=== PATIENT | male | born 1945 | race African-American/Black ===

== ENCOUNTER 2016-09-28 08:10 | Emergency (ER) | payer MEDICAID, MEDICARE ==
[~2016-09-28] VITALS: Ht 177.8 cm; Wt 69.4 kg
[2016-09-28 08:41] VITALS: BP 154/90
[2016-09-28] MEDS ORDERED: ACETAMINOPHEN 500 MG TAB PO ONE ×2 (08:41→08:45)
== END 2016-09-28 11:13 | disposition home or self-care (01) ==
LOC: EDBD 08:10 → ER 08:10
DX: S82.002A Unspecified fracture of left patella, initial encounter for closed fracture (principal); S20.211A Contusion of right front wall of thorax, initial encounter; J44.9 Chronic obstructive pulmonary disease, unspecified; E11.9 Type 2 diabetes mellitus without complications; I10 Essential (primary) hypertension; W01.0XXA Fall on same level from slipping, tripping and stumbling without subsequent striking against object, initial encounter; Y93.89 Activity, other specified; Y99.8 Other external cause status; Y92.89 Other specified places as the place of occurrence of the external cause
CPT/HCPCS: 29505; 71101; 73564

== ENCOUNTER 2016-12-30 23:53 | Inpatient (IN) | payer MEDICARE, MEDICAID ==
[~2016-12-30] VITALS: Ht 175.3 cm; Wt 71.2 kg
[2016-12-31 00:20] LABS: Urine RBC None Seen /hpf (0 - 3)
[2016-12-31] MEDS ORDERED: SODIUM CHLORIDE 0.9% 2,000 ML IV ONE (00:30)
[2016-12-31] MEDS ORDERED: PIPERACILLIN-TAZOB 3.375GM 100 ML IV ONE (00:30)
[2016-12-31] MEDS ORDERED: ACETAMINOPHEN 325 MG TAB PO ONE ×2 (00:30→03:15)
[2016-12-31] MEDS ORDERED: VANCOMYCIN 1GM/250ML D5W 250 ML IV ONE (00:30)
[2016-12-31 00:32] LABS: Urine Bilirubin Negative (Negative); Urine Blood Negative /uL (Negative); Urine Color Yellow (Yellow); Urine Glucose 4+ mg/dL (Normal); Urine Ketone 1+ (Negative); Urine Nitrite Negative (Negative); Urine Squamous Epithelial Cell FEW /hpf (<5); Urine Urobilinogen Normal (Negative); Urine pH 6.5 (5.0-8.0)
[2016-12-31 00:55] LABS: DEFINITIVE SEE PRINTOUT; Hemoglobin 10.8 g/dL (13.5-17.5); Mean Corpuscular Hemoglobin 20.6 pg (28.0-32.0); Mean Corpuscular Hgb Conc. 30.9 g/dL (32.0-36.0); Mean Corpuscular Volume 66.8 fL (80.0-100.0); Platelet Count (auto) 117 10^3/uL (140-450); Red Cell Distribution Width 16.5 % (11.6-16.0); SUSPECT SEE PRINTOUT; White Blood Cell 2.8 10^3/uL (4.4-10.8)
[2016-12-31 01:01] LABS: Albumin 3.8 g/dL (3.4-5.0); Anion Gap 12 (5-15); Aspartate Aminotransferase 9 U/L (15-37); BUN/Creatinine Ratio 14.5; Blood Urea Nitrogen 34 mg/dL (7-18); Calcium 8.9 mg/dL (8.5-10.1); Carbon Dioxide 22 mmol/L (21-32); Chloride 105 mmol/L (98-107); GFR African American 35 mL/min; GFR Non-African American 29 mL/min; Glucose 332 mg/dL (74-106); Potassium 4.2 mmol/L (3.5-5.1); Sodium 139 mmol/L (136-145)
[2016-12-31 01:06] LABS: Alkaline Phosphatase 53 U/L (45-117); Bilirubin, Total 0.8 mg/dL (0.2-1.0); Total Protein 8.5 g/dL (6.4-8.2)
[2016-12-31 01:06] LABS: Lactic Acid w/Reflex 2.8 mmol/L (0.4-2.0)
[2016-12-31 01:07] LABS: Metamyelocytes % 0; Myelocytes % 0; Promyelocytes % 0; Reactive Lymphocytes 0
[2016-12-31 01:08] LABS: REFLEX LACTIC ACID YES OR NO YES
[2016-12-31 01:10] LABS: INR 1.05 (0.9-1.15); Prothrombin Time 11.4 sec (9.37-12.3)
[2016-12-31 01:12] LABS: Temperature: 21.9 C (20.0-25.0)
[2016-12-31 02:19] LABS: Anisocytosis Moderate; Hypochromia Marked; Large Platelets FEW; Microcytosis Marked; Platelet Estimate Decrea
[2016-12-31 02:20] LABS: Ovalocytes MODERATE; Schistocytes FEW
[2016-12-31] MEDS ORDERED: SODIUM CHLORIDE 0.9% 1,000 ML IV ONE ×2 (03:15→04:00)
[2016-12-31] MEDS ORDERED: GABA-494 PO (04:46)
[2016-12-31] MEDS ORDERED: ENOX30IN5 SC (04:46)
[2016-12-31] MEDS ORDERED: OXY5T PO (04:46)
[2016-12-31] MEDS ORDERED: ENTE1TAB2 PO (04:46)
[2016-12-31] MEDS ORDERED: MYCO500T PO (04:46)
[2016-12-31] MEDS ORDERED: TACR1CAP19 PO (04:46)
[2016-12-31] MEDS ORDERED: PRE5T PO (04:46)
[2016-12-31] MEDS ORDERED: INSU1INJ5 SC (04:46)
[2016-12-31] MEDS ORDERED: TAMS0.4C36 PO (04:46)
[2016-12-31] MEDS ORDERED: PANT1INJ3 PO (04:46)
[2016-12-31] MEDS ORDERED: MULTCAP45 PO (04:46)
[2016-12-31] MEDS ORDERED: ATOR20TA50 PO (04:46)
[2016-12-31] MEDS ORDERED: FINA5TAB4 PO (04:46)
[2016-12-31] MEDS ORDERED: MORPHINE SULF INJ 2 MG/ML SYRINGE 1ML IV PRN ×2 (05:45)
[2016-12-31] MEDS ORDERED: cloNIDine HCL 0.1 MG TAB PO PRN (05:45)
[2016-12-31] MEDS ORDERED: DEXTROSE (50%) 50ML SYRG IV PRN (05:45)
[2016-12-31] MEDS ORDERED: METOPROLOL TARTRATE 1MG/1ML-5ML VIAL IV ONE (05:45)
[2016-12-31] MEDS ORDERED: VANCOMYCIN PER PHARMACY 0 MG IV SCH (05:45)
[2016-12-31] MEDS ORDERED: TEMAZEPAM 15 MG CAP PO PRN (05:45)
[2016-12-31] MEDS ORDERED: ACETAMINOPHEN 325 MG TAB PO PRN (05:45)
[2016-12-31] MEDS ORDERED: NITROGLYCERIN 0.4 MG SL TAB SL PRN (05:45)
[2016-12-31] MEDS ORDERED: ONDANSETRON HCL 4 MG/2 ML VIAL IV PRN (05:45)
[2016-12-31] MEDS ORDERED: HYDROcodone-ACET 5/325MG TAB PO PRN (05:45)
[2016-12-31] MEDS: SODIUM CHLORIDE 0.9% 1,000 ML IV SCH (05:57)
[2016-12-31] MEDS: ACCU-CHEK COMFORT CURVE STRIP VI SCH ×3 (06:04→17:41)
[2016-12-31] MEDS: InsuLIN REG 1unit/0.01ml Soln (100units/ml) SC SCH ×3 (06:07→17:49)
[2016-12-31] MEDS: PIPERACILLIN-TAZOB 2.25GM 50 ML IV SCH ×3 (06:12→18:15)
[2016-12-31] MEDS ORDERED: IBUPROFEN 600 MG TAB PO ONE (07:30)
[2016-12-31 09:00] VITALS: BP 125/60
[2016-12-31 09:41] VITALS: BP 100/61
[2016-12-31] MEDS: FINASTERIDE 5 MG TAB PO SCH (10:30)
[2016-12-31] MEDS: PANTOPRAZOLE 40 MG TAB PO SCH (10:30)
[2016-12-31] MEDS: ENOXAPARIN SOD 30 MG/0.3 ML SYRINGE SC SCH (10:31)
[2016-12-31] MEDS: predniSONE 5 MG TAB PO SCH (10:31)
[2016-12-31] MEDS: MYCOPHENOLATE 500 MG TAB PO SCH ×2 (10:57→21:15)
[2016-12-31] MEDS: TACROLIMUS 1 MG CAP PO SCH ×2 (10:58→21:15)
[2016-12-31 12:00] VITALS: BP 96/61
[2016-12-31 16:00] VITALS: BP 91/54
[2016-12-31 19:54] VITALS: BP 102/57
[2016-12-31] MEDS: ATORVASTATIN 20 MG TAB PO SCH (21:15)
[2017-01-01] VITALS: BP 126/61
[2017-01-01] MEDS: PIPERACILLIN-TAZOB 2.25GM 50 ML IV SCH ×4 (00:04→17:55)
[2017-01-01] MEDS: InsuLIN REG 1unit/0.01ml Soln (100units/ml) SC SCH ×4 (00:04→17:57)
[2017-01-01] MEDS: ACCU-CHEK COMFORT CURVE STRIP VI SCH ×4 (00:04→17:34)
[2017-01-01] MEDS: SODIUM CHLORIDE 0.9% 1,000 ML IV SCH ×3 (00:05→21:36)
[2017-01-01] MEDS ORDERED: VANCOMYCIN 1GM/250ML D5W 250 ML IV SCH (01:00)
[2017-01-01 04:00] VITALS: BP 138/69
[2017-01-01 05:00] LABS: CONDITION Y; DEFINITIVE SEE PRINTOUT; Hemoglobin 9.9 g/dL (13.5-17.5); Mean Corpuscular Hemoglobin 20.8 pg (28.0-32.0); Mean Corpuscular Hgb Conc. 31.1 g/dL (32.0-36.0); Mean Corpuscular Volume 66.8 fL (80.0-100.0); Mean Platelet Volume 9.5 fL (7.4-10.4); Platelet Count (auto) 110 10^3/uL (140-450); Red Cell Distribution Width 18.5 % (11.6-16.0); SUSPECT SEE PRINTOUT; White Blood Cell 4.1 10^3/uL (4.4-10.8)
[2017-01-01 05:10] LABS: Metamyelocytes % 0; Myelocytes % 0; Promyelocytes % 0; Reactive Lymphocytes 0
[2017-01-01 05:18] LABS: Albumin 2.9 g/dL (3.4-5.0); BUN/Creatinine Ratio 14.7; Bilirubin, Total 0.8 mg/dL (0.2-1.0); Magnesium 1.9 mg/dL (1.6-2.6); Potassium 4.1 mmol/L (3.5-5.1)
[2017-01-01 05:21] LABS: Lactic Acid w/Reflex 2.4 mmol/L (0.4-2.0)
[2017-01-01 05:26] LABS: REFLEX LACTIC ACID YES OR NO NO
[2017-01-01 05:44] LABS: Anisocytosis Moderate; Hypochromia Marked; Microcytosis Marked; Ovalocytes MODERATE; Platelet Estimate Decreased
[2017-01-01 08:00] VITALS: BP 147/80
[2017-01-01] MEDS: PANTOPRAZOLE 40 MG TAB PO SCH (09:53)
[2017-01-01] MEDS: predniSONE 5 MG TAB PO SCH (09:54)
[2017-01-01] MEDS: FINASTERIDE 5 MG TAB PO SCH (09:54)
[2017-01-01] MEDS: TACROLIMUS 1 MG CAP PO SCH ×2 (09:55→22:23)
[2017-01-01] MEDS: MYCOPHENOLATE 500 MG TAB PO SCH ×2 (09:55→22:22)
[2017-01-01] MEDS: ENOXAPARIN SOD 30 MG/0.3 ML SYRINGE SC SCH (09:56)
[2017-01-01 12:00] VITALS: BP 141/73
[2017-01-01] MEDS ORDERED: MAGNESIUM SULFATE 1GM/100ML 100 ML IV ONE (13:30)
[2017-01-01] MEDS ORDERED: FLUCONAZOLE 100MG/50ML 50 ML IV ONE (13:30)
[2017-01-01 15:55] VITALS: BP 106/68
[2017-01-01 19:50] VITALS: BP 109/64
[2017-01-01] MEDS: ATORVASTATIN 20 MG TAB PO SCH (22:22)
[2017-01-02] MEDS: ACCU-CHEK COMFORT CURVE STRIP VI SCH ×5 (00:14→23:52)
[2017-01-02] MEDS: InsuLIN REG 1unit/0.01ml Soln (100units/ml) SC SCH ×5 (00:24→23:53)
[2017-01-02 04:59] LABS: CONDITION Y; DEFINITIVE SEE PRINTOUT; Hemoglobin 9.1 g/dL (13.5-17.5); Mean Corpuscular Hemoglobin 20.6 pg (28.0-32.0); Mean Corpuscular Hgb Conc. 31.2 g/dL (32.0-36.0); Mean Platelet Volume 10.8 fL (7.4-10.4); Platelet Count (auto) 109 10^3/uL (140-450); Red Cell Distribution Width 18.1 % (11.6-16.0); SUSPECT SEE PRINTOUT; White Blood Cell 3.2 10^3/uL (4.4-10.8)
[2017-01-02 05:16] LABS: BUN/Creatinine Ratio 12.9; Magnesium 2.3 mg/dL (1.6-2.6); Potassium 3.9 mmol/L (3.5-5.1)
[2017-01-02 05:58] LABS: Metamyelocytes % 0; Myelocytes % 0; Promyelocytes % 0; Reactive Lymphocytes 0
[2017-01-02] MEDS: PIPERACILLIN-TAZOB 2.25GM 50 ML IV SCH ×5 (06:33→23:52)
[2017-01-02 06:56] LABS: Anisocytosis Moderate; Giant Platelets Few; Hypochromia Marked; Large Platelets FEW; Microcytosis Marked; Platelet Estimate Decrea; Stomatocytes Moderate
[2017-01-02 07:30] VITALS: BP 149/84
[2017-01-02] MEDS: SODIUM CHLORIDE 0.9% 1,000 ML IV SCH ×2 (09:17→17:19)
[2017-01-02] MEDS: FLUCONAZOLE 100MG/50ML 50 ML IV SCH (09:17)
[2017-01-02] MEDS: MYCOPHENOLATE 500 MG TAB PO SCH ×2 (09:18→22:23)
[2017-01-02] MEDS: predniSONE 5 MG TAB PO SCH (09:18)
[2017-01-02] MEDS: ENOXAPARIN SOD 30 MG/0.3 ML SYRINGE SC SCH (09:19)
[2017-01-02] MEDS: FINASTERIDE 5 MG TAB PO SCH (09:19)
[2017-01-02] MEDS: TACROLIMUS 1 MG CAP PO SCH ×2 (09:19→22:23)
[2017-01-02] MEDS: PANTOPRAZOLE 40 MG TAB PO SCH (09:19)
[2017-01-02 10:12] LABS: EBV Ab VCA IgG Antibody >600.0 U/mL (0.0-17.9); EBV Ab VCA IgM Antibody <36.0 U/mL (0.0-35.9); EBV Early Antigen IgG Antibody <9.0 U/mL (0.0-8.9)
[2017-01-02 12:00] VITALS: BP 149/99
[2017-01-02 16:00] VITALS: BP 141/70
[2017-01-02 20:00] VITALS: BP 141/84
[2017-01-02] MEDS: ATORVASTATIN 20 MG TAB PO SCH (22:23)
[2017-01-03] MEDS: SODIUM CHLORIDE 0.9% 1,000 ML IV SCH ×2 (03:19→12:59)
[2017-01-03 05:39] LABS: Calcium 8.3 mg/dL (8.5-10.1)
[2017-01-03] MEDS: InsuLIN REG 1unit/0.01ml Soln (100units/ml) SC SCH ×2 (05:50→12:00)
[2017-01-03] MEDS: ACCU-CHEK COMFORT CURVE STRIP VI SCH ×2 (05:50→12:04)
[2017-01-03] MEDS: PIPERACILLIN-TAZOB 2.25GM 50 ML IV SCH ×2 (05:50→12:04)
[2017-01-03 08:00] VITALS: BP 101/75
[2017-01-03] MEDS: MYCOPHENOLATE 500 MG TAB PO SCH (10:00)
[2017-01-03] MEDS: FLUCONAZOLE 100MG/50ML 50 ML IV SCH (10:00)
[2017-01-03] MEDS: predniSONE 5 MG TAB PO SCH (10:39)
[2017-01-03] MEDS: PANTOPRAZOLE 40 MG TAB PO SCH (10:39)
[2017-01-03] MEDS: FINASTERIDE 5 MG TAB PO SCH (10:40)
[2017-01-03] MEDS: TACROLIMUS 1 MG CAP PO SCH (10:40)
[2017-01-03] MEDS: ENOXAPARIN SOD 30 MG/0.3 ML SYRINGE SC SCH (10:41)
[2017-01-03 12:00] VITALS: BP 146/94
[2017-01-03] MEDS ORDERED: LEVO250T45 PO (12:15)
[2017-01-03] MEDS ORDERED: FLUC200T35 PO (12:15)
[2017-01-03] MEDS ORDERED: SACC250C PO (12:16)
[2017-01-04 09:13] LABS: Vitamin D 25-Hydroxy 16 ng/mL (.); Vitamin D-2 25-Hydroxy <1.0 ng/mL (.)
== END 2017-01-03 15:18 | disposition home or self-care (01) | DRG 871 ==
LOC: ER 23:53 → EDBD 23:53 → TELE 23:54 → DOU IN ICU 12-31 08:51
PROVIDERS: ADMIT Nurse Practitioner; ATTEND Internal Medicine
DX: A41.9 Sepsis, unspecified organism (principal); N17.0 Acute kidney failure with tubular necrosis; D61.818 Other pancytopenia; J18.9 Pneumonia, unspecified organism; E11.21 Type 2 diabetes mellitus with diabetic nephropathy; N18.4 Chronic kidney disease, stage 4 (severe); Z94.2 Lung transplant status; K74.60 Unspecified cirrhosis of liver; E11.22 Type 2 diabetes mellitus with diabetic chronic kidney disease; F11.20 Opioid dependence, uncomplicated; J44.9 Chronic obstructive pulmonary disease, unspecified; N12 Tubulo-interstitial nephritis, not specified as acute or chronic; B37.49 Other urogenital candidiasis; N40.0 Benign prostatic hyperplasia without lower urinary tract symptoms; B19.20 Unspecified viral hepatitis C without hepatic coma; I12.9 Hypertensive chronic kidney disease with stage 1 through stage 4 chronic kidney disease, or unspecified chronic kidney disease; Z82.3 Family history of stroke; Z87.891 Personal history of nicotine dependence
CPT/HCPCS: 36415; 70450; 71010; 71250; 73562; 74176; 76775; 80048; 80053; 80061; 80197; 80202; 80307; 81001; 82306; 82570; 82962; 83036; 83605; 83735; 83880; 83970; 84100; 84156; 84300; 84484; 85007; 85027; 85610; 85730; 86160; 86644; 86645; 86664; 86701; 86703; 86803; 87040; 87081; 87086; 87340; 93005; 93306; 94761; 96361; 96365; 96366; 96368; 97163; J1450; J1815; J2543; J7507; J7517

== ENCOUNTER 2022-03-23 12:10 | Inpatient (IN) | payer MEDICAID, MEDICARE, OTHER ==
[~2022-03-23] VITALS: Ht 188 cm; Wt 77.0 kg
[~2022-03-23 12:10] MED LIST: ATOR20TA50 PO; ENOX30IN5 SC; ENTE1TAB12 PO; FINA5TAB4 PO; FLUC200T35 PO; GABA100C9 PO; INSU1INJ5 SC; LEVO250T19 PO; MULTCAP45 PO; MYCO500T PO; OXY5T PO; PANT1INJ3 PO; PRE5T PO; SACC250C PO; TACR1CAP19 PO; TAMS0.4C36 PO
[2022-03-23] MEDS ORDERED: levoFLOXacin 750MG 150 ML IV ONE (13:00)
[2022-03-23] MEDS ORDERED: cefTRIAXone 1GM/50ML D5W 50 ML IV ONE (13:00)
[2022-03-23 13:31] LABS: Basophils # (auto) 0.1 10 ^3/uL (0-0.2); Eosinophils # (auto) 0 10 ^3/uL (0-0.8); Lymphocytes # (auto) 1.4 10 ^3/uL (0.4-5.4); Monocytes # (auto) 0.6 10 ^3/uL (0-1.3)
[2022-03-23 13:33] LABS: Eosinophils % (auto) 0.1 % (0.0-7.0); Lymphocytes % (auto) 15.1 % (10.0-50.0); Mean Corpuscular Hemoglobin 18.5 pg (28.0-32.0); Mean Corpuscular Hgb Conc. 30.7 g/dL (32.0-36.0); Mean Corpuscular Volume 60.3 fL (80.0-100.0); Monocytes % (auto) 6.5 % (0.0-12.0); Neutrophils # (auto) 7.1 10 ^3/uL (1.6-8.6); Neutrophils % (auto) 77.3 % (37.0-80.0); Nucleated Red Blood Cells % 0.3 %; Red Blood Cells 6.47 10^6/uL (4.5-5.90); Red Cell Distribution Width 19.9 % (11.8-14.3); White Blood Cell 9.2 10^3/uL (4.4-10.8)
[2022-03-23 14:03] LABS: Albumin 3.1 g/dL (3.4-5.0); BUN/Creatinine Ratio 9.4; Calcium 8.8 mg/dL (8.5-10.1); Potassium 4.6 mmol/L (3.5-5.1)
[2022-03-23 14:05] LABS: Bilirubin, Total 0.5 mg/dL (0.2-1.0); Magnesium 2.5 mg/dL (1.6-2.6); Total Protein 7.6 g/dL (6.4-8.2)
[2022-03-23] MEDS ORDERED: REMDESIVIR PER PHARMACY 0 ML IV SCH (14:30)
[2022-03-23] MEDS ORDERED: methylPREDNISolone SOD SUCC 125 MG/2 ML VL IV ONE (14:30)
[2022-03-23] MEDS ORDERED: ALBUTEROL SULF HFA 90MCG INH 200DOSE IN PRN (15:00)
[2022-03-23] MEDS ORDERED: ACETAMINOPHEN 500 MG TAB PO PRN (15:00)
[2022-03-23 16:01] LABS: Magnesium 2.2 mg/dL (1.6-2.6)
[2022-03-23 16:10] LABS: CRP High Sensitivity 4.89 mg/dL (< 0.3)
[2022-03-23 16:13] LABS: Thyroid Stimulating Hormone 0.75 uIU/mL (0.358-3.74)
[2022-03-23] MEDS ORDERED: MORPHINE SULFATE INJ 2 MG/ml SYRG IV PRN (16:15)
[2022-03-23] MEDS ORDERED: NITROGLYCERIN 0.4 MG SL TAB SL PRN (16:15)
[2022-03-23] MEDS: PANTOPRAZOLE 40 MG/10 ML VIAL INJ IV SCH (16:59)
[2022-03-23] MEDS: TAMSULOSIN HYDROCHLORIDE 0.4 MG CAP PO SCH (18:41)
[2022-03-23 19:23] LABS: Urine Bacteria FEW /hpf (None Seen); Urine Blood 1+ /uL (Negative); Urine Specific Gravity 1.016 (1.001-1.035); Urine WBC 1 /hpf (0 - 3)
[2022-03-23] MEDS ORDERED: MYCOPHENOLATE 500 MG TAB PO SCH (22:00)
[2022-03-23] MEDS: TACROLIMUS 3 MG PO SCH (22:00)
[2022-03-23] MEDS: [UNRECOGNIZED DRUG - OTHER] PO SCH (22:00)
[2022-03-23] MEDS: GABAPENTIN 100 MG CAP PO SCH (22:49)
[2022-03-23] MEDS: FINASTERIDE 5 MG TAB PO SCH (22:49)
[2022-03-23] MEDS: ATORVASTATIN 20 MG TAB PO SCH (22:50)
[2022-03-23 23:32] VITALS: BP 114/75
[2022-03-24] VITALS (7 sets, daily range): BP systolic 111–124; BP diastolic 68–93
[2022-03-24] MEDS: SODIUM BICARBONATE 50ML VIAL 50 ML in SOD CHL 0.45% 1,000 ML IV SCH ×2 (05:00→19:00)
[2022-03-24] MEDS: GABAPENTIN 100 MG CAP PO SCH ×3 (05:24→22:27)
[2022-03-24 06:27] LABS: Basophils # (auto) 0 10 ^3/uL (0-0.2); Eosinophils # (auto) 0 10 ^3/uL (0-0.8); Hemoglobin 10.4 g/dL (13.5-17.5); Monocytes # (auto) 0 10 ^3/uL (0-1.3); Nucleated Red Blood Cells % 0.1 %; Red Cell Distribution Width 20.1 % (11.8-14.3); White Blood Cell 4.8 10^3/uL (4.4-10.8)
[2022-03-24 06:28] LABS: Basophils % (auto) 0.2 % (0.0-2.0); Hematocrit 33.7 % (41.0-53.0); Lymphocytes # (auto) 0.4 10 ^3/uL (0.4-5.4); Lymphocytes % (auto) 8.4 % (10.0-50.0); Mean Corpuscular Hemoglobin 18.9 pg (28.0-32.0); Mean Corpuscular Hgb Conc. 30.8 g/dL (32.0-36.0); Mean Corpuscular Volume 61.3 fL (80.0-100.0); Monocytes % (auto) 0.7 % (0.0-12.0); Neutrophils # (auto) 4.3 10 ^3/uL (1.6-8.6); Neutrophils % (auto) 90.7 % (37.0-80.0); Red Blood Cells 5.49 10^6/uL (4.5-5.90)
[2022-03-24 06:39] LABS: Albumin 2.6 g/dL (3.4-5.0); Calcium 8.3 mg/dL (8.5-10.1); Potassium 5.2 mmol/L (3.5-5.1)
[2022-03-24 06:43] LABS: Bilirubin, Total 0.5 mg/dL (0.2-1.0); Total Protein 6.6 g/dL (6.4-8.2)
[2022-03-24 07:12] LABS: BUN/Creatinine Ratio 13.4
[2022-03-24] MEDS: TACROLIMUS 3 MG PO SCH ×2 (10:00→22:00)
[2022-03-24] MEDS ORDERED: DEXTROSE (50%) 50ML SYRG IV PRN (11:00)
[2022-03-24] MEDS: ZINC SULFATE 220mg CAP or TAB PO SCH (13:38)
[2022-03-24] MEDS: ENOXAPARIN SOD 30 MG/0.3 ML SYRINGE SC SCH (13:38)
[2022-03-24] MEDS: PANTOPRAZOLE 40 MG/10 ML VIAL INJ IV SCH (13:38)
[2022-03-24] MEDS: DexAMETHasone SOD PHOS 10MG/1ML VIAL INJ IV SCH (13:39)
[2022-03-24] MEDS: CHOLECALCIFEROL (VITD3) 2,000 UNIT CAP/TAB PO SCH (13:39)
[2022-03-24] MEDS: ASCORBIC ACID 1,000 MG TAB PO SCH (13:39)
[2022-03-24] MEDS: AZITHROMYCIN 500MG/ 250ML 250 ML IV SCH (14:57)
[2022-03-24] MEDS: cefTRIAXone 1GM/50ML D5W 50 ML IV SCH (18:45)
[2022-03-24] MEDS: TAMSULOSIN HYDROCHLORIDE 0.4 MG CAP PO SCH (18:52)
[2022-03-24] MEDS: InsuLIN REG 1unit/0.01ml Soln (100units/ml) SC SCH ×3 (21:32→23:39)
[2022-03-24] MEDS: ACCU-CHEK COMFORT CURVE STRIP VI SCH ×3 (21:36→23:34)
[2022-03-24] MEDS: MYCOPHENOLATE 250 MG CAP PO SCH (22:00)
[2022-03-24] MEDS: [UNRECOGNIZED DRUG - OTHER] PO SCH (22:00)
[2022-03-24] MEDS: ATORVASTATIN 20 MG TAB PO SCH (22:27)
[2022-03-24] MEDS: FINASTERIDE 5 MG TAB PO SCH (22:28)
[2022-03-25 04:43] VITALS: BP 139/87
[2022-03-25 05:27] LABS: Eosinophils # (auto) 0 10 ^3/uL (0-0.8); Mean Corpuscular Hemoglobin 18.4 pg (28.0-32.0); Monocytes # (auto) 0.2 10 ^3/uL (0-1.3)
[2022-03-25 05:30] LABS: Basophils # (auto) 0 10 ^3/uL (0-0.2); Basophils % (auto) 0.2 % (0.0-2.0); Hematocrit 34.2 % (41.0-53.0); Hemoglobin 10.7 g/dL (13.5-17.5); Lymphocytes # (auto) 0.4 10 ^3/uL (0.4-5.4); Lymphocytes % (auto) 3.3 % (10.0-50.0); Mean Corpuscular Hgb Conc. 31.2 g/dL (32.0-36.0); Mean Corpuscular Volume 58.8 fL (80.0-100.0); Monocytes % (auto) 1.7 % (0.0-12.0); Neutrophils # (auto) 11.8 10 ^3/uL (1.6-8.6); Neutrophils % (auto) 94.8 % (37.0-80.0); Nucleated Red Blood Cells % 0.1 %; Red Blood Cells 5.82 10^6/uL (4.5-5.90); Red Cell Distribution Width 19.3 % (11.8-14.3); White Blood Cell 12.4 10^3/uL (4.4-10.8)
[2022-03-25] MEDS: InsuLIN REG 1unit/0.01ml Soln (100units/ml) SC SCH ×2 (05:48→12:00)
[2022-03-25] MEDS: ACCU-CHEK COMFORT CURVE STRIP VI SCH ×2 (05:48→11:59)
[2022-03-25 05:49] LABS: BUN/Creatinine Ratio 18.3; Calcium 8.3 mg/dL (8.5-10.1); Potassium 4.6 mmol/L (3.5-5.1)
[2022-03-25] MEDS: GABAPENTIN 100 MG CAP PO SCH ×2 (05:56→14:53)
[2022-03-25 06:00] LABS: CRP High Sensitivity 4.87 mg/dL (< 0.3)
[2022-03-25] MEDS: SODIUM BICARBONATE 50ML VIAL 50 ML in SOD CHL 0.45% 1,000 ML IV SCH (07:00)
[2022-03-25 09:00] VITALS: BP 123/72
[2022-03-25] MEDS ORDERED: cefTRIAXone SOD 1,000 MG VL IM SCH (09:00)
[2022-03-25] MEDS: cefTRIAXone 1GM/50ML D5W 50 ML IV SCH (09:05)
[2022-03-25] MEDS: DexAMETHasone SOD PHOS 10MG/1ML VIAL INJ IV SCH (09:31)
[2022-03-25] MEDS: ENOXAPARIN SOD 30 MG/0.3 ML SYRINGE SC SCH (09:35)
[2022-03-25] MEDS: CHOLECALCIFEROL (VITD3) 2,000 UNIT CAP/TAB PO SCH (09:36)
[2022-03-25] MEDS: ZINC SULFATE 220mg CAP or TAB PO SCH (09:36)
[2022-03-25] MEDS: ASCORBIC ACID 1,000 MG TAB PO SCH (09:36)
[2022-03-25] MEDS: AZITHROMYCIN 500MG/ 250ML 250 ML IV SCH (09:37)
[2022-03-25] MEDS: MYCOPHENOLATE 250 MG CAP PO SCH (09:40)
[2022-03-25] MEDS: PANTOPRAZOLE 40 MG/10 ML VIAL INJ IV SCH (09:41)
[2022-03-25] MEDS: TACROLIMUS 3 MG PO SCH (10:00)
[2022-03-25] MEDS ORDERED: DEXA6TAB6 PO (10:36)
[2022-03-25] MEDS ORDERED: ALBUAER3 IN (10:36)
[2022-03-25] MEDS ORDERED: DOXY-332 PO (10:36)
[2022-03-25 11:24] VITALS: BP 123/72
[2022-03-25 13:00] VITALS: BP 130/74
[2022-03-25 17:00] VITALS: BP 133/79
== END 2022-03-25 16:00 | disposition home health service (06) | DRG 177 ==
LOC: EDBD 12:10 → ER 12:10 → TELE 16:05 → TELE-CENTR 23:08
PROVIDERS: ADMIT Nurse Practitioner Family; ATTEND Nurse Practitioner Family
DX: U07.1 COVID-19 (principal); J12.82 Pneumonia due to coronavirus disease 2019; J96.01 Acute respiratory failure with hypoxia; N17.0 Acute kidney failure with tubular necrosis; J44.0 Chronic obstructive pulmonary disease with (acute) lower respiratory infection; J98.11 Atelectasis; N18.4 Chronic kidney disease, stage 4 (severe); Z94.2 Lung transplant status; D63.1 Anemia in chronic kidney disease; E11.22 Type 2 diabetes mellitus with diabetic chronic kidney disease; E11.40 Type 2 diabetes mellitus with diabetic neuropathy, unspecified; E11.65 Type 2 diabetes mellitus with hyperglycemia; E78.5 Hyperlipidemia, unspecified; E87.5 Hyperkalemia; I12.9 Hypertensive chronic kidney disease with stage 1 through stage 4 chronic kidney disease, or unspecified chronic kidney disease; K21.9 Gastro-esophageal reflux disease without esophagitis; N40.0 Benign prostatic hyperplasia without lower urinary tract symptoms; Z79.624 Long term (current) use of inhibitors of nucleotide synthesis; Z79.899 Other long term (current) drug therapy; Z82.3 Family history of stroke; Z83.3 Family history of diabetes mellitus; Z87.891 Personal history of nicotine dependence; Z86.19 Personal history of other infectious and parasitic diseases
CPT/HCPCS: 36415; 71045; 76775; 80048; 80053; 81001; 82306; 82728; 82962; 83036; 83605; 83615; 83735; 83880; 83970; 84100; 84443; 84484; 85025; 85379; 86141; 87040; 87081; 87426; 87804; 93005; 93970; 94640; 96365; 96368; 96375; 97163; 99291; C9113; G0378; J0696; J1100; J1815; J1956; J7517

== ENCOUNTER 2024-03-05 01:30 | Inpatient (IN) | payer OTHER ==
[2024-03-05] VITALS (32 sets, daily range): BP systolic 85–131; BP diastolic 45–78; PULSE 75–142; RESP 13–30; TEMP 99.1–100.8; O2SAT 84–100
[~2024-03-05] VITALS: Ht 172.7 cm; Wt 77.0 kg
[~2024-03-05 01:30] MED LIST changes: +ALBUAER3 IN; +DEXA6TAB6 PO; +DOXY100C79 PO; +FLUC200T PO; -FLUC200T35 PO; +GABA-1308 PO; -GABA100C9 PO; -TAMS0.4C36 PO; +TAMS0.4C39 PO
[2024-03-05] MEDS: HYDROcodone-ACET 5/325MG TAB PO ONE ×2 (02:59→07:03)
[2024-03-05 03:16] LABS: Basophils # (auto) 0.1 10 ^3/uL (0-0.2); Eosinophils # (auto) 0 10 ^3/uL (0-0.8); Mean Corpuscular Volume 62.8 fL (80.0-100.0)
[2024-03-05 03:18] LABS: Basophils % (auto) 0.5 % (0.0-2.0); Eosinophils % (auto) 0.2 % (0.0-7.0); Hematocrit 28.8 % (41.0-53.0); Hemoglobin 8.7 g/dL (13.5-17.5); Lymphocytes # (auto) 1.1 10 ^3/uL (0.4-5.4); Lymphocytes % (auto) 9.5 % (10.0-50.0); Mean Corpuscular Hgb Conc. 30.3 g/dL (32.0-36.0); Monocytes # (auto) 0.5 10 ^3/uL (0-1.3); Monocytes % (auto) 4.4 % (0.0-12.0); Neutrophils # (auto) 9.4 10 ^3/uL (1.6-8.6); Neutrophils % (auto) 85.4 % (37.0-80.0); Nucleated Red Blood Cells % 0.1 %; Platelet Count (auto) 165 10^3/uL (140-450); Red Blood Cells 4.59 10^6/uL (4.5-5.90); Red Cell Distribution Width 19.5 % (11.8-14.3); White Blood Cell 11.1 10^3/uL (4.4-10.8)
[2024-03-05 03:26] LABS: Alanine Aminotransferase 22 U/L (7-40); Albumin 4.2 g/dL (3.2-4.8); Alkaline Phosphatase 51 U/L (46-116); Anion Gap 12 (5-15); Aspartate Aminotransferase 21 U/L (13-40); BUN/Creatinine Ratio 12.5 (10.0-20.0); Bilirubin, Total 0.4 mg/dL (0.2-1.0); Blood Urea Nitrogen 36 mg/dL (9-23); Carbon Dioxide 20 mmol/L (20-31); Chloride 109 mmol/L (98-107); Glucose 103 mg/dL (74-106); Potassium 3.9 mmol/L (3.5-5.1); Sodium 141 mmol/L (136-145); Total Protein 6.7 g/dL (5.7-8.2)
[2024-03-05 03:30] LABS: INR 1.07 (0.9-1.15); Partial Thromboplastin Time 21.2 SEC (24.5-34.5); Prothrombin Time 11.3 sec (9.3-11.8)
[2024-03-05 04:11] LABS: Anisocytosis Slight; Hypochromia Marked; Ovalocytes FEW; Platelet Estimate Adequate; Target Cell FEW
[2024-03-05] MEDS: METOPROLOL TARTRATE 1MG/1ML-5ML VIAL IV SCH (04:20)
--- NOTE | 2024-03-05 04:20 | ED.PDOC ---
History of Present Illness HPI Comments 78 y/o M, with a Hx of AFIB, COPD w/home O2, DM, HLD, HTN, liver disease, bilateral lung transplant, and former tobacco use, is BIBA for c/o buttock pain s/p mechanical fall and injury, today. Per EMS report, patient fell from ground- level and landed on his buttocks in his bathtub, while trying to get out, this morning. Patient endorses on no head or additional injuries along with LOC. Patient states pain being an 8/10 and non-radiating. On scene, patient was found in AFIB RVR and a blood glucose of 93, with all remaining vitals within normal limits. En route, patient was given 2.5L NS bolus. Patient denies having any prior symptoms to fall in addition to any current weakness, numbness, tingling sensation, chest pain, shortness of breath, or other associated symptoms or modifiers at this time. Chief Complaint: Fall Injury Time Seen by MD: 01:40 Primary Care Provider: LUIS ANTONIO Reviewed Notes: Nurses Notes, Pillar Man Notes, Medications, Allergies Allergies: Coded Allergies: No Known Drug Allergy (Verified Allergy, Unknown, 08/25/15) Home Meds Active Scripts Doxycycline (Monohydrate) (Doxycycline) 100 Mg Cap, 100 MG PO BID, #14 CAP Prov:REINALDO KRAUS MD 03/25/22 Albuterol Sulfate (VENTOLIN MDI) 90 Mcg Ih, 2 PUFF IN Q4HPRN PRN, #1 INHALER Prov:REINALDO KRAUS MD 03/25/22 Dexamethasone (Decadron) 6 Mg Tab, 6 MG PO DAILY@BREAKFAST, #8 TAB Prov:REINALDO KRAUS MD 03/25/22 Yeast (S. Boulardii)(S. Cerevi (Florastor) 250 Mg Cap, 250 MG PO DAILY, #7 CAP Prov:CATHERINE VALDES MD 01/03/17 Levofloxacin (Levaquin) 250 Mg Tab, 250 MG PO DAILY, #5 TAB Prov:CATHERINE VALDES MD 01/03/17 Fluconazole (Diflucan) 200 Mg Tab, 1 TAB PO DAILY, #7 TAB Prov:CATHERINE VALDES MD 01/03/17 Reported Medications Oxycodone Hcl (OXYCODONE HCL) 5 Mg Tb, 10 MG PO Q4HPRN PRN for MODERATE PAIN 12/31/16 Tamsulosin Hcl (Tamsulosin Hcl) 0.4 Mg Cap, 0.4 MG PO QPM for 30 Days, MG 12/31/16 Tacrolimus (ASTAGRAF XL) 1 Mg Cap, 3 MG PO BID, CAP 12/31/16 Prednisone (PREDNISONE) 5 Mg Tb, 10 MG PO DAILY 12/31/16 Pantoprazole Sodium (PANTOPRAZOLE SODIUM) 40 Mg Inj, 40 MG PO DAILY, INJ 12/31/16 Mycophenolate Mofetil (Cellcept) 500 Mg Tab, 2 TAB PO BID, #360 TAB 3 Refills 12/31/16 Multiple Vitamin (Multivitamins) Cap, 1 CAP PO DAILY, #30 CAP 3 Refills 12/31/16 Insulin Detemir (Levemir Flextouch) 100 Unit/Ml Inj, 100 UNIT SC HS, INJ 12/31/16 Gabapentin (Gabapentin) 100 Mg Cap, 100 MG PO TID 12/31/16 Finasteride (Finasteride) 5 Mg Tab, 5 MG PO HS for 30 Days, MG 12/31/16 Entecavir Monohydrate (Entecavir) 0.5 Mg Tab, 0.5 MG PO HS, TAB 12/31/16 Enoxaparin Sodium (Enoxaparin Sodium) 30 Mg/0.3 Ml Inj, 30 MG SC HS, INJ 12/31/16 Atorvastatin Calcium (ATORVASTATIN CALCIUM) 20 Mg Tab, 20 MG PO HS, TAB 12/31/16 Information Source: Patient, Emergency Med Personnel Mode of Arrival: EMS Severity: Moderate Timing: Hours Duration: Since onset Prehospital treatment: 12 Lead EKG, Accucheck (93), Envelope Maker Past Medical History PAST MEDICAL HISTORY: AFIB, COPD (w/home O2), DM, High Lipids, HTN, Liver Surgical History (Other): bilateral lung transplant in 2016 Family History Family History: Family hx of Cancer Social History Smoker: Quit Greater Than 1 Year Alcohol: Denies ETOH Use Drugs: Denies Drug Use Lives In: Home Constitutional: denies: chills, diaphoresis, fatigue, fever, malaise, sweats, weakness, others EENTM: denies: blurred vision, double vision, ear bleeding, ear discharge, ear drainage, ear pain, ear ringing, eye pain, eye redness, hearing loss, mouth pain, mouth swelling, nasal discharge, nose bleeding, nose congestion, nose pain, photophobia, tearing, throat pain, throat swelling, voice changes, others Respiratory: denies: cough, hemoptysis, orthopnea, SOB at rest, shortness of breath, SOB with excertion, stridor, wheezing, others Cardiovascular: denies: chest pain, dizzy spells, diaphoresis, Dyspnea on exertion, edema, irregular heart beat, left arm pain, lightheadedness, palpitations, PND, syncope, others Gastrointestinal: denies: abdomen distended, abdominal pain, blood streaked bowels, constipated, diarrhea, dysphagia, difficulty swallowing, hematemesis, melena, nausea, poor appetite, poor fluid intake, rectal bleeding, rectal pain, vomiting, others Genitourinary: denies: burning, dysuria, flank pain, frequency, hematuria, incontinence, penile discharge, penile sore, pain, testicle pain, testicle swelling, urgency, others Neurological: denies: dizziness, fainting, headache, left sided numbness, left sided weakness, numbness, paresthesia, pre-existing deficit, right sided numbness, right sided weakness, seizure, speech problems, tingling, tremors, weakness, others Musculoskeletal: reports: others (buttock pain); denies: back pain, gout, joint pain, joint swelling, muscle pain, muscle stiffness, neck pain Integumetry: denies: bruises, change in color, change in hair/nails, dryness, laceration, lesions, lumps, rash, wounds, others Allergic/Immunocompromised: denies: Difficulty Healing, Frequent Infections, Hives, Itching, others Hematologic/Lymphatic: denies: anemia, blood clots, easy bleeding, easy bruising, swollen glands, others Endocrine: denies: excessive hunger, excessive sweating, excessive thirst, excessive urination, flushing, intolerance to cold, intolerance to heat, unexplained weight gain, unexplained weight loss, others Psychiatric: denies: anxiety, bipolar disorder, depression, hopeless, panic disorder, schizophrenia, sleepless, suicidal, others All Other Systems: Reviewed and Negative Physical Exam General Appearance: Mild Distress, Normal HEENT: Normal ENT Inspection, Pharynx Normal, TMs Normal Neck: Full Range of Motion, Non-Tender, Normal, Normal Inspection Respiratory: Chest Non-Tender, Lungs Clear, No Accessory Muscle Use, No Respiratory Distress, Normal Breath Sounds Cardiovascular: No Edema, No JVD, No Murmur, No Gallop, Normal Peripheral Pulses, Regular Rate/Rhythm Breast Exam: Deferred Gastrointestinal: No Organomegaly, Non Tender, No Pulsatile Mass, Normal Bowel Sounds, Soft Genitalia: Deferred Pelvic: Deferred Rectal: Deferred Extremities: No calf tenderness, Normal capillary refill, Normal inspection, Normal range of motion, Non-tender, No pedal edema Musculoskeletal : Apperance: Normal Neurologic: Alert, verification lead II-XII nml as Tested, No Motor Deficits, Normal Affect, Normal Mood, No Sensory Deficits Cerebellar Function: Normal Reflexes: Normal Skin: Dry, Normal Color, Warm Lymphatic: No Adenopathy Was a procedure done? Was a procedure done?: No Differential Dx Considerations may include: fracture, dislocation, sprain, bruising, contusions X-Ray, Labs, Meds, VS Vital Signs Date Time Temp Pulse Resp B/P (MAP) Pulse Ox O2 Delivery O2 Flow Rate FiO2 03/05/24 05:20 106 105/54 03/05/24 05:19 121 97/67 03/05/24 05:10 120 105/54 03/05/24 04:21 144 98/59 03/05/24 04:20 164 98/59 03/05/24 04:07 127 23 98/59 (72) 93 03/05/24 02:34 120 18 96 Simple Mask* 10 99 03/05/24 02:29 97.8 120 18 114/88 (97) 96 97.8 03/05/24 01:52 154 03/05/24 01:49 98.0 125 20 112/79 (90) 92 Lab Test 03/05/24 03:45 03/05/24 02:55 Range/Units Troponin I High Sensitivity 12 11 </=54 ng/L White Blood Count 11.1 H 4.4-10.8 10^3/uL Red Blood Count 4.59 4.5-5.90 10^6/uL Hemoglobin 8.7 L 13.5-17.5 g/dL Hematocrit 28.8 L 41.0-53.0 % Mean Corpuscular Volume 62.8 L 80.0-100.0 fL Mean Corpuscular Hemoglobin 19.0 L 28.0-32.0 pg Mean Corpuscular Hemoglobin Concent 30.3 L 32.0-36.0 g/dL Red Cell Distribution Width 19.5 H 11.8-14.3 % Platelet Count 165 140-450 10^3/uL Mean Platelet Volume 8.3 6.9-10.8 fL Neutrophils (%) (Auto) 85.4 H 37.0-80.0 % Lymphocytes (%) (Auto) 9.5 L 10.0-50.0 % Monocytes (%) (Auto) 4.4 0.0-12.0 % Eosinophils (%) (Auto) 0.2 0.0-7.0 % Basophils (%) (Auto) 0.5 0.0-2.0 % Neutrophils # (Auto) 9.4 H 1.6-8.6 10 ^3/uL Lymphocytes # (Auto) 1.1 0.4-5.4 10 ^3/uL Monocytes # (Auto) 0.5 0-1.3 10 ^3/uL Eosinophils # (Auto) 0 0-0.8 10 ^3/uL Basophils # (Auto) 0.1 0-0.2 10 ^3/uL Nucleated Red Blood Cells 0.1 % Platelet Estimate Adequate Hypochromasia (manual) Marked Poikilocytosis (manual) Slight Anisocytosis (manual) Slight Microcytosis Marked Target Cells Few Ovalocytes Few Dona Cells Moderate Schistocytes Few Prothrombin Time 11.3 9.3-11.8 sec Prothrombin Time INR 1.07 0.9-1.15 Activated Partial Thromboplast Time 21.2 L 24.5-34.5 SEC Sodium Level 141 136-145 mmol/L Potassium Level 3.9 3.5-5.1 mmol/L Chloride Level 109 H 98-107 mmol/L Carbon Dioxide Level 20 20-31 mmol/L Anion Gap 12 5-15 Blood Urea Nitrogen 36 H 9-23 mg/dL Creatinine 2.87 H 0.700-1.30 mg/dL Glomerular Filtration Rate Calc 22 >90 mL/min BUN/Creatinine Ratio 12.5 10.0-20.0 Serum Glucose 103 74-106 mg/dL Calcium Level 9.0 8.7-10.4 mg/dL Total Bilirubin 0.4 0.2-1.0 mg/dL Aspartate Amino Transferase (AST) 21 13-40 U/L Alanine Aminotransferase (ALT) 22 7-40 U/L Alkaline Phosphatase 51 46-116 U/L B-Type Natriuretic Peptide 71.78 0-100 pg/mL Total Protein 6.7 5.7-8.2 g/dL Albumin 4.2 3.2-4.8 g/dL Current Medications Medications (Trade) Dose Ordered Sig/Anish Route Start Time Stop Time Status Last Admin Acetaminophen/ Hydrocodone Bitart ([place] 5/325MG Tab) 1 tab ONCE ONCE PO 03/05/24 02:45 03/05/24 02:46 DC 03/05/24 02:59 Metoprolol Tartrate (Lopressor) 5 mg Q5M IV 03/05/24 04:15 03/05/24 05:10 First troponin is 11. Second troponin is 12. EKG shows AFib fibrillation White blood cell count is 11.1. BUN 36 and creatinine is 2.9 The patient was given metoprolol for atrial fibrillation. He will be admitted to the hospitalist for further evaluation and care. Time of 1ST Reevaluation: 02:10 Reevaluation 1ST: Unchanged Patient Education/Counseling: Diagnosis, Treatment Family Education/Counseling: No Family Present Departure 1 Departure Time of Disposition: 05:43 Impression: Primary Impression: Atrial fibrillation Qualified Codes: I48.91 - Unspecified atrial fibrillation Additional Impressions: Fall Qualified Codes: W19.XXXA - Unspecified fall, initial encounter L1 vertebral fracture Qualified Codes: S32.019A - Unspecified fracture of first lumbar vertebra, initial encounter for closed fracture L5 vertebral fracture Qualified Codes: S32.059S - Unspecified fracture of fifth lumbar vertebra, sequela Disposition: ADMITTED INPATIENT Admit to: Tele Condition: Guarded Critical Care Note Critical Care Time?: No Stability Stability form required: No I personally scribed for AFRICA RUIZ MD ([email or web address]) on 03/05/24 at 04:20. Electronically submitted by Carlos Newberry [email or web address]). AFRICA RUIZ MD Mar 05, 2024 04:20
--- NOTE | 2024-03-05 04:26 | DVH ---
Examination: LS2CT CLINICAL INDICATION: fall COMPARISON: None. CONTRAST USED: None. TECHNIQUE: Axial sections through the lumbar spine with sagittal and coronal reformats are obtained without contrast. Multiplanar reconstructions were obtained. CT scan done according to ALARA (As Low As Reasonably Achievable). FINDINGS: The alignment of the lumbosacral spine is maintained. Degenerative changes are seen in the form of multilevel marginal osteophytes and Schmorls nodes. Acute fracture is seen involving the L1 vertebra with mild reduction in height. Chronic compression deformity with severe reduction in the height of L5 vertebra is seen. There is posterior retropulsion of the posterior cortex into the spinal canal causing spinal canal st enosis. Rest of the vertebral bodies and posterior elements are unremarkable. No destructive bony lesion is n oted. The pre and paravertebral soft tissues are unremarkable. The sacroiliac joints are unremarkab le to the extent visualized. Atherosclerotic changes are seen involving the descending abdominal aorta and bilateral iliac arterie s with ectasia. Multiple calcified periportal lymph nodes are seen. Incidentally detected bilateral renal [place] 1 simple cortical cysts, largest measuring 29 mm in rig ht kidney. No follow-up is recommended as incidentally detected renal lesions are likely benign. Rest of the abdominal organs to the extent visualized are unremarkable. Diffuse osteopenia. Chronic fracture of the right 11th rib is seen. Post-operative surgical hardware is proximal of right femur. T12-L1: Disc height is within normal limits. There is no significant disc herniation, central canal or neural foraminal narrowing. The facet joints and ligamentum flavum are within normal limits. L1-L2: Disc height is within normal limits. There is no significant disc herniation, central canal or neural foraminal narrowing. The facet joints and ligamentum flavum are within normal limits. L2-L3: Disc height is within normal limits. There is no significant disc herniation, central canal or neural foraminal narrowing. The facet joints and ligamentum flavum are within normal limits. L3-L4: Disc height is within normal limits. Diffuse disc bulge is seen, measuring 1.8 mm indenting on the ventral thecal sac. Bilateral neural foraminal narrowing is seen. Bilateral facet arthropath y is seen. Bilateral ligamentum flavum hypertrophy is seen. Moderate spinal canal stenosis is seen. L4-L5: Disc height is within normal limits. Diffuse disc bulge is seen, measuring 5.4 mm indenting on the ventral thecal sac. Bilateral neural foraminal narrowing is seen. Bilateral facet arthropath y is seen. Bilateral ligamentum flavum hypertrophy is seen. Severe spinal canal stenosis is seen. L5-S1: Disc height is within normal limits. Diffuse disc bulge is seen, measuring 4 mm indenting on the ventral thecal sac. Bilateral neural foraminal narrowing is seen. Bilateral facet arthropathy is seen. Bilateral ligamentum flavum hypertrophy is seen. Mild spinal canal stenosis is seen. IMPRESSION: 1. Acute fracture is seen involving the L1 vertebra with mild reduction in height. Chronic compress ion deformity with severe reduction in the height of L5 vertebra is seen. 2. Degenerative changes in the lumbar spine as described above. 3. Additional chronic and/or ancillary findings as detailed above. 4. Suggest clinical correlation and follow-up as clinically deemed necessary. Electronically Signed 03/05/2024 04:18 Inder Layton
--- NOTE | 2024-03-05 08:33 | ECG ---
[facility] Test Date: 2024-03-05 Test Time: 01:52:44 Pat Name: GIANNI SCHWARTZ Department: ER Room: 0245T Gender: M Conference Specialist: KEI : 1945 Requested By: AFRICA RUIZ Order Number: [id number] Reading MD: Nino Castañeda Measurements Intervals [place] Rate: 154 P: 0 SC: 0 QRS: 92 QRSD: 88 T: 45 QT: 311 QTc: 498 Interpretive Statements Atrial fibrillation with rapid V-rate Low voltage, extremity leads ST depression, probably rate related Electronically Signed On 03-05-2024 15:01:15 PDT by Nino Castañeda Please click the below link to view image of tracing.
[2024-03-05] MEDS: ONDANSETRON HCL 4 MG/2 ML VIAL IV ONE (11:34)
[2024-03-05] MEDS: MORPHINE SULFATE INJ 2 MG/ml SYRG IV ONE (11:35)
[2024-03-05] MEDS ORDERED: HYDROcodone-ACET 5/325MG TAB PO PRN (11:45)
[2024-03-05] MEDS ORDERED: MORPHINE SULFATE INJ 2 MG/ml SYRG IV PRN (11:45)
[2024-03-05] MEDS ORDERED: NITROGLYCERIN 0.4 MG SL TAB SL PRN (11:45)
[2024-03-05] MEDS: SODIUM CHLORIDE 0.9% 1,000 ML IV SCH (11:57)
--- NOTE | 2024-03-05 12:14 | DVH ---
Chest x-ray Technique: AP portable REASON FOR EXAM: sob Comparison: 03/25/2022 FINDINGS: Heart size is enlarged. Aorta is tortuous. Volume loss in the right upper lung zone with el evation of the minor fissure There are no infiltrates or effusions. There is prominence of the right hilar shadow. Degenerative changes in the thoracic spine. IMPRESSION: 1. Compared to previous exam minimal change. Volume loss in the right upper lung zone with elevation o f the minor fissure. Right hilar prominence raising question of mass or adenopathy as on previous exa m. Recommend CT chest for further evaluation
--- NOTE | 2024-03-05 12:32 | DVH ---
RENAL ULTRASOUND CLINICAL HISTORY: yasmine TECHNIQUE: Multiple ultrasound images of the kidneys and bladder were obtained. COMPARISON: KIDNEY on DOS: 03/24/22 FINDINGS: The right kidney measures 8.3 cm in length. The left kidney measures 9.4 cm. There is a 2.1 cm minima lly complicated left midpole renal cyst with internal echoes. There is no sonographic evidence of nep hrolithiasis or hydronephrosis. The bladder appears within normal limits. IMPRESSION: 1. 2.1 cm minimally complicated left midpole renal cyst. 2. There is no sonographic evidence of nephrolithiasis or hydronephrosis. HS:Y
[2024-03-05] MEDS ORDERED: DEXTROSE (50%) 50ML SYRG IV PRN (13:00)
--- NOTE | 2024-03-05 13:46 | DVH ---
EXAM: CT CHEST WITHOUT CONTRAST HISTORY: shortness of breath COMPARISON: None TECHNIQUE: Axial images of the chest were obtained and reformatted in coronal and sagittal planes. All CT scans at this medical facility are performed using dose modulation techniques as appropriate t o a performed exam including the following: Automated exposure control was utilized; adjustment of th e MA and/or KV according to patient size; and use of iterative reconstruction technique. CT Dose: CTDI volume is 12.35 mGy. Dose-length product is 458.21 mGy*cm FINDINGS: Limited evaluation due to motion artifact . The thyroid gland is unremarkable. Partially visualized heart is unremarkable. No evidence of aortic aneurysm. Mild dilatation of the pu lmonary trunk up to 35 mm. No significant lymphadenopathy. Trace bilateral pleural effusions tracking along the fissures with associated atelectasis. There appe ars to be loss of volume of the left lobe with hyperinflation and emphysematous changes of the right lung . There scattered bilateral lung atelectasis / scarring. No pneumothorax. 1.9 cm hepatic cyst. There is fullness of the pancreatic head with limited evaluation due to motion a rtifact. Large amount of fecal material within the partially visualized colon. Nonspecific hypodensit ies of the area of the proximal pole vein/ pancreatic head which is not well evaluated given motion a rtifact. Minimal soft tissue edema. Of superior vertebral body height of T2, and T3 with moderate loss of vert ebral body height of T7 of unknown chronicity. Acute/subacute compression fracture of T1. Subacute/c hronic fracture deformity of right posterior rib 10 IMPRESSION: Study is significantly limited by motion artifact. Mild dilatation of the pulmonary trunk up to 35 mm. Correlate for pulmonary arterial hypertension. Trace bilateral pleural effusions tracking along the fissures with scattered bilateral lung atelectas is /scarring, and hyperinflation with emphysematous changes of the right lower. Fullness of the pancreatic head limited evaluation given motion a noncontrast imaging. CT abdomen and pelvis with contrast is recommended for further evaluation. Additional findings as above.
--- NOTE | 2024-03-05 14:01 | DVHINCON2 ---
Date of service: Mar 05, 2024 Referring Physician Reason for Consultation Acute kidney injury History of Present Illness Patient is a 78-year-old male with past medical history of AFIB, COPD status post bilateral lung transplant 2016, DM, High Lipids, HTN, and Liver Disease is admitted with buttock pain status post mechanical fall. On admission patient found to have elevated BUN and creatinine nephrology is consulted for acute kidney injury Past Medical History AFIB, COPD status post bilateral lung transplant 2016, DM, High Lipids, HTN, and Liver Disease Past Surgical History Double lung transplant Allergies: Coded Allergies: No Known Drug Allergy (Verified Allergy, Unknown, 08/25/15) Home Meds Active Scripts Doxycycline (Monohydrate) (Doxycycline) 100 Mg Cap, 100 MG PO BID, #14 CAP Prov:REINALDO KRAUS MD 03/25/22 Albuterol Sulfate (VENTOLIN MDI) 90 Mcg Ih, 2 PUFF IN Q4HPRN PRN, #1 INHALER Prov:REINALDO KRAUS MD 03/25/22 Dexamethasone (Decadron) 6 Mg Tab, 6 MG PO DAILY@BREAKFAST, #8 TAB Prov:REINALDO KRAUS MD 03/25/22 Yeast (S. Boulardii)(S. Cerevi (Florastor) 250 Mg Cap, 250 MG PO DAILY, #7 CAP Prov:CATHERINE VALDES MD 01/03/17 Levofloxacin (Levaquin) 250 Mg Tab, 250 MG PO DAILY, #5 TAB Prov:CATHERINE VALDES MD 01/03/17 Fluconazole (Diflucan) 200 Mg Tab, 1 TAB PO DAILY, #7 TAB Prov:CATHERINE VALDES MD 01/03/17 Reported Medications Oxycodone Hcl (OXYCODONE HCL) 5 Mg Tb, 10 MG PO Q4HPRN PRN for MODERATE PAIN 12/31/16 Tamsulosin Hcl (Tamsulosin Hcl) 0.4 Mg Cap, 0.4 MG PO QPM for 30 Days, MG 12/31/16 Tacrolimus (ASTAGRAF XL) 1 Mg Cap, 3 MG PO BID, CAP 12/31/16 Prednisone (PREDNISONE) 5 Mg Tb, 10 MG PO DAILY 12/31/16 Pantoprazole Sodium (PANTOPRAZOLE SODIUM) 40 Mg Inj, 40 MG PO DAILY, INJ 12/31/16 Mycophenolate Mofetil (Cellcept) 500 Mg Tab, 2 TAB PO BID, #360 TAB 3 Refills 12/31/16 Multiple Vitamin (Multivitamins) Cap, 1 CAP PO DAILY, #30 CAP 3 Refills 12/31/16 Insulin Detemir (Levemir Flextouch) 100 Unit/Ml Inj, 100 UNIT SC HS, INJ 12/31/16 Gabapentin (Gabapentin) 100 Mg Cap, 100 MG PO TID 12/31/16 Finasteride (Finasteride) 5 Mg Tab, 5 MG PO HS for 30 Days, MG 12/31/16 Entecavir Monohydrate (Entecavir) 0.5 Mg Tab, 0.5 MG PO HS, TAB 12/31/16 Enoxaparin Sodium (Enoxaparin Sodium) 30 Mg/0.3 Ml Inj, 30 MG SC HS, INJ 12/31/16 Atorvastatin Calcium (ATORVASTATIN CALCIUM) 20 Mg Tab, 20 MG PO HS, TAB 12/31/16 Current Medications Current Medications Medications (Trade) Dose Ordered Sig/Anish Route PRN Reason Start Time Stop Time Status Last Admin Metoprolol Tartrate (Lopressor) 5 mg Q5M IV 03/05/24 04:15 03/05/24 08:16 DC 03/05/24 04:30 Nitroglycerin (Ntrostat Sublingual) 0.4 mg Q5MINP PRN SL FOR CHEST PAIN 03/05/24 11:45 Morphine Sulfate 2 mg Q30M PRN IV FOR CHEST PAIN 03/05/24 11:45 Ceftriaxone Sodium 50 ml @ 100 mls/hr DAILY@09 IV 03/06/24 09:00 Ondansetron HCl (Zofran) 4 mg Q4HPRN PRN IV NAUSEA / VOMITING 03/05/24 11:45 Morphine Sulfate 2 mg Q4HPRN PRN IV SEVERE PAIN (7-10 PAIN SCALE) 03/05/24 11:45 03/05/24 14:12 Acetaminophen/ Hydrocodone Bitart ([place] 5/325MG Tab) 1 tab Q4HPRN PRN PO MODERATE PAIN (4-6 PAIN SCALE) 03/05/24 11:45 Famotidine (Pepcid Tablet) 10 mg EOD PO 03/06/24 10:00 Cyclobenzaprine HCl (Flexeril Tablet) 5 mg TID PO 03/05/24 14:00 03/05/24 14:11 Methylprednisolone Sodium Succinate (Solu Medrol) 40 mg BID IV 03/05/24 22:00 Sodium Chloride 1,000 ml @ 100 mls/hr Q10H IV 03/05/24 11:45 03/05/24 11:57 Enoxaparin Sodium (Lovenox) 30 mg DAILY SC 03/06/24 10:00 Furosemide (Lasix Injection) 20 mg BIDD IV 03/05/24 18:00 Metoprolol Tartrate (Lopressor Tablet) 12.5 mg BID PO 03/05/24 22:00 Finasteride (Proscar Tablet) 5 mg DAILY PO 03/06/24 10:00 Tamsulosin HCl (Flomax) 0.4 mg QPM PO 03/05/24 18:00 Diagnostic Test (Pha) (Accu-Chek Comfort Curve T) 1 strip ACHS 03/05/24 17:00 Insulin Human Regular (InsuLIN R) ACHS SC 03/05/24 17:00 Dextrose 50 ml UD PRN IV Blood Sugar LESS THAN 60 03/05/24 13:00 Levalbuterol HCl (Xopenex Medneb) 0.625 mg Q6HR NEB 03/05/24 18:00 Albuterol (Ventolin Medneb) 2.5 mg Q6HWA NEB 03/05/24 18:00 Ipratropium [place] (Atrovent Medneb) 0.5 mg Q6HR NEB 03/05/24 18:00 Family History: Cerebrovascular accident (CVA) G8 FATHER Diabetes mellitus G8 MOTHER FHx: cancer G8 MOTHER Review of Systems All 12 item review of systems reviewed with the patient nonsignificant except what is mentioned in the history of present illness H&P Exam Vital Signs/I&O Vital Sign Date Time Temp Pulse Resp B/P (MAP) Pulse Ox O2 Delivery O2 Flow Rate FiO2 03/05/24 14:12 111 20 104/54 03/05/24 11:00 100.2 96 100.2 03/05/24 07:55 Simple Mask* 10 99 Physical Exam Patient is awake with moderate respiratory distress High flow oxygen face mask Lungs bibasilar crackles Cardiac exam is tachycardic GI soft nontender normal Extremity 1+ edema Neuro nonfocal Labs/Diagnostic Data Labs/Diagnostic Data Laboratory Tests Test 10/31/24 12:02 03/05/24 05:52 03/05/24 03:45 03/05/24 02:55 Range/Units Lactic Acid Level 1.7 0.4-2.0 mmol/L Troponin I High Sensitivity 18 12 11 </=54 ng/L White Blood Count 11.1 H 4.4-10.8 10^3/uL Red Blood Count 4.59 4.5-5.90 10^6/uL Hemoglobin 8.7 L 13.5-17.5 g/dL Hematocrit 28.8 L 41.0-53.0 % Mean Corpuscular Volume 62.8 L 80.0-100.0 fL Mean Corpuscular Hemoglobin 19.0 L 28.0-32.0 pg Mean Corpuscular Hemoglobin Concent 30.3 L 32.0-36.0 g/dL Red Cell Distribution Width 19.5 H 11.8-14.3 % Platelet Count 165 140-450 10^3/uL Mean Platelet Volume 8.3 6.9-10.8 fL Neutrophils (%) (Auto) 85.4 H 37.0-80.0 % Lymphocytes (%) (Auto) 9.5 L 10.0-50.0 % Monocytes (%) (Auto) 4.4 0.0-12.0 % Eosinophils (%) (Auto) 0.2 0.0-7.0 % Basophils (%) (Auto) 0.5 0.0-2.0 % Neutrophils # (Auto) 9.4 H 1.6-8.6 10 ^3/uL Lymphocytes # (Auto) 1.1 0.4-5.4 10 ^3/uL Monocytes # (Auto) 0.5 0-1.3 10 ^3/uL Eosinophils # (Auto) 0 0-0.8 10 ^3/uL Basophils # (Auto) 0.1 0-0.2 10 ^3/uL Nucleated Red Blood Cells 0.1 % Platelet Estimate Adequate Hypochromasia (manual) Marked Poikilocytosis (manual) Slight Anisocytosis (manual) Slight Microcytosis Marked Target Cells Few Ovalocytes Few [place] Cells Moderate Schistocytes Few Prothrombin Time 11.3 9.3-11.8 sec Prothrombin Time INR 1.07 0.9-1.15 Activated Partial Thromboplast Time 21.2 L 24.5-34.5 SEC Sodium Level 141 136-145 mmol/L Potassium Level 3.9 3.5-5.1 mmol/L Chloride Level 109 H 98-107 mmol/L Carbon Dioxide Level 20 20-31 mmol/L Anion Gap 12 5-15 Blood Urea Nitrogen 36 H 9-23 mg/dL Creatinine 2.87 H 0.700-1.30 mg/dL Glomerular Filtration Rate Calc 22 >90 mL/min BUN/Creatinine Ratio 12.5 10.0-20.0 Serum Glucose 103 74-106 mg/dL Calcium Level 9.0 8.7-10.4 mg/dL Total Bilirubin 0.4 0.2-1.0 mg/dL Aspartate Amino Transferase (AST) 21 13-40 U/L Alanine Aminotransferase (ALT) 22 7-40 U/L Alkaline Phosphatase 51 46-116 U/L B-Type Natriuretic Peptide 71.78 0-100 pg/mL Total Protein 6.7 5.7-8.2 g/dL Albumin 4.2 3.2-4.8 g/dL Assessment Acute kidney injury superimposed Chronic Kidney Disease secondary hemodynamic mediated Acute on chronic respiratory failure, on high flow oxygen AFib with RVR L1 fracture status post fall Microcytic anemia rule out GI bleeding Double lung transplant on immunosuppression 2.1 cm complex left kidney cyst Pneumonia rule out opportunistic infection Sepsis Recommendations Closely monitor fluid and electrolytes Avoid nephrotoxic medications Negrete catheter Strict I&Os Check urine electrolytes and urine protein excretion Check tacrolimus level Kidney ultrasound reported complex 2.1 cm left mid pole cyst Pulmonary consult ID consult Orthopedic consult Urology consult Check stool occult blood Check ferritin, iron study We will continue to follow Patient seen and examined by myself. I discussed my plan of care with the patient and primary nurse at the bedside I would like to thank for the consult, will follow up Plan discussed with: Patient SUDEEP GUILLEN MD Mar 05, 2024 14:01
[2024-03-05] MEDS: CYCLOBENZAPRINE HCL 10 MG TAB PO SCH (14:11)
[2024-03-05] MEDS: MORPHINE SULFATE INJ 2 MG/ml SYRG IV PRN (14:12)
--- NOTE | 2024-03-05 14:57 | DVHHP2 ---
History of Present Illness Reason for Visit: Fall with low back pain History of Present Illness 78 y/o M, with a Hx of AFIB, COPD w/home O2, DM, HLD, HTN, liver disease, bilateral lung transplant, and former tobacco use, is BIBA for c/o buttock pain s/p mechanical fall and injury, today. Per EMS report, patient fell from ground- level and landed on his buttocks in his bathtub, while trying to get out, this morning. Patient endorses on no head or additional injuries along with LOC. Patient states pain being an 8/10 and non-radiating. On scene, patient was found in AFIB RVR and a blood glucose of 93, with all remaining vitals within normal limits. En route, patient was given 2.5L NS bolus. Patient denies having any prior symptoms to fall in addition to any current weakness, numbness, tingling sensation, chest pain, shortness of breath, or other associated symptoms or modifiers at this time. In the ER patient noted to be short of breath with respiratory distress. He is on 6 L OxyMask. At home he uses 3 L oxygen via nasal cannula. Given his respiratory distress with a lumbar vertebra L1 fracture he is being admitted to the hospital for further evaluation and management. Past Medical History AFIB, COPD (w/home O2), DM, High Lipids, HTN, status post right lung transplant, osteoporosis, chronic vertebral fracture Past Surgical History lung transplant in 2016 Family History: Hypertension Smoke: No ALCOHOL: rare Lives: with Family Review of Systems Review of Systems No chest pain. No cough or productive sputum. No fevers chills or sweats. Other review of systems reviewed normal Allergies: Coded Allergies: No Known Drug Allergy (Verified Allergy, Unknown, 08/25/15) Medications Current Medications Medications Dose Ordered Sig/Anish Route Start Time Stop Time Status Last Admin Dose Admin Nitroglycerin 0.4 mg Q5MINP PRN SL 03/05/24 11:45 Morphine Sulfate 2 mg Q30M PRN IV 03/05/24 11:45 Ceftriaxone Sodium 50 ml @ 100 mls/hr DAILY@09 IV 03/06/24 09:00 Ondansetron HCl 4 mg Q4HPRN PRN IV 03/05/24 11:45 Morphine Sulfate 2 mg Q4HPRN PRN IV 03/05/24 11:45 03/05/24 14:12 2 MG Acetaminophen/ Hydrocodone Bitart 1 tab Q4HPRN PRN PO 03/05/24 11:45 Famotidine 10 mg EOD PO 03/06/24 10:00 Cyclobenzaprine HCl 5 mg TID PO 03/05/24 14:00 03/05/24 14:11 5 MG Methylprednisolone Sodium Succinate 40 mg BID IV 03/05/24 22:00 Sodium Chloride 1,000 ml @ 100 mls/hr Q10H IV 03/05/24 11:45 03/05/24 11:57 100 MLS/HR Enoxaparin Sodium 30 mg DAILY SC 03/06/24 10:00 Furosemide 20 mg BIDD IV 03/05/24 18:00 Metoprolol Tartrate 12.5 mg BID PO 03/05/24 22:00 Finasteride 5 mg DAILY PO 03/06/24 10:00 Tamsulosin HCl 0.4 mg QPM PO 03/05/24 18:00 Diagnostic Test (Pha) 1 strip ACHS 03/05/24 17:00 Insulin Human Regular ACHS SC 03/05/24 17:00 Dextrose 50 ml UD PRN IV 03/05/24 13:00 Levalbuterol HCl 0.625 mg Q6HR NEB 03/05/24 18:00 Albuterol 2.5 mg Q6HWA [facility] 03/05/24 18:00 Ipratropium [place] 0.5 mg Q6HR NEB 03/05/24 18:00 Exam Vital Signs Vital Signs Date Time Temp Pulse Resp B/P (MAP) Pulse Ox O2 Delivery O2 Flow Rate FiO2 03/05/24 14:12 111 20 104/54 03/05/24 11:00 100.2 96 100.2 03/05/24 07:55 Simple Mask* 10 99 Exam Elderly gentleman appears frail in mild respiratory distress. Family is at bedside. HEENT neck supple no JVD. Poor dentition. Heart mild tachycardia S1 plus S2 without murmurs. Lungs fair air movement without any audible rales or wheezing. Chest tube will expansion. Abdomen is soft nontender positive bowel sounds. Extremities trace edema around the ankles. Positive distal pedal pulses. Labs/Xrays Labs Test 03/05/24 12:02 03/05/24 05:52 03/05/24 02:55 Range/Units Lactic Acid Level 1.7 0.4-2.0 mmol/L Troponin I High Sensitivity 18 </=54 ng/L White Blood Count 11.1 H 4.4-10.8 10^3/uL Red Blood Count 4.59 4.5-5.90 10^6/uL Hemoglobin 8.7 L 13.5-17.5 g/dL Hematocrit 28.8 L 41.0-53.0 % Mean Corpuscular Volume 62.8 L 80.0-100.0 fL Mean Corpuscular Hemoglobin 19.0 L 28.0-32.0 pg Mean Corpuscular Hemoglobin Concent 30.3 L 32.0-36.0 g/dL Red Cell Distribution Width 19.5 H 11.8-14.3 % Platelet Count 165 140-450 10^3/uL Mean Platelet Volume 8.3 6.9-10.8 fL Neutrophils (%) (Auto) 85.4 H 37.0-80.0 % Lymphocytes (%) (Auto) 9.5 L 10.0-50.0 % Monocytes (%) (Auto) 4.4 0.0-12.0 % Eosinophils (%) (Auto) 0.2 0.0-7.0 % Basophils (%) (Auto) 0.5 0.0-2.0 % Neutrophils # (Auto) 9.4 H 1.6-8.6 10 ^3/uL Lymphocytes # (Auto) 1.1 0.4-5.4 10 ^3/uL Monocytes # (Auto) 0.5 0-1.3 10 ^3/uL Eosinophils # (Auto) 0 0-0.8 10 ^3/uL Basophils # (Auto) 0.1 0-0.2 10 ^3/uL Nucleated Red Blood Cells 0.1 % Platelet Estimate Adequate Hypochromasia (manual) Marked Poikilocytosis (manual) Slight Anisocytosis (manual) Slight Microcytosis Marked Target Cells Few Ovalocytes Few [place] Cells Moderate Schistocytes Few Prothrombin Time 11.3 9.3-11.8 sec Prothrombin Time INR 1.07 0.9-1.15 Activated Partial Thromboplast Time 21.2 L 24.5-34.5 SEC Sodium Level 141 136-145 mmol/L Potassium Level 3.9 3.5-5.1 mmol/L Chloride Level 109 H 98-107 mmol/L Carbon Dioxide Level 20 20-31 mmol/L Anion Gap 12 5-15 Blood Urea Nitrogen 36 H 9-23 mg/dL Creatinine 2.87 H 0.700-1.30 mg/dL Glomerular Filtration Rate Calc 22 >90 mL/min BUN/Creatinine Ratio 12.5 10.0-20.0 Serum Glucose 103 74-106 mg/dL Calcium Level 9.0 8.7-10.4 mg/dL Total Bilirubin 0.4 0.2-1.0 mg/dL Aspartate Amino Transferase (AST) 21 13-40 U/L Alanine Aminotransferase (ALT) 22 7-40 U/L Alkaline Phosphatase 51 46-116 U/L B-Type Natriuretic Peptide 71.78 0-100 pg/mL Total Protein 6.7 5.7-8.2 g/dL Albumin 4.2 3.2-4.8 g/dL Assessment/Plan Assessment/Plan We will admit him to hospital. Given that his lung transplant we will get the Pulmonary consultation. Start him on his immunosuppressive medications. Check tacrolimus levels. We will obtain Nephrology consultation for renal failure. He will be started on IV diuretics for shortness of breath. We will get a 2D echocardiogram. Put him on empiric antibiotics steroids and breathing treatments. For lumbar vertebral fracture we will start him on muscle relaxant and pain medications as needed. Physical therapy evaluation. Otherwise continue rest of supportive care and treatment and medications as he is on at h ome. Further clinical management per clinical course and recommendations from the consultants. At present his condition remains guarded. Discussed with the patient and daughter at bedside along with the nurse at bedside regarding care plan Plan discussed with: Patient, Daughter My Orders Orders - HERRERA ENRIQUEZ MD Procedure Category Date Status Time Echo 2d Mode Cardiac US 03/05/24 Logged DOP 11:32 Cardiac DIET 03/05/24 Transmitted Diet-2gna,Lofat,Lochol Lunch *[facility]. [facility] CONS 03/05/24 Transmitted -[place] 11:32 Nitroglycerin PHA 03/05/24 In Process Sublingual (Ntrostat 11:45 Morphine Sulfate PHA 03/05/24 In Process Injection 11:45 Stat Ekg For Chest CHARBEL 03/05/24 In Process Pain 11:32 Notify Of Changes CHARBEL 03/05/24 In Process From Base 11:32 Pony Rougher For CHARBEL 03/05/24 In Process 24 Hours 11:32 Emergency Dysrhythmia CHARBEL 03/05/24 In Process Protocol 11:32 Rhythm Strips Once CHARBEL 03/05/24 In Process Every Shift 11:32 Oxygen By Nasal RT 03/05/24 Transmitted Cannula 11:32 Urinalysis LAB 03/05/24 Logged 11:32 Urine Bacterial JAC 03/05/24 Logged Culture 11:32 Kidney US 03/05/24 Resulted 11:32 Pt Request For Service PT 03/05/24 Logged 11:32 * Orthopedic Consult CONS 03/05/24 Transmitted 11:32 Blood Culture JAC 03/05/24 In Process 11:32 Lactic Acid W/ Reflex LAB 03/06/24 Verified Order 04:00 Ceftriaxone 1gm/50ml PHA 03/06/24 In Process D5w (Rocephin) 09:00 Ondansetron Hcl PHA 03/05/24 In Process (Zofran) 11:45 Morphine Sulfate PHA 03/05/24 In Process Injection 11:45 Hydrocodone-Acet PHA 03/05/24 In Process 5/325mg Tab ([place] 11:45 Famotidine Tablet PHA 03/06/24 In Process (Pepcid Tablet) 10:00 Cyclobenzaprine PHA 03/05/24 In Process Tablet (Flexeril 14:00 Methylprednisolone PHA 03/05/24 In Process Sod Succ (Solu Medrol 22:00 Sodium Chloride 0.9% PHA 03/05/24 In Process 11:45 Complete Blood Count LAB 03/06/24 Verified 04:00 Basic Metabolic Panel LAB 03/06/24 Verified 05:00 Basic Metabolic Panel LAB 03/07/24 Verified 05:00 Basic Metabolic Panel LAB 03/08/24 Verified 05:00 Basic Metabolic Panel LAB 03/09/24 Verified 05:00 Basic Metabolic Panel LAB 03/10/24 Verified 05:00 Enoxaparin Sodium PHA 03/06/24 In Process (Lovenox) 10:00 Chest Portable XY 03/05/24 Resulted 11:39 Insert/Manage Urinary CHARBEL 03/05/24 In Process Catheter 12:45 *Consult CONS 03/05/24 Transmitted / 12:45 * Cardiology Consult CONS 03/05/24 Transmitted 12:[address] 03/05/24 Resulted 12:51 Furosemide Injection PHA 03/05/24 In Process (Lasix Injection) 18:00 Communication Order ORDERS 03/05/24 Transmitted 12:53 Metoprolol Tartrate PHA 03/05/24 In Process Tablet (Lopressor Ta 22:00 Finasteride Tablet PHA 03/06/24 In Process (Proscar Tablet) 10:00 Tamsulosin PHA 03/05/24 In Process Hydrochloride (Flomax) 18:00 Glucose Blood PHA 03/05/24 In Process (Accu-Chek Comfort 17:00 Insulin R (Human) PHA 03/05/24 In Process (Insulin R) 17:00 Dextrose 50% Syringe PHA 03/05/24 In Process 13:00 Levalbuterol Hcl PHA 03/05/24 In Process (Xopenex Medneb) 18:00 Albuterol Medneb PHA 03/05/24 In Process (Ventolin Medneb) 18:00 Ipratropium Medneb PHA 03/05/24 In Process (Atrovent Medneb) 18:00 Parathyroid Hormone LAB 03/05/24 In Process Intact 14:[address] Rainer CONS 03/05/24 Transmitted [place](Spine) 14:54 Admit ADMIT 03/05/24 Transmitted 14:54 Oxygen By Nasal RT 03/05/24 Transmitted Cannula 14:54 Problem List: (1) Atrial fibrillation (2) L1 vertebral fracture (3) Diabetes mellitus (4) Fall HERRERA ENRIQUEZ MD Mar 05, 2024 14:57
[2024-03-05 15:41] LABS: Phosphorus 4.4 mg/dL (2.4-5.1)
[2024-03-05 15:50] LABS: % Iron Saturation 6.8 % (20-55)
[2024-03-05 16:17] LABS: Urine Bacteria FEW /hpf (None Seen); Urine Blood 1+ /uL (Negative); Urine Clarity Clear (Clear); Urine Color Light-Yellow (Yellow); Urine Protein, UAD 1+ (Negative); Urine Specific Gravity 1.018 (1.001-1.035); Urine Urobilinogen Normal (Negative); Urine WBC 1 /hpf (0 - 3); Urine pH 5.5 (5.0-9.0)
[2024-03-05 16:23] LABS: Sodium Urine 101 mmol/L (40-220)
[2024-03-05 16:28] LABS: Protein, Urine 62.3 mg/dL (1-14)
[2024-03-05 16:30] LABS: Amphetamine Screen, Urine Neg (NEGATIVE); Barbiturate Scree,Urine Neg (NEGATIVE); Benzodiazephine Screen, Urine Neg (NEGATIVE); Cocaine Screen, Urine Neg (NEGATIVE); Opiate Scree,Urine Neg (NEGATIVE)
[2024-03-05 16:31] LABS: Cannabinoid Screen, Urine Pos (NEGATIVE); Creatinine, Urine 113.12 mg/dL (30.0-125.0); Phencyclidine Screen, Urine Neg (NEGATIVE); Urine Protein/Creatinine Ratio 0.55
[2024-03-05 16:41] LABS: Rapid Influenza A Negative (Negative); Rapid Influenza B Negative (Negative)
[2024-03-05 16:48] LABS: COVID19 ANTIGEN SOFIA FIA NEGATIVE (NEGATIVE)
--- NOTE | 2024-03-05 17:12 | DVHINCON2 ---
Date of service: Mar 05, [address] Briceno Reason for Consultation Possible pulmonary hypertension, pleural effusions, Emphysema History of Present Illness 78-year-old man history of atrial fibrillation, COPD, chronic hypoxic respiratory failure, dependence on supplemental oxygen, diabetes mellitus type 2, hyperlipidemia, hypertension, liver disease, bilateral lung transplant, former smoker brought in by ambulance with a chief complaint of buttock pain status post mechanical fall and injury. He had a ground level fall and landed on his buttocks in his bathtub we will try to get out. He denies any loss of consciousness. He was found to be in atrial fibrillation with RVR. He had a blood glucose of 93. Pulmonary consultation is called for evaluation of COPD and possible pulmonary hypertension. Review of systems: 14 point review of systems is negative unless otherwise noted above. Past medical history: atrial fibrillation, COPD, chronic hypoxic respiratory failure, dependence on supplemental oxygen, diabetes mellitus type 2, hyperlipidemia, hypertension, liver disease, bilateral lung transplant, former smoker Past Surgical history: Bilateral lung transplant in 2016 Medications: Reviewed Allergies: No known drug allergies. Family history: Family history of cancer. No family history of premature CAD. No family history of lung disease. Social history: Ex-smoker. Quit more than one year ago. Denies any alcohol or illicit drug use. Lives at home. Family History: Cerebrovascular accident (CVA) G8 FATHER Diabetes mellitus G8 MOTHER FHx: cancer G8 MOTHER Allergies: Coded Allergies: No Known Drug Allergy (Verified Allergy, Unknown, 08/25/15) Home Meds Active Scripts Hydrocodone-Acetaminophen (Hydrocodone Bitartrate/AC 5-325 mg) 1 Tab Tab, 1 TAB PO Q8HPRN PRN, #14 TAB Prov:HERRERA ENRIQUEZ MD 03/09/24 Calcium Citrate-Vitamin D (Calcitrate Plus D 315-200 mg-Unit) 1 Tab Tab, 1 TAB PO BID, #90 TAB Prov:HERRERA ENRIQUEZ MD 03/09/24 Cyclobenzaprine Hcl (Cyclobenzaprine Hcl) 5 Mg Tab, 1 TAB PO TID, #30 TAB Prov:HERRERA ENRIQUEZ MD 03/09/24 Albuterol Sulfate (VENTOLIN MDI) 90 Mcg Ih, 2 PUFF IN Q4HPRN PRN, #1 INHALER Prov:REINALDO KRAUS MD 03/25/22 Reported Medications Oxycodone Hcl (OXYCODONE HCL) 5 Mg Tb, 10 MG PO Q4HPRN PRN for MODERATE PAIN 12/31/16 Tamsulosin Hcl (Tamsulosin Hcl) 0.4 Mg Cap, 0.4 MG PO QPM for 30 Days, MG 12/31/16 Tacrolimus (ASTAGRAF XL) 1 Mg Cap, 3 MG PO BID, CAP 12/31/16 Prednisone (PREDNISONE) 5 Mg Tb, 10 MG PO DAILY 12/31/16 Pantoprazole Sodium (PANTOPRAZOLE SODIUM) 40 Mg Inj, 40 MG PO DAILY, INJ 12/31/16 Mycophenolate Mofetil (Cellcept) 500 Mg Tab, 2 TAB PO BID, #360 TAB 3 Refills 12/31/16 Multiple Vitamin (Multivitamins) Cap, 1 CAP PO DAILY, #30 CAP 3 Refills 12/31/16 Insulin Detemir (Levemir Flextouch) 100 Unit/Ml Inj, 100 UNIT SC HS, INJ 12/31/16 Gabapentin (Gabapentin) 100 Mg Cap, 100 MG PO TID 12/31/16 Finasteride (Finasteride) 5 Mg Tab, 5 MG PO HS for 30 Days, MG 12/31/16 Entecavir Monohydrate (Entecavir) 0.5 Mg Tab, 0.5 MG PO HS, TAB 12/31/16 Atorvastatin Calcium (ATORVASTATIN CALCIUM) 20 Mg Tab, 20 MG PO HS, TAB 12/31/16 Discontinued Reported Medications Enoxaparin Sodium (Enoxaparin Sodium) 30 Mg/0.3 Ml Inj, 30 MG SC HS, INJ 12/31/16 Discontinued Scripts Doxycycline (Monohydrate) (Doxycycline) 100 Mg Cap, 100 MG PO BID, #14 CAP Prov:REINALDO KRAUS MD 03/25/22 Dexamethasone (Decadron) 6 Mg Tab, 6 MG PO DAILY@BREAKFAST, #8 TAB Prov:REINALDO KRAUS MD 03/25/22 Yeast (S. Boulardii)(S. Cerevi (Florastor) 250 Mg Cap, 250 MG PO DAILY, #7 CAP Prov:CATHERINE VALDES MD 01/03/17 Levofloxacin (Levaquin) 250 Mg Tab, 250 MG PO DAILY, #5 TAB Prov:CATHERINE VALDES MD 01/03/17 Fluconazole (Diflucan) 200 Mg Tab, 1 TAB PO DAILY, #7 TAB Prov:CATHERINE VALDES MD 01/03/17 Current Medications Current Medications Medications (Trade) Dose Ordered Sig/Anish Route PRN Reason Start Time Stop Time Status Last Admin Metoprolol Tartrate (Lopressor) 5 mg Q5M IV 03/05/24 04:15 03/05/24 08:16 DC 03/05/24 04:30 Nitroglycerin (Ntrostat Sublingual) 0.4 mg Q5MINP PRN SL FOR CHEST PAIN 03/05/24 11:45 Morphine Sulfate 2 mg Q30M PRN IV FOR CHEST PAIN 03/05/24 11:45 Ceftriaxone Sodium 50 ml @ 100 mls/hr DAILY@09 IV 03/06/24 09:00 Ondansetron HCl (Zofran) 4 mg Q4HPRN PRN IV NAUSEA / VOMITING 03/05/24 11:45 Morphine Sulfate 2 mg Q4HPRN PRN IV SEVERE PAIN (7-10 PAIN SCALE) 03/05/24 11:45 03/05/24 14:12 Acetaminophen/ Hydrocodone Bitart ([place] 5/325MG Tab) 1 tab Q4HPRN PRN PO MODERATE PAIN (4-6 PAIN SCALE) 03/05/24 11:45 Famotidine (Pepcid Tablet) 10 mg EOD PO 03/06/24 10:00 Cyclobenzaprine HCl (Flexeril Tablet) 5 mg TID PO 03/05/24 14:00 03/05/24 14:11 Methylprednisolone Sodium Succinate (Solu Medrol) 40 mg BID IV 03/05/24 22:00 Sodium Chloride 1,000 ml @ 100 mls/hr Q10H IV 03/05/24 11:45 03/05/24 11:57 Enoxaparin Sodium (Lovenox) 30 mg DAILY SC 03/06/24 10:00 Furosemide (Lasix Injection) 20 mg BIDD IV 03/05/24 18:00 Metoprolol Tartrate (Lopressor Tablet) 12.5 mg BID PO 03/05/24 22:00 Finasteride (Proscar Tablet) 5 mg DAILY PO 03/06/24 10:00 Tamsulosin HCl (Flomax) 0.4 mg QPM PO 03/05/24 18:00 Diagnostic Test (Pha) (Accu-Chek Comfort Curve T) 1 strip ACHS 03/05/24 17:00 Insulin Human Regular (InsuLIN R) ACHS SC 03/05/24 17:00 Dextrose 50 ml UD PRN IV Blood Sugar LESS THAN 60 03/05/24 13:00 Levalbuterol HCl (Xopenex Medneb) 0.625 mg Q6HR NEB 03/05/24 18:00 Albuterol (Ventolin Medneb) 2.5 mg Q6HWA NEB 03/05/24 18:00 Ipratropium [place] (Atrovent Medneb) 0.5 mg Q6HR NEB 03/05/24 18:00 Vital Signs Vital Signs Date Time Temp Pulse Resp B/P (MAP) Pulse Ox O2 Delivery O2 Flow Rate FiO2 03/05/24 15:18 99.1 111 20 104/54 95 4.0 41 99.1 03/05/24 13:22 Nasal Cannula* Physical Exam Gen.: Patient lying in bed in no apparent distress. On supplemental oxygen. Head: Normocephalic, atraumatic Eyes: EOMI/PERRLA. Ears: Normal hearing. Normal anatomy. Neck/trachea: Trachea midline, supple. Nose: Normal external anatomy. Mouth: Moist mucous membranes. Chest: Fair air entry bilaterally. Wheezing present. No rhonchi. Cardio vascular: Positive S1, positive S2. Regular rate and rhythm. Abdomen: Positive bowel sounds in all 4 quadrants. Soft, non-tender, non- distended. : Deferred. Rectal: Deferred Skin: Warm, dry. Extremities: 2+ radial pulses bilaterally. No lower extremity edema. Neuro: Awake, alert, oriented x3. No gross motor or sensory deficits. Cranial nerves II through XII intact. Gait not assessed. Labs/Diagnostic Data Labs Test 03/05/24 15:50 03/05/24 15:05 03/05/24 12:02 03/05/24 05:52 Range/Units Urine Color Light-yellow Yellow Urine Clarity Clear Clear Urine pH 5.5 5.0-9.0 Urine Specific White 1.018 1.001-1.035 Urine Protein 1+ H Negative Urine Ketones Negative Negative Urine Blood 1+ H Negative /uL Urine Nitrite Negative Negative Urine Bilirubin Negative Negative Urine Urobilinogen Normal Negative mg/dL Urine Leukocyte Esterase Negative Negative /uL Urine RBC 1 0 - 3 /hpf Urine WBC 1 0 - 3 /hpf Urine Squamous Epithelial Cells None seen <5 /hpf Urine Bacteria Few H None Seen /hpf Urine Creatinine 113.12 30.0-125.0 mg/dL Urine Protein/Creatinine Ratio 0.55 Urine Sodium 101 40-220 mmol/L Urine Glucose 1+ H Normal mg/dL Urine Total Protein 62.3 H 1-14 mg/dL Urine Opiates Screen Neg NEGATIVE Urine Fentanyl Screen Neg NEGATIVE Urine Barbiturates Screen Neg NEGATIVE Urine Phencyclidine Screen Neg NEGATIVE Urine Amphetamines Screen Neg NEGATIVE Urine Benzodiazepines Screen Neg NEGATIVE Urine Cocaine Screen Neg NEGATIVE Urine Cannabinoids Screen Pos NEGATIVE Influenza Type A Antigen Negative Negative Influenza Type B Antigen Negative Negative SARS-CoV-2 Antigen (Rapid) Negative NEGATIVE Phosphorus Level 4.4 2.4-5.1 mg/dL Magnesium Level 2.0 1.6-2.6 mg/dL Iron Level 15 L 65-175 ug/dL Total Iron Binding Capacity 220 L 250-425 ug/dL Percent Iron Saturation 6.8 L 20-55 % Ferritin 995.4 H 22-322 ng/mL Vitamin D 25-Hydroxy 92.1 30.0-100 ng/mL Lactic Acid Level 1.7 0.4-2.0 mmol/L Troponin I High Sensitivity 18 </=54 ng/L Test 03/05/24 02:55 Range/Units White Blood Count 11.1 H 4.4-10.8 10^3/uL Red Blood Count 4.59 4.5-5.90 10^6/uL Hemoglobin 8.7 L 13.5-17.5 g/dL Hematocrit 28.8 L 41.0-53.0 % Mean Corpuscular Volume 62.8 L 80.0-100.0 fL Mean Corpuscular Hemoglobin 19.0 L 28.0-32.0 pg Mean Corpuscular Hemoglobin Concent 30.3 L 32.0-36.0 g/dL Red Cell Distribution Width 19.5 H 11.8-14.3 % Platelet Count 165 140-450 10^3/uL Mean Platelet Volume 8.3 6.9-10.8 fL Neutrophils (%) (Auto) 85.4 H 37.0-80.0 % Lymphocytes (%) (Auto) 9.5 L 10.0-50.0 % Monocytes (%) (Auto) 4.4 0.0-12.0 % Eosinophils (%) (Auto) 0.2 0.0-7.0 % Basophils (%) (Auto) 0.5 0.0-2.0 % Neutrophils # (Auto) 9.4 H 1.6-8.6 10 ^3/uL Lymphocytes # (Auto) 1.1 0.4-5.4 10 ^3/uL Monocytes # (Auto) 0.5 0-1.3 10 ^3/uL Eosinophils # (Auto) 0 0-0.8 10 ^3/uL Basophils # (Auto) 0.1 0-0.2 10 ^3/uL Nucleated Red Blood Cells 0.1 % Platelet Estimate Adequate Hypochromasia (manual) Marked Poikilocytosis (manual) Slight Anisocytosis (manual) Slight Microcytosis Marked Target Cells Few Ovalocytes Few Dona Cells Moderate Schistocytes Few Prothrombin Time 11.3 9.3-11.8 sec Prothrombin Time INR 1.07 0.9-1.15 Activated Partial Thromboplast Time 21.2 L 24.5-34.5 SEC Sodium Level 141 136-145 mmol/L Potassium Level 3.9 3.5-5.1 mmol/L Chloride Level 109 H 98-107 mmol/L Carbon Dioxide Level 20 20-31 mmol/L Anion Gap 12 5-15 Blood Urea Nitrogen 36 H 9-23 mg/dL Creatinine 2.87 H 0.700-1.30 mg/dL Glomerular Filtration Rate Calc 22 >90 mL/min BUN/Creatinine Ratio 12.5 10.0-20.0 Serum Glucose 103 74-106 mg/dL Calcium Level 9.0 8.7-10.4 mg/dL Total Bilirubin 0.4 0.2-1.0 mg/dL Aspartate Amino Transferase (AST) 21 13-40 U/L Alanine Aminotransferase (ALT) 22 7-40 U/L Alkaline Phosphatase 51 46-116 U/L B-Type Natriuretic Peptide 71.78 0-100 pg/mL Total Protein 6.7 5.7-8.2 g/dL Albumin 4.2 3.2-4.8 g/dL Parathyroid Hormone (Intact) 82.5 H 18.4-80.1 pg/mL Assessment Impression: Acute on chronic hypoxic respiratory failure secondary to acute exacerbation of COPD and atrial fibrillation with RVR COPD exacerbation Pleural effusion Atelectasis Emphysema Possible pulmonary hypertension Atrial fibrillation with RVR L1 vertebral fracture L5 vertebral fracture Hepatic cysts Plan: CT chest report and images reviewed. Mild dilatation of pulmonary trunk at 35 mm. Follow up echocardiogram report to assess right ventricular systolic pressu re for pulmonary hypertension. Trace bilateral pleural effusions tracking along the fissures with scattered bilateral lung atelectasis/scarring. Hyperinflation with emphysematous changes in the right lower lobe. Supplemental oxygen On 4 liters/minute via nasal cannula. Keep O2 saturation above 92%. Incentive spirometry Continue antibiotics Follow up cultures Bronchodilators IV steroids Taper as tolerated Diuresis euvolemia Monitor ins and outs. Monitor renal function. Monitor electrolytes. Supplement as necessary. GI prophylaxis-Pepcid DVT prophylaxis-Lovenox Condition: Critical Prognosis: Poor given multiple comorbidities. Rest of plan per hospitalist and other consultants. A total of 36 minutes of critical care time was spent reviewing the patient record, examining the patient, making a diagnostic and therapeutic plan, discussing this plan with the medical personnel, following up on diagnostic studies and following the patient for clinical stability excluding any and all procedures. At least 50% of this time was spent in direct, [id number] contact. Thank you Dr. Briceno for allowing me to participate in this patient's care. Further recommendations will depend on patient's clinical course. Please do not hesitate to contact me if you have any questions or concerns. This medical document was created using an electronic medical record system with [employer] dictation system. Although this document has been carefully reviewed, there may still be some phonetic and typographical errors. These areas are purely typographical due to imperfections of the software programs, an d do not reflect any compromise in the patient's medical care. Plan discussed with: Patient, Other (REY Rosenthal MD) LIOR ALVAREZ MD Mar 05, 2024 17:12
[2024-03-05] MEDS: ACCU-CHEK COMFORT CURVE STRIP VI SCH (17:20)
[2024-03-05] MEDS: InsuLIN REG 1unit/0.01ml Soln (100units/ml) SC SCH (17:22)
[2024-03-05] MEDS ORDERED: ALBUTEROL SULF 2.5 MG/0.5ML(0.5%) NEB SOLN NEB SCH (18:00)
[2024-03-05 18:13] LABS: Alanine Aminotransferase 25 U/L (7-40); Albumin 4.3 g/dL (3.2-4.8); Alkaline Phosphatase 52 U/L (46-116); Anion Gap 9 (5-15); Aspartate Aminotransferase 49 U/L (13-40); BUN/Creatinine Ratio 13.1 (10.0-20.0); Bilirubin, Total 0.6 mg/dL (0.2-1.0); Blood Urea Nitrogen 36 mg/dL (9-23); Carbon Dioxide 23 mmol/L (20-31); Chloride 107 mmol/L (98-107); Glucose 183 mg/dL (74-106); Potassium 4.9 mmol/L (3.5-5.1); Sodium 139 mmol/L (136-145); Total Protein 6.8 g/dL (5.7-8.2)
[2024-03-05] MEDS: FUROSEMIDE 20 MG/2 ML VIAL IV SCH (18:14)
[2024-03-05] MEDS: TAMSULOSIN HYDROCHLORIDE 0.4 MG CAP PO SCH (18:15)
[2024-03-05] MEDS: ACETAMINOPHEN 325 MG TAB PO PRN (18:32)
[2024-03-05] MEDS: DIGOXIN (250MCG/ML) 2 ML AMPULE IV ONE (18:33)
[2024-03-05] MEDS: METOPROLOL TARTRATE 25 MG TAB PO SCH (18:33)
--- NOTE | 2024-03-05 18:39 | DVHINCON2 ---
Date Seen: Mar 05, [address] Fitzgerald Reason for Consultation Shortness of breath. Atrial fibrillation. Rapid ventricular response. History of Present Illness 78-year-old gentleman with a history of dysrhythmias in associated COPD. Multiple medical problems. Developed progressive symptoms of shortness of breath and was brought for further evaluation and treatment. Patient has a history of a mechanical fall with injury. He fell to the floor and landed on his buttocks in his bathtub. Given his symptomatology cardiac evaluation was requested. He is normally on 2 L of nasal cannula but now he is on 10 L with rapid AFib. He states he progressively became more short of breath. As previously mentioned he has a history of COPD. Prostatic enlargement. Neuropathy. He is a diabetic. He has a history of lung transplantation. He is on three immunosuppressants. Past Medical History History of COPD. Lung transplant. Hyperlipidemia. Diabetes. Hypertension. Previous pulmonary infections. Chronic kidney disease. Past Surgical History Lung transplant. Family History: Cerebrovascular accident (CVA) G8 FATHER Diabetes mellitus G8 MOTHER FHx: cancer G8 MOTHER Allergies: Coded Allergies: No Known Drug Allergy (Verified Allergy, Unknown, 08/25/15) Home Meds Active Scripts Doxycycline (Monohydrate) (Doxycycline) 100 Mg Cap, 100 MG PO BID, #14 CAP Prov:REINALDO KRAUS MD 03/25/22 Albuterol Sulfate (VENTOLIN MDI) 90 Mcg Ih, 2 PUFF IN Q4HPRN PRN, #1 INHALER Prov:REINALDO KRAUS MD 03/25/22 Dexamethasone (Decadron) 6 Mg Tab, 6 MG PO DAILY@BREAKFAST, #8 TAB Prov:REINALDO KRAUS MD 03/25/22 Yeast (S. Boulardii)(S. Cerevi (Florastor) 250 Mg Cap, 250 MG PO DAILY, #7 CAP Prov:CATHERINE VALDES MD 01/03/17 Levofloxacin (Levaquin) 250 Mg Tab, 250 MG PO DAILY, #5 TAB Prov:CATHERINE VALDES MD 01/03/17 Fluconazole (Diflucan) 200 Mg Tab, 1 TAB PO DAILY, #7 TAB Prov:CATHERINE VALDES MD 01/03/17 Reported Medications Oxycodone Hcl (OXYCODONE HCL) 5 Mg Tb, 10 MG PO Q4HPRN PRN for MODERATE PAIN 12/31/16 Tamsulosin Hcl (Tamsulosin Hcl) 0.4 Mg Cap, 0.4 MG PO QPM for 30 Days, MG 12/31/16 Tacrolimus (ASTAGRAF XL) 1 Mg Cap, 3 MG PO BID, CAP 12/31/16 Prednisone (PREDNISONE) 5 Mg Tb, 10 MG PO DAILY 12/31/16 Pantoprazole Sodium (PANTOPRAZOLE SODIUM) 40 Mg Inj, 40 MG PO DAILY, INJ 12/31/16 Mycophenolate Mofetil (Cellcept) 500 Mg Tab, 2 TAB PO BID, #360 TAB 3 Refills 12/31/16 Multiple Vitamin (Multivitamins) Cap, 1 CAP PO DAILY, #30 CAP 3 Refills 12/31/16 Insulin Detemir (Levemir Flextouch) 100 Unit/Ml Inj, 100 UNIT SC HS, INJ 12/31/16 Gabapentin (Gabapentin) 100 Mg Cap, 100 MG PO TID 12/31/16 Finasteride (Finasteride) 5 Mg Tab, 5 MG PO HS for 30 Days, MG 12/31/16 Entecavir Monohydrate (Entecavir) 0.5 Mg Tab, 0.5 MG PO HS, TAB 12/31/16 Enoxaparin Sodium (Enoxaparin Sodium) 30 Mg/0.3 Ml Inj, 30 MG SC HS, INJ 12/31/16 Atorvastatin Calcium (ATORVASTATIN CALCIUM) 20 Mg Tab, 20 MG PO HS, TAB 12/31/16 Current Medications Current Medications Medications (Trade) Dose Ordered Sig/Anish Route PRN Reason Start Time Stop Time Status Last Admin Metoprolol Tartrate (Lopressor) 5 mg Q5M IV 03/05/24 04:15 03/05/24 08:16 DC 03/05/24 04:30 Nitroglycerin (Ntrostat Sublingual) 0.4 mg Q5MINP PRN SL FOR CHEST PAIN 03/05/24 11:45 Morphine Sulfate 2 mg Q30M PRN IV FOR CHEST PAIN 03/05/24 11:45 Ceftriaxone Sodium 50 ml @ 100 mls/hr DAILY@09 IV 03/06/24 09:00 Ondansetron HCl (Zofran) 4 mg Q4HPRN PRN IV NAUSEA / VOMITING 03/05/24 11:45 Morphine Sulfate 2 mg Q4HPRN PRN IV SEVERE PAIN (7-10 PAIN SCALE) 03/05/24 11:45 03/05/24 14:12 Acetaminophen/ Hydrocodone Bitart ([place] 5/325MG Tab) 1 tab Q4HPRN PRN PO MODERATE PAIN (4-6 PAIN SCALE) 03/05/24 11:45 Famotidine (Pepcid Tablet) 10 mg EOD PO 03/06/24 10:00 Cyclobenzaprine HCl (Flexeril Tablet) 5 mg TID PO 03/05/24 14:00 03/05/24 14:11 Methylprednisolone Sodium Succinate (Solu Medrol) 40 mg BID IV 03/05/24 22:00 Sodium Chloride 1,000 ml @ 100 mls/hr Q10H IV 03/05/24 11:45 03/05/24 11:57 Enoxaparin Sodium (Lovenox) 30 mg DAILY SC 03/06/24 10:00 Furosemide (Lasix Injection) 20 mg BIDD IV 03/05/24 18:00 03/05/24 18:14 Metoprolol Tartrate (Lopressor Tablet) 12.5 mg BID PO 03/05/24 22:00 Finasteride (Proscar Tablet) 5 mg DAILY PO 03/06/24 10:00 Tamsulosin HCl (Flomax) 0.4 mg QPM PO 03/05/24 18:00 03/05/24 18:15 Diagnostic Test (Pha) (Accu-Chek Comfort Curve T) 1 strip ACHS 03/05/24 17:00 03/05/24 17:20 Insulin Human Regular (InsuLIN R) ACHS SC 03/05/24 17:00 03/05/24 17:22 Dextrose 50 ml UD PRN IV Blood Sugar LESS THAN 60 03/05/24 13:00 Levalbuterol HCl (Xopenex Medneb) 0.625 mg Q6HR NEB 03/05/24 18:00 Albuterol (Ventolin Medneb) 2.5 mg Q6HWA NEB 03/05/24 18:00 Ipratropium [place] (Atrovent Medneb) 0.5 mg Q6HR NEB 03/05/24 18:00 Acetaminophen (Tylenol Tablet) 650 mg Q4HP PRN PO MILD PAIN (1-3 PAIN SCALE) 03/05/24 18:15 Review of Systems Patient is short of breath. Difficult to fully evaluate for review of systems. No neurological or ENT anomalies of the non noted above. Cardiac and respiratory as noted. GI negative. Endocrine hematologic oncologic as noted. Vital Signs Vital Signs Date Time Temp Pulse Resp B/P (MAP) Pulse Ox O2 Delivery O2 Flow Rate FiO2 03/05/24 18:14 116/74 03/05/24 15:18 99.1 111 20 95 4.0 41 99.1 03/05/24 13:22 Nasal Cannula* Physical Exam His blood pressure is 104/54 with a respiratory rate of 20. His pulse is 111. HEENT examination is otherwise unremarkable artery well hydrated. Mild jugular distention no carotid bruits. Lungs reveal good air entry no rales or rhonchi. Increased expiratory phase. Heart exam reveals a regular S1-S2. Tachycardic. Faint heart sounds. Abdominal examination is unremarkable. Extremities show adequate perfusion w ithout clubbing or cyanosis no edema. Neurologically intact. Integumentary is otherwise unremarkable. Warm and dry Labs/Diagnostic Data Echocardiogram preliminarily reviewed. Shows normal left ventricular function with dilatation of the right ventricle. Pulmonary artery pressures of 60 mmHg consistent with pulmonary hypertension. TAPSE scored was not calculated. Labs Test 03/05/24 17:38 03/05/24 17:18 03/05/24 15:50 03/05/24 15:05 Range/Units POC Glucose 185 H 70-106 mg/dl Urine Color Light-yellow Yellow Urine Clarity Clear Clear Urine pH 5.5 5.0-9.0 Urine Specific [place] 1.018 1.001-1.035 Urine Protein 1+ H Negative Urine Ketones Negative Negative Urine Blood 1+ H Negative /uL Urine Nitrite Negative Negative Urine Bilirubin Negative Negative Urine Urobilinogen Normal Negative mg/dL Urine Leukocyte Esterase Negative Negative /uL Urine RBC 1 0 - 3 /hpf Urine WBC 1 0 - 3 /hpf Urine Squamous Epithelial Cells None seen <5 /hpf Urine Bacteria Few H None Seen /hpf Urine Creatinine 113.12 30.0-125.0 mg/dL Urine Protein/Creatinine Ratio 0.55 Urine Sodium 101 40-220 mmol/L Urine Glucose 1+ H Normal mg/dL Urine Total Protein 62.3 H 1-14 mg/dL Urine Opiates Screen Neg NEGATIVE Urine Fentanyl Screen Neg NEGATIVE Urine Barbiturates Screen Neg NEGATIVE Urine Phencyclidine Screen Neg NEGATIVE Urine Amphetamines Screen Neg NEGATIVE Urine Benzodiazepines Screen Neg NEGATIVE Urine Cocaine Screen Neg NEGATIVE Urine Cannabinoids Screen Pos NEGATIVE Influenza Type A Antigen Negative Negative Influenza Type B Antigen Negative Negative SARS-CoV-2 Antigen (Rapid) Negative NEGATIVE Phosphorus Level 4.4 2.4-5.1 mg/dL Iron Level 15 L 65-175 ug/dL Total Iron Binding Capacity 220 L 250-425 ug/dL Percent Iron Saturation 6.8 L 20-55 % Ferritin 995.4 H 22-322 ng/mL Vitamin D 25-Hydroxy 92.1 30.0-100 ng/mL Test 03/05/24 12:02 03/05/24 05:52 03/05/24 02:55 Range/Units Lactic Acid Level 1.7 0.4-2.0 mmol/L Troponin I High Sensitivity 18 </=54 ng/L White Blood Count 11.1 H 4.4-10.8 10^3/uL Red Blood Count 4.59 4.5-5.90 10^6/uL Hemoglobin 8.7 L 13.5-17.5 g/dL Hematocrit 28.8 L 41.0-53.0 % Mean Corpuscular Volume 62.8 L 80.0-100.0 fL Mean Corpuscular Hemoglobin 19.0 L 28.0-32.0 pg Mean Corpuscular Hemoglobin Concent 30.3 L 32.0-36.0 g/dL Red Cell Distribution Width 19.5 H 11.8-14.3 % Platelet Count 165 140-450 10^3/uL Mean Platelet Volume 8.3 6.9-10.8 fL Neutrophils (%) (Auto) 85.4 H 37.0-80.0 % Lymphocytes (%) (Auto) 9.5 L 10.0-50.0 % Monocytes (%) (Auto) 4.4 0.0-12.0 % Eosinophils (%) (Auto) 0.2 0.0-7.0 % Basophils (%) (Auto) 0.5 0.0-2.0 % Neutrophils # (Auto) 9.4 H 1.6-8.6 10 ^3/uL Lymphocytes # (Auto) 1.1 0.4-5.4 10 ^3/uL Monocytes # (Auto) 0.5 0-1.3 10 ^3/uL Eosinophils # (Auto) 0 0-0.8 10 ^3/uL Basophils # (Auto) 0.1 0-0.2 10 ^3/uL Nucleated Red Blood Cells 0.1 % Platelet Estimate Adequate Hypochromasia (manual) Marked Poikilocytosis (manual) Slight Anisocytosis (manual) Slight Microcytosis Marked Target Cells Few Ovalocytes Few Dona Cells Moderate Schistocytes Few Prothrombin Time 11.3 9.3-11.8 sec Prothrombin Time INR 1.07 0.9-1.15 Activated Partial Thromboplast Time 21.2 L 24.5-34.5 SEC B-Type Natriuretic Peptide 71.78 0-100 pg/mL Parathyroid Hormone (Intact) 82.5 H 18.4-80.1 pg/mL Assessment Noted history of shortness of breath status post lung transplantation as history of COPD. Given pulmonary hypertension and progressive dysrhythmias underlying atrial fibrillation would strongly consider pulmonary embolization. Status post recent fall. Acute kidney injury. Atrial fibrillation. Rapid ventricular response. Plan/Recommendation I will recommend full anticoagulation for now. Lovenox a mg per kilos Q 24 given low GFR. V/Q scan to be performed in the morning.Patient's heart rate is intermittently rapid. We will hold off on any antiarrhythmic for now and treat with O2 and anticoagulation for now. Plan discussed with: Patient Date of Service: Mar 05, 2024 Billing Provider: KIRK BINGHAM Sr., MD Cardiology Common Codes: 10742-EVZXVPC INP/OBS CARE (High) Cardiology Consultation Codes: 00312-[id number] CONSULT <60MIN KIRK BINGHAM Sr., MD Mar 05, 2024 18:38
[2024-03-05] MEDS: IPRATROPIUM BROM 0.5 MG/2.5ML INH SOL NEB SCH (18:55)
[2024-03-05] MEDS: LEVALBUTEROL HCL 1.25 MG/3 ML NEB NEB SCH (18:55)
[2024-03-05] MEDS: ENOXAPARIN SOD 80 MG/0.8ML SYRINGE SC ONE (19:27)
[2024-03-05] MEDS: methylPREDNISolone SOD SUCC 40 MG/ML VL IV SCH (21:50)
[2024-03-06] VITALS (85 sets, daily range): BP systolic 88–150; BP diastolic 42–89; PULSE 78–124; RESP 10–29; TEMP 97.7–99.2; O2SAT 89–100
[2024-03-06 03:54] LABS: Red Cell Distribution Width 19.4 % (11.8-14.3); White Blood Cell 6.7 10^3/uL (4.4-10.8)
[2024-03-06 03:57] LABS: Basophils # (auto) 0 10 ^3/uL (0-0.2); Eosinophils # (auto) 0 10 ^3/uL (0-0.8); Hematocrit 29.3 % (41.0-53.0); Hemoglobin 9.1 g/dL (13.5-17.5); Lymphocytes # (auto) 0.5 10 ^3/uL (0.4-5.4); Lymphocytes % (auto) 8.1 % (10.0-50.0); Mean Corpuscular Hemoglobin 19.2 pg (28.0-32.0); Mean Corpuscular Hgb Conc. 31.1 g/dL (32.0-36.0); Mean Corpuscular Volume 61.7 fL (80.0-100.0); Monocytes # (auto) 0.1 10 ^3/uL (0-1.3); Monocytes % (auto) 1.3 % (0.0-12.0); Neutrophils % (auto) 90.6 % (37.0-80.0); Nucleated Red Blood Cells % 0.2 %; Platelet Count (auto) 140 10^3/uL (140-450); Red Blood Cells 4.75 10^6/uL (4.5-5.90)
[2024-03-06 04:08] LABS: Alanine Aminotransferase 25 U/L (7-40); Albumin 4.2 g/dL (3.2-4.8); Alkaline Phosphatase 51 U/L (46-116); Anion Gap 10 (5-15); Aspartate Aminotransferase 51 U/L (13-40); BUN/Creatinine Ratio 14.1 (10.0-20.0); Bilirubin, Total 0.5 mg/dL (0.2-1.0); Blood Urea Nitrogen 38 mg/dL (9-23); Calcium 9.1 mg/dL (8.7-10.4); Carbon Dioxide 23 mmol/L (20-31); Chloride 107 mmol/L (98-107); Glucose 130 mg/dL (74-106); Magnesium 2.2 mg/dL (1.6-2.6); Potassium 4.8 mmol/L (3.5-5.1); Sodium 140 mmol/L (136-145); Total Protein 7.1 g/dL (5.7-8.2)
--- NOTE | 2024-03-06 04:11 | DVH ---
CHEST RADIOGRAPH Indication:sob Technique: AP portable Comparison: XY CHEST PORTABLE on DOS: 03/05/24, CXR1 on DOS: 03/26/22, CXRP on DOS: 03/26/22, CHEST X RAY 1 VIEW on DOS: 03/25/22, CHEST PORTABLE on DOS: 03/24/22, XY CHEST PORTABLE on DOS: 03/05/24 FINDINGS: Heart size is enlarged. Aorta is tortuous. Volume loss in the right upper lung zone with elevation of the minor fissure There are no infiltrates or effusions. There is prominence of the right hilar shad ow. Degenerative changes in the thoracic spine. IMPRESSION: 1. Compared to previous exam minimal change. Volume loss in the right upper lung zone with elevation of the minor fissure.
[2024-03-06 04:57] LABS: Anisocytosis Slight; Target Cell FEW
[2024-03-06 04:58] LABS: Hypochromia Moderate; Platelet Estimate Adequate
[2024-03-06] MEDS: cefTRIAXone 1GM/50ML D5W 50 ML IV SCH (07:49)
[2024-03-06] MEDS: FINASTERIDE 5 MG TAB PO SCH (08:47)
[2024-03-06] MEDS: PANTOPRAZOLE 40 MG/10 ML VIAL INJ IV SCH (08:47)
[2024-03-06] MEDS: METOPROLOL TARTRATE 25 MG TAB PO SCH ×3 (08:47→22:04)
[2024-03-06] MEDS: ENOXAPARIN SOD 80 MG/0.8ML SYRINGE SC SCH (08:48)
[2024-03-06] MEDS: MYCOPHENOLATE 500 MG TAB PO SCH (08:48)
[2024-03-06] MEDS: EVEROLIMUS 0.5 MG PO SCH (08:49)
[2024-03-06] MEDS ORDERED: FAMOTIDINE 20 MG TAB PO SCH (10:00)
[2024-03-06] MEDS ORDERED: ENOXAPARIN SOD 30 MG/0.3 ML SYRINGE SC SCH (10:00)
--- NOTE | 2024-03-06 10:02 | DVHSR ---
APPROVED REPORT EXAM: Two-dimensional and M-mode echocardiogram with Doppler and color Doppler. Blood Pressure: 104/54 mmHg INDICATION sob DIMENSIONS LVDd4.2 (3.8-5.7cm)LA (2D)3.6 (1.9-4.0cm)Aortic Root3.4 (2.0-3.7cm) LVDs3.0 (2.5-4.0cm)LA (MM) (1.9-4.0cm)Aortic Cusp Exc1.6 (1.5-2.0cm) EF (%) 54.8 (55-70%)Rt. Atrium4.8 (1.9-4.0cm)Asc. Aorta cm IVSd1.1 (0.7-1.1cm)RV (D)3.0 (1.8-2.4cm) PWd1.1 (0.7-1.1cm) Mitral Valve MitralMitral Stenosis E wave0.78m/sMV Mean GR.mmHg A wave0.68m/sMV Peak GR.mmHg E/A ratio1.12D MVAcm2 DECEL [id number] 1/2 [place] Aortic Valve Aortic ValveAortic Stenosis V11.01m/Mckayla Mean GR.2mmHg V21.03m/Mckayla Peak GR.4mmHg Pulmonic Valve V21.09m/s Tricuspid Valve TR Velocity3.79m/s [id number] Other Information Technically limited study due to body habitus/ heart rate. Conclusion Normal left ventricular size and dimension. Normal left ventricular systolic function with ejection fraction 55%. There is a grade 2 diastolic dysfunction. Normal right ventricular size and dimension. Normal right ventricular systolic function. Moderately to severely elevated right ventricular systolic pressure 59 mm of mercury. Normal biatrial size and dimension. Normal aortic valve structure and function. Normal mitral valve structure. Normal tricuspid valve structure and function. The pulmonary valve is grossly normal. No pericardial effusion.
--- NOTE | 2024-03-06 12:26 | DVHPN2 ---
Progress Note - Dictate Date Seen: Mar 06, 2024 Medical Necessity Reason Pt with a Central, PICC or Fol: No Subjective patient awake and alert. his daughter at bedside vital signs Vital Sign Date Time Temp Pulse Resp B/P (MAP) Pulse Ox O2 Delivery O2 Flow Rate FiO2 03/06/24 11:00 97.7 93 15 112/65 (81) 95 97.7 03/06/24 08:00 Oxymizer 5 N/A Total Intake and Output 03/05/24 03/05/24 03/06/24 15:00 23:00 07:00 Intake Total 600 ml 940 ml Balance 600 ml 940 ml medications Current Medications Medications Dose Ordered Sig/Anish Route Start Time Stop Time Status Last Admin Dose Admin Nitroglycerin 0.4 mg Q5MINP PRN SL 03/05/24 11:45 Morphine Sulfate 2 mg Q30M PRN IV 03/05/24 11:45 Ceftriaxone Sodium 50 ml @ 100 mls/hr DAILY@09 IV 03/06/24 09:00 03/06/24 07:49 100 MLS/HR Ondansetron HCl 4 mg Q4HPRN PRN IV 03/05/24 11:45 Morphine Sulfate 2 mg Q4HPRN PRN IV 03/05/24 11:45 03/05/24 14:12 2 MG Acetaminophen/ Hydrocodone Bitart 1 tab Q4HPRN PRN PO 03/05/24 11:45 Cyclobenzaprine HCl 5 mg TID PO 03/05/24 14:00 03/06/24 06:14 5 MG Methylprednisolone Sodium Succinate 40 mg BID IV 03/05/24 22:00 03/06/24 07:49 40 MG Sodium Chloride 1,000 ml @ 100 mls/hr Q10H IV 03/05/24 11:45 03/06/24 07:49 100 MLS/HR Enoxaparin Sodium 30 mg DAILY SC 03/06/24 10:00 Hold Furosemide 20 mg BIDD IV 03/05/24 18:00 03/06/24 06:21 20 MG Finasteride 5 mg DAILY PO 03/06/24 10:00 03/06/24 08:47 5 MG Tamsulosin HCl 0.4 mg QPM PO 03/05/24 18:00 03/05/24 18:15 0.4 MG Diagnostic Test (Pha) 1 strip ACHS 10/31/24 17:00 03/06/24 08:49 1 STRIP Insulin Human Regular ACHS SC 03/05/24 17:00 03/06/24 11:15 4 UNITS Dextrose 50 ml UD PRN IV 03/05/24 13:00 Levalbuterol HCl 0.625 mg Q6HR NEB 03/05/24 18:00 03/06/24 06:18 0.625 MG Ipratropium [place] 0.5 mg Q6HR NEB 03/05/24 18:00 03/06/24 06:18 0.5 MG Acetaminophen 650 mg Q4HP PRN PO 03/05/24 18:15 03/05/24 18:32 650 MG Enoxaparin Sodium 80 mg DAILY SC 03/06/24 10:00 03/06/24 08:48 80 MG Pantoprazole Sodium 40 mg DAILY IV 03/06/24 10:00 03/06/24 08:47 40 MG Mycophenolate Mofetil 500 mg BID PO 03/06/24 10:00 03/06/24 08:48 500 MG Patient Own Medication 4 BID PO 03/06/24 10:00 03/06/24 08:49 4 Metoprolol Tartrate 12.5 mg BID PO 03/06/24 10:00 03/06/24 08:58 12.5 MG Docusate Sodium 100 mg BIDPRN PRN PO 03/06/24 10:30 objective gen: nad lungs: cta cvs: no rub ext: no edema laboratory and microbiology Laboratory Tests 03/06/24 03:28 Test 03/06/24 03:28 Range/Units Serum Glucose 130 H 74-106 mg/dL Assessment/Plan Acute kidney injury superimposed 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 Discussed with patient and his daughter at bedside. Plan discussed with: Patient, Daughter MONISHA REYES MD Mar 06, 2024 12:26
--- NOTE | 2024-03-06 12:35 | DVH ---
NUCLEAR MEDICINE VENTILATION/PERFUSION LUNG SCAN. INDICATION: Dyspnea COMPARISON: None TECHNIQUE: Following intravenous demonstration of 5.2 millicuries of technetium 99m MAA, and inhala tion of 7.8 mCi of Xe 133 scintigrams were obtained in multiple projections of the lungs. FINDINGS: Asymmetric decreased perfusion in the right lung. IMPRESSION: Mismatched defect is present in the right lung. If there is high clinical suspicion for pulmonary emb olism, recommend further evaluation with CTA chest.
--- NOTE | 2024-03-06 13:31 | DVHPN2 ---
Progress Note - Dictate Date Seen: Mar 06, 2024 Medical Necessity Reason Pt with a Central, PICC or Fol: No Subjective He is more alert and awake and feels better today. On 4 L of oxygen via nasal cannula. Heart rate is controlled. vital signs Vital Sign Date Time Temp Pulse Resp B/P (MAP) Pulse Ox O2 Delivery O2 Flow Rate FiO2 03/06/24 13:08 97 16 100 03/06/24 13:02 Nasal Cannula* 3 32 03/06/24 12:30 104/52 (69) 03/06/24 11:00 97.7 97.7 Total Intake and Output 03/05/24 03/05/24 03/06/24 15:00 23:00 07:00 Intake Total 600 ml 940 ml Balance 600 ml 940 ml medications Current Medications Medications Dose Ordered Sig/Anish Route Start Time Stop Time Status Last Admin Dose Admin Nitroglycerin 0.4 mg Q5MINP PRN SL 03/05/24 11:45 Morphine Sulfate 2 mg Q30M PRN IV 03/05/24 11:45 Ceftriaxone Sodium 50 ml @ 100 mls/hr DAILY@09 IV 03/06/24 09:00 03/06/24 07:49 100 MLS/HR Ondansetron HCl 4 mg Q4HPRN PRN IV 03/05/24 11:45 Morphine Sulfate 2 mg Q4HPRN PRN IV 03/05/24 11:45 03/05/24 14:12 2 MG Acetaminophen/ Hydrocodone Bitart 1 tab Q4HPRN PRN PO 03/05/24 11:45 Cyclobenzaprine HCl 5 mg TID PO 03/05/24 14:00 03/06/24 12:59 5 MG Methylprednisolone Sodium Succinate 40 mg BID IV 03/05/24 22:00 03/06/24 07:49 40 MG Sodium Chloride 1,000 ml @ 100 mls/hr Q10H IV 03/05/24 11:45 03/06/24 07:49 100 MLS/HR Enoxaparin Sodium 30 mg DAILY SC 03/06/24 10:00 Hold Furosemide 20 mg BIDD IV 03/05/24 18:00 03/06/24 06:21 20 MG Finasteride 5 mg DAILY PO 03/06/24 10:00 03/06/24 08:47 5 MG Tamsulosin HCl 0.4 mg QPM PO 03/05/24 18:00 03/05/24 18:15 0.4 MG Diagnostic Test (Pha) 1 strip ACHS 03/05/24 17:00 03/06/24 12:59 1 STRIP Insulin Human Regular ACHS SC 03/05/24 17:00 03/06/24 11:15 4 UNITS Dextrose 50 ml UD PRN IV 03/05/24 13:00 Levalbuterol HCl 0.625 mg Q6HR NEB 03/05/24 18:00 03/06/24 13:02 0.625 MG Ipratropium [place] 0.5 mg Q6HR NEB 03/05/24 18:00 03/06/24 13:02 0.5 MG Acetaminophen 650 mg Q4HP PRN PO 03/05/24 18:15 03/05/24 18:32 650 MG Enoxaparin Sodium 80 mg DAILY SC 03/06/24 10:00 03/06/24 08:48 80 MG Pantoprazole Sodium 40 mg DAILY IV 03/06/24 10:00 03/06/24 08:47 40 MG Mycophenolate Mofetil 500 mg BID PO 03/06/24 10:00 03/06/24 08:48 500 MG Patient Own Medication 4 BID PO 03/06/24 10:00 03/06/24 08:49 4 Metoprolol Tartrate 12.5 mg BID PO 03/06/24 10:00 03/06/24 08:58 12.5 MG Docusate Sodium 100 mg BIDPRN PRN PO 03/06/24 10:30 objective Comfortable in bed without distress. Son at bedside. HEENT neck supple no JVD. Heart regular rate and rhythm S1-S2. Lungs fair air movement without any wheezing. Abdomen soft positive bowel sounds. Extremities no significant edema. laboratory and microbiology Laboratory Tests 03/06/24 03:28 Test 03/06/24 03:28 Range/Units Serum Glucose 130 H 74-106 mg/dL Assessment/Plan Respiratory status has improved. Blood and urine cultures so far negative for growth. Vital signs are stable. Titrate the oxygen down to use home 3 L via nasal cannula. Given patient is clinically stable to we will downgrade and transferred him to telemetry floor. Physical therapy evaluation. His CT of the pelvis and hips reviewed and no acute fractures noted however osteoporosis noted. Further clinical management per clinical course. Discussed with the patient and family at bedside regarding care plan. Problems(with codes): (1) L1 vertebral fracture (2) Fall (3) Diabetes mellitus (4) Atrial fibrillation Plan discussed with: Other HERRERA ENRIQUEZ MD Mar 06, 2024 13:31
--- NOTE | 2024-03-06 14:51 | DVHINCON2 ---
Consultation - Spinal Surgery Date Seen: Mar 06, 2024 Referring Physician Referring Physician Attending Doctor: Janak Diego MD Reason for Consultation Chief Complaint: Fall Injury History of Present Illness History of Present Illness HPI Comments 78 y/o M, with a Hx of AFIB, COPD w/home O2, DM, HLD, HTN, liver disease, bilateral lung transplant, and former tobacco use, is BIBA for c/o buttock pain s/p mechanical fall and injury, today. Per EMS report, patient fell from ground- level and landed on his buttocks in his bathtub, while trying to get out, this morning. Patient endorses on no head or additional injuries along with LOC. Patient states pain being an 8/10 and non-radiating. On scene, patient was found in AFIB RVR and a blood glucose of 93, with all remaining vitals within normal limits. En route, patient was given 2.5L NS bolus. Patient denies having any prior symptoms to fall in addition to any current weakness, numbness, tingling sensation, chest pain, shortness of breath, or other associated symptoms or modifiers at this time. Past Medical/Surgical History Past Medical/Surgical History Past Medical History AFIB, COPD (w/home O2), DM, High Lipids, HTN, status post right lung transplant, osteoporosis, chronic vertebral fracture Past Surgical History lung transplant in 2016 Family and Social History Family and Social History Family History: Hypertension Smoke: No ALCOHOL: rare Lives: with Family Allergies and medications Allergies: Coded Allergies: No Known Drug Allergy (Verified Allergy, Unknown, 08/25/15) Home Meds Active Scripts Doxycycline (Monohydrate) (Doxycycline) 100 Mg Cap, 100 MG PO BID, #14 CAP Prov:REINALDO KRAUS MD 03/25/22 Albuterol Sulfate (VENTOLIN MDI) 90 Mcg Ih, 2 PUFF IN Q4HPRN PRN, #1 INHALER Prov:REINALDO KRAUS MD 03/25/22 Dexamethasone (Decadron) 6 Mg Tab, 6 MG PO DAILY@BREAKFAST, #8 TAB Prov:REINALDO KRAUS MD 03/25/22 Yeast (S. Boulardii)(S. Cerevi (Florastor) 250 Mg Cap, 250 MG PO DAILY, #7 CAP Prov:CATHERINE VALDES MD 01/03/17 Levofloxacin (Levaquin) 250 Mg Tab, 250 MG PO DAILY, #5 TAB Prov:CATHERINE VALDES MD 01/03/17 Fluconazole (Diflucan) 200 Mg Tab, 1 TAB PO DAILY, #7 TAB Prov:CATHERINE VALDES MD 01/03/17 Reported Medications Oxycodone Hcl (OXYCODONE HCL) 5 Mg Tb, 10 MG PO Q4HPRN PRN for MODERATE PAIN 12/31/16 Tamsulosin Hcl (Tamsulosin Hcl) 0.4 Mg Cap, 0.4 MG PO QPM for 30 Days, MG 12/31/16 Tacrolimus (ASTAGRAF XL) 1 Mg Cap, 3 MG PO BID, CAP 12/31/16 Prednisone (PREDNISONE) 5 Mg Tb, 10 MG PO DAILY 12/31/16 Pantoprazole Sodium (PANTOPRAZOLE SODIUM) 40 Mg Inj, 40 MG PO DAILY, INJ 12/31/16 Mycophenolate Mofetil (Cellcept) 500 Mg Tab, 2 TAB PO BID, #360 TAB 3 Refills 12/31/16 Multiple Vitamin (Multivitamins) Cap, 1 CAP PO DAILY, #30 CAP 3 Refills 12/31/16 Insulin Detemir (Levemir Flextouch) 100 Unit/Ml Inj, 100 UNIT SC HS, INJ 12/31/16 Gabapentin (Gabapentin) 100 Mg Cap, 100 MG PO TID 12/31/16 Finasteride (Finasteride) 5 Mg Tab, 5 MG PO HS for 30 Days, MG 12/31/16 Entecavir Monohydrate (Entecavir) 0.5 Mg Tab, 0.5 MG PO HS, TAB 12/31/16 Enoxaparin Sodium (Enoxaparin Sodium) 30 Mg/0.3 Ml Inj, 30 MG SC HS, INJ 12/31/16 Atorvastatin Calcium (ATORVASTATIN CALCIUM) 20 Mg Tab, 20 MG PO HS, TAB 12/31/16 Review of systems Review of Systems: HEENT:Normal, CVS:Abnormal (AFib, COPD on home O2), RESPIRATORY:Abnormal (Bilateral lung transplant), GI:Normal, :Normal, MSK:Normal, NEURO:Normal Examination Vital signs Imaging ORDER NUMBER(s): [id number], ACCESSION NUMBER(s): [id number] Examination: LS2CT CLINICAL INDICATION: fall COMPARISON: None. CONTRAST USED: None. TECHNIQUE: Axial sections through the lumbar spine with sagittal and coronal reformats are obtained without contrast. Multiplanar reconstructions were obtained. CT scan done according to ALARA (As Low As Reasonably Achievable). FINDINGS: The alignment of the lumbosacral spine is maintained. Degenerative changes are seen in the form of multilevel marginal osteophytes and Schmorls nodes. Acute fracture is seen involving the L1 vertebra with mild reduction in height. Chronic compression deformity with severe reduction in the height of L5 vertebra is seen. There is posterior retropulsion of the posterior cortex into the spinal canal causing spinal canal stenosis. Rest of the vertebral bodies and posterior elements are unremarkable. No destructive bony lesion is noted. The pre and paravertebral soft tissues are unremarkable. The sacroiliac joints are unremarkable to the extent visualized. Atherosclerotic changes are seen involving the descending abdominal aorta and bilateral iliac arteries with ectasia. Multiple calcified periportal lymph nodes are seen. Incidentally detected bilateral renal [place] 1 simple cortical cysts, largest measuring 29 mm in right kidney. No follow-up is recommended as incidentally detected renal lesions are likely benign. Rest of the abdominal organs to the extent visualized are unremarkable. Diffuse osteopenia. Chronic fracture of the right 11th rib is seen. Post-operative surgical hardware is proximal of right femur. T12-L1: Disc height is within normal limits. There is no significant disc herniation, central canal or neural foraminal narrowing. The facet joints and ligamentum flavum are within normal limits. L1-L2: Disc height is within normal limits. There is no significant disc herniation, central canal or neural foraminal narrowing. The facet joints and ligamentum flavum are within normal limits. L2-L3: Disc height is within normal limits. There is no significant disc herniation, central canal or neural foraminal narrowing. The facet joints and ligamentum flavum are within normal limits. L3-L4: Disc height is within normal limits. Diffuse disc bulge is seen, measuring 1.8 mm indenting on the ventral thecal sac. Bilateral neural foraminal narrowing is seen. Bilateral facet arthropathy is seen. Bilateral ligamentum flavum hypertrophy is seen. Moderate spinal canal stenosis is seen. L4-L5: Disc height is within normal limits. Diffuse disc bulge is seen, measuring 5.4 mm indenting on the ventral thecal sac. Bilateral neural foraminal narrowing is seen. Bilateral facet arthropathy is seen. Bilateral ligamentum flavum hypertrophy is seen. Severe spinal canal stenosis is seen. L5-S1: Disc height is within normal limits. Diffuse disc bulge is seen, measuring 4 mm indenting on the ventral thecal sac. Bilateral neural foraminal narrowing is seen. Bilateral facet arthropathy is seen. Bilateral ligamentum flavum hypertrophy is seen. Mild spinal canal stenosis is seen. IMPRESSION: 1. Acute fracture is seen involving the L1 vertebra with mild reduction in height. Chronic compression deformity with severe reduction in the height of L5 vertebra is seen. 2. Degenerative changes in the lumbar spine as described above. 3. Additional chronic and/or ancillary findings as detailed above. 4. Suggest clinical correlation and follow-up as clinically deemed necessary. Vital Signs Date Time Temp Pulse Resp B/P (MAP) Pulse Ox O2 Delivery O2 Flow Rate FiO2 03/06/24 13:45 100 16 116/78 (91) 96 03/06/24 13:02 Nasal Cannula* 3 32 03/06/24 11:00 97.7 97.7 Medications Current Medications Medications (Trade) Dose Ordered Sig/Anish Route PRN Reason Start Time Stop Time Status Last Admin Ceftriaxone Sodium 50 ml @ 100 mls/hr DAILY@09 IV 03/06/24 09:00 03/06/24 07:49 Famotidine (Pepcid Tablet) 10 mg EOD PO 03/06/24 10:00 03/06/24 08:20 DC Methylprednisolone Sodium Succinate (Solu Medrol) 40 mg BID IV 03/05/24 22:00 03/06/24 07:49 Enoxaparin Sodium (Lovenox) 30 mg DAILY SC 03/06/24 10:00 Hold Furosemide (Lasix Injection) 20 mg BIDD IV 03/05/24 18:00 03/06/24 06:21 Metoprolol Tartrate (Lopressor Tablet) 12.5 mg BID PO 03/05/24 22:00 03/06/24 08:15 DC 03/05/24 18:33 Finasteride (Proscar Tablet) 5 mg DAILY PO 03/06/24 10:00 03/06/24 08:47 Tamsulosin HCl (Flomax) 0.4 mg QPM PO 03/05/24 18:00 03/05/24 18:15 Diagnostic Test (Pha) (Accu-Chek Comfort Curve T) 1 strip ACHS 03/05/24 17:00 03/06/24 12:59 Insulin Human Regular (InsuLIN R) ACHS SC 03/05/24 17:00 03/06/24 11:15 Levalbuterol HCl (Xopenex Medneb) 0.625 mg Q6HR NEB 03/05/24 18:00 03/06/24 13:02 Albuterol (Ventolin Medneb) 2.5 mg Q6HWA NEB 03/05/24 18:00 03/05/24 18:46 DC Ipratropium [place] (Atrovent Medneb) 0.5 mg Q6HR NEB 03/05/24 18:00 03/06/24 13:02 Acetaminophen (Tylenol Tablet) 650 mg Q4HP PRN PO MILD PAIN (1-3 PAIN SCALE) 03/05/24 18:15 03/05/24 18:32 Enoxaparin Sodium (Lovenox) 80 mg DAILY SC 03/06/24 10:00 03/06/24 08:48 Metoprolol Tartrate (Lopressor Tablet) 25 mg BID PO 03/06/24 10:00 03/06/24 08:52 DC Pantoprazole Sodium (Protonix) 40 mg DAILY IV 03/06/24 10:00 03/06/24 08:47 Mycophenolate Mofetil (Cellcept) 500 mg BID PO 03/06/24 10:00 03/06/24 08:48 Patient Own Medication 4 BID PO 03/06/24 10:00 03/06/24 08:49 Metoprolol Tartrate (Lopressor Tablet) 12.5 mg BID PO 03/06/24 10:00 03/06/24 13:31 DC 03/06/24 08:58 Docusate Sodium (Colace Capsule) 100 mg BIDPRN PRN PO FOR CONSTIPATION 03/06/24 10:30 Metoprolol Tartrate (Lopressor Tablet) 25 mg BID PO 03/06/24 22:00 Gabapentin (Neurontin Capsule) 100 mg HS PO 03/06/24 22:00 Laboratory Labs Test 03/06/24 11:09 03/06/24 03:28 03/05/24 15:50 03/05/24 15:05 Range/Units POC Glucose 238 H 70-106 mg/dl White Blood Count 6.7 # 4.4-10.8 10^3/uL Red Blood Count 4.75 4.5-5.90 10^6/uL Hemoglobin 9.1 L 13.5-17.5 g/dL Hematocrit 29.3 L 41.0-53.0 % Mean Corpuscular Volume 61.7 L 80.0-100.0 fL Mean Corpuscular Hemoglobin 19.2 L 28.0-32.0 pg Mean Corpuscular Hemoglobin Concent 31.1 L 32.0-36.0 g/dL Red Cell Distribution Width 19.4 H 11.8-14.3 % Platelet Count 140 140-450 10^3/uL Mean Platelet Volume 8.3 6.9-10.8 fL Neutrophils (%) (Auto) 90.6 H 37.0-80.0 % Lymphocytes (%) (Auto) 8.1 L 10.0-50.0 % Monocytes (%) (Auto) 1.3 0.0-12.0 % Eosinophils (%) (Auto) 0.0 0.0-7.0 % Basophils (%) (Auto) 0.0 0.0-2.0 % Neutrophils # (Auto) 6.0 1.6-8.6 10 ^3/uL Lymphocytes # (Auto) 0.5 0.4-5.4 10 ^3/uL Monocytes # (Auto) 0.1 0-1.3 10 ^3/uL Eosinophils # (Auto) 0 0-0.8 10 ^3/uL Basophils # (Auto) 0 0-0.2 10 ^3/uL Nucleated Red Blood Cells 0.2 % Platelet Estimate Adequate Hypochromasia (manual) Moderate Poikilocytosis (manual) Slig Anisocytosis (manual) Slight Microcytosis Moderate Target Cells Few [place] Cells Few Schistocytes Few Sodium Level 140 136-145 mmol/L Potassium Level 4.8 3.5-5.1 mmol/L Chloride Level 107 98-107 mmol/L Carbon Dioxide Level 23 20-31 mmol/L Anion Gap 10 5-15 Blood Urea Nitrogen 38 H 9-23 mg/dL Creatinine 2.70 H 0.700-1.30 mg/dL Glomerular Filtration Rate Calc 23 >90 mL/min BUN/Creatinine Ratio 14.1 10.0-20.0 Serum Glucose 130 H 74-106 mg/dL Lactic Acid Level 1.4 0.4-2.0 mmol/L Calcium Level 9.1 8.7-10.4 mg/dL Magnesium Level 2.2 1.6-2.6 mg/dL Total Bilirubin 0.5 0.2-1.0 mg/dL Aspartate Amino Transferase (AST) 51 H 13-40 U/L Alanine Aminotransferase (ALT) 25 7-40 U/L Alkaline Phosphatase 51 46-116 U/L Total Protein 7.1 5.7-8.2 g/dL Albumin 4.2 3.2-4.8 g/dL Urine Color Light-yellow Yellow Urine Clarity Clear Clear Urine pH 5.5 5.0-9.0 Urine Specific [place] 1.018 1.001-1.035 Urine Protein 1+ H Negative Urine Ketones Negative Negative Urine Blood 1+ H Negative /uL Urine Nitrite Negative Negative Urine Bilirubin Negative Negative Urine Urobilinogen Normal Negative mg/dL Urine Leukocyte Esterase Negative Negative /uL Urine RBC 1 0 - 3 /hpf Urine WBC 1 0 - 3 /hpf Urine Squamous Epithelial Cells None seen <5 /hpf Urine Bacteria Few H None Seen /hpf Urine Creatinine 113.12 30.0-125.0 mg/dL Urine Protein/Creatinine Ratio 0.55 Urine Sodium 101 40-220 mmol/L Urine Glucose 1+ H Normal mg/dL Urine Total Protein 62.3 H 1-14 mg/dL Urine Opiates Screen Neg NEGATIVE Urine Fentanyl Screen Neg NEGATIVE Urine Barbiturates Screen Neg NEGATIVE Urine Phencyclidine Screen Neg NEGATIVE Urine Amphetamines Screen Neg NEGATIVE Urine Benzodiazepines Screen Neg NEGATIVE Urine Cocaine Screen Neg NEGATIVE Urine Cannabinoids Screen Pos NEGATIVE Influenza Type A Antigen Negative Negative Influenza Type B Antigen Negative Negative SARS-CoV-2 Antigen (Rapid) Negative NEGATIVE Phosphorus Level 4.4 2.4-5.1 mg/dL Iron Level 15 L 65-175 ug/dL Total Iron Binding Capacity 220 L 250-425 ug/dL Percent Iron Saturation 6.8 L 20-55 % Ferritin 995.4 H 22-322 ng/mL Vitamin D 25-Hydroxy 92.1 30.0-100 ng/mL Test 03/05/24 05:52 03/05/24 02:55 Range/Units Troponin I High Sensitivity 18 </=54 ng/L Ovalocytes Few Prothrombin Time 11.3 9.3-11.8 sec Prothrombin Time INR 1.07 0.9-1.15 Activated Partial Thromboplast Time 21.2 L 24.5-34.5 SEC B-Type Natriuretic Peptide 71.78 0-100 pg/mL Parathyroid Hormone (Intact) 82.5 H 18.4-80.1 pg/mL Microbiology Date/Time Source Procedure Growth Status 03/05/24 20:55 Nose MRSA Screen - Final Complete 03/05/24 15:50 Urine - Midstream Clean Catch Urine Culture - Preliminary Resulted 03/05/24 12:55 Blood Blood Culture - Preliminary NO GROWTH AFTER 24 HOURS OF INCUBATION. Resulted Examination: GENERAL:Normal, HEENT:Normal, NECK:Normal, LUNGS:Normal (At baseline per patient, normally on home O2), CVS:Abnormal (Patient currently in ICU due to AFib with RVR), ABDOMEN:Normal (No complaints), MSK:Normal (Patient demonstrating equal strong extremities, he is able to lift legs in generate very little pain to his low back. When he does have pain lifting his left leg it causes an achiness to his left low back. 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 Acute fracture is seen involving the L1 vertebra with mild reduction in height. Chronic compression deformity with severe reduction in the height of L5 vertebra is seen. 2. Degenerative changes in the lumbar spine This patient does not need emergent spine surgery at this time, he is not demonstrating any symptoms, he also states that his pain is minimal Patient states that he has had back issues for quite some time, it was discussed with the patient that if he starts to develop symptoms that are unrelenting or incapacitating also affecting his ability to walk and carry out his activities of daily living it is advised that he follow-up with spine surgery on outpatient basis. Patient is agreeable to this plan he has not had physical therapy in the past he has never had any surgery and he has never had any epidural steroid injections. Continue supportive care and pain management per admitting team's discretion Physical therapy evaluation and recommendations Recommend muscle relaxers for any muscle spasms the patient may be experiencing There is no barrier to discharge from a spine surgery perspective Follow-up with Dr. Truong Call [phone] for a appointment [id number] [place] [address] Call with questions Gina Vazquez [facility] Orthopaedic Spine Surgery nurse practitioner For Dr Abdulaziz Truong - for staff use only Patient was examined, chart reviewed, labs evaluated, and diagnostic studies and findings analyzed. Case was discussed with Dr. Rainer Truong who formulated the plan of care. This medical document was created using an electronic medical record system with [employer] dictation system. Although this document has been carefully reviewed, there might still be some phonetic and typographical errors. These areas are purely typographical due to imperfections of the software programs, and do not reflect any compromise in the patient's medical care. Plan discussed with Plan discussed with: Patient, Other (Bedside nurse) COURTNEY VAZQUEZ NP Mar 06, 2024 14:50
[2024-03-06] MEDS: DOCUSATE SOD 100 MG CAP PO PRN (22:01)
[2024-03-06] MEDS: GABAPENTIN 100 MG CAP PO SCH (22:04)
--- NOTE | 2024-03-06 22:25 | DVHPN2 ---
Progress Note - Dictate Date Seen: Mar 06, 2024 Medical Necessity Reason Pt with a Central, PICC or Fol: No vital signs Vital Sign Date Time Temp Pulse Resp B/P (MAP) Pulse Ox O2 Delivery O2 Flow Rate FiO2 03/06/24 22:04 101 120/73 03/06/24 19:13 14 99 03/06/24 19:05 Nasal Cannula 3.0 03/06/24 19:05 32 03/06/24 16:15 98.7 98.7 Total Intake and Output 03/05/24 03/05/24 03/06/24 15:00 23:00 07:00 Intake Total 600 ml 940 ml Balance 600 ml 940 ml medications Current Medications Medications Dose Ordered Sig/Anish Route Start Time Stop Time Status Last Admin Dose Admin Nitroglycerin 0.4 mg Q5MINP PRN SL 03/05/24 11:45 Morphine Sulfate 2 mg Q30M PRN IV 03/05/24 11:45 Ceftriaxone Sodium 50 ml @ 100 mls/hr DAILY@09 IV 03/06/24 09:00 03/06/24 07:49 100 MLS/HR Ondansetron HCl 4 mg Q4HPRN PRN IV 03/05/24 11:45 Morphine Sulfate 2 mg Q4HPRN PRN IV 03/05/24 11:45 03/05/24 14:12 2 MG Acetaminophen/ Hydrocodone Bitart 1 tab Q4HPRN PRN PO 03/05/24 11:45 Cyclobenzaprine HCl 5 mg TID PO 03/05/24 14:00 03/06/24 22:03 5 MG Methylprednisolone Sodium Succinate 40 mg BID IV 03/05/24 22:00 03/06/24 22:01 40 MG Enoxaparin Sodium 30 mg DAILY SC 03/06/24 10:00 Hold Furosemide 20 mg BIDD IV 03/05/24 18:00 03/06/24 17:35 20 MG Finasteride 5 mg DAILY PO 03/06/24 10:00 03/06/24 08:47 5 MG Tamsulosin HCl 0.4 mg QPM PO 03/05/24 18:00 03/06/24 17:32 0.4 MG Diagnostic Test (Pha) 1 strip ACHS 03/05/24 17:00 03/06/24 22:04 1 STRIP Insulin Human Regular ACHS SC 03/05/24 17:00 03/06/24 16:23 3 UNITS Dextrose 50 ml UD PRN IV 03/05/24 13:00 Levalbuterol HCl 0.625 mg Q6HR NEB 03/05/24 18:00 03/06/24 19:05 0.625 MG Ipratropium [place] 0.5 mg Q6HR NEB 03/05/24 18:00 03/06/24 19:05 0.5 MG Acetaminophen 650 mg Q4HP PRN PO 03/05/24 18:15 03/05/24 18:32 650 MG Enoxaparin Sodium 80 mg DAILY SC 03/06/24 10:00 03/06/24 08:48 80 MG Pantoprazole Sodium 40 mg DAILY IV 03/06/24 10:00 03/06/24 08:47 40 MG Mycophenolate Mofetil 500 mg BID PO 03/06/24 10:00 03/06/24 22:01 500 MG Patient Own Medication 4 BID PO 03/06/24 10:00 03/06/24 08:49 4 Docusate Sodium 100 mg BIDPRN PRN PO 03/06/24 10:30 03/06/24 22:01 100 MG Metoprolol Tartrate 25 mg BID PO 03/06/24 22:00 03/06/24 22:04 25 MG Gabapentin 100 mg HS PO 03/06/24 22:00 03/06/24 22:04 100 MG laboratory and microbiology Laboratory Tests 03/06/24 03:28 Test 03/06/24 03:28 Range/Units Serum Glucose 130 H 74-106 mg/dL BO [facility] Mar 06, 2024 22:25
[2024-03-07] VITALS (27 sets, daily range): BP systolic 94–128; BP diastolic 51–79; PULSE 74–115; RESP 11–18; TEMP 98–99; O2SAT 91–100
[2024-03-07 03:35] LABS: Eosinophils # (auto) 0 10 ^3/uL (0-0.8); Hematocrit 25.2 % (41.0-53.0); Lymphocytes # (auto) 0.4 10 ^3/uL (0.4-5.4); Lymphocytes % (auto) 5.7 % (10.0-50.0); Mean Corpuscular Hemoglobin 19.1 pg (28.0-32.0); Mean Corpuscular Hgb Conc. 31.1 g/dL (32.0-36.0); Mean Corpuscular Volume 61.3 fL (80.0-100.0); Monocytes # (auto) 0.1 10 ^3/uL (0-1.3); Neutrophils # (auto) 6.6 10 ^3/uL (1.6-8.6); Red Blood Cells 4.12 10^6/uL (4.5-5.90); White Blood Cell 7.2 10^3/uL (4.4-10.8)
[2024-03-07 03:37] LABS: Basophils # (auto) 0 10 ^3/uL (0-0.2); Basophils % (auto) 0.4 % (0.0-2.0); Hemoglobin 7.8 g/dL (13.5-17.5); Monocytes % (auto) 1.6 % (0.0-12.0); Neutrophils % (auto) 92.3 % (37.0-80.0); Platelet Count (auto) 124 10^3/uL (140-450)
[2024-03-07 03:50] LABS: Red Cell Distribution Width 19.3 % (11.8-14.3)
[2024-03-07 04:09] LABS: Alanine Aminotransferase 21 U/L (7-40); Albumin 3.8 g/dL (3.2-4.8); Alkaline Phosphatase 43 U/L (46-116); Anion Gap 7 (5-15); Aspartate Aminotransferase 34 U/L (13-40); BUN/Creatinine Ratio 14.4 (10.0-20.0); Bilirubin, Total 0.4 mg/dL (0.2-1.0); Blood Urea Nitrogen 42 mg/dL (9-23); Calcium 8.5 mg/dL (8.7-10.4); Carbon Dioxide 25 mmol/L (20-31); Chloride 105 mmol/L (98-107); Glucose 217 mg/dL (74-106); Magnesium 2.1 mg/dL (1.6-2.6); Potassium 4.7 mmol/L (3.5-5.1); Sodium 137 mmol/L (136-145)
[2024-03-07 04:10] LABS: Total Protein 6.1 g/dL (5.7-8.2)
--- NOTE | 2024-03-07 10:21 | DVHPN2 ---
Progress Note - Dictate Date Seen: Mar 06, 2024 Medical Necessity Reason Pt with a Central, PICC or Fol: No Subjective Patient seen and examined at bedside. Remains on supplemental oxygen Overnight events reviewed. vital signs Vital Sign Date Time Temp Pulse Resp B/P (MAP) Pulse Ox O2 Delivery O2 Flow Rate FiO2 03/07/24 06:57 87 18 100 03/07/24 06:51 Nasal Cannula* 3 32 03/07/24 05:49 116/68 03/07/24 05:00 98.1 98.1 Total Intake and Output 03/06/24 03/06/24 03/07/24 15:00 23:00 07:00 Intake Total 600 ml 850 ml 300 ml Output Total 1070 ml 850 ml Balance 600 ml -220 ml -550 ml medications Current Medications Medications Dose Ordered Sig/Anish Route Start Time Stop Time Status Last Admin Dose Admin Nitroglycerin 0.4 mg Q5MINP PRN SL 03/05/24 11:45 Morphine Sulfate 2 mg Q30M PRN IV 03/05/24 11:45 Ceftriaxone Sodium 50 ml @ 100 mls/hr DAILY@09 IV 03/06/24 09:00 03/06/24 07:49 100 MLS/HR Ondansetron HCl 4 mg Q4HPRN PRN IV 03/05/24 11:45 Morphine Sulfate 2 mg Q4HPRN PRN IV 03/05/24 11:45 03/05/24 14:12 2 MG Acetaminophen/ Hydrocodone Bitart 1 tab Q4HPRN PRN PO 03/05/24 11:45 Cyclobenzaprine HCl 5 mg TID PO 03/05/24 14:00 03/07/24 05:49 5 MG Methylprednisolone Sodium Succinate 40 mg BID IV 03/05/24 22:00 03/06/24 22:01 40 MG Enoxaparin Sodium 30 mg DAILY SC 03/06/24 10:00 Hold Furosemide 20 mg BIDD IV 03/05/24 18:00 03/07/24 05:49 20 MG Finasteride 5 mg DAILY PO 03/06/24 10:00 03/06/24 08:47 5 MG Tamsulosin HCl 0.4 mg QPM PO 03/05/24 18:00 03/06/24 17:32 0.4 MG Diagnostic Test (Pha) 1 strip ACHS 03/05/24 17:00 03/07/24 05:49 1 STRIP Insulin Human Regular ACHS SC 03/05/24 17:00 03/07/24 05:52 4 UNITS Dextrose 50 ml UD PRN IV 03/05/24 13:00 Levalbuterol HCl 0.625 mg Q6HR NEB 03/05/24 18:00 03/07/24 06:51 0.625 MG Ipratropium [place] 0.5 mg Q6HR NEB 03/05/24 18:00 03/07/24 06:51 0.5 MG Acetaminophen 650 mg Q4HP PRN PO 03/05/24 18:15 03/05/24 18:32 650 MG Enoxaparin Sodium 80 mg DAILY SC 03/06/24 10:00 03/06/24 08:48 80 MG Pantoprazole Sodium 40 mg DAILY IV 03/06/24 10:00 03/06/24 08:47 40 MG Mycophenolate Mofetil 500 mg BID PO 03/06/24 10:00 03/06/24 22:01 500 MG Patient Own Medication 4 BID PO 03/06/24 10:00 03/06/24 22:06 4 Docusate Sodium 100 mg BIDPRN PRN PO 03/06/24 10:30 03/06/24 22:01 100 MG Metoprolol Tartrate 25 mg BID PO 03/06/24 22:00 03/06/24 22:04 25 MG Gabapentin 100 mg HS PO 03/06/24 22:00 03/06/24 22:04 100 MG objective Gen.: Patient lying in bed in no apparent distress. On supplemental oxygen. Head: Normocephalic, atraumatic. Eyes: EOMI/PERRLA. Ears: Normal hearing. Normal anatomy. Neck/trachea: Trachea midline, supple. Nose: Normal external anatomy. Mouth: Moist mucous membranes. Chest: Decreased air entry bilaterally. No wheezing or rhonchi. Cardiovascular: Positive S1, positive S2. Regular rate and rhythm. Abdomen: Positive bowel sounds in all 4 quadrants. Soft, non-tender, non- distended. : Deferred. Rectal: Deferred. Skin: Warm, dry. Intact. Extremities: 2+ radial pulses bilaterally. No lower extremity edema. Neuro: Awake, alert, oriented x3. No gross motor or sensory deficits. Cranial nerves II through XII intact. Gait not assessed. laboratory and microbiology Laboratory Tests 03/07/24 03:07 Test 03/07/24 03:07 Range/Units Serum Glucose 217 H 74-106 mg/dL Assessment/Plan Impression: Acute on chronic hypoxic respiratory failure secondary to acute exacerbation of COPD and atrial fibrillation with RVR COPD exacerbation Pleural effusion Atelectasis Emphysema Possible pulmonary hypertension Atrial fibrillation with RVR L1 vertebral fracture L5 vertebral fracture Hepatic cysts Events: Remains on 4 LPM NC Taper O2 as tolerated V/Q scan shows asymmetric decreased perfusion in the right lung: Mismatched defect present in the right lung. If there is high clinical suspicion for pulmonary embolism, recommend further evaluation with CTA chest. Awaiting Echocardiogram results Heart rate 118 - increase Lopressor dose. Resume CellCept Everolimus. Labs and imaging reviewed. Rest of plan as noted below Plan: CT chest report and images reviewed. Mild dilatation of pulmonary trunk at 35 mm. Follow up echocardiogram report to assess right ventricular systolic pressure for pulmonary hypertension. Trace bilateral pleural effusions tracking along the fissures with scattered bilateral lung atelectasis/scarring. Hyperinflation with emphysematous changes in the right lower lobe. Supplemental oxygen On 4 liters/minute via nasal cannula. Keep O2 saturation above 92%. Incentive spirometry Continue antibiotics Follow up cultures Bronchodilators IV steroids Taper as tolerated Diuresis euvolemia Monitor ins and outs. Monitor renal function. Monitor electrolytes. Supplement as necessary. GI prophylaxis-Pepcid DVT prophylaxis-Lovenox Prognosis: Poor given multiple comorbidities. Rest of plan per hospitalist and other consultants. Thank you Dr. Briceno for allowing me to participate in this patient's care. Further recommendations will depend on patient's clinical course. Please do not hesitate to contact me if you have any questions or concerns. This medical document was created using an electronic medical record system with [employer] dictation system. Although this document has been carefully reviewed, there may still be some phonetic and typographical errors. These areas are purely typographical due to imperfections of the software programs, and do not reflect any compromise in the patient's medical care. Plan discussed with: Patient, Other (REY Rosenthal) LIOR ALVAREZ MD Mar 07, 2024 10:21
[2024-03-07] MEDS: ONDANSETRON HCL 4 MG/2 ML VIAL IV PRN (11:38)
--- NOTE | 2024-03-07 16:53 | DVHPN2 ---
Progress Note - Dictate Date Seen: Mar 07, 2024 Medical Necessity Reason Pt with a Central, PICC or Fol: No Subjective On baseline 3 L oxygen via nasal cannula. No complaints. vital signs Vital Sign Date Time Temp Pulse Resp B/P (MAP) Pulse Ox O2 Delivery O2 Flow Rate FiO2 03/07/24 13:00 98.1 115 18 106/70 (82) 94 98.1 03/07/24 11:43 Nasal Cannula* 3 32 Total Intake and Output 03/06/24 03/06/24 03/07/24 15:00 23:00 07:00 Intake Total 600 ml 850 ml 300 ml Output Total 1070 ml 850 ml Balance 600 ml -220 ml -550 ml medications Current Medications Medications Dose Ordered Sig/Anish Route Start Time Stop Time Status Last Admin Dose Admin Nitroglycerin 0.4 mg Q5MINP PRN SL 03/05/24 11:45 Morphine Sulfate 2 mg Q30M PRN IV 03/05/24 11:45 Ceftriaxone Sodium 50 ml @ 100 mls/hr DAILY@09 IV 03/06/24 09:00 03/07/24 11:41 100 MLS/HR Ondansetron HCl 4 mg Q4HPRN PRN IV 03/05/24 11:45 03/07/24 11:38 4 MG Morphine Sulfate 2 mg Q4HPRN PRN IV 03/05/24 11:45 03/07/24 11:39 2 MG Acetaminophen/ Hydrocodone Bitart 1 tab Q4HPRN PRN PO 03/05/24 11:45 Cyclobenzaprine HCl 5 mg TID PO 03/05/24 14:00 03/07/24 14:42 5 MG Methylprednisolone Sodium Succinate 40 mg BID IV 03/05/24 22:00 03/07/24 11:39 40 MG Enoxaparin Sodium 30 mg DAILY SC 03/06/24 10:00 Hold Furosemide 20 mg BIDD IV 03/05/24 18:00 03/07/24 05:49 20 MG Finasteride 5 mg DAILY PO 03/06/24 10:00 03/07/24 11:39 5 MG Tamsulosin HCl 0.4 mg QPM PO 03/05/24 18:00 03/06/24 17:32 0.4 MG Diagnostic Test (Pha) 1 strip ACHS 03/05/24 17:00 03/07/24 11:52 1 STRIP Insulin Human Regular ACHS SC 03/05/24 17:00 03/07/24 13:10 6 UNITS Dextrose 50 ml UD PRN IV 03/05/24 13:00 Levalbuterol HCl 0.625 mg Q6HR NEB 03/05/24 18:00 03/07/24 06:51 0.625 MG Ipratropium [place] 0.5 mg Q6HR NEB 03/05/24 18:00 03/07/24 11:43 0.5 MG Acetaminophen 650 mg Q4HP PRN PO 03/05/24 18:15 03/05/24 18:32 650 MG Enoxaparin Sodium 80 mg DAILY SC 03/06/24 10:00 03/07/24 11:41 80 MG Pantoprazole Sodium 40 mg DAILY IV 03/06/24 10:00 03/07/24 11:37 40 MG Mycophenolate Mofetil 500 mg BID PO 03/06/24 10:00 03/07/24 13:05 500 MG Patient Own Medication 4 BID PO 03/06/24 10:00 03/07/24 13:06 4 Docusate Sodium 100 mg BIDPRN PRN PO 03/06/24 10:30 03/06/24 22:01 100 MG Metoprolol Tartrate 25 mg BID PO 03/06/24 22:00 03/07/24 11:40 25 MG Gabapentin 100 mg HS PO 03/06/24 22:00 03/06/24 22:04 100 MG objective Comfortable in bed without distress. Son at bedside. HEENT neck supple no JVD. Heart regular rate and rhythm S1-S2. Lungs fair air movement without any wheezing. Abdomen soft positive bowel sounds. Extremities no edema. laboratory and microbiology Laboratory Tests 03/07/24 03:07 Test 03/07/24 03:07 Range/Units Serum Glucose 217 H 74-106 mg/dL Assessment/Plan Respiratory status has improved. Kidney function mildly worsened possibly secondary to IV diuretics. Therefore I will DC Lasix. I will also DC Lovenox given the no clinical suspicion for high probability PE. Ultrasound of the legs no DVT. Oxygenation has improved. Continue present supportive care and treatment as he is on. His further clinical management per clinical course and recommendations from the consultants. Discussed with the patient's nurse regarding care plan. Plan discussed with: Other GANAPAVARAPU,HERRERA MD Mar 07, 2024 16:53
--- NOTE | 2024-03-07 17:47 | DVH ---
Bilateral lower extremity venous duplex Clinical History: sob Comparison: BLDVT on DOS: 03/24/22, BI LOWER DVT on DOS: 03/24/22 Technique: Duplex Doppler evaluation of the deep venous systems of both lower extremities from the common femora l veins to the popliteal veins including color Doppler and spectral/pulsed waveform analysis was perf ormed. Findings: RIGHT SIDE: The common femoral vein demonstrates appropriate compressibility and waveform variability. There is compressibility/patency of the great saphenous vein at the proximal thigh. The femoral vein demonstrates appropriate compressibility and waveform variability. The deep femoral vein demonstrates appropriate compressibility and waveform variability. The popliteal vein demonstrates appropriate compressibility and waveform variability. There is normal compressibility at the tibioperoneal trunk. LEFT SIDE: The common femoral vein demonstrates appropriate compressibility and waveform variability. There is compressibility/patency of the great saphenous vein at the proximal thigh. The femoral vein demonstrates appropriate compressibility and waveform variability. The deep femoral vein demonstrates appropriate compressibility and waveform variability. The popliteal vein demonstrates appropriate compressibility and waveform variability. There is normal compressibility at the tibioperoneal trunk. Impression: 1. No right or left femoropopliteal venous thrombosis.
--- NOTE | 2024-03-07 21:50 | DVHINCON2 ---
DATE OF CONSULTATION: 03/07/2024 PULMONARY FOLLOWUP PRIMARY PHYSICIAN: Dr. Herrera Enriquez. I am covering for Dr. Diaz. HISTORY OF PRESENT ILLNESS: The patient was seen in the morning. Also, discussed with bedside RN. The patient appears to be comfortable, in no distress. He has been transferred to the floor. He denies any orthopnea or PND. Maintaining saturations, not been running any fevers. He denies any chest pain or hemoptysis. He appears comfortable. PHYSICAL EXAMINATION: VITAL SIGNS: Stable. Respiratory rate is 18, blood pressure is 114/80, pulse ox 97 on 3 liters. NECK: Supple. No JVD. HEART: Reveals diminished air entry, prolonged exhalation. No rales were appreciated. ABDOMEN: Soft, nontender, bowel sounds normal. EXTREMITIES: No edema. LABORATORY WORK: Previously done CT on 03/05/2024 was reviewed, which shows mild dilatation of the pulmonary trunk, trace bilateral pleural effusions. Other findings as noted. The lab work significant for WBC 7, hematocrit 25, platelet count 124. Serum chemistries, BUN 42, creatinine 2.92. Others were noted. Influenza A and B as well as COVID antigen test has been negative. Cultures have been unremarkable. ASSESSMENT: Acute respiratory failure, COPD exacerbation. History of pleural effusion, possible pulmonary hypertension. PLAN: Continue current and titrate oxygen further down and discontinue oxygen if the patient is able to maintain saturations. Continue Rocephin for 7 days. Can change steroids to p.o. Continue Med nebs. The patient is on Xopenex and ipratropium. Incentive spirometry. The patient is also on Lovenox for DVT prophylaxis. Encourage ambulation and incentive spirometry. Rest of the management per response and course in hospital. Aniket Simon MD /PAR TID: [id number] RECEIPT: [id number] cc: HERRERA ENRIQUEZ
[2024-03-08] VITALS (17 sets, daily range): BP systolic 120–142; BP diastolic 70–86; PULSE 64–104; RESP 16–20; TEMP 97.3–98.4; O2SAT 94–99
[2024-03-08 08:27] LABS: Chloride 103 mmol/L (98-107); Sodium 138 mmol/L (136-145)
[2024-03-08 08:28] LABS: Anion Gap 14 (5-15); Calcium 8.6 mg/dL (8.7-10.4); Carbon Dioxide 21 mmol/L (20-31)
--- NOTE | 2024-03-08 08:30 | DVHINCON2 ---
Consultation - Spinal Surgery Date Seen: Mar 08, 2024 Referring Physician Referring Physician dr. poe History of Present Illness History of Present Illness Unfortunate gentleman with multiple medical problems sustained a fall same level unwitnessed comes in with multiple medical issues including low back pain without radicular issues no bowel or bladder incontinence no balance trouble Allergies and medications Allergies: Coded Allergies: No Known Drug Allergy (Verified Allergy, Unknown, 08/25/15) Home Meds Active Scripts Doxycycline (Monohydrate) (Doxycycline) 100 Mg Cap, 100 MG PO BID, #14 CAP Prov:REINALDO KRAUS MD 03/25/22 Albuterol Sulfate (VENTOLIN MDI) 90 Mcg Ih, 2 PUFF IN Q4HPRN PRN, #1 INHALER Prov:REINALDO KRAUS MD 03/25/22 Dexamethasone (Decadron) 6 Mg Tab, 6 MG PO DAILY@BREAKFAST, #8 TAB Prov:REINALDO KRAUS MD 03/25/22 Yeast (S. Boulardii)(S. Cerevi (Florastor) 250 Mg Cap, 250 MG PO DAILY, #7 CAP Prov:CATHERINE VALDES MD 01/03/17 Levofloxacin (Levaquin) 250 Mg Tab, 250 MG PO DAILY, #5 TAB Prov:CATHERINE VALDES MD 01/03/17 Fluconazole (Diflucan) 200 Mg Tab, 1 TAB PO DAILY, #7 TAB Prov:CATHERINE VALDES MD 01/03/17 Reported Medications Oxycodone Hcl (OXYCODONE HCL) 5 Mg Tb, 10 MG PO Q4HPRN PRN for MODERATE PAIN 12/31/16 Tamsulosin Hcl (Tamsulosin Hcl) 0.4 Mg Cap, 0.4 MG PO QPM for 30 Days, MG 12/31/16 Tacrolimus (ASTAGRAF XL) 1 Mg Cap, 3 MG PO BID, CAP 12/31/16 Prednisone (PREDNISONE) 5 Mg Tb, 10 MG PO DAILY 12/31/16 Pantoprazole Sodium (PANTOPRAZOLE SODIUM) 40 Mg Inj, 40 MG PO DAILY, INJ 12/31/16 Mycophenolate Mofetil (Cellcept) 500 Mg Tab, 2 TAB PO BID, #360 TAB 3 Refills 12/31/16 Multiple Vitamin (Multivitamins) Cap, 1 CAP PO DAILY, #30 CAP 3 Refills 12/31/16 Insulin Detemir (Levemir Flextouch) 100 Unit/Ml Inj, 100 UNIT SC HS, INJ 12/31/16 Gabapentin (Gabapentin) 100 Mg Cap, 100 MG PO TID 12/31/16 Finasteride (Finasteride) 5 Mg Tab, 5 MG PO HS for 30 Days, MG 12/31/16 Entecavir Monohydrate (Entecavir) 0.5 Mg Tab, 0.5 MG PO HS, TAB 12/31/16 Enoxaparin Sodium (Enoxaparin Sodium) 30 Mg/0.3 Ml Inj, 30 MG SC HS, INJ 12/31/16 Atorvastatin Calcium (ATORVASTATIN CALCIUM) 20 Mg Tab, 20 MG PO HS, TAB 12/31/16 Review of systems Review of Systems: HEENT:Normal, CVS:Normal, CVS:Abnormal, RESPIRATORY:Abnormal, GI:Abnormal, NEURO:Normal Examination Vital signs Vital Signs Date Time Temp Pulse Resp B/P (MAP) Pulse Ox O2 Delivery O2 Flow Rate FiO2 03/08/24 06:13 98 16 99 03/08/24 06:07 Nasal Cannula* 3 32 03/08/24 05:00 98.4 120/70 (87) 98.4 Laboratory [place] [id number] Ph: [phone] DIAGNOSTIC IMAGING Diagnostic Imaging Report : [id number] Signed PATIENT: LANA DUPONTEUHARRISONACCT: [id number] UNIT: [id number] : 1945 LOC: ER ROOM / BED: / AGE / SEX: 78 / M ADM STATUS: REG ER SERVICE [id number] ORDERING PHYSICIAN: AFRICA RUIZ MD PROCEDURE(s): LS2CT - LS SPINE WO CONTRAST REASON: fall ORDER NUMBER(s): [id number], ACCESSION NUMBER(s): [id number] Examination: LS2CT CLINICAL INDICATION: fall COMPARISON: None. CONTRAST USED: None. TECHNIQUE: Axial sections through the lumbar spine with sagittal and coronal reformats are obtained without contrast. Multiplanar reconstructions were obtained. CT scan done according to ALARA (As Low As Reasonably Achievable). FINDINGS: The alignment of the lumbosacral spine is maintained. Degenerative changes are seen in the form of multilevel marginal osteophytes and Schmorls nodes. Acute fracture is seen involving the L1 vertebra with mild reduction in height. Chronic compression deformity with severe reduction in the height of L5 vertebra is seen. There is posterior retropulsion of the posterior cortex into the spinal canal causing spinal canal stenosis. Rest of the vertebral bodies and posterior elements are unremarkable. No destructive bony lesion is noted. The pre and paravertebral soft tissues are unremarkable. The sacroiliac joints are unremarkable to the extent visualized. Atherosclerotic changes are seen involving the descending abdominal aorta and bilateral iliac arteries with ectasia. Multiple calcified periportal lymph nodes are seen. Incidentally detected bilateral renal [place] 1 simple cortical cysts, largest measuring 29 mm in right kidney. No follow-up is recommended as incidentally detected renal lesions are likely benign. Rest of the abdominal organs to the extent visualized are unremarkable. Diffuse osteopenia. Chronic fracture of the right 11th rib is seen. Post-operative surgical hardware is proximal of right femur. T12-L1: Disc height is within normal limits. There is no significant disc herniation, central canal or neural foraminal narrowing. The facet joints and ligamentum flavum are within normal limits. L1-L2: Disc height is within normal limits. There is no significant disc herniation, central canal or neural foraminal narrowing. The facet joints and ligamentum flavum are within normal limits. L2-L3: Disc height is within normal limits. There is no significant disc herniation, central canal or neural foraminal narrowing. The facet joints and ligamentum flavum are within normal limits. L3-L4: Disc height is within normal limits. Diffuse disc bulge is seen, measuring 1.8 mm indenting on the ventral thecal sac. Bilateral neural foraminal narrowing is seen. Bilateral facet arthropathy is seen. Bilateral ligamentum flavum hypertrophy is seen. Moderate spinal canal stenosis is seen. L4-L5: Disc height is within normal limits. Diffuse disc bulge is seen, measuring 5.4 mm indenting on the ventral thecal sac. Bilateral neural foraminal narrowing is seen. Bilateral facet arthropathy is seen. Bilateral ligamentum flavum hypertrophy is seen. Severe spinal canal stenosis is seen. L5-S1: Disc height is within normal limits. Diffuse disc bulge is seen, measuring 4 mm indenting on the ventral thecal sac. Bilateral neural foraminal narrowing is seen. Bilateral facet arthropathy is seen. Bilateral ligamentum flavum hypertrophy is seen. Mild spinal canal stenosis is seen. IMPRESSION: 1. Acute fracture is seen involving the L1 vertebra with mild reduction in height. Chronic compression deformity with severe reduction in the height of L5 vertebra is seen. 2. Degenerative changes in the lumbar spine as described above. 3. Additional chronic and/or ancillary findings as detailed above. 4. Suggest clinical correlation and follow-up as clinically deemed necessary. Electronically Signed 03/05/2024 04:18 Inder Layton ATED BY: CALIN SALDAÑA MD DICTATED DATE/TIME: 03/05/24417 SIGNED BY: CALIN SALDAÑA MD SIGNED DATE/TIME: 03/05/24417 CC: Labs Test 03/08/24 06:11 03/08/24 06:06 03/07/24 03:07 03/06/24 03:28 Range/Units POC Glucose 258 H 70-106 mg/dl White Blood Count 7.2 4.4-10.8 10^3/uL Red Blood Count 4.12 L 4.5-5.90 10^6/uL Hemoglobin 7.8 L 13.5-17.5 g/dL Hematocrit 25.2 #L 41.0-53.0 % Mean Corpuscular Volume 61.3 L 80.0-100.0 fL Mean Corpuscular Hemoglobin 19.1 L 28.0-32.0 pg Mean Corpuscular Hemoglobin Concent 31.1 L 32.0-36.0 g/dL Red Cell Distribution Width 19.3 H 11.8-14.3 % Platelet Count 124 L 140-450 10^3/uL Mean Platelet Volume 8.3 6.9-10.8 fL Neutrophils (%) (Auto) 92.3 H 37.0-80.0 % Lymphocytes (%) (Auto) 5.7 L 10.0-50.0 % Monocytes (%) (Auto) 1.6 0.0-12.0 % Eosinophils (%) (Auto) 0.0 0.0-7.0 % Basophils (%) (Auto) 0.4 0.0-2.0 % Neutrophils # (Auto) 6.6 1.6-8.6 10 ^3/uL Lymphocytes # (Auto) 0.4 0.4-5.4 10 ^3/uL Monocytes # (Auto) 0.1 0-1.3 10 ^3/uL Eosinophils # (Auto) 0 0-0.8 10 ^3/uL Basophils # (Auto) 0 0-0.2 10 ^3/uL Nucleated Red Blood Cells 0.0 % Magnesium Level 2.1 1.6-2.6 mg/dL Total Bilirubin 0.4 0.2-1.0 mg/dL Aspartate Amino Transferase (AST) 34 13-40 U/L Alanine Aminotransferase (ALT) 21 7-40 U/L Alkaline Phosphatase 43 L 46-116 U/L Total Protein 6.1 5.7-8.2 g/dL Albumin 3.8 3.2-4.8 g/dL Platelet Estimate Adequate Hypochromasia (manual) Moderate Poikilocytosis (manual) Slig Anisocytosis (manual) Slight Microcytosis Moderate Target Cells Few Dona Cells Few Schistocytes Few Lactic Acid Level 1.4 0.4-2.0 mmol/L Test 03/05/24 15:50 03/05/24 15:05 03/05/24 05:52 03/05/24 02:55 Range/Units Urine Color Light-yellow Yellow Urine Clarity Clear Clear Urine pH 5.5 5.0-9.0 Urine Specific [place] 1.018 1.001-1.035 Urine Protein 1+ H Negative Urine Ketones Negative Negative Urine Blood 1+ H Negative /uL Urine Nitrite Negative Negative Urine Bilirubin Negative Negative Urine Urobilinogen Normal Negative mg/dL Urine Leukocyte Esterase Negative Negative /uL Urine RBC 1 0 - 3 /hpf Urine WBC 1 0 - 3 /hpf Urine Squamous Epithelial Cells None seen <5 /hpf Urine Bacteria Few H None Seen /hpf Urine Creatinine 113.12 30.0-125.0 mg/dL Urine Protein/Creatinine Ratio 0.55 Urine Sodium 101 40-220 mmol/L Urine Glucose 1+ H Normal mg/dL Urine Total Protein 62.3 H 1-14 mg/dL Urine Opiates Screen Neg NEGATIVE Urine Fentanyl Screen Neg NEGATIVE Urine Barbiturates Screen Neg NEGATIVE Urine Phencyclidine Screen Neg NEGATIVE Urine Amphetamines Screen Neg NEGATIVE Urine Benzodiazepines Screen Neg NEGATIVE Urine Cocaine Screen Neg NEGATIVE Urine Cannabinoids Screen Pos NEGATIVE Influenza Type A Antigen Negative Negative Influenza Type B Antigen Negative Negative SARS-CoV-2 Antigen (Rapid) Negative NEGATIVE Phosphorus Level 4.4 2.4-5.1 mg/dL Iron Level 15 L 65-175 ug/dL Total Iron Binding Capacity 220 L 250-425 ug/dL Percent Iron Saturation 6.8 L 20-55 % Ferritin 995.4 H 22-322 ng/mL Vitamin D 25-Hydroxy 92.1 30.0-100 ng/mL Troponin I High Sensitivity 18 </=54 ng/L Ovalocytes Few Prothrombin Time 11.3 9.3-11.8 sec Prothrombin Time INR 1.07 0.9-1.15 Activated Partial Thromboplast Time 21.2 L 24.5-34.5 SEC B-Type Natriuretic Peptide 71.78 0-100 pg/mL Parathyroid Hormone (Intact) 82.5 H 18.4-80.1 pg/mL Microbiology Date/Time Source Procedure Growth Status 03/05/24 20:55 Nose MRSA Screen - Final Complete 03/05/24 15:50 Urine - Midstream Clean Catch Urine Culture - Preliminary Resulted 03/05/24 12:55 Blood Blood Culture - Preliminary NO GROWTH AFTER 48 HOURS OF INCUBATION. Resulted Examination: GENERAL:Normal, HEENT:Normal, NECK:Normal, LUNGS:Abnormal, CVS:Abnormal, ABDOMEN:Abnormal, MSK:Abnormal, SKIN:Abnormal Problem List/Assessment/Plan Problems: (1) L1 vertebral fracture Assessment and Plan Lumbar 1 compression fracture biomechanically stable definitive treatment is a TLSO brace weight bear as tolerated with brace with physical therapy may f/u with primary care doctor to make appt to see me in my office Plan discussed with Plan discussed with: Patient MAURO PAYNE MD Mar 08, 2024 08:30
[2024-03-08 08:33] LABS: BUN/Creatinine Ratio 20.6 (10.0-20.0); Glucose 253 mg/dL (74-106)
[2024-03-08 08:34] LABS: Blood Urea Nitrogen 57 mg/dL (9-23)
--- NOTE | 2024-03-08 09:04 | ECG ---
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
--- NOTE | 2024-03-08 09:24 | ECG ---
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
--- NOTE | 2024-03-08 10:11 | DVHPN2 ---
Progress Note - Dictate Date Seen: Mar 08, 2024 Medical Necessity Reason Pt with a Central, PICC or Fol: No Subjective Patient resting comfortably, denies shortness of breath this morning vital signs Vital Sign Date Time Temp Pulse Resp B/P (MAP) Pulse Ox O2 Delivery O2 Flow Rate FiO2 03/08/24 09:48 101 122/72 03/08/24 09:21 97.8 18 95 97.8 03/08/24 09:20 3.0 32 03/08/24 06:07 Nasal Cannula* Total Intake and Output 03/07/24 03/07/24 03/08/24 15:00 23:00 07:00 Intake Total 700 ml 325 ml Output Total 550 ml 1000 ml 400 ml Balance -550 ml -300 ml -75 ml medications Current Medications Medications Dose Ordered Sig/Anish Route Start Time Stop Time Status Last Admin Dose Admin Nitroglycerin 0.4 mg Q5MINP PRN SL 03/05/24 11:45 Morphine Sulfate 2 mg Q30M PRN IV 03/05/24 11:45 Ceftriaxone Sodium 50 ml @ 100 mls/hr DAILY@09 IV 03/06/24 09:00 03/08/24 09:49 100 MLS/HR Ondansetron HCl 4 mg Q4HPRN PRN IV 03/05/24 11:45 03/07/24 23:59 4 MG Morphine Sulfate 2 mg Q4HPRN PRN IV 03/05/24 11:45 03/07/24 22:02 2 MG Acetaminophen/ Hydrocodone Bitart 1 tab Q4HPRN PRN PO 03/05/24 11:45 Cyclobenzaprine HCl 5 mg TID PO 03/05/24 14:00 03/08/24 06:05 5 MG Methylprednisolone Sodium Succinate 40 mg BID IV 03/05/24 22:00 03/08/24 09:49 40 MG Finasteride 5 mg DAILY PO 03/06/24 10:00 03/08/24 09:47 5 MG Tamsulosin HCl 0.4 mg QPM PO 03/05/24 18:00 03/07/24 17:58 0.4 MG Diagnostic Test (Pha) 1 strip ACHS 03/05/24 17:00 03/08/24 06:02 1 STRIP Insulin Human Regular ACHS SC 03/05/24 17:00 03/08/24 06:15 6 UNITS Dextrose 50 ml UD PRN IV 03/05/24 13:00 Levalbuterol HCl 0.625 mg Q6HR NEB 03/05/24 18:00 03/07/24 06:51 0.625 MG Ipratropium [place] 0.5 mg Q6HR NEB 03/05/24 18:00 03/08/24 06:07 0.5 MG Acetaminophen 650 mg Q4HP PRN PO 03/05/24 18:15 03/05/24 18:32 650 MG Pantoprazole Sodium 40 mg DAILY IV 03/06/24 10:00 03/08/24 09:47 40 MG Mycophenolate Mofetil 500 mg BID PO 03/06/24 10:00 03/07/24 21:50 500 MG Patient Own Medication 4 BID PO 03/06/24 10:00 03/07/24 21:51 4 Docusate Sodium 100 mg BIDPRN PRN PO 03/06/24 10:30 03/06/24 22:01 100 MG Metoprolol Tartrate 25 mg BID PO 03/06/24 22:00 03/08/24 09:48 25 MG Gabapentin 100 mg HS PO 03/06/24 22:00 03/07/24 21:49 100 MG objective gen: nad lungs: Occasional rhonchi cvs: no rub ext: no edema laboratory and microbiology Laboratory Tests 03/08/24 06:06 03/07/24 03:07 Test 03/08/24 06:06 Range/Units Serum Glucose 253 H 74-106 mg/dL Assessment/Plan Acute kidney injury superimposed 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 - currently has established care at [facility] - trough tacrolimus level pending, we will continue to follow Plan discussed with: Patient MONISHA REYES MD Mar 08, 2024 10:11
--- NOTE | 2024-03-08 16:13 | DVHPN2 ---
Progress Note - Dictate Date Seen: Mar 08, 2024 Medical Necessity Reason Pt with a Central, PICC or Fol: No Subjective On baseline 3 L oxygen via nasal cannula. Clinically stable. Participated with the physical therapy with walker. Pain is improved in his lower back vital signs Vital Sign Date Time Temp Pulse Resp B/P (MAP) Pulse Ox O2 Delivery O2 Flow Rate FiO2 03/08/24 12:43 97.6 89 19 127/74 (91) 97 97.6 03/08/24 11:39 Nasal Cannula* 3 32 Total Intake and Output 03/07/24 03/07/24 03/08/24 15:00 23:00 07:00 Intake Total 50 ml 700 ml 325 ml Output Total 550 ml 1000 ml 400 ml Balance -500 ml -300 ml -75 ml medications Current Medications Medications Dose Ordered Sig/Anish Route Start Time Stop Time Status Last Admin Dose Admin Nitroglycerin 0.4 mg Q5MINP PRN SL 03/05/24 11:45 Morphine Sulfate 2 mg Q30M PRN IV 03/05/24 11:45 Ondansetron HCl 4 mg Q4HPRN PRN IV 03/05/24 11:45 03/07/24 23:59 4 MG Morphine Sulfate 2 mg Q4HPRN PRN IV 03/05/24 11:45 03/07/24 22:02 2 MG Acetaminophen/ Hydrocodone Bitart 1 tab Q4HPRN PRN PO 03/05/24 11:45 Cyclobenzaprine HCl 5 mg TID PO 03/05/24 14:00 03/08/24 14:29 5 MG Finasteride 5 mg DAILY PO 03/06/24 10:00 03/08/24 09:47 5 MG Tamsulosin HCl 0.4 mg QPM PO 03/05/24 18:00 03/07/24 17:58 0.4 MG Diagnostic Test (Pha) 1 strip ACHS 03/05/24 17:00 03/08/24 11:37 1 STRIP Insulin Human Regular ACHS SC 03/05/24 17:00 03/08/24 11:42 3 UNITS Dextrose 50 ml UD PRN IV 03/05/24 13:00 Levalbuterol HCl 0.625 mg Q6HR NEB 03/05/24 18:00 03/08/24 11:39 0.625 MG Ipratropium [place] 0.5 mg Q6HR NEB 03/05/24 18:00 03/08/24 11:39 0.5 MG Acetaminophen 650 mg Q4HP PRN PO 03/05/24 18:15 03/05/24 18:32 650 MG Mycophenolate Mofetil 500 mg BID PO 03/06/24 10:00 03/08/24 10:44 500 MG Patient Own Medication 4 BID PO 03/06/24 10:00 03/08/24 10:45 4 Docusate Sodium 100 mg BIDPRN PRN PO 03/06/24 10:30 03/06/24 22:01 100 MG Metoprolol Tartrate 25 mg BID PO 03/06/24 22:00 03/08/24 09:48 25 MG Gabapentin 100 mg HS PO 03/06/24 22:00 03/07/24 21:49 100 MG Pantoprazole Sodium 40 mg DAILY@0600 PO 03/09/24 06:00 objective Comfortable in bed without distress. Son at bedside. HEENT neck supple no JVD. Heart regular rate and rhythm S1-S2. Lungs fair air movement without any wheezing. Abdomen soft positive bowel sounds. Extremities no edema. laboratory and microbiology Laboratory Tests 03/08/24 06:06 03/07/24 03:07 Test 03/08/24 06:06 Range/Units Serum Glucose 253 H 74-106 mg/dL Assessment/Plan Respiratory status has improved. Continue present supportive care and treatment as he is on. Continue physical therapy. We will arrange for home health and home PT and home oxygen. If he remains stable overnight discharge plan home tomorrow. Discussed with the patient and his nurse regarding care plan. Problems(with codes): (1) Atrial fibrillation (2) L1 vertebral fracture (3) Diabetes mellitus (4) Degenerative disc disease, lumbar (5) Compression fracture of lumbar vertebra with routine healing Plan discussed with: Patient, Other HERRERA ENRIQUEZ MD Mar 08, 2024 16:13
--- NOTE | 2024-03-08 20:12 | DVHPN ---
DATE: 03/08/2024 PULMONARY FOLLOWUP SUBJECTIVE: The patient was seen in the afternoon, doing well, lying flat in bed, no distress. Denies any significant cough or expectoration. He states he did ambulate a little bit in the room. Denies any orthopnea or PND. OBJECTIVE: VITAL SIGNS: Physical examination, afebrile, heart rate 88, respiratory rate 16, blood pressure 127/74, saturations are 97% on 3 liters. HEENT: Unremarkable. Tongue moist. CHEST EXAMINATION: Reveals bilateral rales, no wheezing. ABDOMEN: Soft, nontender. EXTREMITIES: No edema or clubbing. NEUROLOGIC: Awake and oriented. LABORATORY WORK: Lab work reviewed. No new labs from yesterday with BMP significant for BUN 57, creatinine 2.7. Cultures unremarkable. No new radiological report. ASSESSMENT AND PLAN: The patient appears to be doing better. Plan is to ambulate. Continue current antibiotics and med nebs. Continue steroids. Patient evaluated for need for supplemental oxygen if room air saturations less than 90, would require oxygen supplementation. Plan discussed with the patient. Aniket Simon MD /RUB TID: [id number] RECEIPT: [id number] cc:
[2024-03-09] VITALS (14 sets, daily range): BP systolic 116–140; BP diastolic 60–78; PULSE 68–110; RESP 14–20; TEMP 97.7–98.4; O2SAT 96–100
[2024-03-09] MEDS: PANTOPRAZOLE 40 MG TAB PO SCH (05:06)
[2024-03-09 07:03] LABS: Basophils # (auto) 0 10 ^3/uL (0-0.2); Eosinophils # (auto) 0 10 ^3/uL (0-0.8)
[2024-03-09 07:09] LABS: Chloride 106 mmol/L (98-107); Potassium 4.7 mmol/L (3.5-5.1); Sodium 138 mmol/L (136-145)
[2024-03-09 07:10] LABS: Anion Gap 8 (5-15); Calcium 8.9 mg/dL (8.7-10.4); Carbon Dioxide 24 mmol/L (20-31)
[2024-03-09 07:15] LABS: BUN/Creatinine Ratio 17.6 (10.0-20.0); Glucose 162 mg/dL (74-106)
[2024-03-09 07:16] LABS: Blood Urea Nitrogen 44 mg/dL (9-23)
[2024-03-09 07:28] LABS: Basophils % (auto) 0.8 % (0.0-2.0); Eosinophils % (auto) 0.1 % (0.0-7.0); Hematocrit 28.4 % (41.0-53.0); Hemoglobin 8.4 g/dL (13.5-17.5); Lymphocytes # (auto) 0.9 10 ^3/uL (0.4-5.4); Lymphocytes % (auto) 14.3 % (10.0-50.0); Mean Corpuscular Hemoglobin 18.9 pg (28.0-32.0); Mean Corpuscular Hgb Conc. 29.7 g/dL (32.0-36.0); Mean Corpuscular Volume 63.9 fL (80.0-100.0); Monocytes # (auto) 0.5 10 ^3/uL (0-1.3); Monocytes % (auto) 8.8 % (0.0-12.0); Neutrophils # (auto) 4.6 10 ^3/uL (1.6-8.6); Nucleated Red Blood Cells % 0.3 %; Platelet Count (auto) 138 10^3/uL (140-450); Red Blood Cells 4.44 10^6/uL (4.5-5.90); Red Cell Distribution Width 18.9 % (11.8-14.3)
[2024-03-09] MEDS ORDERED: CALC1TAB46 PO (14:25)
[2024-03-09] MEDS ORDERED: HYDR-4902 PO (14:25)
[2024-03-09] MEDS ORDERED: CYCL-837 PO (14:25)
--- NOTE | 2024-03-09 14:30 | DVHDS2 ---
Discharge Summary Date of Admission Mar 05, 2024 at 11:32 Date of Discharge: Mar 09, 2024 Labs/Diagnostic Data: Laboratory Results Test 03/09/24 11:26 03/09/24 06:20 03/07/24 03:07 03/06/24 03:28 POC Glucose 245 mg/dl (70-106) White Blood Count 6.0 10^3/uL (4.4-10.8) Red Blood Count 4.44 10^6/uL (4.5-5.90) Hemoglobin 8.4 g/dL (13.5-17.5) Hematocrit 28.4 % (41.0-53.0) Mean Corpuscular Volume 63.9 fL (80.0-100.0) Mean Corpuscular Hemoglobin 18.9 pg (28.0-32.0) Mean Corpuscular Hemoglobin Concent 29.7 g/dL (32.0-36.0) Red Cell Distribution Width 18.9 % (11.8-14.3) Platelet Count 138 10^3/uL (140-450) Mean Platelet Volume 8.1 fL (6.9-10.8) Neutrophils (%) (Auto) 76.0 % (37.0-80.0) Lymphocytes (%) (Auto) 14.3 % (10.0-50.0) Monocytes (%) (Auto) 8.8 % (0.0-12.0) Eosinophils (%) (Auto) 0.1 % (0.0-7.0) Basophils (%) (Auto) 0.8 % (0.0-2.0) Neutrophils # (Auto) 4.6 10 ^3/uL (1.6-8.6) Lymphocytes # (Auto) 0.9 10 ^3/uL (0.4-5.4) Monocytes # (Auto) 0.5 10 ^3/uL (0-1.3) Eosinophils # (Auto) 0 10 ^3/uL (0-0.8) Basophils # (Auto) 0 10 ^3/uL (0-0.2) Nucleated Red Blood Cells 0.3 % Sodium Level 138 mmol/L (136-145) Potassium Level 4.7 mmol/L (3.5-5.1) Chloride Level 106 mmol/L (98-107) Carbon Dioxide Level 24 mmol/L (20-31) Anion Gap 8 (5-15) Blood Urea Nitrogen 44 mg/dL (9-23) Creatinine 2.50 mg/dL (0.700-1.30) Glomerular Filtration Rate Calc 26 mL/min (>90) BUN/Creatinine Ratio 17.6 (10.0-20.0) Serum Glucose 162 mg/dL (74-106) Calcium Level 8.9 mg/dL (8.7-10.4) Magnesium Level 2.1 mg/dL (1.6-2.6) Total Bilirubin 0.4 mg/dL (0.2-1.0) Aspartate Amino Transferase (AST) 34 U/L (13-40) Alanine Aminotransferase (ALT) 21 U/L (7-40) Alkaline Phosphatase 43 U/L (46-116) Total Protein 6.1 g/dL (5.7-8.2) Albumin 3.8 g/dL (3.2-4.8) Platelet Estimate Adequate Hypochromasia (manual) Moderate Poikilocytosis (manual) Slig Anisocytosis (manual) Slight Microcytosis Moderate Target Cells Few Shields Cells Few Schistocytes Few Lactic Acid Level 1.4 mmol/L (0.4-2.0) Tacrolimus (LC/MS/MS) <0.5 ng/mL (.) Test 03/05/24 15:50 03/05/24 15:05 03/05/24 05:52 03/05/24 02:55 Urine Color Light-yellow (Yellow) Urine Clarity Clear (Clear) Urine pH 5.5 (5.0-9.0) Urine Specific [place] 1.018 (1.001-1.035) Urine Protein 1+ (Negative) Urine Ketones Negative (Negative) Urine Blood 1+ /uL (Negative) Urine Nitrite Negative (Negative) Urine Bilirubin Negative (Negative) Urine Urobilinogen Normal mg/dL (Negative) Urine Leukocyte Esterase Negative /uL (Negative) Urine RBC 1 /hpf (0 - 3) Urine WBC 1 /hpf (0 - 3) Urine Squamous Epithelial Cells None seen /hpf (<5) Urine Bacteria Few /hpf (None Seen) Urine Creatinine 113.12 mg/dL (30.0-125.0) Urine Protein/Creatinine Ratio 0.55 Urine Sodium 101 mmol/L (40-220) Urine Glucose 1+ mg/dL (Normal) Urine Total Protein 62.3 mg/dL (1-14) Urine Opiates Screen Neg (NEGATIVE) Urine Fentanyl Screen Neg (NEGATIVE) Urine Barbiturates Screen Neg (NEGATIVE) Urine Phencyclidine Screen Neg (NEGATIVE) Urine Amphetamines Screen Neg (NEGATIVE) Urine Benzodiazepines Screen Neg (NEGATIVE) Urine Cocaine Screen Neg (NEGATIVE) Urine Cannabinoids Screen Pos (NEGATIVE) Influenza Type A Antigen Negative (Negative) Influenza Type B Antigen Negative (Negative) SARS-CoV-2 Antigen (Rapid) Negative (NEGATIVE) Phosphorus Level 4.4 mg/dL (2.4-5.1) Iron Level 15 ug/dL (65-175) Total Iron Binding Capacity 220 ug/dL (250-425) Percent Iron Saturation 6.8 % (20-55) Ferritin 995.4 ng/mL (22-322) Vitamin D 25-Hydroxy 92.1 ng/mL (30.0-100) Troponin I High Sensitivity 18 ng/L (</=54) Ovalocytes Few Prothrombin Time 11.3 sec (9.3-11.8) Prothrombin Time INR 1.07 (0.9-1.15) Activated Partial Thromboplast Time 21.2 SEC (24.5-34.5) B-Type Natriuretic Peptide 71.78 pg/mL (0-100) Parathyroid Hormone (Intact) 82.5 pg/mL (18.4-80.1) Other Laboratory Tests 03/09/24 06:20 Final Diagnosis/Problems List L1 vertebral fx, acute resp.failure Discharge Disposition: Home with Health Services Discharge Instruct/Medications Diet: Consistent carbohydrate, Cardiac 2g Na,low cholest Activity: No Restrictions, As Tolerated Follow Up/Referral: PCP 2 weeks for osteoporosis management and your Lung doctor as scheduled Medications: as prescribed and home medications Discharge Statement: "Patient was advised to return to the ER or call 911 if any headaches, dizziness, shortness of breath, chest pain, abdominal pain, bleeding, fevers, or worsening of medical condition. Patient was counseled about treatment plan, medications, possible side effects, patientverbalized understanding. All questions were answered to the best of my ability. This discharge took greater then 30 minutes in planning, reviewing documentation, counseling the patient, and discussing with other team members." ASSESSMENT ASSESSMENT Assessment L1 vertebral fx, acute resp.failure HERRERA ENRIQUEZ MD Mar 09, 2024 14:30
--- NOTE | 2024-03-09 17:08 | DVHPN2 ---
Progress Note Date Seen: Mar 09, 2024 Medical Necessity Reason Pt with a Central, PICC or Fol: No Subjective Patient reports: No new complaints Review of Systems: HEENT:Normal, CVS:Normal, RESPIRATORY:Normal, GI:Normal, :Normal, MSK:Normal, NEURO:Normal Objective vital signs Vital Sign Date Time Temp Pulse Resp B/P (MAP) Pulse Ox O2 Delivery O2 Flow Rate FiO2 03/09/24 13:00 98.3 89 18 140/65 (90) 96 98.3 03/09/24 11:29 Nasal Cannula 3.0 03/09/24 11:29 32 Total Intake and Output 03/08/24 03/08/24 03/09/24 15:00 23:00 07:00 Intake Total 50 ml 750 ml Output Total 750 ml 200 ml Balance 50 ml 0 ml -200 ml medications Current Medications Medications Dose Ordered Sig/Anish Route Start Time Stop Time Status Last Admin Dose Admin Nitroglycerin 0.4 mg Q5MINP PRN SL 03/05/24 11:45 Morphine Sulfate 2 mg Q30M PRN IV 03/05/24 11:45 Ondansetron HCl 4 mg Q4HPRN PRN IV 03/05/24 11:45 03/07/24 23:59 4 MG Morphine Sulfate 2 mg Q4HPRN PRN IV 03/05/24 11:45 03/09/24 11:19 2 MG Acetaminophen/ Hydrocodone Bitart 1 tab Q4HPRN PRN PO 03/05/24 11:45 Cyclobenzaprine HCl 5 mg TID PO 03/05/24 14:00 03/09/24 05:08 5 MG Finasteride 5 mg DAILY PO 03/06/24 10:00 03/09/24 11:13 5 MG Tamsulosin HCl 0.4 mg QPM PO 03/05/24 18:00 03/08/24 17:38 0.4 MG Diagnostic Test (Pha) 1 strip ACHS 03/05/24 17:00 03/09/24 11:33 1 STRIP Insulin Human Regular ACHS SC 03/05/24 17:00 03/09/24 11:33 4 UNITS Dextrose 50 ml UD PRN IV 03/05/24 13:00 Levalbuterol HCl 0.625 mg Q6HR NEB 03/05/24 18:00 03/09/24 11:29 0.625 MG Ipratropium [place] 0.5 mg Q6HR NEB 03/05/24 18:00 03/09/24 11:29 0.5 MG Acetaminophen 650 mg Q4HP PRN PO 03/05/24 18:15 03/05/24 18:32 650 MG Mycophenolate Mofetil 500 mg BID PO 03/06/24 10:00 03/09/24 11:14 500 MG Patient Own Medication 4 BID PO 03/06/24 10:00 03/09/24 11:15 4 Docusate Sodium 100 mg BIDPRN PRN PO 03/06/24 10:30 03/06/24 22:01 100 MG Metoprolol Tartrate 25 mg BID PO 03/06/24 22:00 03/09/24 11:14 25 MG Gabapentin 100 mg HS PO 03/06/24 22:00 03/08/24 22:12 100 MG Pantoprazole Sodium 40 mg DAILY@0600 PO 03/09/24 06:00 03/09/24 05:06 40 MG laboratory and microbiology Laboratory Tests 03/09/24 06:20 Test 03/09/24 06:20 Range/Units Serum Glucose 162 H 74-106 mg/dL Microbiology Date/Time Source Procedure Growth Status 03/05/24 20:55 Nose MRSA Screen - Final Complete 03/05/24 15:50 Urine - Midstream Clean Catch Urine Culture - Final Complete 03/05/24 12:55 Blood Blood Culture - Preliminary NO GROWTH AFTER 72 HOURS OF INCUBATION. 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
--- NOTE | 2024-03-09 19:22 | DVHPN2 ---
Progress Note - Dictate Date Seen: Mar 09, 2024 Medical Necessity Reason Pt with a Central, PICC or Fol: No Subjective Patient seen and examined at bedside. Remains on supplemental oxygen Overnight events reviewed. vital signs Vital Sign Date Time Temp Pulse Resp B/P (MAP) Pulse Ox O2 Delivery O2 Flow Rate FiO2 03/09/24 17:16 92 03/09/24 17:00 98.2 20 119/60 (79) 98 98.2 03/09/24 11:29 Nasal Cannula 3.0 03/09/24 11:29 32 Total Intake and Output 03/08/24 03/08/24 03/09/24 15:00 23:00 07:00 Intake Total 50 ml 750 ml Output Total 750 ml 200 ml Balance 50 ml 0 ml -200 ml objective Gen.: Patient lying in bed in no apparent distress. On supplemental oxygen. Head: Normocephalic, atraumatic. Eyes: EOMI/PERRLA. Ears: Normal hearing. Normal anatomy. Neck/trachea: Trachea midline, supple. Nose: Normal external anatomy. Mouth: Moist mucous membranes. Chest: Decreased air entry bilaterally. No wheezing or rhonchi. Cardiovascular: Positive S1, positive S2. Regular rate and rhythm. Abdomen: Positive bowel sounds in all 4 quadrants. Soft, non-tender, non- distended. : Deferred. Rectal: Deferred. Skin: Warm, dry. Intact. Extremities: 2+ radial pulses bilaterally. No lower extremity edema. Neuro: Awake, alert, oriented x3. No gross motor or sensory deficits. Cranial nerves II through XII intact. Gait not assessed. laboratory and microbiology Laboratory Tests 03/09/24 06:20 Test 03/09/24 06:20 Range/Units Serum Glucose 162 H 74-106 mg/dL Assessment/Plan Impression: Acute on chronic hypoxic respiratory failure secondary to acute exacerbation of COPD and atrial fibrillation with RVR COPD exacerbation, improved Pleural effusion Atelectasis Emphysema Pulmonary hypertension RVSP 59 mmHg Atrial fibrillation with RVR L1 vertebral fracture L5 vertebral fracture Hepatic cysts Events: Remains on 3 LPM NC Taper O2 as tolerated Echo report reviewed. EF 55%. RVSP 59 mmHg Recommend outpatient follow up for further management of pulm HTN. Labs and imaging reviewed. Rest of plan as noted below Plan: CT chest report and images reviewed. Mild dilatation of pulmonary trunk at 35 mm. Follow up echocardiogram report to assess right ventricular systolic pressure for pulmonary hypertension. Trace bilateral pleural effusions tracking along the fissures with scattered bilateral lung atelectasis/scarring. Hyperinflation with emphysematous changes in the right lower lobe. V/Q scan shows asymmetric decreased perfusion in the right lung: Mismatched defect present in the right lung. If there is high clinical suspicion for pulmonary embolism, recommend further evaluation with CTA chest. Supplemental oxygen Keep O2 saturation above 92%. Incentive spirometry Continue antibiotics Follow up cultures Bronchodilators IV steroids Taper as tolerated Diuresis euvolemia Monitor ins and outs. Monitor renal function. Monitor electrolytes. Supplement as necessary. GI prophylaxis-Pepcid DVT prophylaxis-Lovenox Prognosis: Poor given multiple comorbidities. Rest of plan per hospitalist and other consultants. Thank you Dr. Briceno for allowing me to participate in this patient's care. Further recommendations will depend on patient's clinical course. Please do not hesitate to contact me if you have any questions or concerns. This medical document was created using an electronic medical record system with [email or web address] dictation system. Although this document has been carefully reviewed, there may still be some phonetic and typographical errors. These areas are purely typographical due to imperfections of the software programs, and do not reflect any compromise in the patient's medical care. Plan discussed with: Other (RN, MD) LIOR ALVAREZ MD Mar 09, 2024 19:22
== END 2024-03-09 18:15 | disposition home health service (06) | DRG 189 ==
LOC: ER 01:30 → EDUNIT# 01:30 → EDBD 01:30 → TELE 11:32 → TELE-EAST 13:23 → ICU WEST 17:59 → TELE-CENTR 03-07 04:25
PROVIDERS: ADMIT Hospitalist; ATTEND Hospitalist
DX: J96.00 Acute respiratory failure, unspecified whether with hypoxia or hypercapnia (principal); S32.059A Unspecified fracture of fifth lumbar vertebra, initial encounter for closed fracture; N17.9 Acute kidney failure, unspecified; J98.11 Atelectasis; J44.1 Chronic obstructive pulmonary disease with (acute) exacerbation; J44.0 Chronic obstructive pulmonary disease with (acute) lower respiratory infection; J90 Pleural effusion, not elsewhere classified; N18.4 Chronic kidney disease, stage 4 (severe); S32.019A Unspecified fracture of first lumbar vertebra, initial encounter for closed fracture; Z94.2 Lung transplant status; I48.20 Chronic atrial fibrillation, unspecified; Z20.822 Contact with and (suspected) exposure to COVID-19; D50.9 Iron deficiency anemia, unspecified; J43.9 Emphysema, unspecified; E11.22 Type 2 diabetes mellitus with diabetic chronic kidney disease; I27.20 Pulmonary hypertension, unspecified; M47.816 Spondylosis without myelopathy or radiculopathy, lumbar region; N28.1 Cyst of kidney, acquired; E78.5 Hyperlipidemia, unspecified; W18.39XA Other fall on same level, initial encounter; E11.40 Type 2 diabetes mellitus with diabetic neuropathy, unspecified; M81.0 Age-related osteoporosis without current pathological fracture; K76.89 Other specified diseases of liver; M51.369 Other intervertebral disc degeneration, lumbar region without mention of lumbar back pain or lower extremity pain; I12.9 Hypertensive chronic kidney disease with stage 1 through stage 4 chronic kidney disease, or unspecified chronic kidney disease; Z99.81 Dependence on supplemental oxygen; Z87.891 Personal history of nicotine dependence; Y93.89 Activity, other specified; Y92.89 Other specified places as the place of occurrence of the external cause; Y99.8 Other external cause status; Z82.49 Family history of ischemic heart disease and other diseases of the circulatory system; Z82.3 Family history of stroke; Z80.9 Family history of malignant neoplasm, unspecified; Z83.3 Family history of diabetes mellitus; Z79.60 Long term (current) use of unspecified immunomodulators and immunosuppressants
CPT/HCPCS: 36415; 71045; 71250; 72131; 76775; 78582; 80048; 80053; 80197; 80307; 81001; 82306; 82570; 82728; 82962; 83540; 83550; 83605; 83735; 83880; 83970; 84100; 84156; 84300; 84484; 85025; 85610; 85730; 87040; 87081; 87086; 87426; 87804; 93005; 93306; 93970; 94640; 97110; 97116; 97162; 97530; G0378; J1815; J2405; J2470; J7517

== ENCOUNTER 2024-03-12 02:58 | Inpatient (IN) | payer OTHER ==
[2024-03-12] VITALS (8 sets, daily range): BP systolic 116–129; BP diastolic 66–79; PULSE 53–111; RESP 16–19; TEMP 97.5–98.2; O2SAT 94–100
[~2024-03-12] VITALS: Ht 175.3 cm; Wt 98.2 kg
[~2024-03-12 02:58] MED LIST changes: +CALC1TAB46 PO; +CYCL-837 PO; -DEXA6TAB6 PO; -DOXY100C79 PO; -ENOX30IN5 SC; -FLUC200T PO; +HYDR-4902 PO; -LEVO250T19 PO; -SACC250C PO
--- NOTE | 2024-03-12 03:38 | ED.PDOC ---
History of Present Illness HPI Comments 78 y/o M, with a Hx of AFIB, COPD w/home O2, DM, HLD, HTN, liver disease, bilateral lung transplant, and former tobacco use, is BIBA for c/o generalized weakness, polyphagia, and polydipsia for 1 day. 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 Patient was found on scene by EMS staff with a blood glucose of 384, a SpO2 of 80%RA, a blood pressure of 80/60, and in AFIB RVR at a rate in 130. En route, patient was placed on 4LPM O2 via NC. Upon arrival to ED, patient had a SpO2 of 96% 4LPM, respiratory rate of 18, pulse rate of 89, blood pressure of 140/65, and a temperature of 98.3F. Patient denies having any shortness of breath, palpitations, chest pain, polyuria, or other associated symptoms or modifiers at this time. Chief Complaint: General Weakness Time Seen by MD: 03:00 Primary Care Provider: LUIS ANTONIO Reviewed Notes: Nurses Notes, Script Artist Notes, Medications, Allergies Allergies: Coded Allergies: No Known Drug Allergy (Verified Allergy, Unknown, 08/25/15) Home Meds Active Scripts Hydrocodone-Acetaminophen (Hydrocodone Bitartrate/AC 5-325 mg) 1 Tab Tab, 1 TAB PO Q8HPRN PRN, #14 TAB Prov:HERRERA ENRIQUEZ MD 03/09/24 Calcium Citrate-Vitamin D (Calcitrate Plus D 315-200 mg-Unit) 1 Tab Tab, 1 TAB PO BID, #90 TAB Prov:HERRERA ENRIQUEZ MD 03/09/24 Cyclobenzaprine Hcl (Cyclobenzaprine Hcl) 5 Mg Tab, 1 TAB PO TID, #30 TAB Prov:HERRERA ERNIQUEZ MD 03/09/24 Albuterol Sulfate (VENTOLIN MDI) 90 Mcg Ih, 2 PUFF IN Q4HPRN PRN, #1 INHALER Prov:REINALDO KRAUS MD 03/25/22 Reported Medications Oxycodone Hcl (OXYCODONE HCL) 5 Mg Tb, 10 MG PO Q4HPRN PRN for MODERATE PAIN 12/31/16 Tamsulosin Hcl (Tamsulosin Hcl) 0.4 Mg Cap, 0.4 MG PO QPM for 30 Days, MG 12/31/16 Tacrolimus (ASTAGRAF XL) 1 Mg Cap, 3 MG PO BID, CAP 12/31/16 Prednisone (PREDNISONE) 5 Mg Tb, 10 MG PO DAILY 12/31/16 Pantoprazole Sodium (PANTOPRAZOLE SODIUM) 40 Mg Inj, 40 MG PO DAILY, INJ 12/31/16 Mycophenolate Mofetil (Cellcept) 500 Mg Tab, 2 TAB PO BID, #360 TAB 3 Refills 12/31/16 Multiple Vitamin (Multivitamins) Cap, 1 CAP PO DAILY, #30 CAP 3 Refills 12/31/16 Insulin Detemir (Levemir Flextouch) 100 Unit/Ml Inj, 100 UNIT SC HS, INJ 12/31/16 Gabapentin (Gabapentin) 100 Mg Cap, 100 MG PO TID 12/31/16 Finasteride (Finasteride) 5 Mg Tab, 5 MG PO HS for 30 Days, MG 12/31/16 Entecavir Monohydrate (Entecavir) 0.5 Mg Tab, 0.5 MG PO HS, TAB 12/31/16 Atorvastatin Calcium (ATORVASTATIN CALCIUM) 20 Mg Tab, 20 MG PO HS, TAB 12/31/16 Discontinued Reported Medications Enoxaparin Sodium (Enoxaparin Sodium) 30 Mg/0.3 Ml Inj, 30 MG SC HS, INJ 12/31/16 Discontinued Scripts Doxycycline (Monohydrate) (Doxycycline) 100 Mg Cap, 100 MG PO BID, #14 CAP Prov:REINALDO KRAUS MD 03/25/22 Dexamethasone (Decadron) 6 Mg Tab, 6 MG PO DAILY@BREAKFAST, #8 TAB Prov:REINALDO KRAUS MD 03/25/22 Yeast (S. Boulardii)(S. Cerevi (Florastor) 250 Mg Cap, 250 MG PO DAILY, #7 CAP Prov:CATHERINE VALDES MD 01/03/17 Levofloxacin (Levaquin) 250 Mg Tab, 250 MG PO DAILY, #5 TAB Prov:CATHERINE VALDES MD 01/03/17 Fluconazole (Diflucan) 200 Mg Tab, 1 TAB PO DAILY, #7 TAB Prov:CATHERINE VALDES MD 01/03/17 Information Source: Patient, Emergency Med Personnel Mode of Arrival: EMS Severity: Moderate Timing: Days Duration: Since onset Past Medical History PAST MEDICAL HISTORY: AFIB, COPD (w/home O2), DM, High Lipids, HTN, Liver Surgical History (Other): bilateral lung transplant Family History Family History: Family hx of Cancer Social History Smoker: Non-Smoker, Quit Greater Than 1 Year Alcohol: Denies ETOH Use Drugs: Denies Drug Use Lives In: Home Constitutional: denies: chills, diaphoresis, fatigue, fever, malaise, sweats, weakness, others EENTM: denies: blurred vision, double vision, ear bleeding, ear discharge, ear drainage, ear pain, ear ringing, eye pain, eye redness, hearing loss, mouth pain, mouth swelling, nasal discharge, nose bleeding, nose congestion, nose pain, photophobia, tearing, throat pain, throat swelling, voice changes, others Respiratory: denies: cough, hemoptysis, orthopnea, SOB at rest, shortness of breath, SOB with excertion, stridor, wheezing, others Cardiovascular: denies: chest pain, dizzy spells, diaphoresis, Dyspnea on exertion, edema, irregular heart beat, left arm pain, lightheadedness, palpitations, PND, syncope, others Gastrointestinal: denies: abdomen distended, abdominal pain, blood streaked bowels, constipated, diarrhea, dysphagia, difficulty swallowing, hematemesis, melena, nausea, poor appetite, poor fluid intake, rectal bleeding, rectal pain, vomiting, others Genitourinary: denies: burning, dysuria, flank pain, frequency, hematuria, incontinence, penile discharge, penile sore, pain, testicle pain, testicle swelling, urgency, others Neurological: reports: weakness; denies: dizziness, fainting, headache, left sided numbness, left sided weakness, numbness, paresthesia, pre-existing deficit, right sided numbness, right sided weakness, seizure, speech problems, tingling, tremors, others Musculoskeletal: denies: back pain, gout, joint pain, joint swelling, muscle pain, muscle stiffness, neck pain, others Integumetry: denies: bruises, change in color, change in hair/nails, dryness, laceration, lesions, lumps, rash, wounds, others Allergic/Immunocompromised: denies: Difficulty Healing, Frequent Infections, Hives, Itching, others Hematologic/Lymphatic: denies: anemia, blood clots, easy bleeding, easy bruising, swollen glands, others Endocrine: denies: excessive hunger, excessive sweating, excessive thirst, excessive urination, flushing, intolerance to cold, intolerance to heat, unexplained weight gain, unexplained weight loss, others Psychiatric: denies: anxiety, bipolar disorder, depression, hopeless, panic disorder, schizophrenia, sleepless, suicidal, others All Other Systems: Reviewed and Negative Physical Exam General Appearance: No Apparent Distress, Other (chronically ill-appearing ) HEENT: Normal ENT Inspection, Pharynx Normal, TMs Normal Neck: Full Range of Motion, Non-Tender, Normal, Normal Inspection Respiratory: Chest Non-Tender, Lungs Clear, No Accessory Muscle Use, No Respiratory Distress, Normal Breath Sounds Cardiovascular: No Edema, No JVD, No Murmur, No Gallop, Normal Peripheral Pulses, Regular Rate/Rhythm Breast Exam: Deferred Gastrointestinal: No Organomegaly, Non Tender, No Pulsatile Mass, Normal Bowel Sounds, Soft Genitalia: Deferred Pelvic: Deferred Rectal: Deferred Extremities: No calf tenderness, Normal capillary refill, Normal inspection, Normal range of motion, Non-tender, No pedal edema Musculoskeletal : Apperance: Normal Neurologic: Alert, plant physiologist II-XII nml as Tested, No Motor Deficits, Normal Affect, Normal Mood, No Sensory Deficits Cerebellar Function: Normal Reflexes: Normal Skin: Dry, Normal Color, Warm Lymphatic: No Adenopathy Was a procedure done? Was a procedure done?: No EKG EKG : Pulse Rate (adult): 128 [place]: Normal Cardiac Rhythm: ST Block: None Hypertrophy: None ST: Normal Differential Dx Considerations may include: hyperglycemia, electrolyte imbalance, dehydration, malnutrition, viral syndrome X-Ray, Labs, Meds, VS Vital Signs Date Time Temp Pulse Resp B/P (MAP) Pulse Ox O2 Delivery O2 Flow Rate FiO2 03/12/24 04:41 110 19 98 Nasal Cannula* 2 28 03/12/24 03:38 128 03/12/24 03:25 98.2 112 20 105/61 (76) 95 98.2 03/12/24 03:08 98.4 130 22 114/58 (76) 80 03/12/24 03:01 128 Lab Test 03/12/24 04:20 03/12/24 03:46 03/12/24 03:15 Range/Units Troponin I High Sensitivity 13 16 </=54 ng/L Urine Color Light-yellow Yellow Urine Clarity Clear Clear Urine pH 5.5 5.0-9.0 Urine Specific [place] 1.016 1.001-1.035 Urine Protein Trace H Negative Urine Ketones 1+ H Negative Urine Blood Negative Negative /uL Urine Nitrite Negative Negative Urine Bilirubin Negative Negative Urine Urobilinogen Normal Negative mg/dL Urine Leukocyte Esterase Negative Negative /uL Urine RBC 1 0 - 3 /hpf Urine WBC 1 0 - 3 /hpf Urine Squamous Epithelial Cells Few <5 /hpf Urine Bacteria None seen None Seen /hpf Urine Glucose 4+ H Normal mg/dL White Blood Count 7.6 # 4.4-10.8 10^3/uL Red Blood Count 4.56 4.5-5.90 10^6/uL Hemoglobin 8.6 L 13.5-17.5 g/dL Hematocrit 28.5 L 41.0-53.0 % Mean Corpuscular Volume 62.5 L 80.0-100.0 fL Mean Corpuscular Hemoglobin 18.9 L 28.0-32.0 pg Mean Corpuscular Hemoglobin Concent 30.3 L 32.0-36.0 g/dL Red Cell Distribution Width 18.6 H 11.8-14.3 % Platelet Count 181 140-450 10^3/uL Mean Platelet Volume 8.3 6.9-10.8 fL Neutrophils (%) (Auto) 79.2 37.0-80.0 % Lymphocytes (%) (Auto) 14.1 10.0-50.0 % Monocytes (%) (Auto) 5.3 0.0-12.0 % Eosinophils (%) (Auto) 0.3 0.0-7.0 % Basophils (%) (Auto) 1.1 0.0-2.0 % Neutrophils # (Auto) 6.0 1.6-8.6 10 ^3/uL Lymphocytes # (Auto) 1.1 0.4-5.4 10 ^3/uL Monocytes # (Auto) 0.4 0-1.3 10 ^3/uL Eosinophils # (Auto) 0 0-0.8 10 ^3/uL Basophils # (Auto) 0.1 0-0.2 10 ^3/uL Nucleated Red Blood Cells 0.4 % Sodium Level 137 136-145 mmol/L Potassium Level 5.3 H 3.5-5.1 mmol/L Chloride Level 105 98-107 mmol/L Carbon Dioxide Level 22 20-31 mmol/L Anion Gap 10 5-15 Blood Urea Nitrogen 48 H 9-23 mg/dL Creatinine 2.99 H 0.700-1.30 mg/dL Glomerular Filtration Rate Calc 21 >90 mL/min BUN/Creatinine Ratio 16.1 10.0-20.0 Serum Glucose 399 #H 74-106 mg/dL Calcium Level 9.6 8.7-10.4 mg/dL B-Type Natriuretic Peptide 85.67 0-100 pg/mL Current Medications Medications (Trade) Dose Ordered Sig/Anish Route Start Time Stop Time Status Last Admin Sodium Chloride 1,000 ml @ 1,000 mls/hr Q1H ONCE IV 03/12/24 03:15 03/12/24 04:14 DC 03/12/24 03:49 Time of 1ST Reevaluation: 03:30 Reevaluation 1ST: Unchanged Patient Education/Counseling: Diagnosis, Treatment Family Education/Counseling: No Family Present Departure 1 Departure Time of Disposition: 05:37 (Patient with a pneumonia and new oxygen requirement. We will admit patient for further workup) Impression: Primary Impression: Pneumonia Qualified Codes: J18.9 - Pneumonia, unspecified organism Additional Impressions: Hypoxia Weakness Disposition: 09 ADMITTED INPATIENT Admit to: Med Surg Condition: Serious Critical Care Note Critical Care Time?: Yes Critical care comment: Acute hypoxia Authorized and Performed by: Lizzie Park MD Total critical care time: Approximately 38 minutes Due to a high probability of clinically significant, life threatening deterioration, the patient required my highest level of preparedness to intervene emergently and I personally spent this critical care time directly and personally managing the patient. This critical care time included obtaining a history; examining the patient; pulse oximetry; ordering and review of studies; arranging urgent treatment with development of a management plan; evaluation of patient's response to treatment; frequent reassessment; and, discussions with other providers. This critical care time was performed to assess and manage the high probability of imminent, life-threatening deterioration that could result in multi-organ failure. It was exclusive of separately billable procedures and treating other patients and teaching time. Please see my other sections and the rest of the note for further information on patient assessment and treatment. Stability Stability form required: No Heart Score Heart Score: Heart Score Response (Comments) Value History N/A 0 EKG N/A 0 Age N/A 0 Risk Factors N/A 0 Troponin N/A 0 Total 0 I personally scribed for LIZZIE PARK MD ([email or web address]) on 03/12/24 at 03:38. Electronically submitted by Carlos Newberry ([email or web address]). LIZZIE PARK MD Mar 12, 2024 03:38
[2024-03-12] MEDS: SODIUM CHLORIDE 0.9% 1,000 ML IV ONE (03:49)
[2024-03-12 03:52] LABS: Basophils # (auto) 0.1 10 ^3/uL (0-0.2); Basophils % (auto) 1.1 % (0.0-2.0); Eosinophils # (auto) 0 10 ^3/uL (0-0.8); Eosinophils % (auto) 0.3 % (0.0-7.0); Hematocrit 28.5 % (41.0-53.0); Hemoglobin 8.6 g/dL (13.5-17.5); Lymphocytes # (auto) 1.1 10 ^3/uL (0.4-5.4); Lymphocytes % (auto) 14.1 % (10.0-50.0); Mean Corpuscular Hemoglobin 18.9 pg (28.0-32.0); Mean Corpuscular Hgb Conc. 30.3 g/dL (32.0-36.0); Mean Corpuscular Volume 62.5 fL (80.0-100.0); Monocytes # (auto) 0.4 10 ^3/uL (0-1.3); Monocytes % (auto) 5.3 % (0.0-12.0); Neutrophils % (auto) 79.2 % (37.0-80.0); Nucleated Red Blood Cells % 0.4 %; Platelet Count (auto) 181 10^3/uL (140-450); Red Blood Cells 4.56 10^6/uL (4.5-5.90); Red Cell Distribution Width 18.6 % (11.8-14.3); White Blood Cell 7.6 10^3/uL (4.4-10.8)
[2024-03-12 03:55] LABS: Urine Bacteria None Seen /hpf (None Seen)
[2024-03-12 04:06] LABS: Urine Blood Negative /uL (Negative); Urine Clarity Clear (Clear); Urine Color Light-Yellow (Yellow); Urine Protein, UAD TRACE (Negative); Urine Specific Gravity 1.016 (1.001-1.035); Urine Urobilinogen Normal (Negative); Urine WBC 1 /hpf (0 - 3); Urine pH 5.5 (5.0-9.0)
--- NOTE | 2024-03-12 04:14 | DVH ---
CHEST RADIOGRAPH Indication:sob Technique: Single frontal view of the chest was obtained Comparison: XY CHEST PORTABLE on DOS: 03/06/24 FINDINGS: Lines and Tubes: None Lungs: Bilateral upper lobe subsegmental atelectasis. Patchy left upper and lower lobe infiltrate, in creased since prior study. Pleura: No effusion. No pneumothorax. Cardiomediastinal contours: Stable Bones: No acute osseous abnormality. IMPRESSION: 1. Worsening bilateral airspace disease especially in the left lung. Pneumonia is not excluded.
[2024-03-12 04:20] LABS: Chloride 105 mmol/L (98-107); Potassium 5.3 mmol/L (3.5-5.1); Sodium 137 mmol/L (136-145)
[2024-03-12 04:21] LABS: Anion Gap 10 (5-15); Calcium 9.6 mg/dL (8.7-10.4); Carbon Dioxide 22 mmol/L (20-31)
[2024-03-12 04:26] LABS: BUN/Creatinine Ratio 16.1 (10.0-20.0); Blood Urea Nitrogen 48 mg/dL (9-23)
[2024-03-12 04:32] LABS: Glucose 399 mg/dL (74-106)
[2024-03-12] MEDS: AZITHROMYCIN 250 MG TAB PO ONE (05:53)
[2024-03-12] MEDS: VANCOMYCIN 1GM/200ML PREMIX 200 ML IV ONE (05:53)
--- NOTE | 2024-03-12 06:17 | ECG ---
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
[2024-03-12] MEDS: CEFEPIME 2GM/50ML NS 50 ML IV ONE (06:54)
[2024-03-12] MEDS ORDERED: ACETAMINOPHEN 325 MG TAB PO PRN (14:00)
[2024-03-12] MEDS ORDERED: DOCUSATE SOD 100 MG CAP PO PRN (14:00)
[2024-03-12] MEDS ORDERED: MORPHINE SULFATE INJ 2 MG/ml SYRG IV PRN (14:00)
[2024-03-12] MEDS ORDERED: ONDANSETRON HCL 4 MG/2 ML VIAL IV PRN (14:00)
[2024-03-12] MEDS ORDERED: NITROGLYCERIN 0.4 MG SL TAB SL PRN (14:00)
--- NOTE | 2024-03-12 14:16 | DVHHP2 ---
History of Present Illness Reason for Visit: Could not get up from the toilet seat History of Present Illness 78-year-old male with a known history of chronic AFib, chronic respiratory failure on home O2, COPD, history of lung transplant, previous smoker, hypertension, diabetes mellitus type 2, dyslipidemia initially presented to the hospital with generalized weakness polyphagia polydipsia for one day. Patient was recently hospitalized for L1 fracture was discharged home on home O2. Been paramedics was called patient was found to have blood glucose of 384, O2 saturation 80 % on room air, blood pressure of ED by 60 and in AFib with a RVR at a rate of 130s. Patient is currently denies any chest pain shortness of breath. Denies any fevers chills. Cardiovascular: AFIB, CHF, HTN, hyperipidemia Pulmonary: COPD Renal/: Chronic renal insuff Endocrine: Diabetes Past Surgical History: Other (Lung transplant patient) ALCOHOL: none Review of Systems Review of Systems 12 review of system are negative besides mentioned above. Allergies: Coded Allergies: No Known Drug Allergy (Verified Allergy, Unknown, 08/25/15) Medications Current Medications Medications Dose Ordered Sig/Anish Route Start Time Stop Time Status Last Admin Dose Admin Sodium Chloride 1,000 ml @ 60 mls/hr [id number] IV 03/12/24 14:00 Acetaminophen/ Hydrocodone Bitart 1 tab Q4HP PRN PO 03/12/24 14:00 Ondansetron HCl 4 mg Q4HP PRN IV 03/12/24 14:00 Docusate Sodium 100 mg BIDPRN PRN PO 03/12/24 14:00 Acetaminophen 650 mg Q6HP PRN PO 03/12/24 14:00 Morphine Sulfate 2 mg Q4HPRN PRN IV 03/12/24 14:00 Nitroglycerin 0.4 mg Q5MINP PRN SL 03/12/24 14:00 Morphine Sulfate 2 mg Q30M PRN IV 03/12/24 14:00 Ceftriaxone Sodium 50 ml @ 100 mls/hr DAILY@09 IV 03/12/24 14:00 Exam Vital Signs Vital Signs Date Time Temp Pulse Resp B/P (MAP) Pulse Ox O2 Delivery O2 Flow Rate FiO2 03/12/24 13:00 111 21 129/79 (96) 97 03/12/24 08:40 Nasal Cannula* 2 28 03/12/24 03:25 98.2 98.2 Exam HEENT pupils are reactive Neck is supple CV is S1-S2 regular rate and rhythm Respiratory diminished breath sounds bases GI positive bowel sound Extremity no edema 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 Labs/Xrays Labs Test 03/12/24 12:36 03/12/24 06:15 03/12/24 03:46 03/12/24 03:15 Range/Units POC Glucose 248 H 70-106 mg/dl Troponin I High Sensitivity 16 </=54 ng/L Urine Color Light-yellow Yellow Urine Clarity Clear Clear Urine pH 5.5 5.0-9.0 Urine Specific [place] 1.016 1.001-1.035 Urine Protein Trace H Negative Urine Ketones 1+ H Negative Urine Blood Negative Negative /uL Urine Nitrite Negative Negative Urine Bilirubin Negative Negative Urine Urobilinogen Normal Negative mg/dL Urine Leukocyte Esterase Negative Negative /uL Urine RBC 1 0 - 3 /hpf Urine WBC 1 0 - 3 /hpf Urine Squamous Epithelial Cells Few <5 /hpf Urine Bacteria None seen None Seen /hpf Urine Glucose 4+ H Normal mg/dL White Blood Count 7.6 # 4.4-10.8 10^3/uL Red Blood Count 4.56 4.5-5.90 10^6/uL Hemoglobin 8.6 L 13.5-17.5 g/dL Hematocrit 28.5 L 41.0-53.0 % Mean Corpuscular Volume 62.5 L 80.0-100.0 fL Mean Corpuscular Hemoglobin 18.9 L 28.0-32.0 pg Mean Corpuscular Hemoglobin Concent 30.3 L 32.0-36.0 g/dL Red Cell Distribution Width 18.6 H 11.8-14.3 % Platelet Count 181 140-450 10^3/uL Mean Platelet Volume 8.3 6.9-10.8 fL Neutrophils (%) (Auto) 79.2 37.0-80.0 % Lymphocytes (%) (Auto) 14.1 10.0-50.0 % Monocytes (%) (Auto) 5.3 0.0-12.0 % Eosinophils (%) (Auto) 0.3 0.0-7.0 % Basophils (%) (Auto) 1.1 0.0-2.0 % Neutrophils # (Auto) 6.0 1.6-8.6 10 ^3/uL Lymphocytes # (Auto) 1.1 0.4-5.4 10 ^3/uL Monocytes # (Auto) 0.4 0-1.3 10 ^3/uL Eosinophils # (Auto) 0 0-0.8 10 ^3/uL Basophils # (Auto) 0.1 0-0.2 10 ^3/uL Nucleated Red Blood Cells 0.4 % Sodium Level 137 136-145 mmol/L Potassium Level 5.3 H 3.5-5.1 mmol/L Chloride Level 105 98-107 mmol/L Carbon Dioxide Level 22 20-31 mmol/L Anion Gap 10 5-15 Blood Urea Nitrogen 48 H 9-23 mg/dL Creatinine 2.99 H 0.700-1.30 mg/dL Glomerular Filtration Rate Calc 21 >90 mL/min BUN/Creatinine Ratio 16.1 10.0-20.0 Serum Glucose 399 #H 74-106 mg/dL Calcium Level 9.6 8.7-10.4 mg/dL B-Type Natriuretic Peptide 85.67 0-100 pg/mL Assessment/Plan Assessment/Plan 78-year-old male with a known history of chronic AFib, chronic respiratory failure on home O2, COPD, diabetes mellitus type 2, hypertension, dyslipidemia, bilateral lung transplant, previous tobacco use disorder presented to the hospital with generalized eventually as currently get out of toilet seat found to have 1. Acute on chronic hypoxic respiratory failure 2. Pneumonia 3. Acute kidney injury with underlying CKD 4. COPD not in exacerbation 5. Recent L1 fracture status post found 6. Chronic AFib 7. Diabetes mellitus 8. Hypertension abdominal 9. bilateral lung transplant? Patient is a poor historian -IV antibiotics, med nebs, O2 supplementation, Infectious Disease consultation -nephrology consultation. Plan discussed with: Patient My Orders Orders - SANDY HEWITT MD Procedure Category Date Status Time Admit ADMIT 03/12/24 Transmitted 13:47 Code Status CODE 03/12/24 Transmitted 13:47 Sodium Chloride 0.9% PHA 03/12/24 In Process 14:00 Hydrocodone-Acet PHA 03/12/24 In Process 5/325mg Tab ([place] 14:00 Ondansetron Hcl PHA 03/12/24 In Process (Zofran) 14:00 Docusate Sodium PHA 03/12/24 In Process Capsule (Colace 14:00 Fall Risk Precautions [place] 03/12/[address] 13:47 Complete Blood Count LAB 03/13/24 Verified 04:00 Comprehensive LAB 03/13/24 Verified Metabolic Panel 04:00 Cardiac DIET 03/12/24 Transmitted Diet-2gna,Lofat,Lochol Dinner Pt Request For Service PT 03/12/24 Logged 13:47 Condition: Fair [place] 03/12/24 In Process 13:47 Acetaminophen Tablet PHA 03/12/24 In Process (Tylenol Tablet) 14:00 Morphine Sulfate PHA 03/12/24 In Process Injection 14:00 Nitroglycerin PHA 03/12/24 In Process Sublingual (Ntrostat 14:00 Morphine Sulfate PHA 03/12/24 In Process Injection 14:00 Stat Ekg For Chest [facility] 03/12/24 In Process Pain 13:47 Notify Of Changes [facility] 03/12/24 In Process From Base 13:47 Seat Coverer For [facility] 03/12/24 In Process 24 Hours 13:47 Emergency Dysrhythmia [facility] 03/12/24 In Process Protocol 13:47 Rhythm Strips Once [facility] 03/12/24 In Process Every Shift 13:47 Oxygen By Nasal RT 03/12/24 Transmitted Cannula 13:47 * Infectious Morgan Pearce CONS 03/12/24 Transmitted Mallad 13:47 Basic Metabolic Panel LAB 03/12/24 Logged 13:53 Ceftriaxone 1gm/50ml PHA 03/12/24 In Process D5w (Rocephin) 14:00 Azithromycin 500mg/ PHA 03/12/24 In Process 250ml (Zithromax 50 14:00 Problem List: (1) Atrial fibrillation (2) Diabetes mellitus (3) Hypoxia (4) Pneumonia Date of Service: Mar 12, 2024 Billing Provider: SANDY HEWITT MD Common Visit Codes: NOT BILLABLE SANDY HEWITT MD Mar 12, 2024 14:16
[2024-03-12] MEDS: SODIUM CHLORIDE 0.9% 1,000 ML IV SCH (14:17)
[2024-03-12] MEDS: cefTRIAXone 1GM/50ML D5W 50 ML IV SCH (14:17)
[2024-03-12] MEDS: AZITHROMYCIN 500MG/ 250ML 250 ML IV ONE (14:40)
[2024-03-12 16:08] LABS: Chloride 108 mmol/L (98-107); Potassium 5.1 mmol/L (3.5-5.1); Sodium 139 mmol/L (136-145)
[2024-03-12 16:09] LABS: Anion Gap 6 (5-15); Calcium 8.6 mg/dL (8.7-10.4); Carbon Dioxide 25 mmol/L (20-31)
[2024-03-12 16:14] LABS: BUN/Creatinine Ratio 15.3 (10.0-20.0); Blood Urea Nitrogen 40 mg/dL (9-23); Glucose 384 mg/dL (74-106)
[2024-03-12] MEDS ORDERED: DEXTROSE (50%) 50ML SYRG IV PRN (16:45)
[2024-03-12] MEDS: ACCU-CHEK COMFORT CURVE STRIP VI SCH (17:45)
[2024-03-12] MEDS: InsuLIN REG 1unit/0.01ml Soln (100units/ml) SC SCH ×2 (17:45→22:29)
[2024-03-12] MEDS: MORPHINE SULFATE INJ 2 MG/ml SYRG IV PRN (17:55)
[2024-03-12] MEDS: IPRATROPIUM BROM 0.5 MG/2.5ML INH SOL NEB SCH (18:13)
[2024-03-12] MEDS: ALBUTEROL SULF 2.5 MG/0.5ML(0.5%) NEB SOLN NEB SCH (18:13)
--- NOTE | 2024-03-12 19:34 | DVHINCON2 ---
Date of service: Mar 12, [address] Fitzgerald Reason for Consultation Acute kidney injury History of Present Illness Patient is a 78-year-old male with past medical history significant for AFIB, end-stage COPD status post double lung transplant on home O2, DM, High Lipids, HTN, Liver Disease is admitted for generalized weakness polyuria and polydipsia for a couple of days. On admission patient found to have elevated BUN creatinine nephrology is consulted for acute kidney injury Past Medical History PAST MEDICAL HISTORY: AFIB, COPD (w/home O2), DM, High Lipids, HTN, Liver Past Surgical History Double lung transplant Allergies: Coded Allergies: No Known Drug Allergy (Verified Allergy, Unknown, 08/25/15) Home Meds Active Scripts Hydrocodone-Acetaminophen (Hydrocodone Bitartrate/AC 5-325 mg) 1 Tab Tab, 1 TAB PO Q8HPRN PRN, #14 TAB Prov:HERRERA ENRIQUEZ MD 03/09/24 Calcium Citrate-Vitamin D (Calcitrate Plus D 315-200 mg-Unit) 1 Tab Tab, 1 TAB PO BID, #90 TAB Prov:HERRERA ENRIQUEZ MD 03/09/24 Cyclobenzaprine Hcl (Cyclobenzaprine Hcl) 5 Mg Tab, 1 TAB PO TID, #30 TAB Prov:HERRERA ENRIQUEZ MD 03/09/24 Reported Medications Hydrochlorothiazide (Hydrochlorothiazide) 12.5 Mg Cap, 12.5 MG PO DAILY, CAP 03/13/24 Losartan Potassium (Losartan Potassium) 50 Mg Tab, 50 MG PO DAILY, MG 03/13/24 Amlodipine Besylate (Amlodipine Besylate) 10 Mg Tab, 10 MG PO DAILY, TAB 03/13/24 Metoprolol Tartrate (Lopressor) 25 Mg Tb, 25 MG PO Q12HR, TAB 03/13/24 Nateglinide (Nateglinide) 120 Mg Tab, 120 MG PO TIDWM, TAB 03/13/24 Insulin Lispro (Humalog Kwikpen) 100 Unit/Ml Inj, 5 UNIT SC AC, INJ 03/13/24 Everolimus (Everolimus) 0.5 Mg Tab, 4 TAB PO BIDAC, TAB 03/13/24 Prednisone (Prednisone) 2.5 Mg Tab, 2.5 MG PO TID, TAB 11/8/24 Mycophenolate Mofetil (Mycophenolate Mofetil) 250 Mg Cap, 500 MG PO BID, CAP 03/13/24 Tamsulosin Hcl (Tamsulosin Hcl) 0.4 Mg Cap, 0.8 MG PO QPM for 30 Days, MG 12/31/16 Pantoprazole Sodium (PANTOPRAZOLE SODIUM) 40 Mg Inj, 40 MG PO DAILY, INJ 12/31/16 Multiple Vitamin (Multivitamins) Cap, 1 CAP PO DAILY, #30 CAP 3 Refills 12/31/16 Insulin Detemir (Levemir Flextouch) 100 Unit/Ml Inj, 20 UNIT SC HS, INJ 12/31/16 Gabapentin (Gabapentin) 100 Mg Cap, 100 MG PO BID 12/31/16 Finasteride (Finasteride) 5 Mg Tab, 5 MG PO HS for 30 Days, MG 12/31/16 Entecavir Monohydrate (Entecavir) 0.5 Mg Tab, 0.5 MG PO Q72HR, TAB 12/31/16 Atorvastatin Calcium (ATORVASTATIN CALCIUM) 20 Mg Tab, 20 MG PO HS, TAB 12/31/16 Discontinued Reported Medications Tacrolimus (ASTAGRAF XL) 1 Mg Cap, 3 MG PO BID, CAP 12/31/16 Prednisone (PREDNISONE) 5 Mg Tb, 10 MG PO DAILY 12/31/16 Mycophenolate Mofetil (Cellcept) 500 Mg Tab, 2 TAB PO BID, #360 TAB 3 Refills 12/31/16 Enoxaparin Sodium (Enoxaparin Sodium) 30 Mg/0.3 Ml Inj, 30 MG SC HS, INJ 12/31/16 Discontinued Scripts Doxycycline (Monohydrate) (Doxycycline) 100 Mg Cap, 100 MG PO BID, #14 CAP Prov:REINALDO KRAUS MD 03/25/22 Dexamethasone (Decadron) 6 Mg Tab, 6 MG PO DAILY@BREAKFAST, #8 TAB Prov:REINALDO KRAUS MD 03/25/22 Yeast (S. Boulardii)(S. Cerevi (Florastor) 250 Mg Cap, 250 MG PO DAILY, #7 CAP Prov:CATHERINE VALDES MD 01/03/17 Levofloxacin (Levaquin) 250 Mg Tab, 250 MG PO DAILY, #5 TAB Prov:CATHERINE VALDES MD 01/03/17 Fluconazole (Diflucan) 200 Mg Tab, 1 TAB PO DAILY, #7 TAB Prov:CATHERINE VALDES MD 01/03/17 Current Medications Current Medications Medications (Trade) Dose Ordered Sig/Anish Route PRN Reason Start Time Stop Time Status Last Admin Sodium Chloride 1,000 ml @ 60 mls/hr [id number] IV 03/12/24 14:00 03/13/24 06:20 Acetaminophen/ Hydrocodone Bitart ([place] 5/325MG Tab) 1 tab Q4HP PRN PO MODERATE PAIN (4-6 PAIN SCALE) 03/12/24 14:00 Ondansetron HCl (Zofran) 4 mg Q4HP PRN IV NAUSEA / VOMITING 03/12/24 14:00 Docusate Sodium (Colace Capsule) 100 mg BIDPRN PRN PO FOR CONSTIPATION 03/12/24 14:00 Acetaminophen (Tylenol Tablet) 650 mg Q6HP PRN PO PAIN SCALE 1-3 OR TEMP>100.4 03/12/24 14:00 Morphine Sulfate 2 mg Q4HPRN PRN IV SEVERE PAIN (7-10 PAIN SCALE) 03/12/24 14:00 03/13/24 10:00 Nitroglycerin (Ntrostat Sublingual) 0.4 mg Q5MINP PRN SL FOR CHEST PAIN 03/12/24 14:00 Morphine Sulfate 2 mg Q30M PRN IV FOR CHEST PAIN 03/12/24 14:00 Ceftriaxone Sodium 50 ml @ 100 mls/hr DAILY@09 IV 03/12/24 14:00 03/13/24 09:48 Albuterol (Ventolin Medneb) 2.5 mg Q4HWA NEB 03/12/24 18:00 03/13/24 10:36 Ipratropium [place] (Atrovent Medneb) 0.5 mg Q4HWA NEB 03/12/24 18:00 03/13/24 10:36 Metoprolol Tartrate (Lopressor Tablet) 25 mg BID PO 03/12/24 22:00 03/13/24 10:01 Apixaban (Eliquis) 2.5 mg BID PO 03/12/24 22:00 03/13/24 10:01 Diagnostic Test (Pha) (Accu-Chek Comfort Curve T) 1 strip ACHS 03/12/24 17:00 03/13/24 12:15 Insulin Human Regular (InsuLIN R) HS SC 03/12/24 22:00 03/12/24 22:29 Insulin Human Regular (InsuLIN R) AC SC 03/12/24 17:00 03/13/24 06:16 Dextrose 50 ml UD PRN IV Blood Sugar LESS THAN 60 03/12/24 16:45 Atorvastatin Calcium (Lipitor) 20 mg HS PO 03/12/24 22:00 03/12/24 21:13 Finasteride (Proscar Tablet) 5 mg HS PO 03/12/24 22:00 03/12/24 21:14 Gabapentin (Neurontin Capsule) 100 mg TID PO 03/12/24 22:00 03/13/24 05:51 Prednisone 10 mg DAILY PO 03/13/24 10:00 03/13/24 10:01 Tamsulosin HCl (Flomax) 0.4 mg QPM PO 03/12/24 18:00 03/12/24 19:39 Patient Own Medication 0.5 mg HS PO 03/12/24 22:00 Patient Own Medication 3 mg BID PO 03/12/24 22:00 Mycophenolate Mofetil (Cellcept) 1,000 mg BID PO 03/12/24 22:00 03/13/24 10:02 Family History: Cerebrovascular accident (CVA) G8 FATHER Diabetes mellitus G8 MOTHER FHx: cancer G8 MOTHER Review of Systems All 12 item review of systems reviewed with the patient nonsignificant except what is mentioned in the history of present illness H&P Exam Vital Signs/I&O Vital Sign Date Time Temp Pulse Resp B/P (MAP) Pulse Ox O2 Delivery O2 Flow Rate FiO2 03/13/24 10:42 93 16 100 03/13/24 10:36 2.0 03/13/24 10:36 Nasal Cannula* 28 03/13/24 10:01 114/63 03/13/24 09:00 98.5 98.5 Intake and Output 03/12/24 03/13/24 19:00 07:00 Intake Total 820 ml Output Total 200 ml Balance 620 ml Intake Oral 400 ml IV Total 420 ml Output Urine Total 200 ml Physical Exam Patient is awake and O2 nasal cannula Lungs clear to auscultation bilaterally Cardiac exam regular rate and rhythm GI soft nontender was normal Extremities no clubbing cyanosis or edema Neuro nonfocal Labs/Diagnostic Data Labs/Diagnostic Data Laboratory Tests Test 03/13/24 11:07 03/13/24 06:07 03/13/24 05:00 03/12/24 21:17 Range/Units Urine Color Light-yellow Yellow Urine Clarity Clear Clear Urine pH 5.0 5.0-9.0 Urine Specific [place] 1.017 1.001-1.035 Urine Protein Trace H Negative Urine Ketones Trace Negative Urine Blood Negative Negative /uL Urine Nitrite Negative Negative Urine Bilirubin Negative Negative Urine Urobilinogen Normal Negative mg/dL Urine Leukocyte Esterase Negative Negative /uL Urine RBC <1 0 - 3 /hpf Urine WBC 1 0 - 3 /hpf Urine Squamous Epithelial Cells Few <5 /hpf Urine Uric Acid Crystals Few None Seen /hpf Urine Bacteria Few H None Seen /hpf Urine Creatinine 92.91 30.0-125.0 mg/dL Urine Protein/Creatinine Ratio 0.52 Urine Sodium 111 40-220 mmol/L Urine Glucose 3+ H Normal mg/dL Urine Total Protein 48.3 H 1-14 mg/dL POC Glucose 164 H 188 H 70-106 mg/dl White Blood Count 4.8 # 4.4-10.8 10^3/uL Red Blood Count 4.37 L 4.5-5.90 10^6/uL Hemoglobin 8.2 L 13.5-17.5 g/dL Hematocrit 27.2 L 41.0-53.0 % Mean Corpuscular Volume 62.1 L 80.0-100.0 fL Mean Corpuscular Hemoglobin 18.9 L 28.0-32.0 pg Mean Corpuscular Hemoglobin Concent 30.4 L 32.0-36.0 g/dL Red Cell Distribution Width 19.0 H 11.8-14.3 % Platelet Count 182 140-450 10^3/uL Mean Platelet Volume 8.7 6.9-10.8 fL Neutrophils (%) (Auto) 63.2 37.0-80.0 % Lymphocytes (%) (Auto) 23.7 10.0-50.0 % Monocytes (%) (Auto) 10.5 0.0-12.0 % Eosinophils (%) (Auto) 1.4 0.0-7.0 % Basophils (%) (Auto) 1.2 0.0-2.0 % Neutrophils # (Auto) 3.0 1.6-8.6 10 ^3/uL Lymphocytes # (Auto) 1.1 0.4-5.4 10 ^3/uL Monocytes # (Auto) 0.5 0-1.3 10 ^3/uL Eosinophils # (Auto) 0.1 0-0.8 10 ^3/uL Basophils # (Auto) 0.1 0-0.2 10 ^3/uL Nucleated Red Blood Cells 0.4 % Platelet Estimate Adequate Tear Drop Cells Few Ovalocytes Moderate [place] Cells Few Sodium Level 143 136-145 mmol/L Potassium Level 4.3 3.5-5.1 mmol/L Chloride Level 111 H 98-107 mmol/L Carbon Dioxide Level 23 20-31 mmol/L Anion Gap 9 5-15 Blood Urea Nitrogen 32 H 9-23 mg/dL Creatinine 2.18 H 0.700-1.30 mg/dL Glomerular Filtration Rate Calc 30 >90 mL/min BUN/Creatinine Ratio 14.7 10.0-20.0 Serum Glucose 146 #H 74-106 mg/dL Calcium Level 8.7 8.7-10.4 mg/dL Total Bilirubin 0.6 0.2-1.0 mg/dL Aspartate Amino Transferase (AST) 14 13-40 U/L Alanine Aminotransferase (ALT) 14 7-40 U/L Alkaline Phosphatase 44 L 46-116 U/L Total Protein 6.0 5.7-8.2 g/dL Albumin 3.4 3.2-4.8 g/dL Test 03/12/24 20:15 03/12/24 17:38 03/12/24 14:59 03/12/24 12:36 Range/Units Iron Level 27 L 65-175 ug/dL Total Iron Binding Capacity 197 L 250-425 ug/dL Percent Iron Saturation 13.7 L 20-55 % Ferritin 567.7 H 22-322 ng/mL Vitamin D 25-Hydroxy 84.6 30.0-100 ng/mL POC Glucose 343 H 248 H 70-106 mg/dl Sodium Level 139 136-145 mmol/L Potassium Level 5.1 3.5-5.1 mmol/L Chloride Level 108 H 98-107 mmol/L Carbon Dioxide Level 25 20-31 mmol/L Anion Gap 6 5-15 Blood Urea Nitrogen 40 H 9-23 mg/dL Creatinine 2.62 H 0.700-1.30 mg/dL Glomerular Filtration Rate Calc 24 >90 mL/min BUN/Creatinine Ratio 15.3 10.0-20.0 Serum Glucose 384 H 74-106 mg/dL Uric Acid 10.0 H 3.7-9.2 mg/dL Calcium Level 8.6 L 8.7-10.4 mg/dL Phosphorus Level 2.1 L 2.4-5.1 mg/dL Magnesium Level 2.2 1.6-2.6 mg/dL Test 03/12/24 06:15 03/12/24 04:20 03/12/24 03:46 03/12/24 03:15 Range/Units Troponin I High Sensitivity 16 13 16 </=54 ng/L Urine Color Light-yellow Yellow Urine Clarity Clear Clear Urine pH 5.5 5.0-9.0 Urine Specific [place] 1.016 1.001-1.035 Urine Protein Trace H Negative Urine Ketones 1+ H Negative Urine Blood Negative Negative /uL Urine Nitrite Negative Negative Urine Bilirubin Negative Negative Urine Urobilinogen Normal Negative mg/dL Urine Leukocyte Esterase Negative Negative /uL Urine RBC 1 0 - 3 /hpf Urine WBC 1 0 - 3 /hpf Urine Squamous Epithelial Cells Few <5 /hpf Urine Bacteria None seen None Seen /hpf Urine Glucose 4+ H Normal mg/dL White Blood Count 7.6 # 4.4-10.8 10^3/uL Red Blood Count 4.56 4.5-5.90 10^6/uL Hemoglobin 8.6 L 13.5-17.5 g/dL Hematocrit 28.5 L 41.0-53.0 % Mean Corpuscular Volume 62.5 L 80.0-100.0 fL Mean Corpuscular Hemoglobin 18.9 L 28.0-32.0 pg Mean Corpuscular Hemoglobin Concent 30.3 L 32.0-36.0 g/dL Red Cell Distribution Width 18.6 H 11.8-14.3 % Platelet Count 181 140-450 10^3/uL Mean Platelet Volume 8.3 6.9-10.8 fL Neutrophils (%) (Auto) 79.2 37.0-80.0 % Lymphocytes (%) (Auto) 14.1 10.0-50.0 % Monocytes (%) (Auto) 5.3 0.0-12.0 % Eosinophils (%) (Auto) 0.3 0.0-7.0 % Basophils (%) (Auto) 1.1 0.0-2.0 % Neutrophils # (Auto) 6.0 1.6-8.6 10 ^3/uL Lymphocytes # (Auto) 1.1 0.4-5.4 10 ^3/uL Monocytes # (Auto) 0.4 0-1.3 10 ^3/uL Eosinophils # (Auto) 0 0-0.8 10 ^3/uL Basophils # (Auto) 0.1 0-0.2 10 ^3/uL Nucleated Red Blood Cells 0.4 % Sodium Level 137 136-145 mmol/L Potassium Level 5.3 H 3.5-5.1 mmol/L Chloride Level 105 98-107 mmol/L Carbon Dioxide Level 22 20-31 mmol/L Anion Gap 10 5-15 Blood Urea Nitrogen 48 H 9-23 mg/dL Creatinine 2.99 H 0.700-1.30 mg/dL Glomerular Filtration Rate Calc 21 >90 mL/min BUN/Creatinine Ratio 16.1 10.0-20.0 Serum Glucose 399 #H 74-106 mg/dL Hemoglobin A1c 10.1 H <5.7 % A1C Calcium Level 9.6 8.7-10.4 mg/dL B-Type Natriuretic Peptide 85.67 0-100 pg/mL Assessment Acute kidney injury superimposed Chronic Kidney Disease secondary hemodynamic mediated New onset diabetes mellitus Hyperglycemia Chronic respiratory failure History of double lung transplant on immunosuppression Tachycardia Microcytic anemia Recommendations Closely monitor fluid and electrolytes Avoid nephrotoxic medications Strict I&Os Check urine electrolytes and urine protein excretion Check kidney ultrasound Insulin sliding scale Resume home immunosuppression Check ferritin and iron studies We will continue to follow Patient seen and examined by myself. I discussed my plan of care with the patient and primary nurse at the bedside I would like to thank Dr. Fitzgerald for the consult, will follow up Plan discussed with: Patient SUDEEP GUILLEN MD Mar 12, 2024 19:34
[2024-03-12] MEDS: TAMSULOSIN HYDROCHLORIDE 0.4 MG CAP PO SCH (19:39)
[2024-03-12 20:44] LABS: Magnesium 2.2 mg/dL (1.6-2.6)
[2024-03-12 20:45] LABS: Phosphorus 2.1 mg/dL (2.4-5.1)
[2024-03-12 20:46] LABS: % Iron Saturation 13.7 % (20-55)
--- NOTE | 2024-03-12 20:46 | DVH ---
EXAM: US KIDNEY INDICATION: 78 years old, Male; yasmine. TECHNIQUE: Multiple real-time sonographic images of the kidneys and bladder were obtained. COMPARISON: US KIDNEY on DOS: 03/05/24, KIDNEY on DOS: 03/24/22 Findings: Right kidney measures 8.3 cm with normal contours, increased echotexture, and normal cortical thickne ss. No evidence of hydronephrosis, calculi, cystic or solid lesions. Left kidney measures 9.2 cm with normal contours, increased echotexture, and normal cortical thicknes s. 2.3 x 1.8 x 1.8 cm anechoic lesion in the midpole of the left kidney. No evidence of hydronephros is, calculi, or solid lesions. Urinary bladder is unremarkable without evidence of abnormal wall thickening, mass, or calculi. Prevo id volume 312 mL. Postvoid volume was not obtained. Impression: 1. Atrophic right kidney and increased echogenicity of bilateral kidneys. Correlate for medical renal disease. 2. Left renal parapelvic cyst.
[2024-03-12] MEDS: APIXABAN 2.5 MG TAB PO SCH (21:13)
[2024-03-12] MEDS: ATORVASTATIN 20 MG TAB PO SCH (21:13)
[2024-03-12] MEDS: METOPROLOL TARTRATE 25 MG TAB PO SCH (21:14)
[2024-03-12] MEDS: GABAPENTIN 100 MG CAP PO SCH (21:14)
[2024-03-12] MEDS: FINASTERIDE 5 MG TAB PO SCH (21:14)
[2024-03-12] MEDS: MYCOPHENOLATE 500 MG TAB PO SCH (22:00)
[2024-03-12] MEDS: [UNRECOGNIZED DRUG - OTHER] PO SCH (22:00)
[2024-03-12] MEDS: TACROLIMUS 3 MG PO SCH (22:00)
[2024-03-13] VITALS (19 sets, daily range): BP systolic 101–114; BP diastolic 43–73; PULSE 61–127; RESP 16–21; TEMP 97.7–99.5; O2SAT 91–100
[2024-03-13 05:40] LABS: Basophils # (auto) 0.1 10 ^3/uL (0-0.2); Eosinophils # (auto) 0.1 10 ^3/uL (0-0.8); Hemoglobin 8.2 g/dL (13.5-17.5); Monocytes # (auto) 0.5 10 ^3/uL (0-1.3)
[2024-03-13 05:43] LABS: Basophils % (auto) 1.2 % (0.0-2.0); Eosinophils % (auto) 1.4 % (0.0-7.0); Hematocrit 27.2 % (41.0-53.0); Lymphocytes # (auto) 1.1 10 ^3/uL (0.4-5.4); Lymphocytes % (auto) 23.7 % (10.0-50.0); Mean Corpuscular Hemoglobin 18.9 pg (28.0-32.0); Mean Corpuscular Hgb Conc. 30.4 g/dL (32.0-36.0); Mean Corpuscular Volume 62.1 fL (80.0-100.0); Monocytes % (auto) 10.5 % (0.0-12.0); Neutrophils % (auto) 63.2 % (37.0-80.0); Nucleated Red Blood Cells % 0.4 %; Platelet Count (auto) 182 10^3/uL (140-450); Red Blood Cells 4.37 10^6/uL (4.5-5.90); White Blood Cell 4.8 10^3/uL (4.4-10.8)
[2024-03-13 06:23] LABS: Alanine Aminotransferase 14 U/L (7-40); Alkaline Phosphatase 44 U/L (46-116); Anion Gap 9 (5-15); BUN/Creatinine Ratio 14.7 (10.0-20.0); Blood Urea Nitrogen 32 mg/dL (9-23); Calcium 8.7 mg/dL (8.7-10.4); Carbon Dioxide 23 mmol/L (20-31); Chloride 111 mmol/L (98-107); Potassium 4.3 mmol/L (3.5-5.1); Sodium 143 mmol/L (136-145)
[2024-03-13 06:24] LABS: Albumin 3.4 g/dL (3.2-4.8); Aspartate Aminotransferase 14 U/L (13-40); Bilirubin, Total 0.6 mg/dL (0.2-1.0)
[2024-03-13 06:31] LABS: Glucose 146 mg/dL (74-106)
[2024-03-13 06:55] LABS: Platelet Estimate Adequate
[2024-03-13 06:56] LABS: Ovalocytes MODERATE
[2024-03-13 06:57] LABS: Tear Drop Cells FEW
--- NOTE | 2024-03-13 09:56 | DVHINCON2 ---
Date of service: Mar 13, [address] Hewitt Reason for Consultation Generalized weakness. History of Present Illness Patient is a 78-year-old male presents to the hospital for the complaint of generalized weakness, polyphagia and polydipsia for the past one day. He denies any chest pain, shortness of breath, fever or chills. Patient was recently hospitalized for L1 fracture, he was discharged home on home O2. Paramedics was called patient was found to have blood glucose of 384, O2 saturation 80 % on room air, blood pressure of ED by 60 and in AFib with a RVR at a rate of 130s. On admission patient found to have elevated BUN creatinine. Antibiotic status: Azithromycin 250 ml @ 125 mls/hr [Started 03/12 - Ongoing] Ceftriaxone Sodium 50 ml @ 100 mls/hr [Started 03/12 - Ongoing] Blood culture: 03/05: No growth monitored. 03/12: Renal US: 1. Atrophic right kidney and increased echogenicity of bilateral kidneys. Correlate for medical renal disease. 2. Left renal parapelvic cyst. 03/12: Chest x-ray: Worsening bilateral airspace disease especially in the left lung. Pneumonia is not excluded Past Medical History Patient's past medical history is significant for chronic AFib, chronic respiratory failure on home O2, COPD, history of lung transplant, previous smoker, hypertension, diabetes mellitus type 2 and dyslipidemia. Past Surgical History Other (Lung transplant patient) Family History: Cerebrovascular accident (CVA) G8 FATHER Diabetes mellitus G8 MOTHER FHx: cancer G8 MOTHER Social History ALCOHOL: none Allergies: Coded Allergies: No Known Drug Allergy (Verified Allergy, Unknown, 08/25/15) Home Meds Active Scripts Amoxicillin & Pot Clavulanate (AUGMENTIN TABLET) 875 Mg Tb, 875 MG PO BID for 10 Days, #20 TAB Prov:SANDY HEWITT MD 03/14/24 Apixaban [place] (ELIQUIS) 2.5 Mg Tab, 2.5 MG PO BID for 30 Days, #60 TAB Prov:SANDY HEWITT MD 03/14/24 Hydrocodone-Acetaminophen (Hydrocodone Bitartrate/AC 5-325 mg) 1 Tab Tab, 1 TAB PO Q8HPRN PRN, #14 TAB Prov:HERRERA ENRIQUEZ MD 03/09/24 Calcium Citrate-Vitamin D (Calcitrate Plus D 315-200 mg-Unit) 1 Tab Tab, 1 TAB PO BID, #90 TAB Prov:HERRERA ENRIQUEZ MD 03/09/24 Cyclobenzaprine Hcl (Cyclobenzaprine Hcl) 5 Mg Tab, 1 TAB PO TID, #30 TAB Prov:HERRERA ENRIQUEZ MD 03/09/24 Reported Medications Hydrochlorothiazide (Hydrochlorothiazide) 12.5 Mg Cap, 12.5 MG PO DAILY, CAP 03/13/24 Losartan Potassium (Losartan Potassium) 50 Mg Tab, 50 MG PO DAILY, MG 03/13/24 Amlodipine Besylate (Amlodipine Besylate) 10 Mg Tab, 10 MG PO DAILY, TAB 03/13/24 Metoprolol Tartrate (Lopressor) 25 Mg Tb, 25 MG PO Q12HR, TAB 03/13/24 Nateglinide (Nateglinide) 120 Mg Tab, 120 MG PO TIDWM, TAB 03/13/24 Insulin Lispro (Humalog Kwikpen) 100 Unit/Ml Inj, 5 UNIT SC AC, INJ 03/13/24 Everolimus (Everolimus) 0.5 Mg Tab, 4 TAB PO BIDAC, TAB 03/13/24 Prednisone (Prednisone) 2.5 Mg Tab, 2.5 MG PO TID, TAB 03/13/24 Mycophenolate Mofetil (Mycophenolate Mofetil) 250 Mg Cap, 500 MG PO BID, CAP 03/13/24 Tamsulosin Hcl (Tamsulosin Hcl) 0.4 Mg Cap, 0.8 MG PO QPM for 30 Days, MG 12/31/16 Pantoprazole Sodium (PANTOPRAZOLE SODIUM) 40 Mg Inj, 40 MG PO DAILY, INJ 12/31/16 Multiple Vitamin (Multivitamins) Cap, 1 CAP PO DAILY, #30 CAP 3 Refills 12/31/16 Insulin Detemir (Levemir Flextouch) 100 Unit/Ml Inj, 20 UNIT SC HS, INJ 12/31/16 Gabapentin (Gabapentin) 100 Mg Cap, 100 MG PO BID 12/31/16 Finasteride (Finasteride) 5 Mg Tab, 5 MG PO HS for 30 Days, MG 12/31/16 Entecavir Monohydrate (Entecavir) 0.5 Mg Tab, 0.5 MG PO Q72HR, TAB 12/31/16 Atorvastatin Calcium (ATORVASTATIN CALCIUM) 20 Mg Tab, 20 MG PO HS, TAB 12/31/16 Discontinued Reported Medications Tacrolimus (ASTAGRAF XL) 1 Mg Cap, 3 MG PO BID, CAP 12/31/16 Prednisone (PREDNISONE) 5 Mg Tb, 10 MG PO DAILY 12/31/16 Mycophenolate Mofetil (Cellcept) 500 Mg Tab, 2 TAB PO BID, #360 TAB 3 Refills 12/31/16 Current Medications Current Medications Medications (Trade) Dose Ordered Sig/Anish Route PRN Reason Start Time Stop Time Status Last Admin Sodium Chloride 1,000 ml @ 60 mls/hr [id number] IV 03/12/24 14:00 03/13/24 06:20 Acetaminophen/ Hydrocodone Bitart ([place] 5/325MG Tab) 1 tab Q4HP PRN PO MODERATE PAIN (4-6 PAIN SCALE) 03/12/24 14:00 Ondansetron HCl (Zofran) 4 mg Q4HP PRN IV NAUSEA / VOMITING 03/12/24 14:00 Docusate Sodium (Colace Capsule) 100 mg BIDPRN PRN PO FOR CONSTIPATION 03/12/24 14:00 Acetaminophen (Tylenol Tablet) 650 mg Q6HP PRN PO PAIN SCALE 1-3 OR TEMP>100.4 03/12/24 14:00 Morphine Sulfate 2 mg Q4HPRN PRN IV SEVERE PAIN (7-10 PAIN SCALE) 03/12/24 14:00 03/13/24 02:50 Nitroglycerin (Ntrostat Sublingual) 0.4 mg Q5MINP PRN SL FOR CHEST PAIN 03/12/24 14:00 Morphine Sulfate 2 mg Q30M PRN IV FOR CHEST PAIN 03/12/24 14:00 Ceftriaxone Sodium 50 ml @ 100 mls/hr DAILY@09 IV 03/12/24 14:00 03/12/24 14:17 Albuterol (Ventolin Medneb) 2.5 mg Q4HWA NEB 03/12/24 18:00 03/13/24 07:03 Ipratropium [place] (Atrovent Medneb) 0.5 mg Q4HWA NEB 03/12/24 18:00 03/13/24 07:03 Metoprolol Tartrate (Lopressor Tablet) 25 mg BID PO 03/12/24 22:00 03/12/24 21:14 Apixaban (Eliquis) 2.5 mg BID PO 03/12/24 22:00 03/12/24 21:13 Diagnostic Test (Pha) (Accu-Chek Comfort Curve T) 1 strip ACHS 03/12/24 17:00 03/13/24 06:16 Insulin Human Regular (InsuLIN R) HS SC 03/12/24 22:00 03/12/24 22:29 Insulin Human Regular (InsuLIN R) AC SC 03/12/24 17:00 03/13/24 06:16 Dextrose 50 ml UD PRN IV Blood Sugar LESS THAN 60 03/12/24 16:45 Atorvastatin Calcium (Lipitor) 20 mg HS PO 03/12/24 22:00 03/12/24 21:13 Finasteride (Proscar Tablet) 5 mg HS PO 03/12/24 22:00 03/12/24 21:14 Gabapentin (Neurontin Capsule) 100 mg TID PO 03/12/24 22:00 03/13/24 05:51 Prednisone 10 mg DAILY PO 03/13/24 10:00 Tamsulosin HCl (Flomax) 0.4 mg QPM PO 03/12/24 18:00 03/12/24 19:39 Patient Own Medication 0.5 mg HS PO 03/12/24 22:00 Patient Own Medication 3 mg BID PO 03/12/24 22:00 Mycophenolate Mofetil (Cellcept) 1,000 mg BID PO 03/12/24 22:00 Review of Systems General: No Fever, chills, night sweats or weight loss. Reports generalized weakness, polyphagia and polydipsia HEENT: No Sinus pain, headache, vision changes or sore throat Respiratory: No dyspnea, sputum production, cough Cardiovascular: No Chest pain, palpitations or leg edema Gastrointestinal: No Nausea, vomiting, diarrhea, abdominal pain Genitourinary: No Dysuria, urinary frequency, hematuria, pelvic pain Skin: No Rashes, ulcers, abscesses, redness or swelling Musculoskeletal: No Joint pain, muscle pain or swelling Neurologic: No Altered mental status, headaches or focal neurological deficits Psychiatric: No Anxiety, depression or confusion Vital Signs Vital Signs Date Time Temp Pulse Resp B/P (MAP) Pulse Ox O2 Delivery O2 Flow Rate FiO2 03/13/24 09:00 98.5 91 20 101/43 (62) 91 98.5 03/13/24 07:03 2.0 03/13/24 07:03 Nasal Cannula* 28 Physical Exam General: Patient appears alert, comfortable and well-appearing. HEENT: Normocephalic, atraumatic, Sclera anicteric, conjunctiva clear, No nasal discharge or congestion. Mucous membranes moist, no tonsillar erythema or exudates. Neck: No cervical lymphadenopathy or masses. No neck stiffness. Lungs: Breath sounds clear bilaterally, no wheezes, rales, or rhonchi. No use of accessory muscles or respiratory distress. Cardiovascular: Regular rate and rhythm, no murmurs, rubs, or gallops. Abdomen: Soft, non-tender, non-distended. Bowel sounds present in all quadrants. No hepatosplenomegaly or masses. Skin: No rash, petechiae, or ecchymosis. Extremities: No edema, cyanosis, or clubbing. No tenderness to palpation, erythema, or swelling in joints. No signs of deep vein thrombosis (DVT). Neurologic: Patient is alert and oriented to person, place, and time. Cranial nerves II-XII intact. Motor strength 5/5 bilaterally in all extremities. Labs/Diagnostic Data Labs Test 03/13/24 06:07 03/13/24 05:00 03/12/24 20:15 03/12/24 14:59 Range/Units POC Glucose 164 H 70-106 mg/dl White Blood Count 4.8 # 4.4-10.8 10^3/uL Red Blood Count 4.37 L 4.5-5.90 10^6/uL Hemoglobin 8.2 L 13.5-17.5 g/dL Hematocrit 27.2 L 41.0-53.0 % Mean Corpuscular Volume 62.1 L 80.0-100.0 fL Mean Corpuscular Hemoglobin 18.9 L 28.0-32.0 pg Mean Corpuscular Hemoglobin Concent 30.4 L 32.0-36.0 g/dL Red Cell Distribution Width 19.0 H 11.8-14.3 % Platelet Count 182 140-450 10^3/uL Mean Platelet Volume 8.7 6.9-10.8 fL Neutrophils (%) (Auto) 63.2 37.0-80.0 % Lymphocytes (%) (Auto) 23.7 10.0-50.0 % Monocytes (%) (Auto) 10.5 0.0-12.0 % Eosinophils (%) (Auto) 1.4 0.0-7.0 % Basophils (%) (Auto) 1.2 0.0-2.0 % Neutrophils # (Auto) 3.0 1.6-8.6 10 ^3/uL Lymphocytes # (Auto) 1.1 0.4-5.4 10 ^3/uL Monocytes # (Auto) 0.5 0-1.3 10 ^3/uL Eosinophils # (Auto) 0.1 0-0.8 10 ^3/uL Basophils # (Auto) 0.1 0-0.2 10 ^3/uL Nucleated Red Blood Cells 0.4 % Platelet Estimate Adequate Tear Drop Cells Few Ovalocytes Moderate [place] Cells Few Sodium Level 143 136-145 mmol/L Potassium Level 4.3 3.5-5.1 mmol/L Chloride Level 111 H 98-107 mmol/L Carbon Dioxide Level 23 20-31 mmol/L Anion Gap 9 5-15 Blood Urea Nitrogen 32 H 9-23 mg/dL Creatinine 2.18 H 0.700-1.30 mg/dL Glomerular Filtration Rate Calc 30 >90 mL/min BUN/Creatinine Ratio 14.7 10.0-20.0 Serum Glucose 146 #H 74-106 mg/dL Calcium Level 8.7 8.7-10.4 mg/dL Total Bilirubin 0.6 0.2-1.0 mg/dL Aspartate Amino Transferase (AST) 14 13-40 U/L Alanine Aminotransferase (ALT) 14 7-40 U/L Alkaline Phosphatase 44 L 46-116 U/L Total Protein 6.0 5.7-8.2 g/dL Albumin 3.4 3.2-4.8 g/dL Iron Level 27 L 65-175 ug/dL Total Iron Binding Capacity 197 L 250-425 ug/dL Percent Iron Saturation 13.7 L 20-55 % Ferritin 567.7 H 22-322 ng/mL Vitamin D 25-Hydroxy 84.6 30.0-100 ng/mL Uric Acid 10.0 H 3.7-9.2 mg/dL Phosphorus Level 2.1 L 2.4-5.1 mg/dL Magnesium Level 2.2 1.6-2.6 mg/dL Test 03/12/24 06:15 03/12/24 03:46 03/12/24 03:15 Range/Units Troponin I High Sensitivity 16 </=54 ng/L Urine Color Light-yellow Yellow Urine Clarity Clear Clear Urine pH 5.5 5.0-9.0 Urine Specific [place] 1.016 1.001-1.035 Urine Protein Trace H Negative Urine Ketones 1+ H Negative Urine Blood Negative Negative /uL Urine Nitrite Negative Negative Urine Bilirubin Negative Negative Urine Urobilinogen Normal Negative mg/dL Urine Leukocyte Esterase Negative Negative /uL Urine RBC 1 0 - 3 /hpf Urine WBC 1 0 - 3 /hpf Urine Squamous Epithelial Cells Few <5 /hpf Urine Bacteria None seen None Seen /hpf Urine Glucose 4+ H Normal mg/dL Hemoglobin A1c 10.1 H <5.7 % A1C B-Type Natriuretic Peptide 85.67 0-100 pg/mL Assessment Patient is a 78-year-old male presented to the hospital with: 1. Acute on chronic hypoxic respiratory failure 2. Pneumonia 3. Acute kidney injury with underlying CKD 4. COPD not in exacerbation 5. Recent L1 fracture status post found 6. Chronic AFib 7. Diabetes mellitus 8. Hypertension abdominal 9. bilateral lung transplant? Patient is a poor historian Recommendations: --Ordered sputum culture and MRSA screening. --We will monitor Thank you for consult. MARTA ALBARRAN MD Mar 13, 2024 09:56
[2024-03-13] MEDS: predniSONE 5 MG TAB PO SCH (10:01)
[2024-03-13 11:59] LABS: Urine Bacteria FEW /hpf (None Seen); Urine Blood Negative /uL (Negative); Urine Clarity Clear (Clear); Urine Color Light-Yellow (Yellow); Urine Protein, UAD TRACE (Negative); Urine Specific Gravity 1.017 (1.001-1.035); Urine Urobilinogen Normal (Negative); Urine WBC 1 /hpf (0 - 3)
[2024-03-13] MEDS ORDERED: INSU100I4 SC (12:03)
[2024-03-13] MEDS ORDERED: MET25T PO (12:03)
[2024-03-13] MEDS ORDERED: HYDR12.59 PO (12:03)
[2024-03-13] MEDS ORDERED: PRED2.5T4 PO (12:03)
[2024-03-13] MEDS ORDERED: EVER0.5T3 PO (12:03)
[2024-03-13] MEDS ORDERED: LOSA-534 PO (12:03)
[2024-03-13] MEDS ORDERED: MYCO250C4 PO (12:03)
[2024-03-13] MEDS ORDERED: NATE120T5 PO (12:03)
[2024-03-13] MEDS ORDERED: AMLO1TAB23 PO (12:03)
--- NOTE | 2024-03-13 12:04 | DVHINCON2 ---
Date of service: Mar 13, 2024 History of Present Illness 78-year-old male with a known history of chronic AFib, chronic respiratory failure on home O2, COPD, history of lung transplant, previous smoker, hyperten maggie, diabetes mellitus type 2, dyslipidemia initially presented to the hospital with generalized weakness polyphagia polydipsia for one day. Patient was recently hospitalized for L1 fracture was discharged home on home O2. Been paramedics was called patient was found to have blood glucose of 384, O2 saturation 80 % on room air, blood pressure of ED by 60 and in AFib with a RVR a t a rate of 130s. Patient is currently denies any chest pain shortness of breath. Denies any fevers chills. Cardiovascular: AFIB, CHF, HTN, hyperipidemia Pulmonary: COPD Renal/: Chronic renal insuff Endocrine: Diabetes Past Surgical History: Other (Lung transplant patient) ALCOHOL: none Past Medical History reviewed Family History: Cerebrovascular accident (CVA) G8 FATHER Diabetes mellitus G8 MOTHER FHx: cancer G8 MOTHER Allergies: Coded Allergies: No Known Drug Allergy (Verified Allergy, Unknown, 08/25/15) Home Meds Active Scripts Hydrocodone-Acetaminophen (Hydrocodone Bitartrate/AC 5-325 mg) 1 Tab Tab, 1 TAB PO Q8HPRN PRN, #14 TAB Prov:HERRERA ENRIQUEZ MD 03/09/24 Calcium Citrate-Vitamin D (Calcitrate Plus D 315-200 mg-Unit) 1 Tab Tab, 1 TAB PO BID, #90 TAB Prov:HERRERA ENRIQUEZ MD 03/09/24 Cyclobenzaprine Hcl (Cyclobenzaprine Hcl) 5 Mg Tab, 1 TAB PO TID, #30 TAB Prov:HERRERA ENRIQUEZ MD 03/09/24 Albuterol Sulfate (VENTOLIN MDI) 90 Mcg Ih, 2 PUFF IN Q4HPRN PRN, #1 INHALER Prov:REINALDO KRAUS MD 03/25/22 Reported Medications Oxycodone Hcl (OXYCODONE HCL) 5 Mg Tb, 10 MG PO Q4HPRN PRN for MODERATE PAIN 12/31/16 Tamsulosin Hcl (Tamsulosin Hcl) 0.4 Mg Cap, 0.4 MG PO QPM for 30 Days, MG 12/31/16 Tacrolimus (ASTAGRAF XL) 1 Mg Cap, 3 MG PO BID, CAP 12/31/16 Prednisone (PREDNISONE) 5 Mg Tb, 10 MG PO DAILY 12/31/16 Pantoprazole Sodium (PANTOPRAZOLE SODIUM) 40 Mg Inj, 40 MG PO DAILY, INJ 12/31/16 Mycophenolate Mofetil (Cellcept) 500 Mg Tab, 2 TAB PO BID, #360 TAB 3 Refills 12/31/16 Multiple Vitamin (Multivitamins) Cap, 1 CAP PO DAILY, #30 CAP 3 Refills 12/31/16 Insulin Detemir (Levemir Flextouch) 100 Unit/Ml Inj, 100 UNIT SC HS, INJ 12/31/16 Gabapentin (Gabapentin) 100 Mg Cap, 100 MG PO TID 12/31/16 Finasteride (Finasteride) 5 Mg Tab, 5 MG PO HS for 30 Days, MG 12/31/16 Entecavir Monohydrate (Entecavir) 0.5 Mg Tab, 0.5 MG PO HS, TAB 12/31/16 Atorvastatin Calcium (ATORVASTATIN CALCIUM) 20 Mg Tab, 20 MG PO HS, TAB 12/31/16 Discontinued Reported Medications Enoxaparin Sodium (Enoxaparin Sodium) 30 Mg/0.3 Ml Inj, 30 MG SC HS, INJ 12/31/16 Discontinued Scripts Doxycycline (Monohydrate) (Doxycycline) 100 Mg Cap, 100 MG PO BID, #14 CAP Prov:REINALDO KRAUS MD 03/25/22 Dexamethasone (Decadron) 6 Mg Tab, 6 MG PO DAILY@BREAKFAST, #8 TAB Prov:REINALDO KRAUS MD 03/25/22 Yeast (S. Boulardii)(S. Cerevi (Florastor) 250 Mg Cap, 250 MG PO DAILY, #7 CAP Prov:CATHERINE VALDES MD 01/03/17 Levofloxacin (Levaquin) 250 Mg Tab, 250 MG PO DAILY, #5 TAB Prov:CATHERINE VALDES MD 01/03/17 Fluconazole (Diflucan) 200 Mg Tab, 1 TAB PO DAILY, #7 TAB Prov:CATHERINE VALDES MD 01/03/17 Current Medications Current Medications Medications (Trade) Dose Ordered Sig/Anish Route PRN Reason Start Time Stop Time Status Last Admin Sodium Chloride 1,000 ml @ 60 mls/hr [id number] IV 03/12/24 14:00 03/13/24 06:20 Acetaminophen/ Hydrocodone Bitart ([place] 5/325MG Tab) 1 tab Q4HP PRN PO MODERATE PAIN (4-6 PAIN SCALE) 03/12/24 14:00 Ondansetron HCl (Zofran) 4 mg Q4HP PRN IV NAUSEA / VOMITING 03/12/24 14:00 Docusate Sodium (Colace Capsule) 100 mg BIDPRN PRN PO FOR CONSTIPATION 03/12/24 14:00 Acetaminophen (Tylenol Tablet) 650 mg Q6HP PRN PO PAIN SCALE 1-3 OR TEMP>100.4 03/12/24 14:00 Morphine Sulfate 2 mg Q4HPRN PRN IV SEVERE PAIN (7-10 PAIN SCALE) 03/12/24 14:00 03/13/24 10:00 Nitroglycerin (Ntrostat Sublingual) 0.4 mg Q5MINP PRN SL FOR CHEST PAIN 03/12/24 14:00 Morphine Sulfate 2 mg Q30M PRN IV FOR CHEST PAIN 03/12/24 14:00 Ceftriaxone Sodium 50 ml @ 100 mls/hr DAILY@09 IV 03/12/24 14:00 03/13/24 09:48 Albuterol (Ventolin Medneb) 2.5 mg Q4HWA NEB 03/12/24 18:00 03/13/24 10:36 Ipratropium [place] (Atrovent Medneb) 0.5 mg Q4HWA NEB 03/12/24 18:00 03/13/24 10:36 Metoprolol Tartrate (Lopressor Tablet) 25 mg BID PO 03/12/24 22:00 03/13/24 10:01 Apixaban (Eliquis) 2.5 mg BID PO 03/12/24 22:00 03/13/24 10:01 Diagnostic Test (Pha) (Accu-Chek Comfort Curve T) 1 strip ACHS 03/12/24 17:00 03/13/24 06:16 Insulin Human Regular (InsuLIN R) HS SC 03/12/24 22:00 03/12/24 22:29 Insulin Human Regular (InsuLIN R) AC SC 03/12/24 17:00 03/13/24 06:16 Dextrose 50 ml UD PRN IV Blood Sugar LESS THAN 60 03/12/24 16:45 Atorvastatin Calcium (Lipitor) 20 mg HS PO 03/12/24 22:00 03/12/24 21:13 Finasteride (Proscar Tablet) 5 mg HS PO 03/12/24 22:00 03/12/24 21:14 Gabapentin (Neurontin Capsule) 100 mg TID PO 03/12/24 22:00 03/13/24 05:51 Prednisone 10 mg DAILY PO 03/13/24 10:00 03/13/24 10:01 Tamsulosin HCl (Flomax) 0.4 mg QPM PO 03/12/24 18:00 03/12/24 19:39 Patient Own Medication 0.5 mg HS PO 03/12/24 22:00 Patient Own Medication 3 mg BID PO 03/12/24 22:00 Mycophenolate Mofetil (Cellcept) 1,000 mg BID PO 03/12/24 22:00 03/13/24 10:02 Review of Systems 10 pt ros otherwise negative Vital Signs Vital Signs Date Time Temp Pulse Resp B/P (MAP) Pulse Ox O2 Delivery O2 Flow Rate FiO2 03/13/24 10:42 93 16 100 03/13/24 10:36 2.0 03/13/24 10:36 Nasal Cannula* 28 03/13/24 10:01 114/63 03/13/24 09:00 98.5 98.5 Physical Exam nad s1 s2 tachycardic ctab soft nt/nd Labs/Diagnostic Data Labs Test 03/13/24 11:07 03/13/24 06:07 03/13/24 05:00 03/12/24 20:15 Range/Units Urine Color Light-yellow Yellow Urine Clarity Clear Clear Urine pH 5.0 5.0-9.0 Urine Specific [place] 1.017 1.001-1.035 Urine Protein Trace H Negative Urine Ketones Trace Negative Urine Blood Negative Negative /uL Urine Nitrite Negative Negative Urine Bilirubin Negative Negative Urine Urobilinogen Normal Negative mg/dL Urine Leukocyte Esterase Negative Negative /uL Urine RBC <1 0 - 3 /hpf Urine WBC 1 0 - 3 /hpf Urine Squamous Epithelial Cells Few <5 /hpf Urine Uric Acid Crystals Few None Seen /hpf Urine Bacteria Few H None Seen /hpf Urine Glucose 3+ H Normal mg/dL POC Glucose 164 H 70-106 mg/dl White Blood Count 4.8 # 4.4-10.8 10^3/uL Red Blood Count 4.37 L 4.5-5.90 10^6/uL Hemoglobin 8.2 L 13.5-17.5 g/dL Hematocrit 27.2 L 41.0-53.0 % Mean Corpuscular Volume 62.1 L 80.0-100.0 fL Mean Corpuscular Hemoglobin 18.9 L 28.0-32.0 pg Mean Corpuscular Hemoglobin Concent 30.4 L 32.0-36.0 g/dL Red Cell Distribution Width 19.0 H 11.8-14.3 % Platelet Count 182 140-450 10^3/uL Mean Platelet Volume 8.7 6.9-10.8 fL Neutrophils (%) (Auto) 63.2 37.0-80.0 % Lymphocytes (%) (Auto) 23.7 10.0-50.0 % Monocytes (%) (Auto) 10.5 0.0-12.0 % Eosinophils (%) (Auto) 1.4 0.0-7.0 % Basophils (%) (Auto) 1.2 0.0-2.0 % Neutrophils # (Auto) 3.0 1.6-8.6 10 ^3/uL Lymphocytes # (Auto) 1.1 0.4-5.4 10 ^3/uL Monocytes # (Auto) 0.5 0-1.3 10 ^3/uL Eosinophils # (Auto) 0.1 0-0.8 10 ^3/uL Basophils # (Auto) 0.1 0-0.2 10 ^3/uL Nucleated Red Blood Cells 0.4 % Platelet Estimate Adequate Tear Drop Cells Few Ovalocytes Moderate [place] Cells Few Sodium Level 143 136-145 mmol/L Potassium Level 4.3 3.5-5.1 mmol/L Chloride Level 111 H 98-107 mmol/L Carbon Dioxide Level 23 20-31 mmol/L Anion Gap 9 5-15 Blood Urea Nitrogen 32 H 9-23 mg/dL Creatinine 2.18 H 0.700-1.30 mg/dL Glomerular Filtration Rate Calc 30 >90 mL/min BUN/Creatinine Ratio 14.7 10.0-20.0 Serum Glucose 146 #H 74-106 mg/dL Calcium Level 8.7 8.7-10.4 mg/dL Total Bilirubin 0.6 0.2-1.0 mg/dL Aspartate Amino Transferase (AST) 14 13-40 U/L Alanine Aminotransferase (ALT) 14 7-40 U/L Alkaline Phosphatase 44 L 46-116 U/L Total Protein 6.0 5.7-8.2 g/dL Albumin 3.4 3.2-4.8 g/dL Iron Level 27 L 65-175 ug/dL Total Iron Binding Capacity 197 L 250-425 ug/dL Percent Iron Saturation 13.7 L 20-55 % Ferritin 567.7 H 22-322 ng/mL Vitamin D 25-Hydroxy 84.6 30.0-100 ng/mL Test 03/12/24 14:59 03/12/24 06:15 03/12/24 03:15 Range/Units Uric Acid 10.0 H 3.7-9.2 mg/dL Phosphorus Level 2.1 L 2.4-5.1 mg/dL Magnesium Level 2.2 1.6-2.6 mg/dL Troponin I High Sensitivity 16 </=54 ng/L Hemoglobin A1c 10.1 H <5.7 % A1C B-Type Natriuretic Peptide 85.67 0-100 pg/mL Assessment sinus tach with PACs L1 fx obesity HTN ckd pulm htn Plan/Recommendation echo done last month stable ecg and tele now is sinus tach with PACs very irregular, at risk for going to afib but not clear recommend beta giuseppe for now pt started on doac , can consider this for 30 days and if negative holter in future dc it Plan discussed with: Patient FERCHO BHATTI MD Mar 13, 2024 12:04
[2024-03-13 12:06] LABS: Protein, Urine 48.3 mg/dL (1-14)
[2024-03-13 12:08] LABS: Creatinine, Urine 92.91 mg/dL (30.0-125.0); Urine Protein/Creatinine Ratio 0.52
--- NOTE | 2024-03-13 12:23 | DVHPN2 ---
Progress Note Date Seen: Mar 13, 2024 Medical Necessity Reason Pt with a Central, PICC or Fol: No Subjective Review of Systems: RESPIRATORY:Abnormal Other Systems: O2 nasal cannula Patient seen and examined by myself today in follow-up Objective vital signs Vital Sign Date Time Temp Pulse Resp B/P (MAP) Pulse Ox O2 Delivery O2 Flow Rate FiO2 03/13/24 10:42 93 16 100 03/13/24 10:36 2.0 03/13/24 10:36 Nasal Cannula* 28 03/13/24 10:01 114/63 03/13/24 09:00 98.5 98.5 Total Intake and Output 03/12/24 03/12/24 03/13/24 15:00 23:00 07:00 Intake Total 180 ml 640 ml Output Total 200 ml Balance 180 ml 440 ml medications Current Medications Medications Dose Ordered Sig/Anish Route Start Time Stop Time Status Last Admin Dose Admin Sodium Chloride 1,000 ml @ 60 mls/hr [id number] IV 03/12/24 14:00 03/13/24 06:20 Acetaminophen/ Hydrocodone Bitart 1 tab Q4HP PRN PO 03/12/24 14:00 Ondansetron HCl 4 mg Q4HP PRN IV 03/12/24 14:00 Docusate Sodium 100 mg BIDPRN PRN PO 03/12/24 14:00 Acetaminophen 650 mg Q6HP PRN PO 03/12/24 14:00 Morphine Sulfate 2 mg Q4HPRN PRN IV 03/12/24 14:00 03/13/24 10:00 Nitroglycerin 0.4 mg Q5MINP PRN SL 03/12/24 14:00 Morphine Sulfate 2 mg Q30M PRN IV 03/12/24 14:00 Ceftriaxone Sodium 50 ml @ 100 mls/hr DAILY@09 IV 03/12/24 14:00 03/13/24 09:48 Albuterol 2.5 mg Q4HWA NEB 03/12/24 18:00 03/13/24 10:36 Ipratropium [place] 0.5 mg Q4HWA NEB 03/12/24 18:00 03/13/24 10:36 Metoprolol Tartrate 25 mg BID PO 03/12/24 22:00 03/13/24 10:01 Apixaban 2.5 mg BID PO 03/12/24 22:00 03/13/24 10:01 Diagnostic Test (Pha) 1 strip ACHS 03/12/24 17:00 03/13/24 12:15 Insulin Human Regular HS SC 03/12/24 22:00 03/12/24 22:29 Insulin Human Regular AC SC 03/12/24 17:00 03/13/24 06:16 Dextrose 50 ml UD PRN IV 03/12/24 16:45 Atorvastatin Calcium 20 mg HS PO 03/12/24 22:00 03/12/24 21:13 Finasteride 5 mg HS PO 03/12/24 22:00 03/12/24 21:14 Gabapentin 100 mg TID PO 03/12/24 22:00 03/13/24 05:51 Prednisone 10 mg DAILY PO 03/13/24 10:00 03/13/24 10:01 Tamsulosin HCl 0.4 mg QPM PO 03/12/24 18:00 03/12/24 19:39 Patient Own Medication 0.5 mg HS PO 03/12/24 22:00 Patient Own Medication 3 mg BID PO 03/12/24 22:00 Mycophenolate Mofetil 1,000 mg BID PO 03/12/24 22:00 03/13/24 10:02 Examination: LUNGS:Normal, CVS:Normal, MSK:Normal laboratory and microbiology Laboratory Tests 03/13/24 05:00 Test 03/13/24 05:00 Range/Units Serum Glucose 146 #H 74-106 mg/dL Problem List/Assessment/Plan Problem List/Assessment/Plan Acute kidney injury superimposed Chronic Kidney Disease secondary hemodynamic mediated New onset diabetes mellitus Hyperglycemia Chronic respiratory failure History of double lung transplant on immunosuppression Tachycardia Microcytic anemia Iron deficiency Recommendations Kidney function is improving Increased urine output Strict I&Os kidney ultrasound reported bilateral echogenic kidney Insulin sliding scale Resume home immunosuppression Iron replacement We will continue to follow Plan discussed with: Patient My Orders My Orders Orders - SUDEEP GUILLEN MD Procedure Category Date Status Time Kidney US 03/12/24 Resulted 19:30 Tacrolimus (Fk506) LAB 03/13/24 In Process 04:00 SUDEEP GUILLEN MD Mar 13, 2024 12:23
[2024-03-13 13:49] LABS: Rapid Influenza A Negative (Negative); Rapid Influenza B Negative (Negative)
[2024-03-13 13:51] LABS: COVID19 ANTIGEN SOFIA FIA NEGATIVE (NEGATIVE)
--- NOTE | 2024-03-13 16:43 | DVHPN2 ---
Subjective Overnight events noted. Patient was felt later improvement. 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 Medications Current Medications Medications Dose Ordered Sig/Anish Route Start Time Stop Time Status Last Admin Dose Admin Sodium Chloride 1,000 ml @ 60 mls/hr [id number] IV 03/12/24 14:00 03/13/24 06:20 60 MLS/HR Acetaminophen/ Hydrocodone Bitart 1 tab Q4HP PRN PO 03/12/24 14:00 Ondansetron HCl 4 mg Q4HP PRN IV 03/12/24 14:00 Docusate Sodium 100 mg BIDPRN PRN PO 03/12/24 14:00 Acetaminophen 650 mg Q6HP PRN PO 03/12/24 14:00 Morphine Sulfate 2 mg Q4HPRN PRN IV 03/12/24 14:00 03/13/24 10:00 2 MG Nitroglycerin 0.4 mg Q5MINP PRN SL 03/12/24 14:00 Morphine Sulfate 2 mg Q30M PRN IV 03/12/24 14:00 Ceftriaxone Sodium 50 ml @ 100 mls/hr DAILY@09 IV 03/12/24 14:00 03/13/24 09:48 100 MLS/HR Albuterol 2.5 mg Q4HWA NEB 03/12/24 18:00 03/13/24 14:53 2.5 MG Ipratropium [place] 0.5 mg Q4HWA NEB 03/12/24 18:00 03/13/24 14:53 0.5 MG Metoprolol Tartrate 25 mg BID PO 03/12/24 22:00 03/13/24 10:01 25 MG Apixaban 2.5 mg BID PO 03/12/24 22:00 03/13/24 10:01 2.5 MG Diagnostic Test (Pha) 1 strip ACHS 03/12/24 17:00 03/13/24 12:15 1 STRIP Insulin Human Regular HS SC 03/12/24 22:00 03/12/24 22:29 3 UNITS Insulin Human Regular AC SC 03/12/24 17:00 03/13/24 12:26 6 UNITS Dextrose 50 ml UD PRN IV 03/12/24 16:45 Atorvastatin Calcium 20 mg HS PO 03/12/24 22:00 03/12/24 21:13 20 MG Finasteride 5 mg HS PO 03/12/24 22:00 03/12/24 21:14 5 MG Gabapentin 100 mg TID PO 03/12/24 22:00 03/13/24 14:44 100 MG Prednisone 10 mg DAILY PO 03/13/24 10:00 03/13/24 10:01 10 MG Tamsulosin HCl 0.4 mg QPM PO 03/12/24 18:00 03/12/24 19:39 0.4 MG Patient Own Medication 0.5 mg HS PO 03/12/24 22:00 Patient Own Medication 3 mg BID PO 03/12/24 22:00 Mycophenolate Mofetil 1,000 mg BID PO 03/12/24 22:00 03/13/24 10:02 1,000 MG Ferrous Sulfate 325 mg BIDWM PO 03/13/24 18:00 Laboratory Results Laboratory Tests 03/13/24 05:00 Chemistry Test 03/13/24 05:00 Albumin 3.4 g/dL (3.2-4.8) Calcium Level 8.7 mg/dL (8.7-10.4) Total Protein 6.0 g/dL (5.7-8.2) LFT Test 03/13/24 05:00 Alanine Aminotransferase (ALT) 14 U/L (7-40) Alkaline Phosphatase 44 U/L (46-116) L Aspartate Amino Transferase (AST) 14 U/L (13-40) Total Bilirubin 0.6 mg/dL (0.2-1.0) Urinalysis Test 03/13/24 11:07 Urine Color Light-yellow (Yellow) Urine Clarity Clear (Clear) Urine pH 5.0 (5.0-9.0) Urine Specific [place] 1.017 (1.001-1.035) Urine Protein Trace (Negative) H Urine Ketones Trace (Negative) Urine Blood Negative /uL (Negative) Urine Nitrite Negative (Negative) Urine Bilirubin Negative (Negative) Urine Urobilinogen Normal mg/dL (Negative) Urine Leukocyte Esterase Negative /uL (Negative) Urine RBC <1 /hpf (0 - 3) Urine WBC 1 /hpf (0 - 3) Urine Squamous Epithelial Cells Few /hpf (<5) Urine Uric Acid Crystals Few /hpf (None Seen) Urine Bacteria Few /hpf (None Seen) H Urine Creatinine 92.91 mg/dL (30.0-125.0) Urine Protein/Creatinine Ratio 0.52 Urine Sodium 111 mmol/L (40-220) Urine Glucose 3+ mg/dL (Normal) H Urine Total Protein 48.3 mg/dL (1-14) H Assessment/Plan Assessment/Plan 78-year-old male with a known history of chronic AFib, chronic respiratory failure on home O2, COPD, diabetes mellitus type 2, hypertension, dyslipidemia, bilateral lung transplant, previous tobacco use disorder presented to the hospital with generalized eventually as currently get out of toilet seat found to have 1. Acute on chronic hypoxic respiratory failure 2. Pneumonia 3. Acute kidney injury with underlying CKD 4. COPD not in exacerbation 5. Recent L1 fracture status post found 6. Chronic AFib 7. Diabetes mellitus 8. Hypertension abdominal 9. Bilateral lung transplant -IV antibiotics, med nebs, O2 supplementation, Infectious Disease consultation appreciated -nephrology consultation if patient Plan discussed with: Patient, Other My Orders Orders - SANDY HEWITT MD Procedure Category Date Status Time Metoprolol Tartrate PHA 03/12/24 In Process Tablet (Lopressor Ta 22:00 Apixaban (Eliquis) PHA 03/12/24 In Process 22:00 Glucose Blood PHA 03/12/24 In Process (Accu-Chek Comfort 17:00 Insulin R (Human) PHA 03/12/24 In Process (Insulin R) 22:00 Insulin R (Human) PHA 03/12/24 In Process (Insulin R) 17:00 Dextrose 50% Syringe PHA 03/12/24 In Process 16:45 Atorvastatin (Lipitor) PHA 03/12/24 In Process 22:00 Finasteride Tablet PHA 03/12/24 In Process (Proscar Tablet) 22:00 Gabapentin Capsule PHA 03/12/24 In Process (Neurontin Capsule) 22:00 Prednisone Tablet PHA 03/13/24 In Process 10:00 Tamsulosin PHA 03/12/24 In Process Hydrochloride (Flomax) 18:00 (Nf) Entecavir PHA 03/12/24 In Process Monohydrate 22:00 (Nf) Tacrolimus PHA 03/12/24 In Process (Astagraf Xl) 22:00 * Cardiology Consult CONS 03/12/24 Transmitted 19:28 Mycophenolate Mofetil PHA 03/12/24 In Process (Cellcept) 22:00 * Wound Consult CONS 03/13/24 Transmitted Cover Wound With Foam CHARBEL 03/13/24 In Process Dressing 10:15 * Dietary Consult CONS 03/13/24 Transmitted 14:29 Date of Service: Mar 13, 2024 Billing Provider: SANDY HEWITT MD Common Visit Codes: NOT BILLABLE SANDY HEWITT MD Mar 13, 2024 16:43
[2024-03-13] MEDS: FERROUS SULFATE 325mg EC TAB PO SCH (17:53)
[2024-03-13] MEDS: EVEROLIMUS 0.5 MG PO SCH (22:00)
[2024-03-14] VITALS (17 sets, daily range): BP systolic 109–149; BP diastolic 63–76; PULSE 82–125; RESP 16–20; TEMP 97.3–98.9; O2SAT 95–100
--- NOTE | 2024-03-14 10:27 | DVHPN2 ---
Progress Note - Dictate Date Seen: Mar 14, 2024 Medical Necessity Reason Pt with a Central, PICC or Fol: No Subjective Patient was seen and evaluated. He complained of pain on IV site. Site is swollen/infiltrated. Antibiotic status: Azithromycin 250 ml @ 125 mls/hr [Started 03/12 - 03/13] Ceftriaxone Sodium 50 ml @ 100 mls/hr [Started 03/12 - Ongoing] Blood culture: 03/05: No growth monitored. 03/12: Renal US: 1. Atrophic right kidney and increased echogenicity of bilateral kidneys. Correlate for medical renal disease. 2. Left renal parapelvic cyst. 03/12: Chest x-ray: Worsening bilateral airspace disease especially in the left lung. Pneumonia is not excluded vital signs Vital Sign Date Time Temp Pulse Resp B/P (MAP) Pulse Ox O2 Delivery O2 Flow Rate FiO2 03/14/24 10:15 102 18 99 03/14/24 10:09 Nasal Cannula 2.0 03/14/24 10:09 28 03/14/24 09:14 109/67 03/14/24 09:00 98.4 98.4 Total Intake and Output 03/13/24 03/13/24 03/14/24 15:00 23:00 07:00 Intake Total 50 ml 1890 ml 680 ml Output Total 500 ml 400 ml Balance 50 ml 1390 ml 280 ml medications Current Medications Medications Dose Ordered Sig/Anish Route Start Time Stop Time Status Last Admin Dose Admin Sodium Chloride 1,000 ml @ 60 mls/hr [id number] IV 03/12/24 14:00 03/14/24 01:45 60 MLS/HR Acetaminophen/ Hydrocodone Bitart 1 tab Q4HP PRN PO 03/12/24 14:00 Ondansetron HCl 4 mg Q4HP PRN IV 03/12/24 14:00 Docusate Sodium 100 mg BIDPRN PRN PO 03/12/24 14:00 Acetaminophen 650 mg Q6HP PRN PO 03/12/24 14:00 Morphine Sulfate 2 mg Q4HPRN PRN IV 03/12/24 14:00 03/13/24 10:00 2 MG Nitroglycerin 0.4 mg Q5MINP PRN SL 03/12/24 14:00 Morphine Sulfate 2 mg Q30M PRN IV 03/12/24 14:00 Ceftriaxone Sodium 50 ml @ 100 mls/hr DAILY@09 IV 03/12/24 14:00 03/14/24 09:10 100 MLS/HR Albuterol 2.5 mg Q4HWA NEB 03/12/24 18:00 03/14/24 10:09 2.5 MG Ipratropium [place] 0.5 mg Q4HWA NEB 03/12/24 18:00 03/14/24 10:09 0.5 MG Metoprolol Tartrate 25 mg BID PO 03/12/24 22:00 03/14/24 09:14 25 MG Apixaban 2.5 mg BID PO 03/12/24 22:00 03/14/24 09:08 2.5 MG Diagnostic Test (Pha) 1 strip ACHS 03/12/24 17:00 03/14/24 06:15 1 STRIP Insulin Human Regular HS SC 03/12/24 22:00 03/13/24 22:00 6 UNITS Insulin Human Regular AC SC 03/12/24 17:00 03/14/24 07:00 3 UNITS Dextrose 50 ml UD PRN IV 03/12/24 16:45 Atorvastatin Calcium 20 mg HS PO 03/12/24 22:00 03/13/24 23:20 20 MG Finasteride 5 mg HS PO 03/12/24 22:00 03/13/24 23:20 5 MG Gabapentin 100 mg TID PO 03/12/24 22:00 03/14/24 06:15 100 MG Prednisone 10 mg DAILY PO 03/13/24 10:00 03/14/24 09:08 10 MG Tamsulosin HCl 0.4 mg QPM PO 03/12/24 18:00 03/13/24 17:53 0.4 MG Patient Own Medication 0.5 mg HS PO 03/12/24 22:00 Patient Own Medication 3 mg BID PO 03/12/24 22:00 Mycophenolate Mofetil 1,000 mg BID PO 03/12/24 22:00 03/14/24 09:08 1,000 MG Ferrous Sulfate 325 mg BIDWM PO 03/13/24 18:00 03/14/24 09:07 325 MG Patient Own Medication 4 BID PO 03/13/24 22:00 03/14/24 09:09 4 objective General: Patient appears alert, comfortable and well-appearing. HEENT: Normocephalic, atraumatic, Sclera anicteric, conjunctiva clear, No nasal discharge or congestion. Mucous membranes moist, no tonsillar erythema or exudates. Neck: No cervical lymphadenopathy or masses. No neck stiffness. Lungs: Breath sounds clear bilaterally, no wheezes, rales, or rhonchi. No use of accessory muscles or respiratory distress. Cardiovascular: Regular rate and rhythm, no murmurs, rubs, or gallops. Abdomen: Soft, non-tender, non-distended. Bowel sounds present in all quadrants. No hepatosplenomegaly or masses. Skin: No rash, petechiae, or ecchymosis. Extremities: No edema, cyanosis, or clubbing. No tenderness to palpation, erythema, or swelling in joints. No signs of deep vein thrombosis (DVT). Neurologic: Patient is alert and oriented to person, place, and time. Cranial nerves II-XII intact. Motor strength 5/5 bilaterally in all extremities. laboratory and microbiology Laboratory Tests 03/13/24 05:00 Test 03/13/24 05:00 Range/Units Serum Glucose 146 #H 74-106 mg/dL Assessment/Plan Patient is a 78-year-old male presented to the hospital with: 1. Acute on chronic hypoxic respiratory failure 2. Pneumonia 3. Acute kidney injury with underlying CKD 4. COPD not in exacerbation 5. Recent L1 fracture status post found 6. Chronic AFib 7. Diabetes mellitus 8. Hypertension abdominal 9. bilateral lung transplant? Patient is a poor historian Recommendations: --Ordered sputum culture --MRSA screening: Negative --Reviewed chest x-ray and renal ultrasound. --We will monitor Thank you for consult. MARTA ALBARRAN MD Mar 14, 2024 10:27
--- NOTE | 2024-03-14 10:46 | DVHPN2 ---
Progress Note Date Seen: Mar 14, 2024 Medical Necessity Reason Pt with a Central, PICC or Fol: No Subjective Patient reports: No new complaints Other Systems: Patient seen and examined by myself today in follow-up Objective vital signs Vital Sign Date Time Temp Pulse Resp B/P (MAP) Pulse Ox O2 Delivery O2 Flow Rate FiO2 03/14/24 10:15 102 18 99 03/14/24 10:09 Nasal Cannula 2.0 03/14/24 10:09 28 03/14/24 09:14 109/67 03/14/24 09:00 98.4 98.4 Total Intake and Output 03/13/24 03/13/24 03/14/24 15:00 23:00 07:00 Intake Total 50 ml 1890 ml 680 ml Output Total 500 ml 400 ml Balance 50 ml 1390 ml 280 ml medications Current Medications Medications Dose Ordered Sig/Anish Route Start Time Stop Time Status Last Admin Dose Admin Sodium Chloride 1,000 ml @ 60 mls/hr [id number] IV 03/12/24 14:00 03/14/24 01:45 60 MLS/HR Acetaminophen/ Hydrocodone Bitart 1 tab Q4HP PRN PO 03/12/24 14:00 Ondansetron HCl 4 mg Q4HP PRN IV 03/12/24 14:00 Docusate Sodium 100 mg BIDPRN PRN PO 03/12/24 14:00 Acetaminophen 650 mg Q6HP PRN PO 03/12/24 14:00 Morphine Sulfate 2 mg Q4HPRN PRN IV 03/12/24 14:00 03/13/24 10:00 2 MG Nitroglycerin 0.4 mg Q5MINP PRN SL 03/12/24 14:00 Morphine Sulfate 2 mg Q30M PRN IV 03/12/24 14:00 Ceftriaxone Sodium 50 ml @ 100 mls/hr DAILY@09 IV 03/12/24 14:00 03/14/24 09:10 100 MLS/HR Albuterol 2.5 mg Q4HWA NEB 03/12/24 18:00 03/14/24 10:09 2.5 MG Ipratropium [place] 0.5 mg Q4HWA NEB 03/12/24 18:00 03/14/24 10:09 0.5 MG Metoprolol Tartrate 25 mg BID PO 03/12/24 22:00 03/14/24 09:14 25 MG Apixaban 2.5 mg BID PO 03/12/24 22:00 03/14/24 09:08 2.5 MG Diagnostic Test (Pha) 1 strip ACHS 03/12/24 17:00 03/14/24 06:15 1 STRIP Insulin Human Regular HS SC 03/12/24 22:00 03/13/24 22:00 6 UNITS Insulin Human Regular AC SC 03/12/24 17:00 03/14/24 07:00 3 UNITS Dextrose 50 ml UD PRN IV 03/12/24 16:45 Atorvastatin Calcium 20 mg HS PO 03/12/24 22:00 03/13/24 23:20 20 MG Finasteride 5 mg HS PO 03/12/24 22:00 03/13/24 23:20 5 MG Gabapentin 100 mg TID PO 03/12/24 22:00 03/14/24 06:15 100 MG Prednisone 10 mg DAILY PO 03/13/24 10:00 03/14/24 09:08 10 MG Tamsulosin HCl 0.4 mg QPM PO 03/12/24 18:00 03/13/24 17:53 0.4 MG Patient Own Medication 0.5 mg HS PO 03/12/24 22:00 Patient Own Medication 3 mg BID PO 03/12/24 22:00 Mycophenolate Mofetil 1,000 mg BID PO 03/12/24 22:00 03/14/24 09:08 1,000 MG Ferrous Sulfate 325 mg BIDWM PO 03/13/24 18:00 03/14/24 09:07 325 MG Patient Own Medication 4 BID PO 03/13/24 22:00 03/14/24 09:09 4 Examination: LUNGS:Normal, CVS:Normal, MSK:Normal laboratory and microbiology Laboratory Tests 03/13/24 05:00 Test 03/13/24 05:00 Range/Units Serum Glucose 146 #H 74-106 mg/dL Problem List/Assessment/Plan Problem List/Assessment/Plan Acute kidney injury superimposed Chronic Kidney Disease IIIb secondary hemodynamic mediated Uncontrolled diabetes mellitus Hyperglycemia Chronic respiratory failure History of double lung transplant on immunosuppression Tachycardia Microcytic anemia Iron deficiency Recommendations Kidney function is improving Increased urine output Strict I&Os kidney ultrasound reported bilateral echogenic kidney Insulin sliding scale Resume home immunosuppression Iron replacement We will continue to follow Plan discussed with: Patient My Orders My Orders Orders - SUDEEP GUILLEN MD Procedure Category Date Status Time Ferrous Sulfate Tablet PHA 03/13/24 In Process 18:00 SUDEEP GUILLEN MD Mar 14, 2024 10:45
[2024-03-14] MEDS ORDERED: APIX2.5T PO (15:51)
[2024-03-14] MEDS ORDERED: AUG875T PO (15:51)
--- NOTE | 2024-03-14 15:55 | DVHDS2 ---
Discharge Summary Date of Admission Mar 12, 2024 at 13:47 Date of Discharge: Mar 14, 2024 Labs/Diagnostic Data: Laboratory Results Test 03/14/24 11:40 03/13/24 12:40 03/13/24 11:07 03/13/24 05:00 POC Glucose 236 mg/dl (70-106) Influenza Type A Antigen Negative (Negative) Influenza Type B Antigen Negative (Negative) SARS-CoV-2 Antigen (Rapid) Negative (NEGATIVE) Urine Color Light-yellow (Yellow) Urine Clarity Clear (Clear) Urine pH 5.0 (5.0-9.0) Urine Specific [place] 1.017 (1.001-1.035) Urine Protein Trace (Negative) Urine Ketones Trace (Negative) Urine Blood Negative /uL (Negative) Urine Nitrite Negative (Negative) Urine Bilirubin Negative (Negative) Urine Urobilinogen Normal mg/dL (Negative) Urine Leukocyte Esterase Negative /uL (Negative) Urine RBC <1 /hpf (0 - 3) Urine WBC 1 /hpf (0 - 3) Urine Squamous Epithelial Cells Few /hpf (<5) Urine Uric Acid Crystals Few /hpf (None Seen) Urine Bacteria Few /hpf (None Seen) Urine Creatinine 92.91 mg/dL (30.0-125.0) Urine Protein/Creatinine Ratio 0.52 Urine Sodium 111 mmol/L (40-220) Urine Glucose 3+ mg/dL (Normal) Urine Total Protein 48.3 mg/dL (1-14) White Blood Count 4.8 10^3/uL (4.4-10.8) Red Blood Count 4.37 10^6/uL (4.5-5.90) Hemoglobin 8.2 g/dL (13.5-17.5) Hematocrit 27.2 % (41.0-53.0) Mean Corpuscular Volume 62.1 fL (80.0-100.0) Mean Corpuscular Hemoglobin 18.9 pg (28.0-32.0) Mean Corpuscular Hemoglobin Concent 30.4 g/dL (32.0-36.0) Red Cell Distribution Width 19.0 % (11.8-14.3) Platelet Count 182 10^3/uL (140-450) Mean Platelet Volume 8.7 fL (6.9-10.8) Neutrophils (%) (Auto) 63.2 % (37.0-80.0) Lymphocytes (%) (Auto) 23.7 % (10.0-50.0) Monocytes (%) (Auto) 10.5 % (0.0-12.0) Eosinophils (%) (Auto) 1.4 % (0.0-7.0) Basophils (%) (Auto) 1.2 % (0.0-2.0) Neutrophils # (Auto) 3.0 10 ^3/uL (1.6-8.6) Lymphocytes # (Auto) 1.1 10 ^3/uL (0.4-5.4) Monocytes # (Auto) 0.5 10 ^3/uL (0-1.3) Eosinophils # (Auto) 0.1 10 ^3/uL (0-0.8) Basophils # (Auto) 0.1 10 ^3/uL (0-0.2) Nucleated Red Blood Cells 0.4 % Platelet Estimate Adequate Tear Drop Cells Few Ovalocytes Moderate Mccleary Cells Few Sodium Level 143 mmol/L (136-145) Potassium Level 4.3 mmol/L (3.5-5.1) Chloride Level 111 mmol/L (98-107) Carbon Dioxide Level 23 mmol/L (20-31) Anion Gap 9 (5-15) Blood Urea Nitrogen 32 mg/dL (9-23) Creatinine 2.18 mg/dL (0.700-1.30) Glomerular Filtration Rate Calc 30 mL/min (>90) BUN/Creatinine Ratio 14.7 (10.0-20.0) Serum Glucose 146 mg/dL (74-106) Calcium Level 8.7 mg/dL (8.7-10.4) Total Bilirubin 0.6 mg/dL (0.2-1.0) Aspartate Amino Transferase (AST) 14 U/L (13-40) Alanine Aminotransferase (ALT) 14 U/L (7-40) Alkaline Phosphatase 44 U/L (46-116) Total Protein 6.0 g/dL (5.7-8.2) Albumin 3.4 g/dL (3.2-4.8) Test 03/12/24 20:15 03/12/24 14:59 03/12/24 06:15 03/12/24 03:15 Iron Level 27 ug/dL (65-175) Total Iron Binding Capacity 197 ug/dL (250-425) Percent Iron Saturation 13.7 % (20-55) Ferritin 567.7 ng/mL (22-322) Vitamin D 25-Hydroxy 84.6 ng/mL (30.0-100) Uric Acid 10.0 mg/dL (3.7-9.2) Phosphorus Level 2.1 mg/dL (2.4-5.1) Magnesium Level 2.2 mg/dL (1.6-2.6) Troponin I High Sensitivity 16 ng/L (</=54) Hemoglobin A1c 10.1 % A1C (<5.7) B-Type Natriuretic Peptide 85.67 pg/mL (0-100) Other Laboratory Tests 03/13/24 05:00 Brief Hx & Hospital Course: 78-year-old male with a known history of paroxysmal AFib, chronic respiratory failure on home O2, COPD, diabetes mellitus type 2, hypertension, dyslipidemia, bilateral lung transplant, presented to the hospital with generalized weakness as he could not get out of toilet seat found to have acute on chronic hypoxic respiratory failure. Secondary to pneumonia, also acute kidney injury with underlying CKD. Patient was treated with the IV antibiotics. Patient was given gentle IV hydration as well. Patient has a recent history of L1 fracture was sent home recently. Patient does have bilateral lung transplant resumed on immunosuppressive medications. Patient is currently at baseline and requesting to go home. Patient was being seen by Cardiology during the hospital stay because of arrhythmias eventually Eliquis was recommended low-dose for primary prevention of stroke. Patient was explained current plan of care including life-threatening bleeding disability explained to the patient while he is on Eliquis, he understand verbalized understanding and agreed to plan. Also cardiology recommended outpatient Holter monitoring and if there was no arrhythmias discontinue Eliquis in 30 days. Patient will be given p.o. antibiotics upon discharge. Condition at Discharge: Stable Final Diagnosis/Problems List 78-year-old male with a known history of chronic AFib, chronic respiratory failure on home O2, COPD, diabetes mellitus type 2, hypertension, dyslipidemia, bilateral lung transplant, previous tobacco use disorder presented to the hospital with generalized eventually as currently get out of toilet seat found to have 1. Acute on chronic hypoxic respiratory failure 2. Pneumonia 3. Acute kidney injury with underlying CKD 4. COPD not in exacerbation 5. Recent L1 fracture status post found 6. Chronic AFib 7. Diabetes mellitus 8. Hypertension abdominal 9. Bilateral lung transplant Discharge Disposition: Home with [facility] Services [facility] Discharge Will this Physician continue t: No Discharge Instruct/Medications Diet: Cardiac 2g Na,low cholest Diet comment: 1999 ADA diet Activity: No Restrictions, As Tolerated Activity comment: Activity as tolerated Follow Up/Referral: Follow up with the PCP in 1-2 weeks Follow up with Dr. 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 French in one week for Holter monitoring to assess any cardiac arrhythmia otherwise DC Eliquis in 30 days. Medications: Eliquis, Augmentin as prescribed Discharge Statement: "Patient was advised to return to the ER or call 911 if any headaches, dizziness, shortness of breath, chest pain, abdominal pain, bleeding, fevers, or worsening of medical condition. Patient was counseled about treatment plan, medications, possible side effects, patientverbalized understanding. All questions were answered to the best of my ability. This discharge took greater then 30 minutes in planning, reviewing documentation, counseling the patient, and discussing with other team members." ASSESSMENT ASSESSMENT Assessment 78-year-old male with a known history of chronic AFib, chronic respiratory failure on home O2, COPD, diabetes mellitus type 2, hypertension, dyslipidemia, bilateral lung transplant, previous tobacco use disorder presented to the hospital with generalized eventually as currently get out of toilet seat found to have 1. Acute on chronic hypoxic respiratory failure 2. Pneumonia 3. Acute kidney injury with underlying CKD 4. COPD not in exacerbation 5. Recent L1 fracture status post found 6. Chronic AFib 7. Diabetes mellitus 8. Hypertension abdominal 9. Bilateral lung transplant Date of Service: Mar 14, 2024 Billing Provider: SANDY HEWITT MD Common Visit Codes: NOT BILLABLE SANDY HEWITT MD Mar 14, 2024 15:55
[2024-03-15] VITALS (24 sets, daily range): BP systolic 103–141; BP diastolic 67–89; PULSE 93–121; RESP 16–20; TEMP 98–98.6; O2SAT 90–100
--- NOTE | 2024-03-15 11:01 | DVHPN2 ---
Progress Note Date Seen: Mar 15, 2024 Medical Necessity Reason Pt with a Central, PICC or Fol: No Subjective Patient reports: No new complaints Other Systems: Patient seen and examined by myself today in follow-up, O2 nasal cannula Objective vital signs Vital Sign Date Time Temp Pulse Resp B/P (MAP) Pulse Ox O2 Delivery O2 Flow Rate FiO2 03/15/24 10:38 103 16 03/15/24 10:33 99 03/15/24 10:07 107/65 03/15/24 10:00 Nasal Cannula 2.0 03/15/24 10:00 28 03/15/24 05:00 98.5 98.5 Total Intake and Output 03/14/24 03/14/24 03/15/24 15:00 23:00 07:00 Intake Total 50 ml 700 ml 800 ml Output Total 350 ml 400 ml Balance 50 ml 350 ml 400 ml medications Current Medications Medications Dose Ordered Sig/Anish Route Start Time Stop Time Status Last Admin Dose Admin Sodium Chloride 1,000 ml @ 60 mls/hr [id number] IV 03/12/24 14:00 03/15/24 08:49 60 MLS/HR Acetaminophen/ Hydrocodone Bitart 1 tab Q4HP PRN PO 03/12/24 14:00 Ondansetron HCl 4 mg Q4HP PRN IV 03/12/24 14:00 Docusate Sodium 100 mg BIDPRN PRN PO 03/12/24 14:00 Acetaminophen 650 mg Q6HP PRN PO 03/12/24 14:00 Morphine Sulfate 2 mg Q4HPRN PRN IV 03/12/24 14:00 03/15/24 07:26 2 MG Nitroglycerin 0.4 mg Q5MINP PRN SL 03/12/24 14:00 Morphine Sulfate 2 mg Q30M PRN IV 03/12/24 14:00 Ceftriaxone Sodium 50 ml @ 100 mls/hr DAILY@09 IV 03/12/24 14:00 03/15/24 08:49 100 MLS/HR Albuterol 2.5 mg Q4HWA NEB 03/12/24 18:00 03/15/24 10:31 2.5 MG Ipratropium [place] 0.5 mg Q4HWA NEB 03/12/24 18:00 03/15/24 10:31 0.5 MG Metoprolol Tartrate 25 mg BID PO 03/12/24 22:00 03/15/24 10:07 25 MG Apixaban 2.5 mg BID PO 03/12/24 22:00 03/15/24 10:07 2.5 MG Diagnostic Test (Pha) 1 strip ACHS 03/12/24 17:00 03/15/24 06:18 1 STRIP Insulin Human Regular HS SC 03/12/24 22:00 03/14/24 22:00 4 UNITS Insulin Human Regular AC SC 03/12/24 17:00 03/14/24 17:00 12 UNITS Dextrose 50 ml UD PRN IV 03/12/24 16:45 Atorvastatin Calcium 20 mg HS PO 03/12/24 22:00 03/14/24 21:42 20 MG Finasteride 5 mg HS PO 03/12/24 22:00 03/14/24 21:38 5 MG Gabapentin 100 mg TID PO 03/12/24 22:00 03/15/24 05:23 100 MG Prednisone 10 mg DAILY PO 03/13/24 10:00 03/15/24 10:07 10 MG Tamsulosin HCl 0.4 mg QPM PO 03/12/24 18:00 03/14/24 18:26 0.4 MG Patient Own Medication 0.5 mg HS PO 03/12/24 22:00 Patient Own Medication 3 mg BID PO 03/12/24 22:00 Mycophenolate Mofetil 1,000 mg BID PO 03/12/24 22:00 03/15/24 10:09 1,000 MG Ferrous Sulfate 325 mg BIDWM PO 03/13/24 18:00 03/15/24 08:48 325 MG Patient Own Medication 4 BID PO 03/13/24 22:00 03/15/24 10:12 4 Examination: LUNGS:Normal, CVS:Normal, MSK:Normal laboratory and microbiology Laboratory Tests 03/13/24 05:00 Test 03/13/24 05:00 Range/Units Serum Glucose 146 #H 74-106 mg/dL Microbiology Date/Time Source Procedure Growth Status 03/13/24 12:40 Nose MRSA Screen - Final Complete Problem List/Assessment/Plan Problem List/Assessment/Plan Acute kidney injury superimposed Chronic Kidney Disease IIIb secondary hemodynamic mediated Uncontrolled diabetes mellitus Hyperglycemia Chronic respiratory failure 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
--- NOTE | 2024-03-15 13:11 | DVHPN2 ---
Progress Note - Dictate Date Seen: Mar 15, 2024 Medical Necessity Reason Pt with a Central, PICC or Fol: No Subjective Patient was seen and evaluated. He complained of pain on IV site. Site is swollen/infiltrated. Antibiotic status: Azithromycin 250 ml @ 125 mls/hr [Started 03/12 - 03/13] Ceftriaxone Sodium 50 ml @ 100 mls/hr [Started 03/12 - Ongoing] Blood culture: 03/05: No growth monitored. 03/12: Renal US: 1. Atrophic right kidney and increased echogenicity of bilateral kidneys. Correlate for medical renal disease. 2. Left renal parapelvic cyst. 03/12: Chest x-ray: Worsening bilateral airspace disease especially in the left lung. Pneumonia is not excluded vital signs Vital Sign Date Time Temp Pulse Resp B/P (MAP) Pulse Ox O2 Delivery O2 Flow Rate FiO2 03/15/24 10:38 103 16 03/15/24 10:33 99 03/15/24 10:07 107/65 03/15/24 10:00 Nasal Cannula 2.0 03/15/24 10:00 28 03/15/24 05:00 98.5 98.5 Total Intake and Output 03/14/24 03/14/24 03/15/24 15:00 23:00 07:00 Intake Total 50 ml 700 ml 800 ml Output Total 350 ml 400 ml Balance 50 ml 350 ml 400 ml medications Current Medications Medications Dose Ordered Sig/Anish Route Start Time Stop Time Status Last Admin Dose Admin Sodium Chloride 1,000 ml @ 60 mls/hr [id number] IV 03/12/24 14:00 03/15/24 08:49 60 MLS/HR Acetaminophen/ Hydrocodone Bitart 1 tab Q4HP PRN PO 03/12/24 14:00 Ondansetron HCl 4 mg Q4HP PRN IV 03/12/24 14:00 Docusate Sodium 100 mg BIDPRN PRN PO 03/12/24 14:00 Acetaminophen 650 mg Q6HP PRN PO 03/12/24 14:00 Morphine Sulfate 2 mg Q4HPRN PRN IV 03/12/24 14:00 03/15/24 07:26 2 MG Nitroglycerin 0.4 mg Q5MINP PRN SL 03/12/24 14:00 Morphine Sulfate 2 mg Q30M PRN IV 03/12/24 14:00 Ceftriaxone Sodium 50 ml @ 100 mls/hr DAILY@09 IV 03/12/24 14:00 03/15/24 08:49 100 MLS/HR Albuterol 2.5 mg Q4HWA NEB 03/12/24 18:00 03/15/24 10:31 2.5 MG Ipratropium [place] 0.5 mg Q4HWA NEB 03/12/24 18:00 03/15/24 10:31 0.5 MG Metoprolol Tartrate 25 mg BID PO 03/12/24 22:00 03/15/24 10:07 25 MG Apixaban 2.5 mg BID PO 03/12/24 22:00 03/15/24 10:07 2.5 MG Diagnostic Test (Pha) 1 strip ACHS 03/12/24 17:00 03/15/24 11:40 1 STRIP Insulin Human Regular HS SC 03/12/24 22:00 03/14/24 22:00 4 UNITS Insulin Human Regular AC SC 03/12/24 17:00 03/15/24 11:43 6 UNITS Dextrose 50 ml UD PRN IV 03/12/24 16:45 Atorvastatin Calcium 20 mg HS PO 03/12/24 22:00 03/14/24 21:42 20 MG Finasteride 5 mg HS PO 03/12/24 22:00 03/14/24 21:38 5 MG Gabapentin 100 mg TID PO 03/12/24 22:00 03/15/24 05:23 100 MG Prednisone 10 mg DAILY PO 03/13/24 10:00 03/15/24 10:07 10 MG Tamsulosin HCl 0.4 mg QPM PO 03/12/24 18:00 03/14/24 18:26 0.4 MG Patient Own Medication 0.5 mg HS PO 03/12/24 22:00 Patient Own Medication 3 mg BID PO 03/12/24 22:00 Mycophenolate Mofetil 1,000 mg BID PO 03/12/24 22:00 03/15/24 10:09 1,000 MG Ferrous Sulfate 325 mg BIDWM PO 03/13/24 18:00 03/15/24 08:48 325 MG Patient Own Medication 4 BID PO 03/13/24 22:00 03/15/24 10:12 4 objective General: Patient appears alert, comfortable and well-appearing. HEENT: Normocephalic, atraumatic, Sclera anicteric, conjunctiva clear, No nasal discharge or congestion. Mucous membranes moist, no tonsillar erythema or exudates. Neck: No cervical lymphadenopathy or masses. No neck stiffness. Lungs: Breath sounds clear bilaterally, no wheezes, rales, or rhonchi. No use of accessory muscles or respiratory distress. Cardiovascular: Regular rate and rhythm, no murmurs, rubs, or gallops. Abdomen: Soft, non-tender, non-distended. Bowel sounds present in all quadrants. No hepatosplenomegaly or masses. Skin: No rash, petechiae, or ecchymosis. Extremities: No edema, cyanosis, or clubbing. No tenderness to palpation, erythema, or swelling in joints. No signs of deep vein thrombosis (DVT). Neurologic: Patient is alert and oriented to person, place, and time. Cranial nerves II-XII intact. Motor strength 5/5 bilaterally in all extremities. laboratory and microbiology Laboratory Tests 03/13/24 05:00 Test 03/13/24 05:00 Range/Units Serum Glucose 146 #H 74-106 mg/dL Assessment/Plan Patient is a 78-year-old male presented to the hospital with: 1. Acute on chronic hypoxic respiratory failure 2. Pneumonia 3. Acute kidney injury with underlying CKD 4. COPD not in exacerbation 5. Recent L1 fracture status post found 6. Chronic AFib 7. Diabetes mellitus 8. Hypertension abdominal 9. bilateral lung transplant? Patient is a poor historian Recommendations: --Ordered sputum culture --MRSA screening: Negative --Reviewed chest x-ray and renal ultrasound. --We will monitor Thank you for consult. MARTA ALBARRAN MD Mar 15, 2024 13:11
[2024-03-16] VITALS (15 sets, daily range): BP systolic 111–140; BP diastolic 64–81; PULSE 84–108; RESP 16–20; TEMP 97.5–98.7; O2SAT 95–100
[2024-03-16] MEDS: HYDROcodone-ACET 5/325MG TAB PO PRN (10:45)
--- NOTE | 2024-03-16 11:18 | DVHPN2 ---
Progress Note - Dictate Date Seen: Mar 16, 2024 Medical Necessity Reason Pt with a Central, PICC or Fol: No vital signs Vital Sign Date Time Temp Pulse Resp B/P (MAP) Pulse Ox O2 Delivery O2 Flow Rate FiO2 03/16/24 11:08 106 20 99 03/16/24 11:02 Nasal Cannula* 2 28 03/16/24 10:45 115/64 03/16/24 09:39 98.0 98.0 Total Intake and Output 03/15/24 03/15/24 03/16/24 15:00 23:00 07:00 Intake Total 80 ml 720 ml 300 ml Output Total 850 ml 300 ml Balance 80 ml -130 ml 0 ml medications Current Medications Medications Dose Ordered Sig/Anish Route Start Time Stop Time Status Last Admin Dose Admin Sodium Chloride 1,000 ml @ 60 mls/hr [id number] IV 03/12/24 14:00 03/16/24 02:55 60 MLS/HR Acetaminophen/ Hydrocodone Bitart 1 tab Q4HP PRN PO 03/12/24 14:00 03/16/24 10:45 1 TAB Ondansetron HCl 4 mg Q4HP PRN IV 03/12/24 14:00 Docusate Sodium 100 mg BIDPRN PRN PO 03/12/24 14:00 Acetaminophen 650 mg Q6HP PRN PO 03/12/24 14:00 Morphine Sulfate 2 mg Q4HPRN PRN IV 03/12/24 14:00 03/15/24 07:26 2 MG Nitroglycerin 0.4 mg Q5MINP PRN SL 03/12/24 14:00 Morphine Sulfate 2 mg Q30M PRN IV 03/12/24 14:00 Ceftriaxone Sodium 50 ml @ 100 mls/hr DAILY@09 IV 03/12/24 14:00 03/16/24 10:44 100 MLS/HR Albuterol 2.5 mg Q4HWA NEB 03/12/24 18:00 03/16/24 11:02 2.5 MG Ipratropium [place] 0.5 mg Q4HWA NEB 03/12/24 18:00 03/16/24 11:01 0.5 MG Metoprolol Tartrate 25 mg BID PO 03/12/24 22:00 03/16/24 10:45 25 MG Apixaban 2.5 mg BID PO 03/12/24 22:00 03/16/24 10:44 2.5 MG Diagnostic Test (Pha) 1 strip ACHS 03/12/24 17:00 03/16/24 06:54 1 STRIP Insulin Human Regular HS SC 03/12/24 22:00 03/15/24 23:06 2 UNITS Insulin Human Regular AC SC 03/12/24 17:00 03/15/24 17:10 6 UNITS Dextrose 50 ml UD PRN IV 03/12/24 16:45 Atorvastatin Calcium 20 mg HS PO 03/12/24 22:00 03/15/24 22:59 20 MG Finasteride 5 mg HS PO 03/12/24 22:00 03/15/24 22:58 5 MG Gabapentin 100 mg TID PO 03/12/24 22:00 03/16/24 05:37 100 MG Prednisone 10 mg DAILY PO 03/13/24 10:00 03/16/24 10:44 10 MG Tamsulosin HCl 0.4 mg QPM PO 03/12/24 18:00 03/15/24 17:54 0.4 MG Patient Own Medication 0.5 mg HS PO 03/12/24 22:00 Patient Own Medication 3 mg BID PO 03/12/24 22:00 Mycophenolate Mofetil 1,000 mg BID PO 03/12/24 22:00 03/15/24 10:09 1,000 MG Ferrous Sulfate 325 mg BIDWM PO 03/13/24 18:00 03/16/24 08:24 325 MG Patient Own Medication 4 BID PO 03/13/24 22:00 03/16/24 10:55 4 objective LUNGS:Normal, CVS:Normal, MSK:Normal laboratory and microbiology Laboratory Tests 03/13/24 05:00 Test 03/13/24 05:00 Range/Units Serum Glucose 146 #H 74-106 mg/dL Assessment/Plan Acute kidney injury superimposed Chronic Kidney Disease IIIb secondary hemodynamic mediated Uncontrolled diabetes mellitus Hyperglycemia Chronic respiratory failure 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
--- NOTE | 2024-03-16 12:59 | DVHPN2 ---
Progress Note - Dictate Date Seen: Mar 16, 2024 Medical Necessity Reason Pt with a Central, PICC or Fol: No Subjective Patient was seen and evaluated. Patient on 2 LPM O2 via NC. No S/S of distress/SOB or pain Antibiotic status: Azithromycin 250 ml @ 125 mls/hr [Started 03/12 - 03/13] Ceftriaxone Sodium 50 ml @ 100 mls/hr [Started 03/12 - Ongoing] Blood culture: 03/05: No growth monitored. 03/12: Renal US: 1. Atrophic right kidney and increased echogenicity of bilateral kidneys. Correlate for medical renal disease. 2. Left renal parapelvic cyst. 03/12: Chest x-ray: Worsening bilateral airspace disease especially in the left lung. Pneumonia is not excluded vital signs Vital Sign Date Time Temp Pulse Resp B/P (MAP) Pulse Ox O2 Delivery O2 Flow Rate FiO2 03/16/24 11:08 106 20 99 03/16/24 11:02 Nasal Cannula* 2 28 03/16/24 10:45 115/64 03/16/24 09:39 98.0 98.0 Total Intake and Output 03/15/24 03/15/24 03/16/24 15:00 23:00 07:00 Intake Total 80 ml 720 ml 300 ml Output Total 850 ml 300 ml Balance 80 ml -130 ml 0 ml medications Current Medications Medications Dose Ordered Sig/Anish Route Start Time Stop Time Status Last Admin Dose Admin Sodium Chloride 1,000 ml @ 60 mls/hr [id number] IV 03/12/24 14:00 03/16/24 02:55 60 MLS/HR Acetaminophen/ Hydrocodone Bitart 1 tab Q4HP PRN PO 03/12/24 14:00 03/16/24 10:45 1 TAB Ondansetron HCl 4 mg Q4HP PRN IV 03/12/24 14:00 Docusate Sodium 100 mg BIDPRN PRN PO 03/12/24 14:00 Acetaminophen 650 mg Q6HP PRN PO 03/12/24 14:00 Morphine Sulfate 2 mg Q4HPRN PRN IV 03/12/24 14:00 03/15/24 07:26 2 MG Nitroglycerin 0.4 mg Q5MINP PRN SL 03/12/24 14:00 Morphine Sulfate 2 mg Q30M PRN IV 03/12/24 14:00 Ceftriaxone Sodium 50 ml @ 100 mls/hr DAILY@09 IV 03/12/24 14:00 03/16/24 10:44 100 MLS/HR Albuterol 2.5 mg Q4HWA NEB 03/12/24 18:00 03/16/24 11:02 2.5 MG Ipratropium [place] 0.5 mg Q4HWA NEB 03/12/24 18:00 03/16/24 11:01 0.5 MG Metoprolol Tartrate 25 mg BID PO 03/12/24 22:00 03/16/24 10:45 25 MG Apixaban 2.5 mg BID PO 03/12/24 22:00 03/16/24 10:44 2.5 MG Diagnostic Test (Pha) 1 strip ACHS 03/12/24 17:00 03/16/24 12:51 1 STRIP Insulin Human Regular HS SC 03/12/24 22:00 03/15/24 23:06 2 UNITS Insulin Human Regular AC SC 03/12/24 17:00 03/16/24 12:48 6 UNITS Dextrose 50 ml UD PRN IV 03/12/24 16:45 Atorvastatin Calcium 20 mg HS PO 03/12/24 22:00 03/15/24 22:59 20 MG Finasteride 5 mg HS PO 03/12/24 22:00 03/15/24 22:58 5 MG Gabapentin 100 mg TID PO 03/12/24 22:00 03/16/24 05:37 100 MG Prednisone 10 mg DAILY PO 03/13/24 10:00 03/16/24 10:44 10 MG Tamsulosin HCl 0.4 mg QPM PO 03/12/24 18:00 03/15/24 17:54 0.4 MG Patient Own Medication 0.5 mg HS PO 03/12/24 22:00 Patient Own Medication 3 mg BID PO 03/12/24 22:00 Mycophenolate Mofetil 1,000 mg BID PO 03/12/24 22:00 03/15/24 10:09 1,000 MG Ferrous Sulfate 325 mg BIDWM PO 03/13/24 18:00 03/16/24 08:24 325 MG Patient Own Medication 4 BID PO 03/13/24 22:00 03/16/24 10:55 4 objective General: Patient appears alert, comfortable and well-appearing. HEENT: Normocephalic, atraumatic, Sclera anicteric, conjunctiva clear, No nasal discharge or congestion. Mucous membranes moist, no tonsillar erythema or exudates. Neck: No cervical lymphadenopathy or masses. No neck stiffness. Lungs: Breath sounds clear bilaterally, no wheezes, rales, or rhonchi. No use of accessory muscles or respiratory distress. Cardiovascular: Regular rate and rhythm, no murmurs, rubs, or gallops. Abdomen: Soft, non-tender, non-distended. Bowel sounds present in all quadrants. No hepatosplenomegaly or masses. Skin: No rash, petechiae, or ecchymosis. Extremities: No edema, cyanosis, or clubbing. No tenderness to palpation, erythema, or swelling in joints. No signs of deep vein thrombosis (DVT). Neurologic: Patient is alert and oriented to person, place, and time. Cranial nerves II-XII intact. Motor strength 5/5 bilaterally in all extremities. laboratory and microbiology Laboratory Tests 03/13/24 05:00 Test 03/13/24 05:00 Range/Units Serum Glucose 146 #H 74-106 mg/dL Assessment/Plan Patient is a 78-year-old male presented to the hospital with: 1. Acute on chronic hypoxic respiratory failure 2. Pneumonia 3. Acute kidney injury with underlying CKD 4. COPD not in exacerbation 5. Recent L1 fracture status post found 6. Chronic AFib 7. Diabetes mellitus 8. Hypertension abdominal 9. bilateral lung transplant? Patient is a poor historian Recommendations: --Ordered sputum culture --MRSA screening: Negative --Reviewed chest x-ray and renal ultrasound. --We will monitor Thank you for consult. MARTA ALBARRAN MD Mar 16, 2024 12:59
== END 2024-03-16 20:00 | DRG 205 ==
LOC: EDBD 02:58 → ER 02:58 → TELE 13:47 → TELE-EAST 18:13 → TELE-WESTW 03-15 17:13
PROVIDERS: ADMIT Internal Medicine; ATTEND Internal Medicine
DX: T86.812 Lung transplant infection (principal); J15.69 Pneumonia due to other Gram-negative bacteria; J96.21 Acute and chronic respiratory failure with hypoxia; N17.0 Acute kidney failure with tubular necrosis; J15.9 Unspecified bacterial pneumonia; I13.0 Hypertensive heart and chronic kidney disease with heart failure and stage 1 through stage 4 chronic kidney disease, or unspecified chronic kidney disease; J44.0 Chronic obstructive pulmonary disease with (acute) lower respiratory infection; Z94.2 Lung transplant status; Z20.822 Contact with and (suspected) exposure to COVID-19; D50.9 Iron deficiency anemia, unspecified; E11.22 Type 2 diabetes mellitus with diabetic chronic kidney disease; E11.65 Type 2 diabetes mellitus with hyperglycemia; E66.9 Obesity, unspecified; I27.20 Pulmonary hypertension, unspecified; N18.32 Chronic kidney disease, stage 3b; E78.5 Hyperlipidemia, unspecified; I50.9 Heart failure, unspecified; I49.1 Atrial premature depolarization; I48.0 Paroxysmal atrial fibrillation; Z79.01 Long term (current) use of anticoagulants; Z87.891 Personal history of nicotine dependence; Z99.81 Dependence on supplemental oxygen; Z82.3 Family history of stroke; Z83.3 Family history of diabetes mellitus; Z68.32 Body mass index [BMI] 32.0-32.9, adult; Z79.899 Other long term (current) drug therapy
CPT/HCPCS: 36415; 71045; 76775; 80048; 80053; 80197; 81001; 82306; 82570; 82728; 82962; 83036; 83540; 83550; 83735; 83880; 84100; 84156; 84300; 84484; 84550; 85025; 87081; 87426; 87804; 93005; 94640; 96361; 96365; 96366; 96367; 96368; 97110; 97116; 97163; 97530; 99291; G0378; J0692; J1815; J7517

== ENCOUNTER 2024-04-11 15:15 | Inpatient (IN) | payer OTHER ==
[~2024-04-11] VITALS: Ht 175.3 cm; Wt 75.0 kg
[~2024-04-11 15:15] MED LIST changes: -ALBUAER3 IN; +AMLO1TAB23 PO; +APIX2.5T PO; +AUG875T PO; +EVER0.5T3 PO; +HYDR12.59 PO; +INSU100I4 SC; +LOSA-534 PO; +MET25T PO; +MYCO250C4 PO; -MYCO500T PO; +NATE120T5 PO; -OXY5T PO; -PRE5T PO; +PRED2.5T4 PO; -TACR1CAP19 PO
[2024-04-11 16:01] LABS: Basophils # (auto) 0.1 10 ^3/uL (0-0.2); Lymphocytes # (auto) 1.3 10 ^3/uL (0.4-5.4); Lymphocytes % (auto) 15.5 % (10.0-50.0); Monocytes # (auto) 0.4 10 ^3/uL (0-1.3); Neutrophils # (auto) 6.4 10 ^3/uL (1.6-8.6); Nucleated Red Blood Cells % 0.1 %; White Blood Cell 8.2 10^3/uL (4.4-10.8)
[2024-04-11 16:03] LABS: Basophils % (auto) 1.5 % (0.0-2.0); Eosinophils # (auto) 0 10 ^3/uL (0-0.8); Eosinophils % (auto) 0.6 % (0.0-7.0); Mean Corpuscular Hemoglobin 19.3 pg (28.0-32.0); Mean Corpuscular Hgb Conc. 31.5 g/dL (32.0-36.0); Mean Corpuscular Volume 61.3 fL (80.0-100.0); Monocytes % (auto) 4.4 % (0.0-12.0); Platelet Count (auto) 191 10^3/uL (140-450); Red Blood Cells 3.43 10^6/uL (4.5-5.90)
[2024-04-11 16:11] LABS: Hemoglobin 6.6 g/dL (13.5-17.5)
[2024-04-11 16:35] LABS: Alanine Aminotransferase 17 U/L (7-40); Albumin 4.2 g/dL (3.2-4.8); Alkaline Phosphatase 100 U/L (46-116); Anion Gap 11 (5-15); Aspartate Aminotransferase 19 U/L (13-40); BUN/Creatinine Ratio 17.1 (10.0-20.0); Bilirubin, Total 0.3 mg/dL (0.2-1.0); Calcium 9.5 mg/dL (8.7-10.4); Carbon Dioxide 24 mmol/L (20-31); Chloride 104 mmol/L (98-107); Lipase 35 U/L (12-53); Potassium 4.3 mmol/L (3.5-5.1); Sodium 139 mmol/L (136-145); Total Protein 6.8 g/dL (5.7-8.2)
[2024-04-11 16:45] VITALS: PULSE 128; RESP 26; O2SAT 100
[2024-04-11 16:53] LABS: Blood Urea Nitrogen 44 mg/dL (9-23)
[2024-04-11 16:55] LABS: Glucose 45 mg/dL (74-106); Lactic Acid w/Reflex 2.7 mmol/L (0.4-2.0)
[2024-04-11] MEDS: DEXTROSE 50% SYRINGE 50 ML IV ONE (16:56)
[2024-04-11] MEDS: SODIUM CHLORIDE 0.9% 1,000 ML IV ONE (17:52)
[2024-04-11] MEDS: SODIUM CHLORIDE 0.9% 500 ML IV ONE (17:55)
[2024-04-11] MEDS: DEXTROSE (50%) 50ML SYRG IV ONE (18:03)
[2024-04-11] MEDS: ALBUMIN 25% 100 ML IV ONE (18:16)
[2024-04-11 20:20] VITALS: BP 115/65; PULSE 112; RESP 20; TEMP 97.9
[2024-04-11 20:40] VITALS: BP 100/58; PULSE 104; RESP 18; TEMP 98.3
[2024-04-11 21:09] LABS: Urine Bacteria FEW /hpf (None Seen); Urine Blood 1+ /uL (Negative); Urine Clarity Turbid (Clear); Urine Color Yellow (Yellow); Urine Protein, UAD 1+ (Negative); Urine Specific Gravity 1.014 (1.001-1.035); Urine Squamous Epithelial Cell FEW /hpf (<5); Urine Urobilinogen Normal (Negative); Urine WBC 439 /hpf (0 - 3); Urine WBC Clumps PRESENT /hpf (None Seen); Urine pH 5.5 (5.0-9.0)
[2024-04-11] MEDS: ONDANSETRON ODT 4 MG TAB PO ONE (21:25)
--- NOTE | 2024-04-11 22:05 | ED.PDOC ---
Altered Mental Status HPI Comments In it is a pleasant 78-year-old male in poor overall health who arrives to the ED today via EMS due to a syncopal event approximately 1/2 hour prior to arrival. Patient has been in [facility] for management and was discharged today. The patient went to the parking lot and had a syncopal event that was witnessed by his daughter. EMS was called and they brought the patient to our facility. At arrival, patient's blood pressure was 80/50 with a heart rate of 128. Could not elicit the reason why the patient was in the [facility] facility, but apparently the patient has not been utilizing his antirejection medications status post left-sided lung transplant some time back. Patient was afebrile at arrival. Chief Complaint: Syncope Time Seen by MD: 15:17 Primary Care Provider: LUIS ANTONIO Reviewed Notes: Nurses Notes, Printing Specialist Notes Allergies: Coded Allergies: No Known Drug Allergy (Verified Allergy, Unknown, 08/25/15) Home Meds Active Scripts Amoxicillin & Pot Clavulanate (AUGMENTIN TABLET) 875 Mg Tb, 875 MG PO BID for 10 Days, #20 TAB Prov:SANDY HEWITT MD 03/14/24 Apixaban Base (ELIQUIS) 2.5 Mg Tab, 2.5 MG PO BID for 30 Days, #60 TAB Prov:SANDY HEWITT MD 03/14/24 Hydrocodone-Acetaminophen (Hydrocodone Bitartrate/AC 5-325 mg) 1 Tab Tab, 1 TAB PO Q8HPRN PRN, #14 TAB Prov:HERRERA ENRIQUEZ MD 03/09/24 Calcium Citrate-Vitamin D (Calcitrate Plus D 315-200 mg-Unit) 1 Tab Tab, 1 TAB PO BID, #90 TAB Prov:HERRERA ENRIQUEZ MD 03/09/24 Cyclobenzaprine Hcl (Cyclobenzaprine Hcl) 5 Mg Tab, 1 TAB PO TID, #30 TAB Prov:HERRERA ENRIQUEZ MD 03/09/24 Reported Medications Hydrochlorothiazide (Hydrochlorothiazide) 12.5 Mg Cap, 12.5 MG PO DAILY, CAP 03/13/24 Losartan Potassium (Losartan Potassium) 50 Mg Tab, 50 MG PO DAILY, MG 03/13/24 Amlodipine Besylate (Amlodipine Besylate) 10 Mg Tab, 10 MG PO DAILY, TAB 03/13/24 Metoprolol Tartrate (Lopressor) 25 Mg Tb, 25 MG PO Q12HR, TAB 03/13/24 Nateglinide (Nateglinide) 120 Mg Tab, 120 MG PO TIDWM, TAB 03/13/24 Insulin Lispro (Humalog Kwikpen) 100 Unit/Ml Inj, 5 UNIT SC AC, INJ 03/13/24 Everolimus (Everolimus) 0.5 Mg Tab, 4 TAB PO BIDAC, TAB 03/13/24 Prednisone (Prednisone) 2.5 Mg Tab, 2.5 MG PO TID, TAB 03/13/24 Mycophenolate Mofetil (Mycophenolate Mofetil) 250 Mg Cap, 500 MG PO BID, CAP 03/13/24 Tamsulosin Hcl (Tamsulosin Hcl) 0.4 Mg Cap, 0.8 MG PO QPM for 30 Days, MG 12/31/16 Pantoprazole Sodium (PANTOPRAZOLE SODIUM) 40 Mg Inj, 40 MG PO DAILY, INJ 12/31/16 Multiple Vitamin (Multivitamins) Cap, 1 CAP PO DAILY, #30 CAP 3 Refills 12/31/16 Insulin Detemir (Levemir Flextouch) 100 Unit/Ml Inj, 20 UNIT SC HS, INJ 12/31/16 Gabapentin (Gabapentin) 100 Mg Cap, 100 MG PO BID 12/31/16 Finasteride (Finasteride) 5 Mg Tab, 5 MG PO HS for 30 Days, MG 12/31/16 Entecavir Monohydrate (Entecavir) 0.5 Mg Tab, 0.5 MG PO Q72HR, TAB 12/31/16 Atorvastatin Calcium (ATORVASTATIN CALCIUM) 20 Mg Tab, 20 MG PO HS, TAB 12/31/16 Information Source: Patient, Emergency Med Personnel Mode of Arrival: EMS Severity: Severe, Unable to Care for Self Timing: Minutes Duration: Since onset Prehospital treatment: 12 Lead EKG Quality: None Recent: Other (Weakness) History of: Diabetes, Other (Status post left lung transplant) Past Medical History PAST MEDICAL HISTORY: AFIB, COPD, DM, High Lipids, HTN, Liver Surgical History (Other): Status post left-sided lung transplant Family History Family History: Family hx of Cancer Social History Smoker: Non-Smoker, Quit Greater Than 1 Year Alcohol: Denies ETOH Use Drugs: Denies Drug Use Lives In: Home Constitutional: reports: fatigue, weakness; denies: chills, diaphoresis, fever, malaise, sweats, others EENTM: denies: blurred vision, double vision, ear bleeding, ear discharge, ear drainage, ear pain, ear ringing, eye pain, eye redness, hearing loss, mouth pain, mouth swelling, nasal discharge, nose bleeding, nose congestion, nose pain, photophobia, tearing, throat pain, throat swelling, voice changes, others Respiratory: denies: cough, hemoptysis, orthopnea, SOB at rest, shortness of breath, SOB with excertion, stridor, wheezing, others Cardiovascular: denies: chest pain, dizzy spells, diaphoresis, Dyspnea on exertion, edema, irregular heart beat, left arm pain, lightheadedness, palpitations, PND, syncope, others Gastrointestinal: denies: abdomen distended, abdominal pain, blood streaked bowels, constipated, diarrhea, dysphagia, difficulty swallowing, hematemesis, melena, nausea, poor appetite, poor fluid intake, rectal bleeding, rectal pain, vomiting, others Genitourinary: denies: burning, dysuria, flank pain, frequency, hematuria, incontinence, penile discharge, penile sore, pain, testicle pain, testicle swelling, urgency, others Neurological: reports: fainting; denies: dizziness, headache, left sided numbness, left sided weakness, numbness, paresthesia, pre-existing deficit, right sided numbness, right sided weakness, seizure, speech problems, tingling, tremors, weakness, others Musculoskeletal: denies: back pain, gout, joint pain, joint swelling, muscle pain, muscle stiffness, neck pain, others Integumetry: denies: bruises, change in color, change in hair/nails, dryness, laceration, lesions, lumps, rash, wounds, others Allergic/Immunocompromised: denies: Difficulty Healing, Frequent Infections, Hives, Itching, others Hematologic/Lymphatic: denies: anemia, blood clots, easy bleeding, easy bruising, swollen glands, others Endocrine: denies: excessive hunger, excessive sweating, excessive thirst, excessive urination, flushing, intolerance to cold, intolerance to heat, une xplained weight gain, unexplained weight loss, others Psychiatric: denies: anxiety, bipolar disorder, depression, hopeless, panic disorder, schizophrenia, sleepless, suicidal, others Physical Exam General Appearance: Moderate Distress (Patient is in moderate distress and appears to be and ill individual.), Normal HEENT: Normal ENT Inspection, Pharynx Normal, TMs Normal Neck: Full Range of Motion, Non-Tender, Normal, Normal Inspection Respiratory: Chest Non-Tender, Lungs Clear, No Accessory Muscle Use, No Respiratory Distress, Other (Tachypneic) Cardiovascular: No Edema, No JVD, No Murmur, No Gallop, Normal Peripheral Pulses, Tachycardia Breast Exam: Deferred Gastrointestinal: No Organomegaly, Non Tender, No Pulsatile Mass, Normal Bowel Sounds, Soft Genitalia: Deferred Pelvic: Deferred Rectal: Deferred Extremities: No calf tenderness, Normal capillary refill, Non-tender, No pedal edema Neurologic: Alert, No Sensory Deficits Cerebellar Function: NOT DONE Reflexes: NOT DONE Skin: Dry, Normal Color, Warm Lymphatic: No Adenopathy Was a procedure done? 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: Attending Physician Indication: Hypotension, Volume resuscitation Room prepared for procedure: Yes Maple Syrup Maker performed hand hygien: Yes Maximal sterile barrier precau: Sterile gown, Sterlie gloves, Large sterlie drape Skin Preparation: Chlorhexidine gluconate Skin preparation completely dr: Yes Insertion site: Right, Femoral Central line catheter type: [id number] dialysis Number of lumens: 3 Central line exchanged over a: Yes Antiseptic ointment applied to: No Post Assessment: Proper placement Informed consent obtained: Yes Risks/benefits/alt described: Yes Differential Diagnosis (ALOC) Differential Diagnosis: Dehydration, Hypoglycemia, DKA, Encephalopathy, Sepsis, CVA, Mass Lesion, SAH, Heart Failure, Renal Failure X-Ray, Labs, Meds, VS Vital Signs Date Time Temp Pulse Resp B/P (MAP) Pulse Ox O2 Delivery O2 Flow Rate FiO2 04/12/24 00:55 174 04/11/24 22:30 98.0 114 15 123/65 98.0 04/11/24 20:40 98.3 104 18 100/58 98.3 04/11/24 20:20 97.9 112 20 115/65 97.9 04/11/24 19:30 Nasal Cannula* 4 36 04/11/24 17:15 73/49 (57) 04/11/24 17:00 70/43 (52) 04/11/24 16:48 129 04/11/24 16:45 128 26 100 Nasal Cannula* 4 36 04/11/24 16:45 98.4 128 26 80/50 (60) 100 98.4 04/11/24 16:29 125 04/11/24 15:20 98.4 134 24 84/55 (65) 98 Lab Test 04/11/24 20:45 04/11/24 17:51 04/11/24 16:50 04/11/24 15:46 Range/Units Urine Color Yellow Yellow Urine Clarity Turbid H Clear Urine pH 5.5 5.0-9.0 Urine Specific [place] 1.014 1.001-1.035 Urine Protein 1+ H Negative Urine Ketones Negative Negative Urine Blood 1+ H Negative /uL Urine Nitrite Negative Negative Urine Bilirubin Negative Negative Urine Urobilinogen Normal Negative mg/dL Urine Leukocyte Esterase 3+ Negative /uL Urine RBC 8 0 - 3 /hpf Urine WBC 439 0 - 3 /hpf Urine WBC Clumps Present None Seen /hpf Urine Squamous Epithelial Cells Few <5 /hpf Urine Bacteria Few H None Seen /hpf Urine Glucose 2+ H Normal mg/dL Lactic Acid Level 1.2 2.7 *H 0.4-2.0 mmol/L Troponin I High Sensitivity 14 16 15 </=54 ng/L White Blood Count 8.2 4.4-10.8 10^3/uL Red Blood Count 3.43 L 4.5-5.90 10^6/uL Hemoglobin 6.6 *L 13.5-17.5 g/dL Hematocrit 21.0 L 41.0-53.0 % Mean Corpuscular Volume 61.3 L 80.0-100.0 fL Mean Corpuscular Hemoglobin 19.3 L 28.0-32.0 pg Mean Corpuscular Hemoglobin Concent 31.5 L 32.0-36.0 g/dL Red Cell Distribution Width 18.0 H 11.8-14.3 % Platelet Count 191 140-450 10^3/uL Mean Platelet Volume 8.2 6.9-10.8 fL Neutrophils (%) (Auto) 78.0 37.0-80.0 % Lymphocytes (%) (Auto) 15.5 10.0-50.0 % Monocytes (%) (Auto) 4.4 0.0-12.0 % Eosinophils (%) (Auto) 0.6 0.0-7.0 % Basophils (%) (Auto) 1.5 0.0-2.0 % Neutrophils # (Auto) 6.4 1.6-8.6 10 ^3/uL Lymphocytes # (Auto) 1.3 0.4-5.4 10 ^3/uL Monocytes # (Auto) 0.4 0-1.3 10 ^3/uL Eosinophils # (Auto) 0 0-0.8 10 ^3/uL Basophils # (Auto) 0.1 0-0.2 10 ^3/uL Nucleated Red Blood Cells 0.1 % Sodium Level 139 136-145 mmol/L Potassium Level 4.3 3.5-5.1 mmol/L Chloride Level 104 98-107 mmol/L Carbon Dioxide Level 24 20-31 mmol/L Anion Gap 11 5-15 Blood Urea Nitrogen 44 H 9-23 mg/dL Creatinine 2.58 H 0.700-1.30 mg/dL Glomerular Filtration Rate Calc 25 >90 mL/min BUN/Creatinine Ratio 17.1 10.0-20.0 Serum Glucose 45 *L 74-106 mg/dL Calcium Level 9.5 8.7-10.4 mg/dL Total Bilirubin 0.3 0.2-1.0 mg/dL Aspartate Amino Transferase (AST) 19 13-40 U/L Alanine Aminotransferase (ALT) 17 7-40 U/L Alkaline Phosphatase 100 46-116 U/L B-Type Natriuretic Peptide 106.31 0-100 pg/mL Total Protein 6.8 5.7-8.2 g/dL Albumin 4.2 3.2-4.8 g/dL Lipase 35 12-53 U/L Current Medications Medications (Trade) Dose Ordered Sig/Anish Route Start Time Stop Time Status Last Admin Sodium Chloride 1,000 ml @ 150 mls/hr Q6H40M ONCE IV 04/11/24 15:30 04/11/24 22:09 DC 04/11/24 17:52 Sodium Chloride 500 ml @ 500 mls/hr Q1H ONCE IV 04/11/24 17:00 04/11/24 17:59 DC 04/11/24 17:55 Albumin Human 100 ml @ 100 mls/hr ONCE ONCE IV 04/11/24 17:00 04/11/24 17:59 DC 04/11/24 18:16 Dextrose 50 ml ONCE ONCE IV 04/11/24 17:00 04/11/24 17:01 DC 04/11/24 18:03 Levofloxacin/ Dextrose 150 ml @ 100 mls/hr ONCE ONCE IV 04/11/24 21:45 04/11/24 23:14 DC 04/11/24 23:47 Amiodarone HCl 100 ml @ 618 mls/hr ONCE ONCE IV 04/12/24 01:30 04/12/24 01:39 DC 04/12/24 01:23 Amiodarone HCl 250 ml @ 33.333 mls/ hr Q7H30M IV 04/12/24 01:30 04/12/24 07:29 04/12/24 01:23 Adenosine (Adenosine) 6 mg ONCE ONCE IV 04/12/24 01:30 04/12/24 01:31 DC 04/12/24 01:23 Adenosine (Adenosine) 12 mg ONCE ONCE IV 04/12/24 01:30 04/12/24 01:31 DC 04/12/24 01:23 Adenosine (Adenosine) 12 mg ONCE ONCE IV 04/12/24 01:30 04/12/24 01:31 DC 04/12/24 01:23 X-Ray, Labs, Meds, VS Comment All studies performed the ED were reviewed by me personally. Head CT was unremarkable for any acute intracranial abnormality. General cerebral volume loss and mild chronic microvascular ischemic changes were noted. 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 Small right and trace left pleural effusions. Persistent slight mass effect upon the right hard by the inflated right lung. Coronary artery calcifications in the left anterior descending artery. Healing moderate to marked compression fracture of L1. Patient's EKG revealed a sinus tachycardia with an irregular rate. Rate was 125. Low voltage and minimal ST elevation on anterior lateral leads noted. IA interval was 50 and QT interval was 327. Laboratories revealed an anemia, hypoglycemia, acute on chronic renal injury, a large urinary tract infection. Patient required fluids and albumin which elevated the patient's blood pressure, but pressure continued to slowly reduce and therefore, central line was placed. Patient will be admitted for multiple comorbidities and will require multiple consultations. While in the ED, patient's heart rate increased to 190 that was displaying signs of SVT. Three rounds of adenosine was utilized at 6 mg, 12 mg and 12 mg. We were unable to achieve conversion. Patient was given 100 mg of ketamine and multiple shock attempts were utilized. For shock was at 150 joules. Second shock was at 200 joules and 3rd shock was at 200 joules. Still unable to convert. Amiodarone was utilized as a push and then a drip was established. Still unable to convert the tachycardic rhythm. Patient's blood pressure remained solid throughout events and therefore, cardiology will evaluate tomorrow for further intervention. Provider Linda Mcclain was contacted and agreed to accept the patient as an admit. Time of 1ST Reevaluation: 22:02 Reevaluation 1ST: Improved Consultation: PCP, Cardiology Patient Education/Counseling: Diagnosis, Treatment Family Education/Counseling: Diagnosis, Treatment Departure 1 Departure Time of Disposition: 22:04 Impression: Primary Impression: Hypotension Additional Impressions: UTI (urinary tract infection) [id number] kidney injury Hypoglycemia Anemia SVT (supraventricular tachycardia) Disposition: ADMITTED INPATIENT Condition: Fair Discharged With: Self Critical Care Note Critical Care Time?: Yes (45 min-critical care time only) Critical care comment: Due to the high probability of a clinically significant and possibly life- threatening deterioration, the patient required my highest level of preparedness to intervene emergently and therefore, I personally provider 45 minutes of critical care time exclusive of time spent on separate billable procedures. This critical care time includes, but is not limited to, obtaining additional history, continued re-examination of the patient, revealed pulse oximetry, ordering and reviewing of additional laboratories studies as well as arranging an urgent treatment with the development of a management plan and evaluation of patient's response to treatment with frequent reassessments and discussions with other providers. Stability Stability form required: No Heart Score Heart Score: Heart Score Response (Comments) Value History Slightly Suspicious 0 EKG Repolarization Disturb 1 Age >65 2 Risk Factors 1 or 2 risk factors 1 Troponin Normal limit 0 Total 4 NORMA PEDROZA PAC Apr 11, 2024 22:05 JAMES BOSCH MD Apr 11, 2024 22:42
[2024-04-11 22:30] VITALS: BP 123/65; PULSE 114; RESP 15; TEMP 98
[2024-04-11] MEDS: levoFLOXacin 750MG 150 ML IV ONE (23:47)
--- NOTE | 2024-04-11 23:47 | DVH ---
CLINICAL HISTORY: Syncopal event TECHNIQUE: Helical imaging carried out from skull base to vertex without intravenous contrast. This e xam was performed according to our departmental dose optimization program. Up-to-date CT equipment an d radiation dose reduction techniques are utilized as appropriate. [[employer] Exposure Report] WID: COMPARISON: None FINDINGS: Generalized cerebral volume loss with concordant prominence of the subarachnoid spaces and ventricles . Mild patchy low attenuation throughout the cerebral white matter consistent with nonspecific white matter disease. Benign prominence of the retro cerebellar CSF space. There is no midline shift or mass effect. The holley white matter interfaces are maintained. The basal cisterns are patent. There is no evidence of acute intracranial hemorrhage or extra-axial fluid alicia ection. The mastoid air cells and visualized paranasal sinuses are well-aerated. Prior ocular lens re placement. IMPRESSION: 1. No acute intracranial abnormality. 2. Generalized cerebral volume loss and mild chronic microvascular ischemic change
[2024-04-12] VITALS (12 sets, daily range): BP systolic 111–134; BP diastolic 63–71; PULSE 103–131; RESP 18–31; TEMP 97.3–98.3; O2SAT 93–100
--- NOTE | 2024-04-12 00:38 | DVH ---
CLINICAL HISTORY: Syncopal event TECHNIQUE: CT of the chest was performed without intravenous contrast. This exam was performed accord ing to our departmental dose optimization program. Up-to-date CT equipment and radiation dose reducti on techniques are utilized as appropriate. COMPARISON: CT CHEST WITHOUT CONTRAST on DOS: 03/05/24 FINDINGS: Lower Neck: Unremarkable Axilla, Mediastinum and Anjana: No axillary or mediastinal lymphadenopathy Heart and Great Vessels: The heart size is normal. Slight compression of the right heart by the infla ratna right lung. Coronary artery calcifications up to moderate in the left anterior descending artery. The thoracic aorta is normal in caliber containing [id number] calcified plaque. The central p ulmonary arteries are normal caliber Airway, Lungs and Pleura: The trachea and central airways are patent. There appears to be congenital lobar overinflation of the right lung there is scarring in both lungs. There is increase in a small r ight pleural effusion and dependent atelectasis in the right lung. Trace left pleural effusion. Upper Abdomen: There is a cyst in segment 4A of the liver although not optimally evaluated without co ntrast. There are calcified periportal lymph nodes. There is no acute abnormality in the upper abdome n. Chest Wall and Osseous Structures: There is bony demineralization. There is moderate chronic compress ion fracture of T7 and healing moderate to marked compression fracture of L1. There is a chronic post erior right 10th rib fracture. IMPRESSION: 1. 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 2. Small right and trace left pleural effusions. 3. Scattered areas of scarring in both lungs. 4. Persistent slight mass effect upon the right heart by the inflated right lung. 5. Coronary artery calcifications up to moderate in the left anterior descending artery. 6. Healing moderate to marked compression fracture of L1. Radiation optimization: All CT scans at this facility use at least one of these dose optimization ayden hniques: automated exposure control mA and/or kV adjustment per patient size (includes targeted exam s where dose is matched to clinical indication) or iterative reconstruction.
[2024-04-12] MEDS: METOPROLOL TARTRATE 1MG/1ML-5ML VIAL IV ONE (00:50)
[2024-04-12] MEDS: AMIODARONE HCL (50 MG/ ML) 3 ML VIAL IV ONE (01:22)
[2024-04-12] MEDS: ADENOSINE 6 MG/2 ML INJ IV ONE ×4 (01:22→01:23)
[2024-04-12] MEDS: AMIODARONE 450mg/250ml AE 250 ML IV ONE (01:22)
[2024-04-12] MEDS: KETAMINE 50mg/ML 10ml Vial (500mg/10ml) IV ONE (01:23)
[2024-04-12] MEDS: AMIODARONE 450mg/250ml AE 250 ML IV SCH ×2 (01:23→07:48)
[2024-04-12] MEDS: AMIODARONE BOLUS KIT 100 ML IV ONE (01:23)
[2024-04-12] MEDS ORDERED: DEXTROSE (50%) 50ML SYRG IV PRN ×2 (01:45→15:45)
--- NOTE | 2024-04-12 02:01 | DVHHP2 ---
Admitting Diagnosis: Syncope, acute anemia, a fib with rvr, yasmine, Hypoglycemia, UTI History of Present Illness History Source: Patient Exam Limitations: No limitations HPI Mr. Jamie Kim is a 78-year-old male with a history of COPD, CKD, DM2, HTN, A Fib, Lung transplant who is in poor overall health, patient presents with a chief complaint of s/p syncopal event approximately 1/2 hour prior to arrival to the hospital. Patient has been in [facility] for management and was discharged today. The patient went to the parking lot and had a syncopal event that was witnessed by his daughter. While in ED patient went into SVT with heart rate of 190's, converted to atrial fibrillation with RVR started on Amiodarone drip per protocol. Patient denies chest pain, headaches, dizziness, nausea, vomiting, palpitations, dysuria, hematuria, abdominal pain, diarrhea, melena , hematochezia. Home Meds Active Scripts Amoxicillin & Pot Clavulanate (AUGMENTIN TABLET) 875 Mg Tb, 875 MG PO BID for 10 Days, #20 TAB Prov:SANDY HEWITT MD 03/14/24 Apixaban Base (ELIQUIS) 2.5 Mg Tab, 2.5 MG PO BID for 30 Days, #60 TAB Prov:SANDY HEWITT MD 03/14/24 Hydrocodone-Acetaminophen (Hydrocodone Bitartrate/AC 5-325 mg) 1 Tab Tab, 1 TAB PO Q8HPRN PRN, #14 TAB Prov:HERRERA ENRIQUEZ MD 03/09/24 Calcium Citrate-Vitamin D (Calcitrate Plus D 315-200 mg-Unit) 1 Tab Tab, 1 TAB PO BID, #90 TAB Prov:HERRERA ENRIQUEZ MD 03/09/24 Cyclobenzaprine Hcl (Cyclobenzaprine Hcl) 5 Mg Tab, 1 TAB PO TID, #30 TAB Prov:HERRERA ENRIQUEZ MD 03/09/24 Reported Medications Hydrochlorothiazide (Hydrochlorothiazide) 12.5 Mg Cap, 12.5 MG PO DAILY, CAP 03/13/24 Losartan Potassium (Losartan Potassium) 50 Mg Tab, 50 MG PO DAILY, MG 03/13/24 Amlodipine Besylate (Amlodipine Besylate) 10 Mg Tab, 10 MG PO DAILY, TAB 03/13/24 Metoprolol Tartrate (Lopressor) 25 Mg Tb, 25 MG PO Q12HR, TAB 03/13/24 Nateglinide (Nateglinide) 120 Mg Tab, 120 MG PO TIDWM, TAB 03/13/24 Insulin Lispro (Humalog Kwikpen) 100 Unit/Ml Inj, 5 UNIT SC AC, INJ 03/13/24 Everolimus (Everolimus) 0.5 Mg Tab, 4 TAB PO BIDAC, TAB 03/13/24 Prednisone (Prednisone) 2.5 Mg Tab, 2.5 MG PO TID, TAB 03/13/24 Mycophenolate Mofetil (Mycophenolate Mofetil) 250 Mg Cap, 500 MG PO BID, CAP 03/13/24 Tamsulosin Hcl (Tamsulosin Hcl) 0.4 Mg Cap, 0.8 MG PO QPM for 30 Days, MG 12/31/16 Pantoprazole Sodium (PANTOPRAZOLE SODIUM) 40 Mg Inj, 40 MG PO DAILY, INJ 12/31/16 Multiple Vitamin (Multivitamins) Cap, 1 CAP PO DAILY, #30 CAP 3 Refills 12/31/16 Insulin Detemir (Levemir Flextouch) 100 Unit/Ml Inj, 20 UNIT SC HS, INJ 12/31/16 Gabapentin (Gabapentin) 100 Mg Cap, 100 MG PO BID 12/31/16 Finasteride (Finasteride) 5 Mg Tab, 5 MG PO HS for 30 Days, MG 12/31/16 Entecavir Monohydrate (Entecavir) 0.5 Mg Tab, 0.5 MG PO Q72HR, TAB 12/31/16 Atorvastatin Calcium (ATORVASTATIN CALCIUM) 20 Mg Tab, 20 MG PO HS, TAB 12/31/16 Past Medical History Cardiac: AFIB, HTN Pulmonary: COPD Central Nervous System: No pertinent Hx GI: No pertinent Hx Hemotology/Oncology: No pertinent Hx Hepatobiliary: No pertinent Hx Psychiatric: No pertinent Hx Musculoskeletal: No pertinent Hx Rheumotologic: No pertinent Hx Infectious Disease: No peritnent Hx ENT: No pertinent Hx Renal/: CKD Endocrine: NIDDM Dermatology: No pertinent Hx Others lung transplant Patient Family History: Cerebrovascular accident (CVA) G8 FATHER Diabetes mellitus G8 MOTHER FHx: cancer G8 MOTHER Smoker: No Hx (Negative) Alocohol: None Lives with: With family Domestic Violence: Neg Review of Systems Constitutional: No symptom reported Ears, Nose, & Throat: No symptom reported Eyes: No symptom reported Pulmonary/Respiratory: No symptom reported Cardiovascular: No symptom reported Gastrointestinal: No symptom reported Genitourinary: No symptom reported Musculoskeletal: No symptom reported Skin: No symptom reported Psychiatric: No symptom reported Endocrine: No symptom reported Hemotologic/Lymphatic: No symptom reported H&P Exam Vital Signs Vital Signs Date Time Temp Pulse Resp B/P (MAP) Pulse Ox O2 Delivery O2 Flow Rate FiO2 04/11/24 22:30 98.0 114 15 123/65 98.0 04/11/24 19:30 Nasal Cannula* 4 36 04/11/24 16:45 100 General Appeara: Well developed, Well nourished, Normal Appearance Head Exam: Normal inspection Neck Exam: Normal inspection, Non-tender, Normal alignment Eye Exam: bilateral eye Normal inspection, bilateral eye PERRL, bilateral eye EOMI Ear Exam: bilateral ear Auricle normal Nasal Exam: Normal inspection Mouth: Normal Inspection Pulmonary/Respiratory: Normal inspection, Normal breath sounds, Chest non- tender, Lungs clear Cardiovascular/Chest: Normal inspection, Tachycardia, Irregularly irregular Peripheral Pulses: 2+ dorsalis pedis (R), 2+ dorsalis pedis (L), 2+ Radial (R), 2+ Radial (L) Abdominal Exam: Normal bowel sounds, Soft, No tenderness Rectal Exam: Deferred Back Exam: Normal inspection Male Genital Exam: Not 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: Normal hearing, Normal speech, PERRL Motor/Sensory: Normal sensory function, Normal motor function Neuro/Mental St: Alert, Oriented Appearance: Appropriate appearance, Appropriate insight Eye contact/ Speech: Cooperative, Good eye contact, Normal speech Thoughts/Psych: Normal thought pattern Coordination/Gait: Normal finger->nose Skin Exam: Normal inspection, Normal color, Warm/dry Labs/Xrays Labs Test 04/11/24 20:45 04/11/24 17:51 04/11/24 15:46 Range/Units Urine Color Yellow Yellow Urine Clarity Turbid H Clear Urine pH 5.5 5.0-9.0 Urine Specific [place] 1.014 1.001-1.035 Urine Protein 1+ H Negative Urine Ketones Negative Negative Urine Blood 1+ H Negative /uL Urine Nitrite Negative Negative Urine Bilirubin Negative Negative Urine Urobilinogen Normal Negative mg/dL Urine Leukocyte Esterase 3+ Negative /uL Urine RBC 8 0 - 3 /hpf Urine WBC 439 0 - 3 /hpf Urine WBC Clumps Present None Seen /hpf Urine Squamous Epithelial Cells Few <5 /hpf Urine Bacteria Few H None Seen /hpf Urine Glucose 2+ H Normal mg/dL Lactic Acid Level 1.2 0.4-2.0 mmol/L Troponin I High Sensitivity 14 </=54 ng/L White Blood Count 8.2 4.4-10.8 10^3/uL Red Blood Count 3.43 L 4.5-5.90 10^6/uL Hemoglobin 6.6 *L 13.5-17.5 g/dL Hematocrit 21.0 L 41.0-53.0 % Mean Corpuscular Volume 61.3 L 80.0-100.0 fL Mean Corpuscular Hemoglobin 19.3 L 28.0-32.0 pg Mean Corpuscular Hemoglobin Concent 31.5 L 32.0-36.0 g/dL Red Cell Distribution Width 18.0 H 11.8-14.3 % Platelet Count 191 140-450 10^3/uL Mean Platelet Volume 8.2 6.9-10.8 fL Neutrophils (%) (Auto) 78.0 37.0-80.0 % Lymphocytes (%) (Auto) 15.5 10.0-50.0 % Monocytes (%) (Auto) 4.4 0.0-12.0 % Eosinophils (%) (Auto) 0.6 0.0-7.0 % Basophils (%) (Auto) 1.5 0.0-2.0 % Neutrophils # (Auto) 6.4 1.6-8.6 10 ^3/uL Lymphocytes # (Auto) 1.3 0.4-5.4 10 ^3/uL Monocytes # (Auto) 0.4 0-1.3 10 ^3/uL Eosinophils # (Auto) 0 0-0.8 10 ^3/uL Basophils # (Auto) 0.1 0-0.2 10 ^3/uL Nucleated Red Blood Cells 0.1 % Sodium Level 139 136-145 mmol/L Potassium Level 4.3 3.5-5.1 mmol/L Chloride Level 104 98-107 mmol/L Carbon Dioxide Level 24 20-31 mmol/L Anion Gap 11 5-15 Blood Urea Nitrogen 44 H 9-23 mg/dL Creatinine 2.58 H 0.700-1.30 mg/dL Glomerular Filtration Rate Calc 25 >90 mL/min BUN/Creatinine Ratio 17.1 10.0-20.0 Serum Glucose 45 *L 74-106 mg/dL Calcium Level 9.5 8.7-10.4 mg/dL Total Bilirubin 0.3 0.2-1.0 mg/dL Aspartate Amino Transferase (AST) 19 13-40 U/L Alanine Aminotransferase (ALT) 17 7-40 U/L Alkaline Phosphatase 100 46-116 U/L B-Type Natriuretic Peptide 106.31 0-100 pg/mL Total Protein 6.8 5.7-8.2 g/dL Albumin 4.2 3.2-4.8 g/dL Lipase 35 12-53 U/L Assessment/Plan Problem List: (1) Syncope (2) Atrial fibrillation with RVR (3) Hypotension (4) Anemia (5) Hvtwh-la-jjwirsr kidney injury (6) UTI (urinary tract infection) (7) Hypoglycemia Plan 78 yo male with known history of COPD, CKD, hypertension, DM2 , Atrial fibrillation, Lung transplant, hypertension presents with syncopal episode. Patient found to have 1. Atrial fibrillation with RVR 2. Acute anemia 3. Acute on chronic kidney injury 4. Hypoglycemia 5. UTI 6. Hypotension 7. Syncope Admit BARBI Cardiology consultation , 2D echocardiogram, hold anticoagulation d/t anemia serial H&H every 6 hours transfuse PRBC's IV antibiotic Ceftriaxone Continue Amiodarone drip per protocol Glucose monitoring AC & HS Monitor BMP Iron panel, Ferritin level IV fluids NS GI ppx Protonix Fall Precautions Discussed all above with patient who verbalizes agreement and understanding of care plan. All questions were answered. Discussed assessment and care plan with supervising MD . Plan discussed with: Patient, Other Code Visit Code Visit Total Time (mins): 45 Additional Comments Additional Comments Additional Comments 78 yo male with known history of COPD, CKD, hypertension, DM2 , Atrial fibrillation, Lung transplant, hypertension presents with syncopal episode. Patient found to have 1. AFib with RVR currently on amiodarone drip 2. Acute kidney injury suspected secondary to vasomotor nephropathy with the underlying CKD 3. UTI 4. Syncope 5. Anemia 6. COPD 7. Status post lung transplant -resume amiodarone motor later continue amiodarone follow up Cardiology recommendations NATALEE MYLES Apr 12, 2024 02:01 SANDY HEWITT MD Apr 12, 2024 17:31
[2024-04-12 02:26] LABS: % Iron Saturation 19.8 % (20-55)
[2024-04-12] MEDS: SODIUM CHLORIDE 0.9% 1,000 ML IV ONE (03:03)
[2024-04-12] MEDS: cefTRIAXone 1GM/50ML D5W 50 ML IV SCH (03:03)
[2024-04-12 03:19] LABS: Ferritin 646.4 ng/mL (22-322)
[2024-04-12] MEDS: ACCU-CHEK COMFORT CURVE STRIP VI SCH (05:30)
[2024-04-12] MEDS: InsuLIN REG 1unit/0.01ml Soln (100units/ml) SC SCH ×2 (05:30→21:51)
[2024-04-12] MEDS: LEVALBUTEROL HCL 1.25 MG/3 ML NEB NEB SCH (06:36)
[2024-04-12] MEDS: PANTOPRAZOLE 40 MG/10 ML VIAL INJ IV SCH (10:45)
[2024-04-12] MEDS: HYDROcodone-ACET 5/325MG TAB PO PRN (10:47)
[2024-04-12 10:58] LABS: Anion Gap 12 (5-15); Chloride 106 mmol/L (98-107); Sodium 137 mmol/L (136-145)
[2024-04-12 11:01] LABS: Basophils # (auto) 0.1 10 ^3/uL (0-0.2); Basophils % (auto) 0.6 % (0.0-2.0); Eosinophils # (auto) 0 10 ^3/uL (0-0.8); Eosinophils % (auto) 0.1 % (0.0-7.0); Hematocrit 27.3 % (41.0-53.0); Hemoglobin 8.6 g/dL (13.5-17.5); Lymphocytes # (auto) 0.6 10 ^3/uL (0.4-5.4); Lymphocytes % (auto) 6.7 % (10.0-50.0); Mean Corpuscular Hemoglobin 22.1 pg (28.0-32.0); Mean Corpuscular Hgb Conc. 31.7 g/dL (32.0-36.0); Mean Corpuscular Volume 69.8 fL (80.0-100.0); Monocytes # (auto) 0.6 10 ^3/uL (0-1.3); Monocytes % (auto) 6.6 % (0.0-12.0); Neutrophils # (auto) 8.1 10 ^3/uL (1.6-8.6); Nucleated Red Blood Cells % 0.3 %; Platelet Count (auto) 141 10^3/uL (140-450); Red Blood Cells 3.91 10^6/uL (4.5-5.90); White Blood Cell 9.4 10^3/uL (4.4-10.8)
[2024-04-12 11:03] LABS: Red Cell Distribution Width 27.9 % (11.8-14.3)
[2024-04-12 11:04] LABS: BUN/Creatinine Ratio 15.4 (10.0-20.0)
[2024-04-12 11:09] LABS: Blood Urea Nitrogen 37 mg/dL (9-23); Calcium 8.6 mg/dL (8.7-10.4); Carbon Dioxide 19 mmol/L (20-31); Glucose 288 mg/dL (74-106)
[2024-04-12 11:16] LABS: Anisocytosis Slight; Hypochromia Slight
[2024-04-12 11:17] LABS: Platelet Estimate Decreased
--- NOTE | 2024-04-12 13:40 | DVHSR ---
APPROVED REPORT EXAM: Two-dimensional and M-mode echocardiogram with Doppler and color Doppler. Blood Pressure: 121/62 mmHg INDICATION Atrial Fibrillation Syncope w/ RVR RISK FACTORS Height: 5' 9", Weight: 149 DIMENSIONS LVDd4.0 (3.8-5.7cm)LA (2D)4.2 (1.9-4.0cm)Aortic Root3.6 (2.0-3.7cm) LVDs2.7 (2.5-4.0cm)LA (MM) (1.9-4.0cm)Aortic Cusp Exc1.5 (1.5-2.0cm) EF (%) 62.0 (55-70%)Rt. Atrium4.8 (1.9-4.0cm)Asc. Aorta cm IVSd1.1 (0.7-1.1cm)RV (D) (1.8-2.4cm) PWd1.1 (0.7-1.1cm) Mitral Valve MitralMitral Stenosis E wave1.00m/sMV Mean GR.mmHg A wave0.90m/sMV Peak GR.mmHg E/A ratio1.12D MVAcm2 Aortic Valve Aortic ValveAortic Stenosis V11.10m/Mckayla Mean GR.3mmHg V21.20m/Mckayla Peak GR.6mmHg LVOT Diameter2.3 (1.8-2.4cm)Doppler AVA3.81cm2 AI P 1/2 Tzgf842.80ms Pulmonic Valve V20.80m/s Tricuspid Valve TR Velocity3.10m/s [id number] Conclusion Normal left ventricular size and dimension. Normal left ventricular systolic function estimated ejec tion fraction of 60%. There is a grade diastolic dysfunction. Normal right ventricular size and dimension. Normal right ventricular systolic function. Mild-to-mo derately increased right ventricular systolic pressure at 44 mm of mercury. Normal biatrial size and dimension. The aortic valve is mildly thickened and sclerotic there is mild aortic valve regurgitation. The mitral valve appears normal structure and function. Normal tricuspid valve structure and function. The pulmonary valve is grossly normal. No pericardial effusion.
[2024-04-12 15:02] LABS: Hematocrit 27.4 % (41.0-53.0); Hemoglobin 8.8 g/dL (13.5-17.5)
[2024-04-12] MEDS: ONDANSETRON HCL 4 MG/2 ML VIAL IV PRN (18:21)
[2024-04-12] MEDS: TAMSULOSIN HYDROCHLORIDE 0.4 MG CAP PO SCH (18:21)
[2024-04-12] MEDS: MORPHINE SULFATE INJ 2 MG/ml SYRG IV PRN (18:22)
[2024-04-12 18:37] LABS: Hematocrit 32.6 % (41.0-53.0); Hemoglobin 10.3 g/dL (13.5-17.5)
[2024-04-12] MEDS: ACETAMINOPHEN 325 MG TAB PO PRN (18:46)
--- NOTE | 2024-04-12 23:09 | DVHINCON2 ---
DATE OF CONSULTATION: 04/12/2024 CARDIOLOGY CONSULTATION REFERRING PHYSICIAN: Dr. Fitzgerald. CONSULTING PHYSICIAN: Dr. Saeed. INDICATION: AFib. HISTORY OF PRESENT ILLNESS: The patient is a 78-year-old male with history of diabetes, hypertension, AFib, COPD, history of lung transplant, who was transferred from a rehab facility after the patient had an episode of brief loss of consciousness. When brought to the hospital, the patient's blood pressure was reported to be in the 60s systolic. He was also tachycardic, heart rates in the 170s. EKG showed AFib, subsequently started on amiodarone drip. Currently, patient is in sinus tachycardia, heart rate in the low 100s. Denying any chest pain. Does give history of shortness of breath. The patient also noted to be severely anemic. PAST MEDICAL HISTORY: * Diabetes. * Hypertension. * Atrial fibrillation. * COPD. * CKD. MEDICATIONS: Per med rec. ALLERGIES: No known drug allergies. PHYSICAL EXAMINATION: GENERAL: Alert and awake, in no form of cardiopulmonary distress. VITAL SIGNS: Blood pressure 122/54, pulse 112 per minute, saturation 96%. HEENT: No carotid bruits. No jugular venous distention. CHEST: Bilateral air entry. Few rhonchi. CARDIOVASCULAR: Submucosal and palpable. Normal S1, S2. Tachycardic. EXTREMITIES: No peripheral edema. DIAGNOSTIC DATA: White count 9, hemoglobin 6, platelets 191. Sodium 137, potassium 5.0, creatinine is 2.4. BNP is 106. ASSESSMENT: * Syncope, likely secondary to hypotension. * Hypertension, resolved. * Atrial fibrillation with rapid ventricular response. * History of diabetes. * History of hypertension. * Chronic kidney disease. * Chronic obstructive pulmonary disease. * Severe anemia. RECOMMENDATIONS: * Continue amiodarone drip. * We will monitor H and H closely. * Monitor electrolytes and renal function closely. * Hold anticoagulation for now given severe anemia. * Workup in progress. * Obtain echo. * Continue telemetry monitoring. Thank you for allowing me to participate in the care of this patient. MD TODD Fritz/DAVID/MIGUELINA TID: [id number] RECEIPT: [id number]
[2024-04-13] VITALS (12 sets, daily range): BP systolic 123–139; BP diastolic 67–78; PULSE 99–135; RESP 12–22; TEMP 99.5–99.6; O2SAT 93–100
[2024-04-13 01:17] LABS: Hematocrit 30.3 % (41.0-53.0); Hemoglobin 9.1 g/dL (13.5-17.5)
[2024-04-13 05:57] LABS: Eosinophils # (auto) 0 10 ^3/uL (0-0.8); Eosinophils % (auto) 0.3 % (0.0-7.0); Mean Corpuscular Hemoglobin 22.2 pg (28.0-32.0); Mean Corpuscular Hgb Conc. 31.7 g/dL (32.0-36.0); Monocytes # (auto) 0.8 10 ^3/uL (0-1.3)
[2024-04-13 06:00] LABS: Basophils # (auto) 0.2 10 ^3/uL (0-0.2); Basophils % (auto) 1.5 % (0.0-2.0); Calcium 8.9 mg/dL (8.7-10.4); Chloride 105 mmol/L (98-107); Hematocrit 28.1 % (41.0-53.0); Hemoglobin 8.9 g/dL (13.5-17.5); Lymphocytes # (auto) 1.1 10 ^3/uL (0.4-5.4); Lymphocytes % (auto) 10.4 % (10.0-50.0); Mean Corpuscular Volume 70.1 fL (80.0-100.0); Monocytes % (auto) 7.5 % (0.0-12.0); Neutrophils # (auto) 8.4 10 ^3/uL (1.6-8.6); Neutrophils % (auto) 80.3 % (37.0-80.0); Nucleated Red Blood Cells % 0.4 %; Platelet Count (auto) 153 10^3/uL (140-450); Potassium 5.1 mmol/L (3.5-5.1); Red Blood Cells 4.01 10^6/uL (4.5-5.90); Sodium 136 mmol/L (136-145); White Blood Cell 10.4 10^3/uL (4.4-10.8)
[2024-04-13 06:01] LABS: Anion Gap 11 (5-15); Carbon Dioxide 20 mmol/L (20-31)
[2024-04-13 06:06] LABS: BUN/Creatinine Ratio 13.2 (10.0-20.0)
[2024-04-13 06:22] LABS: Red Cell Distribution Width 29.4 % (11.8-14.3)
[2024-04-13 06:24] LABS: Blood Urea Nitrogen 34 mg/dL (9-23); Glucose 260 mg/dL (74-106)
[2024-04-13 06:58] LABS: Anisocytosis Moderate; Hypochromia Moderate; Large Platelets FEW; Ovalocytes FEW; Platelet Estimate Adequate
--- NOTE | 2024-04-13 14:47 | ECG ---
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
[2024-04-13] MEDS: METOPROLOL SUCCINATE XL 50 MG TAB PO SCH (15:56)
--- NOTE | 2024-04-13 16:20 | DVHPN2 ---
Subjective OVERNIGHT EVENTS NOTED PATIENT IS STILL ON AMIODARONE DRIP, METOPROLOL HAS BEEN ADDED. Reviewed: Care Plan Changes from previous H/P or p: No Changes Objective Vitals Vital Signs Date Time Temp Pulse Resp B/P (MAP) Pulse Ox O2 Delivery O2 Flow Rate FiO2 04/13/24 16:00 142 23 138/74 (95) 96 04/13/24 13:50 Nasal Cannula 2.0 04/13/24 13:50 28 04/12/24 20:00 97.8 97.8 Intake/Output Intake and Output 04/13/24 07:00 Intake Total 1616.674 ml Output Total 800 ml Balance 816.674 ml Intake Oral 0 ml IV Total 1016.674 ml Blood Product 600 ml Output Urine Total 800 ml Exam HEENT PUPILS REACTIVE NECK IS SUPPLE CVS S1-S2 IRREGULAR IRREGULAR RATE AND RHYTHM RESPIRATORY BY THE DEGREE OF GI POSITIVE BOWEL SOUNDS EXTREMITY NO PEDAL EDEMA INTERVENTIONAL PHYSIATRIST NO MOTOR DEFICIT Medications Current Medications Medications Dose Ordered Sig/Anish Route Start Time Stop Time Status Last Admin Dose Admin Metoprolol Tartrate 2.5 mg Q6HPRN PRN IV 04/12/24 00:45 Amiodarone HCl 250 ml @ 16.667 mls/ hr Q15H IV 04/12/24 07:30 04/13/24 08:31 16.667 MLS/HR Ondansetron HCl 4 mg Q6HPRN PRN IV 04/12/24 01:45 04/12/24 18:21 4 MG Morphine Sulfate 2 mg Q6HPRN PRN IV 04/12/24 01:45 04/12/24 18:22 2 MG Ceftriaxone Sodium 50 ml @ 100 mls/hr DAILY@2200 IV 04/12/24 02:00 04/12/24 21:58 100 MLS/HR Pantoprazole Sodium 40 mg DAILY IV 04/12/24 10:00 04/13/24 11:06 40 MG Acetaminophen 650 mg Q6HPRN PRN PO 04/12/24 01:45 04/12/24 18:46 650 MG Acetaminophen/ Hydrocodone Bitart 1 tab Q6HPRN PRN PO 04/12/24 01:45 04/12/24 10:47 1 TAB Diagnostic Test (Pha) 1 strip ACHS 04/12/24 07:00 04/13/24 11:30 1 STRIP Levalbuterol HCl 0.625 mg Q6HR NEB 04/12/24 06:00 04/13/24 13:50 0.625 MG Insulin Human Regular HS SC 04/12/24 22:00 Insulin Human Regular AC SC 04/12/24 17:00 04/13/24 12:26 2 UNITS Dextrose 50 ml UD PRN IV 04/12/24 15:45 Tamsulosin HCl 0.4 mg QPM PO 04/12/24 18:00 04/12/24 18:21 0.4 MG Metoprolol Succinate 25 mg BID PO 04/13/24 15:30 04/13/24 15:56 25 MG Laboratory Results Laboratory Tests 04/13/24 05:03 Chemistry Test 04/13/24 05:03 Calcium Level 8.9 mg/dL (8.7-10.4) Urinalysis Test 04/11/24 20:45 Urine Color Yellow (Yellow) Urine Clarity Turbid (Clear) H Urine pH 5.5 (5.0-9.0) Urine Specific [place] 1.014 (1.001-1.035) Urine Protein 1+ (Negative) H Urine Ketones Negative (Negative) Urine Blood 1+ /uL (Negative) H Urine Nitrite Negative (Negative) Urine Bilirubin Negative (Negative) Urine Urobilinogen Normal mg/dL (Negative) Urine Leukocyte Esterase 3+ /uL (Negative) Urine RBC 8 /hpf (0 - 3) Urine WBC 439 /hpf (0 - 3) Urine WBC Clumps Present /hpf (None Seen) Urine Squamous Epithelial Cells Few /hpf (<5) Urine Bacteria Few /hpf (None Seen) H Urine Glucose 2+ mg/dL (Normal) H Microbiology Microbiology Date/Time Source Procedure Growth Status 04/11/24 20:45 Voided Urine Urine Culture - Preliminary Resulted Assessment/Plan Assessment/Plan 78 yo male with known history of COPD, CKD, hypertension, DM2 , Atrial fibrillation, Lung transplant, hypertension presents with syncopal episode. Patient found to have 1. AFib with RVR currently on amiodarone drip 2. Acute kidney injury suspected secondary to vasomotor nephropathy with the underlying CKD 3. GRAM-NEGATIVE UTI 4. Syncope 5. Anemia 6. COPD 7. Status post lung transplant -ADD METOPROLOL, FOLLOW-UP 2D ECHO CARDIOLOGY CONSULTATION CONTINUE ANTIBIOTICS: OF URINE CULTURE Plan discussed with: Patient My Orders Orders - SANDY HEWITT MD Procedure Category Date Status Time Tamsulosin PHA 04/12/24 In Process Hydrochloride (Flomax) 18:00 Metoprolol Xl PHA 04/13/24 In Process Succinate (Toprol Xl) 15:30 Cleanse Wound With CHARBEL 04/13/24 In Process Mild Soap A 10:20 Cleanse Wound With CHARBEL 04/13/24 In Process Wound Clean 10:20 * Dietary Consult CONS 04/13/24 Transmitted 15:54 Date of Service: Apr 13, 2024 Billing Provider: SANDY HEWITT MD Common Visit Codes: NOT BILLABLE SANDY HEWITT MD Apr 13, 2024 16:20
[2024-04-14] VITALS (19 sets, daily range): BP systolic 103–162; BP diastolic 61–85; PULSE 94–125; RESP 14–22; TEMP 97.8–102.5; O2SAT 96–100
[2024-04-14 07:35] LABS: Eosinophils # (auto) 0.1 10 ^3/uL (0-0.8); Hemoglobin 8.9 g/dL (13.5-17.5); Mean Corpuscular Volume 68.4 fL (80.0-100.0); Monocytes # (auto) 0.6 10 ^3/uL (0-1.3); Neutrophils # (auto) 6.1 10 ^3/uL (1.6-8.6); Nucleated Red Blood Cells % 0.1 %; White Blood Cell 7.6 10^3/uL (4.4-10.8)
[2024-04-14 07:39] LABS: Basophils # (auto) 0.1 10 ^3/uL (0-0.2); Basophils % (auto) 0.7 % (0.0-2.0); Eosinophils % (auto) 0.7 % (0.0-7.0); Hematocrit 27.6 % (41.0-53.0); Lymphocytes # (auto) 0.9 10 ^3/uL (0.4-5.4); Lymphocytes % (auto) 11.2 % (10.0-50.0); Mean Corpuscular Hgb Conc. 32.1 g/dL (32.0-36.0); Monocytes % (auto) 7.8 % (0.0-12.0); Neutrophils % (auto) 79.6 % (37.0-80.0); Platelet Count (auto) 148 10^3/uL (140-450); Red Blood Cells 4.04 10^6/uL (4.5-5.90); Red Cell Distribution Width 29.6 % (11.8-14.3)
[2024-04-14 07:47] LABS: Chloride 106 mmol/L (98-107); Sodium 140 mmol/L (136-145)
[2024-04-14 07:48] LABS: Anion Gap 9 (5-15); Calcium 8.9 mg/dL (8.7-10.4); Carbon Dioxide 25 mmol/L (20-31)
[2024-04-14 07:53] LABS: BUN/Creatinine Ratio 12.6 (10.0-20.0)
[2024-04-14 07:58] LABS: Blood Urea Nitrogen 38 mg/dL (9-23); Glucose 117 mg/dL (74-106); Potassium 5.3 mmol/L (3.5-5.1)
--- NOTE | 2024-04-14 13:34 | ECG ---
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
--- NOTE | 2024-04-14 17:26 | DVHPN2 ---
Subjective OVERNIGHT EVENTS NOTED PATIENT IS STILL ON AMIODARONE DRIP, patient is complaining of fever and rigors temperature was 100.4. Patient's urine culture came back ESBL positive. Infectious Disease will be consulted and antibiotics will be changed. Reviewed: Care Plan Changes from previous H/P or p: No Changes Objective Vitals Vital Signs Date Time Temp Pulse Resp B/P (MAP) Pulse Ox O2 Delivery O2 Flow Rate FiO2 04/14/24 13:00 99.1 111 21 155/79 (104) 100 99.1 04/14/24 11:11 Nasal Cannula* 2 28 Intake/Output Intake and Output 04/14/24 07:00 Intake Total 200.003 ml Output Total 450 ml Balance -249.997 ml Intake Oral 0 ml IV Total 200.003 ml Output Urine Total 450 ml # Voids 1 Exam HEENT PUPILS REACTIVE NECK IS SUPPLE CVS S1-S2 IRREGULAR IRREGULAR RATE AND RHYTHM RESPIRATORY BY THE DEGREE OF GI POSITIVE BOWEL SOUNDS EXTREMITY NO PEDAL EDEMA 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 Medications Current Medications Medications Dose Ordered Sig/Anish Route Start Time Stop Time Status Last Admin Dose Admin Metoprolol Tartrate 2.5 mg Q6HPRN PRN IV 04/12/24 00:45 Amiodarone HCl 250 ml @ 16.667 mls/ hr Q15H IV 04/12/24 07:30 04/14/24 05:31 16.667 MLS/HR Ondansetron HCl 4 mg Q6HPRN PRN IV 04/12/24 01:45 04/12/24 18:21 4 MG Morphine Sulfate 2 mg Q6HPRN PRN IV 04/12/24 01:45 04/12/24 18:22 2 MG Pantoprazole Sodium 40 mg DAILY IV 04/12/24 10:00 04/14/24 10:37 40 MG Acetaminophen 650 mg Q6HPRN PRN PO 04/12/24 01:45 04/14/24 05:40 650 MG Acetaminophen/ Hydrocodone Bitart 1 tab Q6HPRN PRN PO 04/12/24 01:45 04/12/24 10:47 1 TAB Diagnostic Test (Pha) 1 strip ACHS 04/12/24 07:00 04/14/24 11:28 1 STRIP Levalbuterol HCl 0.625 mg Q6HR NEB 04/12/24 06:00 04/14/24 11:11 0.625 MG Insulin Human Regular HS SC 04/12/24 22:00 04/13/24 21:46 4 UNITS Insulin Human Regular AC SC 04/12/24 17:00 04/14/24 11:44 3 UNITS Dextrose 50 ml UD PRN IV 04/12/24 15:45 Tamsulosin HCl 0.4 mg QPM PO 04/12/24 18:00 04/13/24 18:17 0.4 MG Metoprolol Succinate 25 mg BID PO 04/13/24 15:30 04/14/24 10:36 25 MG Patient Own Medication 1 gm Q8HR IV 04/14/24 17:30 UNV Laboratory Results Laboratory Tests 04/14/24 06:14 Chemistry Test 04/14/24 06:14 Calcium Level 8.9 mg/dL (8.7-10.4) Urinalysis Test 04/11/24 20:45 Urine Color Yellow (Yellow) Urine Clarity Turbid (Clear) H Urine pH 5.5 (5.0-9.0) Urine Specific [place] 1.014 (1.001-1.035) Urine Protein 1+ (Negative) H Urine Ketones Negative (Negative) Urine Blood 1+ /uL (Negative) H Urine Nitrite Negative (Negative) Urine Bilirubin Negative (Negative) Urine Urobilinogen Normal mg/dL (Negative) Urine Leukocyte Esterase 3+ /uL (Negative) Urine RBC 8 /hpf (0 - 3) Urine WBC 439 /hpf (0 - 3) Urine WBC Clumps Present /hpf (None Seen) Urine Squamous Epithelial Cells Few /hpf (<5) Urine Bacteria Few /hpf (None Seen) H Urine Glucose 2+ mg/dL (Normal) H Microbiology Microbiology Date/Time Source Procedure Growth Status 04/11/24 20:45 Voided Urine Urine Culture - Preliminary Escherichia coli - ESBL Resulted Assessment/Plan Assessment/Plan 78 yo male with known history of COPD, CKD, hypertension, DM2 , Atrial fibrillation, Lung transplant, hypertension presents with syncopal episode. Patient found to have 1. AFib with RVR currently on amiodarone drip 2. Acute kidney injury suspected secondary to vasomotor nephropathy with the underlying CKD 3. GRAM-NEGATIVE UTI with a ESBL 4. Syncope 5. Anemia 6. COPD 7. Status post lung transplant 8. Febrile episode rule out bacteremia -blood cultures x2 -discontinue Rocephin, start meropenem, Infectious Disease consultation -continue METOPROLOL, continue amiodarone drip, follow up Cardiology recommendations. Plan discussed with: Patient My Orders Orders - SANDY HEWITT MD Procedure Category Date Status Time Blood Culture JAC 04/14/24 In Process 14:28 (Nf) Meropenam PHA 04/14/24 Logged 17:30 * Infectious Rula- CONS 04/14/24 Transmitted Mallad 17:22 Date of Service: Apr 14, 2024 Billing Provider: SANDY HEWITT MD Common Visit Codes: NOT BILLABLE SANDY HEWITT MD Apr 14, 2024 17:26
[2024-04-14] MEDS: hydrALAZINE HCL 20 MG/ML VL IV PRN (17:54)
[2024-04-14] MEDS: NS IV SCH (20:06)
[2024-04-14] MEDS: MEROPENEM IV SCH (20:06)
--- NOTE | 2024-04-14 22:36 | DVHINCON2 ---
Date of service: Apr 14, [address] Hewitt Reason for Consultation UTI History of Present Illness This is a 78-year-old male who patient presents with a chief complaint of s/p syncopal event approximately 1/2 hour prior to arrival to the hospital. Patient has been in [facility] [place] for management and was discharged. The patient went to the parking lot and had a syncopal event that was witnessed by his daughter. While in ED patient went into SVT with heart rate of 190's, converted to atrial fibrillation with RVR started on Amiodarone drip per protocol. Past medical history : COPD, CKD, DM2, HTN, A Fib, Lung transplant who is in poor overall health, Past Medical History Cardiac: AFIB, HTN Pulmonary: COPD Central Nervous System: No pertinent Hx GI: No pertinent Hx Hemotology/Oncology: No pertinent Hx Hepatobiliary: No pertinent Hx Psychiatric: No pertinent Hx Musculoskeletal: No pertinent Hx Rheumotologic: No pertinent Hx Infectious Disease: No peritnent Hx ENT: No pertinent Hx Renal/: CKD Endocrine: NIDDM Dermatology: No pertinent Hx Others lung transplant Family History: Cerebrovascular accident (CVA) G8 FATHER Diabetes mellitus G8 MOTHER FHx: cancer G8 MOTHER Family History Patient Family History: Cerebrovascular accident (CVA) G8 FATHER Diabetes mellitus G8 MOTHER FHx: cancer G8 MOTHER Social History Smoker: No Hx (Negative) Alocohol: None Lives with: With family Domestic Violence: Neg Allergies: Coded Allergies: No Known Drug Allergy (Verified Allergy, Unknown, 08/25/15) Home Meds Active Scripts Amoxicillin & Pot Clavulanate (AUGMENTIN TABLET) 875 Mg Tb, 875 MG PO BID for 10 Days, #20 TAB Prov:SANDY HEWITT MD 03/14/24 Apixaban Base (ELIQUIS) 2.5 Mg Tab, 2.5 MG PO BID for 30 Days, #60 TAB Prov:SANDY HEWITT MD 03/14/24 Hydrocodone-Acetaminophen (Hydrocodone Bitartrate/AC 5-325 mg) 1 Tab Tab, 1 TAB PO Q8HPRN PRN, #14 TAB Prov:HERRERA ENRIQUEZ MD 03/09/24 Calcium Citrate-Vitamin D (Calcitrate Plus D 315-200 mg-Unit) 1 Tab Tab, 1 TAB PO BID, #90 TAB Prov:HERRERA ENRIQUEZ MD 03/09/24 Cyclobenzaprine Hcl (Cyclobenzaprine Hcl) 5 Mg Tab, 1 TAB PO TID, #30 TAB Prov:HERRERA ENRIQUEZ MD 03/09/24 Reported Medications Hydrochlorothiazide (Hydrochlorothiazide) 12.5 Mg Cap, 12.5 MG PO DAILY, CAP 03/13/24 Losartan Potassium (Losartan Potassium) 50 Mg Tab, 50 MG PO DAILY, MG 03/13/24 Amlodipine Besylate (Amlodipine Besylate) 10 Mg Tab, 10 MG PO DAILY, TAB 03/13/24 Metoprolol Tartrate (Lopressor) 25 Mg Tb, 25 MG PO Q12HR, TAB 03/13/24 Nateglinide (Nateglinide) 120 Mg Tab, 120 MG PO TIDWM, TAB 03/13/24 Insulin Lispro (Humalog Kwikpen) 100 Unit/Ml Inj, 5 UNIT SC AC, INJ 03/13/24 Everolimus (Everolimus) 0.5 Mg Tab, 4 TAB PO BIDAC, TAB 03/13/24 Prednisone (Prednisone) 2.5 Mg Tab, 2.5 MG PO TID, TAB 03/13/24 Mycophenolate Mofetil (Mycophenolate Mofetil) 250 Mg Cap, 500 MG PO BID, CAP 03/13/24 Tamsulosin Hcl (Tamsulosin Hcl) 0.4 Mg Cap, 0.8 MG PO QPM for 30 Days, MG 12/31/16 Pantoprazole Sodium (PANTOPRAZOLE SODIUM) 40 Mg Inj, 40 MG PO DAILY, INJ 12/31/16 Multiple Vitamin (Multivitamins) Cap, 1 CAP PO DAILY, #30 CAP 3 Refills 12/31/16 Insulin Detemir (Levemir Flextouch) 100 Unit/Ml Inj, 20 UNIT SC HS, INJ 12/31/16 Gabapentin (Gabapentin) 100 Mg Cap, 100 MG PO BID 12/31/16 Finasteride (Finasteride) 5 Mg Tab, 5 MG PO HS for 30 Days, MG 12/31/16 Entecavir Monohydrate (Entecavir) 0.5 Mg Tab, 0.5 MG PO Q72HR, TAB 12/31/16 Atorvastatin Calcium (ATORVASTATIN CALCIUM) 20 Mg Tab, 20 MG PO HS, TAB 12/31/16 Current Medications Current Medications Medications (Trade) Dose Ordered Sig/Anish Route PRN Reason Start Time Stop Time Status Last Admin Patient Own Medication 1 gm Q8HR IV 04/14/24 17:30 UNV Hydralazine HCl (Apresoline Injection) 10 mg Q6HP PRN IV SBP>160 04/14/24 17:45 04/14/24 17:54 Review of Systems Constitutional: No symptom reported Ears, Nose, & Throat: No symptom reported Eyes: No symptom reported Pulmonary/Respiratory: No symptom reported Cardiovascular: No symptom reported Gastrointestinal: No symptom reported Genitourinary: No symptom reported Musculoskeletal: No symptom reported Skin: No symptom reported Psychiatric: No symptom reported Endocrine: No symptom reported Hemotologic/Lymphatic: No symptom reported Vital Signs Vital Signs Date Time Temp Pulse Resp B/P (MAP) Pulse Ox O2 Delivery O2 Flow Rate FiO2 04/14/24 21:31 109 110/65 04/14/24 20:20 98.6 20 99 98.6 04/14/24 11:11 Nasal Cannula* 2 28 Physical Exam General: Patient appears alert, comfortable and well-appearing. HEENT: Normocephalic, atraumatic, Sclera anicteric, conjunctiva clear, No nasal discharge or congestion. Mucous membranes moist, no tonsillar erythema or exudates. Neck: No cervical lymphadenopathy or masses. No neck stiffness. Lungs: Breath sounds clear bilaterally, no wheezes, rales, or rhonchi. No use of accessory muscles or respiratory distress. Cardiovascular: Regular rate and rhythm, no murmurs, rubs, or gallops. Abdomen: Soft, non-tender, non-distended. Bowel sounds present in all quadrants. No hepatosplenomegaly or masses. Skin: No rash, petechiae, or ecchymosis. Extremities: No edema, cyanosis, or clubbing. No tenderness to palpation, erythema, or swelling in joints. No signs of deep vein thrombosis (DVT). Neurologic: Patient is alert and oriented to person, place, and time. Cranial nerves II-XII intact. Motor strength 5/5 bilaterally in all extremities. Labs/Diagnostic Data Labs Test 04/14/24 21:24 04/14/24 06:14 04/13/24 05:03 04/12/24 14:50 Range/Units POC Glucose 224 H 70-106 mg/dl White Blood Count 7.6 # 4.4-10.8 10^3/uL Red Blood Count 4.04 L 4.5-5.90 10^6/uL Hemoglobin 8.9 L 13.5-17.5 g/dL Hematocrit 27.6 L 41.0-53.0 % Mean Corpuscular Volume 68.4 L 80.0-100.0 fL Mean Corpuscular Hemoglobin 22.0 L 28.0-32.0 pg Mean Corpuscular Hemoglobin Concent 32.1 32.0-36.0 g/dL Red Cell Distribution Width 29.6 H 11.8-14.3 % Platelet Count 148 140-450 10^3/uL Mean Platelet Volume 8.8 6.9-10.8 fL Neutrophils (%) (Auto) 79.6 37.0-80.0 % Lymphocytes (%) (Auto) 11.2 10.0-50.0 % Monocytes (%) (Auto) 7.8 0.0-12.0 % Eosinophils (%) (Auto) 0.7 0.0-7.0 % Basophils (%) (Auto) 0.7 0.0-2.0 % Neutrophils # (Auto) 6.1 1.6-8.6 10 ^3/uL Lymphocytes # (Auto) 0.9 0.4-5.4 10 ^3/uL Monocytes # (Auto) 0.6 0-1.3 10 ^3/uL Eosinophils # (Auto) 0.1 0-0.8 10 ^3/uL Basophils # (Auto) 0.1 0-0.2 10 ^3/uL Nucleated Red Blood Cells 0.1 % Sodium Level 140 136-145 mmol/L Potassium Level 5.3 H 3.5-5.1 mmol/L Chloride Level 106 98-107 mmol/L Carbon Dioxide Level 25 20-31 mmol/L Anion Gap 9 5-15 Blood Urea Nitrogen 38 H 9-23 mg/dL Creatinine 3.01 H 0.700-1.30 mg/dL Glomerular Filtration Rate Calc 20 >90 mL/min BUN/Creatinine Ratio 12.6 10.0-20.0 Serum Glucose 117 #H 74-106 mg/dL Calcium Level 8.9 8.7-10.4 mg/dL Platelet Estimate Adequate Large Platelets Few Hypochromasia (manual) Moderate Poikilocytosis (manual) Slight Anisocytosis (manual) Moderate Microcytosis Marked Ovalocytes Few [place] Cells Moderate Schistocytes Few Hemoglobin A1c 8.5 H <5.7 % A1C Test 04/12/24 02:00 04/11/24 20:45 04/11/24 17:51 04/11/24 15:46 Range/Units Magnesium Level 1.9 1.6-2.6 mg/dL Iron Level 33 L 65-175 ug/dL Total Iron Binding Capacity 167 L 250-425 ug/dL Percent Iron Saturation 19.8 L 20-55 % Ferritin 646.4 H 22-322 ng/mL Vitamin B12 Level 784 211-911 pg/mL Urine Color Yellow Yellow Urine Clarity Turbid H Clear Urine pH 5.5 5.0-9.0 Urine Specific [place] 1.014 1.001-1.035 Urine Protein 1+ H Negative Urine Ketones Negative Negative Urine Blood 1+ H Negative /uL Urine Nitrite Negative Negative Urine Bilirubin Negative Negative Urine Urobilinogen Normal Negative mg/dL Urine Leukocyte Esterase 3+ Negative /uL Urine RBC 8 0 - 3 /hpf Urine WBC 439 0 - 3 /hpf Urine WBC Clumps Present None Seen /hpf Urine Squamous Epithelial Cells Few <5 /hpf Urine Bacteria Few H None Seen /hpf Urine Glucose 2+ H Normal mg/dL Lactic Acid Level 1.2 0.4-2.0 mmol/L Troponin I High Sensitivity 14 </=54 ng/L Total Bilirubin 0.3 0.2-1.0 mg/dL Aspartate Amino Transferase (AST) 19 13-40 U/L Alanine Aminotransferase (ALT) 17 7-40 U/L Alkaline Phosphatase 100 46-116 U/L B-Type Natriuretic Peptide 106.31 0-100 pg/mL Total Protein 6.8 5.7-8.2 g/dL Albumin 4.2 3.2-4.8 g/dL Lipase 35 12-53 U/L Microbiology Date/Time Source Procedure Growth Status 04/11/24 20:45 Voided Urine Urine Culture - Preliminary Escherichia coli - ESBL Resulted Assessment 78 yo male with known history of COPD, CKD, hypertension, DM2 , Atrial fibrill ation, Lung transplant, hypertension presents with syncopal episode. Patient found to have UTI Afib with RVR hypotension h/o lung transplant recommendations IV meropenem follow sensitivity blood cx prelim neg cont immunosuppressive meds thank you for consult Plan discussed with: Patient, Other MARTA ALBARRAN MD Apr 14, 2024 22:36
[2024-04-15] VITALS (20 sets, daily range): BP systolic 103–155; BP diastolic 23–98; PULSE 90–118; RESP 14–20; TEMP 97.8–101.1; O2SAT 87–100
[2024-04-15] LABS: Chloride 105 mmol/L (98-107); Sodium 142 mmol/L (136-145)
[2024-04-15 00:01] LABS: Anion Gap 11 (5-15); Calcium 8.9 mg/dL (8.7-10.4); Carbon Dioxide 26 mmol/L (20-31)
[2024-04-15 00:07] LABS: Blood Urea Nitrogen 37 mg/dL (9-23); Glucose 158 mg/dL (74-106); Potassium 5.4 mmol/L (3.5-5.1)
--- NOTE | 2024-04-15 01:31 | DVH ---
US KIDNEY HISTORY: elevated bun and creatinine COMPARISON: US KIDNEY on DOS: 03/12/24, US KIDNEY on DOS: 03/05/24, KIDNEY on DOS: 03/24/22 TECHNIQUE: Transverse and longitudinal grayscale and color Doppler images were obtained of the kidney s and bladder. FINDINGS: Right kidney length 10 cm. No hydronephrosis or renal stones. Decreased cortical thickness. Slightly increased echogenicity. Cystic lesion measuring up to 1.9 cm. Left kidney length 9 cm. No hydronephrosis or renal stones. Decreased cortical thickness. Increased echogenicity. Cystic lesion measuring 1.8 cm. Distended urinary bladder with wall thickness measuring 5.5 mm. Prevoid urinary bladder volume of 157 mL. There is a solid avascular structure of the base of the urinary bladder measuring 7 cm. Incidental finding of small bilateral pleural effusions. IMPRESSION: Decreased bilateral renal cortical thickness and increased echogenicity concerning for medical renal disease. 7 cm mass along the base of the urinary bladder. Consider further evaluation with cystoscopy and biop sy.
[2024-04-15] MEDS: SODIUM ZIRCONIUM CYCL 10 GM PAK PO ONE (02:21)
[2024-04-15] MEDS: METOPROLOL TARTRATE 1MG/1ML-5ML VIAL IV PRN (02:24)
[2024-04-15 06:57] LABS: Anion Gap 13 (5-15); Carbon Dioxide 23 mmol/L (20-31); Chloride 104 mmol/L (98-107); Potassium 4.5 mmol/L (3.5-5.1); Sodium 140 mmol/L (136-145)
[2024-04-15 06:58] LABS: Calcium 9.5 mg/dL (8.7-10.4)
[2024-04-15 07:04] LABS: Blood Urea Nitrogen 33 mg/dL (9-23); Glucose 135 mg/dL (74-106)
--- NOTE | 2024-04-15 10:05 | DVHINCON2 ---
Date of service: Apr 15, 2024 Referring Physician Hospitalist Reason for Consultation Bladder mass PATIENT: GIANNI SCHWARTZ JRACCT: [id number] UNIT: [id number] : 1945 [facility]: [facility]GE / SEX: 78 / M ADM STATUS: ADM IN SERVICE 58 ORDERING PHYSICIAN: NATALEE MYLES ITEM PROCESSING CLERK PROCEDURE(s): KIDUS - KIDNEY REASON: elevated bun and creatinine ORDER NUMBER(s): [id number], ACCESSION NUMBER(s): [id number] US KIDNEY HISTORY: elevated bun and creatinine COMPARISON: US KIDNEY on DOS: 03/12/24, US KIDNEY on DOS: 03/05/24, KIDNEY on DOS: 03/24/22 TECHNIQUE: Transverse and longitudinal grayscale and color Doppler images were obtained of the kidneys and bladder. FINDINGS: Right kidney length 10 cm. No hydronephrosis or renal stones. Decreased cortical thickness. Slightly increased echogenicity. Cystic lesion measuring up to 1.9 cm. Left kidney length 9 cm. No hydronephrosis or renal stones. Decreased cortical thickness. Increased echogenicity. Cystic lesion measuring 1.8 cm. Distended urinary bladder with wall thickness measuring 5.5 mm. Prevoid urinary bladder volume of 157 mL. There is a solid avascular structure of the base of the urinary bladder measuring 7 cm. Incidental finding of small bilateral pleural effusions. IMPRESSION: Decreased bilateral renal cortical thickness and increased echogenicity concerning for medical renal disease. 7 cm mass along the base of the urinary bladder. Consider further evaluation with cystoscopy and biopsy. ATED BY: LANI HENRY DO DICTATED DATE/TIME: 04/15/24127 SIGNED BY: LANI HENRY DO SIGNED DATE/TIME: 04/15/24127 CC: History of Present Illness Patient found to have a 7 cm bladder mass per US. No gross hematuria. Patient states that he broke his tailbone two weeks ago and since then has had difficulty with urination. He has on Flomax therapy for known BPH. He staged he has difficulty emptying his bladder and urinary stream is slow. 78-year-old male with a history of COPD, CKD, DM2, HTN, A Fib, Lung transplant who is in poor overall health, patient presents with a chief complaint of s/p syncopal event approximately 1/2 hour prior to arrival to the hospital. Patient has been in [facility] [place] for management and was discharged today. The patient went to the parking lot and had a syncopal event that was witnessed by his daughter. While in ED patient went into SVT with heart rate of 190's, converted to atrial fibrillation with RVR started on Amiodarone drip per protocol. Patient denies chest pain, headaches, dizziness, nausea, vomiting, palpitations, dysuria, hematuria, abdominal pain, diarrhea, melena , hematochezia. Home Meds Active Scripts Amoxicillin & Pot Clavulanate (AUGMENTIN TABLET) 875 Mg Tb, 875 MG PO BID for 10 Days, #20 TAB Prov:SANDY HEWITT MD 03/14/24 Apixaban Base (ELIQUIS) 2.5 Mg Tab, 2.5 MG PO BID for 30 Days, #60 TAB Prov:SANDY HEWITT MD 03/14/24 Hydrocodone-Acetaminophen (Hydrocodone Bitartrate/AC 5-325 mg) 1 Tab Tab, 1 TAB PO Q8HPRN PRN, #14 TAB Prov:HERRERA ENRIQUEZ MD 03/09/24 Calcium Citrate-Vitamin D (Calcitrate Plus D 315-200 mg-Unit) 1 Tab Tab, 1 TAB PO BID, #90 TAB Prov:HERRERA ENRIQUEZ MD 03/09/24 Cyclobenzaprine Hcl (Cyclobenzaprine Hcl) 5 Mg Tab, 1 TAB PO TID, #30 TAB Prov:HERRERA ENRIQUEZ MD 03/09/24 Reported Medications Hydrochlorothiazide (Hydrochlorothiazide) 12.5 Mg Cap, 12.5 MG PO DAILY, CAP 03/13/24 Losartan Potassium (Losartan Potassium) 50 Mg Tab, 50 MG PO DAILY, MG 03/13/24 Amlodipine Besylate (Amlodipine Besylate) 10 Mg Tab, 10 MG PO DAILY, TAB 03/13/24 Metoprolol Tartrate (Lopressor) 25 Mg Tb, 25 MG PO Q12HR, TAB 03/13/24 Nateglinide (Nateglinide) 120 Mg Tab, 120 MG PO TIDWM, TAB 03/13/24 Insulin Lispro (Humalog Kwikpen) 100 Unit/Ml Inj, 5 UNIT SC AC, INJ 03/13/24 Everolimus (Everolimus) 0.5 Mg Tab, 4 TAB PO BIDAC, TAB 03/13/24 Prednisone (Prednisone) 2.5 Mg Tab, 2.5 MG PO TID, TAB 03/13/24 Mycophenolate Mofetil (Mycophenolate Mofetil) 250 Mg Cap, 500 MG PO BID, CAP 03/13/24 Tamsulosin Hcl (Tamsulosin Hcl) 0.4 Mg Cap, 0.8 MG PO QPM for 30 Days, MG 12/31/16 Pantoprazole Sodium (PANTOPRAZOLE SODIUM) 40 Mg Inj, 40 MG PO DAILY, INJ 12/31/16 Multiple Vitamin (Multivitamins) Cap, 1 CAP PO DAILY, #30 CAP 3 Refills 12/31/16 Insulin Detemir (Levemir Flextouch) 100 Unit/Ml Inj, 20 UNIT SC HS, INJ 12/31/16 Gabapentin (Gabapentin) 100 Mg Cap, 100 MG PO BID 12/31/16 Finasteride (Finasteride) 5 Mg Tab, 5 MG PO HS for 30 Days, MG 12/31/16 Entecavir Monohydrate (Entecavir) 0.5 Mg Tab, 0.5 MG PO Q72HR, TAB 12/31/16 Atorvastatin Calcium (ATORVASTATIN CALCIUM) 20 Mg Tab, 20 MG PO HS, TAB 12/31/16 Past Medical History Cardiac: AFIB, HTN Pulmonary: COPD Central Nervous System: No pertinent Hx GI: No pertinent Hx Hemotology/Oncology: No pertinent Hx Hepatobiliary: No pertinent Hx Psychiatric: No pertinent Hx Musculoskeletal: No pertinent Hx Rheumotologic: No pertinent Hx Infectious Disease: No peritnent Hx ENT: No pertinent Hx Renal/: CKD Endocrine: NIDDM Dermatology: No pertinent Hx Past Surgical History lung transplant Family History: Cerebrovascular accident (CVA) G8 FATHER Diabetes mellitus G8 MOTHER FHx: cancer G8 MOTHER Allergies: Coded Allergies: No Known Drug Allergy (Verified Allergy, Unknown, 08/25/15) Home Meds Active Scripts Amoxicillin & Pot Clavulanate (AUGMENTIN TABLET) 875 Mg Tb, 875 MG PO BID for 10 Days, #20 TAB Prov:SANDY HEWITT MD 03/14/24 Apixaban Base (ELIQUIS) 2.5 Mg Tab, 2.5 MG PO BID for 30 Days, #60 TAB Prov:SANDY HEWITT MD 03/14/24 Hydrocodone-Acetaminophen (Hydrocodone Bitartrate/AC 5-325 mg) 1 Tab Tab, 1 TAB PO Q8HPRN PRN, #14 TAB Prov:HERRERA ENRIQUEZ MD 03/09/24 Calcium Citrate-Vitamin D (Calcitrate Plus D 315-200 mg-Unit) 1 Tab Tab, 1 TAB PO BID, #90 TAB Prov:HERRERA ENRIQUEZ MD 03/09/24 Cyclobenzaprine Hcl (Cyclobenzaprine Hcl) 5 Mg Tab, 1 TAB PO TID, #30 TAB Prov:HERRERA ENRIQUEZ MD 03/09/24 Reported Medications Hydrochlorothiazide (Hydrochlorothiazide) 12.5 Mg Cap, 12.5 MG PO DAILY, CAP 03/13/24 Losartan Potassium (Losartan Potassium) 50 Mg Tab, 50 MG PO DAILY, MG 03/13/24 Amlodipine Besylate (Amlodipine Besylate) 10 Mg Tab, 10 MG PO DAILY, TAB 03/13/24 Metoprolol Tartrate (Lopressor) 25 Mg Tb, 25 MG PO Q12HR, TAB 03/13/24 Nateglinide (Nateglinide) 120 Mg Tab, 120 MG PO TIDWM, TAB 03/13/24 Insulin Lispro (Humalog Kwikpen) 100 Unit/Ml Inj, 5 UNIT SC AC, INJ 03/13/24 Everolimus (Everolimus) 0.5 Mg Tab, 4 TAB PO BIDAC, TAB 03/13/24 Prednisone (Prednisone) 2.5 Mg Tab, 2.5 MG PO TID, TAB 03/13/24 Mycophenolate Mofetil (Mycophenolate Mofetil) 250 Mg Cap, 500 MG PO BID, CAP 03/13/24 Tamsulosin Hcl (Tamsulosin Hcl) 0.4 Mg Cap, 0.8 MG PO QPM for 30 Days, MG 12/31/16 Pantoprazole Sodium (PANTOPRAZOLE SODIUM) 40 Mg Inj, 40 MG PO DAILY, INJ 12/31/16 Multiple Vitamin (Multivitamins) Cap, 1 CAP PO DAILY, #30 CAP 3 Refills 12/31/16 Insulin Detemir (Levemir Flextouch) 100 Unit/Ml Inj, 20 UNIT SC HS, INJ 12/31/16 Gabapentin (Gabapentin) 100 Mg Cap, 100 MG PO BID 12/31/16 Finasteride (Finasteride) 5 Mg Tab, 5 MG PO HS for 30 Days, MG 12/31/16 Entecavir Monohydrate (Entecavir) 0.5 Mg Tab, 0.5 MG PO Q72HR, TAB 12/31/16 Atorvastatin Calcium (ATORVASTATIN CALCIUM) 20 Mg Tab, 20 MG PO HS, TAB 12/31/16 Current Medications Current Medications Medications (Trade) Dose Ordered Sig/Anish Route PRN Reason Start Time Stop Time Status Last Admin Patient Own Medication 1 gm Q8HR IV 04/14/24 17:30 UNV Hydralazine HCl (Apresoline Injection) 10 mg Q6HP PRN IV SBP>160 04/14/24 17:45 04/14/24 17:54 Review of Systems Constitutional: No symptom reported Ears, Nose, & Throat: No symptom reported Eyes: No symptom reported Pulmonary/Respiratory: No symptom reported Cardiovascular: No symptom reported Gastrointestinal: No symptom reported Genitourinary: No symptom reported Musculoskeletal: No symptom reported Skin: No symptom reported Psychiatric: No symptom reported Endocrine: No symptom reported Hemotologic/Lymphatic: No symptom reported Vital Signs Vital Signs Date Time Temp Pulse Resp B/P (MAP) Pulse Ox O2 Delivery O2 Flow Rate FiO2 04/15/24 08:48 97.8 94 18 113/77 (89) 87 97.8 04/15/24 06:41 Nasal Cannula* 2 28 Physical Exam Vital Signs Date Time Temp Pulse Resp B/P (MAP) Pulse Ox O2 Delivery O2 Flow Rate FiO2 04/11/24 22:30 98.0 114 15 123/65 98.0 04/11/24 19:30 Nasal Cannula* 4 36 04/11/24 16:45 100 General Appeara: Well developed, Well nourished, Normal Appearance Head Exam: Normal inspection Neck Exam: Normal inspection, Non-tender, Normal alignment Eye Exam: bilateral eye Normal inspection, bilateral eye PERRL, bilateral eye EOMI Ear Exam: bilateral ear Auricle normal Nasal Exam: Normal inspection Mouth: Normal Inspection Pulmonary/Respiratory: Normal inspection, Normal breath sounds, Chest non- tender, Lungs clear Cardiovascular/Chest: Normal inspection, Tachycardia, Irregularly irregular Peripheral Pulses: 2+ dorsalis pedis (R), 2+ dorsalis pedis (L), 2+ Radial (R), 2+ Radial (L) Abdominal Exam: Normal bowel sounds, Soft, No tenderness Rectal Exam: Deferred Back Exam: Normal inspection Male Genital Exam: Not done SCIENTIFIC ADVISOR Exam: Normal hearing, Normal speech, PERRL Motor/Sensory: Normal sensory function, Normal motor function Neuro/Mental St: Alert, Oriented Appearance: Appropriate appearance, Appropriate insight Eye contact/ Speech: Cooperative, Good eye contact, Normal speech Thoughts/Psych: Normal thought pattern Coordination/Gait: Normal finger->nose Skin Exam: Normal inspection, Normal color, Warm/dry Labs/Diagnostic Data Labs Test 04/15/24 06:12 04/15/24 05:58 04/14/24 06:14 04/13/24 05:03 Range/Units Sodium Level 140 136-145 mmol/L Potassium Level 4.5 3.5-5.1 mmol/L Chloride Level 104 98-107 mmol/L Carbon Dioxide Level 23 20-31 mmol/L Anion Gap 13 5-15 Blood Urea Nitrogen 33 H 9-23 mg/dL Creatinine 2.99 H 0.700-1.30 mg/dL Glomerular Filtration Rate Calc 21 >90 mL/min BUN/Creatinine Ratio 11.0 10.0-20.0 Serum Glucose 135 H 74-106 mg/dL Calcium Level 9.5 8.7-10.4 mg/dL POC Glucose 139 H 70-106 mg/dl White Blood Count 7.6 # 4.4-10.8 10^3/uL Red Blood Count 4.04 L 4.5-5.90 10^6/uL Hemoglobin 8.9 L 13.5-17.5 g/dL Hematocrit 27.6 L 41.0-53.0 % Mean Corpuscular Volume 68.4 L 80.0-100.0 fL Mean Corpuscular Hemoglobin 22.0 L 28.0-32.0 pg Mean Corpuscular Hemoglobin Concent 32.1 32.0-36.0 g/dL Red Cell Distribution Width 29.6 H 11.8-14.3 % Platelet Count 148 140-450 10^3/uL Mean Platelet Volume 8.8 6.9-10.8 fL Neutrophils (%) (Auto) 79.6 37.0-80.0 % Lymphocytes (%) (Auto) 11.2 10.0-50.0 % Monocytes (%) (Auto) 7.8 0.0-12.0 % Eosinophils (%) (Auto) 0.7 0.0-7.0 % Basophils (%) (Auto) 0.7 0.0-2.0 % Neutrophils # (Auto) 6.1 1.6-8.6 10 ^3/uL Lymphocytes # (Auto) 0.9 0.4-5.4 10 ^3/uL Monocytes # (Auto) 0.6 0-1.3 10 ^3/uL Eosinophils # (Auto) 0.1 0-0.8 10 ^3/uL Basophils # (Auto) 0.1 0-0.2 10 ^3/uL Nucleated Red Blood Cells 0.1 % Platelet Estimate Adequate Large Platelets Few Hypochromasia (manual) Moderate Poikilocytosis (manual) Slight Anisocytosis (manual) Moderate Microcytosis Marked Ovalocytes Few [place] Cells Moderate Schistocytes Few Test 04/12/24 14:50 04/12/24 02:00 04/11/24 20:45 04/11/24 17:51 Range/Units Hemoglobin A1c 8.5 H <5.7 % A1C Magnesium Level 1.9 1.6-2.6 mg/dL Iron Level 33 L 65-175 ug/dL Total Iron Binding Capacity 167 L 250-425 ug/dL Percent Iron Saturation 19.8 L 20-55 % Ferritin 646.4 H 22-322 ng/mL Vitamin B12 Level 784 211-911 pg/mL Urine Color Yellow Yellow Urine Clarity Turbid H Clear Urine pH 5.5 5.0-9.0 Urine Specific [place] 1.014 1.001-1.035 Urine Protein 1+ H Negative Urine Ketones Negative Negative Urine Blood 1+ H Negative /uL Urine Nitrite Negative Negative Urine Bilirubin Negative Negative Urine Urobilinogen Normal Negative mg/dL Urine Leukocyte Esterase 3+ Negative /uL Urine RBC 8 0 - 3 /hpf Urine WBC 439 0 - 3 /hpf Urine WBC Clumps Present None Seen /hpf Urine Squamous Epithelial Cells Few <5 /hpf Urine Bacteria Few H None Seen /hpf Urine Glucose 2+ H Normal mg/dL Lactic Acid Level 1.2 0.4-2.0 mmol/L Troponin I High Sensitivity 14 </=54 ng/L Test 04/11/24 15:46 Range/Units Total Bilirubin 0.3 0.2-1.0 mg/dL Aspartate Amino Transferase (AST) 19 13-40 U/L Alanine Aminotransferase (ALT) 17 7-40 U/L Alkaline Phosphatase 100 46-116 U/L B-Type Natriuretic Peptide 106.31 0-100 pg/mL Total Protein 6.8 5.7-8.2 g/dL Albumin 4.2 3.2-4.8 g/dL Lipase 35 12-53 U/L Microbiology Date/Time Source Procedure Growth Status 04/11/24 20:45 Voided Urine Urine Culture - Preliminary Escherichia coli - ESBL Resulted Assessment Bladder mass CKD BPH Plan/Recommendation Cystoscopy diagnostic at bedside. Plan discussed with: Patient, Other COMFORT CONTEH MD Apr 15, 2024 10:05
[2024-04-15 11:46] LABS: Protein, Urine 212.7 mg/dL (1-14); Protein, Urine 216.7 mg/dL (1-14)
[2024-04-15 11:49] LABS: Creatinine, Urine 93.53 mg/dL (30.0-125.0); Creatinine, Urine 94.09 mg/dL (30.0-125.0); Urine Protein/Creatinine Ratio 2.3
[2024-04-15] MEDS: SODIUM CHLORIDE 0.9% 1,000 ML IV SCH (11:56)
--- NOTE | 2024-04-15 12:53 | DVHCONRES ---
Date Seen: Apr 15, 2024 Resident Creating Document: CHRISTIANO ROACH RESIDENT Referring Physician DAX Reason for Consultation DAX History of Present Illness A 78-year-old male with a history of COPD, CKD, DM2, HTN, A Fib, and a lung transplant, in poor overall health, presented with a syncopal event approximately 30 minutes before arriving at the hospital. He had been discharged from [facility] earlier today. The syncopal event was witnessed by his daughter in the parking lot. In the ED, the patient experienced SVT with a heart rate in the 190s, which converted to atrial fibrillation with RVR. He was started on an amiodarone drip per protocol. The patient denies chest pain, headaches, dizziness, nausea, vomiting, palpitations, dysuria, hematuria, abdominal pain, diarrhea, melena, and hematochezia. A nephrology consultation was done for evaluation of acute kidney injury. His creatinine was elevated at 2.99 (baseline around 2.40), GFR was 21, urine sodium was 64, urine creatinine was 93.53, and urine total protein was 212.7 mg/dL. The patient was found to have a UTI with Gram-negative ESBL. Blood cultures are negative so far. Cardiology and infectious disease consultations have been done. He is on an amiodarone drip and receiving IV normal saline at 60 mL/hour. No new complaints have been reported Past Medical History As per HPI Past Surgical History As per HPI Family History: Cerebrovascular accident (CVA) G8 FATHER Diabetes mellitus G8 MOTHER FHx: cancer G8 MOTHER Allergies: Coded Allergies: No Known Drug Allergy (Verified Allergy, Unknown, 08/25/15) Home Meds Active Scripts Amoxicillin & Pot Clavulanate (AUGMENTIN TABLET) 875 Mg Tb, 875 MG PO BID for 10 Days, #20 TAB Prov:SANDY HEWITT MD 03/14/24 Apixaban Base (ELIQUIS) 2.5 Mg Tab, 2.5 MG PO BID for 30 Days, #60 TAB Prov:SANDY HEWITT MD 03/14/24 Hydrocodone-Acetaminophen (Hydrocodone Bitartrate/AC 5-325 mg) 1 Tab Tab, 1 TAB PO Q8HPRN PRN, #14 TAB Prov:HERRERA ENRIQUEZ MD 03/09/24 Calcium Citrate-Vitamin D (Calcitrate Plus D 315-200 mg-Unit) 1 Tab Tab, 1 TAB PO BID, #90 TAB Prov:HERRERA ENRIQUEZ MD 03/09/24 Cyclobenzaprine Hcl (Cyclobenzaprine Hcl) 5 Mg Tab, 1 TAB PO TID, #30 TAB Prov:HERRERA ENRIQUEZ MD 03/09/24 Reported Medications Hydrochlorothiazide (Hydrochlorothiazide) 12.5 Mg Cap, 12.5 MG PO DAILY, CAP 03/13/24 Losartan Potassium (Losartan Potassium) 50 Mg Tab, 50 MG PO DAILY, MG 03/13/24 Amlodipine Besylate (Amlodipine Besylate) 10 Mg Tab, 10 MG PO DAILY, TAB 03/13/24 Metoprolol Tartrate (Lopressor) 25 Mg Tb, 25 MG PO Q12HR, TAB 03/13/24 Nateglinide (Nateglinide) 120 Mg Tab, 120 MG PO TIDWM, TAB 03/13/24 Insulin Lispro (Humalog Kwikpen) 100 Unit/Ml Inj, 5 UNIT SC AC, INJ 03/13/24 Everolimus (Everolimus) 0.5 Mg Tab, 4 TAB PO BIDAC, TAB 03/13/24 Prednisone (Prednisone) 2.5 Mg Tab, 2.5 MG PO TID, TAB 03/13/24 Mycophenolate Mofetil (Mycophenolate Mofetil) 250 Mg Cap, 500 MG PO BID, CAP 03/13/24 Tamsulosin Hcl (Tamsulosin Hcl) 0.4 Mg Cap, 0.8 MG PO QPM for 30 Days, MG 12/31/16 Pantoprazole Sodium (PANTOPRAZOLE SODIUM) 40 Mg Inj, 40 MG PO DAILY, INJ 12/31/16 Multiple Vitamin (Multivitamins) Cap, 1 CAP PO DAILY, #30 CAP 3 Refills 12/31/16 Insulin Detemir (Levemir Flextouch) 100 Unit/Ml Inj, 20 UNIT SC HS, INJ 12/31/16 Gabapentin (Gabapentin) 100 Mg Cap, 100 MG PO BID 12/31/16 Finasteride (Finasteride) 5 Mg Tab, 5 MG PO HS for 30 Days, MG 12/31/16 Entecavir Monohydrate (Entecavir) 0.5 Mg Tab, 0.5 MG PO Q72HR, TAB 12/31/16 Atorvastatin Calcium (ATORVASTATIN CALCIUM) 20 Mg Tab, 20 MG PO HS, TAB 12/31/16 Current Medications Current Medications Medications (Trade) Dose Ordered Sig/Anish Route PRN Reason Start Time Stop Time Status Last Admin Patient Own Medication 1 gm Q8HR IV 04/14/24 17:30 UNV Hydralazine HCl (Apresoline Injection) 10 mg Q6HP PRN IV SBP>160 04/14/24 17:45 04/14/24 17:54 Sodium Chloride 1,000 ml @ 60 mls/hr [id number] IV 04/15/24 10:15 04/15/24 11:56 Review of Systems Patient complaining of mild shortness of breath, denying palpitation at this point. Vital Signs Vital Signs Date Time Temp Pulse Resp B/P (MAP) Pulse Ox O2 Delivery O2 Flow Rate FiO2 04/15/24 12:05 116 18 100 04/15/24 10:30 Nasal Cannula 2.0 04/15/24 10:30 28 04/15/24 10:28 121/43 04/15/24 08:48 97.8 97.8 Physical Exam General Appearance: Cooperative. Well developed. Well nourished. NAD Head Exam: Normal inspection Neck Exam: Normal inspection. Non-tender. Normal alignment Pulmonary/Respiratory: Chest non-tender. Clear bilateral breath sounds Cardiovascular/Chest: Regular rate and rhythm. No murmurs. No JVD. Peripheral Pulses: 2+ Radial (R). 2+ Radial (L). 2+ Pedal (R). 2+ Pedal (L) Abdominal Exam: Normal bowel sounds. Soft. Nontender. No hepatospenomegaly. No masses Ankle Exam: Negative ankle edema Lower extremities: Negative lower extremity edema Neuro/Mental Status: A&O x4. Coherent Thoughts/Psych: Normal thought pattern. Appropriate mood and affect. Good judgement and insight Appearance: In no acute distress Skin Exam: Normal inspection. Normal color. Warm. Dry Labs/Diagnostic Data Labs Test 04/15/24 11:51 04/15/24 10:30 04/15/24 06:12 04/14/24 06:14 Range/Units POC Glucose 140 H 70-106 mg/dl Urine Creatinine 94.09 30.0-125.0 mg/dL Urine Protein/Creatinine Ratio 2.30 Urine Sodium 64 40-220 mmol/L Urine Total Protein 216.7 H 1-14 mg/dL Sodium Level 140 136-145 mmol/L Potassium Level 4.5 3.5-5.1 mmol/L Chloride Level 104 98-107 mmol/L Carbon Dioxide Level 23 20-31 mmol/L Anion Gap 13 5-15 Blood Urea Nitrogen 33 H 9-23 mg/dL Creatinine 2.99 H 0.700-1.30 mg/dL Glomerular Filtration Rate Calc 21 >90 mL/min BUN/Creatinine Ratio 11.0 10.0-20.0 Serum Glucose 135 H 74-106 mg/dL Calcium Level 9.5 8.7-10.4 mg/dL White Blood Count 7.6 # 4.4-10.8 10^3/uL Red Blood Count 4.04 L 4.5-5.90 10^6/uL Hemoglobin 8.9 L 13.5-17.5 g/dL Hematocrit 27.6 L 41.0-53.0 % Mean Corpuscular Volume 68.4 L 80.0-100.0 fL Mean Corpuscular Hemoglobin 22.0 L 28.0-32.0 pg Mean Corpuscular Hemoglobin Concent 32.1 32.0-36.0 g/dL Red Cell Distribution Width 29.6 H 11.8-14.3 % Platelet Count 148 140-450 10^3/uL Mean Platelet Volume 8.8 6.9-10.8 fL Neutrophils (%) (Auto) 79.6 37.0-80.0 % Lymphocytes (%) (Auto) 11.2 10.0-50.0 % Monocytes (%) (Auto) 7.8 0.0-12.0 % Eosinophils (%) (Auto) 0.7 0.0-7.0 % Basophils (%) (Auto) 0.7 0.0-2.0 % Neutrophils # (Auto) 6.1 1.6-8.6 10 ^3/uL Lymphocytes # (Auto) 0.9 0.4-5.4 10 ^3/uL Monocytes # (Auto) 0.6 0-1.3 10 ^3/uL Eosinophils # (Auto) 0.1 0-0.8 10 ^3/uL Basophils # (Auto) 0.1 0-0.2 10 ^3/uL Nucleated Red Blood Cells 0.1 % Test 04/13/24 05:03 04/12/24 14:50 04/12/24 02:00 04/11/24 20:45 Range/Units Platelet Estimate Adequate Large Platelets Few Hypochromasia (manual) Moderate Poikilocytosis (manual) Slight Anisocytosis (manual) Moderate Microcytosis Marked Ovalocytes Few Dona Cells Moderate Schistocytes Few Hemoglobin A1c 8.5 H <5.7 % A1C Magnesium Level 1.9 1.6-2.6 mg/dL Iron Level 33 L 65-175 ug/dL Total Iron Binding Capacity 167 L 250-425 ug/dL Percent Iron Saturation 19.8 L 20-55 % Ferritin 646.4 H 22-322 ng/mL Vitamin B12 Level 784 211-911 pg/mL Urine Color Yellow Yellow Urine Clarity Turbid H Clear Urine pH 5.5 5.0-9.0 Urine Specific [place] 1.014 1.001-1.035 Urine Protein 1+ H Negative Urine Ketones Negative Negative Urine Blood 1+ H Negative /uL Urine Nitrite Negative Negative Urine Bilirubin Negative Negative Urine Urobilinogen Normal Negative mg/dL Urine Leukocyte Esterase 3+ Negative /uL Urine RBC 8 0 - 3 /hpf Urine WBC 439 0 - 3 /hpf Urine WBC Clumps Present None Seen /hpf Urine Squamous Epithelial Cells Few <5 /hpf Urine Bacteria Few H None Seen /hpf Urine Glucose 2+ H Normal mg/dL Test 04/11/24 17:51 04/11/24 15:46 Range/Units Lactic Acid Level 1.2 0.4-2.0 mmol/L Troponin I High Sensitivity 14 </=54 ng/L Total Bilirubin 0.3 0.2-1.0 mg/dL Aspartate Amino Transferase (AST) 19 13-40 U/L Alanine Aminotransferase (ALT) 17 7-40 U/L Alkaline Phosphatase 100 46-116 U/L B-Type Natriuretic Peptide 106.31 0-100 pg/mL Total Protein 6.8 5.7-8.2 g/dL Albumin 4.2 3.2-4.8 g/dL Lipase 35 12-53 U/L Microbiology Date/Time Source Procedure Growth Status 04/11/24 20:45 Voided Urine Urine Culture - Final Escherichia coli - ESBL Complete Assessment DAX on CKD stage IV likely hemodynamically mediated in setting of sepsis Sepsis due to UTI Atrial fibrillation with RVR Syncopal episode Hypotension Plan/recommendation -continue IV fluid normal saline 60 mL/hour. Continue monitoring urine output. -FENa (Fractional Excretion of Sodium): 1.46%: Could be prerenal or intrinsic cause of DAX -Protein Creatinine Ratio: 2.27 -2.3 g/day Estimated 24 hour urinary protein excretion -strict I&O -avoid nephrotoxic drugs -continue to monitor kidney function -antibiotic per hospitalist team. -we will closely follow up. Addendum Patient seen and examined, plan discussed with resident. Agree with above, we will follow closely Plan discussed with: Patient, Other (RN) CHRISTIANO ROACH RESIDENT Apr 15, 2024 12:53 BRENDEN SINGH MD Apr 15, 2024 18:29
--- NOTE | 2024-04-15 16:42 | DVHPN2 ---
Subjective OVERNIGHT EVENTS NOTED PATIENT IS STILL ON AMIODARONE DRIP, patient is complaining of fever and rigors temperature was 100.4. Patient's urine culture came back ESBL positive. Blood culture still pending. Reviewed: Care Plan Changes from previous H/P or p: No Changes Objective Vitals Vital Signs Date Time Temp Pulse Resp B/P (MAP) Pulse Ox O2 Delivery O2 Flow Rate FiO2 04/15/24 13:00 99.8 118 20 142/62 (88) 98 99.8 04/15/24 10:30 Nasal Cannula 2.0 04/15/24 10:30 28 Intake/Output Intake and Output 04/15/24 07:00 Intake Total 666.670 ml Output Total 650 ml Balance 16.670 ml Intake Oral 500 ml IV Total 166.670 ml Output Urine Total 650 ml Exam HEENT PUPILS REACTIVE NECK IS SUPPLE CVS S1-S2 IRREGULAR IRREGULAR RATE AND RHYTHM RESPIRATORY BY THE DEGREE OF GI POSITIVE BOWEL SOUNDS EXTREMITY NO PEDAL EDEMA PREDATOR CONTROL TRAPPER NO MOTOR DEFICIT Medications Current Medications Medications Dose Ordered Sig/Anish Route Start Time Stop Time Status Last Admin Dose Admin Metoprolol Tartrate 2.5 mg Q6HPRN PRN IV 04/12/24 00:45 04/15/24 02:24 2.5 MG Amiodarone HCl 250 ml @ 16.667 mls/ hr Q15H IV 04/12/24 07:30 04/15/24 02:12 16.667 MLS/HR Ondansetron HCl 4 mg Q6HPRN PRN IV 04/12/24 01:45 04/12/24 18:21 4 MG Morphine Sulfate 2 mg Q6HPRN PRN IV 04/12/24 01:45 04/12/24 18:22 2 MG Pantoprazole Sodium 40 mg DAILY IV 04/12/24 10:00 04/15/24 10:28 40 MG Acetaminophen 650 mg Q6HPRN PRN PO 04/12/24 01:45 04/15/24 01:57 650 MG Acetaminophen/ Hydrocodone Bitart 1 tab Q6HPRN PRN PO 04/12/24 01:45 04/12/24 10:47 1 TAB Diagnostic Test (Pha) 1 strip ACHS 04/12/24 07:00 04/15/24 11:52 1 STRIP Levalbuterol HCl 0.625 mg Q6HR NEB 04/12/24 06:00 04/15/24 11:55 0.625 MG Insulin Human Regular HS SC 04/12/24 22:00 04/14/24 21:33 4 UNITS Insulin Human Regular AC SC 04/12/24 17:00 04/15/24 06:06 2 UNITS Dextrose 50 ml UD PRN IV 04/12/24 15:45 Tamsulosin HCl 0.4 mg QPM PO 04/12/24 18:00 04/14/24 17:54 0.4 MG Metoprolol Succinate 25 mg BID PO 04/13/24 15:30 04/15/24 10:28 25 MG Patient Own Medication 1 gm Q8HR IV 04/14/24 17:30 UNV Hydralazine HCl 10 mg Q6HP PRN IV 04/14/24 17:45 04/14/24 17:54 10 MG Sodium Chloride 1,000 ml @ 60 mls/hr [id number] IV 04/15/24 10:15 04/15/24 11:56 60 MLS/HR Lactulose 30 ml Q8HPRN PO 04/15/24 22:00 Future Hold Docusate Sodium 100 mg BID PO 04/15/24 22:00 Sennosides 17.2 mg HS PO 04/15/24 22:00 Laboratory Results Laboratory Tests 04/14/24 06:14 04/15/24 06:12 Chemistry Test 04/14/24 23:38 04/15/24 06:12 Calcium Level 8.9 mg/dL (8.7-10.4) 9.5 mg/dL (8.7-10.4) Urinalysis Test 04/11/24 20:45 04/15/24 10:30 Urine Color Yellow (Yellow) Urine Clarity Turbid (Clear) H Urine pH 5.5 (5.0-9.0) Urine Specific [place] 1.014 (1.001-1.035) Urine Protein 1+ (Negative) H Urine Ketones Negative (Negative) Urine Blood 1+ /uL (Negative) H Urine Nitrite Negative (Negative) Urine Bilirubin Negative (Negative) Urine Urobilinogen Normal mg/dL (Negative) Urine Leukocyte Esterase 3+ /uL (Negative) Urine RBC 8 /hpf (0 - 3) Urine WBC 439 /hpf (0 - 3) Urine WBC Clumps Present /hpf (None Seen) Urine Squamous Epithelial Cells Few /hpf (<5) Urine Bacteria Few /hpf (None Seen) H Urine Glucose 2+ mg/dL (Normal) H Urine Creatinine 94.09 mg/dL (30.0-125.0) Urine Protein/Creatinine Ratio 2.30 Urine Sodium 64 mmol/L (40-220) Urine Total Protein 216.7 mg/dL (1-14) H Microbiology Microbiology Date/Time Source Procedure Growth Status 04/11/24 20:45 Voided Urine Urine Culture - Final Escherichia coli - ESBL Complete Assessment/Plan Assessment/Plan 78 yo male with known history of COPD, CKD, hypertension, DM2 , Atrial fibrillation, Lung transplant, hypertension presents with syncopal episode. Patient found to have 1. AFib with RVR currently on amiodarone drip 2. Acute kidney injury suspected secondary to vasomotor nephropathy with the underlying CKD 3. GRAM-NEGATIVE UTI with a ESBL 4. Syncope 5. Anemia 6. COPD 7. Status post lung transplant 8. Febrile episode rule out bacteremia -blood cultures x2 -continue meropenem, Infectious Disease consultation -continue METOPROLOL, continue amiodarone drip, follow up Cardiology recommendations. Plan discussed with: Patient My Orders Orders - SANDY HEWITT MD Procedure Category Date Status Time Meropenem 500mg PHA 04/14/24 In Process Premix (Merrem 18:15 * Infectious Rula- CONS 04/14/24 Transmitted Mallad 17:22 Hydralazine Injection PHA 04/14/24 In Process (Apresoline Inject 17:45 Lactulose Oral PHA 04/15/24 In Process 22:00 Docusate Sodium PHA 04/15/24 In Process Capsule (Colace 22:00 Senna Pod Tablet PHA 04/15/24 In Process (Senokot Tablet) 22:00 Date of Service: Apr 15, 2024 Billing Provider: SANDY HEWITT MD Common Visit Codes: NOT BILLABLE SANDY HEWITT MD Apr 15, 2024 16:42
--- NOTE | 2024-04-15 18:43 | DVHPN2 ---
Progress Note - Dictate Date Seen: Apr 15, 2024 Medical Necessity Reason Pt with a Central, PICC or Fol: No Subjective Patient's temperature is elevated at 100.4. Patient's urine culture came back ESBL positive. Blood culture still pending. vital signs Vital Sign Date Time Temp Pulse Resp B/P (MAP) Pulse Ox O2 Delivery O2 Flow Rate FiO2 04/15/24 17:00 97.8 114 18 155/98 (117) 96 97.8 04/15/24 10:30 Nasal Cannula 2.0 04/15/24 10:30 28 Total Intake and Output 04/14/24 04/14/24 04/15/24 15:00 23:00 07:00 Intake Total 183.335 ml 483.335 ml Output Total 300 ml 350 ml Balance -116.665 ml 133.335 ml medications Current Medications Medications Dose Ordered Sig/Anish Route Start Time Stop Time Status Last Admin Dose Admin Metoprolol Tartrate 2.5 mg Q6HPRN PRN IV 04/12/24 00:45 04/15/24 02:24 2.5 MG Amiodarone HCl 250 ml @ 16.667 mls/ hr Q15H IV 04/12/24 07:30 04/15/24 16:50 16.667 MLS/HR Ondansetron HCl 4 mg Q6HPRN PRN IV 04/12/24 01:45 04/12/24 18:21 4 MG Morphine Sulfate 2 mg Q6HPRN PRN IV 04/12/24 01:45 04/12/24 18:22 2 MG Pantoprazole Sodium 40 mg DAILY IV 04/12/24 10:00 04/15/24 10:28 40 MG Acetaminophen 650 mg Q6HPRN PRN PO 04/12/24 01:45 04/15/24 01:57 650 MG Acetaminophen/ Hydrocodone Bitart 1 tab Q6HPRN PRN PO 04/12/24 01:45 04/12/24 10:47 1 TAB Diagnostic Test (Pha) 1 strip ACHS 04/12/24 07:00 04/15/24 16:50 1 STRIP Levalbuterol HCl 0.625 mg Q6HR NEB 04/12/24 06:00 04/15/24 11:55 0.625 MG Insulin Human Regular HS SC 04/12/24 22:00 04/14/24 21:33 4 UNITS Insulin Human Regular AC SC 04/12/24 17:00 04/15/24 18:06 6 UNITS Dextrose 50 ml UD PRN IV 04/12/24 15:45 Tamsulosin HCl 0.4 mg QPM PO 04/12/24 18:00 04/15/24 16:50 0.4 MG Metoprolol Succinate 25 mg BID PO 04/13/24 15:30 04/15/24 10:28 25 MG Patient Own Medication 1 gm Q8HR IV 04/14/24 17:30 UNV Hydralazine HCl 10 mg Q6HP PRN IV 04/14/24 17:45 04/14/24 17:54 10 MG Sodium Chloride 1,000 ml @ 60 mls/hr [id number] IV 04/15/24 10:15 04/15/24 11:56 60 MLS/HR Lactulose 30 ml Q8HPRN PO 04/15/24 22:00 Future Hold Docusate Sodium 100 mg BID PO 04/15/24 22:00 Sennosides 17.2 mg HS PO 04/15/24 22:00 objective General: Patient appears alert, comfortable and well-appearing. HEENT: Normocephalic, atraumatic, Sclera anicteric, conjunctiva clear, No nasal discharge or congestion. Mucous membranes moist, no tonsillar erythema or exudates. Neck: No cervical lymphadenopathy or masses. No neck stiffness. Lungs: Breath sounds clear bilaterally, no wheezes, rales, or rhonchi. No use of accessory muscles or respiratory distress. Cardiovascular: Regular rate and rhythm, no murmurs, rubs, or gallops. Abdomen: Soft, non-tender, non-distended. Bowel sounds present in all quadrants. No hepatosplenomegaly or masses. Skin: No rash, petechiae, or ecchymosis. Extremities: No edema, cyanosis, or clubbing. No tenderness to palpation, erythema, or swelling in joints. No signs of deep vein thrombosis (DVT). Neurologic: Patient is alert and oriented to person, place, and time. Cranial nerves II-XII intact. Motor strength 5/5 bilaterally in all extremities. laboratory and microbiology Laboratory Tests 04/15/24 06:12 04/14/24 06:14 Test 04/15/24 06:12 Range/Units Serum Glucose 135 H 74-106 mg/dL Assessment/Plan P78 yo male with known history of COPD, CKD, hypertension, DM2 , Atrial fibrillation, Lung transplant, hypertension presents with syncopal episode. Patient found to have UTI Afib with RVR hypotension h/o lung transplant recommendations IV meropenem follow sensitivity blood cx prelim neg cont immunosuppressive meds 04/14, Renal US showed: Decreased bilateral renal cortical thickness and increased echogenicity concerning for medical renal disease. 7 cm mass along the base of the urinary bladder. Consider further evaluation with cystoscopy and biopsy. 04/11, Head CT: No acute intracranial abnormality. 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 Small right and trace left pleural effusions. Scattered areas of scarring in both lungs. Persistent slight mass effect upon the right heart by the inflated right lung. Coronary artery calcifications up to moderate in the left anterior descending artery. Healing moderate to marked compression fracture of L1. Thank you for consult. Dietary Evaluation Review Comments: 1) Consider a Renal Specific K2,low phos 2gmNa, 60gPro/CCHO diet 2) Continue current plan of care Expected Outcomes/Goals: F/U in 3-5 days Plan discussed with: Other CC Plasma Assessment Blood Product Administration S: [id number] MARTA ALBARRAN MD Apr 15, 2024 18:43
[2024-04-15] MEDS ORDERED: LACTULOSE 20Gm/30ML SOLN PO SCH (22:00)
[2024-04-15] MEDS: SENNA 8.6 MG TAB PO SCH (22:14)
[2024-04-15] MEDS: DOCUSATE SOD 100 MG CAP PO SCH (22:15)
[2024-04-16] VITALS (18 sets, daily range): BP systolic 119–151; BP diastolic 68–83; PULSE 75–125; RESP 18–22; TEMP 98.6–102.3; O2SAT 90–100
[2024-04-16 07:02] LABS: Eosinophils # (auto) 0 10 ^3/uL (0-0.8); Lymphocytes # (auto) 0.9 10 ^3/uL (0.4-5.4); Monocytes # (auto) 0.6 10 ^3/uL (0-1.3); Neutrophils # (auto) 4.4 10 ^3/uL (1.6-8.6)
[2024-04-16 07:05] LABS: Chloride 106 mmol/L (98-107); Potassium 4.8 mmol/L (3.5-5.1); Sodium 140 mmol/L (136-145)
[2024-04-16 07:06] LABS: Anion Gap 10 (5-15); Carbon Dioxide 24 mmol/L (20-31)
[2024-04-16 07:07] LABS: Basophils # (auto) 0 10 ^3/uL (0-0.2); Basophils % (auto) 0.7 % (0.0-2.0); Eosinophils % (auto) 0.6 % (0.0-7.0); Hematocrit 28.8 % (41.0-53.0); Hemoglobin 9.2 g/dL (13.5-17.5); Lymphocytes % (auto) 15.5 % (10.0-50.0); Mean Corpuscular Hemoglobin 21.9 pg (28.0-32.0); Mean Corpuscular Volume 68.6 fL (80.0-100.0); Monocytes % (auto) 10.1 % (0.0-12.0); Neutrophils % (auto) 73.1 % (37.0-80.0); Nucleated Red Blood Cells % 0.1 %; Platelet Count (auto) 143 10^3/uL (140-450); Red Blood Cells 4.19 10^6/uL (4.5-5.90); White Blood Cell 6.1 10^3/uL (4.4-10.8)
[2024-04-16 07:11] LABS: BUN/Creatinine Ratio 11.9 (10.0-20.0)
[2024-04-16 07:12] LABS: Blood Urea Nitrogen 34 mg/dL (9-23); Glucose 135 mg/dL (74-106)
[2024-04-16 08:28] LABS: Anisocytosis Moderate; Hypochromia Slight
[2024-04-16 08:29] LABS: Platelet Estimate Adequate
--- NOTE | 2024-04-16 13:10 | DVHOP2 ---
Operative Report - 2 Report Details Date: 04/16/24 Preop Diagnosis: Urinary outlet obstruction Bladder mass Postop Diagnosis: Urethral stricture disease Surgeon: Comfort Conteh Anesthesiologist: Bedside cystoscopy without anesthesiologist Anesthesia: Local Consent: The patient was informed of the risks and benefits of the procedure. These include but are not limited to complications of anesthesia, postoperative infection, incomplete relief of symptoms, recurrence of symptoms, damage to blood vessels, nerves and tendons, deep venous thrombosis, pulmonary embolism and possible need for repeat surgery in the future. Indications for Surgery: Bladder mass reported on ultrasound Name of Procedure Performed Diagnostic Cystoscopy attempted Procedure Details Procedure Details: Patient was consented for a diagnostic cystoscopy. With the patient in the supine position at the bedside, genitalia was prepped and draped in usual sterile manner. Lidocaine gel was applied to the penile urethra. Flexible digital cystoscope was used to access the urethra. There was a proximal urethral stricture which I attempted to dilate with the cystoscope, but the patient could not tolerate the pain and the procedure was terminated. Patient will be consented for a diagnostic cystoscopy with urethral calibration and possible TURBT under anesthesia tomorrow. Specimen: None Condition Fair Disposition COMFORT CONTEH MD Apr 16, 2024 13:10
--- NOTE | 2024-04-16 15:42 | DVHPN2 ---
Progress Note Date Seen: Apr 16, 2024 Medical Necessity Reason Pt with a Central, PICC or Fol: Yes The following are medically ne: Negrete Catheter Subjective Review of Systems: HEENT:Normal, CVS:Normal, RESPIRATORY:Normal, GI:Normal, :Normal, MSK:Normal, NEURO:Normal Objective vital signs Vital Sign Date Time Temp Pulse Resp B/P (MAP) Pulse Ox O2 Delivery O2 Flow Rate FiO2 04/16/24 13:32 110 18 04/16/24 13:29 95 04/16/24 13:00 99.9 136/76 (96) 99.9 04/16/24 10:30 Nasal Cannula* 2 28 Total Intake and Output 04/15/24 04/15/24 04/16/24 15:00 23:00 07:00 Intake Total 500 ml 500 ml Output Total 1100 ml 200 ml Balance -600 ml 300 ml medications Current Medications Medications Dose Ordered Sig/Anish Route Start Time Stop Time Status Last Admin Dose Admin Metoprolol Tartrate 2.5 mg Q6HPRN PRN IV 04/12/24 00:45 04/15/24 02:24 2.5 MG Amiodarone HCl 250 ml @ 16.667 mls/ hr Q15H IV 04/12/24 07:30 04/16/24 14:29 16.667 MLS/HR Ondansetron HCl 4 mg Q6HPRN PRN IV 04/12/24 01:45 04/12/24 18:21 4 MG Morphine Sulfate 2 mg Q6HPRN PRN IV 04/12/24 01:45 04/12/24 18:22 2 MG Pantoprazole Sodium 40 mg DAILY IV 04/12/24 10:00 04/16/24 10:36 40 MG Acetaminophen 650 mg Q6HPRN PRN PO 04/12/24 01:45 04/15/24 22:14 650 MG Acetaminophen/ Hydrocodone Bitart 1 tab Q6HPRN PRN PO 04/12/24 01:45 04/12/24 10:47 1 TAB Diagnostic Test (Pha) 1 strip ACHS 04/12/24 07:00 04/16/24 12:42 1 STRIP Levalbuterol HCl 0.625 mg Q6HR NEB 04/12/24 06:00 04/16/24 13:28 0.625 MG Insulin Human Regular HS SC 04/12/24 22:00 04/14/24 21:33 4 UNITS Insulin Human Regular AC SC 04/12/24 17:00 04/16/24 13:01 3 UNITS Dextrose 50 ml UD PRN IV 04/12/24 15:45 Tamsulosin HCl 0.4 mg QPM PO 04/12/24 18:00 04/15/24 16:50 0.4 MG Metoprolol Succinate 25 mg BID PO 04/13/24 15:30 04/16/24 10:35 25 MG Patient Own Medication 1 gm Q8HR IV 04/14/24 17:30 UNV Hydralazine HCl 10 mg Q6HP PRN IV 04/14/24 17:45 04/14/24 17:54 10 MG Sodium Chloride 1,000 ml @ 60 mls/hr [id number] IV 04/15/24 10:15 04/16/24 10:52 60 MLS/HR Lactulose 30 ml Q8HPRN PO 04/15/24 22:00 Hold Docusate Sodium 100 mg BID PO 04/15/24 22:00 04/16/24 10:35 100 MG Sennosides 17.2 mg HS PO 04/15/24 22:00 04/15/24 22:14 17.2 MG Examination: GENERAL:Normal, HEENT:Normal, NECK:Normal, LUNGS:Normal, CVS:Normal, ABDOMEN:Normal, MSK:Normal, SKIN:Normal, NEURO:Normal, :Normal laboratory and microbiology Laboratory Tests 04/16/24 05:42 Test 04/16/24 05:42 Range/Units Serum Glucose 135 H 74-106 mg/dL Microbiology Date/Time Source Procedure Growth Status 04/14/24 23:25 Catheter Site Gram Stain Pending Resulted 04/14/24 23:25 Catheter Site Wound Culture - Preliminary Resulted 04/14/24 16:41 Blood Blood Culture - Preliminary NO GROWTH AFTER 24 HOURS OF INCUBATION. Resulted 04/11/24 20:45 Voided Urine Urine Culture - Final Escherichia coli - ESBL Complete Problem List/Assessment/Plan Problem List/Assessment/Plan DAX on CKD stage IV likely hemodynamically mediated in setting of sepsis Bladder mass 7 cm Sepsis due to UTI/ESBL Atrial fibrillation with RVR Syncopal episode Hypotension Recommendations Urology planning for cystoscopy and transurethral resection of bladder mass Continue gentle IV fluids Kidney function stable Plan discussed with: Patient Dietary Evaluation Review Comments: 1) Consider a Renal Specific K2,low phos 2gmNa, 60gPro/CCHO diet 2) Continue current plan of care Expected Outcomes/Goals: F/U in 3-5 days CC Plasma Assessment Blood Product Administration S: [id number] BRENDEN SINGH MD Apr 16, 2024 15:42
--- NOTE | 2024-04-16 16:46 | DVHPN2 ---
Subjective OVERNIGHT EVENTS NOTED PATIENT IS STILL ON AMIODARONE DRIP, patient was found to have urinary bladder mass on renal ultrasound status post bedside cystoscopy had to be terminated because of patient was currently tolerated the pain and procedure. 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 Medications Current Medications Medications Dose Ordered Sig/Anish Route Start Time Stop Time Status Last Admin Dose Admin Metoprolol Tartrate 2.5 mg Q6HPRN PRN IV 04/12/24 00:45 04/15/24 02:24 2.5 MG Amiodarone HCl 250 ml @ 16.667 mls/ hr Q15H IV 04/12/24 07:30 04/16/24 14:29 16.667 MLS/HR Ondansetron HCl 4 mg Q6HPRN PRN IV 04/12/24 01:45 04/12/24 18:21 4 MG Morphine Sulfate 2 mg Q6HPRN PRN IV 04/12/24 01:45 04/12/24 18:22 2 MG Pantoprazole Sodium 40 mg DAILY IV 04/12/24 10:00 04/16/24 10:36 40 MG Acetaminophen 650 mg Q6HPRN PRN PO 04/12/24 01:45 04/15/24 22:14 650 MG Acetaminophen/ Hydrocodone Bitart 1 tab Q6HPRN PRN PO 04/12/24 01:45 04/12/24 10:47 1 TAB Diagnostic Test (Pha) 1 strip ACHS 04/12/24 07:00 04/16/24 12:42 1 STRIP Levalbuterol HCl 0.625 mg Q6HR NEB 04/12/24 06:00 04/16/24 13:28 0.625 MG Insulin Human Regular HS SC 04/12/24 22:00 04/14/24 21:33 4 UNITS Insulin Human Regular AC SC 04/12/24 17:00 04/16/24 13:01 3 UNITS Dextrose 50 ml UD PRN IV 04/12/24 15:45 Tamsulosin HCl 0.4 mg QPM PO 04/12/24 18:00 04/15/24 16:50 0.4 MG Metoprolol Succinate 25 mg BID PO 04/13/24 15:30 04/16/24 10:35 25 MG Patient Own Medication 1 gm Q8HR IV 04/14/24 17:30 UNV Hydralazine HCl 10 mg Q6HP PRN IV 04/14/24 17:45 04/14/24 17:54 10 MG Sodium Chloride 1,000 ml @ 60 mls/hr [id number] IV 04/15/24 10:15 04/16/24 10:52 60 MLS/HR Lactulose 30 ml Q8HPRN PO 04/15/24 22:00 Hold Docusate Sodium 100 mg BID PO 04/15/24 22:00 04/16/24 10:35 100 MG Sennosides 17.2 mg HS PO 04/15/24 22:00 04/15/24 22:14 17.2 MG Laboratory Results Laboratory Tests 04/16/24 05:42 Chemistry Test 04/16/24 05:42 Calcium Level 9.0 mg/dL (8.7-10.4) Urinalysis Test 04/11/24 20:45 04/15/24 10:30 Urine Color Yellow (Yellow) Urine Clarity Turbid (Clear) H Urine pH 5.5 (5.0-9.0) Urine Specific [place] 1.014 (1.001-1.035) Urine Protein 1+ (Negative) H Urine Ketones Negative (Negative) Urine Blood 1+ /uL (Negative) H Urine Nitrite Negative (Negative) Urine Bilirubin Negative (Negative) Urine Urobilinogen Normal mg/dL (Negative) Urine Leukocyte Esterase 3+ /uL (Negative) Urine RBC 8 /hpf (0 - 3) Urine WBC 439 /hpf (0 - 3) Urine WBC Clumps Present /hpf (None Seen) Urine Squamous Epithelial Cells Few /hpf (<5) Urine Bacteria Few /hpf (None Seen) H Urine Glucose 2+ mg/dL (Normal) H Urine Creatinine 94.09 mg/dL (30.0-125.0) Urine Protein/Creatinine Ratio 2.30 Urine Sodium 64 mmol/L (40-220) Urine Total Protein 216.7 mg/dL (1-14) H Microbiology Microbiology Date/Time Source Procedure Growth Status 04/14/24 23:25 Catheter Site Gram Stain Pending Resulted 04/14/24 23:25 Catheter Site Wound Culture - Preliminary Resulted 04/14/24 16:41 Blood Blood Culture - Preliminary NO GROWTH AFTER 24 HOURS OF INCUBATION. Resulted 04/11/24 20:45 Voided Urine Urine Culture - Final Escherichia coli - ESBL Complete Assessment/Plan Assessment/Plan 78 yo male with known history of COPD, CKD, hypertension, DM2 , Atrial fibrillation, Lung transplant, hypertension presents with syncopal episode. Patient found to have 1. AFib with RVR currently on amiodarone drip 2. Acute kidney injury suspected secondary to vasomotor nephropathy with the underlying CKD 3. GRAM-NEGATIVE UTI with a ESBL 4. Syncope 5. Anemia 6. COPD 7. Status post lung transplant 8. Urinary bladder mass status post bedside cystoscopy has to be terminated, currently scheduled for cystoscopy and TURBT. -urology consult appreciated -blood cultures x2 are negative -continue meropenem, Infectious Disease consultation -continue METOPROLOL, continue amiodarone drip, follow up Cardiology recommendations. Plan discussed with: Patient Date of Service: Apr 16, 2024 Billing Provider: SANDY HEWITT MD Common Visit Codes: NOT BILLABLE SANDY HEWITT MD Apr 16, 2024 16:46
--- NOTE | 2024-04-16 16:57 | DVHPN2 ---
Progress Note - Dictate Date Seen: Apr 16, 2024 Medical Necessity Reason Pt with a Central, PICC or Fol: Yes The following are medically ne: Negrete Catheter Subjective Patient's is still on Amiodarone drip. Patient was found to have urinary bladder mass on renal ultrasound S/P bedside cystoscopy. Had to be terminated because patient didn't tolerate the pain and procedure. Procedure will reattempt tomorrow. vital signs Vital Sign Date Time Temp Pulse Resp B/P (MAP) Pulse Ox O2 Delivery O2 Flow Rate FiO2 04/16/24 13:32 110 18 04/16/24 13:29 95 04/16/24 13:00 99.9 136/76 (96) 99.9 04/16/24 10:30 Nasal Cannula* 2 28 Total Intake and Output 04/15/24 04/15/24 04/16/24 15:00 23:00 07:00 Intake Total 500 ml 500 ml Output Total 1100 ml 200 ml Balance -600 ml 300 ml medications Current Medications Medications Dose Ordered Sig/Anish Route Start Time Stop Time Status Last Admin Dose Admin Metoprolol Tartrate 2.5 mg Q6HPRN PRN IV 04/12/24 00:45 04/15/24 02:24 2.5 MG Amiodarone HCl 250 ml @ 16.667 mls/ hr Q15H IV 04/12/24 07:30 04/16/24 14:29 16.667 MLS/HR Ondansetron HCl 4 mg Q6HPRN PRN IV 04/12/24 01:45 04/12/24 18:21 4 MG Morphine Sulfate 2 mg Q6HPRN PRN IV 04/12/24 01:45 04/12/24 18:22 2 MG Pantoprazole Sodium 40 mg DAILY IV 04/12/24 10:00 04/16/24 10:36 40 MG Acetaminophen 650 mg Q6HPRN PRN PO 04/12/24 01:45 04/15/24 22:14 650 MG Acetaminophen/ Hydrocodone Bitart 1 tab Q6HPRN PRN PO 04/12/24 01:45 04/12/24 10:47 1 TAB Diagnostic Test (Pha) 1 strip ACHS 04/12/24 07:00 04/16/24 12:42 1 STRIP Levalbuterol HCl 0.625 mg Q6HR NEB 04/12/24 06:00 04/16/24 13:28 0.625 MG Insulin Human Regular HS SC 04/12/24 22:00 04/14/24 21:33 4 UNITS Insulin Human Regular AC SC 04/12/24 17:00 04/16/24 13:01 3 UNITS Dextrose 50 ml UD PRN IV 04/12/24 15:45 Tamsulosin HCl 0.4 mg QPM PO 04/12/24 18:00 04/15/24 16:50 0.4 MG Metoprolol Succinate 25 mg BID PO 04/13/24 15:30 04/16/24 10:35 25 MG Patient Own Medication 1 gm Q8HR IV 04/14/24 17:30 UNV Hydralazine HCl 10 mg Q6HP PRN IV 04/14/24 17:45 04/14/24 17:54 10 MG Sodium Chloride 1,000 ml @ 60 mls/hr [id number] IV 04/15/24 10:15 04/16/24 10:52 60 MLS/HR Lactulose 30 ml Q8HPRN PO 04/15/24 22:00 Hold Docusate Sodium 100 mg BID PO 04/15/24 22:00 04/16/24 10:35 100 MG Sennosides 17.2 mg HS PO 04/15/24 22:00 04/15/24 22:14 17.2 MG objective General: Patient appears alert, comfortable and well-appearing. HEENT: Normocephalic, atraumatic, Sclera anicteric, conjunctiva clear, No nasal discharge or congestion. Mucous membranes moist, no tonsillar erythema or exudates. Neck: No cervical lymphadenopathy or masses. No neck stiffness. Lungs: Breath sounds clear bilaterally, no wheezes, rales, or rhonchi. No use of accessory muscles or respiratory distress. Cardiovascular: Regular rate and rhythm, no murmurs, rubs, or gallops. Abdomen: Soft, non-tender, non-distended. Bowel sounds present in all quadrants. No hepatosplenomegaly or masses. Skin: No rash, petechiae, or ecchymosis. Extremities: No edema, cyanosis, or clubbing. No tenderness to palpation, erythema, or swelling in joints. No signs of deep vein thrombosis (DVT). Neurologic: Patient is alert and oriented to person, place, and time. Cranial nerves II-XII intact. Motor strength 5/5 bilaterally in all extremities. laboratory and microbiology Laboratory Tests 04/16/24 05:42 Test 04/16/24 05:42 Range/Units Serum Glucose 135 H 74-106 mg/dL Assessment/Plan Patient is a 78-year-old male presents with syncopal episode. Patient found to have UTI due to Klebsiella ESBL Bladder mass Atrial fibrillation with RVR Acute anemia Acute on chronic kidney injury Hypoglycemia Hypotension Syncope Lung transplant Recommendations: cont IV Meropenem Midline 04/11, Patient's urine culture came back ESBL positive. 04/14, Blood culture: No growth monitored. 04/14, Wound culture: Pending. 04/14, Renal US showed: Decreased bilateral renal cortical thickness and increased echogenicity concerning for medical renal disease. 7 cm mass along the base of the urinary bladder. Consider further evaluation with cystoscopy and biopsy. Plan for cystoscopy today by urology. 04/11, Chest CT: Scattered areas of scarring in both lungs. Thank you for opportunity to take care of this patient. Dietary Evaluation Review Comments: 1) Consider a Renal Specific K2,low phos 2gmNa, 60gPro/CCHO diet 2) Continue current plan of care Expected Outcomes/Goals: F/U in 3-5 days Plan discussed with: Other CC Plasma Assessment Blood Product Administration S: [id number] MARTA ALBARRAN MD Apr 16, 2024 16:57
[2024-04-17] VITALS (18 sets, daily range): BP systolic 112–146; BP diastolic 67–74; PULSE 65–122; RESP 14–22; TEMP 98.3–99.1; O2SAT 92–100
[2024-04-17 07:09] LABS: Chloride 107 mmol/L (98-107); Potassium 4.5 mmol/L (3.5-5.1); Sodium 142 mmol/L (136-145)
[2024-04-17 07:10] LABS: Anion Gap 13 (5-15); Calcium 8.7 mg/dL (8.7-10.4); Carbon Dioxide 22 mmol/L (20-31)
[2024-04-17 07:15] LABS: BUN/Creatinine Ratio 12.7 (10.0-20.0)
[2024-04-17 07:21] LABS: Blood Urea Nitrogen 31 mg/dL (9-23); Glucose 175 mg/dL (74-106)
--- NOTE | 2024-04-17 09:45 | DVHPN2 ---
Progress Note - Dictate Date Seen: Apr 17, 2024 Medical Necessity Reason Pt with a Central, PICC or Fol: No The following are medically ne: Negrete Catheter Subjective had cysto yesterday vital signs Vital Sign Date Time Temp Pulse Resp B/P (MAP) Pulse Ox O2 Delivery O2 Flow Rate FiO2 04/17/24 07:13 111 20 99 04/17/24 07:07 Nasal Cannula 2.0 04/17/24 07:07 28 04/17/24 05:00 98.3 122/73 (89) 98.3 Total Intake and Output 04/16/24 04/16/24 04/17/24 15:00 23:00 07:00 Intake Total 150 ml 480 ml Output Total 500 ml 4 ml Balance -350 ml 476 ml medications Current Medications Medications Dose Ordered Sig/Anish Route Start Time Stop Time Status Last Admin Dose Admin Metoprolol Tartrate 2.5 mg Q6HPRN PRN IV 04/12/24 00:45 04/15/24 02:24 2.5 MG Amiodarone HCl 250 ml @ 16.667 mls/ hr Q15H IV 04/12/24 07:30 04/17/24 06:40 16.667 MLS/HR Ondansetron HCl 4 mg Q6HPRN PRN IV 04/12/24 01:45 04/12/24 18:21 4 MG Morphine Sulfate 2 mg Q6HPRN PRN IV 04/12/24 01:45 04/12/24 18:22 2 MG Pantoprazole Sodium 40 mg DAILY IV 04/12/24 10:00 04/16/24 10:36 40 MG Acetaminophen 650 mg Q6HPRN PRN PO 04/12/24 01:45 04/16/24 21:21 650 MG Acetaminophen/ Hydrocodone Bitart 1 tab Q6HPRN PRN PO 04/12/24 01:45 04/12/24 10:47 1 TAB Diagnostic Test (Pha) 1 strip ACHS 04/12/24 07:00 04/17/24 06:23 1 STRIP Levalbuterol HCl 0.625 mg Q6HR NEB 04/12/24 06:00 04/17/24 07:07 0.625 MG Insulin Human Regular HS SC 04/12/24 22:00 04/14/24 21:33 4 UNITS Insulin Human Regular AC SC 04/12/24 17:00 04/17/24 06:51 3 UNITS Dextrose 50 ml UD PRN IV 04/12/24 15:45 Tamsulosin HCl 0.4 mg QPM PO 04/12/24 18:00 04/16/24 17:03 0.4 MG Metoprolol Succinate 25 mg BID PO 04/13/24 15:30 04/16/24 21:22 25 MG Patient Own Medication 1 gm Q8HR IV 04/14/24 17:30 UNV Hydralazine HCl 10 mg Q6HP PRN IV 04/14/24 17:45 04/14/24 17:54 10 MG Sodium Chloride 1,000 ml @ 60 mls/hr [id number] IV 04/15/24 10:15 04/16/24 10:52 60 MLS/HR Lactulose 30 ml Q8HPRN PO 04/15/24 22:00 Hold Docusate Sodium 100 mg BID PO 04/15/24 22:00 04/16/24 21:21 100 MG Sennosides 17.2 mg HS PO 04/15/24 22:00 04/16/24 21:21 17.2 MG objective GENERAL:Normal, HEENT:Normal, NECK:Normal, LUNGS:Normal, CVS:Normal, ABDOMEN:Normal, MSK:Normal, SKIN:Normal, NEURO:Normal, :Abnormal laboratory and microbiology Laboratory Tests 04/17/24 06:33 04/16/24 05:42 Test 04/17/24 06:33 Range/Units Serum Glucose 175 H 74-106 mg/dL Assessment/Plan DAX on CKD stage IV likely hemodynamically mediated in setting of sepsis Bladder mass 7 cm Sepsis due to UTI/ESBL Atrial fibrillation with RVR Syncopal episode Hypotension Recommendations Urology planning TURBT Continue gentle IV fluids Kidney function improving, no new recommendations at this time Dietary Evaluation Review Comments: 1) Consider a Renal Specific K2,low phos 2gmNa, 60gPro/CCHO diet 2) Continue current plan of care Expected Outcomes/Goals: F/U in 3-5 days Plan discussed with: Patient CC Plasma Assessment Blood Product Administration S: [id number] ALEISHA SHAVER MD Apr 17, 2024 09:45
--- NOTE | 2024-04-17 12:42 | DVHPN2 ---
Progress Note - Dictate Date Seen: Apr 17, 2024 Medical Necessity Reason Pt with a Central, PICC or Fol: No The following are medically ne: Negrete Catheter Subjective Patient's is still on Amiodarone drip. Patient was found to have urinary bladder mass on renal ultrasound ; planned for bedside cystoscopy. Had to be terminated because patient didn't tolerate the pain and procedure. Procedure will reattempt today under anesthesia vital signs Vital Sign Date Time Temp Pulse Resp B/P (MAP) Pulse Ox O2 Delivery O2 Flow Rate FiO2 04/17/24 11:55 111 16 98 04/17/24 11:49 Nasal Cannula 2.0 04/17/24 11:49 28 04/17/24 10:21 112/74 04/17/24 09:00 98.8 98.8 Total Intake and Output 04/16/24 04/16/24 04/17/24 15:00 23:00 07:00 Intake Total 150 ml 480 ml Output Total 500 ml 4 ml Balance -350 ml 476 ml medications Current Medications Medications Dose Ordered Sig/Anish Route Start Time Stop Time Status Last Admin Dose Admin Metoprolol Tartrate 2.5 mg Q6HPRN PRN IV 04/12/24 00:45 04/15/24 02:24 2.5 MG Amiodarone HCl 250 ml @ 16.667 mls/ hr Q15H IV 04/12/24 07:30 04/17/24 06:40 16.667 MLS/HR Ondansetron HCl 4 mg Q6HPRN PRN IV 04/12/24 01:45 04/12/24 18:21 4 MG Morphine Sulfate 2 mg Q6HPRN PRN IV 04/12/24 01:45 04/12/24 18:22 2 MG Pantoprazole Sodium 40 mg DAILY IV 04/12/24 10:00 04/17/24 10:21 40 MG Acetaminophen 650 mg Q6HPRN PRN PO 04/12/24 01:45 04/16/24 21:21 650 MG Acetaminophen/ Hydrocodone Bitart 1 tab Q6HPRN PRN PO 04/12/24 01:45 04/12/24 10:47 1 TAB Diagnostic Test (Pha) 1 strip ACHS 04/12/24 07:00 04/17/24 12:06 1 STRIP Levalbuterol HCl 0.625 mg Q6HR NEB 04/12/24 06:00 04/17/24 11:49 0.625 MG Insulin Human Regular HS SC 04/12/24 22:00 04/14/24 21:33 4 UNITS Insulin Human Regular AC SC 04/12/24 17:00 04/17/24 06:51 3 UNITS Dextrose 50 ml UD PRN IV 04/12/24 15:45 Tamsulosin HCl 0.4 mg QPM PO 04/12/24 18:00 04/16/24 17:03 0.4 MG Metoprolol Succinate 25 mg BID PO 04/13/24 15:30 04/17/24 10:21 25 MG Patient Own Medication 1 gm Q8HR IV 04/14/24 17:30 UNV Hydralazine HCl 10 mg Q6HP PRN IV 04/14/24 17:45 04/14/24 17:54 10 MG Sodium Chloride 1,000 ml @ 60 mls/hr [id number] IV 04/15/24 10:15 04/16/24 10:52 60 MLS/HR Lactulose 30 ml Q8HPRN PO 04/15/24 22:00 Hold Docusate Sodium 100 mg BID PO 04/15/24 22:00 04/17/24 10:21 100 MG Sennosides 17.2 mg HS PO 04/15/24 22:00 04/16/24 21:21 17.2 MG Meropenem 250 ml @ 83.3 mls/hr Q12HR IV 04/17/24 22:00 UNV objective General: Patient appears alert, comfortable and well-appearing. HEENT: Normocephalic, atraumatic, Sclera anicteric, conjunctiva clear, No nasal discharge or congestion. Mucous membranes moist, no tonsillar erythema or exudates. Neck: No cervical lymphadenopathy or masses. No neck stiffness. Lungs: Breath sounds clear bilaterally, no wheezes, rales, or rhonchi. No use of accessory muscles or respiratory distress. Cardiovascular: Regular rate and rhythm, no murmurs, rubs, or gallops. Abdomen: Soft, non-tender, non-distended. Bowel sounds present in all quadrants. No hepatosplenomegaly or masses. Skin: No rash, petechiae, or ecchymosis. Extremities: No edema, cyanosis, or clubbing. No tenderness to palpation, erythema, or swelling in joints. No signs of deep vein thrombosis (DVT). Neurologic: Patient is alert and oriented to person, place, and time. Cranial nerves II-XII intact. Motor strength 5/5 bilaterally in all extremities. laboratory and microbiology Laboratory Tests 04/17/24 06:33 04/16/24 05:42 Test 04/17/24 06:33 Range/Units Serum Glucose 175 H 74-106 mg/dL Assessment/Plan Patient is a 78-year-old male presents with syncopal episode. Patient found to have UTI due to Klebsiella ESBL Bladder mass Atrial fibrillation with RVR Acute anemia Acute on chronic kidney injury Hypoglycemia Hypotension Syncope Recommendations: cont IV Meropenem Based on culture sensitivity Midline 04/11, Patient's urine culture came back ESBL positive. 04/14, Blood culture: No growth monitored. 04/14, Wound culture: Pending. 04/14, Renal US showed: Decreased bilateral renal cortical thickness and increased echogenicity concerning for medical renal disease. 7 cm mass along the base of the urinary bladder. Consider further evaluation with cystoscopy and biopsy. Plan for cystoscopy today by urolog under anesthesia today 04/11, Chest CT: Scattered areas of scarring in both lungs. Thank you for opportunity to take care of this patient. Dietary Evaluation Review Comments: 1) Consider a Renal Specific K2,low phos 2gmNa, 60gPro/CCHO diet 2) Continue current plan of care Expected Outcomes/Goals: F/U in 3-5 days Plan discussed with: Patient, Other CC Plasma Assessment Blood Product Administration S: [id number] MARTA ALBARRAN MD Apr 17, 2024 12:42
--- NOTE | 2024-04-17 15:46 | DVHPN2 ---
Subjective OVERNIGHT EVENTS NOTED PATIENT IS STILL ON AMIODARONE DRIP, patient was found to have urinary bladder mass on renal ultrasound status post bedside cystoscopy had to be terminated because of patient was currently tolerated the pain and procedure. Today patient has refused urological procedure. We will DC the amiodarone drip we will switch to p.o. amiodarone. 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 Medications Current Medications Medications Dose Ordered Sig/Anish Route Start Time Stop Time Status Last Admin Dose Admin Metoprolol Tartrate 2.5 mg Q6HPRN PRN IV 04/12/24 00:45 04/15/24 02:24 2.5 MG Ondansetron HCl 4 mg Q6HPRN PRN IV 04/12/24 01:45 04/12/24 18:21 4 MG Morphine Sulfate 2 mg Q6HPRN PRN IV 04/12/24 01:45 04/12/24 18:22 2 MG Pantoprazole Sodium 40 mg DAILY IV 04/12/24 10:00 04/17/24 10:21 40 MG Acetaminophen 650 mg Q6HPRN PRN PO 04/12/24 01:45 04/16/24 21:21 650 MG Acetaminophen/ Hydrocodone Bitart 1 tab Q6HPRN PRN PO 04/12/24 01:45 04/12/24 10:47 1 TAB Diagnostic Test (Pha) 1 strip ACHS 04/12/24 07:00 04/17/24 12:06 1 STRIP Levalbuterol HCl 0.625 mg Q6HR NEB 04/12/24 06:00 04/17/24 11:49 0.625 MG Insulin Human Regular HS SC 04/12/24 22:00 04/14/24 21:33 4 UNITS Insulin Human Regular AC SC 04/12/24 17:00 04/17/24 06:51 3 UNITS Dextrose 50 ml UD PRN IV 04/12/24 15:45 Tamsulosin HCl 0.4 mg QPM PO 04/12/24 18:00 04/16/24 17:03 0.4 MG Metoprolol Succinate 25 mg BID PO 04/13/24 15:30 04/17/24 10:21 25 MG Patient Own Medication 1 gm Q8HR IV 04/14/24 17:30 UNV Hydralazine HCl 10 mg Q6HP PRN IV 04/14/24 17:45 04/14/24 17:54 10 MG Sodium Chloride 1,000 ml @ 60 mls/hr [id number] IV 04/15/24 10:15 04/16/24 10:52 60 MLS/HR Lactulose 30 ml Q8HPRN PO 04/15/24 22:00 Hold Docusate Sodium 100 mg BID PO 04/15/24 22:00 04/17/24 10:21 100 MG Sennosides 17.2 mg HS PO 04/15/24 22:00 04/16/24 21:21 17.2 MG Meropenem 250 ml @ 83.3 mls/hr Q12HR IV 04/17/24 22:00 UNV Amiodarone HCl 200 mg Q12HR PO 04/17/24 22:00 UNV Laboratory Results Laboratory Tests 04/16/24 05:42 04/17/24 06:33 Chemistry Test 04/17/24 06:33 Calcium Level 8.7 mg/dL (8.7-10.4) Urinalysis Test 04/11/24 20:45 04/15/24 10:30 Urine Color Yellow (Yellow) Urine Clarity Turbid (Clear) H Urine pH 5.5 (5.0-9.0) Urine Specific [place] 1.014 (1.001-1.035) Urine Protein 1+ (Negative) H Urine Ketones Negative (Negative) Urine Blood 1+ /uL (Negative) H Urine Nitrite Negative (Negative) Urine Bilirubin Negative (Negative) Urine Urobilinogen Normal mg/dL (Negative) Urine Leukocyte Esterase 3+ /uL (Negative) Urine RBC 8 /hpf (0 - 3) Urine WBC 439 /hpf (0 - 3) Urine WBC Clumps Present /hpf (None Seen) Urine Squamous Epithelial Cells Few /hpf (<5) Urine Bacteria Few /hpf (None Seen) H Urine Glucose 2+ mg/dL (Normal) H Urine Creatinine 94.09 mg/dL (30.0-125.0) Urine Protein/Creatinine Ratio 2.30 Urine Sodium 64 mmol/L (40-220) Urine Total Protein 216.7 mg/dL (1-14) H Microbiology Microbiology Date/Time Source Procedure Growth Status 04/14/24 23:25 Catheter Site Gram Stain - Final Resulted 04/14/24 23:25 Catheter Site Wound Culture - Preliminary Resulted 04/14/24 16:41 Blood Blood Culture - Preliminary NO GROWTH AFTER 48 HOURS OF INCUBATION. Resulted 04/11/24 20:45 Voided Urine Urine Culture - Final Escherichia coli - ESBL Complete Assessment/Plan Assessment/Plan 78 yo male with known history of COPD, CKD, hypertension, DM2 , Atrial fibrillation, Lung transplant, hypertension presents with syncopal episode. Patient found to have 1. AFib with RVR, DC the amiodarone drip, switched to p.o. amiodarone 2. Acute kidney injury suspected secondary to vasomotor nephropathy with the underlying CKD 3. GRAM-NEGATIVE UTI with a ESBL 4. Syncope 5. Anemia 6. COPD 7. Status post lung transplant 8. Urinary bladder mass status post bedside cystoscopy has to be terminated, currently scheduled for cystoscopy and TURBT. -urology consult appreciated, patient refused cystoscopy -blood cultures x2 are negative -continue meropenem, Infectious Disease consultation -continue METOPROLOL, continue amiodarone drip, follow up Cardiology recommendations. Plan discussed with: Patient My Orders Orders - SANDY HEWITT MD Procedure Category Date Status Time Pt Request For Service PT 04/17/24 Logged 14:48 Amiodarone Tablet PHA 04/17/24 Logged (Cordarone Tablet) 15:15 Amiodarone Tablet PHA 04/17/24 Logged (Cordarone Tablet) 22:00 Date of Service: Apr 17, 2024 Billing Provider: SANDY HEWITT MD Common Visit Codes: NOT BILLABLE SANDY HEWITT MD Apr 17, 2024 15:46
[2024-04-17] MEDS: AMIODARONE HCL 200 MG TAB PO ONE (16:45)
--- NOTE | 2024-04-17 18:55 | DVHPN2 ---
Progress Note - Dictate Date Seen: Apr 17, 2024 Medical Necessity Reason Pt with a Central, PICC or Fol: No Medical Necessity Reason Bladder mass Difficulty with urination BPH Subjective Patient has refused to proceed with cystoscopy with possible TURBT under anesthesia vital signs Vital Sign Date Time Temp Pulse Resp B/P (MAP) Pulse Ox O2 Delivery O2 Flow Rate FiO2 04/17/24 17:00 99.1 111 22 115/71 (86) 97 99.1 04/17/24 11:49 Nasal Cannula 2.0 04/17/24 11:49 28 Total Intake and Output 04/16/24 04/16/24 04/17/24 15:00 23:00 07:00 Intake Total 150 ml 480 ml Output Total 500 ml 4 ml Balance -350 ml 476 ml medications Current Medications Medications Dose Ordered Sig/Anish Route Start Time Stop Time Status Last Admin Dose Admin Metoprolol Tartrate 2.5 mg Q6HPRN PRN IV 04/12/24 00:45 04/15/24 02:24 2.5 MG Ondansetron HCl 4 mg Q6HPRN PRN IV 04/12/24 01:45 04/12/24 18:21 4 MG Morphine Sulfate 2 mg Q6HPRN PRN IV 04/12/24 01:45 04/12/24 18:22 2 MG Pantoprazole Sodium 40 mg DAILY IV 04/12/24 10:00 04/17/24 10:21 40 MG Acetaminophen 650 mg Q6HPRN PRN PO 04/12/24 01:45 04/16/24 21:21 650 MG Acetaminophen/ Hydrocodone Bitart 1 tab Q6HPRN PRN PO 04/12/24 01:45 04/12/24 10:47 1 TAB Diagnostic Test (Pha) 1 strip ACHS 04/12/24 07:00 04/17/24 16:43 1 STRIP Levalbuterol HCl 0.625 mg Q6HR NEB 04/12/24 06:00 04/17/24 11:49 0.625 MG Insulin Human Regular HS SC 04/12/24 22:00 04/14/24 21:33 4 UNITS Insulin Human Regular AC SC 04/12/24 17:00 04/17/24 16:39 2 UNITS Dextrose 50 ml UD PRN IV 04/12/24 15:45 Tamsulosin HCl 0.4 mg QPM PO 04/12/24 18:00 04/17/24 16:48 0.4 MG Metoprolol Succinate 25 mg BID PO 04/13/24 15:30 04/17/24 10:21 25 MG Patient Own Medication 1 gm Q8HR IV 04/14/24 17:30 UNV Hydralazine HCl 10 mg Q6HP PRN IV 04/14/24 17:45 04/14/24 17:54 10 MG Sodium Chloride 1,000 ml @ 60 mls/hr [id number] IV 04/15/24 10:15 04/17/24 16:39 60 MLS/HR Lactulose 30 ml Q8HPRN PO 04/15/24 22:00 Hold Docusate Sodium 100 mg BID PO 04/15/24 22:00 04/17/24 10:21 100 MG Sennosides 17.2 mg HS PO 04/15/24 22:00 04/16/24 21:21 17.2 MG Amiodarone HCl 200 mg Q12HR PO 04/17/24 22:00 laboratory and microbiology Laboratory Tests 04/17/24 06:33 04/16/24 05:42 Test 04/17/24 06:33 Range/Units Serum Glucose 175 H 74-106 mg/dL Problem List Bladder mass Difficulty with urination Elevated creatinine Assessment/Plan Bladder mass CKD BPH I attempted a local bedside cystoscopy yesterday which she consented to. During the procedure he could not tolerate and cystoscopy was aborted per patient request. Today he is scheduled for cystoscopy with possible bladder tumor resection under anesthesia. Patient refuses to proceed with cystoscopy with possible TURBT under anesthesia. Dietary Evaluation Review Comments: 1) Consider a Renal Specific K2,low phos 2gmNa, 60gPro/CCHO diet 2) Continue current plan of care Expected Outcomes/Goals: F/U in 3-5 days Plan discussed with: Patient CC Plasma Assessment Blood Product Administration S: [id number] COMFORT CONTEH MD Apr 17, 2024 18:55
[2024-04-17] MEDS ORDERED: MEROPENEM 2GM/ 250ML 250 ML IV SCH (22:00)
[2024-04-17] MEDS: AMIODARONE HCL 200 MG TAB PO SCH (22:25)
[2024-04-18] VITALS (18 sets, daily range): BP systolic 98–139; BP diastolic 63–81; PULSE 100–130; RESP 16–24; TEMP 97.8–100.2; O2SAT 90–100
[2024-04-18 07:32] LABS: Sodium 143 mmol/L (136-145)
[2024-04-18 07:33] LABS: Anion Gap 14 (5-15); Carbon Dioxide 20 mmol/L (20-31)
[2024-04-18 07:38] LABS: BUN/Creatinine Ratio 10.9 (10.0-20.0)
[2024-04-18 07:42] LABS: Blood Urea Nitrogen 27 mg/dL (9-23); Chloride 109 mmol/L (98-107); Glucose 168 mg/dL (74-106)
--- NOTE | 2024-04-18 13:12 | DVHPN2 ---
Progress Note - Dictate Date Seen: Apr 18, 2024 Medical Necessity Reason Pt with a Central, PICC or Fol: No vital signs Vital Sign Date Time Temp Pulse Resp B/P (MAP) Pulse Ox O2 Delivery O2 Flow Rate FiO2 04/18/24 11:34 117 18 100 04/18/24 10:35 120/78 04/18/24 10:12 2.0 28 04/18/24 10:00 Nasal Cannula 04/18/24 09:00 97.8 97.8 Total Intake and Output 04/17/24 04/17/24 04/18/24 15:00 23:00 07:00 Intake Total 1060 ml 240 ml Output Total 100 ml Balance 960 ml 240 ml medications Current Medications Medications Dose Ordered Sig/Anish Route Start Time Stop Time Status Last Admin Dose Admin Metoprolol Tartrate 2.5 mg Q6HPRN PRN IV 04/12/24 00:45 04/15/24 02:24 2.5 MG Ondansetron HCl 4 mg Q6HPRN PRN IV 04/12/24 01:45 04/12/24 18:21 4 MG Morphine Sulfate 2 mg Q6HPRN PRN IV 04/12/24 01:45 04/12/24 18:22 2 MG Pantoprazole Sodium 40 mg DAILY IV 04/12/24 10:00 04/18/24 10:35 40 MG Acetaminophen 650 mg Q6HPRN PRN PO 04/12/24 01:45 04/16/24 21:21 650 MG Acetaminophen/ Hydrocodone Bitart 1 tab Q6HPRN PRN PO 04/12/24 01:45 04/12/24 10:47 1 TAB Diagnostic Test (Pha) 1 strip ACHS 04/12/24 07:00 04/18/24 11:30 1 STRIP Levalbuterol HCl 0.625 mg Q6HR NEB 04/12/24 06:00 04/18/24 11:24 0.625 MG Insulin Human Regular HS SC 04/12/24 22:00 04/14/24 21:33 4 UNITS Insulin Human Regular AC SC 04/12/24 17:00 04/18/24 12:13 2 UNITS Dextrose 50 ml UD PRN IV 04/12/24 15:45 Tamsulosin HCl 0.4 mg QPM PO 04/12/24 18:00 04/17/24 16:48 0.4 MG Metoprolol Succinate 25 mg BID PO 04/13/24 15:30 04/18/24 10:35 25 MG Patient Own Medication 1 gm Q8HR IV 04/14/24 17:30 UNV Hydralazine HCl 10 mg Q6HP PRN IV 04/14/24 17:45 04/14/24 17:54 10 MG Sodium Chloride 1,000 ml @ 60 mls/hr [id number] IV 04/15/24 10:15 04/17/24 16:39 60 MLS/HR Lactulose 30 ml Q8HPRN PO 04/15/24 22:00 Hold Docusate Sodium 100 mg BID PO 04/15/24 22:00 04/18/24 10:36 100 MG Sennosides 17.2 mg HS PO 04/15/24 22:00 04/17/24 22:24 17.2 MG Amiodarone HCl 200 mg Q12HR PO 04/17/24 22:00 04/18/24 10:37 200 MG objective GENERAL:Normal, HEENT:Normal, NECK:Normal, LUNGS:Normal, CVS:Normal, ABDOMEN:Normal, MSK:Normal, SKIN:Normal, NEURO:Normal, :Abnormal laboratory and microbiology Laboratory Tests 04/18/24 05:42 04/16/24 05:42 Test 04/18/24 05:42 Range/Units Serum Glucose 168 H 74-106 mg/dL Assessment/Plan DAX on CKD stage IV likely hemodynamically mediated in setting of sepsis Bladder mass 7 cm Sepsis due to UTI/ESBL Atrial fibrillation with RVR Syncopal episode Hypotension Recommendations Urology recs noted, patient refused procedure Continue gentle IV fluids Kidney function stable, no new recommendations at this time Dietary Evaluation Review Comments: 1) Consider a Renal Specific K2,low phos 2gmNa, 60gPro/CCHO diet 2) Continue current plan of care Expected Outcomes/Goals: F/U in 3-5 days Plan discussed with: Patient CC Plasma Assessment Blood Product Administration S: [id number] ALEISHA SHAVER MD Apr 18, 2024 13:12
[2024-04-18] MEDS: AMIODARONE BOLUS KIT 100 ML IV ONE ×2 (13:30→14:04)
[2024-04-18] MEDS ORDERED: LEVALBUTEROL HCL 1.25 MG/3 ML NEB NEB PRN (13:30)
[2024-04-18] MEDS: SODIUM ZIRCONIUM CYCL 10 GM PAK PO ONE (14:45)
[2024-04-18] MEDS: MEROPENEM 500MG PREMIX 50 ML IV SCH (17:34)
--- NOTE | 2024-04-18 17:36 | DVHPN2 ---
Progress Note - Dictate Date Seen: Apr 18, 2024 Medical Necessity Reason Pt with a Central, PICC or Fol: No Subjective Comfortable in bed. No acute distress noted. Denies any chest pain or shortness for breath. vital signs Vital Sign Date Time Temp Pulse Resp B/P (MAP) Pulse Ox O2 Delivery O2 Flow Rate FiO2 04/18/24 15:55 98.5 04/18/24 15:16 130 16 120/72 (88) 04/18/24 13:00 94 04/18/24 10:12 2.0 28 04/18/24 10:00 Nasal Cannula Total Intake and Output 04/17/24 04/17/24 04/18/24 15:00 23:00 07:00 Intake Total 1060 ml 240 ml Output Total 100 ml Balance 960 ml 240 ml medications Current Medications Medications Dose Ordered Sig/Anish Route Start Time Stop Time Status Last Admin Dose Admin Metoprolol Tartrate 2.5 mg Q6HPRN PRN IV 04/12/24 00:45 04/15/24 02:24 2.5 MG Ondansetron HCl 4 mg Q6HPRN PRN IV 04/12/24 01:45 04/12/24 18:21 4 MG Morphine Sulfate 2 mg Q6HPRN PRN IV 04/12/24 01:45 04/12/24 18:22 2 MG Acetaminophen 650 mg Q6HPRN PRN PO 04/12/24 01:45 04/18/24 14:55 650 MG Acetaminophen/ Hydrocodone Bitart 1 tab Q6HPRN PRN PO 04/12/24 01:45 04/12/24 10:47 1 TAB Diagnostic Test (Pha) 1 strip ACHS 04/12/24 07:00 04/18/24 16:41 1 STRIP Insulin Human Regular HS SC 04/12/24 22:00 04/14/24 21:33 4 UNITS Insulin Human Regular AC SC 04/12/24 17:00 04/18/24 12:13 2 UNITS Dextrose 50 ml UD PRN IV 04/12/24 15:45 Tamsulosin HCl 0.4 mg QPM PO 04/12/24 18:00 04/17/24 16:48 0.4 MG Metoprolol Succinate 25 mg BID PO 04/13/24 15:30 04/18/24 10:35 25 MG Patient Own Medication 1 gm Q8HR IV 04/14/24 17:30 UNV Hydralazine HCl 10 mg Q6HP PRN IV 04/14/24 17:45 04/14/24 17:54 10 MG Sodium Chloride 1,000 ml @ 60 mls/hr [id number] IV 04/15/24 10:15 04/17/24 16:39 60 MLS/HR Lactulose 30 ml Q8HPRN PO 04/15/24 22:00 Hold Docusate Sodium 100 mg BID PO 04/15/24 22:00 04/18/24 10:36 100 MG Sennosides 17.2 mg HS PO 04/15/24 22:00 04/17/24 22:24 17.2 MG Amiodarone HCl 400 mg Q12HR PO 04/18/24 22:00 Levalbuterol HCl 0.625 mg Q6HPRN PRN NEB 04/18/24 13:30 objective HEENT: neck supple no JVD poor dentition. CVS: heart tachycardia S1 plus S2. Pulmonary: lungs fair air movement without rales wheezes. GI: abdomen soft nontender positive bowel sounds. extremities no edema positive pulses. neurologically no deficits laboratory and microbiology Laboratory Tests 04/18/24 05:42 04/16/24 05:42 Test 04/18/24 05:42 Range/Units Serum Glucose 168 H 74-106 mg/dL Assessment/Plan Patient remains in atrial fibrillation at rest heart rate in the low 100s. Patient remains asymptomatic. I will give him a amiodarone 150 IV bolus. I will increase his oral amiodarone to 400 twice a day. Continue current antibiotic for ESBL UTI. Otherwise continue rest of supportive care and treatment. Follow clinical management per finishing course and discussed plan of care with nurse as well as patient at bedside. Problems(with codes): (1) Atrial fibrillation with RVR (2) [id number] kidney injury (3) UTI (urinary tract infection) (4) Anemia (5) Diabetes mellitus (6) Weakness Dietary Evaluation Review Comments: 1) Consider a Renal Specific K2,low phos 2gmNa, 60gPro/CCHO diet 2) Continue current plan of care Expected Outcomes/Goals: F/U in 3-5 days Plan discussed with: Patient, Other CC Plasma Assessment Blood Product Administration S: [id number] GANAPAVARAPU,HERRERA MD Apr 18, 2024 17:36
[2024-04-18] MEDS: AMIODARONE HCL 200 MG TAB PO SCH (21:31)
[2024-04-19] VITALS (11 sets, daily range): BP systolic 117–147; BP diastolic 61–87; PULSE 82–119; RESP 18–20; TEMP 98.4–101; O2SAT 96–100
[2024-04-19 07:11] LABS: Basophils # (auto) 0.1 10 ^3/uL (0-0.2); Basophils % (auto) 1.2 % (0.0-2.0); Eosinophils # (auto) 0 10 ^3/uL (0-0.8); Eosinophils % (auto) 0.2 % (0.0-7.0); Hematocrit 26.3 % (41.0-53.0); Hemoglobin 8.4 g/dL (13.5-17.5); Lymphocytes # (auto) 1.4 10 ^3/uL (0.4-5.4); Lymphocytes % (auto) 26.6 % (10.0-50.0); Mean Corpuscular Hemoglobin 22.1 pg (28.0-32.0); Mean Corpuscular Volume 68.9 fL (80.0-100.0); Monocytes # (auto) 0.5 10 ^3/uL (0-1.3); Monocytes % (auto) 9.9 % (0.0-12.0); Neutrophils # (auto) 3.3 10 ^3/uL (1.6-8.6); Neutrophils % (auto) 62.1 % (37.0-80.0); Nucleated Red Blood Cells % 0.2 %; Platelet Count (auto) 165 10^3/uL (140-450); Red Blood Cells 3.82 10^6/uL (4.5-5.90); White Blood Cell 5.4 10^3/uL (4.4-10.8)
[2024-04-19 07:19] LABS: Red Cell Distribution Width 30.3 % (11.8-14.3)
[2024-04-19 07:30] LABS: Alanine Aminotransferase 16 U/L (7-40); Albumin 3.1 g/dL (3.2-4.8); Alkaline Phosphatase 79 U/L (46-116); Anion Gap 13 (5-15); Aspartate Aminotransferase 20 U/L (13-40); BUN/Creatinine Ratio 11.2 (10.0-20.0); Bilirubin, Total 0.3 mg/dL (0.2-1.0); Blood Urea Nitrogen 26 mg/dL (9-23); Calcium 8.5 mg/dL (8.7-10.4); Carbon Dioxide 21 mmol/L (20-31); Chloride 110 mmol/L (98-107); Glucose 165 mg/dL (74-106); Magnesium 1.5 mg/dL (1.6-2.6); Potassium 4.2 mmol/L (3.5-5.1); Sodium 144 mmol/L (136-145); Total Protein 5.4 g/dL (5.7-8.2)
[2024-04-19 08:23] LABS: Anisocytosis Moderate; Hypochromia Slight; Ovalocytes FEW
[2024-04-19 08:24] LABS: Platelet Estimate Adequate
--- NOTE | 2024-04-19 13:14 | DVHPN2 ---
Progress Note - Dictate Date Seen: Apr 19, 2024 Medical Necessity Reason Pt with a Central, PICC or Fol: No vital signs Vital Sign Date Time Temp Pulse Resp B/P (MAP) Pulse Ox O2 Delivery O2 Flow Rate FiO2 04/19/24 12:07 101.0 04/19/24 10:00 99 Nasal Cannula 3.0 04/19/24 10:00 32 04/19/24 08:00 116 04/19/24 08:00 20 04/19/24 05:00 125/61 (82) Total Intake and Output 04/18/24 04/18/24 04/19/24 14:59 22:59 06:59 Intake Total 380 ml 350 ml Output Total 300 ml Balance 380 ml 50 ml medications Current Medications Medications Dose Ordered Sig/Anish Route Start Time Stop Time Status Last Admin Dose Admin Metoprolol Tartrate 2.5 mg Q6HPRN PRN IV 04/12/24 00:45 04/15/24 02:24 2.5 MG Ondansetron HCl 4 mg Q6HPRN PRN IV 04/12/24 01:45 04/12/24 18:21 4 MG Morphine Sulfate 2 mg Q6HPRN PRN IV 04/12/24 01:45 04/12/24 18:22 2 MG Acetaminophen 650 mg Q6HPRN PRN PO 04/12/24 01:45 04/19/24 12:07 650 MG Acetaminophen/ Hydrocodone Bitart 1 tab Q6HPRN PRN PO 04/12/24 01:45 04/12/24 10:47 1 TAB Diagnostic Test (Pha) 1 strip ACHS 04/12/24 07:00 04/19/24 11:37 1 STRIP Insulin Human Regular HS SC 04/12/24 22:00 04/14/24 21:33 4 UNITS Insulin Human Regular AC SC 04/12/24 17:00 04/19/24 12:04 3 UNITS Dextrose 50 ml UD PRN IV 04/12/24 15:45 Tamsulosin HCl 0.4 mg QPM PO 04/12/24 18:00 04/18/24 17:33 0.4 MG Metoprolol Succinate 25 mg BID PO 04/13/24 15:30 04/18/24 21:32 25 MG Patient Own Medication 1 gm Q8HR IV 04/14/24 17:30 UNV Hydralazine HCl 10 mg Q6HP PRN IV 04/14/24 17:45 04/14/24 17:54 10 MG Sodium Chloride 1,000 ml @ 60 mls/hr [id number] IV 04/15/24 10:15 04/19/24 11:41 60 MLS/HR Lactulose 30 ml Q8HPRN PO 04/15/24 22:00 Hold Docusate Sodium 100 mg BID PO 04/15/24 22:00 04/19/24 10:44 100 MG Sennosides 17.2 mg HS PO 04/15/24 22:00 04/18/24 21:31 17.2 MG Amiodarone HCl 400 mg Q12HR PO 04/18/24 22:00 04/19/24 10:44 400 MG Levalbuterol HCl 0.625 mg Q6HPRN PRN NEB 04/18/24 13:30 Mycophenolate Mofetil 500 mg BID PO 04/19/24 22:00 Patient Own Medication 4 tab BIDAC PO 04/19/24 17:00 objective GENERAL:Normal, HEENT:Normal, NECK:Normal, LUNGS:Normal, CVS:Normal, ABDOMEN:Normal, MSK:Normal, SKIN:Normal, NEURO:Normal, :Abnormal laboratory and microbiology Laboratory Tests 04/19/24 06:14 Test 04/19/24 06:14 Range/Units Serum Glucose 165 H 74-106 mg/dL Assessment/Plan DAX on CKD stage IV likely hemodynamically mediated in setting of sepsis Bladder mass 7 cm Sepsis due to UTI/ESBL Atrial fibrillation with RVR Syncopal episode Hypotension Recommendations + fever today rec repeat Ucx Urology recs noted, patient refused procedure Continue gentle IV fluids Kidney function stable, no new recommendations at this time Dietary Evaluation Review Comments: 1) Consider a Renal Specific K2,low phos 2gmNa, 60gPro/CCHO diet 2) Continue current plan of care Expected Outcomes/Goals: F/U in 3-5 days Plan discussed with: Patient CC Plasma Assessment Blood Product Administration S: [id number] ALEISHA SHAVER MD Apr 19, 2024 13:14
--- NOTE | 2024-04-19 15:10 | DVHPN2 ---
Progress Note - Dictate Date Seen: Apr 19, 2024 Medical Necessity Reason Pt with a Central, PICC or Fol: No Subjective Comfortable in bed. No acute distress noted. Heart rate is slightly improved patient is having fevers overnight. vital signs Vital Sign Date Time Temp Pulse Resp B/P (MAP) Pulse Ox O2 Delivery O2 Flow Rate FiO2 04/19/24 12:07 101.0 04/19/24 10:00 99 Nasal Cannula 3.0 04/19/24 10:00 32 04/19/24 08:00 116 04/19/24 08:00 20 04/19/24 05:00 125/61 (82) Total Intake and Output 04/18/24 04/18/24 04/19/24 15:00 23:00 07:00 Intake Total 380 ml 350 ml Output Total 300 ml Balance 380 ml 50 ml medications Current Medications Medications Dose Ordered Sig/Anish Route Start Time Stop Time Status Last Admin Dose Admin Metoprolol Tartrate 2.5 mg Q6HPRN PRN IV 04/12/24 00:45 04/15/24 02:24 2.5 MG Ondansetron HCl 4 mg Q6HPRN PRN IV 04/12/24 01:45 04/12/24 18:21 4 MG Morphine Sulfate 2 mg Q6HPRN PRN IV 04/12/24 01:45 04/12/24 18:22 2 MG Acetaminophen 650 mg Q6HPRN PRN PO 04/12/24 01:45 04/19/24 12:07 650 MG Acetaminophen/ Hydrocodone Bitart 1 tab Q6HPRN PRN PO 04/12/24 01:45 04/12/24 10:47 1 TAB Diagnostic Test (Pha) 1 strip ACHS 04/12/24 07:00 04/19/24 11:37 1 STRIP Insulin Human Regular HS SC 04/12/24 22:00 04/14/24 21:33 4 UNITS Insulin Human Regular AC SC 04/12/24 17:00 04/19/24 12:04 3 UNITS Dextrose 50 ml UD PRN IV 04/12/24 15:45 Tamsulosin HCl 0.4 mg QPM PO 04/12/24 18:00 04/18/24 17:33 0.4 MG Metoprolol Succinate 25 mg BID PO 04/13/24 15:30 04/18/24 21:32 25 MG Patient Own Medication 1 gm Q8HR IV 04/14/24 17:30 UNV Hydralazine HCl 10 mg Q6HP PRN IV 04/14/24 17:45 04/14/24 17:54 10 MG Sodium Chloride 1,000 ml @ 60 mls/hr [id number] IV 04/15/24 10:15 04/19/24 11:41 60 MLS/HR Lactulose 30 ml Q8HPRN PO 04/15/24 22:00 Hold Docusate Sodium 100 mg BID PO 04/15/24 22:00 04/19/24 10:44 100 MG Sennosides 17.2 mg HS PO 04/15/24 22:00 04/18/24 21:31 17.2 MG Amiodarone HCl 400 mg Q12HR PO 04/18/24 22:00 04/19/24 10:44 400 MG Levalbuterol HCl 0.625 mg Q6HPRN PRN NEB 04/18/24 13:30 Mycophenolate Mofetil 500 mg BID PO 04/19/24 22:00 Patient Own Medication 4 tab BIDAC PO 04/19/24 17:00 objective HEENT: neck supple no JVD poor dentition. CVS: heart tachycardia S1 plus S2. Pulmonary: lungs fair air movement without rales wheezes. GI: abdomen soft nontender positive bowel sounds. extremities no edema positive pulses. neurologically no deficits laboratory and microbiology Laboratory Tests 04/19/24 06:14 Test 04/19/24 06:14 Range/Units Serum Glucose 165 H 74-106 mg/dL Assessment/Plan Patient remains in atrial fibrillation at rest heart rate in the low 100s. Patient remains asymptomatic. To continue current amiodarone and metoprolol. Again patient is spiked fever we will repeat blood and urine cultures today. Patient may need to have his midline removed he has persistent infection. Meantime continue current antibiotic for ESBL UTI. We will resume his home immunosuppressive medications that have not started the while in the hospital. Otherwise continue nystatin for again treatment and for looking management for clinical course. Discussed with the patient and the nurse regarding care plan. Problems(with codes): (1) Ywlkz-ft-ahjzjsq kidney injury (2) Atrial fibrillation (3) UTI (urinary tract infection) (4) Atrial fibrillation with RVR (5) Diabetes mellitus (6) Weakness Dietary Evaluation Review Comments: 1) Consider a Renal Specific K2,low phos 2gmNa, 60gPro/CCHO diet 2) Continue current plan of care Expected Outcomes/Goals: F/U in 3-5 days Plan discussed with: Other CC Plasma Assessment Blood Product Administration S: [id number] HERRERA ENRIQUEZ MD Apr 19, 2024 15:10
[2024-04-19 16:48] LABS: Urine Bacteria MOD /hpf (None Seen); Urine Blood 2+ /uL (Negative); Urine Clarity Ex.Turbid (Clear); Urine Color Light-Orange (Yellow); Urine Mucus FEW (None Seen); Urine Protein, UAD 2+ (Negative); Urine Specific Gravity 1.015 (1.001-1.035); Urine Squamous Epithelial Cell FEW /hpf (<5); Urine Urobilinogen Normal (Negative); Urine WBC 625 /hpf (0 - 3); Urine WBC Clumps PRESENT /hpf (None Seen); Urine pH 5.5 (5.0-9.0)
[2024-04-19] MEDS: EVEROLIMUS 0.5 MG PO SCH (17:42)
--- NOTE | 2024-04-19 19:03 | DVHPN2 ---
Progress Note - Dictate Date Seen: Apr 19, 2024 Medical Necessity Reason Pt with a Central, PICC or Fol: No Subjective Patient is comfortable in bed. No acute distress noted. Heart rate is slightly improved, patient is having fevers overnight. vital signs Vital Sign Date Time Temp Pulse Resp B/P (MAP) Pulse Ox O2 Delivery O2 Flow Rate FiO2 04/19/24 17:00 98.8 117 20 147/87 (107) 98 98.8 04/19/24 10:00 Nasal Cannula 3.0 04/19/24 10:00 32 Total Intake and Output 04/18/24 04/18/24 04/19/24 15:00 23:00 07:00 Intake Total 380 ml 350 ml Output Total 300 ml Balance 380 ml 50 ml medications Current Medications Medications Dose Ordered Sig/Anish Route Start Time Stop Time Status Last Admin Dose Admin Metoprolol Tartrate 2.5 mg Q6HPRN PRN IV 04/12/24 00:45 04/15/24 02:24 2.5 MG Ondansetron HCl 4 mg Q6HPRN PRN IV 04/12/24 01:45 04/12/24 18:21 4 MG Morphine Sulfate 2 mg Q6HPRN PRN IV 04/12/24 01:45 04/12/24 18:22 2 MG Acetaminophen 650 mg Q6HPRN PRN PO 04/12/24 01:45 04/19/24 12:07 650 MG Acetaminophen/ Hydrocodone Bitart 1 tab Q6HPRN PRN PO 04/12/24 01:45 04/12/24 10:47 1 TAB Diagnostic Test (Pha) 1 strip ACHS 04/12/24 07:00 04/19/24 16:52 1 STRIP Insulin Human Regular HS SC 04/12/24 22:00 04/14/24 21:33 4 UNITS Insulin Human Regular AC SC 04/12/24 17:00 04/19/24 12:04 3 UNITS Dextrose 50 ml UD PRN IV 04/12/24 15:45 Tamsulosin HCl 0.4 mg QPM PO 04/12/24 18:00 04/19/24 17:41 0.4 MG Metoprolol Succinate 25 mg BID PO 04/13/24 15:30 04/18/24 21:32 25 MG Patient Own Medication 1 gm Q8HR IV 04/14/24 17:30 UNV Hydralazine HCl 10 mg Q6HP PRN IV 04/14/24 17:45 04/14/24 17:54 10 MG Sodium Chloride 1,000 ml @ 60 mls/hr [id number] IV 04/15/24 10:15 04/19/24 15:23 60 MLS/HR Lactulose 30 ml Q8HPRN PO 04/15/24 22:00 Hold Docusate Sodium 100 mg BID PO 04/15/24 22:00 04/19/24 10:44 100 MG Sennosides 17.2 mg HS PO 04/15/24 22:00 04/18/24 21:31 17.2 MG Amiodarone HCl 400 mg Q12HR PO 04/18/24 22:00 04/19/24 10:44 400 MG Levalbuterol HCl 0.625 mg Q6HPRN PRN NEB 04/18/24 13:30 Mycophenolate Mofetil 500 mg BID PO 04/19/24 22:00 Patient Own Medication 4 tab BIDAC PO 04/19/24 17:00 04/19/24 17:42 4 TAB Finasteride 5 mg DAILY PO 04/20/24 10:00 objective General: Patient appears alert, comfortable and well-appearing. HEENT: Normocephalic, atraumatic, Sclera anicteric, conjunctiva clear, No nasal discharge or congestion. Mucous membranes moist, no tonsillar erythema or exudates. Neck: No cervical lymphadenopathy or masses. No neck stiffness. Lungs: Breath sounds clear bilaterally, no wheezes, rales, or rhonchi. No use of accessory muscles or respiratory distress. Cardiovascular: Regular rate and rhythm, no murmurs, rubs, or gallops. Abdomen: Soft, non-tender, non-distended. Bowel sounds present in all quadrants. No hepatosplenomegaly or masses. Skin: No rash, petechiae, or ecchymosis. Extremities: No edema, cyanosis, or clubbing. No tenderness to palpation, erythema, or swelling in joints. No signs of deep vein thrombosis (DVT). Neurologic: Patient is alert and oriented to person, place, and time. Cranial nerves II-XII intact. Motor strength 5/5 bilaterally in all extremities. laboratory and microbiology Laboratory Tests 04/19/24 06:14 Test 04/19/24 06:14 Range/Units Serum Glucose 165 H 74-106 mg/dL Assessment/Plan Patient is a 78-year-old male presents with syncopal episode. Patient found to have UTI due to Klebsiella ESBL Bladder mass Atrial fibrillation with RVR Acute anemia Acute on chronic kidney injury Hypoglycemia Hypotension Syncope Recommendations: cont IV Meropenem Based on culture sensitivity Midline refused TURBT under anesthesia urology on board 04/11, Patient's urine culture came back ESBL positive. 04/14, Blood culture: No growth monitored. 04/14, Wound culture: Pending. 04/14, Renal US showed: Decreased bilateral renal cortical thickness and increased echogenicity concerning for medical renal disease. 7 cm mass along the base of the urinary bladder. Consider further evaluation with cystoscopy and biopsy. Thank you for opportunity to take care of this patient. Dietary Evaluation Review Comments: 1) Consider a Renal Specific K2,low phos 2gmNa, 60gPro/CCHO diet 2) Continue current plan of care Expected Outcomes/Goals: F/U in 3-5 days Plan discussed with: Other CC Plasma Assessment Blood Product Administration S: [id number] MARTA ALBARRAN MD Apr 19, 2024 19:03
[2024-04-19] MEDS: MYCOPHENOLATE 500 MG TAB PO SCH (22:13)
[2024-04-20] VITALS (13 sets, daily range): BP systolic 110–150; BP diastolic 60–77; PULSE 89–130; RESP 16–20; TEMP 98–99.5; O2SAT 96–99
[2024-04-20 07:38] LABS: Basophils # (auto) 0 10 ^3/uL (0-0.2); Eosinophils # (auto) 0 10 ^3/uL (0-0.8); Hematocrit 27.7 % (41.0-53.0); Hemoglobin 8.8 g/dL (13.5-17.5); Monocytes # (auto) 0.6 10 ^3/uL (0-1.3); Neutrophils # (auto) 3.1 10 ^3/uL (1.6-8.6)
[2024-04-20 07:40] LABS: Basophils % (auto) 0.8 % (0.0-2.0); Eosinophils % (auto) 0.9 % (0.0-7.0); Lymphocytes # (auto) 1.6 10 ^3/uL (0.4-5.4); Lymphocytes % (auto) 30.1 % (10.0-50.0); Mean Corpuscular Hemoglobin 21.9 pg (28.0-32.0); Mean Corpuscular Hgb Conc. 31.6 g/dL (32.0-36.0); Mean Corpuscular Volume 69.4 fL (80.0-100.0); Monocytes % (auto) 10.3 % (0.0-12.0); Neutrophils % (auto) 57.9 % (37.0-80.0); Nucleated Red Blood Cells % 0.2 %; Platelet Count (auto) 189 10^3/uL (140-450); Red Blood Cells 3.99 10^6/uL (4.5-5.90); White Blood Cell 5.3 10^3/uL (4.4-10.8)
[2024-04-20 07:42] LABS: Anion Gap 10 (5-15); Calcium 8.8 mg/dL (8.7-10.4); Carbon Dioxide 21 mmol/L (20-31); Sodium 142 mmol/L (136-145)
[2024-04-20 07:45] LABS: Red Cell Distribution Width 30.1 % (11.8-14.3)
[2024-04-20 07:51] LABS: Blood Urea Nitrogen 23 mg/dL (9-23); Chloride 111 mmol/L (98-107); Glucose 122 mg/dL (74-106)
[2024-04-20 08:22] LABS: Anisocytosis Moderate
[2024-04-20 08:23] LABS: Hypochromia Slight
[2024-04-20 08:24] LABS: Ovalocytes FEW; Platelet Estimate Adequate
[2024-04-20] MEDS: FINASTERIDE 5 MG TAB PO SCH (10:26)
--- NOTE | 2024-04-20 13:04 | DVHPN2 ---
Progress Note Date Seen: Apr 20, 2024 Medical Necessity Reason Pt with a Central, PICC or Fol: No Subjective Patient reports: No new complaints Other Systems: Patient seen and examined by myself today in follow-up Objective vital signs Vital Sign Date Time Temp Pulse Resp B/P (MAP) Pulse Ox O2 Delivery O2 Flow Rate FiO2 04/20/24 10:00 96 Nasal Cannula* 2 28 04/20/24 10:00 111 128/72 04/20/24 09:00 98.8 18 98.8 Total Intake and Output 04/19/24 04/19/24 04/20/24 15:00 23:00 07:00 Intake Total 384 ml 920 ml Output Total 650 ml Balance 384 ml 920 ml -650 ml medications Current Medications Medications Dose Ordered Sig/Anish Route Start Time Stop Time Status Last Admin Dose Admin Metoprolol Tartrate 2.5 mg Q6HPRN PRN IV 04/12/24 00:45 04/15/24 02:24 2.5 MG Ondansetron HCl 4 mg Q6HPRN PRN IV 04/12/24 01:45 04/12/24 18:21 4 MG Morphine Sulfate 2 mg Q6HPRN PRN IV 04/12/24 01:45 04/12/24 18:22 2 MG Acetaminophen 650 mg Q6HPRN PRN PO 04/12/24 01:45 04/19/24 12:07 650 MG Acetaminophen/ Hydrocodone Bitart 1 tab Q6HPRN PRN PO 04/12/24 01:45 04/12/24 10:47 1 TAB Diagnostic Test (Pha) 1 strip ACHS 04/12/24 07:00 04/20/24 11:30 1 STRIP Insulin Human Regular HS SC 04/12/24 22:00 04/19/24 22:17 2 UNITS Insulin Human Regular AC SC 04/12/24 17:00 04/20/24 12:39 6 UNITS Dextrose 50 ml UD PRN IV 04/12/24 15:45 Tamsulosin HCl 0.4 mg QPM PO 04/12/24 18:00 04/19/24 17:41 0.4 MG Metoprolol Succinate 25 mg BID PO 04/13/24 15:30 04/19/24 22:00 25 MG Patient Own Medication 1 gm Q8HR IV 04/14/24 17:30 UNV Hydralazine HCl 10 mg Q6HP PRN IV 04/14/24 17:45 04/14/24 17:54 10 MG Sodium Chloride 1,000 ml @ 60 mls/hr [id number] IV 04/15/24 10:15 04/19/24 15:23 60 MLS/HR Lactulose 30 ml Q8HPRN PO 04/15/24 22:00 Hold Docusate Sodium 100 mg BID PO 04/15/24 22:00 04/20/24 10:26 100 MG Sennosides 17.2 mg HS PO 04/15/24 22:00 04/19/24 21:56 17.2 MG Amiodarone HCl 400 mg Q12HR PO 04/18/24 22:00 04/20/24 10:27 400 MG Levalbuterol HCl 0.625 mg Q6HPRN PRN NEB 04/18/24 13:30 Mycophenolate Mofetil 500 mg BID PO 04/19/24 22:00 04/20/24 10:27 500 MG Patient Own Medication 4 tab BIDAC PO 04/19/24 17:00 04/20/24 07:59 4 TAB Finasteride 5 mg DAILY PO 04/20/24 10:00 04/20/24 10:26 5 MG Examination: LUNGS:Normal, CVS:Normal, MSK:Normal laboratory and microbiology Laboratory Tests 04/20/24 06:43 Test 04/20/24 06:43 Range/Units Serum Glucose 122 H 74-106 mg/dL Microbiology Date/Time Source Procedure Growth Status 04/14/24 23:25 Catheter Site Gram Stain - Final Resulted 04/14/24 23:25 Catheter Site Wound Culture - Preliminary Resulted 04/14/24 16:41 Blood Blood Culture - Final NO GROWTH AFTER 5 DAYS OF INCUBATION. Complete 04/11/24 20:45 Voided Urine Urine Culture - Final Escherichia coli - ESBL Complete Problem List/Assessment/Plan Problem List/Assessment/Plan DAX on CKD stage IV likely hemodynamically mediated in setting of sepsis Lung transplant Bladder mass 7 cm Sepsis due to UTI/ESBL Atrial fibrillation with RVR Syncopal episode Diabetes mellitus type 2 Hypotension Sepsis Recommendations Kidney function slowly improving Increased urine output IV antibiotic per ID consult Urology consult Insulin sliding scale Pulmonary consult Urology consult We will continue to follow up Plan discussed with: Patient Dietary Evaluation Review Comments: 1) Consider a Renal Specific K2,low phos 2gmNa, 60gPro/CCHO diet 2) Continue current plan of care Expected Outcomes/Goals: F/U in 3-5 days CC Plasma Assessment Blood Product Administration S: [id number] SUDEEP GUILLEN MD Apr 20, 2024 13:04
--- NOTE | 2024-04-20 15:05 | ECG ---
[facility] Test Date: 2024-04-12 Test Time: 00:55:26 Pat Name: GIANNI SCHWARTZ Department: ED Room: 0283T Gender: M [employer]: : [id number] Requested By: NORMA PEDROZA Order Number: [id number] Reading MD: Nino Castañeda Measurements Intervals [place] Rate: 174 P: 0 NH: 0 QRS: 142 QRSD: 103 T: 71 QT: 305 QTc: 519 Interpretive Statements Atrial fibrillation with rapid V-rate Right axis deviation Abnormal R-wave progression, late transition Repolarization abnormality, prob rate related Artifact in lead(s) I,II,III,aVR,aVL,aVF,V1,V2,V3,V5 Electronically Signed On 04-24-2024 9:43:23 PST by Nino Castañeda Please click the below link to view image of tracing.
[2024-04-20] MEDS: AMIODARONE BOLUS KIT 100 ML IV ONE (15:15)
--- NOTE | 2024-04-20 15:58 | DVHPN2 ---
Progress Note - Dictate Date Seen: Apr 20, 2024 Medical Necessity Reason Pt with a Central, PICC or Fol: No Subjective Comfortable in bed. No acute distress noted. Repeat urine and blood cultures so far negative for growth from yesterday. Remains afebrile overnight. vital signs Vital Sign Date Time Temp Pulse Resp B/P (MAP) Pulse Ox O2 Delivery O2 Flow Rate FiO2 04/20/24 13:00 98.0 103 18 129/71 (90) 98 98.0 04/20/24 10:00 Nasal Cannula* 2 28 Total Intake and Output 04/19/24 04/19/24 04/20/24 15:00 23:00 07:00 Intake Total 384 ml 920 ml Output Total 650 ml Balance 384 ml 920 ml -650 ml medications Current Medications Medications Dose Ordered Sig/Anish Route Start Time Stop Time Status Last Admin Dose Admin Metoprolol Tartrate 2.5 mg Q6HPRN PRN IV 04/12/24 00:45 04/15/24 02:24 2.5 MG Ondansetron HCl 4 mg Q6HPRN PRN IV 04/12/24 01:45 04/12/24 18:21 4 MG Morphine Sulfate 2 mg Q6HPRN PRN IV 04/12/24 01:45 04/12/24 18:22 2 MG Acetaminophen 650 mg Q6HPRN PRN PO 04/12/24 01:45 04/19/24 12:07 650 MG Acetaminophen/ Hydrocodone Bitart 1 tab Q6HPRN PRN PO 04/12/24 01:45 04/12/24 10:47 1 TAB Diagnostic Test (Pha) 1 strip ACHS 04/12/24 07:00 04/20/24 11:30 1 STRIP Insulin Human Regular HS SC 04/12/24 22:00 04/19/24 22:17 2 UNITS Insulin Human Regular AC SC 04/12/24 17:00 04/20/24 12:39 6 UNITS Dextrose 50 ml UD PRN IV 04/12/24 15:45 Tamsulosin HCl 0.4 mg QPM PO 04/12/24 18:00 04/19/24 17:41 0.4 MG Metoprolol Succinate 25 mg BID PO 04/13/24 15:30 04/19/24 22:00 25 MG Patient Own Medication 1 gm Q8HR IV 04/14/24 17:30 UNV Hydralazine HCl 10 mg Q6HP PRN IV 04/14/24 17:45 04/14/24 17:54 10 MG Sodium Chloride 1,000 ml @ 60 mls/hr [id number] IV 04/15/24 10:15 04/19/24 15:23 60 MLS/HR Lactulose 30 ml Q8HPRN PO 04/15/24 22:00 Hold Docusate Sodium 100 mg BID PO 04/15/24 22:00 04/20/24 10:26 100 MG Sennosides 17.2 mg HS PO 04/15/24 22:00 04/19/24 21:56 17.2 MG Amiodarone HCl 400 mg Q12HR PO 04/18/24 22:00 04/20/24 10:27 400 MG Levalbuterol HCl 0.625 mg Q6HPRN PRN NEB 04/18/24 13:30 Patient Own Medication 4 tab BIDAC PO 04/19/24 17:00 04/20/24 07:59 4 TAB Finasteride 5 mg DAILY PO 04/20/24 10:00 04/20/24 10:26 5 MG Mycophenolate Mofetil 1,000 mg BID PO 04/20/24 22:00 objective HEENT: neck supple no JVD poor dentition. CVS: heart tachycardia S1 plus S2. Pulmonary: lungs fair air movement without rales wheezes. GI: abdomen soft nontender positive bowel sounds. extremities no edema positive pulses. neurologically no deficits laboratory and microbiology Laboratory Tests 04/20/24 06:43 Test 04/20/24 06:43 Range/Units Serum Glucose 122 H 74-106 mg/dL Assessment/Plan Patient remains in atrial fibrillation at rest heart rate in the low 100s. Patient remains asymptomatic. To continue current amiodarone and metoprolol. Continue current antibiotic. He is repeat cultures are negative for any infection at present. We will have Dr. Garsia cardiology re-evaluate him for persistent AFib with low 100s tachycardia. We will give him another dose of amiodarone IV bolus today. Continue oral amiodarone. Otherwise follow clinical management per clinical course. Discussed with the patient's nurse regarding care plan. Problems(with codes): (1) UTI (urinary tract infection) (2) Rztus-xn-hdissdd kidney injury (3) Atrial fibrillation with RVR (4) Diabetes mellitus (5) Weakness Dietary Evaluation Review Comments: 1) Consider a Renal Specific K2,low phos 2gmNa, 60gPro/CCHO diet 2) Continue current plan of care Expected Outcomes/Goals: F/U in 3-5 days Plan discussed with: Patient, Other CC Plasma Assessment Blood Product Administration S: [id number] HERRERA ENRIQUEZ MD Apr 20, 2024 15:58
--- NOTE | 2024-04-20 18:46 | DVHPN2 ---
Progress Note - Dictate Date Seen: Apr 20, 2024 Medical Necessity Reason Pt with a Central, PICC or Fol: No Subjective Patient is comfortable in bed. No acute distress noted. Repeat urine and blood cultures so far negative for growth from yesterday. Remains afebrile overnight. persistent elevated heart rate vital signs Vital Sign Date Time Temp Pulse Resp B/P (MAP) Pulse Ox O2 Delivery O2 Flow Rate FiO2 04/20/24 17:07 98.1 121 20 134/62 (86) 99 98.1 04/20/24 10:00 Nasal Cannula* 2 28 Total Intake and Output 04/19/24 04/19/24 04/20/24 15:00 23:00 07:00 Intake Total 384 ml 920 ml Output Total 650 ml Balance 384 ml 920 ml -650 ml medications Current Medications Medications Dose Ordered Sig/Anish Route Start Time Stop Time Status Last Admin Dose Admin Metoprolol Tartrate 2.5 mg Q6HPRN PRN IV 04/12/24 00:45 04/15/24 02:24 2.5 MG Ondansetron HCl 4 mg Q6HPRN PRN IV 04/12/24 01:45 04/12/24 18:21 4 MG Morphine Sulfate 2 mg Q6HPRN PRN IV 04/12/24 01:45 04/12/24 18:22 2 MG Acetaminophen 650 mg Q6HPRN PRN PO 04/12/24 01:45 04/19/24 12:07 650 MG Acetaminophen/ Hydrocodone Bitart 1 tab Q6HPRN PRN PO 04/12/24 01:45 04/12/24 10:47 1 TAB Diagnostic Test (Pha) 1 strip ACHS 04/12/24 07:00 04/20/24 11:30 1 STRIP Insulin Human Regular HS SC 04/12/24 22:00 04/19/24 22:17 2 UNITS Insulin Human Regular AC SC 04/12/24 17:00 04/20/24 12:39 6 UNITS Dextrose 50 ml UD PRN IV 04/12/24 15:45 Tamsulosin HCl 0.4 mg QPM PO 04/12/24 18:00 04/19/24 17:41 0.4 MG Metoprolol Succinate 25 mg BID PO 04/13/24 15:30 04/19/24 22:00 25 MG Patient Own Medication 1 gm Q8HR IV 04/14/24 17:30 UNV Hydralazine HCl 10 mg Q6HP PRN IV 04/14/24 17:45 04/14/24 17:54 10 MG Sodium Chloride 1,000 ml @ 60 mls/hr [id number] IV 04/15/24 10:15 04/19/24 15:23 60 MLS/HR Lactulose 30 ml Q8HPRN PO 04/15/24 22:00 Hold Docusate Sodium 100 mg BID PO 04/15/24 22:00 04/20/24 10:26 100 MG Sennosides 17.2 mg HS PO 04/15/24 22:00 04/19/24 21:56 17.2 MG Amiodarone HCl 400 mg Q12HR PO 04/18/24 22:00 04/20/24 10:27 400 MG Levalbuterol HCl 0.625 mg Q6HPRN PRN NEB 04/18/24 13:30 Patient Own Medication 4 tab BIDAC PO 04/19/24 17:00 04/20/24 07:59 4 TAB Finasteride 5 mg DAILY PO 04/20/24 10:00 04/20/24 10:26 5 MG Mycophenolate Mofetil 1,000 mg BID PO 04/20/24 22:00 objective General: Patient appears alert, comfortable and well-appearing. HEENT: Normocephalic, atraumatic, Sclera anicteric, conjunctiva clear, No nasal discharge or congestion. Mucous membranes moist, no tonsillar erythema or exudates. Neck: No cervical lymphadenopathy or masses. No neck stiffness. Lungs: Breath sounds clear bilaterally, no wheezes, rales, or rhonchi. No use of accessory muscles or respiratory distress. Cardiovascular: Regular rate and rhythm, no murmurs, rubs, or gallops. Abdomen: Soft, non-tender, non-distended. Bowel sounds present in all quadrants. No hepatosplenomegaly or masses. Skin: No rash, petechiae, or ecchymosis. Extremities: No edema, cyanosis, or clubbing. No tenderness to palpation, erythema, or swelling in joints. No signs of deep vein thrombosis (DVT). Neurologic: Patient is alert and oriented to person, place, and time. Cranial nerves II-XII intact. Motor strength 5/5 bilaterally in all extremities. laboratory and microbiology Laboratory Tests 04/20/24 06:43 Test 04/20/24 06:43 Range/Units Serum Glucose 122 H 74-106 mg/dL Assessment/Plan Patient is a 78-year-old male presents with syncopal episode. Patient found to have UTI due to Klebsiella ESBL Bladder mass Atrial fibrillation with RVR Acute anemia Acute on chronic kidney injury Hypoglycemia Hypotension Syncope Recommendations: cont IV Meropenem Midline 04/11, Patient's urine culture came back ESBL positive. 04/19, Urine culture Preliminary: No growth monitored 04/14, Blood culture: No growth monitored. 06/20, Blood culture Preliminary: No growth monitored 04/14, Renal US showed: Decreased bilateral renal cortical thickness and increased echogenicity concerning for medical renal disease. 7 cm mass along the base of the urinary bladder. Consider further evaluation with cystoscopy and biopsy. refused cystoscopy under anesthesia Thank you for opportunity to take care of this patient. Dietary Evaluation Review Comments: 1) Consider a Renal Specific K2,low phos 2gmNa, 60gPro/CCHO diet 2) Continue current plan of care Expected Outcomes/Goals: F/U in 3-5 days Plan discussed with: Other CC Plasma Assessment Blood Product Administration S: [id number] MARTA ALBARRAN MD Apr 20, 2024 18:46
[2024-04-20] MEDS: DIGOXIN (250MCG/ML) 2 ML AMPULE IV ONE (18:54)
[2024-04-20] MEDS: MYCOPHENOLATE 500 MG TAB PO SCH (21:26)
[2024-04-21] VITALS (13 sets, daily range): BP systolic 115–136; BP diastolic 58–76; PULSE 102–113; RESP 17–21; TEMP 98.5–99.4; O2SAT 94–99
--- NOTE | 2024-04-21 00:05 | DVHINCON2 ---
Family History: Cerebrovascular accident (CVA) G8 FATHER Diabetes mellitus G8 MOTHER FHx: cancer G8 MOTHER Allergies: Coded Allergies: No Known Drug Allergy (Verified Allergy, Unknown, 08/25/15) Home Meds Active Scripts Amoxicillin & Pot Clavulanate (AUGMENTIN TABLET) 875 Mg Tb, 875 MG PO BID for 10 Days, #20 TAB Prov:SANDY HEWITT MD 03/14/24 Apixaban Base (ELIQUIS) 2.5 Mg Tab, 2.5 MG PO BID for 30 Days, #60 TAB Prov:SANDY HEWITT MD 03/14/24 Hydrocodone-Acetaminophen (Hydrocodone Bitartrate/AC 5-325 mg) 1 Tab Tab, 1 TAB PO Q8HPRN PRN, #14 TAB Prov:HERRERA ENRIQUEZ MD 03/09/24 Calcium Citrate-Vitamin D (Calcitrate Plus D 315-200 mg-Unit) 1 Tab Tab, 1 TAB PO BID, #90 TAB Prov:HERRERA ENRIQUEZ MD 03/09/24 Cyclobenzaprine Hcl (Cyclobenzaprine Hcl) 5 Mg Tab, 1 TAB PO TID, #30 TAB Prov:HERRERA ENRIQUEZ MD 03/09/24 Reported Medications Hydrochlorothiazide (Hydrochlorothiazide) 12.5 Mg Cap, 12.5 MG PO DAILY, CAP 03/13/24 Losartan Potassium (Losartan Potassium) 50 Mg Tab, 50 MG PO DAILY, MG 03/13/24 Amlodipine Besylate (Amlodipine Besylate) 10 Mg Tab, 10 MG PO DAILY, TAB 03/13/24 Metoprolol Tartrate (Lopressor) 25 Mg Tb, 25 MG PO Q12HR, TAB 03/13/24 Nateglinide (Nateglinide) 120 Mg Tab, 120 MG PO TIDWM, TAB 03/13/24 Insulin Lispro (Humalog Kwikpen) 100 Unit/Ml Inj, 5 UNIT SC AC, INJ 03/13/24 Everolimus (Everolimus) 0.5 Mg Tab, 4 TAB PO BIDAC, TAB 03/13/24 Prednisone (Prednisone) 2.5 Mg Tab, 2.5 MG PO TID, TAB 03/13/24 Mycophenolate Mofetil (Mycophenolate Mofetil) 250 Mg Cap, 500 MG PO BID, CAP 03/13/24 Tamsulosin Hcl (Tamsulosin Hcl) 0.4 Mg Cap, 0.8 MG PO QPM for 30 Days, MG 12/31/16 Pantoprazole Sodium (PANTOPRAZOLE SODIUM) 40 Mg Inj, 40 MG PO DAILY, INJ 12/31/16 Multiple Vitamin (Multivitamins) Cap, 1 CAP PO DAILY, #30 CAP 3 Refills 12/31/16 Insulin Detemir (Levemir Flextouch) 100 Unit/Ml Inj, 20 UNIT SC HS, INJ 12/31/16 Gabapentin (Gabapentin) 100 Mg Cap, 100 MG PO BID 12/31/16 Finasteride (Finasteride) 5 Mg Tab, 5 MG PO HS for 30 Days, MG 12/31/16 Entecavir Monohydrate (Entecavir) 0.5 Mg Tab, 0.5 MG PO Q72HR, TAB 12/31/16 Atorvastatin Calcium (ATORVASTATIN CALCIUM) 20 Mg Tab, 20 MG PO HS, TAB 12/31/16 Current Medications Current Medications Medications (Trade) Dose Ordered Sig/Anish Route PRN Reason Start Time Stop Time Status Last Admin Finasteride (Proscar Tablet) 5 mg DAILY PO 04/20/24 10:00 04/20/24 10:26 Mycophenolate Mofetil (Cellcept) 1,000 mg BID PO 04/20/24 22:00 04/20/24 21:26 Vital Signs Vital Signs Date Time Temp Pulse Resp B/P (MAP) Pulse Ox O2 Delivery O2 Flow Rate FiO2 04/20/24 21:17 112 141/77 04/20/24 21:00 99.5 20 98 99.5 04/20/24 20:00 Nasal Cannula* 2 28 Labs/Diagnostic Data Labs Test 04/20/24 20:46 04/20/24 06:43 04/19/24 15:30 04/19/24 06:14 Range/Units POC Glucose 133 H 70-106 mg/dl White Blood Count 5.3 4.4-10.8 10^3/uL Red Blood Count 3.99 L 4.5-5.90 10^6/uL Hemoglobin 8.8 L 13.5-17.5 g/dL Hematocrit 27.7 L 41.0-53.0 % Mean Corpuscular Volume 69.4 L 80.0-100.0 fL Mean Corpuscular Hemoglobin 21.9 L 28.0-32.0 pg Mean Corpuscular Hemoglobin Concent 31.6 L 32.0-36.0 g/dL Red Cell Distribution Width 30.1 H 11.8-14.3 % Platelet Count 189 140-450 10^3/uL Mean Platelet Volume 8.5 6.9-10.8 fL Neutrophils (%) (Auto) 57.9 37.0-80.0 % Lymphocytes (%) (Auto) 30.1 10.0-50.0 % Monocytes (%) (Auto) 10.3 0.0-12.0 % Eosinophils (%) (Auto) 0.9 0.0-7.0 % Basophils (%) (Auto) 0.8 0.0-2.0 % Neutrophils # (Auto) 3.1 1.6-8.6 10 ^3/uL Lymphocytes # (Auto) 1.6 0.4-5.4 10 ^3/uL Monocytes # (Auto) 0.6 0-1.3 10 ^3/uL Eosinophils # (Auto) 0 0-0.8 10 ^3/uL Basophils # (Auto) 0 0-0.2 10 ^3/uL Nucleated Red Blood Cells 0.2 % Platelet Estimate Adequate Hypochromasia (manual) Slight Anisocytosis (manual) Moderate Microcytosis Moderate Ovalocytes Few Dona Cells Few Schistocytes Moderate Sodium Level 142 136-145 mmol/L Potassium Level 4.0 3.5-5.1 mmol/L Chloride Level 111 H 98-107 mmol/L Carbon Dioxide Level 21 20-31 mmol/L Anion Gap 10 5-15 Blood Urea Nitrogen 23 9-23 mg/dL Creatinine 2.30 H 0.700-1.30 mg/dL Glomerular Filtration Rate Calc 28 >90 mL/min BUN/Creatinine Ratio 10.0 10.0-20.0 Serum Glucose 122 H 74-106 mg/dL Calcium Level 8.8 8.7-10.4 mg/dL Urine Color Light-orange Yellow Urine Clarity Ex.turbid Clear Urine pH 5.5 5.0-9.0 Urine Specific [place] 1.015 1.001-1.035 Urine Protein 2+ H Negative Urine Ketones Trace Negative Urine Blood 2+ H Negative /uL Urine Nitrite Negative Negative Urine Bilirubin Negative Negative Urine Urobilinogen Normal Negative mg/dL Urine Leukocyte Esterase 3+ Negative /uL Urine RBC 183 0 - 3 /hpf Urine WBC 625 0 - 3 /hpf Urine WBC Clumps Present None Seen /hpf Urine Squamous Epithelial Cells Few <5 /hpf Urine Bacteria Mod H None Seen /hpf Urine Mucus Few None Seen Urine Glucose Trace Normal mg/dL Magnesium Level 1.5 L 1.6-2.6 mg/dL Total Bilirubin 0.3 0.2-1.0 mg/dL Aspartate Amino Transferase (AST) 20 13-40 U/L Alanine Aminotransferase (ALT) 16 7-40 U/L Alkaline Phosphatase 79 46-116 U/L Total Protein 5.4 L 5.7-8.2 g/dL Albumin 3.1 L 3.2-4.8 g/dL Test 04/18/24 04:30 04/15/24 10:30 04/13/24 05:03 04/12/24 14:50 Range/Units Stool Occult Blood Neg x1 Negative Stool Occult Blood Sample #3 Negative Urine Creatinine 94.09 30.0-125.0 mg/dL Urine Protein/Creatinine Ratio 2.30 Urine Sodium 64 40-220 mmol/L Urine Total Protein 216.7 H 1-14 mg/dL Large Platelets Few Poikilocytosis (manual) Slight Hemoglobin A1c 8.5 H <5.7 % A1C Test 04/12/24 02:00 04/11/24 17:51 04/11/24 15:46 Range/Units Iron Level 33 L 65-175 ug/dL Total Iron Binding Capacity 167 L 250-425 ug/dL Percent Iron Saturation 19.8 L 20-55 % Ferritin 646.4 H 22-322 ng/mL Vitamin B12 Level 784 211-911 pg/mL Lactic Acid Level 1.2 0.4-2.0 mmol/L Troponin I High Sensitivity 14 </=54 ng/L B-Type Natriuretic Peptide 106.31 0-100 pg/mL Lipase 35 12-53 U/L Microbiology Date/Time Source Procedure Growth Status 04/19/24 15:30 Urine - Catheterized Urine Culture - Preliminary Resulted 04/19/24 14:33 Blood Blood Culture - Preliminary NO GROWTH AFTER 24 HOURS OF INCUBATION. Resulted 04/14/24 23:25 Catheter Site Gram Stain - Final Complete 04/14/24 23:25 Catheter Site Wound Culture - Final Complete MARISOL DE PAZ MD Apr 21, 2024 00:05
[2024-04-21 07:13] LABS: Anion Gap 10 (5-15); Carbon Dioxide 22 mmol/L (20-31); Potassium 4.3 mmol/L (3.5-5.1); Sodium 141 mmol/L (136-145)
[2024-04-21 07:15] LABS: Calcium 8.9 mg/dL (8.7-10.4); Chloride 109 mmol/L (98-107)
[2024-04-21 07:19] LABS: BUN/Creatinine Ratio 9.8 (10.0-20.0)
[2024-04-21 07:24] LABS: Blood Urea Nitrogen 24 mg/dL (9-23); Glucose 164 mg/dL (74-106)
--- NOTE | 2024-04-21 11:29 | DVHPN2 ---
Progress Note Date Seen: Apr 21, 2024 Medical Necessity Reason Pt with a Central, PICC or Fol: No Subjective Other Systems: Patient seen and examined by myself today in follow-up O2 nasal cannula Objective vital signs Vital Sign Date Time Temp Pulse Resp B/P (MAP) Pulse Ox O2 Delivery O2 Flow Rate FiO2 04/21/24 10:35 103 132/74 04/21/24 09:58 20 97 2.0 04/21/24 09:00 98.7 98.7 04/21/24 08:15 Nasal Cannula* 28 Total Intake and Output 04/20/24 04/20/24 04/21/24 15:00 23:00 07:00 Intake Total 600 ml 1920 ml Output Total 400 ml 2900 ml Balance 200 ml -980 ml medications Current Medications Medications Dose Ordered Sig/Anish Route Start Time Stop Time Status Last Admin Dose Admin Metoprolol Tartrate 2.5 mg Q6HPRN PRN IV 04/12/24 00:45 04/15/24 02:24 2.5 MG Ondansetron HCl 4 mg Q6HPRN PRN IV 04/12/24 01:45 04/12/24 18:21 4 MG Morphine Sulfate 2 mg Q6HPRN PRN IV 04/12/24 01:45 04/12/24 18:22 2 MG Acetaminophen 650 mg Q6HPRN PRN PO 04/12/24 01:45 04/19/24 12:07 650 MG Acetaminophen/ Hydrocodone Bitart 1 tab Q6HPRN PRN PO 04/12/24 01:45 04/12/24 10:47 1 TAB Diagnostic Test (Pha) 1 strip ACHS 04/12/24 07:00 04/21/24 06:09 1 STRIP Insulin Human Regular AC SC 04/12/24 17:00 04/21/24 06:10 3 UNITS Dextrose 50 ml UD PRN IV 04/12/24 15:45 Tamsulosin HCl 0.4 mg QPM PO 04/12/24 18:00 04/20/24 18:55 0.4 MG Patient Own Medication 1 gm Q8HR IV 04/14/24 17:30 UNV Hydralazine HCl 10 mg Q6HP PRN IV 04/14/24 17:45 04/14/24 17:54 10 MG Lactulose 30 ml Q8HPRN PO 04/15/24 22:00 Hold Docusate Sodium 100 mg BID PO 04/15/24 22:00 04/21/24 10:33 100 MG Sennosides 17.2 mg HS PO 04/15/24 22:00 04/20/24 21:16 17.2 MG Amiodarone HCl 400 mg Q12HR PO 04/18/24 22:00 04/21/24 10:35 400 MG Levalbuterol HCl 0.625 mg Q6HPRN PRN NEB 04/18/24 13:30 Patient Own Medication 4 tab BIDAC PO 04/19/24 17:00 04/21/24 06:04 4 TAB Finasteride 5 mg DAILY PO 04/20/24 10:00 04/21/24 10:33 5 MG Mycophenolate Mofetil 1,000 mg BID PO 04/20/24 22:00 04/21/24 10:35 1,000 MG Metoprolol Tartrate 25 mg TID PO 04/21/24 14:00 UNV laboratory and microbiology Laboratory Tests 04/21/24 06:30 04/20/24 06:43 Test 04/21/24 06:30 Range/Units Serum Glucose 164 H 74-106 mg/dL Microbiology Date/Time Source Procedure Growth Status 04/19/24 15:30 Urine - Catheterized Urine Culture - Final Complete 04/19/24 14:33 Blood Blood Culture - Preliminary NO GROWTH AFTER 24 HOURS OF INCUBATION. Resulted 04/14/24 23:25 Catheter Site Gram Stain - Final Complete 04/14/24 23:25 Catheter Site Wound Culture - Final Complete Problem List/Assessment/Plan Problem List/Assessment/Plan DAX on CKD stage IV likely hemodynamically mediated in setting of sepsis Lung transplant Bladder mass 7 cm Sepsis due to UTI/ESBL Atrial fibrillation with RVR Syncopal episode Diabetes mellitus type 2 Hypotension Sepsis Recommendations Kidney function kidney function stabilize stage IV Increased urine output Strict I&Os Renal diet IV antibiotic per ID consultt Insulin sliding scale Pulmonary consult Urology consult We will continue to follow up Plan discussed with: Patient Dietary Evaluation Review Comments: 1) Consider a Renal Specific K2,low phos 2gmNa, 60gPro/CCHO diet 2) Continue current plan of care Expected Outcomes/Goals: F/U in 3-5 days CC Plasma Assessment Blood Product Administration S: [id number] SUDEEP GUILLEN MD Apr 21, 2024 11:29
--- NOTE | 2024-04-21 13:14 | DVHPN2 ---
Progress Note - Dictate Date Seen: Apr 21, 2024 Medical Necessity Reason Pt with a Central, PICC or Fol: No Subjective Comfortable in bed. No acute distress noted. On baseline couple of L of oxygen via nasal cannula. Patient feels very weak and deconditioned. Heart rate in the low 100s remains in AFib. vital signs Vital Sign Date Time Temp Pulse Resp B/P (MAP) Pulse Ox O2 Delivery O2 Flow Rate FiO2 04/21/24 13:00 98.5 110 20 115/76 (89) 95 98.5 04/21/24 10:00 Nasal Cannula* 2 28 Total Intake and Output 04/20/24 04/20/24 04/21/24 15:00 23:00 07:00 Intake Total 600 ml 1920 ml Output Total 400 ml 2900 ml Balance 200 ml -980 ml medications Current Medications Medications Dose Ordered Sig/Anish Route Start Time Stop Time Status Last Admin Dose Admin Metoprolol Tartrate 2.5 mg Q6HPRN PRN IV 04/12/24 00:45 04/15/24 02:24 2.5 MG Ondansetron HCl 4 mg Q6HPRN PRN IV 04/12/24 01:45 04/12/24 18:21 4 MG Morphine Sulfate 2 mg Q6HPRN PRN IV 04/12/24 01:45 04/12/24 18:22 2 MG Acetaminophen 650 mg Q6HPRN PRN PO 04/12/24 01:45 04/19/24 12:07 650 MG Acetaminophen/ Hydrocodone Bitart 1 tab Q6HPRN PRN PO 04/12/24 01:45 04/12/24 10:47 1 TAB Diagnostic Test (Pha) 1 strip ACHS 04/12/24 07:00 04/21/24 11:30 1 STRIP Insulin Human Regular AC SC 04/12/24 17:00 04/21/24 12:23 3 UNITS Dextrose 50 ml UD PRN IV 04/12/24 15:45 Tamsulosin HCl 0.4 mg QPM PO 04/12/24 18:00 04/20/24 18:55 0.4 MG Patient Own Medication 1 gm Q8HR IV 04/14/24 17:30 UNV Hydralazine HCl 10 mg Q6HP PRN IV 04/14/24 17:45 04/14/24 17:54 10 MG Docusate Sodium 100 mg BID PO 04/15/24 22:00 04/21/24 10:33 100 MG Sennosides 17.2 mg HS PO 04/15/24 22:00 04/20/24 21:16 17.2 MG Amiodarone HCl 400 mg Q12HR PO 04/18/24 22:00 04/21/24 10:35 400 MG Levalbuterol HCl 0.625 mg Q6HPRN PRN NEB 04/18/24 13:30 Patient Own Medication 4 tab BIDAC PO 04/19/24 17:00 04/21/24 06:04 4 TAB Finasteride 5 mg DAILY PO 04/20/24 10:00 04/21/24 10:33 5 MG Mycophenolate Mofetil 1,000 mg BID PO 04/20/24 22:00 04/21/24 10:35 1,000 MG Metoprolol Tartrate 25 mg TID PO 04/21/24 14:00 objective Alert awake oriented x3. HEENT: neck supple no JVD poor dentition. CVS: heart tachycardia S1 plus S2. Pulmonary: lungs fair air movement without rales wheezes. GI: abdomen soft nontender positive bowel sounds. extremities no edema positive pulses. neurologically no deficits laboratory and microbiology Laboratory Tests 04/21/24 06:30 04/20/24 06:43 Test 04/21/24 06:30 Range/Units Serum Glucose 164 H 74-106 mg/dL Assessment/Plan Patient remains in atrial fibrillation at rest heart rate in the low 100s. Patient remains asymptomatic. To continue current amiodarone and metoprolol we will be increased to 3 times a day. Continue current antibiotic. I will give him incentive spirometry today. Continue physical therapy. Given chronic atrial fibrillation I will put him on anticoagulation for stroke prevention with oral Eliquis. Yesterday patient's daughter wanted him to be transferred to [facility] level of care for lungs transplant evaluation and follow up. 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 This is discussed at length with the patient's daughter. However she wants us to inquire about transfer to higher level of care. Therefore we have placed a social Service consultation and apparently per social service coordinator hospital at full capacity and also given a no acute lung issures or transplant issues they want him to be followed up as an outpatient basis rather than inpatient transfer. Otherwise follow clinical management per clinical course. Discussed with the patient's nurse regarding care plan. Problems(with codes): (1) Unqju-kj-qsroruh kidney injury (2) Atrial fibrillation with RVR (3) Diabetes mellitus (4) Weakness (5) Hypoglycemia Dietary Evaluation Review Comments: 1) Consider a Renal Specific K2,low phos 2gmNa, 60gPro/CCHO diet 2) Continue current plan of care Expected Outcomes/Goals: F/U in 3-5 days Plan discussed with: Patient CC Plasma Assessment Blood Product Administration S: [id number] HERRERA ENRIQUEZ MD Apr 21, 2024 13:14
[2024-04-21] MEDS: METOPROLOL TARTRATE 25 MG TAB PO SCH (14:00)
--- NOTE | 2024-04-21 14:02 | DVHPN2 ---
Progress Note - Dictate Date Seen: Apr 21, 2024 Has the PT tested + for MRSA If YES, has PT been informed?: No Medical Necessity Reason Pt with a Central, PICC or Fol: No Subjective seen and examined at bedside no chest pain no worsening sob on and off palpitation vital signs Vital Sign Date Time Temp Pulse Resp B/P (MAP) Pulse Ox O2 Delivery O2 Flow Rate FiO2 04/21/24 13:00 98.5 110 20 115/76 (89) 95 98.5 04/21/24 10:00 Nasal Cannula* 2 28 Total Intake and Output 04/20/24 04/20/24 04/21/24 15:00 23:00 07:00 Intake Total 600 ml 1920 ml Output Total 400 ml 2900 ml Balance 200 ml -980 ml medications Current Medications Medications Dose Ordered Sig/Anish Route Start Time Stop Time Status Last Admin Dose Admin Metoprolol Tartrate 2.5 mg Q6HPRN PRN IV 04/12/24 00:45 04/15/24 02:24 2.5 MG Ondansetron HCl 4 mg Q6HPRN PRN IV 04/12/24 01:45 04/12/24 18:21 4 MG Morphine Sulfate 2 mg Q6HPRN PRN IV 04/12/24 01:45 04/12/24 18:22 2 MG Acetaminophen 650 mg Q6HPRN PRN PO 04/12/24 01:45 04/19/24 12:07 650 MG Acetaminophen/ Hydrocodone Bitart 1 tab Q6HPRN PRN PO 04/12/24 01:45 04/12/24 10:47 1 TAB Diagnostic Test (Pha) 1 strip ACHS 04/12/24 07:00 04/21/24 11:30 1 STRIP Insulin Human Regular AC SC 04/12/24 17:00 04/21/24 12:23 3 UNITS Dextrose 50 ml UD PRN IV 04/12/24 15:45 Tamsulosin HCl 0.4 mg QPM PO 04/12/24 18:00 04/20/24 18:55 0.4 MG Patient Own Medication 1 gm Q8HR IV 04/14/24 17:30 UNV Hydralazine HCl 10 mg Q6HP PRN IV 04/14/24 17:45 04/14/24 17:54 10 MG Docusate Sodium 100 mg BID PO 04/15/24 22:00 04/21/24 10:33 100 MG Sennosides 17.2 mg HS PO 04/15/24 22:00 04/20/24 21:16 17.2 MG Amiodarone HCl 400 mg Q12HR PO 04/18/24 22:00 04/21/24 10:35 400 MG Levalbuterol HCl 0.625 mg Q6HPRN PRN NEB 04/18/24 13:30 Patient Own Medication 4 tab BIDAC PO 04/19/24 17:00 04/21/24 06:04 4 TAB Finasteride 5 mg DAILY PO 04/20/24 10:00 04/21/24 10:33 5 MG Mycophenolate Mofetil 1,000 mg BID PO 04/20/24 22:00 04/21/24 10:35 1,000 MG Metoprolol Tartrate 25 mg TID PO 04/21/24 14:00 Apixaban 2.5 mg BID PO 04/21/24 22:00 objective HEENT - no jvd CHEST - B/L AE decreased CVS - normal S1 & S2 tachycardic, EXT - edema laboratory and microbiology Laboratory Tests 04/21/24 06:30 04/20/24 06:43 Test 04/21/24 06:30 Range/Units Serum Glucose 164 H 74-106 mg/dL Assessment/Plan ASSESSMENT: * Syncope, likely secondary to hypotension. * Hypotension, resolved. * Atrial fibrillation with rapid ventricular response - currently in sinus tachycardia, likely 2/2 underlying infection * Sepsis * History of diabetes. * History of hypertension. * Chronic kidney disease. * Chronic obstructive pulmonary disease. * History of lung transplant * Severe anemia. RECOMMENDATIONS: * Continue po amiodarone * cont bblocker * treat underlying infection * Monitor electrolytes and renal function closely. * anticoagulation for now given severe anemia. * Continue telemetry monitoring. Dietary Evaluation Review Comments: 1) Consider a Renal Specific K2,low phos 2gmNa, 60gPro/CCHO diet 2) Continue current plan of care Expected Outcomes/Goals: F/U in 3-5 days Plan discussed with: Patient CC Plasma Assessment Blood Product Administration S: [id number] CIERRA MEIER MD Apr 21, 2024 14:02
--- NOTE | 2024-04-21 16:34 | DVH ---
BILATERAL LOWER EXTREMITY VENOUS DOPPLER CLINICAL HISTORY: leg pain Technique: Duplex Doppler evaluation of the deep venous systems of both lower extremities from the co mmon femoral veins to the popliteal veins including color Doppler and spectral/pulsed waveform analys is was performed. COMPARISON: US BILAT LOWER DVT on DOS: 03/07/24, BLDVT on DOS: 03/24/22 FINDINGS: The right and left common femoral, superficial femoral, popliteal, posterior tibial veins appear pa tent with normal augmentation, phasicity, compressibility and color-flow. IMPRESSION: 1. There is no sonographic evidence for DVT in the lower extremities. HS:Y
--- NOTE | 2024-04-21 19:00 | DVHPN2 ---
Progress Note - Dictate Date Seen: Apr 21, 2024 Has the PT tested + for MRSA If YES, has PT been informed?: No Medical Necessity Reason Pt with a Central, PICC or Fol: No Subjective Patient was sent to PT. His heart rate increased to 160 and patient complained of dizziness. On baseline couple of L of oxygen via nasal cannula. Repeat urine and blood cultures vital signs Vital Sign Date Time Temp Pulse Resp B/P (MAP) Pulse Ox O2 Delivery O2 Flow Rate FiO2 04/21/24 17:00 99.4 102 18 121/67 (85) 94 99.4 04/21/24 10:00 Nasal Cannula* 2 28 Total Intake and Output 04/20/24 04/20/24 04/21/24 15:00 23:00 07:00 Intake Total 600 ml 1920 ml Output Total 400 ml 2900 ml Balance 200 ml -980 ml medications Current Medications Medications Dose Ordered Sig/Anish Route Start Time Stop Time Status Last Admin Dose Admin Metoprolol Tartrate 2.5 mg Q6HPRN PRN IV 04/12/24 00:45 04/15/24 02:24 2.5 MG Ondansetron HCl 4 mg Q6HPRN PRN IV 04/12/24 01:45 04/12/24 18:21 4 MG Morphine Sulfate 2 mg Q6HPRN PRN IV 04/12/24 01:45 04/12/24 18:22 2 MG Acetaminophen 650 mg Q6HPRN PRN PO 04/12/24 01:45 04/19/24 12:07 650 MG Acetaminophen/ Hydrocodone Bitart 1 tab Q6HPRN PRN PO 04/12/24 01:45 04/12/24 10:47 1 TAB Diagnostic Test (Pha) 1 strip ACHS 04/12/24 07:00 04/21/24 17:00 1 STRIP Insulin Human Regular AC SC 04/12/24 17:00 04/21/24 12:23 3 UNITS Dextrose 50 ml UD PRN IV 04/12/24 15:45 Tamsulosin HCl 0.4 mg QPM PO 04/12/24 18:00 04/21/24 18:08 0.4 MG Patient Own Medication 1 gm Q8HR IV 04/14/24 17:30 UNV Hydralazine HCl 10 mg Q6HP PRN IV 04/14/24 17:45 04/14/24 17:54 10 MG Docusate Sodium 100 mg BID PO 04/15/24 22:00 04/21/24 10:33 100 MG Sennosides 17.2 mg HS PO 04/15/24 22:00 04/20/24 21:16 17.2 MG Amiodarone HCl 400 mg Q12HR PO 04/18/24 22:00 04/21/24 10:35 400 MG Levalbuterol HCl 0.625 mg Q6HPRN PRN NEB 04/18/24 13:30 Patient Own Medication 4 tab BIDAC PO 04/19/24 17:00 04/21/24 17:00 4 TAB Finasteride 5 mg DAILY PO 04/20/24 10:00 04/21/24 10:33 5 MG Mycophenolate Mofetil 1,000 mg BID PO 04/20/24 22:00 04/21/24 10:35 1,000 MG Metoprolol Tartrate 25 mg TID PO 04/21/24 14:00 04/21/24 14:00 25 MG Apixaban 2.5 mg BID PO 04/21/24 22:00 objective General: Patient appears alert, comfortable and well-appearing. HEENT: Normocephalic, atraumatic, Sclera anicteric, conjunctiva clear, No nasal discharge or congestion. Mucous membranes moist, no tonsillar erythema or exudates. Neck: No cervical lymphadenopathy or masses. No neck stiffness. Lungs: Breath sounds clear bilaterally, no wheezes, rales, or rhonchi. No use of accessory muscles or respiratory distress. Cardiovascular: Regular rate and rhythm, no murmurs, rubs, or gallops. Abdomen: Soft, non-tender, non-distended. Bowel sounds present in all quadrants. No hepatosplenomegaly or masses. Skin: No rash, petechiae, or ecchymosis. Extremities: No edema, cyanosis, or clubbing. No tenderness to palpation, erythema, or swelling in joints. No signs of deep vein thrombosis (DVT). Neurologic: Patient is alert and oriented to person, place, and time. Cranial nerves II-XII intact. Motor strength 5/5 bilaterally in all extremities. laboratory and microbiology Laboratory Tests 04/21/24 06:30 04/20/24 06:43 Test 04/21/24 06:30 Range/Units Serum Glucose 164 H 74-106 mg/dL Assessment/Plan Patient is a 78-year-old male presents with syncopal episode. Patient found to have UTI due to Klebsiella ESBL Bladder mass Atrial fibrillation with RVR Acute anemia Acute on chronic kidney injury Hypoglycemia Hypotension Syncope Recommendations: Start IV Meropenem Based on culture sensitivity Midline 04/11, Patient's urine culture came back ESBL positive. 04/19, Urine culture Preliminary: No growth monitored 04/14, Blood culture: No growth monitored. 06/20, Blood culture Preliminary: No growth monitored 04/14, Wound culture: no growth 04/14, Renal US showed: Decreased bilateral renal cortical thickness and increased echogenicity concerning for medical renal disease. 7 cm mass along the base of the urinary bladder. Consider further evaluation with cystoscopy and biopsy. Plan for cystoscopy today by urology. 04/11, Chest CT: Scattered areas of scarring in both lungs. 04/21 : bilateral lower extremity venous Doppler reviewed Thank you for opportunity to take care of this patient. Dietary Evaluation Review Comments: 1) Consider a Renal Specific K2,low phos 2gmNa, 60gPro/CCHO diet 2) Continue current plan of care Expected Outcomes/Goals: F/U in 3-5 days CC Plasma Assessment Blood Product Administration S: [id number] MARTA ALBARRAN MD Apr 21, 2024 19:00
--- NOTE | 2024-04-21 22:40 | DVHPN2 ---
Consult Progress Note Objective vital signs Vital Sign Date Time Temp Pulse Resp B/P (MAP) Pulse Ox O2 Delivery O2 Flow Rate FiO2 04/21/24 20:00 108 04/21/24 20:00 18 Nasal Cannula* 2 28 04/21/24 19:24 96 04/21/24 17:00 99.4 121/67 (85) 99.4 Total Intake and Output 04/20/24 04/20/24 04/21/24 15:00 23:00 07:00 Intake Total 600 ml 1920 ml Output Total 400 ml 2900 ml Balance 200 ml -980 ml medications Current Medications Medications Dose Ordered Sig/Anish Route Start Time Stop Time Status Last Admin Dose Admin Metoprolol Tartrate 2.5 mg Q6HPRN PRN IV 04/12/24 00:45 04/15/24 02:24 2.5 MG Ondansetron HCl 4 mg Q6HPRN PRN IV 04/12/24 01:45 04/12/24 18:21 4 MG Morphine Sulfate 2 mg Q6HPRN PRN IV 04/12/24 01:45 04/12/24 18:22 2 MG Acetaminophen 650 mg Q6HPRN PRN PO 04/12/24 01:45 04/19/24 12:07 650 MG Acetaminophen/ Hydrocodone Bitart 1 tab Q6HPRN PRN PO 04/12/24 01:45 04/12/24 10:47 1 TAB Diagnostic Test (Pha) 1 strip ACHS 04/12/24 07:00 04/21/24 17:00 1 STRIP Insulin Human Regular AC SC 04/12/24 17:00 04/21/24 12:23 3 UNITS Dextrose 50 ml UD PRN IV 04/12/24 15:45 Tamsulosin HCl 0.4 mg QPM PO 04/12/24 18:00 04/21/24 18:08 0.4 MG Patient Own Medication 1 gm Q8HR IV 04/14/24 17:30 UNV Hydralazine HCl 10 mg Q6HP PRN IV 04/14/24 17:45 04/14/24 17:54 10 MG Docusate Sodium 100 mg BID PO 04/15/24 22:00 04/21/24 10:33 100 MG Sennosides 17.2 mg HS PO 04/15/24 22:00 04/20/24 21:16 17.2 MG Amiodarone HCl 400 mg Q12HR PO 04/18/24 22:00 04/21/24 10:35 400 MG Levalbuterol HCl 0.625 mg Q6HPRN PRN NEB 04/18/24 13:30 Patient Own Medication 4 tab BIDAC PO 04/19/24 17:00 04/21/24 17:00 4 TAB Finasteride 5 mg DAILY PO 04/20/24 10:00 04/21/24 10:33 5 MG Mycophenolate Mofetil 1,000 mg BID PO 04/20/24 22:00 04/21/24 10:35 1,000 MG Metoprolol Tartrate 25 mg TID PO 04/21/24 14:00 04/21/24 14:00 25 MG Apixaban 2.5 mg BID PO 04/21/24 22:00 laboratory and microbiology Laboratory Tests 04/21/24 06:30 04/20/24 06:43 Test 04/21/24 06:30 Range/Units Serum Glucose 164 H 74-106 mg/dL Dietary Evaluation Review Comments: 1) Consider a Renal Specific K2,low phos 2gmNa, 60gPro/CCHO diet 2) Continue current plan of care Expected Outcomes/Goals: F/U in 3-5 days CC Plasma Assessment Blood Product Administration S: [id number] MARISOL DE PAZ MD Apr 21, 2024 22:40
[2024-04-21] MEDS: APIXABAN 2.5 MG TAB PO SCH (23:25)
[2024-04-22] VITALS (8 sets, daily range): BP systolic 107–137; BP diastolic 59–83; PULSE 60–114; RESP 18–20; TEMP 98.3–102; O2SAT 91–99
--- NOTE | 2024-04-22 05:23 | DVH ---
CHEST RADIOGRAPH Indication: copd Technique: Single frontal view of the chest was obtained COMPARISON: XY CHEST PORTABLE on DOS: 03/12/24, XY CHEST PORTABLE on DOS: 03/06/24, XY CHEST PORTABLE o n DOS: 03/05/24 FINDINGS: Lines and Tubes: None Lungs: Chronic scarring and fibrotic changes. Pleura: No effusion. No pneumothorax. Cardiomediastinal contours: Unremarkable Bones: Unremarkable IMPRESSION: No acute disease.
[2024-04-22 07:01] LABS: Anion Gap 13 (5-15); Carbon Dioxide 22 mmol/L (20-31); Chloride 107 mmol/L (98-107); Potassium 4.2 mmol/L (3.5-5.1); Sodium 142 mmol/L (136-145)
[2024-04-22 07:02] LABS: Calcium 9.1 mg/dL (8.7-10.4)
[2024-04-22 07:18] LABS: Glucose 142 mg/dL (74-106)
[2024-04-22 07:34] LABS: BUN/Creatinine Ratio 11.1 (10.0-20.0)
[2024-04-22 07:45] LABS: Blood Urea Nitrogen 27 mg/dL (9-23)
--- NOTE | 2024-04-22 12:21 | DVHPN2 ---
Progress Note Date Seen: Apr 22, 2024 Has the PT tested + for MRSA If YES, has PT been informed?: No Medical Necessity Reason Pt with a Central, PICC or Fol: No Subjective Patient reports: No new complaints Other Systems: Patient seen and examined by myself on follow-up today Objective vital signs Vital Sign Date Time Temp Pulse Resp B/P (MAP) Pulse Ox O2 Delivery O2 Flow Rate FiO2 04/22/24 09:00 98.3 92 18 128/61 (83) 99 98.3 04/21/24 20:00 Nasal Cannula* 2 28 Total Intake and Output 04/21/24 04/21/24 04/22/24 15:00 23:00 07:00 Intake Total 110 ml 400 ml 600 ml Balance 110 ml 400 ml 600 ml medications Current Medications Medications Dose Ordered Sig/Anish Route Start Time Stop Time Status Last Admin Dose Admin Metoprolol Tartrate 2.5 mg Q6HPRN PRN IV 04/12/24 00:45 04/15/24 02:24 2.5 MG Ondansetron HCl 4 mg Q6HPRN PRN IV 04/12/24 01:45 04/12/24 18:21 4 MG Morphine Sulfate 2 mg Q6HPRN PRN IV 04/12/24 01:45 04/12/24 18:22 2 MG Acetaminophen 650 mg Q6HPRN PRN PO 04/12/24 01:45 04/22/24 06:06 650 MG Acetaminophen/ Hydrocodone Bitart 1 tab Q6HPRN PRN PO 04/12/24 01:45 04/12/24 10:47 1 TAB Diagnostic Test (Pha) 1 strip ACHS 04/12/24 07:00 04/22/24 11:30 1 STRIP Insulin Human Regular AC SC 04/12/24 17:00 04/21/24 12:23 3 UNITS Dextrose 50 ml UD PRN IV 04/12/24 15:45 Tamsulosin HCl 0.4 mg QPM PO 04/12/24 18:00 04/21/24 18:08 0.4 MG Patient Own Medication 1 gm Q8HR IV 04/14/24 17:30 UNV Hydralazine HCl 10 mg Q6HP PRN IV 04/14/24 17:45 04/14/24 17:54 10 MG Docusate Sodium 100 mg BID PO 04/15/24 22:00 04/21/24 23:24 100 MG Sennosides 17.2 mg HS PO 04/15/24 22:00 04/21/24 23:25 17.2 MG Amiodarone HCl 400 mg Q12HR PO 04/18/24 22:00 04/22/24 11:57 400 MG Levalbuterol HCl 0.625 mg Q6HPRN PRN NEB 04/18/24 13:30 Cancel Patient Own Medication 4 tab BIDAC PO 04/19/24 17:00 04/22/24 05:55 4 TAB Finasteride 5 mg DAILY PO 04/20/24 10:00 04/22/24 11:57 5 MG Mycophenolate Mofetil 1,000 mg BID PO 04/20/24 22:00 04/21/24 23:24 1,000 MG Metoprolol Tartrate 25 mg TID PO 04/21/24 14:00 04/22/24 05:56 25 MG Apixaban 2.5 mg BID PO 04/21/24 22:00 04/22/24 11:57 2.5 MG Examination: LUNGS:Normal, CVS:Normal, MSK:Normal laboratory and microbiology Laboratory Tests 04/22/24 05:12 04/20/24 06:43 Test 04/22/24 05:12 Range/Units Serum Glucose 142 H 74-106 mg/dL Microbiology Date/Time Source Procedure Growth Status 04/19/24 15:30 Urine - Catheterized Urine Culture - Final Complete 04/19/24 14:33 Blood Blood Culture - Preliminary NO GROWTH AFTER 48 HOURS OF INCUBATION. Resulted 04/14/24 23:25 Catheter Site Gram Stain - Final Complete 04/14/24 23:25 Catheter Site Wound Culture - Final Complete Problem List/Assessment/Plan Problem List/Assessment/Plan DAX on CKD stage IV likely hemodynamically mediated in setting of sepsis Lung transplant Bladder mass 7 cm Sepsis due to UTI/ESBL Atrial fibrillation with RVR Syncopal episode Diabetes mellitus type 2 Hypotension Sepsis Fever Recommendations Kidney function kidney function stabilize stage IV Increased urine output Strict I&Os Renal diet IV antibiotic per ID consultt Insulin sliding scale Pulmonary consult Urology consult We will continue to follow up Plan discussed with: Patient Dietary Evaluation Review Comments: 1) Consider a Renal Specific K2,low phos 2gmNa, 60gPro/CCHO diet 2) Continue current plan of care Expected Outcomes/Goals: F/U in 3-5 days CC Plasma Assessment Blood Product Administration S: [id number] SUDEEP GUILLEN MD Apr 22, 2024 12:21
[2024-04-22] MEDS: ALPRAZolam 0.25 MG TAB PO SCH (14:18)
--- NOTE | 2024-04-22 16:08 | DVH ---
PROCEDURE: MRI THORACIC SPINE WITHOUT INDICATION: back pain Exam Date: 04/22/2024 03:12 PM COMPARISON: None TECHNIQUE: MRI thoracic spine without intravenous contrast. FINDINGS: The thoracic alignment is intact. There is chronic compression deformity of T7. There is an acute co mpression fracture of L1. There is mild superior endplate concavity of T2 and T3 marrow signal is di ffusely heterogeneous. There are small anterior osteophytes mid to lower thoracic levels. Partially i hector right 10th rib fracture.. The thoracic cord signal and contour appear intact. There is no sign ificant posterior disc disease, central canal or neural foraminal narrowing. The visualized paraspin al soft tissues are otherwise unremarkable. IMPRESSION: 1. Chronic compression deformity of T7. Acute compression deformity of L1. See same-day MRI of the lumbar spine for further details. 2. Diffusely heterogeneous marrow signal. Underlying marrow pathology is not excluded. 3. Mild degenerative changes of the thoracic spine. No significant central canal or neural foraminal stenosis. 4. Partially imaged right 10th rib fracture. Correlate with recent chest CT. HS:Y
--- NOTE | 2024-04-22 16:17 | DVH ---
PROCEDURE: MRI LUMBAR SPINE WO CONTRAST INDICATION: back pain Exam Date: 04/22/2024 03:26 PM COMPARISON: CT LS SPINE WO CONTRAST on DOS: 03/05/24 TECHNIQUE: MRI lumbar spine without intravenous contrast. FINDINGS: The lumbar alignment is intact. Moderate acute compression fracture of L1. Chronic compression defor mity L5. Marrow signal is heterogeneous. The visualized distal spinal cord and conus medullaris are w ithin normal limits. The conus medullaris appears to terminate within normal limits. The visualized retroperitoneal and paraspinal soft tissues are unremarkable. The following axial levels are detailed below: T12-L1: Mild retropulsion of fracture fragments into the canal. No significant central canal stenosis . [id number] bilateral neural foraminal stenosis.. L1-L2: There is a mild circumferential disc bulge associated with mild to moderate bilateral neurof oraminal stenosis. No significant central canal stenosis. L2-L3: There is a moderate circumferential disc bulge associated with mild to moderate bilateral ne uroforaminal stenosis. No significant central canal stenosis. L3-L4: There is a severe circumferential disc bulge sociated moderate to severe bilateral neurofora bashir stenosis. No significant central canal stenosis. L4-L5: There is a severe circumferential disc bulge narrowing the central canal to 8 mm with associ ated moderate to severe neuroforaminal stenosis. L5-S1: There is a moderate circumferential disc bulge associated with mild to moderate bilateral antonio roforaminal stenosis. No significant central canal stenosis. IMPRESSION: 1. Acute compression deformity of L1. Diffuse marrow edema extending to the posterior elements. An u nderlying pathologic lesion is not excluded. 2. Chronic compression deformity of L5. 3. Multilevel degenerative disease. Moderate central canal stenosis L4-5. Multilevel neural foraminal stenosis as above. 4. Heterogeneous marrow signal. HS:Y
--- NOTE | 2024-04-22 19:40 | DVHPN2 ---
Progress Note - Dictate Date Seen: Apr 22, 2024 Has the PT tested + for MRSA If YES, has PT been informed?: No Medical Necessity Reason Pt with a Central, PICC or Fol: No Subjective Patient refused wound care. Midline removed per Dr. Loaiza. catheter intact, Repeat urine and blood cultures 04/22 : chest x-ray , thoracic spine MRI and lumbar spine MRI reviewed vital signs Vital Sign Date Time Temp Pulse Resp B/P (MAP) Pulse Ox O2 Delivery O2 Flow Rate FiO2 04/22/24 18:37 98.9 04/22/24 17:16 110 20 137/63 (87) 95 04/22/24 10:00 Nasal Cannula 2.0 04/22/24 10:00 28 Total Intake and Output 04/21/24 04/21/24 04/22/24 15:00 23:00 07:00 Intake Total 110 ml 400 ml 600 ml Balance 110 ml 400 ml 600 ml medications Current Medications Medications Dose Ordered Sig/Anish Route Start Time Stop Time Status Last Admin Dose Admin Metoprolol Tartrate 2.5 mg Q6HPRN PRN IV 04/12/24 00:45 04/15/24 02:24 2.5 MG Ondansetron HCl 4 mg Q6HPRN PRN IV 04/12/24 01:45 04/12/24 18:21 4 MG Morphine Sulfate 2 mg Q6HPRN PRN IV 04/12/24 01:45 04/12/24 18:22 2 MG Acetaminophen 650 mg Q6HPRN PRN PO 04/12/24 01:45 04/22/24 17:31 650 MG Acetaminophen/ Hydrocodone Bitart 1 tab Q6HPRN PRN PO 04/12/24 01:45 04/12/24 10:47 1 TAB Diagnostic Test (Pha) 1 strip ACHS 04/12/24 07:00 04/22/24 17:06 1 STRIP Insulin Human Regular AC SC 04/12/24 17:00 04/22/24 11:30 2 UNITS Dextrose 50 ml UD PRN IV 04/12/24 15:45 Tamsulosin HCl 0.4 mg QPM PO 04/12/24 18:00 04/22/24 17:11 0.4 MG Patient Own Medication 1 gm Q8HR IV 04/14/24 17:30 UNV Hydralazine HCl 10 mg Q6HP PRN IV 04/14/24 17:45 04/14/24 17:54 10 MG Docusate Sodium 100 mg BID PO 04/15/24 22:00 04/21/24 23:24 100 MG Sennosides 17.2 mg HS PO 04/15/24 22:00 04/21/24 23:25 17.2 MG Amiodarone HCl 400 mg Q12HR PO 04/18/24 22:00 04/22/24 11:57 400 MG Levalbuterol HCl 0.625 mg Q6HPRN PRN NEB 04/18/24 13:30 Cancel Patient Own Medication 4 tab BIDAC PO 04/19/24 17:00 04/22/24 17:17 4 TAB Finasteride 5 mg DAILY PO 04/20/24 10:00 04/22/24 11:57 5 MG Mycophenolate Mofetil 1,000 mg BID PO 04/20/24 22:00 04/22/24 13:14 1,000 MG Metoprolol Tartrate 25 mg TID PO 04/21/24 14:00 04/22/24 14:19 25 MG Apixaban 2.5 mg BID PO 04/21/24 22:00 04/22/24 11:57 2.5 MG Alprazolam 0.25 mg BID PO 04/22/24 14:00 04/22/24 14:18 0.25 MG objective General: Patient appears alert, comfortable and well-appearing. HEENT: Normocephalic, atraumatic, Sclera anicteric, conjunctiva clear, No nasal discharge or congestion. Mucous membranes moist, no tonsillar erythema or exudates. Neck: No cervical lymphadenopathy or masses. No neck stiffness. Lungs: Breath sounds clear bilaterally, no wheezes, rales, or rhonchi. No use of accessory muscles or respiratory distress. Cardiovascular: Regular rate and rhythm, no murmurs, rubs, or gallops. Abdomen: Soft, non-tender, non-distended. Bowel sounds present in all quadrants. No hepatosplenomegaly or masses. Skin: No rash, petechiae, or ecchymosis. Extremities: No edema, cyanosis, or clubbing. No tenderness to palpation, erythema, or swelling in joints. No signs of deep vein thrombosis (DVT). Neurologic: Patient is alert and oriented to person, place, and time. Cranial nerves II-XII intact. Motor strength 5/5 bilaterally in all extremities. laboratory and microbiology Laboratory Tests 04/22/24 05:12 04/20/24 06:43 Test 04/22/24 05:12 Range/Units Serum Glucose 142 H 74-106 mg/dL Assessment/Plan Patient is a 78-year-old male presents with syncopal episode. Patient found to have UTI due to Klebsiella ESBL Bladder mass Atrial fibrillation with RVR Acute anemia Acute on chronic kidney injury Hypoglycemia Hypotension Syncope Recommendations: refused cystoscopy refusing SNF 04/11, Patient's urine culture came back ESBL positive. 04/19, Urine culture Preliminary: No growth monitored 04/14, Blood culture: No growth monitored. 06/20, Blood culture Preliminary: No growth monitored 04/14, Wound culture: no growth 04/14, Renal US showed: Decreased bilateral renal cortical thickness and increased echogenicity concerning for medical renal disease. 7 cm mass along the base of the urinary bladder. Consider further evaluation with cystoscopy and biopsy. Thank you for opportunity to take care of this patient. Dietary Evaluation Review Comments: 1) Consider a Renal Specific K2,low phos 2gmNa, 60gPro/CCHO diet 2) Continue current plan of care Expected Outcomes/Goals: F/U in 3-5 days Plan discussed with: Other CC Plasma Assessment Blood Product Administration S: [id number] MARTA ALBARRAN MD Apr 22, 2024 19:40
--- NOTE | 2024-04-22 19:47 | DVHPN2 ---
Progress Note - Dictate Date Seen: Apr 22, 2024 Has the PT tested + for MRSA If YES, has PT been informed?: No Medical Necessity Reason Pt with a Central, PICC or Fol: No Subjective Comfortable in bed. No acute distress noted. Patient is still having the tachycardia. court recording monitor reviewed and discussed with the recruitment specialist. tele rhythm appears patient is in sinus tachycardia from previous AFib. vital signs Vital Sign Date Time Temp Pulse Resp B/P (MAP) Pulse Ox O2 Delivery O2 Flow Rate FiO2 04/22/24 18:37 98.9 04/22/24 17:16 110 20 137/63 (87) 95 04/22/24 10:00 Nasal Cannula 2.0 04/22/24 10:00 28 Total Intake and Output 04/21/24 04/21/24 04/22/24 15:00 23:00 07:00 Intake Total 110 ml 400 ml 600 ml Balance 110 ml 400 ml 600 ml medications Current Medications Medications Dose Ordered Sig/Anish Route Start Time Stop Time Status Last Admin Dose Admin Metoprolol Tartrate 2.5 mg Q6HPRN PRN IV 04/12/24 00:45 04/15/24 02:24 2.5 MG Ondansetron HCl 4 mg Q6HPRN PRN IV 04/12/24 01:45 04/12/24 18:21 4 MG Morphine Sulfate 2 mg Q6HPRN PRN IV 04/12/24 01:45 04/12/24 18:22 2 MG Acetaminophen 650 mg Q6HPRN PRN PO 04/12/24 01:45 04/22/24 17:31 650 MG Acetaminophen/ Hydrocodone Bitart 1 tab Q6HPRN PRN PO 04/12/24 01:45 04/12/24 10:47 1 TAB Diagnostic Test (Pha) 1 strip ACHS 04/12/24 07:00 04/22/24 17:06 1 STRIP Insulin Human Regular AC SC 04/12/24 17:00 04/22/24 11:30 2 UNITS Dextrose 50 ml UD PRN IV 04/12/24 15:45 Tamsulosin HCl 0.4 mg QPM PO 04/12/24 18:00 04/22/24 17:11 0.4 MG Patient Own Medication 1 gm Q8HR IV 04/14/24 17:30 UNV Hydralazine HCl 10 mg Q6HP PRN IV 04/14/24 17:45 04/14/24 17:54 10 MG Docusate Sodium 100 mg BID PO 04/15/24 22:00 04/21/24 23:24 100 MG Sennosides 17.2 mg HS PO 04/15/24 22:00 04/21/24 23:25 17.2 MG Amiodarone HCl 400 mg Q12HR PO 04/18/24 22:00 04/22/24 11:57 400 MG Levalbuterol HCl 0.625 mg Q6HPRN PRN NEB 04/18/24 13:30 Cancel Patient Own Medication 4 tab BIDAC PO 04/19/24 17:00 04/22/24 17:17 4 TAB Finasteride 5 mg DAILY PO 04/20/24 10:00 04/22/24 11:57 5 MG Mycophenolate Mofetil 1,000 mg BID PO 04/20/24 22:00 04/22/24 13:14 1,000 MG Metoprolol Tartrate 25 mg TID PO 04/21/24 14:00 04/22/24 14:19 25 MG Apixaban 2.5 mg BID PO 04/21/24 22:00 04/22/24 11:57 2.5 MG Alprazolam 0.25 mg BID PO 04/22/24 14:00 04/22/24 14:18 0.25 MG objective Alert awake oriented x3. HEENT: neck supple no JVD poor dentition. CVS: heart tachycardia S1 plus S2. Pulmonary: lungs fair air movement without rales wheezes. GI: abdomen soft nontender positive bowel sounds. extremities no edema positive pulses. neurologically no deficits laboratory and microbiology Laboratory Tests 04/22/24 05:12 04/20/24 06:43 Test 04/22/24 05:12 Range/Units Serum Glucose 142 H 74-106 mg/dL Assessment/Plan Patient's chest x-ray no pathology. Repeat blood and urine cultures day before does not show any active infection. Patient does have midline. We will continue empiric antibiotics as he is on. We will order MRI of the lumbar and thoracic spines given his chronic back pain. Continue physical therapy. Continue current cardiac medications for heart rate control. Otherwise his further clinical management per clinical course. I will also have patient's tanbark laborer Dr. Diaz to evaluate him. We will get wound care evaluation to make sure he does not have any pressure ulcers/wounds contributing to his tachycardia. Overall prognosis remains guarded at present. Discussed with the patient and nurse regarding care plan. Dietary Evaluation Review Comments: 1) Consider a Renal Specific K2,low phos 2gmNa, 60gPro/CCHO diet 2) Continue current plan of care Expected Outcomes/Goals: F/U in 3-5 days Plan discussed with: Patient, Other CC Plasma Assessment Blood Product Administration S: [id number] HERRERA ENRIQUEZ MD Apr 22, 2024 19:47
--- NOTE | 2024-04-22 22:57 | DVHINCON2 ---
Date of service: Apr 22, 2024 Referring Physician Herrera Enriquez MD Reason for Consultation Chronic hypoxic respiratory failure, history of lung transplant. History of Present Illness A 78-year-old male man with past medical history including Lung transplant, COPD, diabetes mellitus, CKD, hypertension, and AFib, who is in poor overall health, presented to ED on 04/12/24 with c/o syncopal event approximately 30 min utes prior to arrival to the hospital. Patient had been in [facility] for management and was discharged on day of presentation. The patient went to the parking lot and had a syncopal event that was witnessed by his daughter. While in the ED patient went into SVT with heart rate of 190's, converted to atrial fibrillation with RVR, was started on Amiodarone drip per protocol. Patient denied chest pain, headaches, dizziness, N/V/D or other associated sx. Patient was admitted for further care. Pulmonary consultation is requested for evaluation and management of chronic hypoxic respiratory failure in patient w/ history of lung transplant. Review of Systems: 14-point review of systems negative unless otherwise noted above. Past Medical History: COPD, atrial fibrillation, hypertension, chronic kidney disease, NIDDM Past Surgical History: lung transplant Medications: Reviewed. Allergies: No known drug allergies. Family History: CVA, diabetes mellitus, cancer. Social History: Nonsmoker. No alcohol or illicit drug use. Family History: Cerebrovascular accident (CVA) G8 FATHER Diabetes mellitus G8 MOTHER FHx: cancer G8 MOTHER Allergies: Coded Allergies: No Known Drug Allergy (Verified Allergy, Unknown, 08/25/15) Home Meds Active Scripts Amoxicillin & Pot Clavulanate (AUGMENTIN TABLET) 875 Mg Tb, 875 MG PO BID for 10 Days, #20 TAB Prov:SANDY HEWITT MD 03/14/24 Apixaban Base (ELIQUIS) 2.5 Mg Tab, 2.5 MG PO BID for 30 Days, #60 TAB Prov:SANDY HEWITT MD 03/14/24 Hydrocodone-Acetaminophen (Hydrocodone Bitartrate/AC 5-325 mg) 1 Tab Tab, 1 TAB PO Q8HPRN PRN, #14 TAB Prov:HERRERA ENRIQUEZ MD 03/09/24 Calcium Citrate-Vitamin D (Calcitrate Plus D 315-200 mg-Unit) 1 Tab Tab, 1 TAB PO BID, #90 TAB Prov:HERRERA ENRIQUEZ MD 03/09/24 Cyclobenzaprine Hcl (Cyclobenzaprine Hcl) 5 Mg Tab, 1 TAB PO TID, #30 TAB Prov:HERRERA ENRIQUEZ MD 03/09/24 Reported Medications Hydrochlorothiazide (Hydrochlorothiazide) 12.5 Mg Cap, 12.5 MG PO DAILY, CAP 03/13/24 Losartan Potassium (Losartan Potassium) 50 Mg Tab, 50 MG PO DAILY, MG 03/13/24 Amlodipine Besylate (Amlodipine Besylate) 10 Mg Tab, 10 MG PO DAILY, TAB 03/13/24 Metoprolol Tartrate (Lopressor) 25 Mg Tb, 25 MG PO Q12HR, TAB 03/13/24 Nateglinide (Nateglinide) 120 Mg Tab, 120 MG PO TIDWM, TAB 03/13/24 Insulin Lispro (Humalog Kwikpen) 100 Unit/Ml Inj, 5 UNIT SC AC, INJ 03/13/24 Everolimus (Everolimus) 0.5 Mg Tab, 4 TAB PO BIDAC, TAB 03/13/24 Prednisone (Prednisone) 2.5 Mg Tab, 2.5 MG PO TID, TAB 03/13/24 Mycophenolate Mofetil (Mycophenolate Mofetil) 250 Mg Cap, 500 MG PO BID, CAP 03/13/24 Tamsulosin Hcl (Tamsulosin Hcl) 0.4 Mg Cap, 0.8 MG PO QPM for 30 Days, MG 12/31/16 Pantoprazole Sodium (PANTOPRAZOLE SODIUM) 40 Mg Inj, 40 MG PO DAILY, INJ 12/31/16 Multiple Vitamin (Multivitamins) Cap, 1 CAP PO DAILY, #30 CAP 3 Refills 12/31/16 Insulin Detemir (Levemir Flextouch) 100 Unit/Ml Inj, 20 UNIT SC HS, INJ 12/31/16 Gabapentin (Gabapentin) 100 Mg Cap, 100 MG PO BID 12/31/16 Finasteride (Finasteride) 5 Mg Tab, 5 MG PO HS for 30 Days, MG 12/31/16 Entecavir Monohydrate (Entecavir) 0.5 Mg Tab, 0.5 MG PO Q72HR, TAB 12/31/16 Atorvastatin Calcium (ATORVASTATIN CALCIUM) 20 Mg Tab, 20 MG PO HS, TAB 12/31/16 Current Medications Current Medications Medications (Trade) Dose Ordered Sig/Anish Route PRN Reason Start Time Stop Time Status Last Admin Alprazolam (Xanax Tablet) 0.25 mg BID PO 04/22/24 14:00 04/22/24 21:40 Vital Signs Vital Signs Date Time Temp Pulse Resp B/P (MAP) Pulse Ox O2 Delivery O2 Flow Rate FiO2 04/22/24 21:31 68 129/83 04/22/24 21:23 99.2 20 91 99.2 04/22/24 20:00 Nasal Cannula* 2 28 Physical Exam Gen.: Patient lying in bed in no apparent distress. On supplemental oxygen. Head: Normocephalic, atraumatic. Eyes: EOMI/PERRLA. Ears: Normal hearing. Normal anatomy. Neck/trachea: Trachea midline, supple. Nose: Normal external anatomy. Mouth: Moist mucous membranes. Chest: Decreased air entry bilaterally. No wheezing or rhonchi. Cardiovascular: Positive S1, positive S2. Regular rate and rhythm. Abdomen: Positive bowel sounds in all 4 quadrants. Soft, non-tender, non- distended. : Deferred. Rectal: Deferred. Skin: Warm, dry. Intact. Extremities: 2+ radial pulses bilaterally. No lower extremity edema. Neuro: Awake, alert, oriented x3. No gross motor or sensory deficits. Cranial nerves II through XII intact. Gait not assessed. Labs/Diagnostic Data Labs Test 04/22/24 20:52 04/22/24 05:12 04/20/24 06:43 04/19/24 15:30 Range/Units POC Glucose 98 70-106 mg/dl Sodium Level 142 136-145 mmol/L Potassium Level 4.2 3.5-5.1 mmol/L Chloride Level 107 98-107 mmol/L Carbon Dioxide Level 22 20-31 mmol/L Anion Gap 13 5-15 Blood Urea Nitrogen 27 H 9-23 mg/dL Creatinine 2.44 H 0.700-1.30 mg/dL Glomerular Filtration Rate Calc 26 >90 mL/min BUN/Creatinine Ratio 11.1 10.0-20.0 Serum Glucose 142 H 74-106 mg/dL Calcium Level 9.1 8.7-10.4 mg/dL Thyroid Stimulating Hormone (TSH) 1.78 0.55-4.78 uIU/mL Free Thyroxine (T4) Calculated 1.21 0.89-1.76 ng/dL White Blood Count 5.3 4.4-10.8 10^3/uL Red Blood Count 3.99 L 4.5-5.90 10^6/uL Hemoglobin 8.8 L 13.5-17.5 g/dL Hematocrit 27.7 L 41.0-53.0 % Mean Corpuscular Volume 69.4 L 80.0-100.0 fL Mean Corpuscular Hemoglobin 21.9 L 28.0-32.0 pg Mean Corpuscular Hemoglobin Concent 31.6 L 32.0-36.0 g/dL Red Cell Distribution Width 30.1 H 11.8-14.3 % Platelet Count 189 140-450 10^3/uL Mean Platelet Volume 8.5 6.9-10.8 fL Neutrophils (%) (Auto) 57.9 37.0-80.0 % Lymphocytes (%) (Auto) 30.1 10.0-50.0 % Monocytes (%) (Auto) 10.3 0.0-12.0 % Eosinophils (%) (Auto) 0.9 0.0-7.0 % Basophils (%) (Auto) 0.8 0.0-2.0 % Neutrophils # (Auto) 3.1 1.6-8.6 10 ^3/uL Lymphocytes # (Auto) 1.6 0.4-5.4 10 ^3/uL Monocytes # (Auto) 0.6 0-1.3 10 ^3/uL Eosinophils # (Auto) 0 0-0.8 10 ^3/uL Basophils # (Auto) 0 0-0.2 10 ^3/uL Nucleated Red Blood Cells 0.2 % Platelet Estimate Adequate Hypochromasia (manual) Slight Anisocytosis (manual) Moderate Microcytosis Moderate Ovalocytes Few Parthenon Cells Few Schistocytes Moderate Urine Color Light-orange Yellow Urine Clarity Ex.turbid Clear Urine pH 5.5 5.0-9.0 Urine Specific [place] 1.015 1.001-1.035 Urine Protein 2+ H Negative Urine Ketones Trace Negative Urine Blood 2+ H Negative /uL Urine Nitrite Negative Negative Urine Bilirubin Negative Negative Urine Urobilinogen Normal Negative mg/dL Urine Leukocyte Esterase 3+ Negative /uL Urine RBC 183 0 - 3 /hpf Urine WBC 625 0 - 3 /hpf Urine WBC Clumps Present None Seen /hpf Urine Squamous Epithelial Cells Few <5 /hpf Urine Bacteria Mod H None Seen /hpf Urine Mucus Few None Seen Urine Glucose Trace Normal mg/dL Test 04/19/24 06:14 04/18/24 04:30 04/15/24 10:30 04/13/24 05:03 Range/Units Magnesium Level 1.5 L 1.6-2.6 mg/dL Total Bilirubin 0.3 0.2-1.0 mg/dL Aspartate Amino Transferase (AST) 20 13-40 U/L Alanine Aminotransferase (ALT) 16 7-40 U/L Alkaline Phosphatase 79 46-116 U/L Total Protein 5.4 L 5.7-8.2 g/dL Albumin 3.1 L 3.2-4.8 g/dL Stool Occult Blood Neg x1 Negative Stool Occult Blood Sample #3 Negative Urine Creatinine 94.09 30.0-125.0 mg/dL Urine Protein/Creatinine Ratio 2.30 Urine Sodium 64 40-220 mmol/L Urine Total Protein 216.7 H 1-14 mg/dL Large Platelets Few Poikilocytosis (manual) Slight Test 04/12/24 14:50 04/12/24 02:00 04/11/24 17:51 04/11/24 15:46 Range/Units Hemoglobin A1c 8.5 H <5.7 % A1C Iron Level 33 L 65-175 ug/dL Total Iron Binding Capacity 167 L 250-425 ug/dL Percent Iron Saturation 19.8 L 20-55 % Ferritin 646.4 H 22-322 ng/mL Vitamin B12 Level 784 211-911 pg/mL Lactic Acid Level 1.2 0.4-2.0 mmol/L Troponin I High Sensitivity 14 </=54 ng/L B-Type Natriuretic Peptide 106.31 0-100 pg/mL Lipase 35 12-53 U/L Microbiology Date/Time Source Procedure Growth Status 04/19/24 15:30 Urine - Catheterized Urine Culture - Final Complete 04/19/24 14:33 Blood Blood Culture - Preliminary NO GROWTH AFTER 72 HOURS OF INCUBATION. Resulted 04/14/24 23:25 Catheter Site Gram Stain - Final Complete 04/14/24 23:25 Catheter Site Wound Culture - Final Complete Assessment Impression: Chronic hypoxic respiratory failure Dependence on supplemental oxygen Atelectasis Pleural effusion Atrial fibrillation w/ RVR Hx of lung transplant Urinary tract infection Back pain Plan: Supplemental oxygen On 2 LPM NC at baseline Titrate to keep O2 sats above 92%. AFib with RVR - currently in normal sinus rhythm. 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 Small right and trace left pleural effusions. Scattered areas of scarring in both lungs. Persistent slight mass effect upon the right heart by the inflated right lung. Coronary artery calcifications, up to moderate in the LAD. Healing moderate to marked compression fracture of L1. CXR today showed no acute disease. No pleural effusion or pneumothorax. Continue antibiotics for UTI Amiodarone PO Eliquis Wound care Pain control Avoid oversedation Monitor renal function. Monitor electrolytes. Supplement as necessary. Monitor ins and outs. DVT prophylaxis. Prognosis: Poor given patient's multiple co-morbidities. Rest of plan per hospitalist and other consultants. A total of 76 minutes of clinical care time was spent reviewing the patient record, examining the patient, making a diagnostic and therapeutic plan, discussing this plan with the medical personnel, following up on diagnostic studies and following the patient for clinical stability excluding any and all procedures. At least 50% of this time was spent in direct, [id number] contact. Thank you, Dr. Loaiza, for allowing me to participate in this patient's care. Further recommendations will depend on the patient's clinical course. Please do not hesitate to contact me if you have any questions or concerns. This medical document was created using an electronic medical record system with [employer] dictation system. Although these documentations are being carefully reviewed, there may still be some phonetic and typographical changes. The errors are purely typographical, due to imperfection on the software program, and do not reflect any compromise in the patient's medical care. Plan discussed with: Patient, Other (RN/MD Enriquez) LIOR ALVAREZ MD Apr 22, 2024 22:57
[2024-04-23] VITALS (9 sets, daily range): BP systolic 106–120; BP diastolic 48–80; PULSE 60–119; RESP 18–20; TEMP 97.9–101.5; O2SAT 95–98
[2024-04-23 07:16] LABS: Anion Gap 12 (5-15); Carbon Dioxide 21 mmol/L (20-31); Potassium 4.5 mmol/L (3.5-5.1); Sodium 140 mmol/L (136-145)
[2024-04-23 07:18] LABS: Calcium 8.8 mg/dL (8.7-10.4)
[2024-04-23 07:19] LABS: Mean Corpuscular Hemoglobin 22.2 pg (28.0-32.0); Monocytes # (auto) 0.1 10 ^3/uL (0-1.3); Monocytes % (auto) 2.7 % (0.0-12.0); Nucleated Red Blood Cells % 0.2 %
[2024-04-23 07:22] LABS: Basophils # (auto) 0.1 10 ^3/uL (0-0.2); Basophils % (auto) 1.9 % (0.0-2.0); Chloride 107 mmol/L (98-107); Eosinophils # (auto) 0 10 ^3/uL (0-0.8); Eosinophils % (auto) 0.8 % (0.0-7.0); Hematocrit 26.8 % (41.0-53.0); Hemoglobin 8.6 g/dL (13.5-17.5); Lymphocytes # (auto) 2.2 10 ^3/uL (0.4-5.4); Lymphocytes % (auto) 48.7 % (10.0-50.0); Mean Corpuscular Volume 69.5 fL (80.0-100.0); Neutrophils % (auto) 45.9 % (37.0-80.0); Platelet Count (auto) 240 10^3/uL (140-450); Red Blood Cells 3.86 10^6/uL (4.5-5.90); White Blood Cell 4.4 10^3/uL (4.4-10.8)
[2024-04-23 07:23] LABS: BUN/Creatinine Ratio 9.7 (10.0-20.0)
[2024-04-23 07:25] LABS: Blood Urea Nitrogen 25 mg/dL (9-23); Glucose 134 mg/dL (74-106); Red Cell Distribution Width 30.7 % (11.8-14.3)
[2024-04-23 08:24] LABS: Anisocytosis Moderate; Hypochromia Slight; Ovalocytes FEW; Platelet Estimate Adequate
--- NOTE | 2024-04-23 16:47 | DVHPN2 ---
Progress Note Date Seen: Apr 23, 2024 Has the PT tested + for MRSA If YES, has PT been informed?: No Medical Necessity Reason Pt with a Central, PICC or Fol: No Subjective Patient reports: No new complaints Other Systems: Patient seen and examined by myself in follow-up today Objective vital signs Vital Sign Date Time Temp Pulse Resp B/P (MAP) Pulse Ox O2 Delivery O2 Flow Rate FiO2 04/23/24 16:40 97.9 108 18 119/68 (85) 95 97.9 04/23/24 10:00 Nasal Cannula 2.0 04/23/24 10:00 28 Total Intake and Output 04/22/24 04/22/24 04/23/24 15:00 23:00 07:00 Intake Total 60 ml 392 ml 300 ml Output Total 200 ml 200 ml Balance 60 ml 192 ml 100 ml medications Current Medications Medications Dose Ordered Sig/Anish Route Start Time Stop Time Status Last Admin Dose Admin Metoprolol Tartrate 2.5 mg Q6HPRN PRN IV 04/12/24 00:45 04/15/24 02:24 2.5 MG Ondansetron HCl 4 mg Q6HPRN PRN IV 04/12/24 01:45 04/12/24 18:21 4 MG Morphine Sulfate 2 mg Q6HPRN PRN IV 04/12/24 01:45 04/12/24 18:22 2 MG Acetaminophen 650 mg Q6HPRN PRN PO 04/12/24 01:45 04/22/24 17:31 650 MG Acetaminophen/ Hydrocodone Bitart 1 tab Q6HPRN PRN PO 04/12/24 01:45 04/12/24 10:47 1 TAB Diagnostic Test (Pha) 1 strip ACHS 04/12/24 07:00 04/23/24 11:32 1 STRIP Insulin Human Regular AC SC 04/12/24 17:00 04/23/24 06:00 2 UNITS Dextrose 50 ml UD PRN IV 04/12/24 15:45 Tamsulosin HCl 0.4 mg QPM PO 04/12/24 18:00 04/22/24 17:11 0.4 MG Patient Own Medication 1 gm Q8HR IV 04/14/24 17:30 UNV Hydralazine HCl 10 mg Q6HP PRN IV 04/14/24 17:45 04/14/24 17:54 10 MG Docusate Sodium 100 mg BID PO 04/15/24 22:00 04/23/24 11:30 100 MG Sennosides 17.2 mg HS PO 04/15/24 22:00 04/22/24 21:30 17.2 MG Amiodarone HCl 400 mg Q12HR PO 04/18/24 22:00 04/23/24 11:31 400 MG Levalbuterol HCl 0.625 mg Q6HPRN PRN NEB 04/18/24 13:30 Cancel Patient Own Medication 4 tab BIDAC PO 04/19/24 17:00 04/23/24 05:54 4 TAB Finasteride 5 mg DAILY PO 04/20/24 10:00 04/23/24 11:31 5 MG Mycophenolate Mofetil 1,000 mg BID PO 04/20/24 22:00 04/23/24 11:31 1,000 MG Metoprolol Tartrate 25 mg TID PO 04/21/24 14:00 04/23/24 14:30 25 MG Apixaban 2.5 mg BID PO 04/21/24 22:00 04/23/24 11:31 2.5 MG Alprazolam 0.25 mg BID PO 04/22/24 14:00 04/23/24 11:30 0.25 MG Examination: LUNGS:Normal, CVS:Normal, MSK:Normal laboratory and microbiology Laboratory Tests 04/23/24 06:19 Test 04/23/24 06:19 Range/Units Serum Glucose 134 H 74-106 mg/dL Microbiology Date/Time Source Procedure Growth Status 04/19/24 15:30 Urine - Catheterized Urine Culture - Final Complete 04/19/24 14:33 Blood Blood Culture - Preliminary NO GROWTH AFTER 72 HOURS OF INCUBATION. Resulted 04/14/24 23:25 Catheter Site Gram Stain - Final Complete 04/14/24 23:25 Catheter Site Wound Culture - Final Complete Problem List/Assessment/Plan Problem List/Assessment/Plan DAX on CKD stage IV likely hemodynamically mediated in setting of sepsis Lung transplant Bladder mass 7 cm Sepsis due to UTI/ESBL Atrial fibrillation with RVR Syncopal episode Diabetes mellitus type 2 Hypotension Sepsis Fever Recommendations Kidney function kidney function stabilize stage IV Increased urine output Strict I&Os Renal diet IV antibiotic per ID consultt Insulin sliding scale Pulmonary consult Urology consult We will continue to follow up Plan discussed with: Patient Dietary Evaluation Review Comments: 1) Consider a Renal Specific K2,low phos 2gmNa, 60gPro/CCHO diet 2) Continue current plan of care Expected Outcomes/Goals: F/U in 3-5 days CC Plasma Assessment Blood Product Administration S: [id number] SUDEEP GUILLEN MD Apr 23, 2024 16:47
--- NOTE | 2024-04-23 21:56 | DVHPN2 ---
Progress Note - Dictate Date Seen: Apr 23, 2024 Has the PT tested + for MRSA If YES, has PT been informed?: No Medical Necessity Reason Pt with a Central, PICC or Fol: No Subjective Comfortable in bed. No acute distress noted. Sinus Tachycardia somewhat improved today. MRA of the prostate lumbar spine shows a acute on subacute L1 vertebral fracture probably contributing to his back pain and poor ambulatory status. vital signs Vital Sign Date Time Temp Pulse Resp B/P (MAP) Pulse Ox O2 Delivery O2 Flow Rate FiO2 04/23/24 21:27 99.6 04/23/24 21:00 119 19 113/48 (69) 98 04/23/24 10:00 Nasal Cannula 2.0 04/23/24 10:00 28 Total Intake and Output 04/22/24 04/22/24 04/23/24 15:00 23:00 07:00 Intake Total 60 ml 392 ml 300 ml Output Total 200 ml 200 ml Balance 60 ml 192 ml 100 ml medications Current Medications Medications Dose Ordered Sig/Anish Route Start Time Stop Time Status Last Admin Dose Admin Metoprolol Tartrate 2.5 mg Q6HPRN PRN IV 04/12/24 00:45 04/15/24 02:24 2.5 MG Ondansetron HCl 4 mg Q6HPRN PRN IV 04/12/24 01:45 04/12/24 18:21 4 MG Morphine Sulfate 2 mg Q6HPRN PRN IV 04/12/24 01:45 04/12/24 18:22 2 MG Acetaminophen 650 mg Q6HPRN PRN PO 04/12/24 01:45 04/23/24 20:27 650 MG Acetaminophen/ Hydrocodone Bitart 1 tab Q6HPRN PRN PO 04/12/24 01:45 04/12/24 10:47 1 TAB Diagnostic Test (Pha) 1 strip ACHS 04/12/24 07:00 04/23/24 17:00 1 STRIP Insulin Human Regular AC SC 04/12/24 17:00 04/23/24 17:00 3 UNITS Dextrose 50 ml UD PRN IV 04/12/24 15:45 Tamsulosin HCl 0.4 mg QPM PO 04/12/24 18:00 04/23/24 17:34 0.4 MG Patient Own Medication 1 gm Q8HR IV 04/14/24 17:30 UNV Hydralazine HCl 10 mg Q6HP PRN IV 04/14/24 17:45 04/14/24 17:54 10 MG Docusate Sodium 100 mg BID PO 04/15/24 22:00 04/23/24 11:30 100 MG Sennosides 17.2 mg HS PO 04/15/24 22:00 04/22/24 21:30 17.2 MG Amiodarone HCl 400 mg Q12HR PO 04/18/24 22:00 04/23/24 11:31 400 MG Levalbuterol HCl 0.625 mg Q6HPRN PRN NEB 04/18/24 13:30 Cancel Patient Own Medication 4 tab BIDAC PO 04/19/24 17:00 04/23/24 17:00 4 TAB Finasteride 5 mg DAILY PO 04/20/24 10:00 04/23/24 11:31 5 MG Mycophenolate Mofetil 1,000 mg BID PO 04/20/24 22:00 04/23/24 11:31 1,000 MG Metoprolol Tartrate 25 mg TID PO 04/21/24 14:00 04/23/24 14:30 25 MG Apixaban 2.5 mg BID PO 04/21/24 22:00 04/23/24 11:31 2.5 MG Alprazolam 0.25 mg BID PO 04/22/24 14:00 04/23/24 11:30 0.25 MG objective Alert awake oriented x3. HEENT: neck supple no JVD poor dentition. CVS: heart tachycardia S1 plus S2. Pulmonary: lungs fair air movement without rales wheezes. GI: abdomen soft nontender positive bowel sounds. extremities no edema positive pulses. neurologically no deficits laboratory and microbiology Laboratory Tests 04/23/24 06:19 Test 04/23/24 06:19 Range/Units Serum Glucose 134 H 74-106 mg/dL Assessment/Plan Continue present management as he is on. We will adjust his pain medications. Encouraged physical therapy as much as possible due to physical deconditioning. Discussed with the urologist regarding patient's care and Dr. Eugene Howe feels patient would benefit from cystoscopy to further find out evaluated he has any bladder tumor versus enlarged prostate. However patient declined the procedure and also due to his initial presentation with the AFib RVR and continued sinus tachycardia neurologist feels this could be done as an outpatient basis at a later time once patient recovers from acute illness. Further clinical management per clinical course and recommendations from the consultants. Problems(with codes): (1) L1 vertebral fracture (2) Pneumonia (3) SVT (supraventricular tachycardia) (4) Anemia (5) UTI (urinary tract infection) (6) [id number] kidney injury (7) Atrial fibrillation (8) Diabetes mellitus (9) Weakness Dietary Evaluation Review Comments: 1) Consider a Renal Specific K2,low phos 2gmNa, 60gPro/CCHO diet 2) Continue current plan of care Expected Outcomes/Goals: F/U in 3-5 days Plan discussed with: Other CC Plasma Assessment Blood Product Administration S: [id number] HERRERA ENRIQUEZ MD Apr 23, 2024 21:56
--- NOTE | 2024-04-23 23:19 | DVHPN2 ---
Progress Note - Dictate Date Seen: Apr 23, 2024 Has the PT tested + for MRSA If YES, has PT been informed?: No Medical Necessity Reason Pt with a Central, PICC or Fol: No Subjective Patient seen and examined at bedside. Remains on supplemental oxygen Overnight events reviewed. vital signs Vital Sign Date Time Temp Pulse Resp B/P (MAP) Pulse Ox O2 Delivery O2 Flow Rate FiO2 04/23/24 22:12 119 113/48 04/23/24 21:27 99.6 04/23/24 21:00 19 98 04/23/24 20:00 Nasal Cannula* 2 28 Total Intake and Output 04/22/24 04/22/24 04/23/24 15:00 23:00 07:00 Intake Total 60 ml 392 ml 300 ml Output Total 200 ml 200 ml Balance 60 ml 192 ml 100 ml medications Current Medications Medications Dose Ordered Sig/Anish Route Start Time Stop Time Status Last Admin Dose Admin Metoprolol Tartrate 2.5 mg Q6HPRN PRN IV 04/12/24 00:45 04/15/24 02:24 2.5 MG Ondansetron HCl 4 mg Q6HPRN PRN IV 04/12/24 01:45 04/12/24 18:21 4 MG Morphine Sulfate 2 mg Q6HPRN PRN IV 04/12/24 01:45 04/12/24 18:22 2 MG Acetaminophen 650 mg Q6HPRN PRN PO 04/12/24 01:45 04/23/24 20:27 650 MG Acetaminophen/ Hydrocodone Bitart 1 tab Q6HPRN PRN PO 04/12/24 01:45 04/12/24 10:47 1 TAB Diagnostic Test (Pha) 1 strip ACHS 04/12/24 07:00 04/23/24 22:29 1 STRIP Insulin Human Regular AC SC 04/12/24 17:00 04/23/24 17:00 3 UNITS Dextrose 50 ml UD PRN IV 04/12/24 15:45 Tamsulosin HCl 0.4 mg QPM PO 04/12/24 18:00 04/23/24 17:34 0.4 MG Patient Own Medication 1 gm Q8HR IV 04/14/24 17:30 UNV Hydralazine HCl 10 mg Q6HP PRN IV 04/14/24 17:45 04/14/24 17:54 10 MG Docusate Sodium 100 mg BID PO 04/15/24 22:00 04/23/24 11:30 100 MG Sennosides 17.2 mg HS PO 04/15/24 22:00 04/22/24 21:30 17.2 MG Amiodarone HCl 400 mg Q12HR PO 04/18/24 22:00 04/23/24 22:12 400 MG Levalbuterol HCl 0.625 mg Q6HPRN PRN NEB 04/18/24 13:30 Cancel Patient Own Medication 4 tab BIDAC PO 04/19/24 17:00 04/23/24 17:00 4 TAB Finasteride 5 mg DAILY PO 04/20/24 10:00 04/23/24 11:31 5 MG Mycophenolate Mofetil 1,000 mg BID PO 04/20/24 22:00 04/23/24 22:12 1,000 MG Metoprolol Tartrate 25 mg TID PO 04/21/24 14:00 04/23/24 22:12 25 MG Apixaban 2.5 mg BID PO 04/21/24 22:00 04/23/24 22:13 2.5 MG Alprazolam 0.25 mg BID PO 04/22/24 14:00 04/23/24 11:30 0.25 MG objective Gen.: Patient lying in bed in no apparent distress. On supplemental oxygen. Head: Normocephalic, atraumatic. Eyes: EOMI/PERRLA. Ears: Normal hearing. Normal anatomy. Neck/trachea: Trachea midline, supple. Nose: Normal external anatomy. Mouth: Moist mucous membranes. Chest: Decreased air entry bilaterally. No wheezing or rhonchi. Cardiovascular: Positive S1, positive S2. Regular rate and rhythm. Abdomen: Positive bowel sounds in all 4 quadrants. Soft, non-tender, non- distended. : Deferred. Rectal: Deferred. Skin: Warm, dry. Intact. Extremities: 2+ radial pulses bilaterally. No lower extremity edema. Neuro: Awake, alert, oriented x3. No gross motor or sensory deficits. Cranial nerves II through XII intact. Gait not assessed. laboratory and microbiology Laboratory Tests 04/23/24 06:19 Test 04/23/24 06:19 Range/Units Serum Glucose 134 H 74-106 mg/dL Assessment/Plan Impression: Chronic hypoxic respiratory failure Dependence on supplemental oxygen Atrial fibrillation w/ RVR Hx of lung transplant Urinary tract infection Events: Remains on supplemental oxygen, 2 LPM NC Taper O2 as tolerated Imaging demonstrated compression fractures of spine; compression deformity of T7; compression deformities of L1 and L5; right 10th rib fracture. Continue bronchodilators Continue antibiotics Incentive spirometry On Eliquis Wound care Labs and imaging reviewed. Rest of plan as noted below. Plan: Supplemental oxygen On 2 LPM NC at baseline Titrate to keep O2 sats above 92%. AFib with RVR - currently in normal sinus rhythm. 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 Small right and trace left pleural effusions. Scattered areas of scarring in both lungs. Persistent slight mass effect upon the right heart by the inflated right lung. Coronary artery calcifications, up to moderate in the LAD. Healing moderate to marked compression fracture of L1. CXR on 04/22 showed no acute disease. No pleural effusion or pneumothorax. Continue antibiotics for UTI Amiodarone PO Eliquis Wound care Pain control Avoid oversedation Monitor renal function. Monitor electrolytes. Supplement as necessary. Monitor ins and outs. DVT prophylaxis. Prognosis: Poor given patient's multiple co-morbidities. Rest of plan per hospitalist and other consultants. A total of 51 minutes of clinical care time was spent reviewing the patient record, examining the patient, making a diagnostic and therapeutic plan, discussing this plan with the medical personnel, following up on diagnostic studies and following the patient for clinical stability excluding any and all procedures. At least 50% of this time was spent in direct, [id number] contact. Thank you, Dr. Loaiza, for allowing me to participate in this patient's care. Further recommendations will depend on the patient's clinical course. Please do not hesitate to contact me if you have any questions or concerns. This medical document was created using an electronic medical record system with [employer] dictation system. Although these documentations are being carefully reviewed, there may still be some phonetic and typographical changes. The errors are purely typographical, due to imperfection on the software program, and do not reflect any compromise in the patient's medical care. Dietary Evaluation Review Comments: 1) Consider a Renal Specific K2,low phos 2gmNa, 60gPro/CCHO diet 2) Continue current plan of care Expected Outcomes/Goals: F/U in 3-5 days Plan discussed with: Patient, Other (RN) CC Plasma Assessment Blood Product Administration S: [id number] LIOR ALVAREZ MD Apr 23, 2024 23:18
[2024-04-24] VITALS (9 sets, daily range): BP systolic 102–127; BP diastolic 62–75; PULSE 95–112; RESP 16–20; TEMP 98.5–100.7; O2SAT 93–98
--- NOTE | 2024-04-24 14:48 | DVHPN2 ---
Progress Note Date Seen: Apr 24, 2024 Has the PT tested + for MRSA If YES, has PT been informed?: No Medical Necessity Reason Pt with a Central, PICC or Fol: No Subjective Review of Systems: RESPIRATORY:Abnormal Other Systems: Patient seen and examined by myself in follow-up today Objective vital signs Vital Sign Date Time Temp Pulse Resp B/P (MAP) Pulse Ox O2 Delivery O2 Flow Rate FiO2 04/24/24 12:38 100.0 112 18 118/75 (89) 93 100.0 04/24/24 10:21 Nasal Cannula* 2 28 Total Intake and Output 04/23/24 04/23/24 04/24/24 15:00 23:00 07:00 Intake Total 0 ml 300 ml 350 ml Balance 0 ml 300 ml 350 ml medications Current Medications Medications Dose Ordered Sig/Anish Route Start Time Stop Time Status Last Admin Dose Admin Metoprolol Tartrate 2.5 mg Q6HPRN PRN IV 04/12/24 00:45 04/15/24 02:24 2.5 MG Ondansetron HCl 4 mg Q6HPRN PRN IV 04/12/24 01:45 04/12/24 18:21 4 MG Morphine Sulfate 2 mg Q6HPRN PRN IV 04/12/24 01:45 04/12/24 18:22 2 MG Acetaminophen 650 mg Q6HPRN PRN PO 04/12/24 01:45 04/23/24 20:27 650 MG Acetaminophen/ Hydrocodone Bitart 1 tab Q6HPRN PRN PO 04/12/24 01:45 04/12/24 10:47 1 TAB Diagnostic Test (Pha) 1 strip ACHS 04/12/24 07:00 04/24/24 11:48 1 STRIP Insulin Human Regular AC SC 04/12/24 17:00 04/24/24 11:46 3 UNITS Dextrose 50 ml UD PRN IV 04/12/24 15:45 Tamsulosin HCl 0.4 mg QPM PO 04/12/24 18:00 04/23/24 17:34 0.4 MG Patient Own Medication 1 gm Q8HR IV 04/14/24 17:30 UNV Hydralazine HCl 10 mg Q6HP PRN IV 04/14/24 17:45 04/14/24 17:54 10 MG Docusate Sodium 100 mg BID PO 04/15/24 22:00 04/24/24 10:01 100 MG Sennosides 17.2 mg HS PO 04/15/24 22:00 04/22/24 21:30 17.2 MG Amiodarone HCl 400 mg Q12HR PO 04/18/24 22:00 04/24/24 10:00 400 MG Levalbuterol HCl 0.625 mg Q6HPRN PRN NEB 04/18/24 13:30 Cancel Patient Own Medication 4 tab BIDAC PO 04/19/24 17:00 04/24/24 06:37 4 TAB Finasteride 5 mg DAILY PO 04/20/24 10:00 04/24/24 10:01 5 MG Mycophenolate Mofetil 1,000 mg BID PO 04/20/24 22:00 04/24/24 10:00 1,000 MG Metoprolol Tartrate 25 mg TID PO 04/21/24 14:00 04/24/24 06:36 25 MG Apixaban 2.5 mg BID PO 04/21/24 22:00 04/24/24 10:01 2.5 MG Alprazolam 0.25 mg BID PO 04/22/24 14:00 04/24/24 10:00 0.25 MG Examination: LUNGS:Normal, CVS:Normal, MSK:Normal laboratory and microbiology Laboratory Tests 04/23/24 06:19 Test 04/23/24 06:19 Range/Units Serum Glucose 134 H 74-106 mg/dL Microbiology Date/Time Source Procedure Growth Status 04/19/24 15:30 Urine - Catheterized Urine Culture - Final Complete 04/19/24 14:33 Blood Blood Culture - Preliminary NO GROWTH AFTER 72 HOURS OF INCUBATION. Resulted 04/14/24 23:25 Catheter Site Gram Stain - Final Complete 04/14/24 23:25 Catheter Site Wound Culture - Final Complete Problem List/Assessment/Plan Problem List/Assessment/Plan DAX on CKD stage IV likely hemodynamically mediated in setting of sepsis Lung transplant Bladder mass 7 cm Sepsis due to UTI/ESBL Atrial fibrillation with RVR Syncopal episode Diabetes mellitus type 2 Hypotension Sepsis Fevers Recommendations Kidney function kidney function stabilize stage IV Increased urine output Strict I&Os Renal diet IV antibiotic per ID consultt Insulin sliding scale Pulmonary consult Urology consult We will continue to follow up Plan discussed with: Patient Dietary Evaluation Review Comments: 1) Consider a Renal Specific K2,low phos 2gmNa, 60gPro/CCHO diet 2) Continue current plan of care Expected Outcomes/Goals: F/U in 3-5 days CC Plasma Assessment Blood Product Administration S: [id number] SUDEEP GUILLEN MD Apr 24, 2024 14:48
--- NOTE | 2024-04-24 16:16 | DVHPN2 ---
Progress Note - Dictate Date Seen: Apr 24, 2024 Has the PT tested + for MRSA If YES, has PT been informed?: No Medical Necessity Reason Pt with a Central, PICC or Fol: No Subjective Comfortable in bed. No acute distress noted. Still having low-grade fever. We will therefore remove his midline that has been there for a while. He has mild erythema around the midline insertion site on the arm. We will get a peripheral line. Otherwise continue rest of supportive care and treatment as he is on. Once patient remains afebrile and heart rate improves he can be transferred to long-term facility for physical therapy. Discussed with the patient regarding care plan as well as nurse. vital signs Vital Sign Date Time Temp Pulse Resp B/P (MAP) Pulse Ox O2 Delivery O2 Flow Rate FiO2 04/24/24 16:04 112 118/75 04/24/24 16:00 100.7 04/24/24 12:38 18 93 04/24/24 10:21 Nasal Cannula* 2 28 Total Intake and Output 04/23/24 04/23/24 04/24/24 15:00 23:00 07:00 Intake Total 0 ml 300 ml 350 ml Balance 0 ml 300 ml 350 ml medications Current Medications Medications Dose Ordered Sig/Anish Route Start Time Stop Time Status Last Admin Dose Admin Metoprolol Tartrate 2.5 mg Q6HPRN PRN IV 04/12/24 00:45 04/15/24 02:24 2.5 MG Ondansetron HCl 4 mg Q6HPRN PRN IV 04/12/24 01:45 04/12/24 18:21 4 MG Morphine Sulfate 2 mg Q6HPRN PRN IV 04/12/24 01:45 04/12/24 18:22 2 MG Acetaminophen 650 mg Q6HPRN PRN PO 04/12/24 01:45 04/24/24 16:00 650 MG Acetaminophen/ Hydrocodone Bitart 1 tab Q6HPRN PRN PO 04/12/24 01:45 04/12/24 10:47 1 TAB Diagnostic Test (Pha) 1 strip ACHS 04/12/24 07:00 04/24/24 11:48 1 STRIP Insulin Human Regular AC SC 04/12/24 17:00 04/24/24 11:46 3 UNITS Dextrose 50 ml UD PRN IV 04/12/24 15:45 Tamsulosin HCl 0.4 mg QPM PO 04/12/24 18:00 04/23/24 17:34 0.4 MG Patient Own Medication 1 gm Q8HR IV 04/14/24 17:30 UNV Hydralazine HCl 10 mg Q6HP PRN IV 04/14/24 17:45 04/14/24 17:54 10 MG Docusate Sodium 100 mg BID PO 04/15/24 22:00 04/24/24 10:01 100 MG Sennosides 17.2 mg HS PO 04/15/24 22:00 04/22/24 21:30 17.2 MG Amiodarone HCl 400 mg Q12HR PO 04/18/24 22:00 04/24/24 10:00 400 MG Levalbuterol HCl 0.625 mg Q6HPRN PRN NEB 04/18/24 13:30 Cancel Patient Own Medication 4 tab BIDAC PO 04/19/24 17:00 04/24/24 06:37 4 TAB Finasteride 5 mg DAILY PO 04/20/24 10:00 04/24/24 10:01 5 MG Mycophenolate Mofetil 1,000 mg BID PO 04/20/24 22:00 04/24/24 10:00 1,000 MG Metoprolol Tartrate 25 mg TID PO 04/21/24 14:00 04/24/24 16:04 25 MG Apixaban 2.5 mg BID PO 04/21/24 22:00 04/24/24 10:01 2.5 MG Alprazolam 0.25 mg BID PO 04/22/24 14:00 04/24/24 10:00 0.25 MG objective Alert awake oriented x3. HEENT: neck supple no JVD poor dentition. CVS: heart tachycardia S1 plus S2. Pulmonary: lungs fair air movement without rales wheezes. GI: abdomen soft nontender positive bowel sounds. extremities no edema positive pulses. neurologically no deficits laboratory and microbiology Laboratory Tests 04/23/24 06:19 Test 04/23/24 06:19 Range/Units Serum Glucose 134 H 74-106 mg/dL Assessment/Plan Continue present management as he is on. We will adjust his pain medications. Encouraged physical therapy as much as possible due to physical deconditioning. Discussed with the urologist regarding patient's care and Dr. Eugene Howe feels patient would benefit from cystoscopy to further find out evaluated he has any bladder tumor versus enlarged prostate. However patient declined the procedure and also due to his initial presentation with the AFib RVR and continued sinus tachycardia neurologist feels this could be done as an outpatient basis at a later time once patient recovers from acute illness. Further clinical management per clinical course and recommendations from the consultants. Problems(with codes): (1) L1 vertebral fracture (2) Weakness (3) Diabetes mellitus (4) Atrial fibrillation with RVR (5) [id number] kidney injury (6) UTI (urinary tract infection) Dietary Evaluation Review Comments: 1) Consider a Renal Specific K2,low phos 2gmNa, 60gPro/CCHO diet 2) Continue current plan of care Expected Outcomes/Goals: F/U in 3-5 days Plan discussed with: Patient, Other CC Plasma Assessment Blood Product Administration S: [id number] HERRERA ENRIQUEZ MD Apr 24, 2024 16:16
--- NOTE | 2024-04-24 20:31 | DVHPN2 ---
Progress Note - Dictate Date Seen: Apr 23, 2024 Has the PT tested + for MRSA If YES, has PT been informed?: No Medical Necessity Reason Pt with a Central, PICC or Fol: No Subjective Patient refused wound care. Midline removed per Dr. Loaiza. catheter intact, MRA of the prostate lumbar spine shows a acute on subacute L1 vertebral fracture probably contributing to his back pain 04/22 : chest x-ray , thoracic spine MRI and lumbar spine MRI reviewed vital signs Vital Sign Date Time Temp Pulse Resp B/P (MAP) Pulse Ox O2 Delivery O2 Flow Rate FiO2 04/24/24 18:33 92 116/76 04/24/24 17:00 98.8 04/24/24 16:41 16 95 04/24/24 10:21 Nasal Cannula* 2 28 Total Intake and Output 04/23/24 04/23/24 04/24/24 15:00 23:00 07:00 Intake Total 0 ml 300 ml 350 ml Balance 0 ml 300 ml 350 ml medications Current Medications Medications Dose Ordered Sig/Anish Route Start Time Stop Time Status Last Admin Dose Admin Metoprolol Tartrate 2.5 mg Q6HPRN PRN IV 04/12/24 00:45 04/15/24 02:24 2.5 MG Ondansetron HCl 4 mg Q6HPRN PRN IV 04/12/24 01:45 04/12/24 18:21 4 MG Morphine Sulfate 2 mg Q6HPRN PRN IV 04/12/24 01:45 04/12/24 18:22 2 MG Acetaminophen 650 mg Q6HPRN PRN PO 04/12/24 01:45 04/24/24 16:00 650 MG Acetaminophen/ Hydrocodone Bitart 1 tab Q6HPRN PRN PO 04/12/24 01:45 04/12/24 10:47 1 TAB Diagnostic Test (Pha) 1 strip ACHS 04/12/24 07:00 04/24/24 16:42 1 STRIP Insulin Human Regular AC SC 04/12/24 17:00 04/24/24 11:46 3 UNITS Dextrose 50 ml UD PRN IV 04/12/24 15:45 Tamsulosin HCl 0.4 mg QPM PO 04/12/24 18:00 04/24/24 17:26 0.4 MG Patient Own Medication 1 gm Q8HR IV 04/14/24 17:30 UNV Hydralazine HCl 10 mg Q6HP PRN IV 04/14/24 17:45 04/14/24 17:54 10 MG Docusate Sodium 100 mg BID PO 04/15/24 22:00 04/24/24 10:01 100 MG Sennosides 17.2 mg HS PO 04/15/24 22:00 04/22/24 21:30 17.2 MG Amiodarone HCl 400 mg Q12HR PO 04/18/24 22:00 04/24/24 10:00 400 MG Levalbuterol HCl 0.625 mg Q6HPRN PRN NEB 04/18/24 13:30 Cancel Patient Own Medication 4 tab BIDAC PO 04/19/24 17:00 04/24/24 17:26 4 TAB Finasteride 5 mg DAILY PO 04/20/24 10:00 04/24/24 10:01 5 MG Mycophenolate Mofetil 1,000 mg BID PO 04/20/24 22:00 04/24/24 10:00 1,000 MG Metoprolol Tartrate 25 mg TID PO 04/21/24 14:00 04/24/24 16:04 25 MG Apixaban 2.5 mg BID PO 04/21/24 22:00 04/24/24 10:01 2.5 MG Alprazolam 0.25 mg BID PO 04/22/24 14:00 04/24/24 10:00 0.25 MG objective General: Patient appears alert, comfortable and well-appearing. HEENT: Normocephalic, atraumatic, Sclera anicteric, conjunctiva clear, No nasal discharge or congestion. Mucous membranes moist, no tonsillar erythema or exudates. Neck: No cervical lymphadenopathy or masses. No neck stiffness. Lungs: Breath sounds clear bilaterally, no wheezes, rales, or rhonchi. No use of accessory muscles or respiratory distress. Cardiovascular: Regular rate and rhythm, no murmurs, rubs, or gallops. Abdomen: Soft, non-tender, non-distended. Bowel sounds present in all quadrants. No hepatosplenomegaly or masses. Skin: No rash, petechiae, or ecchymosis. Extremities: No edema, cyanosis, or clubbing. No tenderness to palpation, erythema, or swelling in joints. No signs of deep vein thrombosis (DVT). Neurologic: Patient is alert and oriented to person, place, and time. Cranial nerves II-XII intact. Motor strength 5/5 bilaterally in all extremities. laboratory and microbiology Laboratory Tests 04/23/24 06:19 Test 04/23/24 06:19 Range/Units Serum Glucose 134 H 74-106 mg/dL Assessment/Plan Patient is a 78-year-old male presents with syncopal episode. Patient found to have UTI due to Klebsiella ESBL Bladder mass Atrial fibrillation with RVR Acute anemia Acute on chronic kidney injury Hypoglycemia Hypotension Syncope Recommendations: Start IV Meropenem Based on culture sensitivity Midline 04/11, Patient's urine culture came back ESBL positive. 04/19, Urine culture Preliminary: No growth monitored 04/14, Blood culture: No growth monitored. 06/20, Blood culture Preliminary: No growth monitored 04/14, Wound culture: no growth 04/14, Renal US showed: Decreased bilateral renal cortical thickness and increased echogenicity concerning for medical renal disease. 7 cm mass along the base of the urinary bladder. Consider further evaluation with cystoscopy and biopsy. Plan for cystoscopy today by urology. 04/11, Chest CT: Scattered areas of scarring in both lungs. 04/21 : bilateral lower extremity venous Doppler reviewed Thank you for opportunity to take care of this patient. Dietary Evaluation Review Comments: 1) Consider a Renal Specific K2,low phos 2gmNa, 60gPro/CCHO diet 2) Continue current plan of care Expected Outcomes/Goals: F/U in 3-5 days CC Plasma Assessment Blood Product Administration S: [id number] MARTA ALBARRAN MD Apr 24, 2024 20:31
--- NOTE | 2024-04-24 20:39 | DVHPN2 ---
Progress Note - Dictate Date Seen: Apr 24, 2024 Has the PT tested + for MRSA If YES, has PT been informed?: No Medical Necessity Reason Pt with a Central, PICC or Fol: No Subjective Patient refused wound care. Midline removed per Dr. Loaiza. catheter intact, Still having low-grade fever. He has mild erythema around the midline insertion site on the arm. We will get a peripheral line. Otherwise continue rest of supportive care and treatment as he is on. Once patient remains afebrile and heart rate improves he can be transferred to assisted facility for physical therapy. Discussed with the patient regarding care plan as well as nurse. Once patient remains afebrile and heart rate improves he can be transferred to assisted facility for physical therapy. MRA of the prostate lumbar spine shows a acute on subacute L1 vertebral fracture probably contributing to his back pain 04/22 : chest x-ray , thoracic spine MRI and lumbar spine MRI reviewed vital signs Vital Sign Date Time Temp Pulse Resp B/P (MAP) Pulse Ox O2 Delivery O2 Flow Rate FiO2 04/24/24 18:33 92 116/76 04/24/24 17:00 98.8 04/24/24 16:41 16 95 04/24/24 10:21 Nasal Cannula* 2 28 Total Intake and Output 04/23/24 04/23/24 04/24/24 15:00 23:00 07:00 Intake Total 0 ml 300 ml 350 ml Balance 0 ml 300 ml 350 ml medications Current Medications Medications Dose Ordered Sig/Anish Route Start Time Stop Time Status Last Admin Dose Admin Metoprolol Tartrate 2.5 mg Q6HPRN PRN IV 04/12/24 00:45 04/15/24 02:24 2.5 MG Ondansetron HCl 4 mg Q6HPRN PRN IV 04/12/24 01:45 04/12/24 18:21 4 MG Morphine Sulfate 2 mg Q6HPRN PRN IV 04/12/24 01:45 04/12/24 18:22 2 MG Acetaminophen 650 mg Q6HPRN PRN PO 04/12/24 01:45 04/24/24 16:00 650 MG Acetaminophen/ Hydrocodone Bitart 1 tab Q6HPRN PRN PO 04/12/24 01:45 04/12/24 10:47 1 TAB Diagnostic Test (Pha) 1 strip ACHS 04/12/24 07:00 04/24/24 16:42 1 STRIP Insulin Human Regular AC SC 04/12/24 17:00 04/24/24 11:46 3 UNITS Dextrose 50 ml UD PRN IV 04/12/24 15:45 Tamsulosin HCl 0.4 mg QPM PO 04/12/24 18:00 04/24/24 17:26 0.4 MG Patient Own Medication 1 gm Q8HR IV 04/14/24 17:30 UNV Hydralazine HCl 10 mg Q6HP PRN IV 04/14/24 17:45 04/14/24 17:54 10 MG Docusate Sodium 100 mg BID PO 04/15/24 22:00 04/24/24 10:01 100 MG Sennosides 17.2 mg HS PO 04/15/24 22:00 04/22/24 21:30 17.2 MG Amiodarone HCl 400 mg Q12HR PO 04/18/24 22:00 04/24/24 10:00 400 MG Levalbuterol HCl 0.625 mg Q6HPRN PRN NEB 04/18/24 13:30 Cancel Patient Own Medication 4 tab BIDAC PO 04/19/24 17:00 04/24/24 17:26 4 TAB Finasteride 5 mg DAILY PO 04/20/24 10:00 04/24/24 10:01 5 MG Mycophenolate Mofetil 1,000 mg BID PO 04/20/24 22:00 04/24/24 10:00 1,000 MG Metoprolol Tartrate 25 mg TID PO 04/21/24 14:00 04/24/24 16:04 25 MG Apixaban 2.5 mg BID PO 04/21/24 22:00 04/24/24 10:01 2.5 MG Alprazolam 0.25 mg BID PO 04/22/24 14:00 04/24/24 10:00 0.25 MG objective General: Patient appears alert, comfortable and well-appearing. HEENT: Normocephalic, atraumatic, Sclera anicteric, conjunctiva clear, No nasal discharge or congestion. Mucous membranes moist, no tonsillar erythema or exudates. Neck: No cervical lymphadenopathy or masses. No neck stiffness. Lungs: Breath sounds clear bilaterally, no wheezes, rales, or rhonchi. No use of accessory muscles or respiratory distress. Cardiovascular: Regular rate and rhythm, no murmurs, rubs, or gallops. Abdomen: Soft, non-tender, non-distended. Bowel sounds present in all quadrants. No hepatosplenomegaly or masses. Skin: No rash, petechiae, or ecchymosis. Extremities: No edema, cyanosis, or clubbing. No tenderness to palpation, erythema, or swelling in joints. No signs of deep vein thrombosis (DVT). Neurologic: Patient is alert and oriented to person, place, and time. Cranial nerves II-XII intact. Motor strength 5/5 bilaterally in all extremities. laboratory and microbiology Laboratory Tests 04/23/24 06:19 Test 04/23/24 06:19 Range/Units Serum Glucose 134 H 74-106 mg/dL Assessment/Plan Patient is a 78-year-old male presents with syncopal episode. Patient found to have UTI due to Klebsiella ESBL Bladder mass Atrial fibrillation with RVR Acute anemia Acute on chronic kidney injury Hypoglycemia Hypotension Syncope Recommendations: cont IV Meropenem Based on culture sensitivity Midline 04/11, Patient's urine culture came back ESBL positive. 04/19, Urine culture Preliminary: No growth monitored 04/14, Blood culture: No growth monitored. 06/20, Blood culture Preliminary: No growth monitored 04/14, Wound culture: no growth 04/14, Renal US showed: Decreased bilateral renal cortical thickness and increased echogenicity concerning for medical renal disease. 7 cm mass along the base of the urinary bladder. Consider further evaluation with cystoscopy and biopsy. refused cystoscopy .. urology. 04/11, Chest CT: Scattered areas of scarring in both lungs. 04/21 : bilateral lower extremity venous Doppler reviewed Thank you for opportunity to take care of this patient. Dietary Evaluation Review Comments: 1) Consider a Renal Specific K2,low phos 2gmNa, 60gPro/CCHO diet 2) Continue current plan of care Expected Outcomes/Goals: F/U in 3-5 days Plan discussed with: Other CC Plasma Assessment Blood Product Administration S: [id number] MARTA ALBARRAN MD Apr 24, 2024 20:39
--- NOTE | 2024-04-24 23:09 | DVHPN2 ---
Progress Note - Dictate Date Seen: Apr 24, 2024 Has the PT tested + for MRSA If YES, has PT been informed?: No Medical Necessity Reason Pt with a Central, PICC or Fol: No Subjective Patient seen and examined at bedside. Remains on supplemental oxygen Overnight events reviewed. vital signs Vital Sign Date Time Temp Pulse Resp B/P (MAP) Pulse Ox O2 Delivery O2 Flow Rate FiO2 04/24/24 21:35 104 102/62 04/24/24 19:30 18 95 Nasal Cannula* 2 28 04/24/24 17:00 98.8 Total Intake and Output 04/23/24 04/23/24 04/24/24 15:00 23:00 07:00 Intake Total 0 ml 300 ml 350 ml Balance 0 ml 300 ml 350 ml medications Current Medications Medications Dose Ordered Sig/Anish Route Start Time Stop Time Status Last Admin Dose Admin Metoprolol Tartrate 2.5 mg Q6HPRN PRN IV 04/12/24 00:45 04/15/24 02:24 2.5 MG Ondansetron HCl 4 mg Q6HPRN PRN IV 04/12/24 01:45 04/12/24 18:21 4 MG Morphine Sulfate 2 mg Q6HPRN PRN IV 04/12/24 01:45 04/12/24 18:22 2 MG Acetaminophen 650 mg Q6HPRN PRN PO 04/12/24 01:45 04/24/24 16:00 650 MG Acetaminophen/ Hydrocodone Bitart 1 tab Q6HPRN PRN PO 04/12/24 01:45 04/12/24 10:47 1 TAB Diagnostic Test (Pha) 1 strip ACHS 04/12/24 07:00 04/24/24 21:35 1 STRIP Insulin Human Regular AC SC 04/12/24 17:00 04/24/24 11:46 3 UNITS Dextrose 50 ml UD PRN IV 04/12/24 15:45 Tamsulosin HCl 0.4 mg QPM PO 04/12/24 18:00 04/24/24 17:26 0.4 MG Patient Own Medication 1 gm Q8HR IV 04/14/24 17:30 UNV Hydralazine HCl 10 mg Q6HP PRN IV 04/14/24 17:45 04/14/24 17:54 10 MG Docusate Sodium 100 mg BID PO 04/15/24 22:00 04/24/24 10:01 100 MG Sennosides 17.2 mg HS PO 04/15/24 22:00 04/22/24 21:30 17.2 MG Amiodarone HCl 400 mg Q12HR PO 04/18/24 22:00 04/24/24 21:27 400 MG Levalbuterol HCl 0.625 mg Q6HPRN PRN NEB 04/18/24 13:30 Cancel Patient Own Medication 4 tab BIDAC PO 04/19/24 17:00 04/24/24 17:26 4 TAB Finasteride 5 mg DAILY PO 04/20/24 10:00 04/24/24 10:01 5 MG Mycophenolate Mofetil 1,000 mg BID PO 04/20/24 22:00 04/24/24 21:26 1,000 MG Metoprolol Tartrate 25 mg TID PO 04/21/24 14:00 04/24/24 16:04 25 MG Apixaban 2.5 mg BID PO 04/21/24 22:00 04/24/24 21:27 2.5 MG Alprazolam 0.25 mg BID PO 04/22/24 14:00 04/24/24 21:26 0.25 MG objective Gen.: Patient lying in bed in no apparent distress. On supplemental oxygen. Head: Normocephalic, atraumatic. Eyes: EOMI/PERRLA. Ears: Normal hearing. Normal anatomy. Neck/trachea: Trachea midline, supple. Nose: Normal external anatomy. Mouth: Moist mucous membranes. Chest: Decreased air entry bilaterally. No wheezing or rhonchi. Cardiovascular: Positive S1, positive S2. Regular rate and rhythm. Abdomen: Positive bowel sounds in all 4 quadrants. Soft, non-tender, non- distended. : Deferred. Rectal: Deferred. Skin: Warm, dry. Intact. Extremities: 2+ radial pulses bilaterally. No lower extremity edema. Neuro: Awake, alert, oriented x3. No gross motor or sensory deficits. Cranial nerves II through XII intact. Gait not assessed. laboratory and microbiology Laboratory Tests 04/23/24 06:19 Test 04/23/24 06:19 Range/Units Serum Glucose 134 H 74-106 mg/dL Assessment/Plan Impression: Chronic hypoxic respiratory failure Dependence on supplemental oxygen Atelectasis Pleural effusion Atrial fibrillation w/ RVR Hx of lung transplant Urinary tract infection Back pain Events: Remains on supplemental oxygen, 2 LPM NC Taper O2 as tolerated MRI lumbar and thoracic spines showed chronic compression fracture of T7, acute L1 compressive deformity, rib fracture of right 10th rib, chronic deformity of L5, moderate central canal stenosis L4-L5. Continue antibiotics Incentive spirometry Amiodarone PO Accu-Cheks, ISS. Labs and imaging reviewed. Rest of plan as noted below. Plan: Supplemental oxygen On 2 LPM NC at baseline Titrate to keep O2 sats above 92%. AFib with RVR - currently in normal sinus rhythm. 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 Small right and trace left pleural effusions. Scattered areas of scarring in both lungs. Persistent slight mass effect upon the right heart by the inflated right lung. Coronary artery calcifications, up to moderate in the LAD. Healing moderate to marked compression fracture of L1. CXR on 04/23 showed no acute disease. No pleural effusion or pneumothorax. Continue antibiotics for UTI Amiodarone PO Eliquis Wound care Pain control Avoid oversedation Monitor renal function. Monitor electrolytes. Supplement as necessary. Monitor ins and outs. DVT prophylaxis. Prognosis: Poor given patient's multiple co-morbidities. Rest of plan per hospitalist and other consultants. A total of 51 minutes of clinical care time was spent reviewing the patient record, examining the patient, making a diagnostic and therapeutic plan, discussing this plan with the medical personnel, following up on diagnostic studies and following the patient for clinical stability excluding any and all procedures. At least 50% of this time was spent in direct, [id number] contact. Thank you, Dr. Loaiza, for allowing me to participate in this patient's care. Further recommendations will depend on the patient's clinical course. Please do not hesitate to contact me if you have any questions or concerns. This medical document was created using an electronic medical record system with [employer]ation system. Although these documentations are being carefully reviewed, there may still be some phonetic and typographical changes. The errors are purely typographical, due to imperfection on the software program, and do not reflect any compromise in the patient's medical care. Dietary Evaluation Review Comments: 1) Consider a Renal Specific K2,low phos 2gmNa, 60gPro/CCHO diet 2) Continue current plan of care Expected Outcomes/Goals: F/U in 3-5 days Plan discussed with: Patient, Other (REY Cedillo) CC Plasma Assessment Blood Product Administration S: [id number] LIOR ALVAREZ MD Apr 24, 2024 23:09
[2024-04-25 01:00] VITALS: BP 109/60; PULSE 112; RESP 20; TEMP 98.8; O2SAT 95
[2024-04-25 05:00] VITALS: BP 113/57; PULSE 111; RESP 20; TEMP 98.7; O2SAT 94
[2024-04-25 08:00] VITALS: PULSE 111
--- NOTE | 2024-04-25 10:23 | DVHPN2 ---
Progress Note Date Seen: Apr 25, 2024 Has the PT tested + for MRSA If YES, has PT been informed?: No Medical Necessity Reason Pt with a Central, PICC or Fol: No Subjective Patient reports: No new complaints Other Systems: Patient seen and examined by myself today in follow-up Objective vital signs Vital Sign Date Time Temp Pulse Resp B/P (MAP) Pulse Ox O2 Delivery O2 Flow Rate FiO2 04/25/24 08:00 111 04/25/24 08:00 Nasal Cannula* 2 28 04/25/24 06:39 113/68 04/25/24 05:00 98.7 20 94 98.7 Total Intake and Output 04/24/24 04/24/24 04/25/24 15:00 23:00 07:00 Intake Total 50 ml 450 ml 240 ml Output Total 100 ml Balance 50 ml 450 ml 140 ml medications Current Medications Medications Dose Ordered Sig/Anish Route Start Time Stop Time Status Last Admin Dose Admin Metoprolol Tartrate 2.5 mg Q6HPRN PRN IV 04/12/24 00:45 04/15/24 02:24 2.5 MG Ondansetron HCl 4 mg Q6HPRN PRN IV 04/12/24 01:45 04/12/24 18:21 4 MG Morphine Sulfate 2 mg Q6HPRN PRN IV 04/12/24 01:45 04/12/24 18:22 2 MG Acetaminophen 650 mg Q6HPRN PRN PO 04/12/24 01:45 04/24/24 16:00 650 MG Acetaminophen/ Hydrocodone Bitart 1 tab Q6HPRN PRN PO 04/12/24 01:45 04/12/24 10:47 1 TAB Diagnostic Test (Pha) 1 strip ACHS 04/12/24 07:00 04/25/24 05:53 1 STRIP Insulin Human Regular AC SC 04/12/24 17:00 04/24/24 11:46 3 UNITS Dextrose 50 ml UD PRN IV 04/12/24 15:45 Tamsulosin HCl 0.4 mg QPM PO 04/12/24 18:00 04/24/24 17:26 0.4 MG Patient Own Medication 1 gm Q8HR IV 04/14/24 17:30 UNV Hydralazine HCl 10 mg Q6HP PRN IV 04/14/24 17:45 04/14/24 17:54 10 MG Docusate Sodium 100 mg BID PO 04/15/24 22:00 04/24/24 10:01 100 MG Sennosides 17.2 mg HS PO 04/15/24 22:00 04/22/24 21:30 17.2 MG Amiodarone HCl 400 mg Q12HR PO 04/18/24 22:00 04/24/24 21:27 400 MG Levalbuterol HCl 0.625 mg Q6HPRN PRN NEB 04/18/24 13:30 Cancel Patient Own Medication 4 tab BIDAC PO 04/19/24 17:00 04/25/24 05:40 4 TAB Finasteride 5 mg DAILY PO 04/20/24 10:00 04/24/24 10:01 5 MG Mycophenolate Mofetil 1,000 mg BID PO 04/20/24 22:00 04/24/24 21:26 1,000 MG Metoprolol Tartrate 25 mg TID PO 04/21/24 14:00 04/25/24 05:39 25 MG Apixaban 2.5 mg BID PO 04/21/24 22:00 04/24/24 21:27 2.5 MG Alprazolam 0.25 mg BID PO 04/22/24 14:00 04/24/24 21:26 0.25 MG Examination: LUNGS:Normal, CVS:Normal, MSK:Normal laboratory and microbiology Laboratory Tests 04/23/24 06:19 Test 04/23/24 06:19 Range/Units Serum Glucose 134 H 74-106 mg/dL Microbiology Date/Time Source Procedure Growth Status 04/23/24 22:25 Blood Blood Culture - Preliminary NO GROWTH AFTER 24 HOURS OF INCUBATION. Resulted 04/19/24 15:30 Urine - Catheterized Urine Culture - Final Complete 04/14/24 23:25 Catheter Site Gram Stain - Final Complete 04/14/24 23:25 Catheter Site Wound Culture - Final Complete Problem List/Assessment/Plan Problem List/Assessment/Plan DAX on CKD stage IV likely hemodynamically mediated in setting of sepsis Lung transplant Bladder mass 7 cm Sepsis due to UTI/ESBL Atrial fibrillation with RVR Syncopal episode Diabetes mellitus type 2 Hypotension Sepsis Fevers Recommendations Kidney function kidney function stabilize stage IV Increased urine output Strict I&Os Renal diet IV antibiotic per ID consultt Insulin sliding scale Pulmonary consult Urology consult We will continue to follow up Plan discussed with: Patient Dietary Evaluation Review Comments: 1) Consider a Renal Specific K2,low phos 2gmNa, 60gPro/CCHO diet 2) Continue current plan of care Expected Outcomes/Goals: F/U in 3-5 days CC Plasma Assessment Blood Product Administration S: [id number] SUDEEP GUILLEN MD Apr 25, 2024 10:23
--- NOTE | 2024-04-25 16:58 | DVHPN2 ---
Progress Note - Dictate Date Seen: Apr 25, 2024 Has the PT tested + for MRSA If YES, has PT been informed?: No Medical Necessity Reason Pt with a Central, PICC or Fol: No Subjective Patient seen and examined at bedside. Remains on supplemental oxygen Overnight events reviewed. vital signs Vital Sign Date Time Temp Pulse Resp B/P (MAP) Pulse Ox O2 Delivery O2 Flow Rate FiO2 04/25/24 08:00 111 04/25/24 08:00 Nasal Cannula* 2 28 04/25/24 06:39 113/68 04/25/24 05:00 98.7 20 94 98.7 Total Intake and Output 04/24/24 04/24/24 04/25/24 15:00 23:00 07:00 Intake Total 50 ml 450 ml 240 ml Output Total 100 ml Balance 50 ml 450 ml 140 ml medications Current Medications Medications Dose Ordered Sig/Anish Route Start Time Stop Time Status Last Admin Dose Admin Patient Own Medication 1 gm Q8HR IV 04/14/24 17:30 UNV Levalbuterol HCl 0.625 mg Q6HPRN PRN NEB 04/18/24 13:30 Cancel objective Gen.: Patient lying in bed in no apparent distress. On supplemental oxygen. Head: Normocephalic, atraumatic. Eyes: EOMI/PERRLA. Ears: Normal hearing. Normal anatomy. Neck/trachea: Trachea midline, supple. Nose: Normal external anatomy. Mouth: Moist mucous membranes. Chest: Decreased air entry bilaterally. No wheezing or rhonchi. Cardiovascular: Positive S1, positive S2. Regular rate and rhythm. Abdomen: Positive bowel sounds in all 4 quadrants. Soft, non-tender, non- distended. : Deferred. Rectal: Deferred. Skin: Warm, dry. Intact. Extremities: 2+ radial pulses bilaterally. No lower extremity edema. Neuro: Awake, alert, oriented x3. No gross motor or sensory deficits. Cranial nerves II through XII intact. Gait not assessed. laboratory and microbiology Laboratory Tests 04/23/24 06:19 Test 04/23/24 06:19 Range/Units Serum Glucose 134 H 74-106 mg/dL Assessment/Plan Impression: Chronic hypoxic respiratory failure Dependence on supplemental oxygen Atelectasis Pleural effusion Atrial fibrillation w/ RVR Hx of lung transplant Urinary tract infection Back pain Events: Remains on supplemental oxygen, 2 LPM NC Taper O2 as tolerated MRI lumbar and thoracic spines showed chronic compression fracture of T7, acute L1 compressive deformity, rib fracture of right 10th rib, chronic deformity of L5, moderate central canal stenosis L4-L5. Pain control Avoid oversedation Continue antibiotics Incentive spirometry Wound care. Note, patient signed out AMA at 09:20 AM - pt aware of risks and benefits. Labs and imaging reviewed. Plan: Supplemental oxygen On 2 LPM NC at baseline Titrate to keep O2 sats above 92%. AFib with RVR - currently in normal sinus rhythm. 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 Small right and trace left pleural effusions. Scattered areas of scarring in both lungs. Persistent slight mass effect upon the right heart by the inflated right lung. Coronary artery calcifications, up to moderate in the LAD. Healing moderate to marked compression fracture of L1. CXR on 04/23 showed no acute disease. No pleural effusion or pneumothorax. Continue antibiotics for UTI Amiodarone PO Eliquis Wound care Pain control Avoid oversedation Monitor renal function. Monitor electrolytes. Supplement as necessary. Monitor ins and outs. DVT prophylaxis. Prognosis: Poor given patient's multiple co-morbidities. Rest of plan per hospitalist and other consultants. A total of 51 minutes of clinical care time was spent reviewing the patient record, examining the patient, making a diagnostic and therapeutic plan, discussing this plan with the medical personnel, following up on diagnostic studies and following the patient for clinical stability excluding any and all procedures. At least 50% of this time was spent in direct, [id number] contact. Thank you, Dr. Loaiza, for allowing me to participate in this patient's care. Further recommendations will depend on the patient's clinical course. Please do not hesitate to contact me if you have any questions or concerns. This medical document was created using an electronic medical record system with [employer] dictation system. Although these documentations are being carefully reviewed, there may still be some phonetic and typographical changes. The errors are purely typographical, due to imperfection on the software program, and do not reflect any compromise in the patient's medical care. Dietary Evaluation Review Comments: 1) Consider a Renal Specific K2,low phos 2gmNa, 60gPro/CCHO diet 2) Continue current plan of care Expected Outcomes/Goals: F/U in 3-5 days Plan discussed with: Patient, Other (REY Crocker) CC Plasma Assessment Blood Product Administration S: [id number] LIOR ALVAREZ MD Apr 25, 2024 16:58
--- NOTE | 2024-04-28 13:23 | ECG ---
[facility] Test Date: 2024-04-14 Test Time: 20:36:49 Pat Name: GIANNI SCHWARTZ Department: Room: 0283T A Gender: M [employer]: eddie : 1945 Requested By: HERRERA ENRIQUEZ Order Number: [id number] Reading MD: Esequiel Pickens Measurements Intervals [place] Rate: 105 P: 73 [place]: 161 QRS: 35 QRSD: 84 T: 67 QT: 337 QTc: 446 Interpretive Statements Sinus tachycardia Atrial premature complexes Low voltage, extremity leads Anteroseptal infarct, old Borderline ST elevation, lateral leads Baseline wander in lead(s) V1 Electronically Signed On 04-28-2024 13:32:20 PST by Esequiel Pickens Please click the below link to view image of tracing.
--- NOTE | 2024-04-28 13:23 | ECG ---
[facility] Test Date: 2024-04-14 Test Time: 20:38:14 Pat Name: GIANNI SCHWARTZ Department: Room: 0283T A Gender: M Taker Down: eddie : 1945 Requested By: HERRERA ENRIQUEZ Order Number: [id number] Reading MD: Esequiel Pickens Measurements Intervals [place] Rate: 106 P: 72 [place]: 160 QRS: 35 QRSD: 84 T: 64 QT: 340 QTc: 452 Interpretive Statements Sinus tachycardia Low voltage, extremity leads ST elevation, consider lateral injury Baseline wander in lead(s) V4 Electronically Signed On 04-28-2024 13:32:21 PST by Esequiel Pickens Please click the below link to view image of tracing.
--- NOTE | 2024-05-12 12:16 | DVHDS2 ---
Discharge Summary Date of Admission Apr 12, 2024 at 01:45 Date of Discharge: Apr 25, 2024 Labs/Diagnostic Data: Laboratory Results Test 04/25/24 05:50 04/23/24 06:19 04/22/24 05:12 04/19/24 15:30 POC Glucose 114 mg/dl (70-106) White Blood Count 4.4 10^3/uL (4.4-10.8) Red Blood Count 3.86 10^6/uL (4.5-5.90) Hemoglobin 8.6 g/dL (13.5-17.5) Hematocrit 26.8 % (41.0-53.0) Mean Corpuscular Volume 69.5 fL (80.0-100.0) Mean Corpuscular Hemoglobin 22.2 pg (28.0-32.0) Mean Corpuscular Hemoglobin Concent 32.0 g/dL (32.0-36.0) Red Cell Distribution Width 30.7 % (11.8-14.3) Platelet Count 240 10^3/uL (140-450) Mean Platelet Volume 8.3 fL (6.9-10.8) Neutrophils (%) (Auto) 45.9 % (37.0-80.0) Lymphocytes (%) (Auto) 48.7 % (10.0-50.0) Monocytes (%) (Auto) 2.7 % (0.0-12.0) Eosinophils (%) (Auto) 0.8 % (0.0-7.0) Basophils (%) (Auto) 1.9 % (0.0-2.0) Neutrophils # (Auto) 2.0 10 ^3/uL (1.6-8.6) Lymphocytes # (Auto) 2.2 10 ^3/uL (0.4-5.4) Monocytes # (Auto) 0.1 10 ^3/uL (0-1.3) Eosinophils # (Auto) 0 10 ^3/uL (0-0.8) Basophils # (Auto) 0.1 10 ^3/uL (0-0.2) Nucleated Red Blood Cells 0.2 % Platelet Estimate Adequate Hypochromasia (manual) Slight Anisocytosis (manual) Moderate Microcytosis Slight Ovalocytes Few Dona Cells Few Schistocytes Moderate Sodium Level 140 mmol/L (136-145) Potassium Level 4.5 mmol/L (3.5-5.1) Chloride Level 107 mmol/L (98-107) Carbon Dioxide Level 21 mmol/L (20-31) Anion Gap 12 (5-15) Blood Urea Nitrogen 25 mg/dL (9-23) Creatinine 2.58 mg/dL (0.700-1.30) Glomerular Filtration Rate Calc 25 mL/min (>90) BUN/Creatinine Ratio 9.7 (10.0-20.0) Serum Glucose 134 mg/dL (74-106) Calcium Level 8.8 mg/dL (8.7-10.4) Thyroid Stimulating Hormone (TSH) 1.78 uIU/mL (0.55-4.78) Free Thyroxine (T4) Calculated 1.21 ng/dL (0.89-1.76) Urine Color Light-orange (Yellow) Urine Clarity Ex.turbid (Clear) Urine pH 5.5 (5.0-9.0) Urine Specific [place] 1.015 (1.001-1.035) Urine Protein 2+ (Negative) Urine Ketones Trace (Negative) Urine Blood 2+ /uL (Negative) Urine Nitrite Negative (Negative) Urine Bilirubin Negative (Negative) Urine Urobilinogen Normal mg/dL (Negative) Urine Leukocyte Esterase 3+ /uL (Negative) Urine RBC 183 /hpf (0 - 3) Urine WBC 625 /hpf (0 - 3) Urine WBC Clumps Present /hpf (None Seen) Urine Squamous Epithelial Cells Few /hpf (<5) Urine Bacteria Mod /hpf (None Seen) Urine Mucus Few (None Seen) Urine Glucose Trace mg/dL (Normal) Test 04/19/24 06:14 04/18/24 04:30 04/15/24 10:30 04/13/24 05:03 Magnesium Level 1.5 mg/dL (1.6-2.6) Total Bilirubin 0.3 mg/dL (0.2-1.0) Aspartate Amino Transferase (AST) 20 U/L (13-40) Alanine Aminotransferase (ALT) 16 U/L (7-40) Alkaline Phosphatase 79 U/L (46-116) Total Protein 5.4 g/dL (5.7-8.2) Albumin 3.1 g/dL (3.2-4.8) Stool Occult Blood Neg x1 (Negative) Stool Occult Blood Sample #3 (Negative) Urine Creatinine 94.09 mg/dL (30.0-125.0) Urine Protein/Creatinine Ratio 2.30 Urine Sodium 64 mmol/L (40-220) Urine Total Protein 216.7 mg/dL (1-14) Large Platelets Few Poikilocytosis (manual) Slight Test 04/12/24 14:50 04/12/24 02:00 04/11/24 17:51 04/11/24 15:46 Hemoglobin A1c 8.5 % A1C (<5.7) Iron Level 33 ug/dL (65-175) Total Iron Binding Capacity 167 ug/dL (250-425) Percent Iron Saturation 19.8 % (20-55) Ferritin 646.4 ng/mL (22-322) Vitamin B12 Level 784 pg/mL (211-911) Lactic Acid Level 1.2 mmol/L (0.4-2.0) Troponin I High Sensitivity 14 ng/L (</=54) B-Type Natriuretic Peptide 106.31 pg/mL (0-100) Lipase 35 U/L (12-53) Other Laboratory Tests 04/23/24 06:19 Brief Hx & Hospital Course: Mr. Jamie Kim is a 78-year-old male with a history of COPD, CKD, DM2, HTN, A Fib, Lung transplant who is in poor overall health, patient presents with a chief complaint of s/p syncopal event approximately 1/2 hour prior to arrival to the hospital. Patient has been in [facility] for management and was discharged today. The patient went to the parking lot and had a syncopal event that was witnessed by his daughter. While in ED patient went into SVT with heart rate of 190's, converted to atrial fibrillation with RVR started on Amiodarone drip per protocol. Patient denies chest pain, headaches, dizziness, nausea, vomiting, palpitations, dysuria, hematuria, abdominal pain, diarrhea, melena , hematochezia. He is admitted and underwent evaluations by multiple consultants for his medical problems. Patient essentially noted to have a bladder mass and cystoscopy. His urine cultures came back growing ESBL E coli for which he had a midline placed and received empiric IV antibiotics. Patient noted to be in atrial fibrillation with a rapid ventricular response. Patient remained on amiodarone drip. Continued to be in AFib. Patient complained of back pain for which she CT showed a L1 spinal vertebral fracture. Patient also noted to have a pneumonia. Patient had a prolonged hospitalization with mostly bed-bound status due to his AFib and became significantly weak with physical deconditioning. Patient also started developing low-grade fevers and his follow up blood and urine cultures showed negative for any bacterial growth. Plan is for him to go to nursing home facility once heart rate is controlled and he is afebrile for continued physical therapy. Once he is clinically improved he is advised to follow up with the Cardiology and urologist for further evaluation and management of his bladder mass with preop cardiac evaluation. However his daughter did not want him to stay in the hospital any longer and decided to take him against medical advice despite encouraged to keep him in the hospital till his acute symptoms resolved. Patient and daughter is fully aware of leaving against medical advice and risks involved including WI, severe sepsis and even . Consults/Reason for consult Report Details Date: 04/16/24 Preop Diagnosis: Urinary outlet obstruction Bladder mass Postop Diagnosis: Urethral stricture disease Surgeon: Comfort Aguilera Anesthesiologist: Bedside cystoscopy without anesthesiologist Anesthesia: Local Consent: The patient was informed of the risks and benefits of the procedure. These include but are not limited to complications of anesthesia, postoperative infection, incomplete relief of symptoms, recurrence of symptoms, damage to blood vessels, nerves and tendons, deep venous thrombosis, pulmonary embolism and possible need for repeat surgery in the future. Indications for Surgery: Bladder mass reported on ultrasound Name of Procedure Performed Diagnostic Cystoscopy attempted Procedure Details Procedure Details: Patient was consented for a diagnostic cystoscopy. With the patient in the supine position at the bedside, genitalia was prepped and draped in usual sterile manner. Lidocaine gel was applied to the penile urethra. Flexible digital cystoscope was used to access the urethra. There was a proximal urethral stricture which I attempted to dilate with the cystoscope, but the patient could not tolerate the pain and the procedure was terminated. Patient will be consented for a diagnostic cystoscopy with urethral calibration and possible TURBT under anesthesia tomorrow. Specimen: None Condition Fair Disposition 2 COMFORT AGUILERA MD Apr 16, 2024 13:10 Operations or Procedures EXAM: Two-dimensional and M-mode echocardiogram with Doppler and color Doppler. Blood Pressure: 121/62 mmHg INDICATION Atrial Fibrillation Syncope w/ RVR RISK FACTORS Height: 5' 9", Weight: 149 DIMENSIONS LVDd 4.0 (3.8-5.7cm) LA (2D) 4.2 (1.9-4.0cm) Aortic Root 3.6 (2.0- 3.7cm) LVDs 2.7 (2.5-4.0cm) LA (MM) (1.9-4.0cm) Aortic Cusp Exc 1.5 (1.5- 2.0cm) EF (%) 62.0 (55-70%) Rt. Atrium 4.8 (1.9-4.0cm) Asc. Aorta cm IVSd 1.1 (0.7-1.1cm) RV (D) (1.8-2.4cm) PWd 1.1 (0.7-1.1cm) Mitral Valve Mitral Mitral Stenosis E wave 1.00m/s MV Mean GR. mmHg A wave 0.90m/s MV Peak GR. mmHg E/A ratio 1.1 2D MVA cm2 Aortic Valve Aortic Valve Aortic Stenosis V1 1.10m/s AO Mean GR. 3mmHg V2 1.20m/s AO Peak GR. 6mmHg LVOT Diameter 2.3 (1.8-2.4cm) Doppler PATRICIA 3.81cm2 AI P 1/2 Time 585.80ms Pulmonic Valve V2 0.80m/s Tricuspid Valve TR Velocity 3.10m/s RVSP 44mmHg Conclusion Normal left ventricular size and dimension. Normal left ventricular systolic function estimated ejection fraction of 60%. There is a grade diastolic dysfunction. Normal right ventricular size and dimension. Normal right ventricular systolic function. [id number] increased right ventricular systolic pressure at 44 mm of mercury. Normal biatrial size and dimension. The aortic valve is mildly thickened and sclerotic there is mild aortic valve regurgitation. The mitral valve appears normal structure and function. Normal tricuspid valve structure and function. The pulmonary valve is grossly normal. No pericardial effusion. SIGNED BY: AMBER MONZON MD SIGNED DATE/TIME: 04/12/24 1340 Condition at Discharge: Fair Final Diagnosis/Problems List Bladder mass Urethral stricture disease Problems List: (1) L1 vertebral fracture Status: Acute (2) Pneumonia Status: Acute (3) Weakness Status: Acute (4) Diabetes mellitus Status: Acute (5) Atrial fibrillation with RVR (6) Mbzqw-ik-[id number] kidney injury Status: Acute Discharge Disposition: AMA Discharge Statement: "Patient was advised to return to the ER or call 911 if any headaches, dizziness, shortness of breath, chest pain, abdominal pain, bleeding, fevers, or worsening of medical condition. Patient was counseled about treatment plan, medications, possible side effects, patientverbalized understanding. All questions were answered to the best of my ability. This discharge took greater then 30 minutes in planning, reviewing documentation, counseling the patient, and discussing with other team members." ASSESSMENT ASSESSMENT Assessment Urethral stricture disease HERRERA ENRIQUEZ MD May 12, 2024 12:16
== END 2024-04-25 09:40 | disposition left against medical advice (07) | DRG 871 ==
LOC: ER 15:15 → EDBD 15:15 → TELE 04-12 01:45 → TELE-WESTW 04-13 17:35
PROVIDERS: ADMIT Nurse Practitioner Family; ATTEND Internal Medicine
PROC: 30233N1 Transfusion of Nonautologous Red Blood Cells into Peripheral Vein, Percutaneous Approach (ICD-10-PCS; principal; 2024-04-11)
PROC: 06HY33Z Insertion of Infusion Device into Lower Vein, Percutaneous Approach (ICD-10-PCS; 2024-04-11)
PROC: 0TJB8ZZ Inspection of Bladder, Via Natural or Artificial Opening Endoscopic (ICD-10-PCS; 2024-04-16)
PROC: 05H933Z Insertion of Infusion Device into Right Brachial Vein, Percutaneous Approach (ICD-10-PCS; 2024-04-20)
PROC: B54MZZA Ultrasonography of Right Upper Extremity Veins, Guidance (ICD-10-PCS; 2024-04-20)
DX: A41.9 Sepsis, unspecified organism (principal); J18.9 Pneumonia, unspecified organism; N17.0 Acute kidney failure with tubular necrosis; J90 Pleural effusion, not elsewhere classified; N39.0 Urinary tract infection, site not specified; J96.11 Chronic respiratory failure with hypoxia; Z16.12 Extended spectrum beta lactamase (ESBL) resistance; S32.019A Unspecified fracture of first lumbar vertebra, initial encounter for closed fracture; N13.8 Other obstructive and reflux uropathy; N18.4 Chronic kidney disease, stage 4 (severe); J44.0 Chronic obstructive pulmonary disease with (acute) lower respiratory infection; T86.812 Lung transplant infection; D64.9 Anemia, unspecified; I48.91 Unspecified atrial fibrillation; I12.9 Hypertensive chronic kidney disease with stage 1 through stage 4 chronic kidney disease, or unspecified chronic kidney disease; B96.1 Klebsiella pneumoniae [K. pneumoniae] as the cause of diseases classified elsewhere; E11.22 Type 2 diabetes mellitus with diabetic chronic kidney disease; E11.649 Type 2 diabetes mellitus with hypoglycemia without coma; N32.9 Bladder disorder, unspecified; N35.919 Unspecified urethral stricture, male, unspecified site; E78.5 Hyperlipidemia, unspecified; G89.29 Other chronic pain; Z53.29 Procedure and treatment not carried out because of patient's decision for other reasons; N40.1 Benign prostatic hyperplasia with lower urinary tract symptoms; Z87.891 Personal history of nicotine dependence; Z83.3 Family history of diabetes mellitus; Z82.3 Family history of stroke; Z99.81 Dependence on supplemental oxygen
CPT/HCPCS: 36415; 70450; 71045; 71250; 72146; 72148; 76775; 80048; 80053; 81001; 82270; 82570; 82607; 82728; 82962; 83036; 83540; 83550; 83605; 83690; 83735; 83880; 84156; 84300; 84439; 84443; 84484; 85014; 85018; 85025; 86850; 86900; 86901; 86920; 87040; 87086; 87088; 87186; 87205; 93005; 93306; 93970; 94640; 97110; 97116; 97163; 97530; 99291; G0378; J0153; J1815; J1956; J2405; J2470; J7517; P9047; Q0162

== ENCOUNTER 2024-05-30 17:31 | Inpatient (IN) | payer OTHER ==
[~2024-05-30] VITALS: Ht 177.8 cm; Wt 74.6 kg
[2024-05-30] MEDS ORDERED: SODIUM CHLORIDE 0.9% 1,000 ML IVB ONE (17:45)
--- NOTE | 2024-05-30 18:20 | ED.PDOC ---
SOB-HPI HPI Comments 78y F who presents to the ED via EMS for chief complaint of multiple complaints. Pt presents to the ED for shortness of breath, black stools and elevated blood sugar. Per EMS, pt family called after they noted pt had black stools with associated shortness of breath. EMS arrived and noted blood glucose of 248 and 02 sat of 75% on room air. EMS told by family pt urinal had dark yellow urine and strong odor and noted pt having dark black stools. Pt was placed on 15 L via nrb and brought to the ED. Pt now in ED, noted to have BP of 100/59, heart rate of 128 and temp of 102.0F. Pt otherwise is alert and oriented. Pt otherwise denies any other symptoms at this time. Chief Complaint: Shortness of Breath Time Seen by MD: 18:18 Primary Care Provider: LUIS ANTONIO Baires notes: Nurses Notes Information Source: Patient, Emergency Med Personnel Mode of Arrival: EMS Brought in by: EMS Past Medical History PAST MEDICAL HISTORY: AFIB, COPD, DM, High Lipids, HTN, Liver Family History Family History: Family hx of Cancer Social History Smoker: Non-Smoker, Quit Greater Than 1 Year Alcohol: Denies ETOH Use Drugs: Denies Drug Use Lives In: Home Constitutional: reports: fatigue, malaise; denies: chills, diaphoresis, fever, sweats, weakness, others EENTM: denies: blurred vision, double vision, ear bleeding, ear discharge, ear drainage, ear pain, ear ringing, eye pain, eye redness, hearing loss, mouth pain, mouth swelling, nasal discharge, nose bleeding, nose congestion, nose pain, photophobia, tearing, throat pain, throat swelling, voice changes, others Respiratory: reports: shortness of breath; denies: cough, hemoptysis, orthopnea, SOB at rest, SOB with excertion, stridor, wheezing, others Cardiovascular: denies: chest pain, dizzy spells, diaphoresis, Dyspnea on exertion, edema, irregular heart beat, left arm pain, lightheadedness, palpitations, PND, syncope, others Gastrointestinal: reports: melena; denies: abdomen distended, abdominal pain, blood streaked bowels, constipated, diarrhea, dysphagia, difficulty swallowing, hematemesis, nausea, poor appetite, poor fluid intake, rectal bleeding, rectal pain, vomiting, others Genitourinary: denies: burning, dysuria, flank pain, frequency, hematuria, incontinence, penile discharge, penile sore, pain, testicle pain, testicle swelling, urgency, others Neurological: denies: dizziness, fainting, headache, left sided numbness, left sided weakness, numbness, paresthesia, pre-existing deficit, right sided numbness, right sided weakness, seizure, speech problems, tingling, tremors, weakness, others Musculoskeletal: denies: back pain, gout, joint pain, joint swelling, muscle pain, muscle stiffness, neck pain, others Integumetry: denies: bruises, change in color, change in hair/nails, dryness, laceration, lesions, lumps, rash, wounds, others Allergic/Immunocompromised: denies: Difficulty Healing, Frequent Infections, Hives, Itching, others Hematologic/Lymphatic: denies: anemia, blood clots, easy bleeding, easy bruising, swollen glands, others Endocrine: denies: excessive hunger, excessive sweating, excessive thirst, excessive urination, flushing, intolerance to cold, intolerance to heat, unexplained weight gain, unexplained weight loss, others Psychiatric: denies: anxiety, bipolar disorder, depression, hopeless, panic disorder, schizophrenia, sleepless, suicidal, others All Other Systems: Reviewed and Negative Physical Exam Exam Comments chronically ill appearance General Appearance: Moderate Distress HEENT: Normal ENT Inspection, Pharynx Normal, TMs Normal Neck: Full Range of Motion, Non-Tender, Normal, Normal Inspection Respiratory: Decreased Breath Sounds, Respiratory Distress, Rhonchi Cardiovascular: Regular Rate/Rhythm, Other (dialysis catheter) Breast Exam: Deferred Gastrointestinal: No Organomegaly, Non Tender, No Pulsatile Mass, Normal Bowel Sounds, Soft Genitalia: Deferred Pelvic: Deferred Rectal: Black stool, Heme positive stool Extremities: No calf tenderness, Normal capillary refill, Normal inspection, Normal range of motion, Non-tender, No pedal edema Musculoskeletal : Apperance: Normal Neurologic: Alert, imager II-XII nml as Tested, No Motor Deficits, Normal Affect, Normal Mood, No Sensory Deficits Cerebellar Function: Normal Reflexes: Normal Skin: Dry, Normal Color, Warm Lymphatic: No Adenopathy Was a procedure done? Was a procedure done?: No Differential Dx Differential Diagnosis: CHF, COPD, Pneumonia, Pulmonary Embolism, Respiratory Distress Comments GI bleed, acute resp failure X-Ray, Labs, Meds, VS Vital Signs Date Time Temp Pulse Resp B/P (MAP) Pulse Ox O2 Delivery O2 Flow Rate FiO2 05/30/24 17:35 Non-Rebreather 15 N/A 05/30/24 17:33 119 05/30/24 17:31 102.0 128 20 100/59 (73) 100 05/30/24 17:31 Non-Rebreather 15 N/A Lab Test 05/30/24 18:21 05/30/24 18:06 Range/Units Stool Occult Blood Sample #3 Pending White Blood Count Pending Red Blood Count Pending Hemoglobin Pending Hematocrit Pending Mean Corpuscular Volume Pending Mean Corpuscular Hemoglobin Pending Mean Corpuscular Hemoglobin Concent Pending Red Cell Distribution Width Pending Platelet Count Pending Mean Platelet Volume Pending Neutrophils (%) (Auto) Pending Lymphocytes (%) (Auto) Pending Monocytes (%) (Auto) Pending Basophils (%) (Auto) Pending Neutrophils # (Auto) Pending Lymphocytes # (Auto) Pending Monocytes # (Auto) Pending Prothrombin Time Pending Prothrombin Time INR Pending Sodium Level Pending Potassium Level Pending Chloride Level Pending Carbon Dioxide Level Pending Anion Gap Pending Blood Urea Nitrogen Pending Creatinine Pending Glomerular Filtration Rate Calc Pending BUN/Creatinine Ratio Pending Serum Glucose Pending Lactic Acid Level Pending Calcium Level Pending Magnesium Level Pending Total Bilirubin Pending Aspartate Amino Transferase (AST) Pending Alanine Aminotransferase (ALT) Pending Alkaline Phosphatase Pending Troponin I High Sensitivity Pending Total Protein Pending Albumin Pending Time of 1ST Reevaluation: 18:50 Reevaluation 1ST: Unchanged Time of 2ND Reevaluation: 18:31 Reevaluation 2ND: Unchanged Patient Education/Counseling: Diagnosis, Treatment Family Education/Counseling: No Family Present Sepsis Sepsis Reasesment Focused Exam Sepsis focused exam: focus exam completed, time: (1800) Departure 1 Departure Time of Disposition: 18:31 Impression: Primary Impression: Respiratory failure with hypoxia Additional Impressions: Pneumonia End stage renal failure on dialysis Upper GI bleeding Disposition: ADMITTED INPATIENT Admit to: Tele Condition: Guarded Discharged With: Self Critical Care Note Critical Care Time?: Yes (45 min-critical care time only) Critical care comment: Total critical care time: Approximately 36 minutes Due to a high probability of clinically significant, life threatening deterioration, the patient required my highest level of preparedness to intervene emergently and I personally spent this critical care time directly and personally managing the patient. This critical care time included obtaining a history; examining the patient; pulse oximetry; ordering and review of studies; arranging urgent treatment with development of a management plan; evaluation of patient's response to treatment; frequent reassessment; and, discussions with other providers. This critical care time was performed to assess and manage the high probability of imminent, life-threatening deterioration that could result in multi-organ failure. It was exclusive of separately billable procedures and treating other patients. Stability Stability form required: No Heart Score Heart Score: Heart Score Response (Comments) Value History N/A 0 EKG N/A 0 Age N/A 0 Risk Factors N/A 0 Troponin N/A 0 Total 0 I personally scribed for SHIV KELLY MD ([email or web address]) on 05/30/24 at 18:20. Electronically submitted by Brittney Will ([email or web address]). SHIV KELLY MD May 30, 2024 18:20
[2024-05-30] MEDS: ACETAMINOPHEN 325 MG TAB PO ONE (18:34)
[2024-05-30] MEDS: cefTRIAXone 1GM/50ML D5W 50 ML IV ONE (18:35)
[2024-05-30] MEDS: AZITHROMYCIN 500MG/ 250ML 250 ML IV ONE (18:35)
[2024-05-30] MEDS: PANTOPRAZOLE 40 MG/10 ML VIAL INJ IV ONE (18:36)
[2024-05-30] MEDS: SODIUM CHLORIDE 0.9% 500 ML IV ONE ×2 (18:37→19:18)
[2024-05-30 18:49] LABS: INR 1.19 (0.9-1.15); Prothrombin Time 12.4 sec (9.3-11.8)
[2024-05-30 18:59] LABS: Alanine Aminotransferase 12 U/L (7-40); Albumin 3.4 g/dL (3.2-4.8); Alkaline Phosphatase 67 U/L (46-116); Anion Gap 10 (5-15); Aspartate Aminotransferase 14 U/L (13-40); BUN/Creatinine Ratio 7.7 (10.0-20.0); Blood Urea Nitrogen 19 mg/dL (9-23); Carbon Dioxide 28 mmol/L (20-31); Chloride 103 mmol/L (98-107); Potassium 3.5 mmol/L (3.5-5.1); Sodium 141 mmol/L (136-145)
[2024-05-30 19:00] VITALS: PULSE 115; RESP 24; O2SAT 90
[2024-05-30 19:00] LABS: Bilirubin, Total 0.6 mg/dL (0.2-1.0)
[2024-05-30 19:04] LABS: Calcium 8.5 mg/dL (8.7-10.4); Glucose 238 mg/dL (74-106); Magnesium 1.4 mg/dL (1.6-2.6); Total Protein 5.7 g/dL (5.7-8.2)
--- NOTE | 2024-05-30 19:36 | DVH ---
CHEST RADIOGRAPH Indication: SOB Technique: Single frontal view of the chest was obtained Comparison: XY CHEST PORTABLE on DOS: 04/22/24, XY CHEST PORTABLE on DOS: 03/12/24, XY CHEST PORTABLE on DOS: 03/06/24 FINDINGS: Lines and Tubes: Right IJ approach hemodialysis catheter terminating over the superior cavoatrial fawn ction. Lungs: No focal consolidation. Diffuse interstitial prominence with right upper lung and lower lung z ones linear density Pleura: No effusion. No pneumothorax. Cardiomediastinal contours: Unremarkable Bones: No acute osseous abnormality. Midline sternotomy wires noted. IMPRESSION: Right IJ approach hemodialysis catheter in satisfactory position. Pulmonary vascular congestion with right upper and lower lung zone atelectasis.
[2024-05-30] MEDS: NOREPINEPHRINE 8 MG/250ML KIT 250 ML IV SCH (20:40)
[2024-05-30 20:45] VITALS: PULSE 92; RESP 20; O2SAT 100
[2024-05-30 21:24] LABS: Urine Bacteria None Seen /hpf (None Seen)
[2024-05-30 21:37] LABS: COVID19 ANTIGEN SOFIA FIA NEGATIVE (NEGATIVE); Rapid Influenza A Negative (Negative); Rapid Influenza B Negative (Negative)
[2024-05-30 21:40] LABS: Urine Blood 3+ /uL (Negative); Urine Budding Yeast MODERATE /hpf (None Seen); Urine Clarity Ex.Turbid (Clear); Urine Color Dark-Brown (Yellow); Urine Protein, UAD 2+ (Negative); Urine Specific Gravity 1.014 (1.001-1.035); Urine Squamous Epithelial Cell None Seen /hpf (<5); Urine Urobilinogen Normal (Negative); Urine WBC 5302 /HPF (0-3); Urine WBC Clumps PRESENT /hpf (None Seen)
[2024-05-30 21:58] LABS: Basophils # (auto) 0.1 10 ^3/uL (0-0.2); Basophils % (auto) 1.1 % (0.0-2.0); Eosinophils # (auto) 0 10 ^3/uL (0-0.8); Eosinophils % (auto) 0.1 % (0.0-7.0); Hematocrit 22.8 % (41.0-53.0); Hemoglobin 7.1 g/dL (13.5-17.5); Lymphocytes # (auto) 1.8 10 ^3/uL (0.4-5.4); Lymphocytes % (auto) 23.5 % (10.0-50.0); Mean Corpuscular Hemoglobin 21.7 pg (28.0-32.0); Mean Corpuscular Hgb Conc. 31.3 g/dL (32.0-36.0); Mean Corpuscular Volume 69.3 fL (80.0-100.0); Monocytes # (auto) 1.1 10 ^3/uL (0-1.3); Monocytes % (auto) 14.5 % (0.0-12.0); Neutrophils # (auto) 4.7 10 ^3/uL (1.6-8.6); Neutrophils % (auto) 60.8 % (37.0-80.0); Nucleated Red Blood Cells % 0.6 %; Platelet Count (auto) 135 10^3/uL (140-450); Red Blood Cells 3.29 10^6/uL (4.5-5.90); White Blood Cell 7.8 10^3/uL (4.4-10.8)
[2024-05-30 22:17] LABS: Anisocytosis Moderate; Hypochromia Moderate; Ovalocytes MODERATE; Platelet Estimate Decreased
[2024-05-30] MEDS ORDERED: ALBUTEROL SULF 2.5 MG/0.5ML(0.5%) NEB SOLN NEB PRN (23:15)
[2024-05-30] MEDS ORDERED: NITROGLYCERIN 0.4 MG SL TAB SL PRN (23:15)
[2024-05-30] MEDS ORDERED: MORPHINE SULFATE INJ 2 MG/ml SYRG IV PRN (23:15)
[2024-05-30] MEDS ORDERED: DEXTROSE (50%) 50ML SYRG IV PRN (23:15)
[2024-05-31] VITALS (44 sets, daily range): BP systolic 75–126; BP diastolic 40–86; PULSE 86–140; RESP 15–27; TEMP 97–103.1; O2SAT 91–100
[2024-05-31] MEDS: ACCU-CHEK COMFORT CURVE STRIP VI SCH (00:09)
[2024-05-31] MEDS: InsuLIN REG 1unit/0.01ml Soln (100units/ml) SC SCH (00:13)
[2024-05-31] MEDS: PANTOPRAZOLE 40mg/50ML NS AE 50 ML IV ONE (00:14)
[2024-05-31] MEDS: SODIUM CHLORIDE 0.9% 1,000 ML IV ONE (00:16)
[2024-05-31] MEDS ORDERED: PANTOPRAZOLE 40mg/50ML NS AE 50 ML IV SCH (03:00)
--- NOTE | 2024-05-31 03:21 | DVHHP2 ---
ANUJA ZURITA MEDICAL APPOINTMENT CLERK 05/31/24 0321: History of Present Illness Reason for Visit: Shortness of breath, Black stool History of Present Illness Information in the HPI is limited due to the patient's current cognitive status. Attempted to contact patient Family Via telephone, however there's no answer. 78-year-old male with past medical history of COPD, CD, DM2, hypertension, AFIB, left lung transplant, Bladder mass Presents with complaints of hypoxia And black stool x 1 day. EMS reported when they encountered the patient patient's oxygen saturation was in the 75s And brought into the emergency department on 15 L nonrebreather. Additionally patient was found to be fever with the temperature 102 And hypotensive requiring vasopressors. Patient admitted for further evaluation and treatment Cardiovascular: AFIB, HTN Pulmonary: COPD Heme/Onc: Cancer Renal/: Chronic renal insuff Endocrine: Diabetes Lives: with Family Past Social History Unable to obtain past social history Review of Systems Constitutional: Yes: Fever, Weakness; No: Chills, Sweats, Malaise, Other Eyes: No: Pain, Vision change, Conjunctivae inflammation, Eyelid inflammation, Other, Redness ENT: No: Ear pain, Ear discharge, Nose pain, Nose discharge, Nose congestion, Mouth pain, Mouth swelling, Throat pain, Throat swelling, Other Respiratory: Shortness of breath; No: Cough, Dry, SOB with excertion, Wheezing, Hemoptysis, Pleuritic Pain, Sputum, Wheezing, Other Cardiovascular: No: Chest Pain, Palpitations, Orthopnea, Paroxysmal Noc. Dyspnea, Edema, Lt Headedness, Other Gastrointestinal: Melena; No: Nausea, Vomiting, Abdominal Pain, Diarrhea, Constipation, Hematochezia, Other Genitourinary: No Dysuria, No Frequency, No Incontinence, No Hematuria, No Retention, No Other Musculoskeletal: No: other, neck pain, shoulder pain, arm pain, back pain, hand pain, leg pain, foot pain Skin: No: Rash, Lesions, Jaundice, Bruising, Other Neurological: No: Weakness, Numbness, Incoordination, Change in speech, Confusion, Seizures, Other Allergies: Coded Allergies: No Known Drug Allergy (Verified Allergy, Unknown, 08/25/15) Medications Current Medications Medications Dose Ordered Sig/Anish Route Start Time Stop Time Status Last Admin Dose Admin Norepinephrine Bitartrate 250 ml @ 3.75 mls/hr Q24H IV 05/30/24 19:45 05/30/24 20:40 3.75 MLS/HR Nitroglycerin 0.4 mg Q5MINP PRN SL 05/30/24 23:15 Morphine Sulfate 2 mg Q30M PRN IV 05/30/24 23:15 Acetaminophen 650 mg Q6HP PRN PO 05/30/24 23:15 Albuterol 2.5 mg Q4HPRN PRN NEB 05/30/24 23:15 Ipratropium [place] 0.5 mg Q4HP PRN NEB 05/30/24 23:15 Piperacillin Sod/ Tazobactam Sod 100 ml @ 100 mls/hr BID IV 05/31/24 10:00 Diagnostic Test (Pha) 1 strip Q6HR 05/31/24 00:00 05/31/24 00:09 1 STRIP Insulin Human Regular Q6HR SC 05/31/24 00:00 05/31/24 00:13 4 UNITS Dextrose 50 ml UD PRN IV 05/30/24 23:15 Mycophenolate Mofetil 500 mg BID PO 05/31/24 10:00 Exam Vital Signs Vital Signs Date Time Temp Pulse Resp B/P (MAP) Pulse Ox O2 Delivery O2 Flow Rate FiO2 05/31/24 02:30 93/50 05/31/24 02:30 85 17 100 05/31/24 00:07 97.0 15.0 97.0 05/30/24 20:45 Non-Rebreather N/A General Appearance: moderate distress, Other (Patient responds when addressed) HEENT: Atraumatic, PERRLA, EOMI Respiratory: Other (Diminished air movement) Cardiovascular: Regular rate, Normal S1, Normal S2 Abdominal: Normal bowel sounds, Soft, No tenderness Extremities: No clubbing, No cyanosis, No edema Skin: No breakdown Labs/Xrays Labs Test 05/31/24 00:23 05/31/24 00:08 05/30/24 21:37 05/30/24 21:15 Range/Units Troponin I High Sensitivity 60 *H </=54 ng/L POC Glucose 242 H 70-106 mg/dl White Blood Count 7.8 4.4-10.8 10^3/uL Red Blood Count 3.29 L 4.5-5.90 10^6/uL Hemoglobin 7.1 L 13.5-17.5 g/dL Hematocrit 22.8 L 41.0-53.0 % Mean Corpuscular Volume 69.3 L 80.0-100.0 fL Mean Corpuscular Hemoglobin 21.7 L 28.0-32.0 pg Mean Corpuscular Hemoglobin Concent 31.3 L 32.0-36.0 g/dL Red Cell Distribution Width 26.0 H 11.8-14.3 % Platelet Count 135 L 140-450 10^3/uL Mean Platelet Volume 8.3 6.9-10.8 fL Neutrophils (%) (Auto) 60.8 37.0-80.0 % Lymphocytes (%) (Auto) 23.5 10.0-50.0 % Monocytes (%) (Auto) 14.5 H 0.0-12.0 % Eosinophils (%) (Auto) 0.1 0.0-7.0 % Basophils (%) (Auto) 1.1 0.0-2.0 % Neutrophils # (Auto) 4.7 1.6-8.6 10 ^3/uL Lymphocytes # (Auto) 1.8 0.4-5.4 10 ^3/uL Monocytes # (Auto) 1.1 0-1.3 10 ^3/uL Eosinophils # (Auto) 0 0-0.8 10 ^3/uL Basophils # (Auto) 0.1 0-0.2 10 ^3/uL Nucleated Red Blood Cells 0.6 % Platelet Estimate Decreased Hypochromasia (manual) Moderate Anisocytosis (manual) Moderate Microcytosis Marked Ovalocytes Moderate Schistocytes Moderate Urine Color Dark-brown Yellow Urine Clarity Ex.turbid Clear Urine pH 6.0 5.0-9.0 Urine Specific [place] 1.014 1.001-1.035 Urine Protein 2+ H Negative Urine Ketones 1+ H Negative Urine Blood 3+ H Negative /uL Urine Nitrite Negative Negative Urine Bilirubin Negative Negative Urine Urobilinogen Normal Negative mg/dL Urine Leukocyte Esterase 3+ Negative /uL Urine RBC 202 0 - 3 /hpf Urine WBC Clumps Present None Seen /hpf Urine Microscopic WBC 5302 H 0-3 /HPF Urine Squamous Epithelial Cells None seen <5 /hpf Urine Bacteria None seen None Seen /hpf Urine Yeast (Budding) Moderate None Seen /hpf Urine Glucose 1+ H Normal mg/dL Test 1/25/25 20:45 05/30/24 18:21 05/30/24 18:06 Range/Units Influenza Type A Antigen Negative Negative Influenza Type B Antigen Negative Negative SARS-CoV-2 Antigen (Rapid) Negative NEGATIVE Stool Occult Blood Negative Negative Stool Occult Blood Sample #3 Negative Prothrombin Time 12.4 H 9.3-11.8 sec Prothrombin Time INR 1.19 H 0.9-1.15 Sodium Level 141 136-145 mmol/L Potassium Level 3.5 3.5-5.1 mmol/L Chloride Level 103 98-107 mmol/L Carbon Dioxide Level 28 20-31 mmol/L Anion Gap 10 5-15 Blood Urea Nitrogen 19 9-23 mg/dL Creatinine 2.47 H 0.700-1.30 mg/dL Glomerular Filtration Rate Calc 26 >90 mL/min BUN/Creatinine Ratio 7.7 L 10.0-20.0 Serum Glucose 238 H 74-106 mg/dL Lactic Acid Level 2.0 0.4-2.0 mmol/L Calcium Level 8.5 L 8.7-10.4 mg/dL Magnesium Level 1.4 L 1.6-2.6 mg/dL Total Bilirubin 0.6 0.2-1.0 mg/dL Aspartate Amino Transferase (AST) 14 13-40 U/L Alanine Aminotransferase (ALT) 12 7-40 U/L Alkaline Phosphatase 67 46-116 U/L Total Protein 5.7 5.7-8.2 g/dL Albumin 3.4 3.2-4.8 g/dL Assessment/Plan Assessment/Plan Anemia R/o GI bleed Acute on chronic respiratory failure with hypoxia COPD exacerbation Hypotension requiring vasopressors UTI with hematuria infection CKD, HD catheter in place. Elevated troponin DM with hyperglycemia HX bladder cancer Hx left lung transplant Hx AFIB Plan Admit ICU Gastroenterology consult. Occult stool. Monitor H&H every six hours. Transfuse PRBC for Hgb less than seven. Consult pulmonology. Bronchodilators. As needed supplemental O2 to maintain O2 saturation greater Than 93%. RT monitoring. Consult infectious disease. Blood cultures pending. Urine culture pending. IV ABX. Cardiology consult. Echocardiogram. Vasopressors to maintain MAP > 65. IVF Blood glucose check every six hours with regular insulin sliding scale coverage Continue home medication after medication reconciliation completed. GI ppx protonix. / DVT ppx SCD. Will hold anticoagulation due to possible G.I. bleed and anemia Condition critical prognosis guarded Attempted to contact patient daughter via telephone To discuss patient condition plan care. However there was no answer. Plan discussed with: Patient My Orders Orders - ANUJA ZURITA NP Procedure Category Date Status Time Hemoglobin & LAB 05/31/24 Logged Hematocrit 06:00 Hemoglobin & LAB 05/31/24 Logged Hematocrit 12:00 Hemoglobin & LAB 05/31/24 Logged Hematocrit 18:00 Hemoglobin & LAB 06/01/24 Verified Hematocrit 00:00 Hemoglobin & LAB 06/01/24 Verified Hematocrit 06:00 Hemoglobin & LAB 06/01/24 Verified Hematocrit 12:00 Hemoglobin & LAB 06/01/24 Verified Hematocrit 18:00 Admit ADMIT 05/30/24 Transmitted 23:15 Code Status CODE 05/30/24 Transmitted 23:15 Vital Signs [facility] 05/30/24 In Process 23:15 Review Orders With [facility] 05/30/24 In Process Adm. 23:15 Notify Md Of Changes [facility] 05/30/24 In Process From Base 23:15 Advance Directive [facility] 05/30/24 In Process 23:15 Patient Condition ORDERS 05/30/24 Transmitted 23:15 Allergies [facility] 05/30/24 In Process 23:15 Nitroglycerin [facility] 05/30/24 In Process Sublingual (Ntrostat 23:15 Morphine Sulfate PHA 05/30/24 In Process Injection 23:15 Stat Ekg For Chest [facility] 05/30/24 In Process Pain 23:15 Notify Of Changes [facility] 05/30/24 In Process From Base 23:15 [address] For [facility] 05/30/24 In Process 24 Hours 23:15 Emergency Dysrhythmia [facility] 05/30/24 In Process Protocol 23:15 Rhythm Strips Once [facility] 05/30/24 In Process Every Shift 23:15 Oxygen By Nasal RT 05/30/24 Transmitted Cannula 23:15 Complete Blood Count LAB 05/31/24 Logged 05:00 Complete Blood Count LAB 06/01/24 Verified 05:00 Complete Blood Count LAB 06/02/24 Verified 05:00 Complete Blood Count LAB 06/03/24 Verified 05:00 Complete Blood Count LAB 06/04/24 Verified 05:00 Basic Metabolic Panel LAB 05/31/24 Logged 05:00 Basic Metabolic Panel LAB 06/01/24 Verified 05:00 Basic Metabolic Panel LAB 06/02/24 Verified 05:00 Basic Metabolic Panel LAB 06/03/24 Verified 05:00 Basic Metabolic Panel LAB 06/04/24 Verified 05:00 *Consult CONS 05/30/24 Transmitted / 23:15 * Cardiology Consult CONS 05/30/24 Transmitted 23:15 *[facility] CONS 05/30/24 Transmitted 23:15 *Dr. [facility] CONS 05/30/24 Transmitted -[place] 23:15 Acetaminophen Tablet PHA 05/30/24 In Process (Tylenol Tablet) 23:15 Albuterol Medneb PHA 05/30/24 In Process (Ventolin Medneb) 23:15 Ipratropium Medneb PHA 05/30/24 In Process (Atrovent Medneb) 23:15 Echo 2d Mode Cardiac US 05/30/24 Logged DOP 23:15 Communication Order ORDERS 05/30/24 Transmitted 23:15 Communication Order ORDERS 05/30/24 Transmitted 23:15 Pantoprazole PHA 05/30/24 In Process 40mg/50ml Ns Ae 23:15 Sodium Chloride 0.9% PHA 05/30/24 In Process 23:15 Piperacillin-Tazob PHA 05/31/24 In Process 3.375gm (Zosyn 3.375g 10:00 Glucose Blood PHA 05/31/24 In Process (Accu-Chek Comfort 00:00 Insulin R (Human) PHA 05/31/24 In Process (Insulin R) 00:00 Dextrose 50% Syringe PHA 05/30/24 In Process 23:15 Mycophenolate Mofetil PHA 05/31/24 In Process (Cellcept) 10:00 Communication Order ORDERS 05/30/24 Transmitted 23:15 Iron Panel LAB 05/31/24 Logged 04:00 Troponin-I Hs LAB 05/31/24 Logged 04:00 Troponin-I Hs LAB 05/31/24 Logged 10:00 Date of Service: May 31, 2024 Billing Provider: HERRERA ENRIQUEZ MD Common Visit Codes: NOT BILLABLE HERRERA ENRIQUEZ MD 05/31/24 1146: Review of Systems Allergies: Coded Allergies: No Known Drug Allergy (Verified Allergy, Unknown, 08/25/15) Assessment/Plan Assessment/Plan Patient's chart is reviewed. Seen and evaluated by me this afternoon. Patient is seen and evaluated and admitted by nurse practitioner this morning. I agree with the nurse practitioner's evaluation, documentation, assessment and care kiana n as outlined. ANUJA ZURITA NP May 31, 2024 03:21 HERRERA ENRIQUEZ MD May 31, 2024 11:46
[2024-05-31] MEDS: MAGNESIUM SULFATE 1GM/100ML 100 ML IV ONE (03:23)
[2024-05-31 06:36] LABS: Hematocrit 28.4 % (41.0-53.0); Hemoglobin 8.7 g/dL (13.5-17.5)
[2024-05-31] MEDS: IPRATROPIUM BROM 0.5 MG/2.5ML INH SOL NEB PRN (07:46)
[2024-05-31 08:21] LABS: Eosinophils # (auto) 0.1 10 ^3/uL (0-0.8); Lymphocytes # (auto) 2.5 10 ^3/uL (0.4-5.4)
[2024-05-31 08:24] LABS: Basophils # (auto) 0 10 ^3/uL (0-0.2); Basophils % (auto) 0.4 % (0.0-2.0); Eosinophils % (auto) 0.8 % (0.0-7.0); Hemoglobin 8.2 g/dL (13.5-17.5); Lymphocytes % (auto) 26.7 % (10.0-50.0); Mean Corpuscular Hemoglobin 21.5 pg (28.0-32.0); Mean Corpuscular Hgb Conc. 30.4 g/dL (32.0-36.0); Mean Corpuscular Volume 70.6 fL (80.0-100.0); Monocytes % (auto) 10.9 % (0.0-12.0); Neutrophils # (auto) 5.6 10 ^3/uL (1.6-8.6); Neutrophils % (auto) 61.2 % (37.0-80.0); Nucleated Red Blood Cells % 0.2 %; Platelet Count (auto) 150 10^3/uL (140-450); Red Blood Cells 3.82 10^6/uL (4.5-5.90); White Blood Cell 9.2 10^3/uL (4.4-10.8)
[2024-05-31 08:29] LABS: Red Cell Distribution Width 26.6 % (11.8-14.3)
[2024-05-31 08:36] LABS: Anion Gap 11 (5-15); Carbon Dioxide 26 mmol/L (20-31); Chloride 103 mmol/L (98-107); Sodium 140 mmol/L (136-145)
[2024-05-31 08:42] LABS: BUN/Creatinine Ratio 8.2 (10.0-20.0); Blood Urea Nitrogen 20 mg/dL (9-23)
[2024-05-31 08:43] LABS: Calcium 8.2 mg/dL (8.7-10.4); Glucose 107 mg/dL (74-106); Potassium 3.5 mmol/L (3.5-5.1)
[2024-05-31 08:53] LABS: % Iron Saturation 12.4 % (20-55)
--- NOTE | 2024-05-31 09:16 | DVHINCON2 ---
Date of service: May 31, 2024 Referring Physician Marques Nelson, nurse practitioner Reason for Consultation Acute kidney injury History of Present Illness Patient is 78-year-old male with past medical history of COPD, CKD, DM2, hypertension, AFIB, lung transplant, and Bladder mass is admitted for generalized weakness, shortness of breath and elevated glucose. On admission patient found to have elevated BUN creatinine nephrology is consulted for acute kidney injury Past Medical History COPD, CKD, DM2, hypertension, AFIB, lung transplant, Bladder mass Past Surgical History Lungs transplant Allergies: Coded Allergies: No Known Drug Allergy (Verified Allergy, Unknown, 08/25/15) Home Meds Active Scripts Amoxicillin & Pot Clavulanate (AUGMENTIN TABLET) 875 Mg Tb, 875 MG PO BID for 10 Days, #20 TAB Prov:SANDY HEWITT MD 03/14/24 Apixaban Base (ELIQUIS) 2.5 Mg Tab, 2.5 MG PO BID for 30 Days, #60 TAB Prov:SANDY HEWITT MD 03/14/24 Hydrocodone-Acetaminophen (Hydrocodone Bitartrate/AC 5-325 mg) 1 Tab Tab, 1 TAB PO Q8HPRN PRN, #14 TAB Prov:HERRERA ENRIQUEZ MD 03/09/24 Calcium Citrate-Vitamin D (Calcitrate Plus D 315-200 mg-Unit) 1 Tab Tab, 1 TAB PO BID, #90 TAB Prov:HERRERA ENRIQUEZ MD 03/09/24 Cyclobenzaprine Hcl (Cyclobenzaprine Hcl) 5 Mg Tab, 1 TAB PO TID, #30 TAB Prov:HERRERA ENRIQUEZ MD 03/09/24 Reported Medications Hydrochlorothiazide (Hydrochlorothiazide) 12.5 Mg Cap, 12.5 MG PO DAILY, CAP 03/13/24 Losartan Potassium (Losartan Potassium) 50 Mg Tab, 50 MG PO DAILY, MG 03/13/24 Amlodipine Besylate (Amlodipine Besylate) 10 Mg Tab, 10 MG PO DAILY, TAB 03/13/24 Metoprolol Tartrate (Lopressor) 25 Mg Tb, 25 MG PO Q12HR, TAB 03/13/24 Nateglinide (Nateglinide) 120 Mg Tab, 120 MG PO TIDWM, TAB 03/13/24 Insulin Lispro (Humalog Kwikpen) 100 Unit/Ml Inj, 5 UNIT SC AC, INJ 03/13/24 Everolimus (Everolimus) 0.5 Mg Tab, 4 TAB PO BIDAC, TAB 03/13/24 Prednisone (Prednisone) 2.5 Mg Tab, 2.5 MG PO TID, TAB 03/13/24 Mycophenolate Mofetil (Mycophenolate Mofetil) 250 Mg Cap, 500 MG PO BID, CAP 03/13/24 Tamsulosin Hcl (Tamsulosin Hcl) 0.4 Mg Cap, 0.8 MG PO QPM for 30 Days, MG 12/31/16 Pantoprazole Sodium (PANTOPRAZOLE SODIUM) 40 Mg Inj, 40 MG PO DAILY, INJ 12/31/16 Multiple Vitamin (Multivitamins) Cap, 1 CAP PO DAILY, #30 CAP 3 Refills 12/31/16 Insulin Detemir (Levemir Flextouch) 100 Unit/Ml Inj, 20 UNIT SC HS, INJ 12/31/16 Gabapentin (Gabapentin) 100 Mg Cap, 100 MG PO BID 12/31/16 Finasteride (Finasteride) 5 Mg Tab, 5 MG PO HS for 30 Days, MG 12/31/16 Entecavir Monohydrate (Entecavir) 0.5 Mg Tab, 0.5 MG PO Q72HR, TAB 12/31/16 Atorvastatin Calcium (ATORVASTATIN CALCIUM) 20 Mg Tab, 20 MG PO HS, TAB 12/31/16 Current Medications Current Medications Medications (Trade) Dose Ordered Sig/Anish Route PRN Reason Start Time Stop Time Status Last Admin Norepinephrine Bitartrate 250 ml @ 3.75 mls/hr Q24H IV 05/30/24 19:45 05/30/24 20:40 Nitroglycerin (Ntrostat Sublingual) 0.4 mg Q5MINP PRN SL FOR CHEST PAIN 05/30/24 23:15 Morphine Sulfate 2 mg Q30M PRN IV FOR CHEST PAIN 05/30/24 23:15 Acetaminophen (Tylenol Tablet) 650 mg Q6HP PRN PO fever, mild pain 05/30/24 23:15 05/31/24 10:38 Albuterol (Ventolin Medneb) 2.5 mg Q4HPRN PRN NEB SHORTNESS OF BREATH 05/30/24 23:15 Ipratropium [place] (Atrovent Medneb) 0.5 mg Q4HP PRN NEB SHORTNESS OF BREATH 05/30/24 23:15 05/31/24 07:46 Piperacillin Sod/ Tazobactam Sod 100 ml @ 100 mls/hr BID IV 05/31/24 10:00 05/31/24 10:29 Diagnostic Test (Pha) (Accu-Chek Comfort Curve T) 1 strip Q6HR 05/31/24 00:00 05/31/24 06:08 Insulin Human Regular (InsuLIN R) Q6HR SC 05/31/24 00:00 05/31/24 00:13 Dextrose 50 ml UD PRN IV Blood Sugar LESS THAN 60 05/30/24 23:15 Mycophenolate Mofetil (Cellcept) 500 mg BID PO 05/31/24 10:00 05/31/24 10:29 Pantoprazole Sodium 50 ml @ 10 mls/hr Q5H IV 05/31/24 03:00 05/31/24 03:10 DC Lorazepam (Ativan Tablet) 0.5 mg Q8HP PRN PO ANXIETY 05/31/24 09:30 05/31/24 10:29 Family History: Cerebrovascular accident (CVA) G8 FATHER Diabetes mellitus G8 MOTHER FHx: cancer G8 MOTHER Review of Systems All 12 item review of systems reviewed with the patient nonsignificant except what is mentioned in the history of present illness H&P Exam Vital Signs/I&O Vital Sign Date Time Temp Pulse Resp B/P (MAP) Pulse Ox O2 Delivery O2 Flow Rate FiO2 05/31/24 10:38 103.1 05/31/24 09:15 123 05/31/24 07:52 20 94 05/31/24 07:46 Nasal Cannula* 3 32 05/31/24 07:39 112/55 Intake and Output 05/30/24 05/31/24 19:00 07:00 Intake Total 697.50 ml Balance 697.50 ml Intake IV Total 697.50 ml Physical Exam Moderate respiratory distress O2 nasal cannula Lungs clear to auscultation bilaterally Cardiac exam tachycardia GI soft nontender was normal Extremities no clubbing cyanosis or edema Neuro nonfocal Labs/Diagnostic Data Labs/Diagnostic Data Laboratory Tests Test 05/31/24 09:45 05/31/24 07:33 05/31/24 06:08 05/31/24 06:06 Range/Units Troponin I High Sensitivity 43 46 </=54 ng/L White Blood Count 9.2 4.4-10.8 10^3/uL Red Blood Count 3.82 L 4.5-5.90 10^6/uL Hemoglobin 8.2 L 8.7 #L 13.5-17.5 g/dL Hematocrit 27.0 L 28.4 #L 41.0-53.0 % Mean Corpuscular Volume 70.6 L 80.0-100.0 fL Mean Corpuscular Hemoglobin 21.5 L 28.0-32.0 pg Mean Corpuscular Hemoglobin Concent 30.4 L 32.0-36.0 g/dL Red Cell Distribution Width 26.6 H 11.8-14.3 % Platelet Count 150 140-450 10^3/uL Mean Platelet Volume 8.8 6.9-10.8 fL Neutrophils (%) (Auto) 61.2 37.0-80.0 % Lymphocytes (%) (Auto) 26.7 10.0-50.0 % Monocytes (%) (Auto) 10.9 0.0-12.0 % Eosinophils (%) (Auto) 0.8 0.0-7.0 % Basophils (%) (Auto) 0.4 0.0-2.0 % Neutrophils # (Auto) 5.6 1.6-8.6 10 ^3/uL Lymphocytes # (Auto) 2.5 0.4-5.4 10 ^3/uL Monocytes # (Auto) 1.0 0-1.3 10 ^3/uL Eosinophils # (Auto) 0.1 0-0.8 10 ^3/uL Basophils # (Auto) 0 0-0.2 10 ^3/uL Nucleated Red Blood Cells 0.2 % Platelet Estimate [place] Large Platelets Few Giant Platelets Few Hypochromasia (manual) Moderate Anisocytosis (manual) Moderate Microcytosis Moderate Target Cells Few Ovalocytes Few Dona Cells Few D-Dimer, Quantitative 6.75 H 0.0-0.49 mg/L FEU Sodium Level 140 136-145 mmol/L Potassium Level 3.5 3.5-5.1 mmol/L Chloride Level 103 98-107 mmol/L Carbon Dioxide Level 26 20-31 mmol/L Anion Gap 11 5-15 Blood Urea Nitrogen 20 9-23 mg/dL Creatinine 2.44 H 0.700-1.30 mg/dL Glomerular Filtration Rate Calc 26 >90 mL/min BUN/Creatinine Ratio 8.2 L 10.0-20.0 Serum Glucose 107 #H 74-106 mg/dL Calcium Level 8.2 L 8.7-10.4 mg/dL Iron Level 21 L 65-175 ug/dL Total Iron Binding Capacity 169 L 250-425 ug/dL Percent Iron Saturation 12.4 L 20-55 % POC Glucose 123 H 70-106 mg/dl Test 05/31/24 00:23 05/31/24 00:08 05/30/24 21:37 05/30/24 21:15 Range/Units Troponin I High Sensitivity 60 *H 72 *H </=54 ng/L POC Glucose 242 H 70-106 mg/dl White Blood Count 7.8 4.4-10.8 10^3/uL Red Blood Count 3.29 L 4.5-5.90 10^6/uL Hemoglobin 7.1 L 13.5-17.5 g/dL Hematocrit 22.8 L 41.0-53.0 % Mean Corpuscular Volume 69.3 L 80.0-100.0 fL Mean Corpuscular Hemoglobin 21.7 L 28.0-32.0 pg Mean Corpuscular Hemoglobin Concent 31.3 L 32.0-36.0 g/dL Red Cell Distribution Width 26.0 H 11.8-14.3 % Platelet Count 135 L 140-450 10^3/uL Mean Platelet Volume 8.3 6.9-10.8 fL Neutrophils (%) (Auto) 60.8 37.0-80.0 % Lymphocytes (%) (Auto) 23.5 10.0-50.0 % Monocytes (%) (Auto) 14.5 H 0.0-12.0 % Eosinophils (%) (Auto) 0.1 0.0-7.0 % Basophils (%) (Auto) 1.1 0.0-2.0 % Neutrophils # (Auto) 4.7 1.6-8.6 10 ^3/uL Lymphocytes # (Auto) 1.8 0.4-5.4 10 ^3/uL Monocytes # (Auto) 1.1 0-1.3 10 ^3/uL Eosinophils # (Auto) 0 0-0.8 10 ^3/uL Basophils # (Auto) 0.1 0-0.2 10 ^3/uL Nucleated Red Blood Cells 0.6 % Platelet Estimate Decreased Hypochromasia (manual) Moderate Anisocytosis (manual) Moderate Microcytosis Marked Ovalocytes Moderate Schistocytes Moderate Urine Color Dark-brown Yellow Urine Clarity Ex.turbid Clear Urine pH 6.0 5.0-9.0 Urine Specific [place] 1.014 1.001-1.035 Urine Protein 2+ H Negative Urine Ketones 1+ H Negative Urine Blood 3+ H Negative /uL Urine Nitrite Negative Negative Urine Bilirubin Negative Negative Urine Urobilinogen Normal Negative mg/dL Urine Leukocyte Esterase 3+ Negative /uL Urine RBC 202 0 - 3 /hpf Urine WBC Clumps Present None Seen /hpf Urine Microscopic WBC 5302 H 0-3 /HPF Urine Squamous Epithelial Cells None seen <5 /hpf Urine Bacteria None seen None Seen /hpf Urine Yeast (Budding) Moderate None Seen /hpf Urine Glucose 1+ H Normal mg/dL Test 05/30/24 20:45 05/30/24 19:33 05/30/24 18:21 05/30/24 18:06 Range/Units Influenza Type A Antigen Negative Negative Influenza Type B Antigen Negative Negative SARS-CoV-2 Antigen (Rapid) Negative NEGATIVE Troponin I High Sensitivity 62 *H 58 *H </=54 ng/L Stool Occult Blood Negative Negative Stool Occult Blood Sample #3 Negative Prothrombin Time 12.4 H 9.3-11.8 sec Prothrombin Time INR 1.19 H 0.9-1.15 Sodium Level 141 136-145 mmol/L Potassium Level 3.5 3.5-5.1 mmol/L Chloride Level 103 98-107 mmol/L Carbon Dioxide Level 28 20-31 mmol/L Anion Gap 10 5-15 Blood Urea Nitrogen 19 9-23 mg/dL Creatinine 2.47 H 0.700-1.30 mg/dL Glomerular Filtration Rate Calc 26 >90 mL/min BUN/Creatinine Ratio 7.7 L 10.0-20.0 Serum Glucose 238 H 74-106 mg/dL Lactic Acid Level 2.0 0.4-2.0 mmol/L Calcium Level 8.5 L 8.7-10.4 mg/dL Magnesium Level 1.4 L 1.6-2.6 mg/dL Total Bilirubin 0.6 0.2-1.0 mg/dL Aspartate Amino Transferase (AST) 14 13-40 U/L Alanine Aminotransferase (ALT) 12 7-40 U/L Alkaline Phosphatase 67 46-116 U/L Total Protein 5.7 5.7-8.2 g/dL Albumin 3.4 3.2-4.8 g/dL Assessment Acute kidney injury superimposed Chronic Kidney Disease secondary hemodynamic mediated Acute on chronic respiratory failure Congestive heart failure exacerbation AFib with RVR Diabetes mellitus type 2 Iron deficiency anemia Recommendations Closely monitor fluid and electrolytes Avoid nephrotoxic medications Strict I&Os Check urine electrolytes and protein excretion I agree with diuresis Iron replacement Resume home medications Cardiology consult Pulmonary consult GI consult rule out GI bleeding We will continue to follow Patient seen and examined by myself in the ER. I discussed my plan of care with the patient and the primary nurse at the bedside I would like to thank Marques for the consult, will follow up Plan discussed with: Patient SUDEEP GUILLEN MD May 31, 2024 09:16
[2024-05-31 09:23] LABS: Anisocytosis Moderate; Hypochromia Moderate
[2024-05-31 09:24] LABS: Giant Platelets Few; Large Platelets FEW; Ovalocytes FEW; Platelet Estimate Adequa; Target Cell FEW
--- NOTE | 2024-05-31 09:44 | DVHINCON2 ---
GI Consult Consult Note Date of Consultation: May 31, 2024 Chief Complaint: Anemia, suspect GI bleed Referring Physician: Omar H&P: Patient is a 78-year-old male with COPD, hypertension, atrial fibrillation on Eliquis, acute on chronic kidney disease, history of lung transplantation, diabetes, bladder mass, admitted with fever, shortness of breath, and history of melena found to be significantly anemic. Patient is not the best historian. GI consultation was obtained for evaluation. Patient had initial hemoglobin of 7.1 and after transfusion 8.2. Patient was initially placed on IV pressor therapy, given IV fluids and antibiotics. Past Medical History: As above Past Surgical History: 1. History of lung transplant left long Social History: Unable to be obtained Family History: Unable to be obtained Current Medications Medications (Trade) Dose Ordered Sig/Anish Route PRN Reason Start Time Stop Time Status Last Admin Norepinephrine Bitartrate 250 ml @ 3.75 mls/hr Q24H IV 05/30/24 19:45 05/30/24 20:40 Nitroglycerin (Ntrostat Sublingual) 0.4 mg Q5MINP PRN SL FOR CHEST PAIN 05/30/24 23:15 Morphine Sulfate 2 mg Q30M PRN IV FOR CHEST PAIN 05/30/24 23:15 Acetaminophen (Tylenol Tablet) 650 mg Q6HP PRN PO fever, mild pain 05/30/24 23:15 Albuterol (Ventolin Medneb) 2.5 mg Q4HPRN PRN NEB SHORTNESS OF BREATH 05/30/24 23:15 Ipratropium [place] (Atrovent Medneb) 0.5 mg Q4HP PRN NEB SHORTNESS OF BREATH 05/30/24 23:15 05/31/24 07:46 Piperacillin Sod/ Tazobactam Sod 100 ml @ 100 mls/hr BID IV 05/31/24 10:00 Diagnostic Test (Pha) (Accu-Chek Comfort Curve T) 1 strip Q6HR 05/31/24 00:00 05/31/24 06:08 Insulin Human Regular (InsuLIN R) Q6HR SC 05/31/24 00:00 05/31/24 00:13 Dextrose 50 ml UD PRN IV Blood Sugar LESS THAN 60 05/30/24 23:15 Mycophenolate Mofetil (Cellcept) 500 mg BID PO 05/31/24 10:00 Pantoprazole Sodium 50 ml @ 10 mls/hr Q5H IV 05/31/24 03:00 05/31/24 03:10 DC Lorazepam (Ativan Tablet) 0.5 mg Q8HP PRN PO ANXIETY 05/31/24 09:30 UNV Review of Systems: Twelve point review systems negative other than HPI Vital Signs Date Time Temp Pulse Resp B/P (MAP) Pulse Ox O2 Delivery O2 Flow Rate FiO2 05/31/24 09:15 123 05/31/24 07:52 20 94 05/31/24 07:46 Nasal Cannula* 3 32 05/31/24 07:39 112/55 05/31/24 00:07 97.0 97.0 Physical exam: General: Awake, mildly confused lying in bed no distress HEENT: PERRL, no scleral icterus, normal hearing, gums without lesions or bleeding, oropharynx clear without erythema or exudate. Neck: Supple without enlargement of the thyroid, or lymphadenopathy. Chest: Decreased breath sounds bilaterally anterior Heart: Regular rate irregular rhythm Abdomen: non-distended, no tenderness to palpation, +BS, no hepatosplenomegaly Extremities: no edema, no cyanosis Neurological: CN II-XII intact, sensation intact in all extremities, 5+ strength in all extremities, no asterixis Skin: No rashes, No jaundice Labs: Labs Test 05/31/24 07:33 05/31/24 06:08 05/30/24 21:37 05/30/24 21:15 Range/Units White Blood Count 9.2 4.4-10.8 10^3/uL Red Blood Count 3.82 L 4.5-5.90 10^6/uL Hemoglobin 8.2 L 13.5-17.5 g/dL Hematocrit 27.0 L 41.0-53.0 % Mean Corpuscular Volume 70.6 L 80.0-100.0 fL Mean Corpuscular Hemoglobin 21.5 L 28.0-32.0 pg Mean Corpuscular Hemoglobin Concent 30.4 L 32.0-36.0 g/dL Red Cell Distribution Width 26.6 H 11.8-14.3 % Platelet Count 150 140-450 10^3/uL Mean Platelet Volume 8.8 6.9-10.8 fL Neutrophils (%) (Auto) 61.2 37.0-80.0 % Lymphocytes (%) (Auto) 26.7 10.0-50.0 % Monocytes (%) (Auto) 10.9 0.0-12.0 % Eosinophils (%) (Auto) 0.8 0.0-7.0 % Basophils (%) (Auto) 0.4 0.0-2.0 % Neutrophils # (Auto) 5.6 1.6-8.6 10 ^3/uL Lymphocytes # (Auto) 2.5 0.4-5.4 10 ^3/uL Monocytes # (Auto) 1.0 0-1.3 10 ^3/uL Eosinophils # (Auto) 0.1 0-0.8 10 ^3/uL Basophils # (Auto) 0 0-0.2 10 ^3/uL Nucleated Red Blood Cells 0.2 % Platelet Estimate [place] Large Platelets Few Giant Platelets Few Hypochromasia (manual) Moderate Anisocytosis (manual) Moderate Microcytosis Moderate Target Cells Few Ovalocytes Few Dona Cells Few D-Dimer, Quantitative 6.75 H 0.0-0.49 mg/L FEU Sodium Level 140 136-145 mmol/L Potassium Level 3.5 3.5-5.1 mmol/L Chloride Level 103 98-107 mmol/L Carbon Dioxide Level 26 20-31 mmol/L Anion Gap 11 5-15 Blood Urea Nitrogen 20 9-23 mg/dL Creatinine 2.44 H 0.700-1.30 mg/dL Glomerular Filtration Rate Calc 26 >90 mL/min BUN/Creatinine Ratio 8.2 L 10.0-20.0 Serum Glucose 107 #H 74-106 mg/dL Calcium Level 8.2 L 8.7-10.4 mg/dL Iron Level 21 L 65-175 ug/dL Total Iron Binding Capacity 169 L 250-425 ug/dL Percent Iron Saturation 12.4 L 20-55 % Troponin I High Sensitivity 46 </=54 ng/L POC Glucose 123 H 70-106 mg/dl Schistocytes Moderate Urine Color Dark-brown Yellow Urine Clarity Ex.turbid Clear Urine pH 6.0 5.0-9.0 Urine Specific [place] 1.014 1.001-1.035 Urine Protein 2+ H Negative Urine Ketones 1+ H Negative Urine Blood 3+ H Negative /uL Urine Nitrite Negative Negative Urine Bilirubin Negative Negative Urine Urobilinogen Normal Negative mg/dL Urine Leukocyte Esterase 3+ Negative /uL Urine RBC 202 0 - 3 /hpf Urine WBC Clumps Present None Seen /hpf Urine Microscopic WBC 5302 H 0-3 /HPF Urine Squamous Epithelial Cells None seen <5 /hpf Urine Bacteria None seen None Seen /hpf Urine Yeast (Budding) Moderate None Seen /hpf Urine Glucose 1+ H Normal mg/dL Test 05/30/24 20:45 05/30/24 18:21 05/30/24 18:06 Range/Units Influenza Type A Antigen Negative Negative Influenza Type B Antigen Negative Negative SARS-CoV-2 Antigen (Rapid) Negative NEGATIVE Stool Occult Blood Negative Negative Stool Occult Blood Sample #3 Negative Prothrombin Time 12.4 H 9.3-11.8 sec Prothrombin Time INR 1.19 H 0.9-1.15 Lactic Acid Level 2.0 0.4-2.0 mmol/L Magnesium Level 1.4 L 1.6-2.6 mg/dL Total Bilirubin 0.6 0.2-1.0 mg/dL Aspartate Amino Transferase (AST) 14 13-40 U/L Alanine Aminotransferase (ALT) 12 7-40 U/L Alkaline Phosphatase 67 46-116 U/L Total Protein 5.7 5.7-8.2 g/dL Albumin 3.4 3.2-4.8 g/dL Imaging: No relevant Assessment: 78-year-old male with history of COPD, S/P left lung transplant, anemia, atrial fibrillation on anticoagulation, GI bleed with melena, acute on chronic kidney disease, diabetes, acute respiratory failure, hypotension, responding to IV pressor therapy, antibiotics, and oxygen therapy. Patient also with urinary tract infection. Prior GI history is not known at this time Plan: 1. Continue with Protonix 2. Follow H and H and transfuse as necessary 3. Hold anticoagulation 4. Continue with current antibiotics 5. Patient will need an EGD and possibly colonoscopy when he is stable 6. We will sign off to Dr. Burns tomorrow 7. Patient's MCV indicative of chronic iron-deficiency anemia, he will need iron supplementation Date of Service: May 31, 2024 Billing Provider: CRISTOFER CUMMINGS MD Common Visit Codes: [id number] INP/OBS CARE (HIGH) Consultation Codes: [id number] CONSULT <60MIN CRISTOFER CUMMINGS MD May 31, 2024 09:44
[2024-05-31] MEDS: LORazepam 0.5 MG TAB PO PRN (10:29)
[2024-05-31] MEDS: MYCOPHENOLATE 500 MG TAB PO SCH (10:29)
[2024-05-31] MEDS: PIPERACILLIN-TAZOB 3.375GM 100 ML IV SCH (10:29)
[2024-05-31] MEDS: ACETAMINOPHEN 325 MG TAB PO PRN (10:38)
[2024-05-31] MEDS: AMIODARONE BOLUS KIT 100 ML IV ONE (10:41)
[2024-05-31] MEDS ORDERED: [UNRECOGNIZED DRUG - OTHER] PO SCH (11:00)
[2024-05-31] MEDS: AMIODARONE 360mg/200mL PREMIX 200 ML IV ONE (11:18)
[2024-05-31] MEDS: SODIUM CHLORIDE 0.9% 1,000 ML IV SCH (11:45)
[2024-05-31 12:17] LABS: Hematocrit 22.3 % (41.0-53.0)
[2024-05-31 12:26] LABS: Hemoglobin 6.9 g/dL (13.5-17.5)
[2024-05-31 12:28] LABS: Urine Bacteria FEW /hpf (None Seen); Urine Blood 3+ /uL (Negative); Urine Clarity Turbid (Clear); Urine Color Light-Yellow (Yellow); Urine Protein, UAD 2+ (Negative); Urine Specific Gravity 1.013 (1.001-1.035); Urine Squamous Epithelial Cell None Seen /hpf (<5); Urine Urobilinogen Normal (Negative); Urine WBC 493 /HPF (0-3); Urine WBC Clumps PRESENT /hpf (None Seen)
[2024-05-31] MEDS: FUROSEMIDE 20 MG/2 ML VIAL IV ONE (13:45)
[2024-05-31] MEDS: predniSONE 5 MG TAB PO SCH (14:00)
[2024-05-31] MEDS: AMIODARONE 360mg/200mL PREMIX 200 ML IV SCH (15:45)
--- NOTE | 2024-05-31 16:29 | DVHINCON2 ---
Date of service: May 31, [address] Loaiza History of Present Illness Patient is a 78-year-old male presented to the hospital for the complaint of hypoxia and black stool for the past 1 day. Information in the HPI is limited due to the patient's current cognitive status. Upon admission, Patient's oxygen saturation was in the 75s and brought into the emergency department on 15 L nonrebreather. Additionally patient was found to be fever with the temperature 102 And hypotensive requiring vasopressors. Patient was initially placed on IV pressor therapy, given IV fluids and antibiotics. he is in Afib with RVR Upon admission, patient's BUN creatinine was elevated most information obtained from chart Past Medical History Patient's past medical history is significant for COPD, CD, DM2, hypertension, AFIB, left lung transplant and Bladder mass. Family History: Cerebrovascular accident (CVA) G8 FATHER Diabetes mellitus G8 MOTHER FHx: cancer G8 MOTHER Social History Lives: with Family Allergies: Coded Allergies: No Known Drug Allergy (Verified Allergy, Unknown, 08/25/15) Home Meds Active Scripts Amoxicillin & Pot Clavulanate (AUGMENTIN TABLET) 875 Mg Tb, 875 MG PO BID for 10 Days, #20 TAB Prov:SANDY HEWITT MD 03/14/24 Apixaban Base (ELIQUIS) 2.5 Mg Tab, 2.5 MG PO BID for 30 Days, #60 TAB Prov:SANDY HEWITT MD 03/14/24 Hydrocodone-Acetaminophen (Hydrocodone Bitartrate/AC 5-325 mg) 1 Tab Tab, 1 TAB PO Q8HPRN PRN, #14 TAB Prov:HERRERA ENRIQUEZ MD 03/09/24 Calcium Citrate-Vitamin D (Calcitrate Plus D 315-200 mg-Unit) 1 Tab Tab, 1 TAB PO BID, #90 TAB Prov:HERRERA ENRIQUEZ MD 03/09/24 Cyclobenzaprine Hcl (Cyclobenzaprine Hcl) 5 Mg Tab, 1 TAB PO TID, #30 TAB Prov:HERRERA ENRIQUEZ MD 03/09/24 Reported Medications Hydrochlorothiazide (Hydrochlorothiazide) 12.5 Mg Cap, 12.5 MG PO DAILY, CAP 03/13/24 Losartan Potassium (Losartan Potassium) 50 Mg Tab, 50 MG PO DAILY, MG 03/13/24 Amlodipine Besylate (Amlodipine Besylate) 10 Mg Tab, 10 MG PO DAILY, TAB 03/13/24 Metoprolol Tartrate (Lopressor) 25 Mg Tb, 25 MG PO Q12HR, TAB 03/13/24 Nateglinide (Nateglinide) 120 Mg Tab, 120 MG PO TIDWM, TAB 03/13/24 Insulin Lispro (Humalog Kwikpen) 100 Unit/Ml Inj, 5 UNIT SC AC, INJ 03/13/24 Everolimus (Everolimus) 0.5 Mg Tab, 4 TAB PO BIDAC, TAB 03/13/24 Prednisone (Prednisone) 2.5 Mg Tab, 2.5 MG PO TID, TAB 03/13/24 Mycophenolate Mofetil (Mycophenolate Mofetil) 250 Mg Cap, 500 MG PO BID, CAP 03/13/24 Tamsulosin Hcl (Tamsulosin Hcl) 0.4 Mg Cap, 0.8 MG PO QPM for 30 Days, MG 12/31/16 Pantoprazole Sodium (PANTOPRAZOLE SODIUM) 40 Mg Inj, 40 MG PO DAILY, INJ 12/31/16 Multiple Vitamin (Multivitamins) Cap, 1 CAP PO DAILY, #30 CAP 3 Refills 12/31/16 Insulin Detemir (Levemir Flextouch) 100 Unit/Ml Inj, 20 UNIT SC HS, INJ 12/31/16 Gabapentin (Gabapentin) 100 Mg Cap, 100 MG PO BID 12/31/16 Finasteride (Finasteride) 5 Mg Tab, 5 MG PO HS for 30 Days, MG 12/31/16 Entecavir Monohydrate (Entecavir) 0.5 Mg Tab, 0.5 MG PO Q72HR, TAB 12/31/16 Atorvastatin Calcium (ATORVASTATIN CALCIUM) 20 Mg Tab, 20 MG PO HS, TAB 12/31/16 Current Medications Current Medications Medications (Trade) Dose Ordered Sig/Anish Route PRN Reason Start Time Stop Time Status Last Admin Norepinephrine Bitartrate 250 ml @ 3.75 mls/hr Q24H IV 05/30/24 19:45 05/30/24 20:40 Nitroglycerin (Ntrostat Sublingual) 0.4 mg Q5MINP PRN SL FOR CHEST PAIN 05/30/24 23:15 Morphine Sulfate 2 mg Q30M PRN IV FOR CHEST PAIN 05/30/24 23:15 Acetaminophen (Tylenol Tablet) 650 mg Q6HP PRN PO fever, mild pain 05/30/24 23:15 05/31/24 10:38 Albuterol (Ventolin Medneb) 2.5 mg Q4HPRN PRN NEB SHORTNESS OF BREATH 05/30/24 23:15 Ipratropium [place] (Atrovent Medneb) 0.5 mg Q4HP PRN NEB SHORTNESS OF BREATH 05/30/24 23:15 05/31/24 07:46 Piperacillin Sod/ Tazobactam Sod 100 ml @ 100 mls/hr BID IV 05/31/24 10:00 05/31/24 10:29 Diagnostic Test (Pha) (Accu-Chek Comfort Curve T) 1 strip Q6HR 05/31/24 00:00 05/31/24 12:00 Insulin Human Regular (InsuLIN R) Q6HR SC 05/31/24 00:00 05/31/24 00:13 Dextrose 50 ml UD PRN IV Blood Sugar LESS THAN 60 05/30/24 23:15 Mycophenolate Mofetil (Cellcept) 500 mg BID PO 05/31/24 10:00 05/31/24 10:29 Pantoprazole Sodium 50 ml @ 10 mls/hr Q5H IV 05/31/24 03:00 05/31/24 03:10 DC Lorazepam (Ativan Tablet) 0.5 mg Q8HP PRN PO ANXIETY 05/31/24 09:30 05/31/24 10:29 Atorvastatin Calcium (Lipitor) 20 mg HS PO 05/31/24 22:00 Finasteride (Proscar Tablet) 5 mg HS PO 05/31/24 22:00 Gabapentin (Neurontin Capsule) 100 mg BID PO 05/31/24 22:00 Metoprolol Tartrate (Lopressor Tablet) 25 mg Q12HR PO 05/31/24 22:00 Tamsulosin HCl (Flomax) 0.8 mg QPM PO 05/31/24 18:00 Patient Own Medication 0.5 mg Q72HR PO 05/31/24 11:00 Patient Own Medication 4 tab BIDAC PO 05/31/24 17:00 Prednisone 2.5 mg TID PO 05/31/24 14:00 05/31/24 14:00 Sodium Chloride 1,000 ml @ 100 mls/hr Q10H IV 05/31/24 11:45 05/31/24 11:45 Review of Systems Unable to obtain due to patient's critical condition Vital Signs Vital Signs Date Time Temp Pulse Resp B/P (MAP) Pulse Ox O2 Delivery O2 Flow Rate FiO2 05/31/24 16:00 104 05/31/24 16:00 21 120/57 (78) 98 05/31/24 16:00 Nasal Cannula* 4 36 05/31/24 15:30 98.6 98.6 Physical Exam General: Awake, mildly confused lying in bed no distress HEENT: PERRL, no scleral icterus, normal hearing, gums without lesions or bleeding, oropharynx clear without erythema or exudate. Neck: Supple without enlargement of the thyroid, or lymphadenopathy. Chest: Decreased breath sounds bilaterally anterior Heart: Regular rate irregular rhythm Abdomen: non-distended, no tenderness to palpation, +BS, no hepatosplenomegaly Extremities: no edema, no cyanosis Neurological: CN II-XII intact, sensation intact in all extremities, 5+ strength in all extremities, no asterixis Skin: No rashes, No jaundice Labs/Diagnostic Data Labs Test 05/31/24 12:47 05/31/24 11:56 05/31/24 11:35 05/31/24 09:45 Range/Units POC Glucose 155 H 70-106 mg/dl Hemoglobin 6.9 #*L 13.5-17.5 g/dL Hematocrit 22.3 #L 41.0-53.0 % Lactic Acid Level 1.1 0.4-2.0 mmol/L Urine Color Light-yellow Yellow Urine Clarity Turbid H Clear Urine pH 6.0 5.0-9.0 Urine Specific [place] 1.013 1.001-1.035 Urine Protein 2+ H Negative Urine Ketones Trace Negative Urine Blood 3+ H Negative /uL Urine Nitrite Negative Negative Urine Bilirubin Negative Negative Urine Urobilinogen Normal Negative mg/dL Urine Leukocyte Esterase 3+ Negative /uL Urine RBC 35 0 - 3 /hpf Urine WBC Clumps Present None Seen /hpf Urine Microscopic WBC 493 H 0-3 /HPF Urine Squamous Epithelial Cells None seen <5 /hpf Urine Bacteria Few H None Seen /hpf Urine Glucose Normal Normal mg/dL Troponin I High Sensitivity 43 </=54 ng/L Test 05/31/24 07:33 05/30/24 21:37 05/30/24 21:15 05/30/24 20:45 Range/Units White Blood Count 9.2 4.4-10.8 10^3/uL Red Blood Count 3.82 L 4.5-5.90 10^6/uL Mean Corpuscular Volume 70.6 L 80.0-100.0 fL Mean Corpuscular Hemoglobin 21.5 L 28.0-32.0 pg Mean Corpuscular Hemoglobin Concent 30.4 L 32.0-36.0 g/dL Red Cell Distribution Width 26.6 H 11.8-14.3 % Platelet Count 150 140-450 10^3/uL Mean Platelet Volume 8.8 6.9-10.8 fL Neutrophils (%) (Auto) 61.2 37.0-80.0 % Lymphocytes (%) (Auto) 26.7 10.0-50.0 % Monocytes (%) (Auto) 10.9 0.0-12.0 % Eosinophils (%) (Auto) 0.8 0.0-7.0 % Basophils (%) (Auto) 0.4 0.0-2.0 % Neutrophils # (Auto) 5.6 1.6-8.6 10 ^3/uL Lymphocytes # (Auto) 2.5 0.4-5.4 10 ^3/uL Monocytes # (Auto) 1.0 0-1.3 10 ^3/uL Eosinophils # (Auto) 0.1 0-0.8 10 ^3/uL Basophils # (Auto) 0 0-0.2 10 ^3/uL Nucleated Red Blood Cells 0.2 % Platelet Estimate [place] Large Platelets Few Giant Platelets Few Hypochromasia (manual) Moderate Anisocytosis (manual) Moderate Microcytosis Moderate Target Cells Few Ovalocytes Few Dona Cells Few D-Dimer, Quantitative 6.75 H 0.0-0.49 mg/L FEU Sodium Level 140 136-145 mmol/L Potassium Level 3.5 3.5-5.1 mmol/L Chloride Level 103 98-107 mmol/L Carbon Dioxide Level 26 20-31 mmol/L Anion Gap 11 5-15 Blood Urea Nitrogen 20 9-23 mg/dL Creatinine 2.44 H 0.700-1.30 mg/dL Glomerular Filtration Rate Calc 26 >90 mL/min BUN/Creatinine Ratio 8.2 L 10.0-20.0 Serum Glucose 107 #H 74-106 mg/dL Calcium Level 8.2 L 8.7-10.4 mg/dL Iron Level 21 L 65-175 ug/dL Total Iron Binding Capacity 169 L 250-425 ug/dL Percent Iron Saturation 12.4 L 20-55 % Schistocytes Moderate Urine Yeast (Budding) Moderate None Seen /hpf Influenza Type A Antigen Negative Negative Influenza Type B Antigen Negative Negative SARS-CoV-2 Antigen (Rapid) Negative NEGATIVE Test 05/30/24 18:21 05/30/24 18:06 Range/Units Stool Occult Blood Negative Negative Stool Occult Blood Sample #3 Negative Prothrombin Time 12.4 H 9.3-11.8 sec Prothrombin Time INR 1.19 H 0.9-1.15 Magnesium Level 1.4 L 1.6-2.6 mg/dL Total Bilirubin 0.6 0.2-1.0 mg/dL Aspartate Amino Transferase (AST) 14 13-40 U/L Alanine Aminotransferase (ALT) 12 7-40 U/L Alkaline Phosphatase 67 46-116 U/L Total Protein 5.7 5.7-8.2 g/dL Albumin 3.4 3.2-4.8 g/dL Assessment Patient is a 78-year-old male presented to the hospital with: Hypotension likely due to Afib with RVR vs hypovolemia vs septic Bacteremia with GPC 1/2 bottles UTI with hematuria infection black stool Anemia R/o GI bleed Acute on chronic respiratory failure with hypoxia COPD exacerbation Hypotension requiring vasopressors CKD, HD catheter in place. Elevated troponin DM with hyperglycemia HX bladder cancer Hx left lung transplant Hx AFIB Recommendations: consider broad spectrum antibiotics Vancomycin and Zosyn, follow cultures On amiodarone drip On pressors for hemodynamic support On Levophed 05/30, Blood culture preliminary showed Gram Positive Cocci in clusters 1/2 bottles: ? contamination 05/30, Chest x-ray showed Right IJ approach hemodialysis catheter in satisfactory position. Pulmonary vascular congestion with right upper and lower lung zone atelectasis. He has h/o lung transplant on immunosuppressnats Critical Time: 35 minutes spent during the encounter Prognosis guarded Thank you for consult and for giving an opportunity to take care of this patient. Plan discussed with: MARTA Lorenzo MD May 31, 2024 16:29
[2024-05-31] MEDS: TAMSULOSIN HYDROCHLORIDE 0.4 MG CAP PO SCH (18:06)
--- NOTE | 2024-05-31 18:36 | DVHINCON2 ---
Date of service: May 31, 2024 Referring Physician ARIANE Nelson Reason for Consultation COPD exacerbation, acute on chronic hypoxic respiratory failure History of Present Illness 78-year-old man history of COPD, diabetes mellitus type 2, hypertension, atrial fibrillation, left lung transplant, bladder mass who presented with hypoxia and black stools for one day. Per EMS report they found patient with an O2 saturation of 75%. Initiated on 15 L non-rebreather. He was found to be febrile with a temperature of 102. He was hypotensive and required pressors. Pulmonary consultation is called due to acute on chronic hypoxic respiratory failure and acute exacerbation of COPD. Review of systems: Unable to obtain due to patient's critical condition Past medical history: COPD, hypertension, atrial fibrillation, cancer, chronic renal insufficiency, diabetes mellitus type 2 Past surgical history: History of lung transplant Medications: Reviewed Allergies: No known drug allergies. Family history: No family history of premature CAD. No family history of lung disease Social history: Nonsmoker. No alcohol or illicit drug use. Family History: Cerebrovascular accident (CVA) G8 FATHER Diabetes mellitus G8 MOTHER FHx: cancer G8 MOTHER Allergies: Coded Allergies: No Known Drug Allergy (Verified Allergy, Unknown, 08/25/15) Home Meds Active Scripts Amoxicillin & Pot Clavulanate (AUGMENTIN TABLET) 875 Mg Tb, 875 MG PO BID for 10 Days, #20 TAB Prov:SANDY HEWITT MD 03/14/24 Apixaban Base (ELIQUIS) 2.5 Mg Tab, 2.5 MG PO BID for 30 Days, #60 TAB Prov:SANDY HEWITT MD 03/14/24 Hydrocodone-Acetaminophen (Hydrocodone Bitartrate/AC 5-325 mg) 1 Tab Tab, 1 TAB PO Q8HPRN PRN, #14 TAB Prov:HERRERA ENRIQUEZ MD 03/09/24 Calcium Citrate-Vitamin D (Calcitrate Plus D 315-200 mg-Unit) 1 Tab Tab, 1 TAB PO BID, #90 TAB Prov:HERRERA ENRIQUEZ MD 03/09/24 Cyclobenzaprine Hcl (Cyclobenzaprine Hcl) 5 Mg Tab, 1 TAB PO TID, #30 TAB Prov:HERRERA ENRIQUEZ MD 03/09/24 Reported Medications Hydrochlorothiazide (Hydrochlorothiazide) 12.5 Mg Cap, 12.5 MG PO DAILY, CAP 03/13/24 Losartan Potassium (Losartan Potassium) 50 Mg Tab, 50 MG PO DAILY, MG 03/13/24 Amlodipine Besylate (Amlodipine Besylate) 10 Mg Tab, 10 MG PO DAILY, TAB 03/13/24 Metoprolol Tartrate (Lopressor) 25 Mg Tb, 25 MG PO Q12HR, TAB 03/13/24 Nateglinide (Nateglinide) 120 Mg Tab, 120 MG PO TIDWM, TAB 03/13/24 Insulin Lispro (Humalog Kwikpen) 100 Unit/Ml Inj, 5 UNIT SC AC, INJ 03/13/24 Everolimus (Everolimus) 0.5 Mg Tab, 4 TAB PO BIDAC, TAB 03/13/24 Prednisone (Prednisone) 2.5 Mg Tab, 2.5 MG PO TID, TAB 03/13/24 Mycophenolate Mofetil (Mycophenolate Mofetil) 250 Mg Cap, 500 MG PO BID, CAP 03/13/24 Tamsulosin Hcl (Tamsulosin Hcl) 0.4 Mg Cap, 0.8 MG PO QPM for 30 Days, MG 12/31/16 Pantoprazole Sodium (PANTOPRAZOLE SODIUM) 40 Mg Inj, 40 MG PO DAILY, INJ 12/31/16 Multiple Vitamin (Multivitamins) Cap, 1 CAP PO DAILY, #30 CAP 3 Refills 12/31/16 Insulin Detemir (Levemir Flextouch) 100 Unit/Ml Inj, 20 UNIT SC HS, INJ 12/31/16 Gabapentin (Gabapentin) 100 Mg Cap, 100 MG PO BID 12/31/16 Finasteride (Finasteride) 5 Mg Tab, 5 MG PO HS for 30 Days, MG 12/31/16 Entecavir Monohydrate (Entecavir) 0.5 Mg Tab, 0.5 MG PO Q72HR, TAB 12/31/16 Atorvastatin Calcium (ATORVASTATIN CALCIUM) 20 Mg Tab, 20 MG PO HS, TAB 12/31/16 Current Medications Current Medications Medications (Trade) Dose Ordered Sig/Anish Route PRN Reason Start Time Stop Time Status Last Admin Norepinephrine Bitartrate 250 ml @ 3.75 mls/hr Q24H IV 05/30/24 19:45 05/30/24 20:40 Nitroglycerin (Ntrostat Sublingual) 0.4 mg Q5MINP PRN SL FOR CHEST PAIN 05/30/24 23:15 Morphine Sulfate 2 mg Q30M PRN IV FOR CHEST PAIN 05/30/24 23:15 Acetaminophen (Tylenol Tablet) 650 mg Q6HP PRN PO fever, mild pain 05/30/24 23:15 05/31/24 10:38 Albuterol (Ventolin Medneb) 2.5 mg Q4HPRN PRN NEB SHORTNESS OF BREATH 05/30/24 23:15 Ipratropium [place] (Atrovent Medneb) 0.5 mg Q4HP PRN NEB SHORTNESS OF BREATH 05/30/24 23:15 05/31/24 07:46 Piperacillin Sod/ Tazobactam Sod 100 ml @ 100 mls/hr BID IV 05/31/24 10:00 05/31/24 10:29 Diagnostic Test (Pha) (Accu-Chek Comfort Curve T) 1 strip Q6HR 05/31/24 00:00 05/31/24 17:50 Insulin Human Regular (InsuLIN R) Q6HR SC 05/31/24 00:00 05/31/24 17:50 Dextrose 50 ml UD PRN IV Blood Sugar LESS THAN 60 05/30/24 23:15 Mycophenolate Mofetil (Cellcept) 500 mg BID PO 05/31/24 10:00 05/31/24 10:29 Pantoprazole Sodium 50 ml @ 10 mls/hr Q5H IV 05/31/24 03:00 05/31/24 03:10 DC Lorazepam (Ativan Tablet) 0.5 mg Q8HP PRN PO ANXIETY 05/31/24 09:30 05/31/24 10:29 Atorvastatin Calcium (Lipitor) 20 mg HS PO 05/31/24 22:00 Finasteride (Proscar Tablet) 5 mg HS PO 05/31/24 22:00 Gabapentin (Neurontin Capsule) 100 mg BID PO 05/31/24 22:00 Metoprolol Tartrate (Lopressor Tablet) 25 mg Q12HR PO 05/31/24 22:00 Tamsulosin HCl (Flomax) 0.8 mg QPM PO 05/31/24 18:00 05/31/24 18:06 Patient Own Medication 0.5 mg Q72HR PO 05/31/24 11:00 Patient Own Medication 4 tab BIDAC PO 05/31/24 17:00 Prednisone 2.5 mg TID PO 05/31/24 14:00 05/31/24 14:00 Sodium Chloride 1,000 ml @ 100 mls/hr Q10H IV 05/31/24 11:45 05/31/24 11:45 Vital Signs Vital Signs Date Time Temp Pulse Resp B/P (MAP) Pulse Ox O2 Delivery O2 Flow Rate FiO2 05/31/24 18:15 96 22 115/60 (78) 100 05/31/24 18:00 Nasal Cannula* 4 36 05/31/24 17:15 99.6 99.6 Physical Exam Gen.: Patient lying in bed in no apparent distress. On supplemental oxygen. Head: Normocephalic, atraumatic Eyes: EOMI/PERRLA. Ears: Normal hearing. Normal anatomy. Neck/trachea: Trachea midline, supple. Nose: Normal external anatomy. Mouth: Moist mucous membranes. Chest: Decreased air entry bilaterally. Bilateral wheezing . No rhonchi. Cardio vascular: Positive S1, positive S2. Regular rate and rhythm. Abdomen: Positive bowel sounds in all 4 quadrants. Soft, non-tender, non- distended. : Deferred. Rectal: Deferred Skin: Warm, dry. Extremities: 2+ radial pulses bilaterally. No lower extremity edema. Neuro: Awake, alert, oriented x3. No gross motor or sensory deficits. Cranial nerves II through XII intact. Gait not assessed. Labs/Diagnostic Data Labs Test 05/31/24 17:49 05/31/24 11:56 05/31/24 11:35 05/31/24 09:45 Range/Units POC Glucose 188 H 70-106 mg/dl Hemoglobin 6.9 #*L 13.5-17.5 g/dL Hematocrit 22.3 #L 41.0-53.0 % Lactic Acid Level 1.1 0.4-2.0 mmol/L Urine Color Light-yellow Yellow Urine Clarity Turbid H Clear Urine pH 6.0 5.0-9.0 Urine Specific Wilmer 1.013 1.001-1.035 Urine Protein 2+ H Negative Urine Ketones Trace Negative Urine Blood 3+ H Negative /uL Urine Nitrite Negative Negative Urine Bilirubin Negative Negative Urine Urobilinogen Normal Negative mg/dL Urine Leukocyte Esterase 3+ Negative /uL Urine RBC 35 0 - 3 /hpf Urine WBC Clumps Present None Seen /hpf Urine Microscopic WBC 493 H 0-3 /HPF Urine Squamous Epithelial Cells None seen <5 /hpf Urine Bacteria Few H None Seen /hpf Urine Glucose Normal Normal mg/dL Troponin I High Sensitivity 43 </=54 ng/L Test 05/31/24 07:33 05/30/24 21:37 05/30/24 21:15 05/30/24 20:45 Range/Units White Blood Count 9.2 4.4-10.8 10^3/uL Red Blood Count 3.82 L 4.5-5.90 10^6/uL Mean Corpuscular Volume 70.6 L 80.0-100.0 fL Mean Corpuscular Hemoglobin 21.5 L 28.0-32.0 pg Mean Corpuscular Hemoglobin Concent 30.4 L 32.0-36.0 g/dL Red Cell Distribution Width 26.6 H 11.8-14.3 % Platelet Count 150 140-450 10^3/uL Mean Platelet Volume 8.8 6.9-10.8 fL Neutrophils (%) (Auto) 61.2 37.0-80.0 % Lymphocytes (%) (Auto) 26.7 10.0-50.0 % Monocytes (%) (Auto) 10.9 0.0-12.0 % Eosinophils (%) (Auto) 0.8 0.0-7.0 % Basophils (%) (Auto) 0.4 0.0-2.0 % Neutrophils # (Auto) 5.6 1.6-8.6 10 ^3/uL Lymphocytes # (Auto) 2.5 0.4-5.4 10 ^3/uL Monocytes # (Auto) 1.0 0-1.3 10 ^3/uL Eosinophils # (Auto) 0.1 0-0.8 10 ^3/uL Basophils # (Auto) 0 0-0.2 10 ^3/uL Nucleated Red Blood Cells 0.2 % Platelet Estimate [place] Large Platelets Few Giant Platelets Few Hypochromasia (manual) Moderate Anisocytosis (manual) Moderate Microcytosis Moderate Target Cells Few Ovalocytes Few Dona Cells Few D-Dimer, Quantitative 6.75 H 0.0-0.49 mg/L FEU Sodium Level 140 136-145 mmol/L Potassium Level 3.5 3.5-5.1 mmol/L Chloride Level 103 98-107 mmol/L Carbon Dioxide Level 26 20-31 mmol/L Anion Gap 11 5-15 Blood Urea Nitrogen 20 9-23 mg/dL Creatinine 2.44 H 0.700-1.30 mg/dL Glomerular Filtration Rate Calc 26 >90 mL/min BUN/Creatinine Ratio 8.2 L 10.0-20.0 Serum Glucose 107 #H 74-106 mg/dL Calcium Level 8.2 L 8.7-10.4 mg/dL Iron Level 21 L 65-175 ug/dL Total Iron Binding Capacity 169 L 250-425 ug/dL Percent Iron Saturation 12.4 L 20-55 % Schistocytes Moderate Urine Yeast (Budding) Moderate None Seen /hpf Influenza Type A Antigen Negative Negative Influenza Type B Antigen Negative Negative SARS-CoV-2 Antigen (Rapid) Negative NEGATIVE Test 05/30/24 18:21 05/30/24 18:06 Range/Units Stool Occult Blood Negative Negative Stool Occult Blood Sample #3 Negative Prothrombin Time 12.4 H 9.3-11.8 sec Prothrombin Time INR 1.19 H 0.9-1.15 Magnesium Level 1.4 L 1.6-2.6 mg/dL Total Bilirubin 0.6 0.2-1.0 mg/dL Aspartate Amino Transferase (AST) 14 13-40 U/L Alanine Aminotransferase (ALT) 12 7-40 U/L Alkaline Phosphatase 67 46-116 U/L Total Protein 5.7 5.7-8.2 g/dL Albumin 3.4 3.2-4.8 g/dL Microbiology Date/Time Source Procedure Growth Status 05/30/24 18:06 Blood Blood Culture - Preliminary NO GROWTH AFTER 24 HOURS OF INCUBATION. Resulted Assessment Impression: Acute on chronic hypoxic respiratory failure Acute exacerbation of COPD Anemia, rule out GI hemorrhage Hypotension on pressors Urinary tract infection with hematuria Chronic kidney disease, on hemodialysis Elevated troponin Bladder cancer s/p left lung transplant Atrial fibrillation Plan: On 4 liters/minute via nasal cannula Keep O2 saturation above 92%. On amiodarone drip Cardiology recommendations appreciated. On pressors for hemodynamic support On Levophed Monitor renal function Monitor electrolytes. Supplement as necessary Monitor ins and outs Nephrology recommendations appreciated On IV fluids at 100 mL an hour Continue antibiotics Follow up cultures ID recommendations appreciated. Continue steroids Accu-Cheks, insulin sliding scale Monitor hemoglobin Follow up GI recommendations DVT prophylaxis Condition: Critical Prognosis: Poor given multiple comorbidities. Rest of plan per hospitalist and other consultants. A total of 60 minutes of critical care time was spent reviewing the patient record, examining the patient, making a diagnostic and therapeutic plan, discussing this plan with the medical personnel, following up on diagnostic studies and following the patient for clinical stability excluding any and all procedures. At least 50% of this time was spent in direct, [id number] contact. Thank you for allowing me to participate in this patient's care. Further recommendations will depend on patient's clinical course. Please do not hesitate to contact me if you have any questions or concerns. This medical document was created using an electronic medical record system with [employer] dictation system. Although this document has been carefully reviewed, there may still be some phonetic and typographical errors. These areas are purely typographical due to imperfections of the software programs, and do not reflect any compromise in the patient's medical care. Plan discussed with: Other (HOME OFFICE REPRESENTATIVE) LIOR ALVAREZ MD May 31, 2024 18:36
[2024-05-31] MEDS: GABAPENTIN 100 MG CAP PO SCH (21:46)
[2024-05-31] MEDS: ATORVASTATIN 20 MG TAB PO SCH (21:46)
[2024-05-31] MEDS: FINASTERIDE 5 MG TAB PO SCH (21:46)
[2024-05-31] MEDS: METOPROLOL TARTRATE 25 MG TAB PO SCH (22:00)
[2024-05-31 22:08] LABS: Hematocrit 31.7 % (41.0-53.0); Hemoglobin 10.2 g/dL (13.5-17.5)
--- NOTE | 2024-05-31 23:11 | DVHPN2 ---
Progress Note - Dictate Date Seen: May 31, 2024 Medical Necessity Reason Pt with a Central, PICC or Fol: No Subjective Patient seen and examined at bedside. Remains on supplemental oxygen Overnight events reviewed. vital signs Vital Sign Date Time Temp Pulse Resp B/P (MAP) Pulse Ox O2 Delivery O2 Flow Rate FiO2 05/31/24 23:00 98.8 94 19 99/55 (70) 100 98.8 05/31/24 20:03 Nasal Cannula* 4 N/A Non-Rebreather Total Intake and Output 05/30/24 05/30/24 05/31/24 15:00 23:00 07:00 Intake Total 18.75 ml 678.75 ml Balance 18.75 ml 678.75 ml medications Current Medications Medications Dose Ordered Sig/Anish Route Start Time Stop Time Status Last Admin Dose Admin Norepinephrine Bitartrate 250 ml @ 3.75 mls/hr Q24H IV 05/30/24 19:45 05/30/24 20:40 3.75 MLS/HR Nitroglycerin 0.4 mg Q5MINP PRN SL 05/30/24 23:15 Morphine Sulfate 2 mg Q30M PRN IV 05/30/24 23:15 Acetaminophen 650 mg Q6HP PRN PO 05/30/24 23:15 05/31/24 10:38 650 MG Albuterol 2.5 mg Q4HPRN PRN NEB 05/30/24 23:15 Ipratropium [place] 0.5 mg Q4HP PRN NEB 05/30/24 23:15 05/31/24 07:46 0.5 MG Piperacillin Sod/ Tazobactam Sod 100 ml @ 100 mls/hr BID IV 05/31/24 10:00 05/31/24 21:46 100 MLS/HR Diagnostic Test (Pha) 1 strip Q6HR 05/31/24 00:00 05/31/24 17:50 1 STRIP Insulin Human Regular Q6HR SC 05/31/24 00:00 05/31/24 17:50 3 UNITS Dextrose 50 ml UD PRN IV 05/30/24 23:15 Mycophenolate Mofetil 500 mg BID PO 05/31/24 10:00 05/31/24 21:47 500 MG Lorazepam 0.5 mg Q8HP PRN PO 05/31/24 09:30 05/31/24 10:29 0.5 MG Atorvastatin Calcium 20 mg HS PO 05/31/24 22:00 05/31/24 21:46 20 MG Finasteride 5 mg HS PO 05/31/24 22:00 05/31/24 21:46 5 MG Gabapentin 100 mg BID PO 05/31/24 22:00 05/31/24 21:46 100 MG Metoprolol Tartrate 25 mg Q12HR PO 05/31/24 22:00 Tamsulosin HCl 0.8 mg QPM PO 05/31/24 18:00 05/31/24 18:06 0.8 MG Patient Own Medication 0.5 mg Q72HR PO 05/31/24 11:00 Patient Own Medication 4 tab BIDAC PO 05/31/24 17:00 Prednisone 2.5 mg TID PO 05/31/24 14:00 05/31/24 21:47 2.5 MG Sodium Chloride 1,000 ml @ 100 mls/hr Q10H IV 05/31/24 11:45 05/31/24 21:46 100 MLS/HR Pantoprazole Sodium 40 mg DAILY IV 06/01/24 10:00 objective Gen.: Patient lying in bed in no apparent distress. On supplemental oxygen. Head: Normocephalic, atraumatic. Eyes: EOMI/PERRLA. Ears: Normal hearing. Normal anatomy. Neck/trachea: Trachea midline, supple. Nose: Normal external anatomy. Mouth: Moist mucous membranes. Chest: Decreased air entry bilaterally. No wheezing or rhonchi. Cardiovascular: Positive S1, positive S2. Regular rate and rhythm. Abdomen: Positive bowel sounds in all 4 quadrants. Soft, non-tender, non- distended. : Deferred. Rectal: Deferred. Skin: Warm, dry. Intact. Extremities: 2+ radial pulses bilaterally. No lower extremity edema. Neuro: Awake, alert, oriented x3. No gross motor or sensory deficits. Cranial nerves II through XII intact. Gait not assessed. laboratory and microbiology Laboratory Tests 05/31/24 22:00 05/31/24 07:33 Test 05/31/24 07:33 Range/Units Serum Glucose 107 #H 74-106 mg/dL Assessment/Plan Impression: Acute on chronic hypoxic respiratory failure Acute exacerbation of COPD Anemia, rule out GI hemorrhage Hypotension on pressors Urinary tract infection with hematuria Chronic kidney disease, on hemodialysis Elevated troponin Bladder cancer s/p left lung transplant Atrial fibrillation Events: Remains on supplemental O2 On 4 liters/minute via nasal cannula Taper O2 as tolerated S/p 1 unit PRBC Monitor hemoglobin GI recommendations appreciated. Amiodarone drip Off Levophed, hemodynamically stable. Rest of plan as noted below Plan: Supplemental oxygen Keep O2 saturation above 92%. On amiodarone drip Cardiology recommendations appreciated. Pressors if necessary for hemodynamic support Titrate to keep mean arterial pressure greater than 65 mmHg Monitor renal function Monitor electrolytes. Supplement as necessary Monitor ins and outs Nephrology recommendations appreciated On IV fluids at 100 mL an hour Continue antibiotics Follow up cultures ID recommendations appreciated. Continue steroids Accu-Cheks, insulin sliding scale Monitor hemoglobin Follow up GI recommendations DVT prophylaxis Condition: Critical Prognosis: Poor given multiple comorbidities. Rest of plan per hospitalist and other consultants. A total of 35 minutes of critical care time was spent reviewing the patient record, examining the patient, making a diagnostic and therapeutic plan, discussing this plan with the medical personnel, following up on diagnostic studies and following the patient for clinical stability excluding any and all procedures. At least 50% of this time was spent in direct, [id number] contact. Thank you for allowing me to participate in this patient's care. Further recommendations will depend on patient's clinical course. Please do not hesitate to contact me if you have any questions or concerns. This medical document was created using an electronic medical record system with [employer] dictation system. Although this document has been carefully reviewed, there may still be some phonetic and typographical errors. These areas are purely typographical due to imperfections of the software programs, and do not reflect any compromise in the patient's medical care. Plan discussed with: Patient, Other (RN Ty) Critical Care Time(min): 35 LIOR ALVAREZ MD May 31, 2024 23:11
[2024-06-01] VITALS (7 sets, daily range): BP systolic 109–121; BP diastolic 65–72; PULSE 81–96; RESP 17–23; TEMP 97.4–98.1; O2SAT 95–100
[2024-06-01] MEDS: AMIODARONE 360mg/200mL PREMIX 200 ML IV SCH (03:43)
[2024-06-01] MEDS: NOREPINEPHRINE 8 MG/250ML KIT 250 ML IV SCH (03:44)
[2024-06-01] MEDS ORDERED: ACETAMINOPHEN 325 MG TAB PO PRN (03:45)
[2024-06-01] MEDS ORDERED: IPRATROPIUM BROM 0.5 MG/2.5ML INH SOL NEB PRN (03:45)
[2024-06-01] MEDS ORDERED: ALBUTEROL SULF 2.5 MG/0.5ML(0.5%) NEB SOLN NEB PRN (03:45)
[2024-06-01] MEDS ORDERED: DEXTROSE (50%) 50ML SYRG IV PRN (03:45)
[2024-06-01] MEDS ORDERED: NITROGLYCERIN 0.4 MG SL TAB SL PRN (03:45)
[2024-06-01] MEDS ORDERED: MORPHINE SULFATE INJ 2 MG/ml SYRG IV PRN (03:45)
[2024-06-01] MEDS: SODIUM CHLORIDE 0.9% 1,000 ML IV SCH (03:52)
[2024-06-01] MEDS ORDERED: [UNRECOGNIZED DRUG - OTHER] PO SCH (04:00)
[2024-06-01] MEDS: ACCU-CHEK COMFORT CURVE STRIP VI SCH (06:12)
[2024-06-01] MEDS: LORazepam 0.5 MG TAB PO PRN (06:17)
[2024-06-01] MEDS: predniSONE 5 MG TAB PO SCH (06:18)
[2024-06-01] MEDS: InsuLIN REG 1unit/0.01ml Soln (100units/ml) SC SCH (06:19)
--- NOTE | 2024-06-01 09:34 | DVHINCON2 ---
Date Seen: Jun 01, 2024 Referring [facility] Reason for Consultation Rapid atrial fibrillation History of Present Illness 78-year-old gentleman well known to the institution with a noted history of atrial fibrillation and multiple medical problems associated history of hyperte nsion and chronic obstructive lung disease had dark tarry stools. He has a history of a lung transplantation in the past. Noted history of bladder mass. Cardiac evaluation was requested given his rapid AFib. Denies any chest pain. He was on chronic anticoagulation as an outpatient for atrial fibrillation. His past medical history is also significant for cancer and renal insufficiency as mentioned. Past Medical History History of chronic obstructive lung disease hypertension atrial fibrillation chronic kidney disease. Cancer. Bladder mass. GI bleeding. Diabetes mellitus. Past Surgical History Dialysis catheter placement. Family History: Cerebrovascular accident (CVA) G8 FATHER Diabetes mellitus G8 MOTHER FHx: cancer G8 MOTHER Allergies: Coded Allergies: No Known Drug Allergy (Verified Allergy, Unknown, 08/25/15) Home Meds Active Scripts Amoxicillin & Pot Clavulanate (AUGMENTIN TABLET) 875 Mg Tb, 875 MG PO BID for 10 Days, #20 TAB Prov:SANDY HEWITT MD 03/14/24 Apixaban Base (ELIQUIS) 2.5 Mg Tab, 2.5 MG PO BID for 30 Days, #60 TAB Prov:SANDY HEWITT MD 03/14/24 Hydrocodone-Acetaminophen (Hydrocodone Bitartrate/AC 5-325 mg) 1 Tab Tab, 1 TAB PO Q8HPRN PRN, #14 TAB Prov:HERRERA ENRIQUEZ MD 03/09/24 Calcium Citrate-Vitamin D (Calcitrate Plus D 315-200 mg-Unit) 1 Tab Tab, 1 TAB PO BID, #90 TAB Prov:HERRERA ENRIQUEZ MD 03/09/24 Cyclobenzaprine Hcl (Cyclobenzaprine Hcl) 5 Mg Tab, 1 TAB PO TID, #30 TAB Prov:HERRERA ENRIQUEZ MD 03/09/24 Reported Medications Hydrochlorothiazide (Hydrochlorothiazide) 12.5 Mg Cap, 12.5 MG PO DAILY, CAP 03/13/24 Losartan Potassium (Losartan Potassium) 50 Mg Tab, 50 MG PO DAILY, MG 03/13/24 Amlodipine Besylate (Amlodipine Besylate) 10 Mg Tab, 10 MG PO DAILY, TAB 03/13/24 Metoprolol Tartrate (Lopressor) 25 Mg Tb, 25 MG PO Q12HR, TAB 03/13/24 Nateglinide (Nateglinide) 120 Mg Tab, 120 MG PO TIDWM, TAB 03/13/24 Insulin Lispro (Humalog Kwikpen) 100 Unit/Ml Inj, 5 UNIT SC AC, INJ 03/13/24 Everolimus (Everolimus) 0.5 Mg Tab, 4 TAB PO BIDAC, TAB 03/13/24 Prednisone (Prednisone) 2.5 Mg Tab, 2.5 MG PO TID, TAB 03/13/24 Mycophenolate Mofetil (Mycophenolate Mofetil) 250 Mg Cap, 500 MG PO BID, CAP 03/13/24 Tamsulosin Hcl (Tamsulosin Hcl) 0.4 Mg Cap, 0.8 MG PO QPM for 30 Days, MG 12/31/16 Pantoprazole Sodium (PANTOPRAZOLE SODIUM) 40 Mg Inj, 40 MG PO DAILY, INJ 12/31/16 Multiple Vitamin (Multivitamins) Cap, 1 CAP PO DAILY, #30 CAP 3 Refills 12/31/16 Insulin Detemir (Levemir Flextouch) 100 Unit/Ml Inj, 20 UNIT SC HS, INJ 12/31/16 Gabapentin (Gabapentin) 100 Mg Cap, 100 MG PO BID 12/31/16 Finasteride (Finasteride) 5 Mg Tab, 5 MG PO HS for 30 Days, MG 12/31/16 Entecavir Monohydrate (Entecavir) 0.5 Mg Tab, 0.5 MG PO Q72HR, TAB 12/31/16 Atorvastatin Calcium (ATORVASTATIN CALCIUM) 20 Mg Tab, 20 MG PO HS, TAB 12/31/16 Current Medications Current Medications Medications (Trade) Dose Ordered Sig/Anish Route PRN Reason Start Time Stop Time Status Last Admin Piperacillin Sod/ Tazobactam Sod 100 ml @ 100 mls/hr BID IV 05/31/24 10:00 06/01/24 03:43 DC 05/31/24 21:46 Mycophenolate Mofetil (Cellcept) 500 mg BID PO 05/31/24 10:00 06/01/24 03:45 DC 05/31/24 21:47 Lorazepam (Ativan Tablet) 0.5 mg Q8HP PRN PO ANXIETY 05/31/24 09:30 06/01/24 03:45 DC 05/31/24 10:29 Atorvastatin Calcium (Lipitor) 20 mg HS PO 05/31/24 22:00 06/01/24 03:46 DC 05/31/24 21:46 Finasteride (Proscar Tablet) 5 mg HS PO 05/31/24 22:00 06/01/24 03:46 DC 05/31/24 21:46 Gabapentin (Neurontin Capsule) 100 mg BID PO 05/31/24 22:00 06/01/24 03:46 DC 05/31/24 21:46 Metoprolol Tartrate (Lopressor Tablet) 25 mg Q12HR PO 05/31/24 22:00 06/01/24 03:46 DC Tamsulosin HCl (Flomax) 0.8 mg QPM PO 05/31/24 18:00 06/01/24 03:47 DC 05/31/24 18:06 Patient Own Medication 0.5 mg Q72HR PO 05/31/24 11:00 06/01/24 03:47 DC Patient Own Medication 4 tab BIDAC PO 05/31/24 17:00 06/01/24 03:47 DC Prednisone 2.5 mg TID PO 05/31/24 14:00 06/01/24 03:47 DC 05/31/24 21:47 Sodium Chloride 1,000 ml @ 100 mls/hr Q10H IV 05/31/24 11:45 06/01/24 03:47 DC 05/31/24 21:46 Pantoprazole Sodium (Protonix) 40 mg DAILY IV 06/01/24 10:00 06/01/24 03:47 DC Norepinephrine Bitartrate 250 ml @ 3.75 mls/hr Q24H IV 06/01/24 03:45 Nitroglycerin (Ntrostat Sublingual) 0.4 mg Q5MINP PRN SL FOR CHEST PAIN 06/01/24 03:45 Morphine Sulfate 2 mg Q30M PRN IV FOR CHEST PAIN 06/01/24 03:45 Acetaminophen (Tylenol Tablet) 650 mg Q6HP PRN PO fever, mild pain 06/01/24 03:45 Albuterol (Ventolin Medneb) 2.5 mg Q4HPRN PRN NEB SHORTNESS OF BREATH 06/01/24 03:45 Ipratropium [place] (Atrovent Medneb) 0.5 mg Q4HP PRN NEB SHORTNESS OF BREATH 06/01/24 03:45 Piperacillin Sod/ Tazobactam Sod 100 ml @ 100 mls/hr BID IV 06/01/24 10:00 Diagnostic Test (Pha) (Accu-Chek Comfort Curve T) 1 strip Q6HR 06/01/24 06:00 06/01/24 06:12 Insulin Human Regular (InsuLIN R) Q6HR SC 06/01/24 06:00 06/01/24 06:19 Dextrose 50 ml UD PRN IV Blood Sugar LESS THAN 60 06/01/24 03:45 Mycophenolate Mofetil (Cellcept) 500 mg BID PO 06/01/24 10:00 Lorazepam (Ativan Tablet) 0.5 mg Q8HP PRN PO ANXIETY 06/01/24 04:00 06/01/24 06:17 Atorvastatin Calcium (Lipitor) 20 mg HS PO 06/01/24 22:00 Finasteride (Proscar Tablet) 5 mg HS PO 06/01/24 22:00 Gabapentin (Neurontin Capsule) 100 mg BID PO 06/01/24 10:00 Metoprolol Tartrate (Lopressor Tablet) 25 mg Q12HR PO 06/01/24 10:00 Tamsulosin HCl (Flomax) 0.8 mg QPM PO 06/01/24 18:00 Patient Own Medication 0.5 mg Q72HR PO 06/01/24 04:00 Patient Own Medication 4 tab BIDAC PO 06/01/24 07:00 Prednisone 2.5 mg TID PO 06/01/24 06:00 06/01/24 06:18 Sodium Chloride 1,000 ml @ 100 mls/hr Q10H IV 06/01/24 04:00 06/01/24 06:55 Pantoprazole Sodium (Protonix) 40 mg DAILY IV 06/01/24 10:00 Review of Systems No constitutional symptoms with the exception progressive fatigue. Probable weight loss noted. Cardiac and respiratory as noted above. Associated history of atrial fibrillation coronary artery disease. GI and as noted above with a history of GI bleeding and bladder mass history of hematuria. Hematologically an oncologic as noted above. Endocrine as noted above with a history of diabetes mellitus. Hematologically negative. Vital Signs Vital Signs Date Time Temp Pulse Resp B/P (MAP) Pulse Ox O2 Delivery O2 Flow Rate FiO2 06/01/24 08:45 85 15 127/55 (79) 100 06/01/24 08:22 Nasal Cannula* 4 36 06/01/24 07:15 97.9 97.9 Physical Exam He is awake alert and oriented. No acute distress. HEENT examination is otherwise unremarkable oral well hydrated. No jugular distention no bruits. Lungs reveal good air entry. Heart exam reveals an irregular S1-S2. 1/6 systolic ejection murmur noted. No gallops discernible. Abdominal examination is unremarkable. Extremities reveal adequate perfusion without clubbing or cyanosis no edema. Neurologically intact. Integumentary is otherwise within normal limits. Labs/Diagnostic Data Labs Test 06/01/24 07:40 06/01/24 06:44 05/31/24 22:00 05/31/24 11:35 Range/Units POC Glucose 143 H 70-106 mg/dl Stool Occult Blood Negative Negative Stool Occult Blood Sample #3 Negative Hemoglobin 10.2 #L 13.5-17.5 g/dL Hematocrit 31.7 #L 41.0-53.0 % Lactic Acid Level 0.8 0.4-2.0 mmol/L Urine Color Light-yellow Yellow Urine Clarity Turbid H Clear Urine pH 6.0 5.0-9.0 Urine Specific [place] 1.013 1.001-1.035 Urine Protein 2+ H Negative Urine Ketones Trace Negative Urine Blood 3+ H Negative /uL Urine Nitrite Negative Negative Urine Bilirubin Negative Negative Urine Urobilinogen Normal Negative mg/dL Urine Leukocyte Esterase 3+ Negative /uL Urine RBC 35 0 - 3 /hpf Urine WBC Clumps Present None Seen /hpf Urine Microscopic WBC 493 H 0-3 /HPF Urine Squamous Epithelial Cells None seen <5 /hpf Urine Bacteria Few H None Seen /hpf Urine Glucose Normal Normal mg/dL Test 05/31/24 09:45 05/31/24 07:33 05/30/24 21:37 05/30/24 21:15 Range/Units Troponin I High Sensitivity 43 </=54 ng/L White Blood Count 9.2 4.4-10.8 10^3/uL Red Blood Count 3.82 L 4.5-5.90 10^6/uL Mean Corpuscular Volume 70.6 L 80.0-100.0 fL Mean Corpuscular Hemoglobin 21.5 L 28.0-32.0 pg Mean Corpuscular Hemoglobin Concent 30.4 L 32.0-36.0 g/dL Red Cell Distribution Width 26.6 H 11.8-14.3 % Platelet Count 150 140-450 10^3/uL Mean Platelet Volume 8.8 6.9-10.8 fL Neutrophils (%) (Auto) 61.2 37.0-80.0 % Lymphocytes (%) (Auto) 26.7 10.0-50.0 % Monocytes (%) (Auto) 10.9 0.0-12.0 % Eosinophils (%) (Auto) 0.8 0.0-7.0 % Basophils (%) (Auto) 0.4 0.0-2.0 % Neutrophils # (Auto) 5.6 1.6-8.6 10 ^3/uL Lymphocytes # (Auto) 2.5 0.4-5.4 10 ^3/uL Monocytes # (Auto) 1.0 0-1.3 10 ^3/uL Eosinophils # (Auto) 0.1 0-0.8 10 ^3/uL Basophils # (Auto) 0 0-0.2 10 ^3/uL Nucleated Red Blood Cells 0.2 % Platelet Estimate [place] Large Platelets Few Giant Platelets Few Hypochromasia (manual) Moderate Anisocytosis (manual) Moderate Microcytosis Moderate Target Cells Few Ovalocytes Few Dona Cells Few D-Dimer, Quantitative 6.75 H 0.0-0.49 mg/L FEU Sodium Level 140 136-145 mmol/L Potassium Level 3.5 3.5-5.1 mmol/L Chloride Level 103 98-107 mmol/L Carbon Dioxide Level 26 20-31 mmol/L Anion Gap 11 5-15 Blood Urea Nitrogen 20 9-23 mg/dL Creatinine 2.44 H 0.700-1.30 mg/dL Glomerular Filtration Rate Calc 26 >90 mL/min BUN/Creatinine Ratio 8.2 L 10.0-20.0 Serum Glucose 107 #H 74-106 mg/dL Calcium Level 8.2 L 8.7-10.4 mg/dL Iron Level 21 L 65-175 ug/dL Total Iron Binding Capacity 169 L 250-425 ug/dL Percent Iron Saturation 12.4 L 20-55 % Schistocytes Moderate Urine Yeast (Budding) Moderate None Seen /hpf Test 05/30/24 20:45 05/30/24 18:06 Range/Units Influenza Type A Antigen Negative Negative Influenza Type B Antigen Negative Negative SARS-CoV-2 Antigen (Rapid) Negative NEGATIVE Prothrombin Time 12.4 H 9.3-11.8 sec Prothrombin Time INR 1.19 H 0.9-1.15 Magnesium Level 1.4 L 1.6-2.6 mg/dL Total Bilirubin 0.6 0.2-1.0 mg/dL Aspartate Amino Transferase (AST) 14 13-40 U/L Alanine Aminotransferase (ALT) 12 7-40 U/L Alkaline Phosphatase 67 46-116 U/L Total Protein 5.7 5.7-8.2 g/dL Albumin 3.4 3.2-4.8 g/dL Microbiology Date/Time Source Procedure Growth Status 05/31/24 11:35 Voided Urine Urine Culture - Preliminary Resulted 05/30/24 18:06 Blood Blood Culture - Preliminary Resulted Assessment Hypertension. Diabetes. Chronic kidney disease on dialysis. Atrial fibrillation. Controlled ventricular response at this time. GI bleeding. Bladder mass. Plan/Recommendation Given his multiple medical problems we will consider monitoring patient at this time. Recent echocardiogram shows decent left ventricular function. No evidenc e of chest pain or ischemia noted. Agree with need for possible endoscopy to evaluate GI bleeding. Continue with amiodarone and switch over to p.o. amiodarone once patient is cleared from a GI perspective. Plan discussed with: Patient NYHA Physical activity limitations: Class3(Marked) ordinary Date of Service: Jun 01, 2024 Billing Provider: KIRK BINGHAM Sr., MD Cardiology Common Codes: 04546-VUHNTMH INP/OBS CARE (High) KIRK BINGHAM Sr., MD Jun 01, 2024 09:34
--- NOTE | 2024-06-01 09:39 | ECG ---
[facility] Test Date: 2024-05-30 Test Time: 17:33:26 Pat Name: GIANNI SCHWARTZ Department: ER Room: 0282T Gender: M Help Desk Supervisor: ARIANE : 1945 Requested By: SHIV KELLY Order Number: [id number] Reading MD: Nino Castañeda Measurements Intervals [place] Rate: 119 P: 77 TN: 142 QRS: 125 QRSD: 90 T: 53 QT: 329 QTc: 463 Interpretive Statements Sinus tachycardia Multiple premature complexes, vent & supraven Right axis deviation Electronically Signed On 06-03-2024 8:49:17 PST by Nino Castañeda Please click the below link to view image of tracing.
[2024-06-01] MEDS: GABAPENTIN 100 MG CAP PO SCH (10:00)
[2024-06-01] MEDS: PANTOPRAZOLE 40 MG/10 ML VIAL INJ IV SCH ×2 (10:00→22:23)
[2024-06-01] MEDS ORDERED: PANTOPRAZOLE 40 MG/10 ML VIAL INJ IV SCH (10:00)
[2024-06-01] MEDS: METOPROLOL TARTRATE 25 MG TAB PO SCH (10:01)
[2024-06-01] MEDS: PIPERACILLIN-TAZOB 3.375GM 100 ML IV SCH (10:01)
[2024-06-01] MEDS: MYCOPHENOLATE 500 MG TAB PO SCH (10:09)
[2024-06-01 13:19] LABS: Chloride 104 mmol/L (98-107); Sodium 141 mmol/L (136-145)
[2024-06-01 13:20] LABS: Anion Gap 8 (5-15); Carbon Dioxide 29 mmol/L (20-31)
[2024-06-01 13:25] LABS: Blood Urea Nitrogen 24 mg/dL (9-23); Glucose 102 mg/dL (74-106); Potassium 3.4 mmol/L (3.5-5.1)
[2024-06-01 15:06] LABS: Basophils # (auto) 0.1 10 ^3/uL (0-0.2); Eosinophils # (auto) 0 10 ^3/uL (0-0.8); Hemoglobin 10.7 g/dL (13.5-17.5); Mean Corpuscular Hemoglobin 23.9 pg (28.0-32.0); Nucleated Red Blood Cells % 0.3 %
[2024-06-01 15:07] LABS: Basophils % (auto) 0.9 % (0.0-2.0); Eosinophils % (auto) 0.5 % (0.0-7.0); Hematocrit 32.9 % (41.0-53.0); Lymphocytes % (auto) 14.7 % (10.0-50.0); Mean Corpuscular Hgb Conc. 32.6 g/dL (32.0-36.0); Mean Corpuscular Volume 73.5 fL (80.0-100.0); Monocytes # (auto) 0.3 10 ^3/uL (0-1.3); Monocytes % (auto) 4.6 % (0.0-12.0); Neutrophils # (auto) 5.3 10 ^3/uL (1.6-8.6); Neutrophils % (auto) 79.3 % (37.0-80.0); Platelet Count (auto) 125 10^3/uL (140-450); Red Blood Cells 4.48 10^6/uL (4.5-5.90); White Blood Cell 6.7 10^3/uL (4.4-10.8)
[2024-06-01 15:19] LABS: Red Cell Distribution Width 26.9 % (11.8-14.3)
[2024-06-01 15:37] LABS: Alanine Aminotransferase 21 U/L (7-40); Albumin 3.5 g/dL (3.2-4.8); Alkaline Phosphatase 67 U/L (46-116); Anion Gap 7 (5-15); Aspartate Aminotransferase 39 U/L (13-40); BUN/Creatinine Ratio 9.2 (10.0-20.0); Blood Urea Nitrogen 22 mg/dL (9-23); Carbon Dioxide 29 mmol/L (20-31); Chloride 105 mmol/L (98-107); Glucose 102 mg/dL (74-106); Sodium 141 mmol/L (136-145)
[2024-06-01 15:38] LABS: Bilirubin, Total 0.4 mg/dL (0.2-1.0); Total Protein 5.9 g/dL (5.7-8.2)
[2024-06-01 15:43] LABS: Magnesium 1.5 mg/dL (1.6-2.6); Potassium 3.3 mmol/L (3.5-5.1)
[2024-06-01 16:13] LABS: Platelet Estimate Decreased
[2024-06-01 16:14] LABS: Anisocytosis Moderate
[2024-06-01 16:15] LABS: Hypochromia Moderate
--- NOTE | 2024-06-01 16:35 | DVHPN2 ---
Progress Note Date Seen: Jun 01, 2024 Resident Creating Document: NEELAM GRAHAM RESIDENT Medical Necessity Reason Pt with a Central, PICC or Fol: Yes The following are medically ne: Negrete Catheter Subjective Review of Systems This is a 78-year-old male patient with PMHx COPD, hypertension, atrial fibrillation on Eliquis, acute on chronic kidney disease, history of lung transplantation, diabetes, bladder mass presented to the ER with a chief complaint of dark black stool. Patient reports black tarry stool for the past 2 weeks, but denies abdominal pain, hematemesis, hemoptysis. He is taking Eliquis starting August 2023 for atrial fibrillation. Patient seen and examined at bedside. Reports no active complaint. Rectal exam completed, rectal tone is intact, no hemorrhoids felt, tarry black stool noticed on fingertip. Hemoglobin is 10 after receiving 2 units of packed RBCs. Objective vital signs Vital Sign Date Time Temp Pulse Resp B/P (MAP) Pulse Ox O2 Delivery O2 Flow Rate FiO2 06/01/24 13:30 80 14 128/59 (82) 98 06/01/24 12:45 98.1 98.1 06/01/24 08:22 Nasal Cannula* 4 36 Total Intake and Output 05/31/24 05/31/24 06/01/24 15:00 23:00 07:00 Intake Total 665.40 ml 2227.87 ml 1033.28 ml Output Total 1350 ml 1150 ml Balance 665.40 ml 877.87 ml -116.72 ml medications Current Medications Medications Dose Ordered Sig/Anish Route Start Time Stop Time Status Last Admin Dose Admin Norepinephrine Bitartrate 250 ml @ 3.75 mls/hr Q24H IV 06/01/24 03:45 Nitroglycerin 0.4 mg Q5MINP PRN SL 06/01/24 03:45 Morphine Sulfate 2 mg Q30M PRN IV 06/01/24 03:45 Acetaminophen 650 mg Q6HP PRN PO 06/01/24 03:45 Albuterol 2.5 mg Q4HPRN PRN NEB 06/01/24 03:45 Ipratropium [place] 0.5 mg Q4HP PRN NEB 06/01/24 03:45 Piperacillin Sod/ Tazobactam Sod 100 ml @ 100 mls/hr BID IV 06/01/24 10:00 06/01/24 10:01 100 MLS/HR Diagnostic Test (Pha) 1 strip Q6HR 06/01/24 06:00 06/01/24 11:56 1 STRIP Insulin Human Regular Q6HR SC 06/01/24 06:00 06/01/24 06:19 2 UNITS Dextrose 50 ml UD PRN IV 06/01/24 03:45 Mycophenolate Mofetil 500 mg BID PO 06/01/24 10:00 06/01/24 10:09 500 MG Lorazepam 0.5 mg Q8HP PRN PO 06/01/24 04:00 06/01/24 06:17 0.5 MG Atorvastatin Calcium 20 mg HS PO 06/01/24 22:00 Finasteride 5 mg HS PO 06/01/24 22:00 Gabapentin 100 mg BID PO 06/01/24 10:00 06/01/24 10:00 100 MG Metoprolol Tartrate 25 mg Q12HR PO 06/01/24 10:00 06/01/24 10:01 25 MG Tamsulosin HCl 0.8 mg QPM PO 06/01/24 18:00 Patient Own Medication 0.5 mg Q72HR PO 06/01/24 04:00 Prednisone 2.5 mg TID PO 06/01/24 06:00 06/01/24 14:15 2.5 MG Sodium Chloride 1,000 ml @ 100 mls/hr Q10H IV 06/01/24 04:00 06/01/24 06:55 100 MLS/HR Patient Own Medication 3 tab QAM@1000 PO 06/02/24 10:00 Patient Own Medication 2 tab HS PO 06/01/24 22:00 Pantoprazole Sodium 40 mg BID IV 06/01/24 22:00 Examination Patient lying in bed, in no acute distress General: Well-built, afebrile, palor, mucosae are moist Cardiovascular: Regular S1 and S2. No murmurs, gallops or rubs. No JVD elevation. No pedal edema Respiratory: Normal B/L air entry on room air. Clear lung sounds on auscultation Abdomen: Soft, nontender, nondistended, normoactive bowel sounds, no rebound tenderness, no organomegaly, no masses. Rectal exam completed, rectal tone is intact, no hemorrhoids felt, tarry black stool noticed on fingertip. Genitourinary: Deferred MSK/skin: Mobilizes 4 limbs. Skin is dry and warm Neurological: No motor, no sensitive deficits, normal speech. Pupils are isocoric and reactive. Psych/Mental Status: A/Ox4 laboratory and microbiology Laboratory Tests 06/01/24 12:54 Test 06/01/24 12:54 Range/Units Serum Glucose 102 74-106 mg/dL Microbiology Date/Time Source Procedure Growth Status 05/31/24 11:56 Blood Blood Culture - Preliminary NO GROWTH AFTER 24 HOURS OF INCUBATION. 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 Maintain hemoglobin greater than 7 and transfuse as necessary Monitor H&H daily Follow up with ultrasound liver Avoid anticoagulation/NSAIDs/aspirin Continue antibiotics Continue Clear Liq diet Case discussed with Dr. Burns Plan discussed with: Patient, Other (Nurse gilbert) My Orders My Orders Orders - NEELAM GRAHAM Procedure Category Date Status Time Pantoprazole PHA 06/01/24 In Process (Protonix) 22:00 NEELAM GRAHAM Jun 01, 2024 16:35
--- NOTE | 2024-06-01 16:41 | DVHPN2 ---
Progress Note Date Seen: Jun 01, 2024 Medical Necessity Reason Pt with a Central, PICC or Fol: No Objective vital signs Vital Sign Date Time Temp Pulse Resp B/P (MAP) Pulse Ox O2 Delivery O2 Flow Rate FiO2 06/01/24 13:30 80 14 128/59 (82) 98 06/01/24 12:45 98.1 98.1 06/01/24 08:22 Nasal Cannula* 4 36 Total Intake and Output 05/31/24 05/31/24 06/01/24 15:00 23:00 07:00 Intake Total 665.40 ml 2227.87 ml 1033.28 ml Output Total 1350 ml 1150 ml Balance 665.40 ml 877.87 ml -116.72 ml medications Current Medications Medications Dose Ordered Sig/Anish Route Start Time Stop Time Status Last Admin Dose Admin Norepinephrine Bitartrate 250 ml @ 3.75 mls/hr Q24H IV 06/01/24 03:45 Nitroglycerin 0.4 mg Q5MINP PRN SL 06/01/24 03:45 Morphine Sulfate 2 mg Q30M PRN IV 06/01/24 03:45 Acetaminophen 650 mg Q6HP PRN PO 06/01/24 03:45 Albuterol 2.5 mg Q4HPRN PRN NEB 06/01/24 03:45 Ipratropium [place] 0.5 mg Q4HP PRN NEB 06/01/24 03:45 Piperacillin Sod/ Tazobactam Sod 100 ml @ 100 mls/hr BID IV 06/01/24 10:00 06/01/24 10:01 100 MLS/HR Diagnostic Test (Pha) 1 strip Q6HR 06/01/24 06:00 06/01/24 11:56 1 STRIP Insulin Human Regular Q6HR SC 06/01/24 06:00 06/01/24 06:19 2 UNITS Dextrose 50 ml UD PRN IV 06/01/24 03:45 Mycophenolate Mofetil 500 mg BID PO 06/01/24 10:00 06/01/24 10:09 500 MG Lorazepam 0.5 mg Q8HP PRN PO 06/01/24 04:00 06/01/24 06:17 0.5 MG Atorvastatin Calcium 20 mg HS PO 06/01/24 22:00 Finasteride 5 mg HS PO 06/01/24 22:00 Gabapentin 100 mg BID PO 06/01/24 10:00 06/01/24 10:00 100 MG Metoprolol Tartrate 25 mg Q12HR PO 06/01/24 10:00 06/01/24 10:01 25 MG Tamsulosin HCl 0.8 mg QPM PO 06/01/24 18:00 Patient Own Medication 0.5 mg Q72HR PO 06/01/24 04:00 Prednisone 2.5 mg TID PO 06/01/24 06:00 06/01/24 14:15 2.5 MG Sodium Chloride 1,000 ml @ 100 mls/hr Q10H IV 06/01/24 04:00 06/01/24 06:55 100 MLS/HR Patient Own Medication 3 tab QAM@1000 PO 06/02/24 10:00 Patient Own Medication 2 tab HS PO 06/01/24 22:00 Pantoprazole Sodium 40 mg BID IV 06/01/24 22:00 Examination: LUNGS:Abnormal, CVS:Abnormal laboratory and microbiology Laboratory Tests 06/01/24 12:54 Test 06/01/24 12:54 Range/Units Serum Glucose 102 74-106 mg/dL Microbiology Date/Time Source Procedure Growth Status 05/31/24 11:56 Blood Blood Culture - Preliminary NO GROWTH AFTER 24 HOURS OF INCUBATION. Resulted 05/31/24 11:35 Voided Urine Urine Culture - Preliminary Resulted Problem List/Assessment/Plan Problem List/Assessment/Plan Acute kidney injury superimposed Chronic Kidney Disease secondary hemodynamic mediated Acute on chronic respiratory failure Congestive heart failure exacerbation AFib with RVR Diabetes mellitus type 2 Iron deficiency anemia hypokalemia lung transplant on everlimus Closely monitor fluid and electrolytes potassium replacement Avoid nephrotoxic medications Strict I&Os I agree with diuresis Iron replacement GI consult continue transplant meds per home regime Plan discussed with: Patient My Orders My Orders Orders - ALEISHA SHAVER MD Procedure Category Date Status Time Basic Metabolic Panel LAB 06/02/24 Verified 04:00 ALEISHA SHAVER MD Jun 01, 2024 16:41
[2024-06-01] MEDS: POTASSIUM EFFERVESENT TAB 25 MEQ PO ONE (16:56)
--- NOTE | 2024-06-01 17:45 | DVHPN2 ---
Progress Note - Dictate Date Seen: Jun 01, 2024 Medical Necessity Reason Pt with a Central, PICC or Fol: Yes The following are medically ne: Negrete Catheter Subjective Clinically feels better. Heart rate is improved rate controlled AFib on low- dose amiodarone drip. Evaluated by GI to consider EGD. Hemoglobin is stable. Continued to resume Protonix. Waiting for Nephrology for dialysis. vital signs Vital Sign Date Time Temp Pulse Resp B/P (MAP) Pulse Ox O2 Delivery O2 Flow Rate FiO2 06/01/24 16:30 83 17 114/63 (80) 99 06/01/24 12:45 98.1 98.1 06/01/24 08:22 Nasal Cannula* 4 36 Total Intake and Output 05/31/24 05/31/24 06/01/24 15:00 23:00 07:00 Intake Total 665.40 ml 2227.87 ml 1033.28 ml Output Total 1350 ml 1150 ml Balance 665.40 ml 877.87 ml -116.72 ml medications Current Medications Medications Dose Ordered Sig/Anish Route Start Time Stop Time Status Last Admin Dose Admin Norepinephrine Bitartrate 250 ml @ 3.75 mls/hr Q24H IV 06/01/24 03:45 Nitroglycerin 0.4 mg Q5MINP PRN SL 06/01/24 03:45 Morphine Sulfate 2 mg Q30M PRN IV 06/01/24 03:45 Acetaminophen 650 mg Q6HP PRN PO 06/01/24 03:45 Albuterol 2.5 mg Q4HPRN PRN NEB 06/01/24 03:45 Ipratropium [place] 0.5 mg Q4HP PRN NEB 06/01/24 03:45 Piperacillin Sod/ Tazobactam Sod 100 ml @ 100 mls/hr BID IV 06/01/24 10:00 06/01/24 10:01 100 MLS/HR Diagnostic Test (Pha) 1 strip Q6HR 06/01/24 06:00 06/01/24 11:56 1 STRIP Insulin Human Regular Q6HR SC 06/01/24 06:00 06/01/24 06:19 2 UNITS Dextrose 50 ml UD PRN IV 06/01/24 03:45 Mycophenolate Mofetil 500 mg BID PO 06/01/24 10:00 06/01/24 10:09 500 MG Lorazepam 0.5 mg Q8HP PRN PO 06/01/24 04:00 06/01/24 06:17 0.5 MG Atorvastatin Calcium 20 mg HS PO 06/01/24 22:00 Finasteride 5 mg HS PO 06/01/24 22:00 Gabapentin 100 mg BID PO 06/01/24 10:00 06/01/24 10:00 100 MG Metoprolol Tartrate 25 mg Q12HR PO 06/01/24 10:00 06/01/24 10:01 25 MG Tamsulosin HCl 0.8 mg QPM PO 06/01/24 18:00 Patient Own Medication 0.5 mg Q72HR PO 06/01/24 04:00 Prednisone 2.5 mg TID PO 06/01/24 06:00 06/01/24 14:15 2.5 MG Sodium Chloride 1,000 ml @ 100 mls/hr Q10H IV 06/01/24 04:00 06/01/24 06:55 100 MLS/HR Patient Own Medication 3 tab QAM@1000 PO 06/02/24 10:00 Patient Own Medication 2 tab HS PO 06/01/24 22:00 Pantoprazole Sodium 40 mg BID IV 06/01/24 22:00 objective Alert awake oriented x3. HEENT neck supple no JVD. Heart irregular rate and rhythm S1 plus S2. Lungs fair air movement without wheezing. Abdomen soft nontender positive bowel sounds. Extremities no edema. No active GI bleeding noted. laboratory and microbiology Laboratory Tests 06/01/24 12:54 Test 06/01/24 12:54 Range/Units Serum Glucose 102 74-106 mg/dL Assessment/Plan Patient heart rate is controlled. Continue current IV amiodarone drip. Patient is on his baseline home oxygen here. Hemoglobin is stable. Continue Protonix. Proceed with the EGD if needed per GI recommendations. Otherwise we will downgrade him to telemetry floor today. Clear liquid diet. Resume in/continue rest of his home medications. Hemodialysis Saturday as he has scheduled outpatient basis while he is in the hospital. Otherwise further clinical management per clinical course and recommendations the consultants. Discussed with the patient as well as the nurse at bedside regarding care plan. Problems(with codes): (1) [id number] kidney injury (2) Atrial fibrillation with RVR (3) Diabetes mellitus (4) Weakness (5) Upper GI bleeding (6) End stage renal failure on dialysis (7) Respiratory failure with hypoxia Plan discussed with: Patient, Other HERRERA ENRIQUEZ MD Jun 01, 2024 17:45
--- NOTE | 2024-06-01 18:20 | DVHPN2 ---
Progress Note - Dictate Date Seen: Jun 01, 2024 Medical Necessity Reason Pt with a Central, PICC or Fol: Yes The following are medically ne: Negrete Catheter Subjective Patient reports that he has been clinically feeling better. On low-dose amiodarone drip. Waiting for Nephrology for dialysis. Hemoglobin is 10 after receiving 2 units of packed RBCs. vital signs Vital Sign Date Time Temp Pulse Resp B/P (MAP) Pulse Ox O2 Delivery O2 Flow Rate FiO2 06/01/24 17:42 89 17 140/65 (90) 99 06/01/24 12:45 98.1 98.1 06/01/24 08:22 Nasal Cannula* 4 36 Total Intake and Output 05/31/24 05/31/24 06/01/24 15:00 23:00 07:00 Intake Total 665.40 ml 2227.87 ml 1033.28 ml Output Total 1350 ml 1150 ml Balance 665.40 ml 877.87 ml -116.72 ml medications Current Medications Medications Dose Ordered Sig/Anish Route Start Time Stop Time Status Last Admin Dose Admin Norepinephrine Bitartrate 250 ml @ 3.75 mls/hr Q24H IV 06/01/24 03:45 Nitroglycerin 0.4 mg Q5MINP PRN SL 06/01/24 03:45 Morphine Sulfate 2 mg Q30M PRN IV 06/01/24 03:45 Acetaminophen 650 mg Q6HP PRN PO 06/01/24 03:45 Albuterol 2.5 mg Q4HPRN PRN NEB 06/01/24 03:45 Ipratropium [place] 0.5 mg Q4HP PRN NEB 06/01/24 03:45 Piperacillin Sod/ Tazobactam Sod 100 ml @ 100 mls/hr BID IV 06/01/24 10:00 06/01/24 10:01 100 MLS/HR Diagnostic Test (Pha) 1 strip Q6HR 06/01/24 06:00 06/01/24 11:56 1 STRIP Insulin Human Regular Q6HR SC 06/01/24 06:00 06/01/24 06:19 2 UNITS Dextrose 50 ml UD PRN IV 06/01/24 03:45 Mycophenolate Mofetil 500 mg BID PO 06/01/24 10:00 06/01/24 10:09 500 MG Lorazepam 0.5 mg Q8HP PRN PO 06/01/24 04:00 06/01/24 06:17 0.5 MG Atorvastatin Calcium 20 mg HS PO 06/01/24 22:00 Finasteride 5 mg HS PO 06/01/24 22:00 Gabapentin 100 mg BID PO 06/01/24 10:00 06/01/24 10:00 100 MG Metoprolol Tartrate 25 mg Q12HR PO 06/01/24 10:00 06/01/24 10:01 25 MG Tamsulosin HCl 0.8 mg QPM PO 06/01/24 18:00 Patient Own Medication 0.5 mg Q72HR PO 06/01/24 04:00 Prednisone 2.5 mg TID PO 06/01/24 06:00 06/01/24 14:15 2.5 MG Patient Own Medication 3 tab QAM@1000 PO 06/02/24 10:00 Patient Own Medication 2 tab HS PO 06/01/24 22:00 Pantoprazole Sodium 40 mg BID IV 06/01/24 22:00 objective General: Awake, mildly confused lying in bed no distress HEENT: PERRL, no scleral icterus, normal hearing, gums without lesions or bleeding, oropharynx clear without erythema or exudate. Neck: Supple without enlargement of the thyroid, or lymphadenopathy. Chest: Decreased breath sounds bilaterally anterior Heart: Regular rate irregular rhythm Abdomen: non-distended, no tenderness to palpation, +BS, no hepatosplenomegaly Extremities: no edema, no cyanosis Neurological: CN II-XII intact, sensation intact in all extremities, 5+ strength in all extremities, no asterixis Skin: No rashes, No jaundice laboratory and microbiology Laboratory Tests 06/01/24 12:54 Test 06/01/24 12:54 Range/Units Serum Glucose 102 74-106 mg/dL Assessment/Plan Patient is a 78-year-old male presented to the hospital with: Hypotension improved Bacteremia with GPC 1/2 bottles UTI with hematuria infection black stool Anemia R/o GI bleed Acute on chronic respiratory failure with hypoxia COPD exacerbation Hypotension requiring vasopressors CKD, HD catheter in place. Elevated troponin DM with hyperglycemia HX bladder cancer Hx left lung transplant Hx AFIB Recommendations: consider broad spectrum antibiotics Vancomycin and Zosyn, follow cultures On amiodarone drip : rate controlled off Levophed 05/30, Blood culture preliminary showed Gram Positive Cocci in clusters 1/2 bottles: ? contamination 05/31, Urine culture preliminary showed Approximately 40,000 CFU/mL Gram Negative Rods 05/30, Chest x-ray showed Right IJ approach hemodialysis catheter in satisfactory position. Pulmonary vascular congestion with right upper and lower lung zone atelectasis. He has h/o lung transplant on immunosuppressnats GI consulted for possible EGD Prognosis guarded Thank you for consult and for giving an opportunity to take care of this patient. Plan discussed with: Other MARTA ALBARRAN MD Jun 01, 2024 18:20
--- NOTE | 2024-06-01 18:27 | DVH ---
EXAM: US LIVER CLINICAL HISTORY: Upper GI bleeding, rule out cirrhosis TECHNIQUE: Grayscale and limited color flow doppler ultrasound of the right upper quadrant is perfor med. COMPARISON: KIDUS on DOS: 03/24/22 Findings: Liver measures 16.5 cm in length with heterogeneous echotexture and nodular contour. No evidence of f ocal hepatic lesions or intra- or extrahepatic ductal dilatation. 2.7 x 2.8 x 3.1 cm echogenic lesion in the left hepatic lobe. Common bile duct measures 0.5 cm in diameter. Normal hepatopedal flow noted within the portal vein. N o perihepatic free fluid is noted. Small bilateral pleural effusions. Gallbladder appears within normal limits with gallbladder wall thickness measuring 0.2 cm. No evidenc e of shadowing calculi, biliary sludge or pericholecystic fluid. Negative sonographic Noriega's sign. Pancreas not well-visualized due to overlying bowel gas. Right kidney measures 9.3 cm with normal contours, echotexture and cortical thickness. No evidence of hydronephrosis, calculi, cystic or solid renal lesions. Partially visualized inferior vena cava unremarkable. Impression: 1. No evidence of acute right upper quadrant abnormalities. 2. Cirrhotic liver morphology. 3. 2.7 x 2.8 x 3.1 cm echogenic lesion in the left hepatic lobe may reflect a lipoma. Attention on fo llow up. 4. Bilateral pleural effusions.
[2024-06-01] MEDS: TAMSULOSIN HYDROCHLORIDE 0.4 MG CAP PO SCH (20:00)
[2024-06-01] MEDS: FINASTERIDE 5 MG TAB PO SCH (22:31)
[2024-06-01] MEDS: ATORVASTATIN 20 MG TAB PO SCH (22:31)
--- NOTE | 2024-06-01 23:56 | DVHPN2 ---
Progress Note - Dictate Date Seen: Jun 01, 2024 Medical Necessity Reason Pt with a Central, PICC or Fol: Yes The following are medically ne: Negrete Catheter Subjective Patient seen and examined at bedside. Remains on supplemental oxygen Overnight events reviewed. vital signs Vital Sign Date Time Temp Pulse Resp B/P (MAP) Pulse Ox O2 Delivery O2 Flow Rate FiO2 06/01/24 22:32 81 109/65 06/01/24 18:38 97.4 20 98 97.4 06/01/24 18:38 Nasal Cannula* 4 36 Total Intake and Output 05/31/24 05/31/24 06/01/24 15:00 23:00 07:00 Intake Total 665.40 ml 2227.87 ml 1033.28 ml Output Total 1350 ml 1150 ml Balance 665.40 ml 877.87 ml -116.72 ml medications Current Medications Medications Dose Ordered Sig/Anish Route Start Time Stop Time Status Last Admin Dose Admin Norepinephrine Bitartrate 250 ml @ 3.75 mls/hr Q24H IV 06/01/24 03:45 Nitroglycerin 0.4 mg Q5MINP PRN SL 06/01/24 03:45 Morphine Sulfate 2 mg Q30M PRN IV 06/01/24 03:45 Acetaminophen 650 mg Q6HP PRN PO 06/01/24 03:45 Albuterol 2.5 mg Q4HPRN PRN NEB 06/01/24 03:45 Ipratropium [place] 0.5 mg Q4HP PRN NEB 06/01/24 03:45 Piperacillin Sod/ Tazobactam Sod 100 ml @ 100 mls/hr BID IV 06/01/24 10:00 06/01/24 22:30 100 MLS/HR Diagnostic Test (Pha) 1 strip Q6HR 06/01/24 06:00 06/01/24 18:00 1 STRIP Insulin Human Regular Q6HR SC 06/01/24 06:00 06/01/24 18:00 3 UNITS Dextrose 50 ml UD PRN IV 06/01/24 03:45 Mycophenolate Mofetil 500 mg BID PO 06/01/24 10:00 06/01/24 22:35 500 MG Lorazepam 0.5 mg Q8HP PRN PO 06/01/24 04:00 06/01/24 06:17 0.5 MG Atorvastatin Calcium 20 mg HS PO 06/01/24 22:00 06/01/24 22:31 20 MG Finasteride 5 mg HS PO 06/01/24 22:00 06/01/24 22:31 5 MG Gabapentin 100 mg BID PO 06/01/24 10:00 06/01/24 22:31 100 MG Metoprolol Tartrate 25 mg Q12HR PO 06/01/24 10:00 06/01/24 22:32 25 MG Tamsulosin HCl 0.8 mg QPM PO 06/01/24 18:00 06/01/24 20:00 0.8 MG Patient Own Medication 0.5 mg Q72HR PO 06/01/24 04:00 Prednisone 2.5 mg TID PO 06/01/24 06:00 06/01/24 22:30 2.5 MG Patient Own Medication 3 tab QAM@1000 PO 06/02/24 10:00 Patient Own Medication 2 tab HS PO 06/01/24 22:00 06/01/24 22:37 2 TAB Pantoprazole Sodium 40 mg BID IV 06/01/24 22:00 06/01/24 22:23 40 MG objective Gen.: Patient lying in bed in no apparent distress. On supplemental oxygen. Head: Normocephalic, atraumatic. Eyes: EOMI/PERRLA. Ears: Normal hearing. Normal anatomy. Neck/trachea: Trachea midline, supple. Nose: Normal external anatomy. Mouth: Moist mucous membranes. Chest: Decreased air entry bilaterally. No wheezing or rhonchi. Cardiovascular: Positive S1, positive S2. Regular rate and rhythm. Abdomen: Positive bowel sounds in all 4 quadrants. Soft, non-tender, non- distended. : Deferred. Rectal: Deferred. Skin: Warm, dry. Intact. Extremities: 2+ radial pulses bilaterally. No lower extremity edema. Neuro: Awake, alert, oriented x3. No gross motor or sensory deficits. Cranial nerves II through XII intact. Gait not assessed. laboratory and microbiology Laboratory Tests 06/01/24 12:54 Test 06/01/24 12:54 Range/Units Serum Glucose 102 74-106 mg/dL Assessment/Plan Impression: Acute on chronic hypoxic respiratory failure Acute exacerbation of COPD Anemia, rule out GI hemorrhage Hypotension on pressors Urinary tract infection with hematuria Chronic kidney disease, on hemodialysis Elevated troponin Bladder cancer s/p left lung transplant Atrial fibrillation Events: Remains on supplemental O2 On 4 liters/minute via nasal cannula Taper O2 as tolerated S/p 1 unit PRBC yesterday Monitor hemoglobin GI recommendations appreciated. Off Levophed, hemodynamically stable. Continue antibiotics Continue bronchodilators PRN Continue steroids Rest of plan as noted below Plan: Supplemental oxygen Keep O2 saturation above 92%. Cardiology recommendations appreciated. Pressors if necessary for hemodynamic support Titrate to keep mean arterial pressure greater than 65 mmHg Monitor renal function Monitor electrolytes. Supplement as necessary Monitor ins and outs Nephrology recommendations appreciated On IV fluids at 100 mL an hour Continue antibiotics Follow up cultures ID recommendations appreciated. Continue steroids Accu-Cheks, insulin sliding scale Monitor hemoglobin Follow up GI recommendations DVT prophylaxis Condition: Critical Prognosis: Poor given multiple comorbidities. Rest of plan per hospitalist and other consultants. A total of 35 minutes of critical care time was spent reviewing the patient record, examining the patient, making a diagnostic and therapeutic plan, discussing this plan with the medical personnel, following up on diagnostic studies and following the patient for clinical stability excluding any and all procedures. At least 50% of this time was spent in direct, [id number] contact. Thank you for allowing me to participate in this patient's care. Further recommendations will depend on patient's clinical course. Please do not hesitate to contact me if you have any questions or concerns. This medical document was created using an electronic medical record system with [employer] dictation system. Although this document has been carefully reviewed, there may still be some phonetic and typographical errors. These areas are purely typographical due to imperfections of the software programs, and do not reflect any compromise in the patient's medical care. Plan discussed with: Patient, Other (RN) LIRO ALVAREZ MD Jun 01, 2024 23:56
[2024-06-02] VITALS (9 sets, daily range): BP systolic 93–117; BP diastolic 55–69; PULSE 75–85; RESP 15–19; TEMP 97.7–98.2; O2SAT 92–98
[2024-06-02 07:22] LABS: Basophils # (auto) 0 10 ^3/uL (0-0.2); Eosinophils # (auto) 0 10 ^3/uL (0-0.8); Hemoglobin 10.3 g/dL (13.5-17.5); Monocytes # (auto) 0.4 10 ^3/uL (0-1.3)
[2024-06-02 07:24] LABS: Basophils % (auto) 0.5 % (0.0-2.0); Eosinophils % (auto) 0.3 % (0.0-7.0); Hematocrit 31.5 % (41.0-53.0); Lymphocytes # (auto) 1.1 10 ^3/uL (0.4-5.4); Mean Corpuscular Hemoglobin 24.1 pg (28.0-32.0); Mean Corpuscular Hgb Conc. 32.7 g/dL (32.0-36.0); Mean Corpuscular Volume 73.6 fL (80.0-100.0); Monocytes % (auto) 7.8 % (0.0-12.0); Neutrophils # (auto) 3.5 10 ^3/uL (1.6-8.6); Neutrophils % (auto) 69.4 % (37.0-80.0); Nucleated Red Blood Cells % 0.4 %; Platelet Count (auto) 126 10^3/uL (140-450); Red Blood Cells 4.28 10^6/uL (4.5-5.90); White Blood Cell 5.1 10^3/uL (4.4-10.8)
[2024-06-02 07:47] LABS: Anion Gap 10 (5-15); Carbon Dioxide 27 mmol/L (20-31); Chloride 104 mmol/L (98-107); Potassium 3.8 mmol/L (3.5-5.1); Sodium 141 mmol/L (136-145)
[2024-06-02 07:53] LABS: Calcium 8.3 mg/dL (8.7-10.4)
[2024-06-02 07:54] LABS: BUN/Creatinine Ratio 9.3 (10.0-20.0); Blood Urea Nitrogen 24 mg/dL (9-23); Glucose 119 mg/dL (74-106)
[2024-06-02 07:55] LABS: Folate (Folic Acid) 7.94 ng/mL (>5.38)
[2024-06-02 07:57] LABS: Red Cell Distribution Width 27.3 % (11.8-14.3)
[2024-06-02 08:07] LABS: Magnesium 1.4 mg/dL (1.6-2.6)
[2024-06-02 08:12] LABS: INR 1.08 (0.9-1.15); Partial Thromboplastin Time 31.2 SEC (24.5-34.5); Prothrombin Time 11.4 sec (9.3-11.8)
--- NOTE | 2024-06-02 09:53 | DVHPN2 ---
Progress Note Date Seen: Jun 02, 2024 Medical Necessity Reason Pt with a Central, PICC or Fol: Yes The following are medically ne: Negrete Catheter Subjective Patient reports: Feels better Review of Systems: HEENT:Normal Objective vital signs Vital Sign Date Time Temp Pulse Resp B/P (MAP) Pulse Ox O2 Delivery O2 Flow Rate FiO2 06/02/24 09:00 98.2 78 17 112/63 (79) 98 98.2 06/01/24 21:25 Nasal Cannula* 4 36 Total Intake and Output 06/01/24 06/01/24 06/02/24 15:00 23:00 07:00 Intake Total 1033.28 ml 233.32 ml 483.34 ml Output Total 480 ml 1102 ml Balance 1033.28 ml -246.68 ml -618.66 ml medications Current Medications Medications Dose Ordered Sig/Anish Route Start Time Stop Time Status Last Admin Dose Admin Norepinephrine Bitartrate 250 ml @ 3.75 mls/hr Q24H IV 06/01/24 03:45 Nitroglycerin 0.4 mg Q5MINP PRN SL 06/01/24 03:45 Morphine Sulfate 2 mg Q30M PRN IV 06/01/24 03:45 Acetaminophen 650 mg Q6HP PRN PO 06/01/24 03:45 Albuterol 2.5 mg Q4HPRN PRN NEB 06/01/24 03:45 Ipratropium [place] 0.5 mg Q4HP PRN NEB 06/01/24 03:45 Piperacillin Sod/ Tazobactam Sod 100 ml @ 100 mls/hr BID IV 06/01/24 10:00 06/01/24 22:30 100 MLS/HR Diagnostic Test (Pha) 1 strip Q6HR 06/01/24 06:00 06/02/24 05:41 1 STRIP Insulin Human Regular Q6HR SC 06/01/24 06:00 06/01/24 18:00 3 UNITS Dextrose 50 ml UD PRN IV 06/01/24 03:45 Mycophenolate Mofetil 500 mg BID PO 06/01/24 10:00 06/01/24 22:35 500 MG Lorazepam 0.5 mg Q8HP PRN PO 06/01/24 04:00 06/01/24 06:17 0.5 MG Atorvastatin Calcium 20 mg HS PO 06/01/24 22:00 06/01/24 22:31 20 MG Finasteride 5 mg HS PO 06/01/24 22:00 06/01/24 22:31 5 MG Gabapentin 100 mg BID PO 06/01/24 10:00 06/01/24 22:31 100 MG Metoprolol Tartrate 25 mg Q12HR PO 06/01/24 10:00 06/01/24 22:32 25 MG Tamsulosin HCl 0.8 mg QPM PO 06/01/24 18:00 06/01/24 20:00 0.8 MG Patient Own Medication 0.5 mg Q72HR PO 06/01/24 04:00 Prednisone 2.5 mg TID PO 06/01/24 06:00 06/02/24 05:52 2.5 MG Patient Own Medication 3 tab QAM@1000 PO 06/02/24 10:00 Patient Own Medication 2 tab HS PO 06/01/24 22:00 06/01/24 22:37 2 TAB Pantoprazole Sodium 40 mg BID IV 06/01/24 22:00 06/01/24 22:23 40 MG Examination: GENERAL:Normal laboratory and microbiology Laboratory Tests 06/02/24 06:43 Test 06/02/24 06:43 Range/Units Serum Glucose 119 H 74-106 mg/dL Microbiology Date/Time Source Procedure Growth Status 05/31/24 11:56 Blood Blood Culture - Preliminary NO GROWTH AFTER 24 HOURS OF INCUBATION. Resulted 05/31/24 11:35 Voided Urine Urine Culture - Preliminary Resulted Problem List/Assessment/Plan Problem List/Assessment/Plan Acute kidney injury superimposed Chronic Kidney Disease secondary hemodynamic mediated Acute on chronic respiratory failure Congestive heart failure exacerbation AFib with RVR Diabetes mellitus type 2 Iron deficiency anemia hypokalemia lung transplant on everlimus Closely monitor fluid and electrolytes potassium replacement Mg replacement Avoid nephrotoxic medications Strict I&Os I agree with diuresis Iron replacement GI consult continue transplant meds per home regime Plan discussed with: Patient ALEISHA SHAVER MD Jun 02, 2024 09:53
[2024-06-02] MEDS: PIPERACILLIN-TAZOB 3.375GM 100 ML IV SCH (10:33)
--- NOTE | 2024-06-02 10:45 | DVHPN2 ---
Progress Note Date Seen: Jun 02, 2024 Resident Creating Document: NEELAM GRAHAM RESIDENT Medical Necessity Reason Pt with a Central, PICC or Fol: Yes The following are medically ne: Negrete Catheter Subjective Review of Systems This is a 78-year-old male patient with PMHx COPD, hypertension, atrial fibrillation on Eliquis, acute on chronic kidney disease, history of lung transplantation, diabetes, bladder mass presented to the ER with a chief complaint of dark black stool. Patient reports black tarry stool for the past 2 weeks, but denies abdominal pain, hematemesis, hemoptysis. He is taking Eliquis starting August 2023 for atrial fibrillation. Patient seen and examined at bedside. Reports no active complaint. Hemoglobin stable in 10. One episode of dark holley stool overnight. Objective vital signs Vital Sign Date Time Temp Pulse Resp B/P (MAP) Pulse Ox O2 Delivery O2 Flow Rate FiO2 06/02/24 10:00 78 112/63 06/02/24 09:00 98.2 17 98 98.2 06/01/24 21:25 Nasal Cannula* 4 36 Total Intake and Output 06/01/24 06/01/24 06/02/24 15:00 23:00 07:00 Intake Total 1033.28 ml 233.32 ml 483.34 ml Output Total 480 ml 1102 ml Balance 1033.28 ml -246.68 ml -618.66 ml medications Current Medications Medications Dose Ordered Sig/Anish Route Start Time Stop Time Status Last Admin Dose Admin Nitroglycerin 0.4 mg Q5MINP PRN SL 06/01/24 03:45 Morphine Sulfate 2 mg Q30M PRN IV 06/01/24 03:45 Acetaminophen 650 mg Q6HP PRN PO 06/01/24 03:45 Albuterol 2.5 mg Q4HPRN PRN NEB 06/01/24 03:45 Ipratropium [place] 0.5 mg Q4HP PRN NEB 06/01/24 03:45 Diagnostic Test (Pha) 1 strip Q6HR 06/01/24 06:00 06/02/24 05:41 1 STRIP Insulin Human Regular Q6HR SC 06/01/24 06:00 06/01/24 18:00 3 UNITS Dextrose 50 ml UD PRN IV 06/01/24 03:45 Mycophenolate Mofetil 500 mg BID PO 06/01/24 10:00 06/02/24 10:06 500 MG Lorazepam 0.5 mg Q8HP PRN PO 06/01/24 04:00 06/01/24 06:17 0.5 MG Atorvastatin Calcium 20 mg HS PO 06/01/24 22:00 06/01/24 22:31 20 MG Finasteride 5 mg HS PO 06/01/24 22:00 06/01/24 22:31 5 MG Gabapentin 100 mg BID PO 06/01/24 10:00 06/02/24 10:01 100 MG Metoprolol Tartrate 25 mg Q12HR PO 06/01/24 10:00 06/01/24 22:32 25 MG Tamsulosin HCl 0.8 mg QPM PO 06/01/24 18:00 06/01/24 20:00 0.8 MG Patient Own Medication 0.5 mg Q72HR PO 06/01/24 04:00 Prednisone 2.5 mg TID PO 06/01/24 06:00 06/02/24 05:52 2.5 MG Patient Own Medication 3 tab QAM@1000 PO 06/02/24 10:00 Patient Own Medication 2 tab HS PO 06/01/24 22:00 06/01/24 22:37 2 TAB Pantoprazole Sodium 40 mg BID IV 06/01/24 22:00 06/02/24 10:00 40 MG Magnesium Sulfate/ Dextrose 100 ml @ 100 mls/hr Q1HR IV 06/02/24 10:00 06/02/24 11:59 Piperacillin Sod/ Tazobactam Sod 100 ml @ 25 mls/hr BID IV 06/02/24 10:31 06/02/24 10:33 25 MLS/HR Examination Patient lying in bed, in no acute distress General: Well-built, afebrile, palor, mucosae are moist Cardiovascular: Regular S1 and S2. No murmurs, gallops or rubs. No JVD elevation. No pedal edema Respiratory: Normal B/L air entry on room air. Clear lung sounds on auscultation Abdomen: Soft, nontender, nondistended, normoactive bowel sounds, no rebound tenderness, no organomegaly, no masses. Rectal exam completed, rectal tone is intact, no hemorrhoids felt, tarry black stool noticed on fingertip. Genitourinary: Deferred MSK/skin: Mobilizes 4 limbs. Skin is dry and warm Neurological: No motor, no sensitive deficits, normal speech. Pupils are isocoric and reactive. Psych/Mental Status: A/Ox4 laboratory and microbiology Laboratory Tests 06/02/24 06:43 Test 06/02/24 06:43 Range/Units Serum Glucose 119 H 74-106 mg/dL Microbiology Date/Time Source Procedure Growth Status 05/31/24 11:56 Blood Blood Culture - Preliminary NO GROWTH AFTER 24 HOURS OF INCUBATION. Resulted 05/31/24 11:35 Voided Urine Urine Culture - Preliminary Resulted Labs and/or images reviewed: Labs reviewed by me, Image(s) reviewed by me Problem List/Assessment/Plan Problem List/Assessment/Plan Assessment: Anemia, likely microcytic due to GI losses Iron-deficiency anemia Probable active upper GI bleeding secondary to questionable varices Probable cirrhosis Hemorrhagic shock likely due to above Persistent Atrial fibrillation DAX secondary to VMN superimposed on CKD Probable UTI secondary to ESBL E coli Hypokalemia Polysubstance use including cocaine and heroin 30 years back History of hepatitis-C 2014-underwent 90 days of treatment History of left lung transplant 2015 Plan: Possible EGD 06/03/2024, last colonoscopy 3-[address] [facility] which was negative Protonix 40 mg IV b.i.d. Maintain hemoglobin greater than 7 and transfuse as necessary Monitor H&H daily Follow up with ultrasound liver Avoid anticoagulation/NSAIDs/aspirin Continue antibiotics per primary team Continue full liquid diet, NPO after midnight Plan discussed with patient in which all questions have been answered Case discussed with Dr. Burns Plan discussed with: Patient My Orders My Orders Orders - NEELAM GRAHAM Procedure Category Date Status Time Pantoprazole PHA 06/01/24 In Process (Protonix) 22:00 LIVER US 06/01/24 Resulted 15:36 Hepatitis B Surface LAB 06/01/24 In Process Antigen 16:39 Hepatitis C Antibody LAB 06/01/24 In Process 16:39 Afp Serum Tumor Marker LAB 06/02/24 Logged 10:42 NEELAM GRAHAM Jun 02, 2024 10:45
[2024-06-02] MEDS: MAGNESIUM SULFATE 1GM/100ML 100 ML IV SCH (10:54)
[2024-06-02] MEDS: EVEROLIMUS 0.5 MG PO SCH (11:09)
[2024-06-02 11:10] LABS: Albumin 3.3 g/dL (3.2-4.8); Bilirubin, Direct 0.2 mg/dL (<0.3); Bilirubin, Total 0.4 mg/dL (0.2-1.0)
[2024-06-02 11:11] LABS: Total Protein 5.5 g/dL (5.7-8.2)
[2024-06-02] MEDS ORDERED: ERTAPENEM SOD INJ 0.5 GM in SODIUM CHL 0.9% 50 ML IV ONE (11:45)
[2024-06-02] MEDS ORDERED: ERTAPENEM SOD INJ 1 GM in SODIUM CHL 0.9% 50 ML IV SCH (13:30)
[2024-06-02] MEDS: ERTAPENEM SOD INJ 1 GM in SODIUM CHL 0.9% 50 ML IV ONE (15:20)
--- NOTE | 2024-06-02 17:10 | DVHPN2 ---
Progress Note - Dictate Date Seen: Jun 02, 2024 Medical Necessity Reason Pt with a Central, PICC or Fol: No The following are medically ne: Negrete Catheter Subjective Clinically feels better. No complaints. Urine culture is growing ESBL E coli. vital signs Vital Sign Date Time Temp Pulse Resp B/P (MAP) Pulse Ox O2 Delivery O2 Flow Rate FiO2 06/02/24 13:00 97.8 85 19 108/60 (76) 98 97.8 06/02/24 10:33 Nasal Cannula* 4 36 Total Intake and Output 06/01/24 06/01/24 06/02/24 15:00 23:00 07:00 Intake Total 1033.28 ml 233.32 ml 483.34 ml Output Total 480 ml 1102 ml Balance 1033.28 ml -246.68 ml -618.66 ml medications Current Medications Medications Dose Ordered Sig/Anish Route Start Time Stop Time Status Last Admin Dose Admin Nitroglycerin 0.4 mg Q5MINP PRN SL 06/01/24 03:45 Morphine Sulfate 2 mg Q30M PRN IV 06/01/24 03:45 Acetaminophen 650 mg Q6HP PRN PO 06/01/24 03:45 Diagnostic Test (Pha) 1 strip Q6HR 06/01/24 06:00 06/02/24 12:23 1 STRIP Insulin Human Regular Q6HR SC 06/01/24 06:00 06/02/24 12:35 4 UNITS Dextrose 50 ml UD PRN IV 06/01/24 03:45 Mycophenolate Mofetil 500 mg BID PO 06/01/24 10:00 06/02/24 10:06 500 MG Lorazepam 0.5 mg Q8HP PRN PO 06/01/24 04:00 06/01/24 06:17 0.5 MG Atorvastatin Calcium 20 mg HS PO 06/01/24 22:00 06/01/24 22:31 20 MG Finasteride 5 mg HS PO 06/01/24 22:00 06/01/24 22:31 5 MG Gabapentin 100 mg BID PO 06/01/24 10:00 06/02/24 10:01 100 MG Metoprolol Tartrate 25 mg Q12HR PO 06/01/24 10:00 06/01/24 22:32 25 MG Tamsulosin HCl 0.8 mg QPM PO 06/01/24 18:00 06/01/24 20:00 0.8 MG Patient Own Medication 0.5 mg Q72HR PO 06/01/24 04:00 Prednisone 2.5 mg TID PO 06/01/24 06:00 06/02/24 15:19 2.5 MG Patient Own Medication 2 tab HS PO 06/01/24 22:00 06/01/24 22:37 2 TAB Pantoprazole Sodium 40 mg BID IV 06/01/24 22:00 06/02/24 10:00 40 MG Patient Own Medication 2 tab QAM@1000 PO 06/02/24 11:00 06/02/24 11:09 2 TAB Ertapenem 0.5 gm/ Sodium Chloride 50 ml @ 100 mls/hr DAILY IV 06/03/24 10:00 objective Alert awake oriented x3. HEENT neck supple no JVD. Heart irregular rate and rhythm S1 plus S2. Lungs fair air movement without wheezing. Abdomen soft nontender positive bowel sounds. Extremities no edema. No active GI bleeding noted. laboratory and microbiology Laboratory Tests 06/02/24 06:43 Test 06/02/24 06:43 Range/Units Serum Glucose 119 H 74-106 mg/dL Assessment/Plan Change antibiotics to ertapenem daily. We will place a midline and arrange for home health for IV antibiotics. Once GI evaluation with the EGD is done we will transition IV amiodarone to oral amiodarone. Hemoglobin is stable. Continue present management as he is on. Further clinical management per clinical course. Discussed with the patient and nurse regarding care plan. Problems(with codes): (1) Atrial fibrillation with RVR (2) Diabetes mellitus (3) Weakness (4) End stage renal failure on dialysis (5) UTI (urinary tract infection) Plan discussed with: Patient, Other HERRERA ENRIQUEZ MD Jun 02, 2024 17:10
--- NOTE | 2024-06-02 18:49 | DVHPN2 ---
Progress Note - Dictate Date Seen: Jun 02, 2024 Medical Necessity Reason Pt with a Central, PICC or Fol: No The following are medically ne: Negrete Catheter Subjective Patient reports that he has been clinically feeling better. afebrile one epidose of dark stool Hemoglobin is 10 after receiving 2 units of packed RBCs. vital signs Vital Sign Date Time Temp Pulse Resp B/P (MAP) Pulse Ox O2 Delivery O2 Flow Rate FiO2 06/02/24 17:00 98.2 83 15 115/60 (78) 98 98.2 06/02/24 10:33 Nasal Cannula* 4 36 Total Intake and Output 06/01/24 06/01/24 06/02/24 15:00 23:00 07:00 Intake Total 1033.28 ml 233.32 ml 483.34 ml Output Total 480 ml 1102 ml Balance 1033.28 ml -246.68 ml -618.66 ml medications Current Medications Medications Dose Ordered Sig/Anish Route Start Time Stop Time Status Last Admin Dose Admin Nitroglycerin 0.4 mg Q5MINP PRN SL 06/01/24 03:45 Morphine Sulfate 2 mg Q30M PRN IV 06/01/24 03:45 Acetaminophen 650 mg Q6HP PRN PO 06/01/24 03:45 Diagnostic Test (Pha) 1 strip Q6HR 06/01/24 06:00 06/02/24 17:34 1 STRIP Insulin Human Regular Q6HR SC 06/01/24 06:00 06/02/24 12:35 4 UNITS Dextrose 50 ml UD PRN IV 06/01/24 03:45 Mycophenolate Mofetil 500 mg BID PO 06/01/24 10:00 06/02/24 10:06 500 MG Lorazepam 0.5 mg Q8HP PRN PO 06/01/24 04:00 06/01/24 06:17 0.5 MG Atorvastatin Calcium 20 mg HS PO 06/01/24 22:00 06/01/24 22:31 20 MG Finasteride 5 mg HS PO 06/01/24 22:00 06/01/24 22:31 5 MG Gabapentin 100 mg BID PO 06/01/24 10:00 06/02/24 10:01 100 MG Metoprolol Tartrate 25 mg Q12HR PO 06/01/24 10:00 06/01/24 22:32 25 MG Tamsulosin HCl 0.8 mg QPM PO 06/01/24 18:00 06/01/24 20:00 0.8 MG Patient Own Medication 0.5 mg Q72HR PO 06/01/24 04:00 Prednisone 2.5 mg TID PO 06/01/24 06:00 06/02/24 15:19 2.5 MG Patient Own Medication 2 tab HS PO 06/01/24 22:00 06/01/24 22:37 2 TAB Pantoprazole Sodium 40 mg BID IV 06/01/24 22:00 06/02/24 10:00 40 MG Patient Own Medication 2 tab QAM@1000 PO 06/02/24 11:00 06/02/24 11:09 2 TAB Ertapenem 0.5 gm/ Sodium Chloride 50 ml @ 100 mls/hr DAILY IV 06/03/24 10:00 objective General: Awake, mildly confused lying in bed no distress HEENT: PERRL, no scleral icterus, normal hearing, gums without lesions or bleeding, oropharynx clear without erythema or exudate. Neck: Supple without enlargement of the thyroid, or lymphadenopathy. Chest: Decreased breath sounds bilaterally anterior Heart: Regular rate irregular rhythm Abdomen: non-distended, no tenderness to palpation, +BS, no hepatosplenomegaly Extremities: no edema, no cyanosis Neurological: CN II-XII intact, sensation intact in all extremities, 5+ strength in all extremities, no asterixis Skin: No rashes, No jaundice laboratory and microbiology Laboratory Tests 06/02/24 06:43 Test 06/02/24 06:43 Range/Units Serum Glucose 119 H 74-106 mg/dL Assessment/Plan Patient is a 78-year-old male presented to the hospital with: Hypotension resolved bacteremia : staphylcoccus epidermidis UTI with hematuria infection: eSBL E coli Anemia R/o GI bleed Acute on chronic respiratory failure with hypoxia COPD exacerbation Hypotension requiring vasopressors CKD, HD catheter in place. Elevated troponin DM with hyperglycemia HX bladder cancer Hx left lung transplant Hx AFIB Recommendations: Bacteremia is likely contamination /2 with staph epidermidis Abx are switched to IV Ertapenem GI on board, plan for EGD tomorrow Nephro on board for HD monitor H and H urine is likely colonization, recommend 3 days of IV ertapenem 05/30, Blood culture preliminary showed staph epi /2 bottle 05/31, Blood culture preliminary showed no growth 05/31, Urine culture preliminary showed Approximately 40,000 CFU/mL ESBL e coli, likely colonization 05/30, Chest x-ray showed Right IJ approach hemodialysis catheter in satisfactory position. Pulmonary vascular congestion with right upper and lower lung zone atelectasis. Prognosis guarded Thank you for consult and for giving an opportunity to take care of this patient. Plan discussed with: MARTA Lorenzo MD Jun 02, 2024 18:49
--- NOTE | 2024-06-02 23:32 | DVHPN2 ---
Progress Note - Dictate Date Seen: Jun 02, 2024 Medical Necessity Reason Pt with a Central, PICC or Fol: Yes The following are medically ne: Soto Catheter Reason for soto catheter: Strict I&O Subjective Patient seen and examined at bedside. Remains on supplemental oxygen Overnight events reviewed. vital signs Vital Sign Date Time Temp Pulse Resp B/P (MAP) Pulse Ox O2 Delivery O2 Flow Rate FiO2 06/02/24 22:53 81 108/63 06/02/24 17:00 98.2 15 98 98.2 06/02/24 10:33 Nasal Cannula* 4 36 Total Intake and Output 06/01/24 06/01/24 06/02/24 15:00 23:00 07:00 Intake Total 1033.28 ml 233.32 ml 483.34 ml Output Total 480 ml 1102 ml Balance 1033.28 ml -246.68 ml -618.66 ml medications Current Medications Medications Dose Ordered Sig/Anish Route Start Time Stop Time Status Last Admin Dose Admin Nitroglycerin 0.4 mg Q5MINP PRN SL 06/01/24 03:45 Morphine Sulfate 2 mg Q30M PRN IV 06/01/24 03:45 Acetaminophen 650 mg Q6HP PRN PO 06/01/24 03:45 Diagnostic Test (Pha) 1 strip Q6HR 06/01/24 06:00 06/02/24 17:34 1 STRIP Insulin Human Regular Q6HR SC 06/01/24 06:00 06/02/24 12:35 4 UNITS Dextrose 50 ml UD PRN IV 06/01/24 03:45 Mycophenolate Mofetil 500 mg BID PO 06/01/24 10:00 06/02/24 23:26 500 MG Lorazepam 0.5 mg Q8HP PRN PO 06/01/24 04:00 06/01/24 06:17 0.5 MG Atorvastatin Calcium 20 mg HS PO 06/01/24 22:00 06/02/24 22:55 20 MG Finasteride 5 mg HS PO 06/01/24 22:00 06/02/24 22:53 5 MG Gabapentin 100 mg BID PO 06/01/24 10:00 06/02/24 22:53 100 MG Metoprolol Tartrate 25 mg Q12HR PO 06/01/24 10:00 06/02/24 22:53 25 MG Tamsulosin HCl 0.8 mg QPM PO 06/01/24 18:00 06/02/24 19:11 0.8 MG Patient Own Medication 0.5 mg Q72HR PO 06/01/24 04:00 Prednisone 2.5 mg TID PO 06/01/24 06:00 06/02/24 22:55 2.5 MG Patient Own Medication 2 tab HS PO 06/01/24 22:00 06/02/24 23:27 2 TAB Pantoprazole Sodium 40 mg BID IV 06/01/24 22:00 06/02/24 22:56 40 MG Patient Own Medication 2 tab QAM@1000 PO 06/02/24 11:00 06/02/24 11:09 2 TAB Ertapenem 0.5 gm/ Sodium Chloride 50 ml @ 100 mls/hr DAILY IV 06/03/24 10:00 objective Gen.: Patient lying in bed in no apparent distress. On supplemental oxygen. Head: Normocephalic, atraumatic. Eyes: EOMI/PERRLA. Ears: Normal hearing. Normal anatomy. Neck/trachea: Trachea midline, supple. Nose: Normal external anatomy. Mouth: Moist mucous membranes. Chest: Decreased air entry bilaterally. No wheezing or rhonchi. Cardiovascular: Positive S1, positive S2. Regular rate and rhythm. Abdomen: Positive bowel sounds in all 4 quadrants. Soft, non-tender, non- distended. : Deferred. Rectal: Deferred. Skin: Warm, dry. Intact. Extremities: 2+ radial pulses bilaterally. No lower extremity edema. Neuro: Awake, alert, oriented x3. No gross motor or sensory deficits. Cranial nerves II through XII intact. Gait not assessed. laboratory and microbiology Laboratory Tests 06/02/24 06:43 Test 06/02/24 06:43 Range/Units Serum Glucose 119 H 74-106 mg/dL Assessment/Plan Impression: Acute on chronic hypoxic respiratory failure Acute exacerbation of COPD Anemia, rule out GI hemorrhage Hypotension on pressors Urinary tract infection with hematuria Chronic kidney disease, on hemodialysis Elevated troponin Bladder cancer s/p left lung transplant Atrial fibrillation Events: Remains on supplemental O2 On 4 liters/minute via nasal cannula Taper O2 as tolerated Monitor hemoglobin - stable GI recommendations appreciated. Off pressors, hemodynamically stable. Continue antibiotics Continue bronchodilators Continue steroids - prednisone On immunosuppressants due to lung transplant. Urine culture grew E.coli, ESBL. Blood cultures grew Staph epidermidis ID recs appreciated. Accu-Cheks, ISS. Protonix BID for GI prophylaxis Rest of plan as noted below Plan: Supplemental oxygen Keep O2 saturation above 92%. Cardiology recommendations appreciated. Pressors if necessary for hemodynamic support Titrate to keep mean arterial pressure greater than 65 mmHg Monitor renal function Monitor electrolytes. Supplement as necessary Monitor ins and outs Nephrology recommendations appreciated On IV fluids at 100 mL an hour Continue antibiotics Follow up cultures ID recommendations appreciated. Continue steroids Accu-Cheks, insulin sliding scale Monitor hemoglobin Follow up GI recommendations DVT prophylaxis Prognosis: Poor given multiple comorbidities. Rest of plan per hospitalist and other consultants. A total of 51 minutes of clinical care time was spent reviewing the patient record, examining the patient, making a diagnostic and therapeutic plan, discussing this plan with the medical personnel, following up on diagnostic studies and following the patient for clinical stability excluding any and all procedures. At least 50% of this time was spent in direct, [id number] contact. Thank you for allowing me to participate in this patient's care. Further recommendations will depend on patient's clinical course. Please do not hesitate to contact me if you have any questions or concerns. This medical document was created using an electronic medical record system with [employer] dictation system. Although this document has been carefully reviewed, there may still be some phonetic and typographical errors. These areas are purely typographical due to imperfections of the software programs, and do not reflect any compromise in the patient's medical care. Plan discussed with: Patient, Other (REY Sanchez) LIOR ALVAREZ MD Jun 02, 2024 23:32
[2024-06-03] VITALS (9 sets, daily range): BP systolic 109–127; BP diastolic 62–73; PULSE 63–87; RESP 16–19; TEMP 97.7–98.1; O2SAT 94–100
[2024-06-03 06:34] LABS: Basophils # (auto) 0 10 ^3/uL (0-0.2); Basophils % (auto) 0.3 % (0.0-2.0); Eosinophils # (auto) 0 10 ^3/uL (0-0.8); Eosinophils % (auto) 0.2 % (0.0-7.0); Hematocrit 29.7 % (41.0-53.0); Hemoglobin 9.9 g/dL (13.5-17.5); Lymphocytes % (auto) 21.3 % (10.0-50.0); Mean Corpuscular Hemoglobin 24.6 pg (28.0-32.0); Mean Corpuscular Hgb Conc. 33.3 g/dL (32.0-36.0); Mean Corpuscular Volume 73.9 fL (80.0-100.0); Monocytes # (auto) 0.4 10 ^3/uL (0-1.3); Monocytes % (auto) 8.4 % (0.0-12.0); Neutrophils # (auto) 3.3 10 ^3/uL (1.6-8.6); Neutrophils % (auto) 69.8 % (37.0-80.0); Nucleated Red Blood Cells % 0.3 %; Platelet Count (auto) 124 10^3/uL (140-450); Red Blood Cells 4.01 10^6/uL (4.5-5.90); White Blood Cell 4.8 10^3/uL (4.4-10.8)
[2024-06-03 06:35] LABS: Red Cell Distribution Width 27.6 % (11.8-14.3)
[2024-06-03 06:50] LABS: Alanine Aminotransferase 13 U/L (7-40); Albumin 3.3 g/dL (3.2-4.8); Alkaline Phosphatase 61 U/L (46-116); Anion Gap 11 (5-15); Aspartate Aminotransferase 19 U/L (13-40); BUN/Creatinine Ratio 8.1 (10.0-20.0); Blood Urea Nitrogen 20 mg/dL (9-23); Carbon Dioxide 24 mmol/L (20-31); Chloride 105 mmol/L (98-107); Magnesium 1.8 mg/dL (1.6-2.6); Sodium 140 mmol/L (136-145)
[2024-06-03 06:51] LABS: Bilirubin, Direct 0.2 mg/dL (<0.3); Bilirubin, Total 0.4 mg/dL (0.2-1.0)
[2024-06-03 06:54] LABS: Calcium 8.1 mg/dL (8.7-10.4); Glucose 131 mg/dL (74-106); Potassium 3.5 mmol/L (3.5-5.1); Total Protein 5.6 g/dL (5.7-8.2)
[2024-06-03 08:11] LABS: Anisocytosis Moderate; Hypochromia Slight; Platelet Estimate Decreased
[2024-06-03 08:12] LABS: Ovalocytes FEW; Target Cell FEW
--- NOTE | 2024-06-03 08:27 | DVHPN2 ---
Progress Note - Dictate Date Seen: Jun 03, 2024 Medical Necessity Reason Pt with a Central, PICC or Fol: No The following are medically ne: Negrete Catheter Subjective Status post EGD. Showed some gastritis but no active bleeding. Heart rate is controlled. vital signs Vital Sign Date Time Temp Pulse Resp B/P (MAP) Pulse Ox O2 Delivery O2 Flow Rate FiO2 06/03/24 05:00 98.1 78 18 117/67 (84) 100 98.1 06/02/24 20:00 Nasal Cannula* 4 36 Total Intake and Output 06/02/24 06/02/24 06/03/24 15:00 23:00 07:00 Intake Total 300 ml 1249.92 ml 0 ml Output Total 1200 ml 300 ml Balance 300 ml 49.92 ml -300 ml medications Current Medications Medications Dose Ordered Sig/Anish Route Start Time Stop Time Status Last Admin Dose Admin Nitroglycerin 0.4 mg Q5MINP PRN SL 06/01/24 03:45 Morphine Sulfate 2 mg Q30M PRN IV 06/01/24 03:45 Acetaminophen 650 mg Q6HP PRN PO 06/01/24 03:45 Diagnostic Test (Pha) 1 strip Q6HR 06/01/24 06:00 06/03/24 06:26 1 STRIP Insulin Human Regular Q6HR SC 06/01/24 06:00 06/02/24 12:35 4 UNITS Dextrose 50 ml UD PRN IV 06/01/24 03:45 Mycophenolate Mofetil 500 mg BID PO 06/01/24 10:00 06/02/24 23:26 500 MG Lorazepam 0.5 mg Q8HP PRN PO 06/01/24 04:00 06/01/24 06:17 0.5 MG Atorvastatin Calcium 20 mg HS PO 06/01/24 22:00 06/02/24 22:55 20 MG Finasteride 5 mg HS PO 06/01/24 22:00 06/02/24 22:53 5 MG Gabapentin 100 mg BID PO 06/01/24 10:00 06/02/24 22:53 100 MG Metoprolol Tartrate 25 mg Q12HR PO 06/01/24 10:00 06/02/24 22:53 25 MG Tamsulosin HCl 0.8 mg QPM PO 06/01/24 18:00 06/02/24 19:11 0.8 MG Patient Own Medication 0.5 mg Q72HR PO 06/01/24 04:00 Prednisone 2.5 mg TID PO 06/01/24 06:00 06/03/24 06:25 2.5 MG Patient Own Medication 2 tab HS PO 06/01/24 22:00 06/02/24 23:27 2 TAB Pantoprazole Sodium 40 mg BID IV 06/01/24 22:00 06/02/24 22:56 40 MG Patient Own Medication 2 tab QAM@1000 PO 06/02/24 11:00 06/02/24 11:09 2 TAB Ertapenem 0.5 gm/ Sodium Chloride 50 ml @ 100 mls/hr DAILY IV 06/03/24 10:00 objective General: Awake, mildly confused lying in bed no distress HEENT: PERRL, no scleral icterus, normal hearing, gums without lesions or bleeding, oropharynx clear without erythema or exudate. Neck: Supple without enlargement of the thyroid, or lymphadenopathy. Chest: Decreased breath sounds bilaterally anterior Heart: Regular rate irregular rhythm Abdomen: non-distended, no tenderness to palpation, +BS, no hepatosplenomegaly Extremities: no edema, no cyanosis Neurological: CN II-XII intact, sensation intact in all extremities, 5+ strength in all extremities, no asterixis Skin: No rashes, No jaundice laboratory and microbiology Laboratory Tests 06/03/24 05:29 Test 06/03/24 05:29 Range/Units Serum Glucose 131 H 74-106 mg/dL Assessment/Plan Patient is a 78-year-old male presented to the hospital with: Hypotension resolved bacteremia : Staphylococcus epidermidis UTI with hematuria infection: eSBL E coli Anemia R/o GI bleed Acute on chronic respiratory failure with hypoxia COPD exacerbation Hypotension requiring vasopressors CKD, HD catheter in place. Elevated troponin DM with hyperglycemia HX bladder cancer Hx left lung transplant Hx AFIB Recommendations: Bacteremia is likely contamination 1/2 with staph epidermidis Abx are switched to IV Ertapenem GI on board, Nephro on board for HD monitor H and H urine is likely colonization, recommend 3 days of IV ertapenem 05/30, Blood culture preliminary showed staph epi 1/2 bottle 05/31, Blood culture preliminary showed no growth 05/31, Urine culture preliminary showed Approximately 40,000 CFU/mL ESBL e coli, likely colonization 05/30, Chest x-ray showed Right IJ approach hemodialysis catheter in satisfactory position. Pulmonary vascular congestion with right upper and lower lung zone atelectasis. Prognosis guarded Thank you for consult and for giving an opportunity to take care of this patient. Plan discussed with: MARTA Lorenzo MD Jun 03, 2024 08:27
[2024-06-03] MEDS ORDERED: LIDOCAINE VISCOUS 2% 15ML UD ONE (13:04)
[2024-06-03] MEDS ORDERED: fentaNYL CITRATE 100 MCG/2 ML VL ONE (13:27)
[2024-06-03] MEDS ORDERED: MIDAZOLAM HCL 2MG/2ML 2ml VIAL (1mg/ml) ONE (13:27)
[2024-06-03] MEDS ORDERED: PROPOFOL 10 MG/ML 20 ML IV ONE (13:46)
--- NOTE | 2024-06-03 14:11 | DVHOP2 ---
Operative Report DATE OF OPERATION: 06/03/24 PROCEDURE: Upper Endoscopy with biopsy. PREOPERATIVE INDICATION: The patient is a 78 -year-old male undergoing endoscopy for anemia and GI bleed POSTOPERATIVE DIAGNOSES: 1. 2 cm sliding-type hiatal hernia with slightly irregular squamocolumnar junction no significant erosive esophagitis, there were no esophageal varices 2. Minimal gastritis otherwise normal examination up to the 2nd and 3rd part of the duodenum with good bile drainage and no fresh or old blood in the upper GI tract PROCEDURE PERFORMED BY: Darrel Burns GI NURSE: Som SCOPE: Olympus videoendoscope. ASA CLASS: 3. PREOPERATIVE MEDICATIONS: MAC sedation, Dr. Wu PROCEDURE IN DETAIL: After obtaining an informed consent, the patient was placed on left lateral decubitus position. The patient was then sedated with the above medications. A bite block was placed between his teeth. The endoscope was then passed through the oropharynx, into the esophagus, and through the stomach and pylorus up to the second and third part of the duodenum. The endoscope was then withdrawn. And 3rd part of the duodenum and the duodenal bulb were normal. Duodenal b iopsies were obtained. The pre-pyloric area antrum and body showed minimal gastritis. Gastric biopsies were obtained. On retroflexion the fundus cardia and angularis were normal. The endoscope was then withdrawn into the distal esophagus. Patient had a 2 cm sliding-type hiatal hernia with no significant esophagitis and there were no esophageal varices There was no fresh or old blood in the upper GI tract. Patient had good bile drainage The patient tolerated the procedure well without difficulty. COMPLICATIONS : None SPECIMENS: Duodenal biopsies Gastric biopsies DISPOSITION: Transfer back to the floor Stable PLAN: 1. Await for biopsy result 2. Will place pt on Protonix 40 mg p.o. daily 3. Resume GI soft diet advance as tolerated 4. Outpatient follow up with GI Services to discuss elective colonoscopy if not recently done DARREL BURNS MD Jun 03, 2024 14:11
--- NOTE | 2024-06-03 14:28 | DVHPN2 ---
Progress Note Date Seen: Jun 03, 2024 Medical Necessity Reason Pt with a Central, PICC or Fol: Yes The following are medically ne: Soto Catheter Reason for soto catheter: Strict I&O Objective vital signs Vital Sign Date Time Temp Pulse Resp B/P (MAP) Pulse Ox O2 Delivery O2 Flow Rate FiO2 06/03/24 12:19 98.0 63 16 124/72 (89) 97 98.0 06/03/24 08:00 Nasal Cannula* 4 36 Total Intake and Output 06/02/24 06/02/24 06/03/24 15:00 23:00 07:00 Intake Total 300 ml 1249.92 ml 0 ml Output Total 1200 ml 300 ml Balance 300 ml 49.92 ml -300 ml medications Current Medications Medications Dose Ordered Sig/Anish Route Start Time Stop Time Status Last Admin Dose Admin Nitroglycerin 0.4 mg Q5MINP PRN SL 06/01/24 03:45 Morphine Sulfate 2 mg Q30M PRN IV 06/01/24 03:45 Acetaminophen 650 mg Q6HP PRN PO 06/01/24 03:45 Diagnostic Test (Pha) 1 strip Q6HR 06/01/24 06:00 06/03/24 11:48 1 STRIP Insulin Human Regular Q6HR SC 06/01/24 06:00 06/02/24 12:35 4 UNITS Dextrose 50 ml UD PRN IV 06/01/24 03:45 Mycophenolate Mofetil 500 mg BID PO 06/01/24 10:00 06/02/24 23:26 500 MG Lorazepam 0.5 mg Q8HP PRN PO 06/01/24 04:00 06/01/24 06:17 0.5 MG Atorvastatin Calcium 20 mg HS PO 06/01/24 22:00 06/02/24 22:55 20 MG Finasteride 5 mg HS PO 06/01/24 22:00 06/02/24 22:53 5 MG Gabapentin 100 mg BID PO 06/01/24 10:00 06/02/24 22:53 100 MG Metoprolol Tartrate 25 mg Q12HR PO 06/01/24 10:00 06/02/24 22:53 25 MG Tamsulosin HCl 0.8 mg QPM PO 06/01/24 18:00 06/02/24 19:11 0.8 MG Patient Own Medication 0.5 mg Q72HR PO 06/01/24 04:00 Prednisone 2.5 mg TID PO 06/01/24 06:00 06/03/24 06:25 2.5 MG Patient Own Medication 2 tab HS PO 06/01/24 22:00 06/02/24 23:27 2 TAB Pantoprazole Sodium 40 mg BID IV 06/01/24 22:00 06/03/24 11:14 40 MG Patient Own Medication 2 tab QAM@1000 PO 06/02/24 11:00 06/02/24 11:09 2 TAB Ertapenem 0.5 gm/ Sodium Chloride 50 ml @ 100 mls/hr DAILY IV 06/03/24 10:00 Examination: GENERAL:Normal, CVS:Normal, ABDOMEN:Normal, SKIN:Normal laboratory and microbiology Laboratory Tests 06/03/24 05:29 Test 06/03/24 05:29 Range/Units Serum Glucose 131 H 74-106 mg/dL Microbiology Date/Time Source Procedure Growth Status 06/02/24 03:54 Nose MRSA Screen - Final Complete 05/31/24 11:56 Blood Blood Culture - Preliminary NO GROWTH AFTER 72 HOURS OF INCUBATION. Resulted 05/31/24 11:35 Voided Urine Urine Culture - Final Escherichia coli - ESBL Complete Problem List/Assessment/Plan Problem List/Assessment/Plan Acute kidney injury superimposed Chronic Kidney Disease secondary hemodynamic mediated Acute on chronic respiratory failure Congestive heart failure exacerbation AFib with RVR Diabetes mellitus type 2 Iron deficiency anemia hypokalemia lung transplant on everlimus Acute kidney injury patient review on previous hospitalizations was on HD due to DAX. cr has been stable over last several days will monitor uop and assess need for HD went for EGD today Avoid nephrotoxic medications Strict I&Os I agree with diuresis Iron replacement, electrolytes replacement GI consult continue transplant meds per home regime Plan discussed with: Patient ALEISHA SHAVER MD Jun 03, 2024 14:28
[2024-06-03] MEDS: ERTAPENEM SOD INJ 0.5 GM in SODIUM CHL 0.9% 50 ML IV SCH (14:33)
--- NOTE | 2024-06-03 15:11 | DVHPN2 ---
Progress Note - Dictate Date Seen: Jun 03, 2024 Medical Necessity Reason Pt with a Central, PICC or Fol: No The following are medically ne: Soto Catheter Reason for soto catheter: Strict I&O Subjective Status post EGD. Showed some gastritis but no active bleeding. Heart rate is controlled. Infectious Disease recommending three days of IV antibiotic for ESBL E coli feels most likely colonization. vital signs Vital Sign Date Time Temp Pulse Resp B/P (MAP) Pulse Ox O2 Delivery O2 Flow Rate FiO2 06/03/24 14:34 86 118/73 06/03/24 14:32 97.8 16 94 97.8 06/03/24 13:48 Mask 6.0 96 Total Intake and Output 06/02/24 06/02/24 06/03/24 15:00 23:00 07:00 Intake Total 300 ml 1249.92 ml 0 ml Output Total 1200 ml 300 ml Balance 300 ml 49.92 ml -300 ml medications Current Medications Medications Dose Ordered Sig/Anish Route Start Time Stop Time Status Last Admin Dose Admin Nitroglycerin 0.4 mg Q5MINP PRN SL 06/01/24 03:45 Morphine Sulfate 2 mg Q30M PRN IV 06/01/24 03:45 Acetaminophen 650 mg Q6HP PRN PO 06/01/24 03:45 Diagnostic Test (Pha) 1 strip Q6HR 06/01/24 06:00 06/03/24 11:48 1 STRIP Insulin Human Regular Q6HR SC 06/01/24 06:00 06/02/24 12:35 4 UNITS Dextrose 50 ml UD PRN IV 06/01/24 03:45 Mycophenolate Mofetil 500 mg BID PO 06/01/24 10:00 06/03/24 14:34 500 MG Lorazepam 0.5 mg Q8HP PRN PO 06/01/24 04:00 06/01/24 06:17 0.5 MG Atorvastatin Calcium 20 mg HS PO 06/01/24 22:00 06/02/24 22:55 20 MG Finasteride 5 mg HS PO 06/01/24 22:00 06/02/24 22:53 5 MG Gabapentin 100 mg BID PO 06/01/24 10:00 06/03/24 14:35 100 MG Metoprolol Tartrate 25 mg Q12HR PO 06/01/24 10:00 06/03/24 14:34 25 MG Tamsulosin HCl 0.8 mg QPM PO 06/01/24 18:00 06/02/24 19:11 0.8 MG Patient Own Medication 0.5 mg Q72HR PO 06/01/24 04:00 Prednisone 2.5 mg TID PO 06/01/24 06:00 06/03/24 14:36 2.5 MG Patient Own Medication 2 tab HS PO 06/01/24 22:00 06/02/24 23:27 2 TAB Pantoprazole Sodium 40 mg BID IV 06/01/24 22:00 06/03/24 11:14 40 MG Patient Own Medication 2 tab QAM@1000 PO 06/02/24 11:00 06/03/24 14:34 2 TAB Ertapenem 0.5 gm/ Sodium Chloride 50 ml @ 100 mls/hr DAILY IV 06/03/24 10:00 06/03/24 14:33 100 MLS/HR objective Alert awake oriented x3. HEENT neck supple no JVD. Heart irregular rate and rhythm S1 plus S2. Lungs fair air movement without wheezing. Abdomen soft nontender positive bowel sounds. Extremities no edema. No active GI bleeding noted. laboratory and microbiology Laboratory Tests 06/03/24 05:29 Test 06/03/24 05:29 Range/Units Serum Glucose 131 H 74-106 mg/dL Assessment/Plan Change antibiotics to ertapenem daily. Continue current antibiotics. We will DC IV amiodarone given rate control. Start him on oral amiodarone. Continue Protonix b.i.d. for gastritis. Continue rest of supportive care and treatment. If he remains stable consider discharge home tomorrow. Discussed with the patient and nurse at bedside regarding care plan. Plan discussed with: Other HERRERA ENRIQUEZ MD Jun 03, 2024 15:11
[2024-06-03] MEDS: PANTOPRAZOLE 40 MG TAB PO SCH (18:28)
--- NOTE | 2024-06-03 22:34 | DVHPN2 ---
Progress Note - Dictate Date Seen: Jun 03, 2024 Medical Necessity Reason Pt with a Central, PICC or Fol: Yes The following are medically ne: Soto Catheter Reason for soto catheter: Strict I&O Subjective Patient seen and examined at bedside. Remains on supplemental oxygen Overnight events reviewed. vital signs Vital Sign Date Time Temp Pulse Resp B/P (MAP) Pulse Ox O2 Delivery O2 Flow Rate FiO2 06/03/24 21:00 97.9 83 18 123/69 (87) 97 97.9 06/03/24 13:48 Mask 6.0 96 Total Intake and Output 06/02/24 06/02/24 06/03/24 15:00 23:00 07:00 Intake Total 300 ml 1249.92 ml 0 ml Output Total 1200 ml 300 ml Balance 300 ml 49.92 ml -300 ml medications Current Medications Medications Dose Ordered Sig/Anish Route Start Time Stop Time Status Last Admin Dose Admin Nitroglycerin 0.4 mg Q5MINP PRN SL 06/01/24 03:45 Morphine Sulfate 2 mg Q30M PRN IV 06/01/24 03:45 Acetaminophen 650 mg Q6HP PRN PO 06/01/24 03:45 Diagnostic Test (Pha) 1 strip Q6HR 06/01/24 06:00 06/03/24 16:50 1 STRIP Insulin Human Regular Q6HR SC 06/01/24 06:00 06/02/24 12:35 4 UNITS Dextrose 50 ml UD PRN IV 06/01/24 03:45 Mycophenolate Mofetil 500 mg BID PO 06/01/24 10:00 06/03/24 14:34 500 MG Lorazepam 0.5 mg Q8HP PRN PO 06/01/24 04:00 06/01/24 06:17 0.5 MG Atorvastatin Calcium 20 mg HS PO 06/01/24 22:00 06/02/24 22:55 20 MG Finasteride 5 mg HS PO 06/01/24 22:00 06/02/24 22:53 5 MG Gabapentin 100 mg BID PO 06/01/24 10:00 06/03/24 14:35 100 MG Metoprolol Tartrate 25 mg Q12HR PO 06/01/24 10:00 06/03/24 14:34 25 MG Tamsulosin HCl 0.8 mg QPM PO 06/01/24 18:00 06/03/24 18:28 0.8 MG Patient Own Medication 0.5 mg Q72HR PO 06/01/24 04:00 Prednisone 2.5 mg TID PO 06/01/24 06:00 06/03/24 14:36 2.5 MG Patient Own Medication 2 tab HS PO 06/01/24 22:00 06/02/24 23:27 2 TAB Patient Own Medication 2 tab QAM@1000 PO 06/02/24 11:00 06/03/24 14:34 2 TAB Ertapenem 0.5 gm/ Sodium Chloride 50 ml @ 100 mls/hr DAILY IV 06/03/24 10:00 06/03/24 14:33 100 MLS/HR Pantoprazole Sodium 40 mg BID@0600,1700 PO 06/03/24 17:00 06/03/24 18:28 40 MG Amiodarone HCl 200 mg Q12HR PO 06/03/24 22:00 objective Gen.: Patient lying in bed in no apparent distress. On supplemental oxygen. Head: Normocephalic, atraumatic. Eyes: EOMI/PERRLA. Ears: Normal hearing. Normal anatomy. Neck/trachea: Trachea midline, supple. Nose: Normal external anatomy. Mouth: Moist mucous membranes. Chest: Decreased air entry bilaterally. No wheezing or rhonchi. Cardiovascular: Positive S1, positive S2. Regular rate and rhythm. Abdomen: Positive bowel sounds in all 4 quadrants. Soft, non-tender, non- distended. : Deferred. Rectal: Deferred. Skin: Warm, dry. Intact. Extremities: 2+ radial pulses bilaterally. No lower extremity edema. Neuro: Awake, alert, oriented x3. No gross motor or sensory deficits. Cranial nerves II through XII intact. Gait not assessed. laboratory and microbiology Laboratory Tests 06/03/24 05:29 Test 06/03/24 05:29 Range/Units Serum Glucose 131 H 74-106 mg/dL Assessment/Plan Impression: Acute on chronic hypoxic respiratory failure Acute exacerbation of COPD Anemia, rule out GI hemorrhage Hypotension on pressors Urinary tract infection with hematuria Chronic kidney disease, on hemodialysis Elevated troponin Bladder cancer s/p left lung transplant Atrial fibrillation Events: Remains on supplemental O2 On 3 liters/minute via nasal cannula Taper O2 as tolerated Incentive spirometry Continue antibiotics Continue steroids - prednisone On immunosuppressants due to lung transplant. Urine culture grew E.coli, ESBL. Blood cultures grew Staph epidermidis ID recs appreciated. Status post EGD GI recommendations appreciated Monitor hemoglobin Accu-Cheks, ISS. Protonix BID for GI prophylaxis Patient is stable for discharge from the pulmonary standpoint. Rest of plan as noted below Plan: Supplemental oxygen Keep O2 saturation above 92%. Cardiology recommendations appreciated. Pressors if necessary for hemodynamic support Titrate to keep mean arterial pressure greater than 65 mmHg Monitor renal function Monitor electrolytes. Supplement as necessary Monitor ins and outs Nephrology recommendations appreciated On IV fluids at 100 mL an hour Bronchodilators PRN Continue antibiotics Follow up cultures ID recommendations appreciated. Continue steroids Accu-Cheks, insulin sliding scale Monitor hemoglobin Follow up GI recommendations DVT prophylaxis Prognosis: Poor given multiple comorbidities. Rest of plan per hospitalist and other consultants. A total of 51 minutes of clinical care time was spent reviewing the patient record, examining the patient, making a diagnostic and therapeutic plan, discussing this plan with the medical personnel, following up on diagnostic studies and following the patient for clinical stability excluding any and all procedures. At least 50% of this time was spent in direct, [id number] contact. Thank you for allowing me to participate in this patient's care. Further recommendations will depend on patient's clinical course. Please do not hesitate to contact me if you have any questions or concerns. This medical document was created using an electronic medical record system with [employer] dictation system. Although this document has been carefully reviewed, there may still be some phonetic and typographical errors. These areas are purely typographical due to imperfections of the software programs, and do not reflect any compromise in the patient's medical care. Plan discussed with: Patient, Other (REY Cortes) LIOR ALVAREZ MD Jun 03, 2024 22:34
[2024-06-03] MEDS: AMIODARONE HCL 200 MG TAB PO SCH (22:51)
[2024-06-04] VITALS (8 sets, daily range): BP systolic 112–128; BP diastolic 68–78; PULSE 70–87; RESP 17–18; TEMP 36.5–36.8; O2SAT 96–97
[2024-06-04 09:07] LABS: Hepatitis B Surface Antigen Negative (Negative)
[2024-06-04 09:32] LABS: Hepatitis C Antibody Reactive (Negative)
--- NOTE | 2024-06-04 09:38 | DVHPN2 ---
Progress Note - Dictate Date Seen: Jun 04, 2024 Medical Necessity Reason Pt with a Central, PICC or Fol: Yes The following are medically ne: Soto Catheter Reason for soto catheter: Strict I&O Subjective Status post EGD. Showed some gastritis but no active bleeding. Heart rate is controlled. vital signs Vital Sign Date Time Temp Pulse Resp B/P (MAP) Pulse Ox O2 Delivery O2 Flow Rate FiO2 06/04/24 05:00 97.8 87 18 119/77 (91) 97 97.8 06/03/24 20:00 Nasal Cannula* 4 36 Total Intake and Output 06/03/24 06/03/24 06/04/24 15:00 23:00 07:00 Intake Total 10 ml 225 ml 290 ml Output Total 350 ml 275 ml Balance 10 ml -125 ml 15 ml medications Current Medications Medications Dose Ordered Sig/Anish Route Start Time Stop Time Status Last Admin Dose Admin Nitroglycerin 0.4 mg Q5MINP PRN SL 06/01/24 03:45 Morphine Sulfate 2 mg Q30M PRN IV 06/01/24 03:45 Acetaminophen 650 mg Q6HP PRN PO 06/01/24 03:45 Diagnostic Test (Pha) 1 strip Q6HR 06/01/24 06:00 06/04/24 05:55 1 STRIP Insulin Human Regular Q6HR SC 06/01/24 06:00 06/04/24 05:55 4 UNITS Dextrose 50 ml UD PRN IV 06/01/24 03:45 Mycophenolate Mofetil 500 mg BID PO 06/01/24 10:00 06/03/24 22:59 500 MG Lorazepam 0.5 mg Q8HP PRN PO 06/01/24 04:00 06/01/24 06:17 0.5 MG Atorvastatin Calcium 20 mg HS PO 06/01/24 22:00 06/03/24 22:54 20 MG Finasteride 5 mg HS PO 06/01/24 22:00 06/03/24 22:00 5 MG Gabapentin 100 mg BID PO 06/01/24 10:00 06/03/24 22:52 100 MG Metoprolol Tartrate 25 mg Q12HR PO 06/01/24 10:00 06/03/24 22:53 25 MG Tamsulosin HCl 0.8 mg QPM PO 06/01/24 18:00 06/03/24 18:28 0.8 MG Patient Own Medication 0.5 mg Q72HR PO 06/01/24 04:00 Prednisone 2.5 mg TID PO 06/01/24 06:00 06/04/24 05:55 2.5 MG Patient Own Medication 2 tab HS PO 06/01/24 22:00 06/03/24 22:53 2 TAB Patient Own Medication 2 tab QAM@1000 PO 06/02/24 11:00 06/03/24 14:34 2 TAB Ertapenem 0.5 gm/ Sodium Chloride 50 ml @ 100 mls/hr DAILY IV 06/03/24 10:00 06/03/24 14:33 100 MLS/HR Pantoprazole Sodium 40 mg BID@0600,1700 PO 06/03/24 17:00 06/04/24 05:55 40 MG Amiodarone HCl 200 mg Q12HR PO 06/03/24 22:00 06/03/24 22:51 200 MG objective General: Awake, mildly confused lying in bed no distress HEENT: PERRL, no scleral icterus, normal hearing, gums without lesions or bleeding, oropharynx clear without erythema or exudate. Neck: Supple without enlargement of the thyroid, or lymphadenopathy. Chest: Decreased breath sounds bilaterally anterior Heart: Regular rate irregular rhythm Abdomen: non-distended, no tenderness to palpation, +BS, no hepatosplenomegaly Extremities: no edema, no cyanosis Neurological: CN II-XII intact, sensation intact in all extremities, 5+ strength in all extremities, no asterixis Skin: No rashes, No jaundice laboratory and microbiology Laboratory Tests 06/03/24 05:29 Test 06/03/24 05:29 Range/Units Serum Glucose 131 H 74-106 mg/dL Assessment/Plan Patient is a 78-year-old male presented to the hospital with: Hypotension resolved bacteremia : Staphylcoccus epidermidis UTI with hematuria infection: eSBL E coli Anemia R/o GI bleed Acute on chronic respiratory failure with hypoxia COPD exacerbation Hypotension requiring vasopressors CKD, HD catheter in place. Elevated troponin DM with hyperglycemia HX bladder cancer Hx left lung transplant Hx AFIB Recommendations: Bacteremia is likely contamination 1/2 with staph epidermidis Abx are switched to IV Ertapenem GI on board, plan for EGD tomorrow Nephro on board for HD monitor H and H urine is likely colonization, recommend 3 days of IV ertapenem 05/30, Blood culture preliminary showed staph epi 1/2 bottle 05/31, Blood culture preliminary showed no growth 05/31, Urine culture preliminary showed Approximately 40,000 CFU/mL ESBL e coli, likely colonization 05/30, Chest x-ray showed Right IJ approach hemodialysis catheter in satisfactory position. Pulmonary vascular congestion with right upper and lower lung zone atelectasis. Prognosis guarded Thank you for consult and for giving an opportunity to take care of this patient. Plan discussed with: Other MARTA ALBARRAN MD Jun 04, 2024 09:38
--- NOTE | 2024-06-04 10:21 | ECG ---
[facility] Test Date: 2024-05-31 Test Time: 06:37:18 Pat Name: GIANNI SCHWARTZ Department: ED Room: 0282T A Gender: M [employer] Supervisor: KANDACE : 1945 Requested By: SHIV KELLY Order Number: [id number] Reading MD: Nino Castañeda Measurements Intervals [place] Rate: 125 P: 101 AK: 123 QRS: -85 QRSD: 90 T: 72 QT: 319 QTc: 460 Interpretive Statements Sinus tachycardia with irregular rate LAD, consider left anterior fascicular block Anteroseptal infarct, old Artifact in lead(s) I,II,aVR,aVL,aVF,V1,V2 Electronically Signed On 06-05-2024 12:24:23 PST by Nino Castañeda Please click the below link to view image of tracing.
[2024-06-04 11:17] LABS: Chloride 104 mmol/L (98-107); Sodium 140 mmol/L (136-145)
[2024-06-04 11:18] LABS: Anion Gap 9 (5-15); Carbon Dioxide 27 mmol/L (20-31); Potassium 3.4 mmol/L (3.5-5.1)
[2024-06-04 11:19] LABS: Calcium 8.5 mg/dL (8.7-10.4)
[2024-06-04 11:23] LABS: BUN/Creatinine Ratio 11.2 (10.0-20.0)
--- NOTE | 2024-06-04 11:37 | DVHPN2 ---
Progress Note Date Seen: Jun 04, 2024 Resident Creating Document: NEELAM GRAHAM RESIDENT Medical Necessity Reason Pt with a Central, PICC or Fol: Yes The following are medically ne: Soto Catheter Reason for soto catheter: Strict I&O Subjective Review of Systems This is a 78-year-old male patient with PMHx COPD, hypertension, atrial fibrillation on Eliquis, acute on chronic kidney disease, history of lung transplantation, diabetes, bladder mass presented to the ER with a chief complaint of dark black stool. Patient reports black tarry stool for the past 2 weeks, but denies abdominal pain, hematemesis, hemoptysis. He is taking Eliquis starting August 2023 for atrial fibrillation. Patient seen and examined at bedside. Reports 4 X episode of loose watery stools since last night. No foul smelling. Appetite is fine. No abdominal pain. Ordered stool studies. Objective vital signs Vital Sign Date Time Temp Pulse Resp B/P (MAP) Pulse Ox O2 Delivery O2 Flow Rate FiO2 06/04/24 11:21 85 112/71 06/04/24 09:30 98.2 17 96 98.2 06/03/24 20:00 Nasal Cannula* 4 36 Total Intake and Output 06/03/24 06/03/24 06/04/24 15:00 23:00 07:00 Intake Total 10 ml 225 ml 290 ml Output Total 350 ml 275 ml Balance 10 ml -125 ml 15 ml medications Current Medications Medications Dose Ordered Sig/Anish Route Start Time Stop Time Status Last Admin Dose Admin Nitroglycerin 0.4 mg Q5MINP PRN SL 06/01/24 03:45 Morphine Sulfate 2 mg Q30M PRN IV 06/01/24 03:45 Acetaminophen 650 mg Q6HP PRN PO 06/01/24 03:45 Diagnostic Test (Pha) 1 strip Q6HR 06/01/24 06:00 06/04/24 05:55 1 STRIP Insulin Human Regular Q6HR SC 06/01/24 06:00 06/04/24 05:55 4 UNITS Dextrose 50 ml UD PRN IV 06/01/24 03:45 Mycophenolate Mofetil 500 mg BID PO 06/01/24 10:00 06/04/24 09:46 500 MG Lorazepam 0.5 mg Q8HP PRN PO 06/01/24 04:00 06/01/24 06:17 0.5 MG Atorvastatin Calcium 20 mg HS PO 06/01/24 22:00 06/03/24 22:54 20 MG Finasteride 5 mg HS PO 06/01/24 22:00 06/03/24 22:00 5 MG Gabapentin 100 mg BID PO 06/01/24 10:00 06/04/24 09:48 100 MG Metoprolol Tartrate 25 mg Q12HR PO 06/01/24 10:00 06/04/24 09:47 25 MG Tamsulosin HCl 0.8 mg QPM PO 06/01/24 18:00 06/03/24 18:28 0.8 MG Patient Own Medication 0.5 mg Q72HR PO 06/01/24 04:00 Prednisone 2.5 mg TID PO 06/01/24 06:00 06/04/24 05:55 2.5 MG Patient Own Medication 2 tab HS PO 06/01/24 22:00 06/03/24 22:53 2 TAB Patient Own Medication 2 tab QAM@1000 PO 06/02/24 11:00 06/04/24 09:49 2 TAB Ertapenem 0.5 gm/ Sodium Chloride 50 ml @ 100 mls/hr DAILY IV 06/03/24 10:00 06/04/24 10:50 100 MLS/HR Pantoprazole Sodium 40 mg BID@0600,1700 PO 06/03/24 17:00 06/04/24 05:55 40 MG Amiodarone HCl 200 mg Q12HR PO 06/03/24 22:00 06/04/24 09:46 200 MG Examination Patient lying in bed, in no acute distress General: Well-built, afebrile, palor, mucosae are moist Cardiovascular: Regular S1 and S2. No murmurs, gallops or rubs. No JVD elevation. No pedal edema Respiratory: Normal B/L air entry on room air. Clear lung sounds on auscultation Abdomen: Soft, nontender, nondistended, hyperactive bowel sounds, no rebound tenderness, no organomegaly, no masses. Rectal exam completed, rectal tone is intact, no hemorrhoids felt, tarry black stool noticed on fingertip. Genitourinary: Deferred MSK/skin: Mobilizes 4 limbs. Skin is dry and warm Neurological: No motor, no sensitive deficits, normal speech. Pupils are isocoric and reactive. Psych/Mental Status: A/Ox4 laboratory and microbiology Laboratory Tests 06/04/24 10:37 06/03/24 05:29 Test 06/04/24 10:37 Range/Units Serum Glucose Pending Microbiology Date/Time Source Procedure Growth Status 06/02/24 03:54 Nose MRSA Screen - Final Complete 05/31/24 11:56 Blood Blood Culture - Preliminary NO GROWTH AFTER 72 HOURS OF INCUBATION. Resulted 05/31/24 11:35 Voided Urine Urine Culture - Final Escherichia coli - ESBL Complete Labs and/or images reviewed: Labs reviewed by me, Image(s) reviewed by me Problem List/Assessment/Plan Problem List/Assessment/Plan Assessment: Anemia, likely microcytic due to GI losses Iron-deficiency anemia Antibiotic associated diarrhea ? 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 No esophageal varices. Minimal gastritis. last colonoscopy 3-4 years back at [facility] which was negative. Follow up with GI outpatient for biopsy results. Reactive hep C antibody. Patient will need hep C PCR as outpatient. Started Florastor p.o., Continue pantoprazole 40 mg daily p.o.. Follow up with stool studies Advanced diet as tolerated. Avoid anticoagulation/NSAIDs/aspirin Continue antibiotics per primary team Plan discussed with patient in which all questions have been answered Case discussed with Dr. Burns Plan discussed with: Patient My Orders My Orders Orders - NEELAM GRAHAM Procedure Category Date Status Time Florastor (S. PHA 06/04/24 Verified Boulardii) (Florastor) 11:30 Stool Bacterial JAC 06/04/24 Uncollected Culture 11:30 Stool Wbc LAB 06/04/24 Verified 11:30 NEELAM GRAHAM Jun 04, 2024 11:37
[2024-06-04 11:39] LABS: Blood Urea Nitrogen 28 mg/dL (9-23); Glucose 232 mg/dL (74-106)
[2024-06-04] MEDS ORDERED: SACC250C PO (14:08)
[2024-06-04] MEDS ORDERED: MET25T PO (14:08)
[2024-06-04] MEDS ORDERED: AMIO200T33 PO (14:08)
--- NOTE | 2024-06-04 14:10 | DVHDS2 ---
Discharge Summary Date of Admission May 30, 2024 at 23:15 Date of Discharge: Jun 04, 2024 Admitting Diagnosis Altered level of sensorium Labs/Diagnostic Data: Laboratory Results Test 06/04/24 11:19 06/04/24 10:37 06/03/24 05:29 06/02/24 06:43 POC Glucose 240 mg/dl (70-106) Sodium Level 140 mmol/L (136-145) Potassium Level 3.4 mmol/L (3.5-5.1) Chloride Level 104 mmol/L (98-107) Carbon Dioxide Level 27 mmol/L (20-31) Anion Gap 9 (5-15) Blood Urea Nitrogen 28 mg/dL (9-23) Creatinine 2.50 mg/dL (0.700-1.30) Glomerular Filtration Rate Calc 26 mL/min (>90) BUN/Creatinine Ratio 11.2 (10.0-20.0) Serum Glucose 232 mg/dL (74-106) Calcium Level 8.5 mg/dL (8.7-10.4) White Blood Count 4.8 10^3/uL (4.4-10.8) Red Blood Count 4.01 10^6/uL (4.5-5.90) Hemoglobin 9.9 g/dL (13.5-17.5) Hematocrit 29.7 % (41.0-53.0) Mean Corpuscular Volume 73.9 fL (80.0-100.0) Mean Corpuscular Hemoglobin 24.6 pg (28.0-32.0) Mean Corpuscular Hemoglobin Concent 33.3 g/dL (32.0-36.0) Red Cell Distribution Width 27.6 % (11.8-14.3) Platelet Count 124 10^3/uL (140-450) Mean Platelet Volume 8.8 fL (6.9-10.8) Neutrophils (%) (Auto) 69.8 % (37.0-80.0) Lymphocytes (%) (Auto) 21.3 % (10.0-50.0) Monocytes (%) (Auto) 8.4 % (0.0-12.0) Eosinophils (%) (Auto) 0.2 % (0.0-7.0) Basophils (%) (Auto) 0.3 % (0.0-2.0) Neutrophils # (Auto) 3.3 10 ^3/uL (1.6-8.6) Lymphocytes # (Auto) 1.0 10 ^3/uL (0.4-5.4) Monocytes # (Auto) 0.4 10 ^3/uL (0-1.3) Eosinophils # (Auto) 0 10 ^3/uL (0-0.8) Basophils # (Auto) 0 10 ^3/uL (0-0.2) Nucleated Red Blood Cells 0.3 % Platelet Estimate Decreased Hypochromasia (manual) Slight Anisocytosis (manual) Moderate Microcytosis Moderate Target Cells Few Ovalocytes Few Dona Cells Few Schistocytes Few Magnesium Level 1.8 mg/dL (1.6-2.6) Total Bilirubin 0.4 mg/dL (0.2-1.0) Direct Bilirubin 0.2 mg/dL (<0.3) Aspartate Amino Transferase (AST) 19 U/L (13-40) Alanine Aminotransferase (ALT) 13 U/L (7-40) Alkaline Phosphatase 61 U/L (46-116) Total Protein 5.6 g/dL (5.7-8.2) Albumin 3.3 g/dL (3.2-4.8) Prothrombin Time 11.4 sec (9.3-11.8) Prothrombin Time INR 1.08 (0.9-1.15) Activated Partial Thromboplast Time 31.2 SEC (24.5-34.5) Tumor Marker Alpha Fetoprotein <1.8 ng/mL (0.0-8.4) Vitamin B12 Level 1219 pg/mL (211-911) Folic Acid 7.94 ng/mL (>5.38) Test 06/01/24 19:50 06/01/24 06:44 05/31/24 22:00 05/31/24 11:35 Hepatitis B Surface Antigen Negative (Negative) Hepatitis C Antibody Reactive (Negative) Stool Occult Blood Negative (Negative) Stool Occult Blood Sample #3 (Negative) Lactic Acid Level 0.8 mmol/L (0.4-2.0) Urine Color Light-yellow (Yellow) Urine Clarity Turbid (Clear) Urine pH 6.0 (5.0-9.0) Urine Specific Ewing 1.013 (1.001-1.035) Urine Protein 2+ (Negative) Urine Ketones Trace (Negative) Urine Blood 3+ /uL (Negative) Urine Nitrite Negative (Negative) Urine Bilirubin Negative (Negative) Urine Urobilinogen Normal mg/dL (Negative) Urine Leukocyte Esterase 3+ /uL (Negative) Urine RBC 35 /hpf (0 - 3) Urine WBC Clumps Present /hpf (None Seen) Urine Microscopic WBC 493 /HPF (0-3) Urine Squamous Epithelial Cells None seen /hpf (<5) Urine Bacteria Few /hpf (None Seen) Urine Glucose Normal mg/dL (Normal) Test 05/31/24 09:45 05/31/24 07:33 05/30/24 21:15 05/30/24 20:45 Troponin I High Sensitivity 43 ng/L (</=54) Large Platelets Few Giant Platelets Few D-Dimer, Quantitative 6.75 mg/L FEU (0.0-0.49) Iron Level 21 ug/dL (65-175) Total Iron Binding Capacity 169 ug/dL (250-425) Percent Iron Saturation 12.4 % (20-55) Urine Yeast (Budding) Moderate /hpf (None Seen) Influenza Type A Antigen Negative (Negative) Influenza Type B Antigen Negative (Negative) SARS-CoV-2 Antigen (Rapid) Negative (NEGATIVE) Other Laboratory Tests 06/04/24 10:37 06/03/24 05:29 Brief Hx & Hospital Course: Information in the HPI is limited due to the patient's current cognitive status. Attempted to contact patient Family Via telephone, however there's no answer. 78-year-old male with past medical history of COPD, CD, DM2, hypertension, AFIB, left lung transplant, Bladder mass Presents with complaints of hypoxia And black stool x 1 day. EMS reported when they encountered the patient patient's oxygen saturation was in the 75s And brought into the emergency department on 15 L nonrebreather. Additionally patient was found to be fever with the temperature 102 And hypotensive requiring vasopressors. Patient admitted for further evaluation and treatment. He is admitted to the ICU with amiodarone drip. Patient continued on oxygen. Patient received empiric antibiotics. Patient's blood cultures negative for growth. Urine culture growing ESBL E coli for which he was started on Invanz. Midline is arranged and home antibiotics for ESBL E coli being arranged. While in the hospital patient also noted to have anemia therefore he is evaluated by electrical controls assembler with the EGD. No active bleeding identified but gastritis noted. Patient continued on proton pump inhibitor Protonix. Patient's hemoglobin is stable post transfusion without any acute signs of bleeding. Patient's heart rate is controlled and he is transitioned to oral amiodarone and continued on his oral metoprolol. Patient continued on low-dose Eliquis for his AFib given no active GI bleeding. Risks of bleeding versus benefits supplementation or stroke discussed with the patient at length and decided to continue at present given stroke risk out with the bleeding risks at present. Patient is advised to continue other medications per his discharge med reconciliation list. Patient is evaluated by yellow pages space salesperson and recommended monitoring of his kidney function and consider dialysis outpatient basis as needed. This is also discussed with the patient. Patient's oxygenation is stable on his home baseline 2-3 L via nasal cannula. Overall his condition remained stable. Vital signs are stable. Therefore it is felt he could be safely discharged home. I have talked with the patient regarding his hospital diagnosis, treatment he received, discharge medications, discharge instructions and follow-up plan of care. He has verbalized understanding of these and agree with care plan as mentioned. Operations or Procedures Operative Report DATE OF OPERATION: 06/03/24 PROCEDURE: Upper Endoscopy with biopsy. PREOPERATIVE INDICATION: The patient is a 78 -year-old male undergoing endoscopy for anemia and GI bleed POSTOPERATIVE DIAGNOSES: 1. 2 cm sliding-type hiatal hernia with slightly irregular squamocolumnar junction no significant erosive esophagitis, there were no esophageal varices 2. Minimal gastritis otherwise normal examination up to the 2nd and 3rd part of the duodenum with good bile drainage and no fresh or old blood in the upper GI tract PROCEDURE PERFORMED BY: Darrel Burns GI NURSE: Som SCOPE: Olympus videoendoscope. ASA CLASS: 3. PREOPERATIVE MEDICATIONS: Dr. Bryce Christine PROCEDURE IN DETAIL: After obtaining an informed consent, the patient was placed on left lateral decubitus position. The patient was then sedated with the above medications. A bite block was placed between his teeth. The endoscope was then passed through the oropharynx, into the esophagus, and through the stomach and pylorus up to the second and third part of the duodenum. The endoscope was then withdrawn. And 3rd part of the duodenum and the duodenal bulb were normal. Duodenal biopsies were obtained. The pre-pyloric area antrum and body showed minimal gastritis. Gastric biopsies were obtained. On retroflexion the fundus cardia and angularis were normal. The endoscope was then withdrawn into the distal esophagus. Patient had a 2 cm sliding-type hiatal hernia with no significant esophagitis and there were no esophageal varices There was no fresh or old blood in the upper GI tract. Patient had good bile drainage The patient tolerated the procedure well without difficulty. COMPLICATIONS : None SPECIMENS: Duodenal biopsies Gastric biopsies DISPOSITION: Transfer back to the floor Stable PLAN: 1. Await for biopsy result 2. Will place pt on Protonix 40 mg p.o. daily 3. Resume GI soft diet advance as tolerated 4. Outpatient follow up with GI Services to discuss elective colonoscopy if not recently done DARREL BURNS MD Jun 03, 2024 14:11 DICTATED BY:DARREL BURNS MD DICTATED DATE/TIME:06/03/24 1411 Condition at Discharge: Stable Final Diagnosis/Problems List AFib with RVR, ESBL UTI, CKD IV, acute gastritis, anemia status post blood transfusion, status post EGD Discharge Disposition: Home with Health Services Discharge Instruct/Medications Diet: Consistent carbohydrate, Cardiac 2g Na,low cholest Activity: No Restrictions, As Tolerated Follow Up/Referral: Dr. Burns gastroenterology for EGD biopsy results and further management of anemia. Primary care physician next week and to remove midline after IV antibiotic use. Yarn Dyer Dr. Durand/dialysis as your scheduled. Medications: As prescribed and home medications per discharge medication list. New Medications: Amiodarone Hcl (Amiodarone Hcl) 200 Mg Tab 1 TAB PO DAILY, #30 TAB 1 Refill Yeast (S. Boulardii)(S. Cerevi (Florastor) 250 Mg Cap 250 MG PO DAILY, #14 CAP Continued Medications: Apixaban Base (Eliquis) 2.5 Mg Tab 2.5 MG PO BID for 30 Days, #60 TAB Atorvastatin Calcium (Atorvastatin Calcium) 20 Mg Tab 20 MG PO HS, TAB Calcium Citrate-Vitamin D (Calcitrate Plus D 315-200 mg-Unit) 1 Tab Tab 1 TAB PO BID, #90 TAB Entecavir Monohydrate (Entecavir) 0.5 Mg Tab 0.5 MG PO Q72HR, TAB Everolimus (Everolimus) 0.5 Mg Tab 4 TAB PO BIDAC, TAB Finasteride (Finasteride) 5 Mg Tab 5 MG PO HS for 30 Days, MG Gabapentin (Gabapentin) 100 Mg Cap 100 MG PO BID Hydrocodone-Acetaminophen (Hydrocodone Bitartrate/AC 5-325 mg) 1 Tab Tab 1 TAB PO Q8HPRN PRN, #14 TAB Insulin Detemir (Levemir Flextouch) 100 Unit/Ml Inj 20 UNIT SC HS, INJ Insulin Lispro (Humalog Kwikpen) 100 Unit/Ml Inj 5 UNIT SC AC, INJ Metoprolol Tartrate (Lopressor) 25 Mg Tb 25 MG PO Q12HR, #90 TAB (This prescription has been renewed) Multiple Vitamin (Multivitamins) Cap 1 CAP PO DAILY, #30 CAP 3 Refills Mycophenolate Mofetil (Mycophenolate Mofetil) 250 Mg Cap 500 MG PO BID, CAP Nateglinide (Nateglinide) 120 Mg Tab 120 MG PO TIDWM, TAB Prednisone (Prednisone) 2.5 Mg Tab 2.5 MG PO TID, TAB Tamsulosin Hcl (Tamsulosin Hcl) 0.4 Mg Cap 0.8 MG PO QPM for 30 Days, MG Discontinued Medications: Amlodipine Besylate (Amlodipine Besylate) 10 Mg Tab 10 MG PO DAILY, TAB Amoxicillin & Pot Clavulanate (Augmentin Tablet) 875 Mg Tb 875 MG PO BID for 10 Days, #20 TAB Cyclobenzaprine Hcl (Cyclobenzaprine Hcl) 5 Mg Tab 1 TAB PO TID, #30 TAB Hydrochlorothiazide (Hydrochlorothiazide) 12.5 Mg Cap 12.5 MG PO DAILY, CAP Losartan Potassium (Losartan Potassium) 50 Mg Tab 50 MG PO DAILY, MG Pantoprazole Sodium (Pantoprazole Sodium) 40 Mg Inj 40 MG PO DAILY, INJ Discharge Statement: "Patient was advised to return to the ER or call 911 if any headaches, dizziness, shortness of breath, chest pain, abdominal pain, bleeding, fevers, or worsening of medical condition. Patient was counseled about treatment plan, medications, possible side effects, patientverbalized understanding. All questions were answered to the best of my ability. This discharge took greater then 30 minutes in planning, reviewing documentation, counseling the patient, and discussing with other team members." ASSESSMENT ASSESSMENT Assessment AFib with RVR, ESBL UTI, CKD IV, acute gastritis, anemia status post blood transfusion, status post EGD HERRERA ENRIQUEZ MD Jun 04, 2024 14:10
--- NOTE | 2024-06-04 14:11 | DVHPN2 ---
Progress Note Date Seen: Jun 04, 2024 Medical Necessity Reason Pt with a Central, PICC or Fol: Yes The following are medically ne: Soto Catheter Reason for soto catheter: Strict I&O Objective vital signs Vital Sign Date Time Temp Pulse Resp B/P (MAP) Pulse Ox O2 Delivery O2 Flow Rate FiO2 06/04/24 12:30 98.3 70 17 124/77 (93) 96 98.3 06/04/24 08:00 Nasal Cannula* 3 32 Total Intake and Output 06/03/24 06/03/24 06/04/24 15:00 23:00 07:00 Intake Total 10 ml 225 ml 290 ml Output Total 350 ml 275 ml Balance 10 ml -125 ml 15 ml medications Current Medications Medications Dose Ordered Sig/Anish Route Start Time Stop Time Status Last Admin Dose Admin Nitroglycerin 0.4 mg Q5MINP PRN SL 06/01/24 03:45 Morphine Sulfate 2 mg Q30M PRN IV 06/01/24 03:45 Acetaminophen 650 mg Q6HP PRN PO 06/01/24 03:45 Diagnostic Test (Pha) 1 strip Q6HR 06/01/24 06:00 06/04/24 11:44 1 STRIP Insulin Human Regular Q6HR SC 06/01/24 06:00 06/04/24 11:44 4 UNITS Dextrose 50 ml UD PRN IV 06/01/24 03:45 Mycophenolate Mofetil 500 mg BID PO 06/01/24 10:00 06/04/24 09:46 500 MG Lorazepam 0.5 mg Q8HP PRN PO 06/01/24 04:00 06/01/24 06:17 0.5 MG Atorvastatin Calcium 20 mg HS PO 06/01/24 22:00 06/03/24 22:54 20 MG Finasteride 5 mg HS PO 06/01/24 22:00 06/03/24 22:00 5 MG Gabapentin 100 mg BID PO 06/01/24 10:00 06/04/24 09:48 100 MG Metoprolol Tartrate 25 mg Q12HR PO 06/01/24 10:00 06/04/24 09:47 25 MG Tamsulosin HCl 0.8 mg QPM PO 06/01/24 18:00 06/03/24 18:28 0.8 MG Patient Own Medication 0.5 mg Q72HR PO 06/01/24 04:00 Prednisone 2.5 mg TID PO 06/01/24 06:00 06/04/24 05:55 2.5 MG Patient Own Medication 2 tab HS PO 06/01/24 22:00 06/03/24 22:53 2 TAB Patient Own Medication 2 tab QAM@1000 PO 06/02/24 11:00 06/04/24 09:49 2 TAB Ertapenem 0.5 gm/ Sodium Chloride 50 ml @ 100 mls/hr DAILY IV 06/03/24 10:00 06/04/24 10:50 100 MLS/HR Pantoprazole Sodium 40 mg BID@0600,1700 PO 06/03/24 17:00 06/04/24 05:55 40 MG Amiodarone HCl 200 mg Q12HR PO 06/03/24 22:00 06/04/24 09:46 200 MG Saccharomyces Boulardii 250 mg BID PO 06/04/24 11:30 Examination: GENERAL:Abnormal, LUNGS:Abnormal laboratory and microbiology Laboratory Tests 06/04/24 10:37 06/03/24 05:29 Test 06/04/24 10:37 Range/Units Serum Glucose 232 #H 74-106 mg/dL Microbiology Date/Time Source Procedure Growth Status 06/02/24 03:54 Nose MRSA Screen - Final Complete 05/31/24 11:56 Blood Blood Culture - Preliminary NO GROWTH AFTER 72 HOURS OF INCUBATION. Resulted 05/31/24 11:35 Voided Urine Urine Culture - Final Escherichia coli - ESBL Complete Problem List/Assessment/Plan Problem List/Assessment/Plan Acute kidney injury superimposed Chronic Kidney Disease secondary hemodynamic mediated Acute on chronic respiratory failure Congestive heart failure exacerbation AFib with RVR Diabetes mellitus type 2 Iron deficiency anemia hypokalemia double lung transplant on everlimus Acute kidney injury patient review on previous hospitalizations was on HD due to DAX. cr has been stable over last several days will monitor uop and assess need for HD. explained to patient will consider 1-2 HD treatments per week as he has shown stable cr and possible signs of improvement went for EGD Avoid nephrotoxic medications Strict I&Os I agree with diuresis- rec daily diuretics outpatient. currently has no evidence of edema Iron replacement, electrolytes replacement GI consult continue transplant meds per home regime dc soto Plan discussed with: Patient ALEISHA SHAVER MD Jun 04, 2024 14:11
[2024-06-04] MEDS: FLORASTOR (S. BOULARDII) 250 MG CAP PO SCH (14:28)
--- NOTE | 2024-06-04 23:27 | DVHPN2 ---
Progress Note - Dictate Date Seen: Jun 04, 2024 Medical Necessity Reason Pt with a Central, PICC or Fol: Yes The following are medically ne: Soto Catheter Reason for soto catheter: Strict I&O Subjective Patient seen and examined at bedside. Remains on supplemental oxygen Overnight events reviewed. vital signs Vital Sign Date Time Temp Pulse Resp B/P (MAP) Pulse Ox O2 Delivery O2 Flow Rate FiO2 06/04/24 18:08 36.5 85 06/04/24 16:58 18 126/74 (91) 96 06/04/24 08:00 Nasal Cannula* 3 32 Total Intake and Output 06/03/24 06/03/24 06/04/24 15:00 23:00 07:00 Intake Total 10 ml 225 ml 290 ml Output Total 350 ml 275 ml Balance 10 ml -125 ml 15 ml objective Gen.: Patient lying in bed in no apparent distress. On supplemental oxygen. Head: Normocephalic, atraumatic. Eyes: EOMI/PERRLA. Ears: Normal hearing. Normal anatomy. Neck/trachea: Trachea midline, supple. Nose: Normal external anatomy. Mouth: Moist mucous membranes. Chest: Decreased air entry bilaterally. No wheezing or rhonchi. Cardiovascular: Positive S1, positive S2. Regular rate and rhythm. Abdomen: Positive bowel sounds in all 4 quadrants. Soft, non-tender, non- distended. : Deferred. Rectal: Deferred. Skin: Warm, dry. Intact. Extremities: 2+ radial pulses bilaterally. No lower extremity edema. Neuro: Awake, alert, oriented x3. No gross motor or sensory deficits. Cranial nerves II through XII intact. Gait not assessed. laboratory and microbiology Laboratory Tests 06/04/24 10:37 06/03/24 05:29 Test 06/04/24 10:37 Range/Units Serum Glucose 232 #H 74-106 mg/dL Assessment/Plan Impression: Acute on chronic hypoxic respiratory failure Acute exacerbation of COPD Anemia, rule out GI hemorrhage Hypotension on pressors Urinary tract infection with hematuria Chronic kidney disease, on hemodialysis Elevated troponin Bladder cancer s/p left lung transplant Atrial fibrillation Events: Remains on supplemental O2 On 3 liters/minute via nasal cannula Taper O2 as tolerated Incentive spirometry Continue antibiotics Continue steroids - prednisone On immunosuppressants due to lung transplant. Urine culture grew E.coli, ESBL. Blood cultures grew Staph epidermidis ID recs appreciated. Status post EGD GI recommendations appreciated Monitor hemoglobin Accu-Cheks, ISS. Protonix BID for GI prophylaxis Patient is stable for discharge from the pulmonary standpoint. Disposition per hospitalist. Rest of plan as noted below Plan: Supplemental oxygen Keep O2 saturation above 92%. Cardiology recommendations appreciated. Pressors if necessary for hemodynamic support Titrate to keep mean arterial pressure greater than 65 mmHg Monitor renal function Monitor electrolytes. Supplement as necessary Monitor ins and outs Nephrology recommendations appreciated On IV fluids at 100 mL an hour Bronchodilators PRN Continue antibiotics Follow up cultures ID recommendations appreciated. Continue steroids Accu-Cheks, insulin sliding scale Monitor hemoglobin Follow up GI recommendations DVT prophylaxis Prognosis: Poor given multiple comorbidities. Rest of plan per hospitalist and other consultants. A total of 51 minutes of clinical care time was spent reviewing the patient record, examining the patient, making a diagnostic and therapeutic plan, discussing this plan with the medical personnel, following up on diagnostic studies and following the patient for clinical stability excluding any and all procedures. At least 50% of this time was spent in direct, [id number] contact. Thank you for allowing me to participate in this patient's care. Further recommendations will depend on patient's clinical course. Please do not hesitate to contact me if you have any questions or concerns. This medical document was created using an electronic medical record system with [employer] dictation system. Although this document has been carefully reviewed, there may still be some phonetic and typographical errors. These areas are purely typographical due to imperfections of the software programs, and do not reflect any compromise in the patient's medical care. Plan discussed with: Patient, Other (REY Cortes) LIOR ALVAREZ MD Jun 04, 2024 23:27
== END 2024-06-04 20:20 | disposition home health service (06) | DRG 177 ==
LOC: EDBD 17:31 → EDUNIT# 17:31 → ER 17:31 → OVERFLOW 23:15 → UNDODISIN 05-31 13:25 → TELE 06-01 16:44 → TELE-WESTW 06-01 18:22
PROVIDERS: ADMIT Hospitalist; ATTEND Hospitalist
PROC: 30233N1 Transfusion of Nonautologous Red Blood Cells into Peripheral Vein, Percutaneous Approach (ICD-10-PCS; 2024-05-31)
PROC: 0DB68ZX Excision of Stomach, Via Natural or Artificial Opening Endoscopic, Diagnostic (ICD-10-PCS; 2024-06-03)
PROC: 05HC33Z Insertion of Infusion Device into Left Basilic Vein, Percutaneous Approach (ICD-10-PCS; 2024-06-03)
PROC: 0DB98ZX Excision of Duodenum, Via Natural or Artificial Opening Endoscopic, Diagnostic (ICD-10-PCS; principal; 2024-06-03 13:20)
DX: J15.69 Pneumonia due to other Gram-negative bacteria (principal); J96.20 Acute and chronic respiratory failure, unspecified whether with hypoxia or hypercapnia; R57.8 Other shock; N17.0 Acute kidney failure with tubular necrosis; J44.1 Chronic obstructive pulmonary disease with (acute) exacerbation; D84.821 Immunodeficiency due to drugs; R78.81 Bacteremia; Z16.12 Extended spectrum beta lactamase (ESBL) resistance; T86.812 Lung transplant infection; I48.20 Chronic atrial fibrillation, unspecified; I13.0 Hypertensive heart and chronic kidney disease with heart failure and stage 1 through stage 4 chronic kidney disease, or unspecified chronic kidney disease; N18.4 Chronic kidney disease, stage 4 (severe); N30.01 Acute cystitis with hematuria; J44.0 Chronic obstructive pulmonary disease with (acute) lower respiratory infection; K29.00 Acute gastritis without bleeding; J15.9 Unspecified bacterial pneumonia; Z20.822 Contact with and (suspected) exposure to COVID-19; C67.9 Malignant neoplasm of bladder, unspecified; D50.9 Iron deficiency anemia, unspecified; E11.22 Type 2 diabetes mellitus with diabetic chronic kidney disease; E11.65 Type 2 diabetes mellitus with hyperglycemia; I50.9 Heart failure, unspecified; B95.7 Other staphylococcus as the cause of diseases classified elsewhere; B96.20 Unspecified Escherichia coli [E. coli] as the cause of diseases classified elsewhere; E87.6 Hypokalemia; K44.9 Diaphragmatic hernia without obstruction or gangrene; J44.9 Chronic obstructive pulmonary disease, unspecified; Y83.8 Other surgical procedures as the cause of abnormal reaction of the patient, or of later complication, without mention of misadventure at the time of the procedure; Z79.01 Long term (current) use of anticoagulants; Z99.2 Dependence on renal dialysis; Z85.51 Personal history of malignant neoplasm of bladder; Z82.3 Family history of stroke; Z79.60 Long term (current) use of unspecified immunomodulators and immunosuppressants; Z83.3 Family history of diabetes mellitus; K74.60 Unspecified cirrhosis of liver
CPT/HCPCS: 36415; 71045; 76705; 80048; 80053; 80076; 81001; 82105; 82270; 82607; 82746; 82962; 83540; 83550; 83605; 83735; 84484; 85014; 85018; 85025; 85379; 85610; 85730; 86803; 86850; 86900; 86901; 86920; 87040; 87045; 87077; 87081; 87086; 87088; 87186; 87340; 87426; 87427; 87804; 93005; 94640; 96365; 96375; 99291; G0378; J1335; J1815; J2250; J2470; J2543; J2704; J7517

== ENCOUNTER 2024-10-07 15:07 | Emergency (ER) | payer MEDICARE, OTHER ==
[~2024-10-07] VITALS: Ht 177.8 cm; Wt 58.3 kg
[~2024-10-07 15:07] MED LIST changes: +AMIO200T33 PO; -AMLO1TAB23 PO; -AUG875T PO; -CYCL-837 PO; -HYDR12.59 PO; -LOSA-534 PO; -PANT1INJ3 PO; +SACC250C PO
--- NOTE | 2024-10-07 15:32 | ED.PDOC ---
History of Present Illness HPI Comments 79y M who presents to the ED for chief complaint of tube replacement. Pt states he has ESRD and has Errol catheter for dialysis which he states is plugged and not being to be used for his dialysis which he receives on , and . Pt states he last received dialysis last Saturday, 1 week prior. Pt daughter states pt started dialysis 6 months prior and states his Errol catheter has been replaced 4x since dialysis first started. Pt otherwsise denies any other symptoms at this time. Pt is noted to be on 02 of 2 L bogdan nc. Pt otherwise denies any other symptoms at this time. Time Seen by MD: 15:28 Primary Care Provider: LUIS ANTONIO Reviewed Notes: Medications, Allergies Allergies: Coded Allergies: No Known Drug Allergy (Verified Allergy, Unknown, 08/25/15) Home Meds Active Scripts Yeast (S. Boulardii)(S. Cerevi (Florastor) 250 Mg Cap, 250 MG PO DAILY, #14 CAP Prov:HERRERA ENRIQUEZ MD 06/04/24 Amiodarone Hcl (Amiodarone Hcl) 200 Mg Tab, 1 TAB PO DAILY, #30 TAB 1 Refill Prov:HERRERA ENRIQUEZ MD 06/04/24 Metoprolol Tartrate (Lopressor) 25 Mg Tb, 25 MG PO Q12HR, #90 TAB Prov:HERRERA ENRIQUEZ MD 06/04/24 Apixaban Base (ELIQUIS) 2.5 Mg Tab, 2.5 MG PO BID for 30 Days, #60 TAB Prov:SANDY HEWITT MD 03/14/24 Hydrocodone-Acetaminophen (Hydrocodone Bitartrate/AC 5-325 mg) 1 Tab Tab, 1 TAB PO Q8HPRN PRN, #14 TAB Prov:HERRERA ENRIQUEZ MD 03/09/24 Calcium Citrate-Vitamin D (Calcitrate Plus D 315-200 mg-Unit) 1 Tab Tab, 1 TAB PO BID, #90 TAB Prov:HERRERA ENRIQUEZ MD 03/09/24 Reported Medications Nateglinide (Nateglinide) 120 Mg Tab, 120 MG PO TIDWM, TAB 03/13/24 Insulin Lispro (Humalog Kwikpen) 100 Unit/Ml Inj, 5 UNIT SC AC, INJ 03/13/24 Everolimus (Everolimus) 0.5 Mg Tab, 4 TAB PO BIDAC, TAB 03/13/24 Prednisone (Prednisone) 2.5 Mg Tab, 2.5 MG PO TID, TAB 03/13/24 Mycophenolate Mofetil (Mycophenolate Mofetil) 250 Mg Cap, 500 MG PO BID, CAP 03/13/24 Tamsulosin Hcl (Tamsulosin Hcl) 0.4 Mg Cap, 0.8 MG PO QPM for 30 Days, MG 12/31/16 Multiple Vitamin (Multivitamins) Cap, 1 CAP PO DAILY, #30 CAP 3 Refills 12/31/16 Insulin Detemir (Levemir Flextouch) 100 Unit/Ml Inj, 20 UNIT SC HS, INJ 12/31/16 Gabapentin (Gabapentin) 100 Mg Cap, 100 MG PO BID 12/31/16 Finasteride (Finasteride) 5 Mg Tab, 5 MG PO HS for 30 Days, MG 12/31/16 Entecavir Monohydrate (Entecavir) 0.5 Mg Tab, 0.5 MG PO Q72HR, TAB 12/31/16 Atorvastatin Calcium (ATORVASTATIN CALCIUM) 20 Mg Tab, 20 MG PO HS, TAB 12/31/16 Information Source: Patient, Relative Mode of Arrival: Wheelchair Severity: Moderate Timing: Hours Duration: Since onset Prehospital treatment: None Medication Refill: For: Other (tube replacment) Past Medical History PAST MEDICAL HISTORY: AFIB, COPD, DM, High Lipids, HTN, Liver Surgical History (Other): lung transplant, errol catheter, cataracts Family History Family History: Family hx of Cancer Social History Smoker: Non-Smoker, Quit Greater Than 1 Year Alcohol: Denies ETOH Use Drugs: Marijuana Lives In: Home Constitutional: denies: chills, diaphoresis, fatigue, fever, malaise, sweats, weakness, others EENTM: denies: blurred vision, double vision, ear bleeding, ear discharge, ear drainage, ear pain, ear ringing, eye pain, eye redness, hearing loss, mouth pain, mouth swelling, nasal discharge, nose bleeding, nose congestion, nose pain, photophobia, tearing, throat pain, throat swelling, voice changes, others Respiratory: denies: cough, hemoptysis, orthopnea, SOB at rest, shortness of breath, SOB with excertion, stridor, wheezing, others Cardiovascular: denies: chest pain, dizzy spells, diaphoresis, Dyspnea on exertion, edema, irregular heart beat, left arm pain, lightheadedness, palpitations, PND, syncope, others Gastrointestinal: denies: abdomen distended, abdominal pain, blood streaked bowels, constipated, diarrhea, dysphagia, difficulty swallowing, hematemesis, melena, nausea, poor appetite, poor fluid intake, rectal bleeding, rectal pain, vomiting, others Genitourinary: denies: burning, dysuria, flank pain, frequency, hematuria, incontinence, penile discharge, penile sore, pain, testicle pain, testicle swelling, urgency, others Neurological: denies: dizziness, fainting, headache, left sided numbness, left sided weakness, numbness, paresthesia, pre-existing deficit, right sided numbness, right sided weakness, seizure, speech problems, tingling, tremors, w eakness, others Musculoskeletal: denies: back pain, gout, joint pain, joint swelling, muscle pain, muscle stiffness, neck pain, others Integumetry: denies: bruises, change in color, change in hair/nails, dryness, laceration, lesions, lumps, rash, wounds, others Allergic/Immunocompromised: denies: Difficulty Healing, Frequent Infections, Hives, Itching, others Hematologic/Lymphatic: denies: anemia, blood clots, easy bleeding, easy bruising, swollen glands, others Endocrine: denies: excessive hunger, excessive sweating, excessive thirst, excessive urination, flushing, intolerance to cold, intolerance to heat, unexplained weight gain, unexplained weight loss, others Psychiatric: denies: anxiety, bipolar disorder, depression, hopeless, panic disorder, schizophrenia, sleepless, suicidal, others All Other Systems: Reviewed and Negative Physical Exam General Appearance: Cachectic, Moderate Distress HEENT: Normal ENT Inspection, Pharynx Normal, TMs Normal Neck: Full Range of Motion, Non-Tender, Normal, Normal Inspection Respiratory: Chest Non-Tender, Lungs Clear, No Accessory Muscle Use, No Respiratory Distress, Normal Breath Sounds Cardiovascular: No Edema, No JVD, No Murmur, No Gallop, Normal Peripheral Pulses, Regular Rate/Rhythm, Other (Errol catheter to the right chest) Breast Exam: Deferred Gastrointestinal: No Organomegaly, Non Tender, No Pulsatile Mass, Normal Bowel Sounds, Soft Genitalia: Deferred Pelvic: Deferred Rectal: Deferred Extremities: No calf tenderness, Normal capillary refill, Normal inspection, Normal range of motion, Non-tender, No pedal edema Musculoskeletal : Apperance: Normal Neurologic: slot tag inserter II-XII nml as Tested, Motor Weakness, Normal Affect, Normal Mood, No Sensory Deficits Cerebellar Function: Normal Reflexes: Normal Skin: Dry, Pallor, Warm Lymphatic: No Adenopathy Was a procedure done? Was a procedure done?: No EKG EKG : Pulse Rate (adult): 85 [place]: Normal Cardiac Rhythm: NSR Block: None Hypertrophy: LVH ST: Normal Differential Dx Considerations may include: catheter replacement, X-Ray, Labs, Meds, VS Vital Signs Date Time Temp Pulse Resp B/P (MAP) Pulse Ox O2 Delivery O2 Flow Rate FiO2 10/07/24 18:49 98.2 76 14 122/82 (95) 100 98.2 10/07/24 16:37 98.4 84 18 96/61 (73) 99 98.4 10/07/24 16:37 84 18 96 Room Air 10/07/24 15:32 85 10/07/24 15:27 85 10/07/24 15:12 98.4 94 20 99/71 (80) 93 98.4 Lab Test 10/07/24 15:56 Range/Units White Blood Count 2.9 L 4.4-10.8 10^3/uL Red Blood Count 4.87 4.5-5.90 10^6/uL Hemoglobin 10.0 L 13.5-17.5 g/dL Hematocrit 32.8 L 41.0-53.0 % Mean Corpuscular Volume 67.5 L 80.0-100.0 fL Mean Corpuscular Hemoglobin 20.5 L 28.0-32.0 pg Mean Corpuscular Hemoglobin Concent 30.3 L 32.0-36.0 g/dL Red Cell Distribution Width 18.7 H 11.8-14.3 % Platelet Count 140 140-450 10^3/uL Mean Platelet Volume 9.2 6.9-10.8 fL Neutrophils (%) (Auto) 69.6 37.0-80.0 % Lymphocytes (%) (Auto) 27.9 10.0-50.0 % Monocytes (%) (Auto) 1.1 0.0-12.0 % Eosinophils (%) (Auto) 0.9 0.0-7.0 % Basophils (%) (Auto) 0.5 0.0-2.0 % Neutrophils # (Auto) 2.0 1.6-8.6 10 ^3/uL Lymphocytes # (Auto) 0.8 0.4-5.4 10 ^3/uL Monocytes # (Auto) 0 0-1.3 10 ^3/uL Eosinophils # (Auto) 0 0-0.8 10 ^3/uL Basophils # (Auto) 0 0-0.2 10 ^3/uL Nucleated Red Blood Cells 0.0 % Prothrombin Time 11.3 9.3-11.8 sec Prothrombin Time INR 1.07 0.9-1.15 Activated Partial Thromboplast Time 30.1 24.5-34.5 SEC Sodium Level 134 L 136-145 mmol/L Potassium Level 4.6 3.5-5.1 mmol/L Chloride Level 102 98-107 mmol/L Carbon Dioxide Level 24 20-31 mmol/L Anion Gap 8 5-15 Blood Urea Nitrogen 38 H 9-23 mg/dL Creatinine 3.03 H 0.700-1.30 mg/dL Glomerular Filtration Rate Calc 20 >90 mL/min BUN/Creatinine Ratio 12.5 10.0-20.0 Serum Glucose 489 *H 74-106 mg/dL Calcium Level 9.2 8.7-10.4 mg/dL Current Medications Medications (Trade) Dose Ordered Sig/Anish Route Start Time Stop Time Status Last Admin Alteplase, Recombinant (Cathflo Activase 2MG) 4 mg ONCE ONCE IV 10/07/24 17:00 10/07/24 17:01 DC 10/07/24 18:46 EXAM: XR Chest, 1 View IMPRESSION: Right basilar atelectasis or pneumonia. IV Hep-Lock was established The patient did get Cathflo to both catheters The BUN is 38 the creatinine is 3.03 The patient is hyperglycemic at 489 The patient is being given 5 units of insulin The patient's hemoglobin hematocrit shows signs of anemia The patient's potassium is 4.6 At this time, the patient is being admitted to the hospitalist Images Reviewed?: Images reviewed and evaluated by me Time of 1ST Reevaluation: 16:00 Reevaluation 1ST: Unchanged Patient Education/Counseling: Diagnosis, Treatment, Prognosis Family Education/Counseling: No Family Present Departure 1 Departure Time of Disposition: 20:11 Impression: Primary Impression: Hemodialysis catheter malfunction Qualified Codes: T82.41XA - Breakdown (mechanical) of vascular dialysis catheter, initial encounter Additional Impression: ESRD needing dialysis Disposition: ADMITTED INPATIENT Admit to: Tele Condition: Fair Critical Care Note Critical Care Time?: Yes (35 min-critical care time only) Stability Stability form required: Yes Unstable for transfer: Telemetry monitoring (Telemetry monitoring required), ED Physician Assesment (Clinical assesment) Heart Score Heart Score: Heart Score Response (Comments) Value History N/A 0 EKG N/A 0 Age N/A 0 Risk Factors N/A 0 Troponin N/A 0 Total 0 I personally scribed for BARRY BENDER MD ([email or web address]) on 10/07/24 at 15:32. Electronically submitted by Brittney Will ([email or web address]). I personally scribed for BARRY BENDER MD ([email or web address]) on 10/07/24 at 16:49. Electronically submitted by Brittney Will ([email or web address]). BARRY BENDER MD Oct 07, 2024 15:32
[2024-10-07 16:21] LABS: Basophils # (auto) 0 10 ^3/uL (0-0.2); Eosinophils # (auto) 0 10 ^3/uL (0-0.8); Mean Corpuscular Volume 67.5 fL (80.0-100.0); White Blood Cell 2.9 10^3/uL (4.4-10.8)
[2024-10-07 16:23] LABS: Basophils % (auto) 0.5 % (0.0-2.0); Eosinophils % (auto) 0.9 % (0.0-7.0); Hematocrit 32.8 % (41.0-53.0); Lymphocytes # (auto) 0.8 10 ^3/uL (0.4-5.4); Lymphocytes % (auto) 27.9 % (10.0-50.0); Mean Corpuscular Hemoglobin 20.5 pg (28.0-32.0); Mean Corpuscular Hgb Conc. 30.3 g/dL (32.0-36.0); Monocytes # (auto) 0 10 ^3/uL (0-1.3); Monocytes % (auto) 1.1 % (0.0-12.0); Neutrophils % (auto) 69.6 % (37.0-80.0); Platelet Count (auto) 140 10^3/uL (140-450); Red Blood Cells 4.87 10^6/uL (4.5-5.90); Red Cell Distribution Width 18.7 % (11.8-14.3)
[2024-10-07 16:28] LABS: Chloride 102 mmol/L (98-107); Potassium 4.6 mmol/L (3.5-5.1)
[2024-10-07 16:29] LABS: Anion Gap 8 (5-15); Carbon Dioxide 24 mmol/L (20-31)
[2024-10-07 16:30] LABS: Calcium 9.2 mg/dL (8.7-10.4); Sodium 134 mmol/L (136-145)
[2024-10-07 16:35] LABS: BUN/Creatinine Ratio 12.5 (10.0-20.0)
[2024-10-07 16:38] LABS: Blood Urea Nitrogen 38 mg/dL (9-23)
[2024-10-07 16:39] LABS: Glucose 489 mg/dL (74-106)
--- NOTE | 2024-10-07 16:42 | DVH ---
EXAM: XR Chest, 1 View CLINICAL INDICATION: sob TECHNIQUE: Frontal view of the chest. COMPARISON: XY CHEST PORTABLE on DOS: 05/30/24, XY CHEST PORTABLE on DOS: 04/22/24, XY CHEST PORTABL E on DOS: 03/12/24, XY CHEST PORTABLE on DOS: 03/06/24, XY CHEST PORTABLE on DOS: 03/05/24 FINDINGS: LUNGS AND PLEURAL SPACES: Right basilar atelectasis or pneumonia. No pneumothorax. HEART: Unremarkable. No cardiomegaly. MEDIASTINUM: Unremarkable. Normal mediastinal contour. BONES/JOINTS: Unremarkable. No acute fracture. TUBES, LINES AND DEVICES: Right internal jugular central venous catheter tip in the superior vena c sultana. OTHER FINDINGS: . . IMPRESSION: Right basilar atelectasis or pneumonia.
[2024-10-07 16:53] LABS: INR 1.07 (0.9-1.15); Partial Thromboplastin Time 30.1 SEC (24.5-34.5)
[2024-10-07 16:57] LABS: Prothrombin Time 11.3 sec (9.3-11.8)
[2024-10-07] MEDS: CATHFLO ACTIVASE (ALTEPLASE) 2 MG VIAL IV ONE (18:46)
[2024-10-07 20:00] VITALS: PULSE 80; RESP 16; TEMP 98.4; O2SAT 100
[2024-10-07] MEDS: InsuLIN REG 1unit/0.01ml Soln (100units/ml) IV ONE (21:23)
--- NOTE | 2024-10-07 21:36 | DVHINCON2 ---
ANUJA ZURITA NP 10/07/242135: Date of service: Oct 07, [address] Monroy Reason for Consultation Medical management History of Present Illness 79-year-old male with past medical history of AFib, hypertension, hypercholesteremia, oxygen-dependent COPD, pneumonectomy, ESRD on HD (M, W, F) was seen in the emergency department with complaints of a malfunctioning hemodialysis catheter. Patient was sent into the emergency department per his principal quality engineer with concerns of an occluded hemodialysis catheter. While in the emergency department the catheter was treated with Cathflo Activase. Lab work demonstrated unremarkable CBC. Na 134, K4.6, BUN 36, creatinine 3.03, BG 489 with improvement to 369 after being treated with insulin. Chest x-ray impression red right base atelectasis versus pneumonia. At this time patient is at his baseline on 2 L nasal cannula with an oxygen saturation at 99%. Patient denies any fevers, chills, dizziness, chest pain, shortness of breath, palpitations, nausea, vomiting, leg swelling. Family History: Cerebrovascular accident (CVA) G8 FATHER Diabetes mellitus G8 MOTHER FHx: cancer G8 MOTHER Allergies: Coded Allergies: No Known Drug Allergy (Verified Allergy, Unknown, 08/25/15) Home Meds Active Scripts Yeast (S. Boulardii)(S. Cerevi (Florastor) 250 Mg Cap, 250 MG PO DAILY, #14 CAP Prov:HERRERA ENRIQUEZ MD 06/04/24 Amiodarone Hcl (Amiodarone Hcl) 200 Mg Tab, 1 TAB PO DAILY, #30 TAB 1 Refill Prov:HERRERA ENRIQUEZ MD 06/04/24 Metoprolol Tartrate (Lopressor) 25 Mg Tb, 25 MG PO Q12HR, #90 TAB Prov:HERRERA ENRIQUEZ MD 06/04/24 Apixaban Base (ELIQUIS) 2.5 Mg Tab, 2.5 MG PO BID for 30 Days, #60 TAB Prov:SANDY HEWITT MD 03/14/24 Hydrocodone-Acetaminophen (Hydrocodone Bitartrate/AC 5-325 mg) 1 Tab Tab, 1 TAB PO Q8HPRN PRN, #14 TAB Prov:HERRERA ENRIQUEZ MD 03/09/24 Calcium Citrate-Vitamin D (Calcitrate Plus D 315-200 mg-Unit) 1 Tab Tab, 1 TAB PO BID, #90 TAB Prov:HERRERA ENRIQUEZ MD 03/09/24 Reported Medications Nateglinide (Nateglinide) 120 Mg Tab, 120 MG PO TIDWM, TAB 03/13/24 Insulin Lispro (Humalog Kwikpen) 100 Unit/Ml Inj, 5 UNIT SC AC, INJ 03/13/24 Everolimus (Everolimus) 0.5 Mg Tab, 4 TAB PO BIDAC, TAB 03/13/24 Prednisone (Prednisone) 2.5 Mg Tab, 2.5 MG PO TID, TAB 03/13/24 Mycophenolate Mofetil (Mycophenolate Mofetil) 250 Mg Cap, 500 MG PO BID, CAP 03/13/24 Tamsulosin Hcl (Tamsulosin Hcl) 0.4 Mg Cap, 0.8 MG PO QPM for 30 Days, MG 12/31/16 Multiple Vitamin (Multivitamins) Cap, 1 CAP PO DAILY, #30 CAP 3 Refills 12/31/16 Insulin Detemir (Levemir Flextouch) 100 Unit/Ml Inj, 20 UNIT SC HS, INJ 12/31/16 Gabapentin (Gabapentin) 100 Mg Cap, 100 MG PO BID 12/31/16 Finasteride (Finasteride) 5 Mg Tab, 5 MG PO HS for 30 Days, MG 12/31/16 Entecavir Monohydrate (Entecavir) 0.5 Mg Tab, 0.5 MG PO Q72HR, TAB 12/31/16 Atorvastatin Calcium (ATORVASTATIN CALCIUM) 20 Mg Tab, 20 MG PO HS, TAB 12/31/16 Review of Systems Ten systems reviewed and negative except as per HPI Vital Signs Vital Signs Date Time Temp Pulse Resp B/P (MAP) Pulse Ox O2 Delivery O2 Flow Rate FiO2 10/07/24 18:49 98.2 76 14 122/82 (95) 100 98.2 10/07/24 16:37 Room Air Physical Exam GENERAL: Patient appearing stated age, in no acute distress. HEENT: Pupils equal and reactive to light and accommodation. Extraocular muscles intact. Mucous membranes moist. Conjunctivae pink. Anicteric sclerae. LUNGS: Bilateral air entry. No wheezes, rhonchi or rales. HEART: Regular rate and rhythm. Normal S1 and S2. ABDOMEN: BS normoactive, soft, nontender, and nondistended. No CVA tenderness. Right upper chest hemodialysis catheter. Dressing CDI EXTREMITIES: No clubbing, cyanosis, edema. No calf tenderness. Pedal pulses 2+. NEUROLOGICAL: The patient is alert and oriented times 3. CN II-XII intact. No focal deficits on gross sensory or motor examination. Labs/Diagnostic Data Labs Test 10/07/24 21:09 10/07/24 15:56 Range/Units POC Glucose 483 *H 70-106 mg/dl White Blood Count 2.9 L 4.4-10.8 10^3/uL Red Blood Count 4.87 4.5-5.90 10^6/uL Hemoglobin 10.0 L 13.5-17.5 g/dL Hematocrit 32.8 L 41.0-53.0 % Mean Corpuscular Volume 67.5 L 80.0-100.0 fL Mean Corpuscular Hemoglobin 20.5 L 28.0-32.0 pg Mean Corpuscular Hemoglobin Concent 30.3 L 32.0-36.0 g/dL Red Cell Distribution Width 18.7 H 11.8-14.3 % Platelet Count 140 140-450 10^3/uL Mean Platelet Volume 9.2 6.9-10.8 fL Neutrophils (%) (Auto) 69.6 37.0-80.0 % Lymphocytes (%) (Auto) 27.9 10.0-50.0 % Monocytes (%) (Auto) 1.1 0.0-12.0 % Eosinophils (%) (Auto) 0.9 0.0-7.0 % Basophils (%) (Auto) 0.5 0.0-2.0 % Neutrophils # (Auto) 2.0 1.6-8.6 10 ^3/uL Lymphocytes # (Auto) 0.8 0.4-5.4 10 ^3/uL Monocytes # (Auto) 0 0-1.3 10 ^3/uL Eosinophils # (Auto) 0 0-0.8 10 ^3/uL Basophils # (Auto) 0 0-0.2 10 ^3/uL Nucleated Red Blood Cells 0.0 % Prothrombin Time 11.3 9.3-11.8 sec Prothrombin Time INR 1.07 0.9-1.15 Activated Partial Thromboplast Time 30.1 24.5-34.5 SEC Sodium Level 134 L 136-145 mmol/L Potassium Level 4.6 3.5-5.1 mmol/L Chloride Level 102 98-107 mmol/L Carbon Dioxide Level 24 20-31 mmol/L Anion Gap 8 5-15 Blood Urea Nitrogen 38 H 9-23 mg/dL Creatinine 3.03 H 0.700-1.30 mg/dL Glomerular Filtration Rate Calc 20 >90 mL/min BUN/Creatinine Ratio 12.5 10.0-20.0 Serum Glucose 489 *H 74-106 mg/dL Calcium Level 9.2 8.7-10.4 mg/dL Assessment Malfunctioning hemodialysis catheter Missed hemodialysis DM with elevated blood glucose Patient was seen and evaluated ER bed 3. The patient's chart was reviewed in its entirety including laboratory work, imaging, vital signs, and current treatment. CBC was unremarkable. BMP: Na 134, K4.6, BUN 38, creatinine 3.03, BG elevated 489/369. Chest x-ray was interpreted per the radiologist and reviewed by myself. Impression read right lobe atelectasis versus pneumonia. Given there is no fever, elevated WBC count, or increased hypoxia I doubt pneumonia. Patient's current vital signs temperature 98.4, BP 163/76, HR 80, RR 18BPM, oxygen saturation 100% on 2 L nasal cannula. Patient does endorse using oxygen at home. Plan/Recommendation I consulted with the patient's principal quality engineer, Dr Durand. Patient vital signs, lab results, imaging, physical examination and current treatment was discussed in detail. At this time the patient hemodialysis catheter has been treated with Cathflo Activase. Considering that the patient is not hypoxic, not showing signs of fluid overload, K4.6, BUN 38, creatinine 3.03, we discussed managing the patient on outpatient basis. He is in agreement. He will contact his staff to establish dialysis chair time for the patient for the following day. However, if the hemodialysis catheter needs to be exchanged this will be done on outpatient basis. Patient to be discharged home after being treated for elevated blood glucose levels. O case management has been consulted to follow up on hemodialysis chair time for the following day. We will also schedule for outpatient exchange of the hemodialysis catheter if the current catheter continues to malfunction in the following days. The patient was provided with strict ER precautions including but not limited to confusion, dizziness, shortness of breath, chest pain, palpitations, abnormal bleeding, abnormal bruising, hematemesis, hematochezia, Melena, hematuria. If any of these occur please return to the nearest emergency department for further evaluation and treatment. I did attempt to contact the patient's daughter however she did not answer her cell phone. The plan of care was discussed with the patient and the staff registered nurse. Plan of care discuss in detail with supervising position who is in agreement. Plan discussed with: Patient SANDY HEWITT MD 10/08/24 1602: Family History: Cerebrovascular accident (CVA) G8 FATHER Diabetes mellitus G8 MOTHER FHx: cancer G8 MOTHER Allergies: Coded Allergies: No Known Drug Allergy (Verified Allergy, Unknown, 08/25/15) Home Meds Active Scripts Yeast (S. Boulardii)(S. Cerevi (Florastor) 250 Mg Cap, 250 MG PO DAILY, #14 CAP Prov:HERRERA ENRIQUEZ MD 06/04/24 Amiodarone Hcl (Amiodarone Hcl) 200 Mg Tab, 1 TAB PO DAILY, #30 TAB 1 Refill Prov:HERRERA ENRIQUEZ MD 06/04/24 Metoprolol Tartrate (Lopressor) 25 Mg Tb, 25 MG PO Q12HR, #90 TAB Prov:HERRERA ENRIQUEZ MD 06/04/24 Apixaban Base (ELIQUIS) 2.5 Mg Tab, 2.5 MG PO BID for 30 Days, #60 TAB Prov:SANDY HEWITT MD 03/14/24 Hydrocodone-Acetaminophen (Hydrocodone Bitartrate/AC 5-325 mg) 1 Tab Tab, 1 TAB PO Q8HPRN PRN, #14 TAB Prov:HERRERA ENRIQUEZ MD 03/09/24 Calcium Citrate-Vitamin D (Calcitrate Plus D 315-200 mg-Unit) 1 Tab Tab, 1 TAB PO BID, #90 TAB Prov:HERRERA ENRIQUEZ MD 03/09/24 Reported Medications Nateglinide (Nateglinide) 120 Mg Tab, 120 MG PO TIDWM, TAB 03/13/24 Insulin Lispro (Humalog Kwikpen) 100 Unit/Ml Inj, 5 UNIT SC AC, INJ 03/13/24 Everolimus (Everolimus) 0.5 Mg Tab, 4 TAB PO BIDAC, TAB 03/13/24 Prednisone (Prednisone) 2.5 Mg Tab, 2.5 MG PO TID, TAB 03/13/24 Mycophenolate Mofetil (Mycophenolate Mofetil) 250 Mg Cap, 500 MG PO BID, CAP 03/13/24 Tamsulosin Hcl (Tamsulosin Hcl) 0.4 Mg Cap, 0.8 MG PO QPM for 30 Days, MG 12/31/16 Multiple Vitamin (Multivitamins) Cap, 1 CAP PO DAILY, #30 CAP 3 Refills 12/31/16 Insulin Detemir (Levemir Flextouch) 100 Unit/Ml Inj, 20 UNIT SC HS, INJ 12/31/16 Gabapentin (Gabapentin) 100 Mg Cap, 100 MG PO BID 12/31/16 Finasteride (Finasteride) 5 Mg Tab, 5 MG PO HS for 30 Days, MG 12/31/16 Entecavir Monohydrate (Entecavir) 0.5 Mg Tab, 0.5 MG PO Q72HR, TAB 12/31/16 Atorvastatin Calcium (ATORVASTATIN CALCIUM) 20 Mg Tab, 20 MG PO HS, TAB 12/31/16 ANUJA ZURITA NP Oct 07, 2024 21:36 SANDY HEWITT MD Oct 08, 2024 16:02
[2024-10-07 22:13] LABS: Hypochromia Marked; Platelet Estimate Adequate
[2024-10-08 08:00] VITALS: BP 161/78; PULSE 15; RESP 15; O2SAT 99
--- NOTE | 2024-10-09 13:19 | ECG ---
[facility] Test Date: 2024-10-07 Test Time: 15:27:48 Pat Name: GIANNI SCHWARTZ Department: ER Room: Gender: M [employer]: ARRON : 1945 Requested By: BARRY BENDER Order Number: [id number] Reading MD: Nino Castañeda Measurements Intervals [place] Rate: 85 P: 49 NV: 174 QRS: -77 QRSD: 90 T: 73 QT: 396 QTc: 471 Interpretive Statements Sinus rhythm Left anterior fascicular block Consider left ventricular hypertrophy Anterior Q waves, possibly due to LVH ST elevation suggests acute pericarditis Electronically Signed On 10-09-2024 13:28:54 PDT by Nino Castañeda Please click the below link to view image of tracing.
== END 2024-10-08 11:04 | disposition home or self-care (01) ==
LOC: ER 15:11
DX: T82.41XA Breakdown (mechanical) of vascular dialysis catheter, initial encounter (principal); F19.90 Other psychoactive substance use, unspecified, uncomplicated; E11.65 Type 2 diabetes mellitus with hyperglycemia; E11.22 Type 2 diabetes mellitus with diabetic chronic kidney disease; E78.00 Pure hypercholesterolemia, unspecified; I12.0 Hypertensive chronic kidney disease with stage 5 chronic kidney disease or end stage renal disease; I48.91 Unspecified atrial fibrillation; J44.9 Chronic obstructive pulmonary disease, unspecified; Y92.89 Other specified places as the place of occurrence of the external cause; Z99.2 Dependence on renal dialysis; Z91.158 Patient's noncompliance with renal dialysis for other reason; Z87.891 Personal history of nicotine dependence; N18.6 End stage renal disease; Z79.01 Long term (current) use of anticoagulants; Z79.52 Long term (current) use of systemic steroids; Z79.624 Long term (current) use of inhibitors of nucleotide synthesis; Z79.899 Other long term (current) drug therapy; Z94.2 Lung transplant status; Z99.81 Dependence on supplemental oxygen
CPT/HCPCS: 36415; 71045; 80048; 82947; 85025; 85610; 85730; 93005; 96374; 96375; 99291; J1815; J2997; 82962

== ENCOUNTER 2025-01-19 10:43 | Inpatient (IN) | payer OTHER ==
[~2025-01-19] VITALS: Ht 175.3 cm; Wt 62.0 kg
[2025-01-19] MEDS: SODIUM CHLORIDE 0.9% 1,000 ML IV ONE ×2 (11:29→16:10)
--- NOTE | 2025-01-19 11:32 | ED.PDOC ---
History of Present Illness HPI Comments Son 79-year-old male with past medical history of diabetes, hypertension, AFib, dyslipidemia, CKD and lung transplant (on home oxygen, 2 L) brought in by EMS from home due to generalized weakness since 2 days. She also reports of nausea, and vomiting. He also reports of dysuria, frequency and incontinence for almost 1 month. He denies fever, headache, chest pain, shortness of breaths, or any bowel habit changes. Chief Complaint: General Weakness Time Seen by MD: 10:46 Primary Care Provider: ? 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 Boulardii)(S. Cerevi (Florastor) 250 Mg Cap, 250 MG PO DAILY, #14 CAP Prov:HERRERA ENRIQUEZ MD 06/04/24 Amiodarone Hcl (Amiodarone Hcl) 200 Mg Tab, 1 TAB PO DAILY, #30 TAB 1 Refill Prov:HERRERA ENRIQUEZ MD 06/04/24 Metoprolol Tartrate (Lopressor) 25 Mg Tb, 25 MG PO Q12HR, #90 TAB Prov:HERRERA ENRIQUEZ MD 06/04/24 Apixaban Base (ELIQUIS) 2.5 Mg Tab, 2.5 MG PO BID for 30 Days, #60 TAB Prov:SANDY HEWITT MD 03/14/24 Hydrocodone-Acetaminophen (Hydrocodone Bitartrate/AC 5-325 mg) 1 Tab Tab, 1 TAB PO Q8HPRN PRN, #14 TAB Prov:HERRERA ENRIQUEZ MD 03/09/24 Calcium Citrate-Vitamin D (Calcitrate Plus D 315-200 mg-Unit) 1 Tab Tab, 1 TAB PO BID, #90 TAB Prov:HERRERA ENRIQUEZ MD 03/09/24 Reported Medications Nateglinide (Nateglinide) 120 Mg Tab, 120 MG PO TIDWM, TAB 03/13/24 Insulin Lispro (Humalog Kwikpen) 100 Unit/Ml Inj, 5 UNIT SC AC, INJ 03/13/24 Everolimus (Everolimus) 0.5 Mg Tab, 4 TAB PO BIDAC, TAB 03/13/24 Prednisone (Prednisone) 2.5 Mg Tab, 2.5 MG PO TID, TAB 03/13/24 Mycophenolate Mofetil (Mycophenolate Mofetil) 250 Mg Cap, 500 MG PO BID, CAP 03/13/24 Tamsulosin Hcl (Tamsulosin Hcl) 0.4 Mg Cap, 0.8 MG PO QPM for 30 Days, MG 12/31/16 Multiple Vitamin (Multivitamins) Cap, 1 CAP PO DAILY, #30 CAP 3 Refills 12/31/16 Insulin Detemir (Levemir Flextouch) 100 Unit/Ml Inj, 20 UNIT SC HS, INJ 12/31/16 Gabapentin (Gabapentin) 100 Mg Cap, 100 MG PO BID 12/31/16 Finasteride (Finasteride) 5 Mg Tab, 5 MG PO HS for 30 Days, MG 12/31/16 Entecavir Monohydrate (Entecavir) 0.5 Mg Tab, 0.5 MG PO Q72HR, TAB 12/31/16 Atorvastatin Calcium (ATORVASTATIN CALCIUM) 20 Mg Tab, 20 MG PO HS, TAB 12/31/16 Mode of Arrival: EMS Past Medical History PAST MEDICAL HISTORY: AFIB, COPD, DM, High Lipids, HTN, Liver Past Medical History (Other): diabetes, hypertension, AFib, dyslipidemia, CKD and lung transplant Family History Family History: Family hx of Cancer Social History Smoker: Non-Smoker, Quit Greater Than 1 Year Alcohol: Denies ETOH Use Drugs: Marijuana Lives In: Home Constitutional: reports: fatigue, weakness; denies: chills, diaphoresis, fever, malaise, sweats, others EENTM: denies: blurred vision, double vision, ear bleeding, ear discharge, ear drainage, ear pain, ear ringing, eye pain, eye redness, hearing loss, mouth pain, mouth swelling, nasal discharge, nose bleeding, nose congestion, nose pain, photophobia, tearing, throat pain, throat swelling, voice changes, others Respiratory: denies: cough, hemoptysis, orthopnea, SOB at rest, shortness of breath, SOB with excertion, stridor, wheezing, others Cardiovascular: denies: chest pain, dizzy spells, diaphoresis, Dyspnea on exertion, edema, irregular heart beat, left arm pain, lightheadedness, palpitations, PND, syncope, others Gastrointestinal: reports: abdominal pain, nausea, vomiting; denies: abdomen distended, blood streaked bowels, constipated, diarrhea, dysphagia, difficulty swallowing, hematemesis, melena, poor appetite, poor fluid intake, rectal bleeding, rectal pain, others Genitourinary: reports: dysuria, urgency; denies: burning, flank pain, frequency, hematuria, incontinence, penile discharge, penile sore, pain, test icle pain, testicle swelling, others Neurological: denies: dizziness, fainting, headache, left sided numbness, left sided weakness, numbness, paresthesia, pre-existing deficit, right sided numbness, right sided weakness, seizure, speech problems, tingling, tremors, weakness, others Musculoskeletal: denies: back pain, gout, joint pain, joint swelling, muscle pain, muscle stiffness, neck pain, others Integumetry: denies: bruises, change in color, change in hair/nails, dryness, laceration, lesions, lumps, rash, wounds, others Allergic/Immunocompromised: denies: Difficulty Healing, Frequent Infections, Hives, Itching, others Hematologic/Lymphatic: denies: anemia, blood clots, easy bleeding, easy bruising, swollen glands, others Endocrine: denies: excessive hunger, excessive sweating, excessive thirst, excessive urination, flushing, intolerance to cold, intolerance to heat, unexplained weight gain, unexplained weight loss, others Psychiatric: denies: anxiety, bipolar disorder, depression, hopeless, panic disorder, schizophrenia, sleepless, suicidal, others Physical Exam General Appearance: No Apparent Distress, Normal HEENT: Normal ENT Inspection, Pharynx Normal, TMs Normal Neck: Full Range of Motion, Non-Tender, Normal, Normal Inspection Respiratory: Chest Non-Tender, Lungs Clear, No Accessory Muscle Use, No Respiratory Distress, Normal Breath Sounds Cardiovascular: No Edema, No JVD, No Murmur, No Gallop, Normal Peripheral Pulses, Regular Rate/Rhythm Breast Exam: Deferred Gastrointestinal: No Organomegaly, No Pulsatile Mass, Normal Bowel Sounds, Soft, Suprapubic, Tenderness Genitalia: Deferred Pelvic: Deferred Rectal: Deferred Extremities: No calf tenderness, Normal capillary refill, Normal inspection, Normal range of motion, Non-tender, No pedal edema Musculoskeletal : Apperance: Normal Neurologic: Alert, chief controller center II-XII nml as Tested, No Motor Deficits, Normal Affect, Normal Mood, No Sensory Deficits Cerebellar Function: Normal Reflexes: Normal Skin: Dry, Normal Color, Warm Lymphatic: No Adenopathy Was a procedure done? Was a procedure done?: No Differential Dx Considerations may include: Pyelonephritis, UTI X-Ray, Labs, Meds, VS Vital Signs Date Time Temp Pulse Resp B/P (MAP) Pulse Ox O2 Delivery O2 Flow Rate FiO2 01/19/25 12:52 98.8 107 18 135/82 (99) 98 98.8 01/19/25 12:52 107 18 98 Room Air* 0 21 01/19/25 11:17 99.2 92 18 136/86 96 99.2 Lab Test 01/19/25 13:46 01/19/25 11:26 01/19/25 11:04 Range/Units Lactic Acid Level 2.1 *H 2.1 *H 0.4-2.0 mmol/L White Blood Count 6.8 4.4-10.8 10^3/uL Red Blood Count 5.93 H 4.5-5.90 10^6/uL Hemoglobin 12.0 L 13.5-17.5 g/dL Hematocrit 38.8 L 41.0-53.0 % Mean Corpuscular Volume 65.5 L 80.0-100.0 fL Mean Corpuscular Hemoglobin 20.3 L 28.0-32.0 pg Mean Corpuscular Hemoglobin Concent 31.0 L 32.0-36.0 g/dL Red Cell Distribution Width 20.8 H 11.8-14.3 % Platelet Count 93 L 140-450 10^3/uL Mean Platelet Volume 8.7 6.9-10.8 fL Neutrophils (%) (Auto) 57.0 37.0-80.0 % Lymphocytes (%) (Auto) 29.1 10.0-50.0 % Monocytes (%) (Auto) 12.8 H 0.0-12.0 % Eosinophils (%) (Auto) 0.6 0.0-7.0 % Basophils (%) (Auto) 0.5 0.0-2.0 % Neutrophils # (Auto) 3.9 1.6-8.6 10 ^3/uL Lymphocytes # (Auto) 2.0 0.4-5.4 10 ^3/uL Monocytes # (Auto) 0.9 0-1.3 10 ^3/uL Eosinophils # (Auto) 0 0-0.8 10 ^3/uL Basophils # (Auto) 0 0-0.2 10 ^3/uL Nucleated Red Blood Cells 0.2 % Platelet Estimate Decreased Hypochromasia (manual) Moderate Anisocytosis (manual) Moderate Microcytosis Marked Schistocytes Few Sodium Level 137 136-145 mmol/L Potassium Level 4.6 3.5-5.1 mmol/L Chloride Level 100 98-107 mmol/L Carbon Dioxide Level 26 20-31 mmol/L Anion Gap 11 5-15 Blood Urea Nitrogen 21 9-23 mg/dL Creatinine 2.13 H 0.700-1.30 mg/dL Glomerular Filtration Rate Calc 31 >90 mL/min BUN/Creatinine Ratio 9.9 L 10.0-20.0 Serum Glucose 316 H 74-106 mg/dL Calcium Level 9.0 8.7-10.4 mg/dL Magnesium Level 1.8 1.6-2.6 mg/dL Total Bilirubin 1.0 0.2-1.0 mg/dL Aspartate Amino Transferase (AST) 14 13-40 U/L Alanine Aminotransferase (ALT) 18 7-40 U/L Alkaline Phosphatase 81 46-116 U/L Total Protein 7.3 5.7-8.2 g/dL Albumin 3.7 3.2-4.8 g/dL Urine Color Light-orange Yellow Urine Clarity Ex.turbid Clear Urine pH 6.5 5.0-9.0 Urine Specific [place] 1.015 1.001-1.035 Urine Protein 1+ H Negative Urine Ketones 1+ H Negative Urine Blood 3+ H Negative /uL Urine Nitrite Negative Negative Urine Bilirubin Negative Negative Urine Urobilinogen Normal Negative mg/dL Urine Leukocyte Esterase 3+ Negative /uL Urine RBC 25 0 - 3 /hpf Urine WBC Clumps Present None Seen /hpf Urine Microscopic WBC 616 H 0-3 /HPF Urine Squamous Epithelial Cells None seen <5 /hpf Urine Bacteria Few H None Seen /hpf Urine Mucus Few None Seen Urine Yeast (Budding) Moderate None Seen /hpf Urine Glucose 4+ H Normal mg/dL Urine Opiates Screen Neg NEGATIVE Urine Fentanyl Screen Neg NEGATIVE Urine Barbiturates Screen Neg NEGATIVE Urine Phencyclidine Screen Neg NEGATIVE Urine Amphetamines Screen Neg NEGATIVE Urine Benzodiazepines Screen Neg NEGATIVE Urine Cocaine Screen Neg NEGATIVE Urine Cannabinoids Screen Pos NEGATIVE Current Medications Medications (Trade) Dose Ordered Sig/Anish Route Start Time Stop Time Status Last Admin Sodium Chloride 1,000 ml @ 1,000 mls/hr Q1H ONCE IV 01/19/25 11:15 01/19/25 12:14 DC 01/19/25 11:29 Time of 1ST Reevaluation: 15:26 Reevaluation 1ST: Unchanged Patient Education/Counseling: Diagnosis, Treatment, Prognosis, Need For Follow Up Family Education/Counseling: No Family Present Comments Patient came to the hospital ET dysuria, and generalized weakness. CMP shows raised creatinine with hyperglycemia Urinalysis shows UTI picture. The patient was given IV fluid, and IV Rocephin. Urine culture ordered. The patient will be admitted for further workup and management. SEPSIS Sepsis Screen Date sepsis recognized/suspect: Jan 19, 2025 Time Sepsis recognized/suspect: 1100 Recent Procedure: No On Antibiotic Therapy: No Respiratory Rate >20: No Heart Rate >90: Yes Temp<36 C (96.8 F) or >38.3 C: No SBP <90 or MAP <65 mmHG: No New Acute Mental Status Change: No Is the patient on CPAP, BIPAP,: No Physician Orders Chest Xray 1 View (01/19/25 11:04) Urine Bacterial Culture (01/19/25 11:04) Electrocardigram (01/19/25 11:32) Vital Signs Date Time Temp Pulse Resp B/P (MAP) Pulse Ox O2 Delivery O2 Flow Rate FiO2 01/19/25 12:52 98.8 107 18 135/82 (99) 98 98.8 01/19/25 12:52 107 18 98 Room Air* 0 21 01/19/25 11:17 99.2 92 18 136/86 96 99.2 Laboratory Tests Test 01/19/25 11:26 01/19/25 13:46 Lactic Acid Level 2.1 mmol/L (0.4-2.0) *H 2.1 mmol/L (0.4-2.0) *H White Blood Count 6.8 10^3/uL (4.4-10.8) Medications Medications Dose Ordered Sig/Anish Route Start Time Stop Time Status Last Admin Dose Admin Sodium Chloride 1,000 ml @ 1,000 mls/hr Q1H ONCE IV 01/19/25 11:15 01/19/25 12:14 DC 01/19/25 11:29 Departure 1 Departure Time of Disposition: 15:28 Impression: Primary Impression: UTI (urinary tract infection) Additional Impression: Weakness Disposition: ADMITTED INPATIENT Admit to: Med Surg Condition: Guarded Discharged With: [employer] Critical Care Note Critical Care Time?: Yes (45 min-critical care time only) Stability Stability form required: No Heart Score Heart Score: Heart Score Response (Comments) Value History N/A 0 EKG N/A 0 Age N/A 0 Risk Factors N/A 0 Troponin N/A 0 Total 0 FANNY ERNANDEZ RESDOMITILA Jan 19, 2025 11:32
--- NOTE | 2025-01-19 11:38 | DVH ---
EXAM: XY CHEST XRAY 1 VIEW HISTORY: pnreumonmia COMPARISON: XY CHEST PORTABLE on DOS: 10/07/24, XY CHEST PORTABLE on DOS: 05/30/24, XY CHEST PORTABLE on DOS: 04/22/24, XY CHEST PORTABLE on DOS: 03/12/24, XY CHEST PORTABLE on DOS: 03/06/24 TECHNIQUE: Portable upright AP view of the chest was performed. FINDINGS: Right chest tunneled dialysis catheter is re-identified. There is emphysema and Scarring in the righ t lung. There is interstitial scarring in the left lung. No pneumothorax or new infiltrates. The hear t is not enlarged. There are postoperative changes of median sternotomy. The aortic arch is calcific. IMPRESSION: 1. No acute intrathoracic process. 2. Stable right lung emphysema and extensive scarring, and scarring throughout the left lung. 3. Postoperative changes of median sternotomy and right chest tunneled dialysis catheter.
[2025-01-19 11:46] LABS: Hemoglobin 12.0 g/dL (13.5-17.5)
[2025-01-19 11:48] LABS: Hematocrit 38.8 % (41.0-53.0); Mean Corpuscular Hemoglobin 20.3 pg (28.0-32.0); Mean Corpuscular Volume 65.5 fL (80.0-100.0); Nucleated Red Blood Cells % 0.2 %
[2025-01-19 11:58] LABS: Alanine Aminotransferase 18 U/L (7-40); Albumin 3.7 g/dL (3.2-4.8); Alkaline Phosphatase 81 U/L (46-116); Anion Gap 11 (5-15); BUN/Creatinine Ratio 9.9 (10.0-20.0); Blood Urea Nitrogen 21 mg/dL (9-23); Calcium 9.0 mg/dL (8.7-10.4); Carbon Dioxide 26 mmol/L (20-31); Chloride 100 mmol/L (98-107); Magnesium 1.8 mg/dL (1.6-2.6); Potassium 4.6 mmol/L (3.5-5.1); Sodium 137 mmol/L (136-145); Total Protein 7.3 g/dL (5.7-8.2)
[2025-01-19 11:59] LABS: Bilirubin, Total 1.0 mg/dL (0.2-1.0); Glucose 316 mg/dL (74-106)
[2025-01-19 12:04] LABS: Lactic Acid w/Reflex 2.1 mmol/L (0.4-2.0)
[2025-01-19 12:14] LABS: Anisocytosis Moderate
[2025-01-19 12:52] VITALS: PULSE 107; RESP 18; O2SAT 98
[2025-01-19 13:33] LABS: Urine Budding Yeast MODERATE /hpf (None Seen); Urine Protein, UAD 1+ (Negative); Urine WBC Clumps PRESENT /hpf (None Seen)
[2025-01-19 13:51] LABS: Cannabinoid Screen, Urine Pos (NEGATIVE)
[2025-01-19 13:57] LABS: Amphetamine Screen, Urine Neg (NEGATIVE); Barbiturate Scree,Urine Neg (NEGATIVE); Benzodiazephine Screen, Urine Neg (NEGATIVE); Cocaine Screen, Urine Neg (NEGATIVE); Opiate Scree,Urine Neg (NEGATIVE); Phencyclidine Screen, Urine Neg (NEGATIVE)
[2025-01-19 22:23] VITALS: PULSE 114; RESP 20; O2SAT 98
[2025-01-19] MEDS ORDERED: MORPHINE SULFATE INJ 2 MG/ml SYRG IV PRN ×2 (22:30)
[2025-01-19] MEDS ORDERED: HYDROcodone-ACET 5/325MG TAB PO PRN (22:30)
[2025-01-19] MEDS ORDERED: ACETAMINOPHEN 325 MG TAB PO PRN (22:30)
[2025-01-19] MEDS ORDERED: IPRATROPIUM BROM 0.5 MG/2.5ML INH SOL NEB PRN (22:30)
[2025-01-19] MEDS ORDERED: ALBUTEROL SULF 2.5 MG/0.5ML(0.5%) NEB SOLN NEB PRN (22:30)
[2025-01-19] MEDS ORDERED: DEXTROSE (50%) 50ML SYRG IV PRN (22:30)
[2025-01-19] MEDS ORDERED: ONDANSETRON HCL 4 MG/2 ML VIAL IV PRN (22:30)
[2025-01-19] MEDS ORDERED: NITROGLYCERIN 0.4 MG SL TAB SL PRN (22:30)
[2025-01-19 23:02] VITALS: BP 127/90; PULSE 114; RESP 20; TEMP 98.4; O2SAT 98
[2025-01-19] MEDS: SODIUM CHLORIDE 0.9% 500 ML IV ONE (23:40)
[2025-01-20] VITALS (7 sets, daily range): BP systolic 122–134; BP diastolic 84–87; PULSE 88–116; RESP 16–18; TEMP 97.7–97.8; O2SAT 98–100
--- NOTE | 2025-01-20 02:13 | DVHHP2 ---
ANUJA ZURITA RESEARCH DEVELOPMENT MANAGER 01/20/25 0213: History of Present Illness Reason for Visit: Not feeling well History of Present Illness 79-year-old male with past medical history of DM, hemodialysis, left lung transplant presents with complaints overall just not feeling well. Information in HPI is limited due to the patient a poor historian. During the emergency department evaluation patient is found to be positive for UTI. Lactic acid levels were also 2.1/2.1. Patient did endorsed that he has missed dialysis due to not feeling well. Patient did contact shelter case manager RN to tell them he was not feeling well earlier in the day and blood pressure was high, and he had contacted paramedics. At this time there are no complaints fevers, chills, shortness of breath, chest pain, palpitations abdominal pain nausea, vomiting. Cardiovascular: AFIB, HTN Pulmonary: COPD Endocrine: Diabetes Smoke: No ALCOHOL: none Drugs: Marijuana Lives: with Family Review of Systems Constitutional: Yes: Weakness, Malaise; No: Fever, Chills, Sweats, Other Eyes: No: Pain, Vision change, Conjunctivae inflammation, Eyelid inflammation, Other, Redness ENT: No: Ear pain, Ear discharge, Nose pain, Nose discharge, Nose congestion, Mouth pain, Mouth swelling, Throat pain, Throat swelling, Other Respiratory: No: Cough, Dry, Shortness of breath, SOB with excertion, Wheezing, Hemoptysis, Pleuritic Pain, Sputum, Wheezing, Other Cardiovascular: No: Chest Pain, Palpitations, Orthopnea, Paroxysmal Noc. Dyspnea, Edema, Lt Headedness, Other Gastrointestinal: No: Nausea, Vomiting, Abdominal Pain, Diarrhea, Constipation, Melena, Hematochezia, Other Genitourinary: No Dysuria, No Frequency, No Incontinence, No Hematuria, No Retention, No Other Musculoskeletal: No: other, neck pain, shoulder pain, arm pain, back pain, hand pain, leg pain, foot pain Skin: No: Rash, Lesions, Jaundice, Bruising, Other Neurological: No: Weakness, Numbness, Incoordination, Change in speech, Confusion, Seizures, Other Allergies: Coded Allergies: No Known Drug Allergy (Verified Allergy, Unknown, 08/25/15) Medications Current Medications Medications Dose Ordered Sig/Anish Route Start Time Stop Time Status Last Admin Dose Admin Acetaminophen 650 mg Q6HP PRN PO 01/19/25 22:30 Acetaminophen/ Hydrocodone Bitart 1 tab Q4HP PRN PO 01/19/25 22:30 Ondansetron HCl 4 mg Q4HP PRN IV 01/19/25 22:30 Morphine Sulfate 2 mg Q4HPRN PRN IV 01/19/25 22:30 Nitroglycerin 0.4 mg Q5MINP PRN SL 01/19/25 22:30 Morphine Sulfate 2 mg Q30M PRN IV 01/19/25 22:30 Diagnostic Test (Pha) 1 strip ACHS 01/20/25 07:00 Insulin Human Regular ACHS SC 01/20/25 07:00 Dextrose 50 ml UD PRN IV 01/19/25 22:30 Ceftriaxone Sodium 50 ml @ 100 mls/hr Q24H IV 01/20/25 17:00 Albuterol 2.5 mg Q4HP PRN NEB 01/19/25 22:30 Ipratropium [place] 0.5 mg Q4HPRN PRN NEB 01/19/25 22:30 Amiodarone HCl 200 mg DAILY PO 01/20/25 10:00 Metoprolol Tartrate 25 mg BID PO 01/20/25 10:00 Tamsulosin HCl 0.4 mg DAILY PO 01/20/25 10:00 Patient Own Medication 2 mg BID PO 01/20/25 10:00 UNV Patient Own Medication 120 mg TIDWM PO 01/20/25 08:00 UNV Exam Vital Signs Vital Signs Date Time Temp Pulse Resp B/P (MAP) Pulse Ox O2 Delivery O2 Flow Rate FiO2 01/19/25 23:02 98.4 114 20 127/90 98 21 98.4 01/19/25 22:23 Room Air* 0 General Appearance: Alert, Oriented X3, mild distress HEENT: Atraumatic, PERRLA, EOMI Respiratory: Clear to auscultation, Normal air movement Cardiovascular: Normal S1, Normal S2 Abdominal: Normal bowel sounds, Soft Extremities: No edema Neuro: Normal speech Psych/Mental Status: Mental status NL, Mood NL Labs/Xrays Labs Test 01/19/25 23:12 01/19/25 11:26 01/19/25 11:04 Range/Units Lactic Acid Level 1.3 0.4-2.0 mmol/L White Blood Count 6.8 4.4-10.8 10^3/uL Red Blood Count 5.93 H 4.5-5.90 10^6/uL Hemoglobin 12.0 L 13.5-17.5 g/dL Hematocrit 38.8 L 41.0-53.0 % Mean Corpuscular Volume 65.5 L 80.0-100.0 fL Mean Corpuscular Hemoglobin 20.3 L 28.0-32.0 pg Mean Corpuscular Hemoglobin Concent 31.0 L 32.0-36.0 g/dL Red Cell Distribution Width 20.8 H 11.8-14.3 % Platelet Count 93 L 140-450 10^3/uL Mean Platelet Volume 8.7 6.9-10.8 fL Neutrophils (%) (Auto) 57.0 37.0-80.0 % Lymphocytes (%) (Auto) 29.1 10.0-50.0 % Monocytes (%) (Auto) 12.8 H 0.0-12.0 % Eosinophils (%) (Auto) 0.6 0.0-7.0 % Basophils (%) (Auto) 0.5 0.0-2.0 % Neutrophils # (Auto) 3.9 1.6-8.6 10 ^3/uL Lymphocytes # (Auto) 2.0 0.4-5.4 10 ^3/uL Monocytes # (Auto) 0.9 0-1.3 10 ^3/uL Eosinophils # (Auto) 0 0-0.8 10 ^3/uL Basophils # (Auto) 0 0-0.2 10 ^3/uL Nucleated Red Blood Cells 0.2 % Platelet Estimate Decreased Hypochromasia (manual) Moderate Anisocytosis (manual) Moderate Microcytosis Marked Schistocytes Few Sodium Level 137 136-145 mmol/L Potassium Level 4.6 3.5-5.1 mmol/L Chloride Level 100 98-107 mmol/L Carbon Dioxide Level 26 20-31 mmol/L Anion Gap 11 5-15 Blood Urea Nitrogen 21 9-23 mg/dL Creatinine 2.13 H 0.700-1.30 mg/dL Glomerular Filtration Rate Calc 31 >90 mL/min BUN/Creatinine Ratio 9.9 L 10.0-20.0 Serum Glucose 316 H 74-106 mg/dL Calcium Level 9.0 8.7-10.4 mg/dL Magnesium Level 1.8 1.6-2.6 mg/dL Total Bilirubin 1.0 0.2-1.0 mg/dL Aspartate Amino Transferase (AST) 14 13-40 U/L Alanine Aminotransferase (ALT) 18 7-40 U/L Alkaline Phosphatase 81 46-116 U/L Total Protein 7.3 5.7-8.2 g/dL Albumin 3.7 3.2-4.8 g/dL Urine Color Light-orange Yellow Urine Clarity Ex.turbid Clear Urine pH 6.5 5.0-9.0 Urine Specific [place] 1.015 1.001-1.035 Urine Protein 1+ H Negative Urine Ketones 1+ H Negative Urine Blood 3+ H Negative /uL Urine Nitrite Negative Negative Urine Bilirubin Negative Negative Urine Urobilinogen Normal Negative mg/dL Urine Leukocyte Esterase 3+ Negative /uL Urine RBC 25 0 - 3 /hpf Urine WBC Clumps Present None Seen /hpf Urine Microscopic WBC 616 H 0-3 /HPF Urine Squamous Epithelial Cells None seen <5 /hpf Urine Bacteria Few H None Seen /hpf Urine Mucus Few None Seen Urine Yeast (Budding) Moderate None Seen /hpf Urine Glucose 4+ H Normal mg/dL Urine Opiates Screen Neg NEGATIVE Urine Fentanyl Screen Neg NEGATIVE Urine Barbiturates Screen Neg NEGATIVE Urine Phencyclidine Screen Neg NEGATIVE Urine Amphetamines Screen Neg NEGATIVE Urine Benzodiazepines Screen Neg NEGATIVE Urine Cocaine Screen Neg NEGATIVE Urine Cannabinoids Screen Pos NEGATIVE SEPSIS Sepsis Screen Date sepsis recognized/suspect: Jan 19, 2025 Time Sepsis recognized/suspect: 2223 Recent Procedure: No On Antibiotic Therapy: No Respiratory Rate >20: No Heart Rate >90: No Temp<36 C (96.8 F) or >38.3 C: No SBP <90 or MAP <65 mmHG: No New Acute Mental Status Change: No Is the patient on CPAP, BIPAP,: No Physician Orders Admit (01/19/25 22:23) Code Status (01/19/25 22:23) Vital Signs .PER UNIT PROTOCOL (01/19/25 22:23) Review Orders With Adm. (01/19/25 22:23) Encourage Activity As Tolerate (01/19/25 22:23) Consistent Carb(Ccho)Diabetes (01/20/25 Breakfast) Oxygen By Face Mask (01/19/25 22:23) Acetaminophen Tablet (Tylenol Tablet) (01/19/25 22:30) Notify Md Of Changes From Base (01/19/25 22:23) Advance Directive (01/19/25 22:23) Basic Metabolic Panel (01/20/25 05:00) Basic Metabolic Panel (01/21/25 05:00) Basic Metabolic Panel (01/22/25 05:00) Basic Metabolic Panel (01/23/25 05:00) Complete Blood Count (01/20/25 05:00) Complete Blood Count (01/21/25 05:00) Complete Blood Count (01/22/25 05:00) Complete Blood Count (01/23/25 05:00) Complete Blood Count (01/24/25 05:00) Blood Culture (01/19/25 22:23) Patient Condition (01/19/25:) Allergies (01/19/25:) Hydrocodone-Acet 5/325mg Tab ([place] 5/32 (01/19/25 22:30) Ondansetron Hcl (Zofran) (01/19/25 22:30) Morphine Sulfate Injection (01/19/25 22:30) Nitroglycerin Sublingual (Ntrostat Subli (01/19/25 22:30) Morphine Sulfate Injection (01/19/25 22:30) Stat Ekg For Chest Pain (01/19/25:23) Notify Md Of Changes From Base (01/19/25:23) Account Resolution Expert For 24 Hours (01/19/25 22:23) Emergency Dysrhythmia Protocol (01/19/25 22:23) Rhythm Strips Once Every Shift (01/19/25 22:23) Oxygen By Nasal Cannula (01/19/25:23) Glucose Blood (Accu-Chek Comfort Curve T (01/20/25 07:00) Insulin R (Human) (Insulin R) (01/20/25 07:00) Dextrose 50% Syringe (01/19/25 22:30) Ceftriaxone 1gm/50ml (Rocephin) (01/20/25 17:00) *Dr. Ladarius Modi [facility] (01/19/25 22:23) Albuterol Medneb (Ventolin Medneb) (01/19/25 22:30) Ipratropium Medneb (Atrovent Medneb) (01/19/25 22:30) Amiodarone Tablet (Cordarone Tablet) (01/20/25 10:00) Metoprolol Tartrate Tablet (Lopressor Ta (01/20/25 10:00) Tamsulosin Hydrochloride (Flomax) (01/20/25 10:00) (Nf) Everolimus (01/20/25 10:00) (Nf) Nateglinide (01/20/25 08:00) Sodium Chloride 0.9% (01/19/25 23:00) Vital Signs Date Time Temp Pulse Resp B/P (MAP) Pulse Ox O2 Delivery O2 Flow Rate FiO2 01/19/25 23:02 98.4 114 20 127/90 98 21 98.4 01/19/25 22:23 114 20 98 Room Air* 0 21 01/19/25 21:00 98.4 114 15 127/90 (102) 100 98.4 01/19/25 18:45 108 18 119/65 (83) 98 Laboratory Tests Test 01/19/25 23:12 Lactic Acid Level 1.3 mmol/L (0.4-2.0) Medications Medications Dose Ordered Sig/Anish Route Start Time Stop Time Status Last Admin Dose Admin Ceftriaxone Sodium 50 ml @ 100 mls/hr ONCE ONCE IV 01/19/25 15:30 01/19/25 15:59 DC 01/19/25 16:10 100 MLS/HR Sodium Chloride 1,000 ml @ 1,000 mls/hr Q1H ONCE IV 01/19/25 15:30 01/19/25 16:29 DC 01/19/25 16:10 1,000 MLS/HR Assessment/Plan Assessment/Plan Acute UTI Lactic acidosis Missed HD DM Hx lung transplant Plan Admit to telemetry Nephrology consult for HD. Monitor BMP. Correct electrolytes as needed. Bronchodilators. As needed supplemental.oxygen to maintain O2 saturation greater than 92%. Urine cultures pending. Blood cultures pending. IV ABX Blood glucose tips with regular influence sliding scale coverage. Continue home medication GI ppx protonix / dvt ppx scd Plan discussed with: Patient My Orders Orders - ANUJA ZURITA RESEARCH DEVELOPMENT MANAGER Procedure Category Date Status Time Admit ADMIT 01/19/25 Transmitted 22:23 Code Status CODE 01/19/25 Transmitted 22:23 Vital Signs CHARBEL 01/19/25 In Process 22:23 Review Orders With CHARBEL 01/19/25 In Process Adm. 22:23 Encourage Activity As CHARBEL 01/19/25 In Process Tolerate 22:23 Consistent DIET 01/20/25 Transmitted Carb(Ccho)Diabetes Breakfast Oxygen By Face Mask RT 01/19/25 Transmitted 22:23 Acetaminophen Tablet PHA 01/19/25 In Process (Tylenol Tablet) 22:30 Notify Of Changes CHARBEL 01/19/25 In Process From Base 22:23 Advance Directive CHARBEL 01/19/25 In Process 22:23 Basic Metabolic Panel LAB 01/20/25 Logged 05:00 Basic Metabolic Panel LAB 01/21/25 Verified 05:00 Basic Metabolic Panel LAB 01/22/25 Verified 05:00 Basic Metabolic Panel LAB 01/23/25 Verified 05:00 Complete Blood Count LAB 01/20/25 Logged 05:00 Complete Blood Count LAB 01/21/25 Verified 05:00 Complete Blood Count LAB 01/22/25 Verified 05:00 Complete Blood Count LAB 01/23/25 Verified 05:00 Complete Blood Count LAB 01/24/25 Verified 05:00 Blood Culture JAC 01/19/25 In Process 22:23 Patient Condition ORDERS 01/19/25 Transmitted 22:23 Allergies CHARBLE 01/19/25 In Process 22:23 Hydrocodone-Acet PHA 01/19/25 In Process 5/325mg Tab ([place] 22:30 Ondansetron Hcl PHA 01/19/25 In Process (Zofran) 22:30 Morphine Sulfate PHA 01/19/25 In Process Injection 22:30 Nitroglycerin PHA 01/19/25 In Process Sublingual (Ntrostat 22:30 Morphine Sulfate PHA 01/19/25 In Process Injection 22:30 Stat Ekg For Chest CHARBEL 01/19/25 In Process Pain 22:23 Notify Md Of Changes [facility] 01/19/25 In Process From Base 22:23 Account Resolution Expert For [facility] 01/19/25 In Process 24 Hours 22:23 Emergency Dysrhythmia CHARBEL 01/19/25 In Process Protocol 22:23 Rhythm Strips Once CHARBEL 01/19/25 In Process Every Shift 22:23 Oxygen By Nasal RT 01/19/25 Transmitted Cannula 22:23 Glucose Blood PHA 01/20/25 In Process (Accu-Chek Comfort 07:00 Insulin R (Human) PHA 01/20/25 In Process (Insulin R) 07:00 Dextrose 50% Syringe PHA 01/19/25 In Process 22:30 Ceftriaxone 1gm/50ml PHA 01/20/25 In Process (Rocephin) 17:00 *Dr. [facility] CONS 01/19/25 Transmitted -[place] 22:23 Albuterol Medneb PHA 01/19/25 In Process (Ventolin Medneb) 22:30 Ipratropium Medneb PHA 01/19/25 In Process (Atrovent Medneb) 22:30 Amiodarone Tablet PHA 01/20/25 In Process (Cordarone Tablet) 10:00 Metoprolol Tartrate PHA 01/20/25 In Process Tablet (Lopressor Ta 10:00 Tamsulosin PHA 01/20/25 In Process Hydrochloride (Flomax) 10:00 (Nf) Everolimus PHA 01/20/25 Pending 10:00 (Nf) Nateglinide PHA 01/20/25 Pending 08:00 Sodium Chloride 0.9% PHA 01/19/25 In Process 23:00 Date of Service: Jan 20, 2025 Billing Provider: HERRERA ENRIQUEZ MD Common Visit Codes: NOT BILLABLE HERRERA ENRIQUEZ MD 01/20/25 1750: Review of Systems Allergies: Coded Allergies: No Known Drug Allergy (Verified Allergy, Unknown, 08/25/15) Additional Comments Additional Comments Additional Comments Patient's chart is reviewed. Patient is seen evaluated and admitted by nurse practitioner earlier today. I agree with her evaluation, documentation, assessment and care plan as outlined. ANUJA ZURITA NP Jan 20, 2025 02:13 HERRERA ENRIQUEZ MD Jan 20, 2025 17:50
[2025-01-20 06:47] LABS: Anion Gap 10 (5-15); Carbon Dioxide 27 mmol/L (20-31); Chloride 102 mmol/L (98-107); Mean Corpuscular Hemoglobin 20.5 pg (28.0-32.0); Potassium 4.1 mmol/L (3.5-5.1); Sodium 139 mmol/L (136-145)
[2025-01-20 06:49] LABS: Hematocrit 35.2 % (41.0-53.0); Hemoglobin 10.9 g/dL (13.5-17.5); Mean Corpuscular Volume 66.0 fL (80.0-100.0); Nucleated Red Blood Cells % 0.3 %
[2025-01-20 06:53] LABS: BUN/Creatinine Ratio 11.6 (10.0-20.0)
[2025-01-20 06:55] LABS: Blood Urea Nitrogen 25 mg/dL (9-23); Calcium 8.5 mg/dL (8.7-10.4); Glucose 205 mg/dL (74-106)
[2025-01-20] MEDS: ACCU-CHEK COMFORT CURVE STRIP VI SCH (07:01)
[2025-01-20] MEDS: InsuLIN REG 1unit/0.01ml Soln (100units/ml) SC SCH (07:04)
[2025-01-20] MEDS: METOPROLOL TARTRATE 25 MG TAB PO SCH (10:34)
[2025-01-20] MEDS: TAMSULOSIN HYDROCHLORIDE 0.4 MG CAP PO SCH (10:34)
[2025-01-20] MEDS: EVEROLIMUS 2 MG PO SCH (10:35)
[2025-01-20] MEDS: AMIODARONE HCL 200 MG TAB PO SCH (10:35)
[2025-01-20] MEDS ORDERED: VANCOMYCIN PER PHARMACY 0 MG IV SCH (17:45)
--- NOTE | 2025-01-20 17:59 | DVHINCON2 ---
Date of service: Jan 20, 2025 Reason for Consultation HD History of Present Illness [age] years old male with past medical history of lung transplant, diabetes, ESRD on dialysis, hypertension, AFib, dyslipidemia, presented with chief complaints of fever, nausea vomiting and not feeling well overall His last dialysis was on last Saturday Patient appears weak Past Medical History As per documentation Past Surgical History As per HPI Allergies: Coded Allergies: No Known Drug Allergy (Verified Allergy, Unknown, 08/25/15) Home Meds Active Scripts Yeast (S. Boulardii)(S. Cerevi (Florastor) 250 Mg Cap, 250 MG PO DAILY, #14 CAP Prov:HERRERA ENRIQUEZ MD 06/04/24 Amiodarone Hcl (Amiodarone Hcl) 200 Mg Tab, 1 TAB PO DAILY, #30 TAB 1 Refill Prov:HERRERA ENRIQUEZ MD 06/04/24 Metoprolol Tartrate (Lopressor) 25 Mg Tb, 25 MG PO Q12HR, #90 TAB Prov:HERRERA ENRIQUEZ MD 06/04/24 Apixaban Base (ELIQUIS) 2.5 Mg Tab, 2.5 MG PO BID for 30 Days, #60 TAB Prov:SANDY HEWITT MD 03/14/24 Hydrocodone-Acetaminophen (Hydrocodone Bitartrate/AC 5-325 mg) 1 Tab Tab, 1 TAB PO Q8HPRN PRN, #14 TAB Prov:HERRERA ENRIQUEZ MD 03/09/24 Calcium Citrate-Vitamin D (Calcitrate Plus D 315-200 mg-Unit) 1 Tab Tab, 1 TAB PO BID, #90 TAB Prov:HERRERA ENRIQUEZ MD 03/09/24 Reported Medications Nateglinide (Nateglinide) 120 Mg Tab, 120 MG PO TIDWM, TAB 03/13/24 Insulin Lispro (Humalog Kwikpen) 100 Unit/Ml Inj, 5 UNIT SC AC, INJ 03/13/24 Everolimus (Everolimus) 0.5 Mg Tab, 4 TAB PO BIDAC, TAB 03/13/24 Prednisone (Prednisone) 2.5 Mg Tab, 2.5 MG PO TID, TAB 03/13/24 Mycophenolate Mofetil (Mycophenolate Mofetil) 250 Mg Cap, 500 MG PO BID, CAP 03/13/24 Tamsulosin Hcl (Tamsulosin Hcl) 0.4 Mg Cap, 0.8 MG PO QPM for 30 Days, MG 12/31/16 Multiple Vitamin (Multivitamins) Cap, 1 CAP PO DAILY, #30 CAP 3 Refills 12/31/16 Insulin Detemir (Levemir Flextouch) 100 Unit/Ml Inj, 20 UNIT SC HS, INJ 12/31/16 Gabapentin (Gabapentin) 100 Mg Cap, 100 MG PO BID 12/31/16 Finasteride (Finasteride) 5 Mg Tab, 5 MG PO HS for 30 Days, MG 12/31/16 Entecavir Monohydrate (Entecavir) 0.5 Mg Tab, 0.5 MG PO Q72HR, TAB 12/31/16 Atorvastatin Calcium (ATORVASTATIN CALCIUM) 20 Mg Tab, 20 MG PO HS, TAB 12/31/16 Current Medications Current Medications Medications (Trade) Dose Ordered Sig/Anish Route PRN Reason Start Time Stop Time Status Last Admin Acetaminophen (Tylenol Tablet) 650 mg Q6HP PRN PO PAIN SCALE 1-3 OR TEMP>100.4 01/19/25 22:30 Acetaminophen/ Hydrocodone Bitart ([place] 5/325MG Tab) 1 tab Q4HP PRN PO MODERATE PAIN (4-6 PAIN SCALE) 01/19/25 22:30 Ondansetron HCl (Zofran) 4 mg Q4HP PRN IV NAUSEA / VOMITING 01/19/25 22:30 Morphine Sulfate 2 mg Q4HPRN PRN IV SEVERE PAIN (7-10 PAIN SCALE) 01/19/25 22:30 Nitroglycerin (Ntrostat Sublingual) 0.4 mg Q5MINP PRN SL FOR CHEST PAIN 01/19/25 22:30 Morphine Sulfate 2 mg Q30M PRN IV FOR CHEST PAIN 01/19/25 22:30 Diagnostic Test (Pha) (Accu-Chek Comfort Curve T) 1 strip ACHS 01/20/25 07:00 01/20/25 17:19 Insulin Human Regular (InsuLIN R) ACHS SC 01/20/25 07:00 01/20/25 17:21 Dextrose 50 ml UD PRN IV Blood Sugar LESS THAN 60 01/19/25 22:30 Ceftriaxone Sodium 50 ml @ 100 mls/hr Q24H IV 01/20/25 17:00 01/20/25 17:19 Albuterol (Ventolin Medneb) 2.5 mg Q4HP PRN NEB SHORTNESS OF BREATH 01/19/25 22:30 Ipratropium [place] (Atrovent Medneb) 0.5 mg Q4HPRN PRN NEB SHORTNESS OF BREATH 01/19/25 22:30 Amiodarone HCl (Cordarone Tablet) 200 mg DAILY PO 01/20/25 10:00 Metoprolol Tartrate (Lopressor Tablet) 25 mg BID PO 01/20/25 10:00 Tamsulosin HCl (Flomax) 0.4 mg DAILY PO 01/20/25 10:00 Patient Own Medication 2 mg BID PO 01/20/25 10:00 Patient Own Medication 120 mg TIDAC PO 01/20/25 08:00 Vancomycin HCl 0 ml @ 0 mls/hr UD IV 01/20/25 17:45 UNV Family History: Cerebrovascular accident (CVA) G8 FATHER Diabetes mellitus G8 MOTHER FHx: cancer G8 MOTHER Review of Systems As per HPI H&P Exam Vital Signs/I&O Vital Sign Date Time Temp Pulse Resp B/P (MAP) Pulse Ox O2 Delivery O2 Flow Rate FiO2 01/20/25 16:30 97.8 93 18 122/84 (97) 100 97.8 01/20/25 16:20 Nasal Cannula* 3 32 Labs/Diagnostic Data Labs/Diagnostic Data Laboratory Tests Test 01/20/25 17:07 01/20/25 06:18 01/20/25 04:15 01/19/25 23:12 Range/Units POC Glucose 229 H 70-106 mg/dl White Blood Count 4.8 # 4.4-10.8 10^3/uL Red Blood Count 5.33 4.5-5.90 10^6/uL Hemoglobin 10.9 L 13.5-17.5 g/dL Hematocrit 35.2 L 41.0-53.0 % Mean Corpuscular Volume 66.0 L 80.0-100.0 fL Mean Corpuscular Hemoglobin 20.5 L 28.0-32.0 pg Mean Corpuscular Hemoglobin Concent 31.1 L 32.0-36.0 g/dL Red Cell Distribution Width 20.9 H 11.8-14.3 % Platelet Count 71 L 140-450 10^3/uL Mean Platelet Volume 9.3 6.9-10.8 fL Neutrophils (%) (Auto) 56.2 37.0-80.0 % Lymphocytes (%) (Auto) 26.3 10.0-50.0 % Monocytes (%) (Auto) 15.7 H 0.0-12.0 % Eosinophils (%) (Auto) 1.5 0.0-7.0 % Basophils (%) (Auto) 0.3 0.0-2.0 % Neutrophils # (Auto) 2.7 1.6-8.6 10 ^3/uL Lymphocytes # (Auto) 1.3 0.4-5.4 10 ^3/uL Monocytes # (Auto) 0.8 0-1.3 10 ^3/uL Eosinophils # (Auto) 0.1 0-0.8 10 ^3/uL Basophils # (Auto) 0 0-0.2 10 ^3/uL Nucleated Red Blood Cells 0.3 % Sodium Level 139 136-145 mmol/L Potassium Level 4.1 3.5-5.1 mmol/L Chloride Level 102 98-107 mmol/L Carbon Dioxide Level 27 20-31 mmol/L Anion Gap 10 5-15 Blood Urea Nitrogen 25 H 9-23 mg/dL Creatinine 2.15 H 0.700-1.30 mg/dL Glomerular Filtration Rate Calc 30 >90 mL/min BUN/Creatinine Ratio 11.6 10.0-20.0 Serum Glucose 205 #H 74-106 mg/dL Calcium Level 8.5 L 8.7-10.4 mg/dL Stool Occult Blood Negative Negative Stool Occult Blood Sample #3 Negative Lactic Acid Level 1.3 0.4-2.0 mmol/L Test 01/19/25 13:46 01/19/25 11:26 01/19/25 11:04 Range/Units Lactic Acid Level 2.1 *H 2.1 *H 0.4-2.0 mmol/L White Blood Count 6.8 4.4-10.8 10^3/uL Red Blood Count 5.93 H 4.5-5.90 10^6/uL Hemoglobin 12.0 L 13.5-17.5 g/dL Hematocrit 38.8 L 41.0-53.0 % Mean Corpuscular Volume 65.5 L 80.0-100.0 fL Mean Corpuscular Hemoglobin 20.3 L 28.0-32.0 pg Mean Corpuscular Hemoglobin Concent 31.0 L 32.0-36.0 g/dL Red Cell Distribution Width 20.8 H 11.8-14.3 % Platelet Count 93 L 140-450 10^3/uL Mean Platelet Volume 8.7 6.9-10.8 fL Neutrophils (%) (Auto) 57.0 37.0-80.0 % Lymphocytes (%) (Auto) 29.1 10.0-50.0 % Monocytes (%) (Auto) 12.8 H 0.0-12.0 % Eosinophils (%) (Auto) 0.6 0.0-7.0 % Basophils (%) (Auto) 0.5 0.0-2.0 % Neutrophils # (Auto) 3.9 1.6-8.6 10 ^3/uL Lymphocytes # (Auto) 2.0 0.4-5.4 10 ^3/uL Monocytes # (Auto) 0.9 0-1.3 10 ^3/uL Eosinophils # (Auto) 0 0-0.8 10 ^3/uL Basophils # (Auto) 0 0-0.2 10 ^3/uL Nucleated Red Blood Cells 0.2 % Platelet Estimate Decreased Hypochromasia (manual) Moderate Anisocytosis (manual) Moderate Microcytosis Marked Schistocytes Few Sodium Level 137 136-145 mmol/L Potassium Level 4.6 3.5-5.1 mmol/L Chloride Level 100 98-107 mmol/L Carbon Dioxide Level 26 20-31 mmol/L Anion Gap 11 5-15 Blood Urea Nitrogen 21 9-23 mg/dL Creatinine 2.13 H 0.700-1.30 mg/dL Glomerular Filtration Rate Calc 31 >90 mL/min BUN/Creatinine Ratio 9.9 L 10.0-20.0 Serum Glucose 316 H 74-106 mg/dL Calcium Level 9.0 8.7-10.4 mg/dL Magnesium Level 1.8 1.6-2.6 mg/dL Total Bilirubin 1.0 0.2-1.0 mg/dL Aspartate Amino Transferase (AST) 14 13-40 U/L Alanine Aminotransferase (ALT) 18 7-40 U/L Alkaline Phosphatase 81 46-116 U/L Total Protein 7.3 5.7-8.2 g/dL Albumin 3.7 3.2-4.8 g/dL Urine Color Light-orange Yellow Urine Clarity Ex.turbid Clear Urine pH 6.5 5.0-9.0 Urine Specific [place] 1.015 1.001-1.035 Urine Protein 1+ H Negative Urine Ketones 1+ H Negative Urine Blood 3+ H Negative /uL Urine Nitrite Negative Negative Urine Bilirubin Negative Negative Urine Urobilinogen Normal Negative mg/dL Urine Leukocyte Esterase 3+ Negative /uL Urine RBC 25 0 - 3 /hpf Urine WBC Clumps Present None Seen /hpf Urine Microscopic WBC 616 H 0-3 /HPF Urine Squamous Epithelial Cells None seen <5 /hpf Urine Bacteria Few H None Seen /hpf Urine Mucus Few None Seen Urine Yeast (Budding) Moderate None Seen /hpf Urine Glucose 4+ H Normal mg/dL Urine Opiates Screen Neg NEGATIVE Urine Fentanyl Screen Neg NEGATIVE Urine Barbiturates Screen Neg NEGATIVE Urine Phencyclidine Screen Neg NEGATIVE Urine Amphetamines Screen Neg NEGATIVE Urine Benzodiazepines Screen Neg NEGATIVE Urine Cocaine Screen Neg NEGATIVE Urine Cannabinoids Screen Pos NEGATIVE Assessment ESRD on hemodialysis Status post lung transplant Fever, nausea vomitings---rule out line infection UTI Recommendations Dialysis will be tomorrow Antibiotics dialysis dosing Follow-up blood cultures rule out catheter associated infection We will follow closely Plan discussed with: Patient BRENDEN SINGH MD Jan 20, 2025 17:59
[2025-01-20] MEDS: VANCOMYCIN 1GM/250ML KIT 250 ML IV ONE (18:43)
--- NOTE | 2025-01-20 18:49 | DVH ---
INDICATION: bladder mass TECHNIQUE: Multiple real-time sonographic images of the kidneys and bladder were obtained. COMPARISON: US KIDNEY on DOS: 04/14/24, US KIDNEY on DOS: 03/12/24, US KIDNEY on DOS: 03/05/24 FINDINGS: RIGHT kidney measures 9.42 cm in length. There is a 2.5 x 2.4 x 1.9 cm anechoic cortical lesion right kidney likely a cyst No hydronephrosis. LEFT kidney measures 7.32 cm in length. There is a 2.8 x 1.6 x 1.5 cm anechoic cortical nodule in the left renal cortex. This is most likely a cortical cyst. No hydronephrosis. No large intraluminal masses are seen in the bladder. Prevoid bladder volume is 729 mL. Bladder wall measures 1.01 mm. Patient had no urge to void. IMPRESSION: 1. Bilateral renal cortical cysts. 2. No hydronephrosis. 3. No large intraluminal masses are seen in the bladder. 4. Patient had no urge to void.
[2025-01-21] VITALS (10 sets, daily range): BP systolic 102–118; BP diastolic 67–80; PULSE 70–105; RESP 17–18; TEMP 97.4–98.4; O2SAT 94–100
[2025-01-21 06:53] LABS: Chloride 103 mmol/L (98-107); Potassium 4.4 mmol/L (3.5-5.1); Sodium 139 mmol/L (136-145)
[2025-01-21 06:55] LABS: Anion Gap 10 (5-15); Carbon Dioxide 26 mmol/L (20-31)
[2025-01-21 06:57] LABS: Calcium 8.5 mg/dL (8.7-10.4)
[2025-01-21 07:00] LABS: BUN/Creatinine Ratio 10.7 (10.0-20.0)
[2025-01-21] MEDS: SODIUM CHL 0.9% 1000 ML BAG XX ONE (07:00)
[2025-01-21 07:02] LABS: Hemoglobin 10.5 g/dL (13.5-17.5)
[2025-01-21 07:04] LABS: Hematocrit 34.8 % (41.0-53.0); Mean Corpuscular Hemoglobin 20.3 pg (28.0-32.0); Mean Corpuscular Volume 67.3 fL (80.0-100.0); Nucleated Red Blood Cells % 0.1 %
[2025-01-21 07:10] LABS: Blood Urea Nitrogen 25 mg/dL (9-23); Glucose 126 mg/dL (74-106)
[2025-01-21] MEDS: ALBUMIN 25% 100 ML IV SCH (09:55)
--- NOTE | 2025-01-21 13:32 | DVHPN2 ---
Progress Note - Dictate Date Seen: Jan 21, 2025 Medical Necessity Reason Pt with a Central, PICC or Fol: No Subjective Patient underwent hemodialysis this morning. He says he feels better. His blood cultures 1/2 bottles growing coagulase-negative staph epi likely skin contamination vital signs Vital Sign Date Time Temp Pulse Resp B/P (MAP) Pulse Ox O2 Delivery O2 Flow Rate FiO2 01/21/25 12:54 97.4 95 17 116/80 (92) 100 97.4 01/21/25 10:00 Nasal Cannula 3.0 01/21/25 10:00 32 Total Intake and Output 01/20/25 01/20/25 01/21/25 15:00 23:00 07:00 Intake Total 240 ml 500 ml Output Total 200 ml Balance 240 ml 300 ml medications Current Medications Medications Dose Ordered Sig/Anish Route Start Time Stop Time Status Last Admin Dose Admin Acetaminophen 650 mg Q6HP PRN PO 01/19/25 22:30 Acetaminophen/ Hydrocodone Bitart 1 tab Q4HP PRN PO 01/19/25 22:30 Ondansetron HCl 4 mg Q4HP PRN IV 01/19/25 22:30 Morphine Sulfate 2 mg Q4HPRN PRN IV 01/19/25 22:30 Nitroglycerin 0.4 mg Q5MINP PRN SL 01/19/25 22:30 Morphine Sulfate 2 mg Q30M PRN IV 01/19/25 22:30 Diagnostic Test (Pha) 1 strip ACHS 01/20/25 07:00 01/21/25 11:05 1 STRIP Insulin Human Regular ACHS SC 01/20/25 07:00 01/21/25 06:08 2 UNITS Dextrose 50 ml UD PRN IV 01/19/25 22:30 Ceftriaxone Sodium 50 ml @ 100 mls/hr Q24H IV 01/20/25 17:00 01/20/25 17:19 100 MLS/HR Albuterol 2.5 mg Q4HP PRN NEB 01/19/25 22:30 Ipratropium [place] 0.5 mg Q4HPRN PRN NEB 01/19/25 22:30 Amiodarone HCl 200 mg DAILY PO 01/20/25 10:00 Metoprolol Tartrate 25 mg BID PO 01/20/25 10:00 Tamsulosin HCl 0.4 mg DAILY PO 01/20/25 10:00 Patient Own Medication 2 mg BID PO 01/20/25 10:00 Patient Own Medication 120 mg TIDAC PO 01/20/25 08:00 Vancomycin HCl 0 ml @ 0 mls/hr UD IV 01/20/25 17:45 objective Alert awake oriented x3. Heart regular rate and rhythm. Lungs without rales wheezes. Abdomen soft positive bowel sounds. Extremities no edema. Neurologic no deficits laboratory and microbiology Laboratory Tests 01/21/25 06:19 Test 01/21/25 06:19 Range/Units Serum Glucose 126 H 74-106 mg/dL Assessment/Plan Continue vancomycin antibiotic as he is on for now. Continue physical therapy. Social Service to arrange home PT and safety evaluation. If he remains stable consider discharge home tomorrow. Discussed with the patient at bedside regarding care plan. Problems(with codes): (1) [id number] kidney injury (2) ESRD needing dialysis (3) Weakness (4) UTI (urinary tract infection) Plan discussed with: Patient HERRERA ENRIQUEZ MD Jan 21, 2025 13:31
[2025-01-21] MEDS: VANCOMYCIN 500mg/100mL 100 ML IV ONE (13:58)
--- NOTE | 2025-01-21 14:44 | DVHPN2 ---
Progress Note Date Seen: Jan 21, 2025 Medical Necessity Reason Pt with a Central, PICC or Fol: No Subjective Review of Systems: RESPIRATORY:Abnormal Other Systems: Patient seen and examined by myself today in follow-up, O2 nasal cannula Patient examined hemodialysis, blood pressure stable Objective vital signs Vital Sign Date Time Temp Pulse Resp B/P (MAP) Pulse Ox O2 Delivery O2 Flow Rate FiO2 01/21/25 12:54 97.4 95 17 116/80 (92) 100 97.4 01/21/25 10:00 Nasal Cannula 3.0 01/21/25 10:00 32 Total Intake and Output 01/20/25 01/20/25 01/21/25 15:00 23:00 07:00 Intake Total 240 ml 500 ml Output Total 200 ml Balance 240 ml 300 ml medications Current Medications Medications Dose Ordered Sig/Anish Route Start Time Stop Time Status Last Admin Dose Admin Acetaminophen 650 mg Q6HP PRN PO 01/19/25 22:30 Acetaminophen/ Hydrocodone Bitart 1 tab Q4HP PRN PO 01/19/25 22:30 Ondansetron HCl 4 mg Q4HP PRN IV 01/19/25 22:30 Morphine Sulfate 2 mg Q4HPRN PRN IV 01/19/25 22:30 Nitroglycerin 0.4 mg Q5MINP PRN SL 01/19/25 22:30 Morphine Sulfate 2 mg Q30M PRN IV 01/19/25 22:30 Diagnostic Test (Pha) 1 strip ACHS 01/20/25 07:00 01/21/25 11:05 1 STRIP Insulin Human Regular ACHS SC 01/20/25 07:00 01/21/25 06:08 2 UNITS Dextrose 50 ml UD PRN IV 01/19/25 22:30 Ceftriaxone Sodium 50 ml @ 100 mls/hr Q24H IV 01/20/25 17:00 01/20/25 17:19 100 MLS/HR Albuterol 2.5 mg Q4HP PRN NEB 01/19/25 22:30 Ipratropium [place] 0.5 mg Q4HPRN PRN NEB 01/19/25 22:30 Amiodarone HCl 200 mg DAILY PO 01/20/25 10:00 Metoprolol Tartrate 25 mg BID PO 01/20/25 10:00 Tamsulosin HCl 0.4 mg DAILY PO 01/20/25 10:00 Patient Own Medication 2 mg BID PO 01/20/25 10:00 Patient Own Medication 120 mg TIDAC PO 01/20/25 08:00 Vancomycin HCl 0 ml @ 0 mls/hr UD IV 01/20/25 17:45 Examination: LUNGS:Normal, CVS:Normal, MSK:Normal laboratory and microbiology Laboratory Tests 01/21/25 06:19 Test 01/21/25 06:19 Range/Units Serum Glucose 126 H 74-106 mg/dL Microbiology Date/Time Source Procedure Growth Status 01/19/25 23:12 Blood Blood Culture - Preliminary Resulted 01/19/25 13:00 Voided Urine Urine Culture - Final Complete Problem List/Assessment/Plan Problem List/Assessment/Plan ESRD on hemodialysis Status post lung transplant Fever, nausea vomitings---rule out line infection UTI Anemia of chronic kidney disease Recommendations Continue with UF one to 2 L as tolerated Epogen 72668 subQ 3 times a week Strict I&Os Renal diet IV antibiotics Continue home medications We will continue to follow Plan discussed with: Patient SUDEEP GUILLEN MD Jan 21, 2025 14:43
[2025-01-22] VITALS (13 sets, daily range): BP systolic 108–141; BP diastolic 69–91; PULSE 79–95; RESP 12–19; TEMP 97.2–98.3; O2SAT 94–100
[2025-01-22 07:38] LABS: Nucleated Red Blood Cells % 0.2 %
[2025-01-22 07:42] LABS: Hematocrit 33.0 % (41.0-53.0); Hemoglobin 10.1 g/dL (13.5-17.5); Mean Corpuscular Hemoglobin 20.4 pg (28.0-32.0); Mean Corpuscular Volume 66.6 fL (80.0-100.0)
[2025-01-22 07:44] LABS: Anion Gap 8 (5-15); Carbon Dioxide 28 mmol/L (20-31); Chloride 103 mmol/L (98-107); Potassium 3.8 mmol/L (3.5-5.1); Sodium 139 mmol/L (136-145)
[2025-01-22 07:47] LABS: Calcium 8.3 mg/dL (8.7-10.4)
[2025-01-22 07:50] LABS: BUN/Creatinine Ratio 9.7 (10.0-20.0); Blood Urea Nitrogen 18 mg/dL (9-23)
[2025-01-22 07:52] LABS: Glucose 159 mg/dL (74-106)
[2025-01-22 08:28] LABS: Anisocytosis Slight
[2025-01-22] MEDS: VANCOMYCIN 500mg/100mL 100 ML IV ONE (10:55)
[2025-01-22] MEDS ORDERED: VANCOMYCIN 500mg/100mL 100 ML IV ONE (11:00)
--- NOTE | 2025-01-22 16:04 | DVHPN2 ---
Progress Note - Dictate Date Seen: Jan 22, 2025 Medical Necessity Reason Pt with a Central, PICC or Fol: No Subjective Patient's blood cultures 1/2 growing staph home in his organism. Patient is on vancomycin. No complaints. vital signs Vital Sign Date Time Temp Pulse Resp B/P (MAP) Pulse Ox O2 Delivery O2 Flow Rate FiO2 01/22/25 13:25 97.9 79 19 116/69 (85) 97 97.9 01/22/25 10:00 Nasal Cannula* 3 32 Total Intake and Output 01/21/25 01/21/25 01/22/25 15:00 23:00 07:00 Intake Total 100 ml 940 ml 600 ml Output Total 400 ml 300 ml Balance 100 ml 540 ml 300 ml medications Current Medications Medications Dose Ordered Sig/Anish Route Start Time Stop Time Status Last Admin Dose Admin Acetaminophen 650 mg Q6HP PRN PO 01/19/25 22:30 Acetaminophen/ Hydrocodone Bitart 1 tab Q4HP PRN PO 01/19/25 22:30 Ondansetron HCl 4 mg Q4HP PRN IV 01/19/25 22:30 Morphine Sulfate 2 mg Q4HPRN PRN IV 01/19/25 22:30 Nitroglycerin 0.4 mg Q5MINP PRN SL 01/19/25 22:30 Morphine Sulfate 2 mg Q30M PRN IV 01/19/25 22:30 Diagnostic Test (Pha) 1 strip ACHS 01/20/25 07:00 01/22/25 11:30 1 STRIP Insulin Human Regular ACHS SC 01/20/25 07:00 01/22/25 11:02 3 UNITS Dextrose 50 ml UD PRN IV 01/19/25 22:30 Ceftriaxone Sodium 50 ml @ 100 mls/hr Q24H IV 01/20/25 17:00 01/21/25 16:57 100 MLS/HR Albuterol 2.5 mg Q4HP PRN NEB 01/19/25 22:30 Ipratropium [place] 0.5 mg Q4HPRN PRN NEB 01/19/25 22:30 Amiodarone HCl 200 mg DAILY PO 01/20/25 10:00 Metoprolol Tartrate 25 mg BID PO 01/20/25 10:00 Tamsulosin HCl 0.4 mg DAILY PO 01/20/25 10:00 Patient Own Medication 2 mg BID PO 01/20/25 10:00 Patient Own Medication 120 mg TIDAC PO 01/20/25 08:00 Vancomycin HCl 0 ml @ 0 mls/hr UD IV 01/20/25 17:45 objective Alert awake oriented x3. Heart regular rate and rhythm. Lungs without rales wheezes. Abdomen soft positive bowel sounds. Extremities no edema. Neurologic no deficits laboratory and microbiology Laboratory Tests 01/22/25 06:52 Test 01/22/25 06:52 Range/Units Serum Glucose 159 H 74-106 mg/dL Assessment/Plan Continue vancomycin antibiotic as he is on for now. I will repeat blood cultures x2 today. If repeat blood cultures negative for growth we can transition to oral antibiotics versus continue vancomycin for another week with the hemodialysis. Otherwise he will be continued to remained stable consider discharge home tomorrow. Discussed with the patient. Problems(with codes): (1) End stage renal failure on dialysis (2) Weakness (3) ESRD needing dialysis (4) [id number] kidney injury (5) UTI (urinary tract infection) Plan discussed with: Patient HERRERA ENRIQUEZ MD Jan 22, 2025 16:04
--- NOTE | 2025-01-22 17:40 | DVHPN2 ---
Progress Note Date Seen: Jan 22, 2025 Medical Necessity Reason Pt with a Central, PICC or Fol: No Subjective Patient reports: No new complaints, Feels better (wants to go home ) Review of Systems: Deferred Objective vital signs Vital Sign Date Time Temp Pulse Resp B/P (MAP) Pulse Ox O2 Delivery O2 Flow Rate FiO2 01/22/25 17:05 98.3 80 12 123/85 (98) 100 98.3 01/22/25 10:00 Nasal Cannula* 3 32 Total Intake and Output 01/21/25 01/21/25 01/22/25 15:00 23:00 07:00 Intake Total 100 ml 940 ml 600 ml Output Total 400 ml 300 ml Balance 100 ml 540 ml 300 ml medications Current Medications Medications Dose Ordered Sig/Anish Route Start Time Stop Time Status Last Admin Dose Admin Acetaminophen 650 mg Q6HP PRN PO 01/19/25 22:30 Acetaminophen/ Hydrocodone Bitart 1 tab Q4HP PRN PO 01/19/25 22:30 Ondansetron HCl 4 mg Q4HP PRN IV 01/19/25 22:30 Morphine Sulfate 2 mg Q4HPRN PRN IV 01/19/25 22:30 Nitroglycerin 0.4 mg Q5MINP PRN SL 01/19/25 22:30 Morphine Sulfate 2 mg Q30M PRN IV 01/19/25 22:30 Diagnostic Test (Pha) 1 strip ACHS 01/20/25 07:00 01/22/25 16:52 1 STRIP Insulin Human Regular ACHS SC 01/20/25 07:00 01/22/25 16:55 4 UNITS Dextrose 50 ml UD PRN IV 01/19/25 22:30 Ceftriaxone Sodium 50 ml @ 100 mls/hr Q24H IV 01/20/25 17:00 01/22/25 16:52 100 MLS/HR Albuterol 2.5 mg Q4HP PRN NEB 01/19/25 22:30 Ipratropium [place] 0.5 mg Q4HPRN PRN NEB 01/19/25 22:30 Amiodarone HCl 200 mg DAILY PO 01/20/25 10:00 Metoprolol Tartrate 25 mg BID PO 01/20/25 10:00 Tamsulosin HCl 0.4 mg DAILY PO 01/20/25 10:00 Patient Own Medication 2 mg BID PO 01/20/25 10:00 Patient Own Medication 120 mg TIDAC PO 01/20/25 08:00 Vancomycin HCl 0 ml @ 0 mls/hr UD IV 01/20/25 17:45 Examination: GENERAL:Abnormal, NEURO:Abnormal laboratory and microbiology Laboratory Tests 01/22/25 06:52 Test 01/22/25 06:52 Range/Units Serum Glucose 159 H 74-106 mg/dL Microbiology Date/Time Source Procedure Growth Status 01/19/25 23:12 Blood Blood Culture - Final Staph hominis subsp homins Complete 01/19/25 13:00 Voided Urine Urine Culture - Final Complete Problem List/Assessment/Plan Problem List/Assessment/Plan ESRD on hemodialysis Status post lung transplant Fever, nausea vomitings---rule out line infection UTI Anemia of chronic kidney disease Recommendations Continue with UF one to 2 L as tolerated Epogen 16839 subQ 3 times a week Strict I&Os Renal diet IV antibiotics Continue home medications We will continue to follow Plan discussed with: Other My Orders My Orders Orders - BRENDEN SINGH MD Procedure Category Date Status Time Vancomycin,Random LAB 01/23/25 Verified 05:00 BRENDEN SINGH MD Jan 22, 2025 17:40
[2025-01-23] VITALS (9 sets, daily range): BP systolic 97–148; BP diastolic 63–100; PULSE 55–88; RESP 16–18; TEMP 97.5–98.6; O2SAT 95–100
[2025-01-23 07:46] LABS: Hemoglobin 9.8 g/dL (13.5-17.5)
[2025-01-23 07:50] LABS: Hematocrit 31.6 % (41.0-53.0); Mean Corpuscular Hemoglobin 20.2 pg (28.0-32.0); Mean Corpuscular Volume 65.0 fL (80.0-100.0); Nucleated Red Blood Cells % 0.3 %
[2025-01-23 08:08] LABS: Anion Gap 11 (5-15); Carbon Dioxide 28 mmol/L (20-31); Chloride 100 mmol/L (98-107); Potassium 4.1 mmol/L (3.5-5.1); Sodium 139 mmol/L (136-145)
[2025-01-23 08:16] LABS: Glucose 108 mg/dL (74-106)
[2025-01-23 08:29] LABS: Calcium 8.4 mg/dL (8.7-10.4)
[2025-01-23 09:24] LABS: BUN/Creatinine Ratio 11.2 (10.0-20.0); Blood Urea Nitrogen 22 mg/dL (9-23)
[2025-01-23] MEDS ORDERED: DOXY100C79 PO (13:30)
--- NOTE | 2025-01-23 14:32 | DVHDS2 ---
Discharge Summary Date of Admission Jan 19, 2025 at 22:23 Date of Discharge: Jan 23, 2025 Labs/Diagnostic Data: Laboratory Results Test 01/23/25 11:44 01/23/25 05:47 01/22/25 06:52 01/21/25 06:19 POC Glucose 292 mg/dl (70-106) White Blood Count 4.4 10^3/uL (4.4-10.8) Red Blood Count 4.86 10^6/uL (4.5-5.90) Hemoglobin 9.8 g/dL (13.5-17.5) Hematocrit 31.6 % (41.0-53.0) Mean Corpuscular Volume 65.0 fL (80.0-100.0) Mean Corpuscular Hemoglobin 20.2 pg (28.0-32.0) Mean Corpuscular Hemoglobin Concent 31.1 g/dL (32.0-36.0) Red Cell Distribution Width 20.2 % (11.8-14.3) Platelet Count 60 10^3/uL (140-450) Mean Platelet Volume 9.0 fL (6.9-10.8) Neutrophils (%) (Auto) 40.9 % (37.0-80.0) Lymphocytes (%) (Auto) 47.1 % (10.0-50.0) Monocytes (%) (Auto) 11.0 % (0.0-12.0) Eosinophils (%) (Auto) 0.6 % (0.0-7.0) Basophils (%) (Auto) 0.4 % (0.0-2.0) Neutrophils # (Auto) 1.8 10 ^3/uL (1.6-8.6) Lymphocytes # (Auto) 2.1 10 ^3/uL (0.4-5.4) Monocytes # (Auto) 0.5 10 ^3/uL (0-1.3) Eosinophils # (Auto) 0 10 ^3/uL (0-0.8) Basophils # (Auto) 0 10 ^3/uL (0-0.2) Nucleated Red Blood Cells 0.3 % Sodium Level 139 mmol/L (136-145) Potassium Level 4.1 mmol/L (3.5-5.1) Chloride Level 100 mmol/L (98-107) Carbon Dioxide Level 28 mmol/L (20-31) Anion Gap 11 (5-15) Blood Urea Nitrogen 22 mg/dL (9-23) Creatinine 1.96 mg/dL (0.700-1.30) Glomerular Filtration Rate Calc 34 mL/min (>90) BUN/Creatinine Ratio 11.2 (10.0-20.0) Serum Glucose 108 mg/dL (74-106) Calcium Level 8.4 mg/dL (8.7-10.4) Random Vancomycin Level 12.9 ug/mL (5-10) Platelet Estimate Decreased Hypochromasia (manual) Marked Anisocytosis (manual) Slight Microcytosis Marked Hepatitis B Surface Antigen Negative (Negative) Test 01/20/25 04:15 01/19/25 23:12 01/19/25 11:26 01/19/25 11:04 Stool Occult Blood Negative (Negative) Stool Occult Blood Sample #3 (Negative) Lactic Acid Level 1.3 mmol/L (0.4-2.0) Schistocytes Few Magnesium Level 1.8 mg/dL (1.6-2.6) Total Bilirubin 1.0 mg/dL (0.2-1.0) Aspartate Amino Transferase (AST) 14 U/L (13-40) Alanine Aminotransferase (ALT) 18 U/L (7-40) Alkaline Phosphatase 81 U/L (46-116) Total Protein 7.3 g/dL (5.7-8.2) Albumin 3.7 g/dL (3.2-4.8) Urine Color Light-orange (Yellow) Urine Clarity Ex.turbid (Clear) Urine pH 6.5 (5.0-9.0) Urine Specific [place] 1.015 (1.001-1.035) Urine Protein 1+ (Negative) Urine Ketones 1+ (Negative) Urine Blood 3+ /uL (Negative) Urine Nitrite Negative (Negative) Urine Bilirubin Negative (Negative) Urine Urobilinogen Normal mg/dL (Negative) Urine Leukocyte Esterase 3+ /uL (Negative) Urine RBC 25 /hpf (0 - 3) Urine WBC Clumps Present /hpf (None Seen) Urine Microscopic WBC 616 /HPF (0-3) Urine Squamous Epithelial Cells None seen /hpf (<5) Urine Bacteria Few /hpf (None Seen) Urine Mucus Few (None Seen) Urine Yeast (Budding) Moderate /hpf (None Seen) Urine Glucose 4+ mg/dL (Normal) Urine Opiates Screen Neg (NEGATIVE) Urine Fentanyl Screen Neg (NEGATIVE) Urine Barbiturates Screen Neg (NEGATIVE) Urine Phencyclidine Screen Neg (NEGATIVE) Urine Amphetamines Screen Neg (NEGATIVE) Urine Benzodiazepines Screen Neg (NEGATIVE) Urine Cocaine Screen Neg (NEGATIVE) Urine Cannabinoids Screen Pos (NEGATIVE) Other Laboratory Tests 01/23/25 05:47 Brief Hx & Hospital Course: 79-year-old male with past medical history of DM, hemodialysis, left lung transplant presents with complaints overall just not feeling well. Information in HPI is limited due to the patient a poor historian. During the emergency department evaluation patient is found to be positive for UTI. Lactic acid levels were also 2.1/2.1. Patient did endorsed that he has missed dialysis due to not feeling well. Patient did contact child support case officer RN to tell them he was not feeling well earlier in the day and blood pressure was high, and he had contacted paramedics. At this time there are no complaints fevers, chills, shortness of breath, chest pain, palpitations abdominal pain nausea, vomiting. He is admitted and noted to have a 1/2 blood cultures positive with the staff homeless organisms. Patient was treated with IV antibiotics. He is repeat blood cultures been negative for growth. However he is advised to finish the antibiotic course for another seven days at home. Otherwise while in the hospital patient underwent dialysis. Otherwise rest of has a workup and evaluations are unremarkable. Patient is clinically feeling better. Back to his normal status. Therefore in his [place] cannabis able to discharged home. Have talked with the patient regarding his hospital diagnosis, treatment she received, discharge medications, discharge instructions and follow up plan of care. He has been placed understanding of this and agree with the care plan as outlined. Consults/Reason for consult Problem List/Assessment/Plan ESRD on hemodialysis Status post lung transplant Fever, nausea vomitings---rule out line infection UTI Anemia of chronic kidney disease Recommendations Continue with UF one to 2 L as tolerated Epogen 67012 subQ 3 times a week Strict I&Os Renal diet IV antibiotics Continue home medications We will continue to follow Plan discussed with: Other My Orders My Orders Orders - BRENDEN SINGH MD Procedure Category Date Status Time Vancomycin,Random LAB 01/23/25 Verified 05:00 BRENDEN SINGH MD Jan 22, 2025 17:40 Condition at Discharge: Stable Final Diagnosis/Problems List gen.weakness, esrd on dialysis with missed dialysis, chronic resp. failure Discharge Disposition: Home Discharge Instruct/Medications Diet: Consistent carbohydrate, Cardiac 2g Na,low cholest Activity: No Restrictions, As Tolerated Follow Up/Referral: [facility] dialysis on Saturday Medications: home medications and antibiotic as prescribed Scheduled Amiodarone Hcl (Amiodarone Hcl), 1 TAB PO DAILY Apixaban Base (Eliquis), 2.5 MG PO BID Atorvastatin Calcium (Atorvastatin Calcium), 20 MG PO HS, (Reported) Calcium Citrate-Vitamin D (Calcitrate Plus D 315-200 mg-Unit), 1 TAB PO BID Doxycycline (Monohydrate) (Doxycycline), 100 MG PO BID Entecavir Monohydrate (Entecavir), 0.5 MG PO Q72HR, (Reported) Everolimus (Everolimus), 4 TAB PO BIDAC, (Reported) Finasteride (Finasteride), 5 MG PO HS, (Reported) Gabapentin (Gabapentin), 100 MG PO BID, (Reported) Insulin Detemir (Levemir Flextouch), 20 UNIT SC HS, (Reported) Insulin Lispro (Humalog Kwikpen), 5 UNIT SC AC, (Reported) Metoprolol Tartrate (Lopressor), 25 MG PO Q12HR Multiple Vitamin (Multivitamins), 1 CAP PO DAILY, (Reported) Mycophenolate Mofetil (Mycophenolate Mofetil), 500 MG PO BID, (Reported) Nateglinide (Nateglinide), 120 MG PO TIDWM, (Reported) Prednisone (Prednisone), 2.5 MG PO TID, (Reported) Tamsulosin Hcl (Tamsulosin Hcl), 0.8 MG PO QPM, (Reported) Yeast (S. Boulardii)(S. Cerevi (Florastor), 250 MG PO DAILY Scheduled PRN Hydrocodone-Acetaminophen (Hydrocodone Bitartrate/AC 5-325 mg), 1 TAB PO Q8HPRN PRN Discharge Statement: "Patient was advised to return to the ER or call 911 if any headaches, dizziness, shortness of breath, chest pain, abdominal pain, bleeding, fevers, or worsening of medical condition. Patient was counseled about treatment plan, medications, possible side effects, patientverbalized understanding. All questions were answered to the best of my ability. This discharge took greater then 30 minutes in planning, reviewing documentation, counseling the patient, and discussing with other team members." ASSESSMENT ASSESSMENT Assessment gen.weakness, esrd on dialysis with missed dialysis, chronic resp. failure HERRERA ENRIQUEZ MD Jan 23, 2025 14:32
--- NOTE | 2025-01-23 15:11 | DVHPN2 ---
Progress Note Date Seen: Jan 23, 2025 Medical Necessity Reason Pt with a Central, PICC or Fol: No Subjective Patient reports: No new complaints, Feels better Review of Systems: Deferred Objective vital signs Vital Sign Date Time Temp Pulse Resp B/P (MAP) Pulse Ox O2 Delivery O2 Flow Rate FiO2 01/23/25 14:27 98.6 88 17 99 01/23/25 13:00 97/63 (74) 01/23/25 10:32 Nasal Cannula 2.0 01/23/25 10:32 28 Total Intake and Output 01/22/25 01/22/25 01/23/25 15:00 23:00 07:00 Intake Total 100 ml 1070 ml 480 ml Output Total 900 ml 800 ml Balance 100 ml 170 ml -320 ml medications Current Medications Medications Dose Ordered Sig/Anish Route Start Time Stop Time Status Last Admin Dose Admin Acetaminophen 650 mg Q6HP PRN PO 01/19/25 22:30 Acetaminophen/ Hydrocodone Bitart 1 tab Q4HP PRN PO 01/19/25 22:30 Ondansetron HCl 4 mg Q4HP PRN IV 01/19/25 22:30 Morphine Sulfate 2 mg Q4HPRN PRN IV 01/19/25 22:30 Nitroglycerin 0.4 mg Q5MINP PRN SL 01/19/25 22:30 Morphine Sulfate 2 mg Q30M PRN IV 01/19/25 22:30 Diagnostic Test (Pha) 1 strip ACHS 01/20/25 07:00 01/23/25 11:30 1 STRIP Insulin Human Regular ACHS SC 01/20/25 07:00 01/23/25 12:13 6 UNITS Dextrose 50 ml UD PRN IV 01/19/25 22:30 Ceftriaxone Sodium 50 ml @ 100 mls/hr Q24H IV 01/20/25 17:00 01/22/25 16:52 100 MLS/HR Albuterol 2.5 mg Q4HP PRN NEB 01/19/25 22:30 Ipratropium [place] 0.5 mg Q4HPRN PRN NEB 01/19/25 22:30 Amiodarone HCl 200 mg DAILY PO 01/20/25 10:00 Metoprolol Tartrate 25 mg BID PO 01/20/25 10:00 Tamsulosin HCl 0.4 mg DAILY PO 01/20/25 10:00 Patient Own Medication 2 mg BID PO 01/20/25 10:00 Patient Own Medication 120 mg TIDAC PO 01/20/25 08:00 Vancomycin HCl 0 ml @ 0 mls/hr UD IV 01/20/25 17:45 Examination: GENERAL:Normal, MSK:Normal laboratory and microbiology Laboratory Tests 01/23/25 05:47 Test 01/23/25 05:47 Range/Units Serum Glucose 108 H 74-106 mg/dL Microbiology Date/Time Source Procedure Growth Status 01/22/25 14:30 Blood Blood Culture - Preliminary NO GROWTH AFTER 24 HOURS OF INCUBATION. Resulted 01/19/25 13:00 Voided Urine Urine Culture - Final Complete Problem List/Assessment/Plan Problem List/Assessment/Plan ESRD on hemodialysis Status post lung transplant Fever, nausea vomitings---rule out line infection UTI Anemia of chronic kidney disease Recommendations Continue with UF one to 2 L as tolerated next HD saturday if still here renal function appears to be improving-will need outpt eval for renal recovery Plan discussed with: Patient BRENDEN SINGH MD Jan 23, 2025 15:11
== END 2025-01-23 16:00 | disposition home health service (06) | DRG 689 ==
LOC: ER 10:43 → EDBD 10:43 → OVERFLOW 22:23 → TELE-EAST 01-20 17:05
PROVIDERS: ADMIT Internal Medicine; ATTEND Internal Medicine
PROC: 5A1D70Z Performance of Urinary Filtration, Intermittent, Less than 6 Hours Per Day (ICD-10-PCS; principal; 2025-01-21)
DX: N30.01 Acute cystitis with hematuria (principal); N18.6 End stage renal disease; E87.20 Acidosis, unspecified; Z94.2 Lung transplant status; J96.10 Chronic respiratory failure, unspecified whether with hypoxia or hypercapnia; I12.0 Hypertensive chronic kidney disease with stage 5 chronic kidney disease or end stage renal disease; Z99.2 Dependence on renal dialysis; E11.22 Type 2 diabetes mellitus with diabetic chronic kidney disease; D63.1 Anemia in chronic kidney disease; E78.5 Hyperlipidemia, unspecified; I48.91 Unspecified atrial fibrillation; J44.9 Chronic obstructive pulmonary disease, unspecified; Z82.3 Family history of stroke; Z83.3 Family history of diabetes mellitus; Z99.81 Dependence on supplemental oxygen; Z79.899 Other long term (current) drug therapy; Z91.158 Patient's noncompliance with renal dialysis for other reason; Z79.4 Long term (current) use of insulin; Z79.01 Long term (current) use of anticoagulants
CPT/HCPCS: 36415; 71045; 76775; 80048; 80053; 80202; 80307; 81001; 82270; 82962; 83605; 83735; 85025; 87040; 87077; 87086; 87186; 87340; 90935; 96365; 97110; 97116; 97163; 97530; 99291; G0378; J1815; P9047